=== PATIENT | male | born 1960 | race Caucasian/White ===

== ENCOUNTER 2025-05-29 05:12 | Inpatient (IN) | payer MEDICAID, SELFPAY ==
[2025-05-29] VITALS (20 sets, daily range): BP systolic 91–138; BP diastolic 61–118; PULSE 87–115; RESP 10–33; TEMP 35.7–36.7; O2SAT 80–100; BMI 24.4; BMI 23.3
--- NOTE | 2025-05-29 05:17 | EKG_ITS ---
[facility] Test Date: 2025-05-29 Pat Name: JULIANNA WU Department: Room: - Gender: Male [place] Tier: : 1960 Requested By: ED Temporary Provider Order Number: [id number] Reading MD: ED Temporary Provider Measurements Intervals [place] Rate: 112 P: [place]: QRS: 98 QRSD: 118 T: -51 QT: 338 QTc: 462 Interpretive Statements SUPRAVENTRICULAR TACHYCARDIA RIGHT BUNDLE BRANCH BLOCK [120+ ms QRS DURATION, UPRIGHT V1, 40+ ms S IN I/aVL/V4/V5/V6] ST DEVIATION AND MARKED T-WAVE ABNORMALITY, CONSIDER LATERAL ISCHEMIA [-0.5+ mV T-WAVE IN I/aVL/V5/V6] Compared to ECG 03/03/2018 09:40:22 T-wave abnormality now present Possible ischemia now present Sinus rhythm no longer present /store/S0/[id number].pdf
--- NOTE | 2025-05-29 05:22 | XR_ITS ---
EXAMINATION: AP chest single view TECHNIQUE: AP portable upright chest single view Date and time: May 29, 2025, 0523 hours, comparison 03/03/2018. INDICATION: Shortness of breath today. FINDINGS: Extensive bilateral pneumonia Mild to moderate right pleural effusion Mild enlargement cardiac contour with vascular congestion Moderate osteopenia IMPRESSION: Extensive bilateral pneumonia
--- NOTE | 2025-05-29 05:22 | XR_ITS ---
Examination: Abdomen sonogram, Limited Date and time of exam: May 29, 2025, 0625 hours INDICATIONS: Right upper abdominal pain this week Technique: Real-time kumar scale transabdominal sonographic images of the upper abdomen obtained. Findings: Negative for gallstones Gallbladder wall 0.14 cm, fluid adjacent to the gallbladder but the patient has ascites Common bile duct 0.40 cm Pancreas obscured by bowel gas Liver 14.2 cm ascites in the right upper abdomen and right lower abdomen Normal hepatopetal portal venous send Patent IVC IMPRESSION: Negative for cholelithiasis, negative for cholecystitis No common bile duct stones At least mild ascites
--- NOTE | 2025-05-29 05:23 | XR_ITS ---
EXAMINATION: Testicular sonography complete TECHNIQUE: Grayscale sonographic images testes, assessment arterial inflow and venous outflow Doppler spectral analysis color flow analysis Date and time: May 29, 2025, 0616 hours INDICATIONS: Testicular swelling and tenderness several months. FINDINGS: Right testis 3.3 cm epididymis 1.2 cm Arterial flow to testicle. No testicular mass No diagnostic visualization of the left testicle secondary to large hydrocele Possible solid mass in the scrotal sac 4 x 4.0 x 4.4 cm IMPRESSION: No right testicular torsion or testicular mass There is no diagnostic visualization of the left testicle, lack of patient cooperation Repeat this study when the patient is sedated or can cooperate
--- NOTE | 2025-05-29 05:23 | XR_ITS ---
Examination: CTA chest with intravenous contrast 2-D reconstructions 3-D reconstructions, vascular Date and time of exam: May 29, 2025, 0838 hours INDICATIONS: Chest pain shortness of breath today CTDI: vol (mGy) 7.35 DLP: (mGycm) 295 Technique: Multiple axial sections of the thorax have been obtained. 3 mm slice thickness, from below the hemidiaphragms to above the apices of the lungs. Mediastinal and lung density settings have been obtained. 2-D sagittal and coronal reconstructions. 3-D angiographic renderings, 3-D volume renderings, 3D post processing, vascular maximum intensity projections obtained. Contrast administered is 100 cc Isovue-370. Low dose protocols were performed. One or more of the following dose reduction techniques were used; automated exposure control, adjustment of the mA and/or KV according to patient size, use of iterative reconstruction technique. Findings: Multiple bilateral large pulmonary artery emboli including in distal left main pulmonary artery segment Pulmonary mass in the right upper lobe, at least 9 x 5.6 cm invading the right mediastinum with right hilar lymphadenopathy Large right malignant pleural effusion Pneumonia in the right lung Extensive pneumonia in the left upper lobe Multiple pulmonary nodules, the largest in the left lower lobe 7 mm Pericardial effusion measuring 10 mm at the cardiac apex Liver nodular in contour Anasarca Mild ascites Spleen is not enlarged No pancreatic mass No hydronephrosis Moderate thoracic spondylosis IMPRESSION: Mild bilateral pulmonary artery emboli 9 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
--- NOTE | 2025-05-29 05:23 | XR_ITS ---
Examination: Venous duplex lower extremity sonogram, bilateral. Date and time of exam: May 29, 2025, 0704 hours INDICATIONS: Elevated D-dimer today Technique: Multiple sonographic images of the deep venous system have been obtained. B-mode/2-D grayscale imaging of vascular structures and Doppler spectral analysis (waveforms) and color performed Both legs are examined. Findings: Deep venous systems do not demonstrate abnormal echogenicity. All visualized deep veins exhibit compressibility. All visualized deep veins exhibit augmentation. Impression: Negative for deep vein thrombosis
--- NOTE | 2025-05-29 05:23 | XR_ITS ---
Examination: CT abdomen with intravenous contrast CT pelvis with intravenous contrast 2-D coronal reconstructions 2-D sagittal reconstructions Date and time of exam: May 29, 2025, 0830 hours INDICATION: Generalized abdominal pain today. CTDI: vol (mGy) 6.76 DLP: (mGycm) 429 Technique: Multiple axial sections of the abdomen and pelvis have been obtained. 64 slice high-resolution scanner used. 3 mm axial sections have been obtained, post intravenous injection 100 cc Isovue-370 2-D sagittal, coronal reconstructions obtained. Low dose protocols were performed. One or more of the following dose reduction techniques were used; automated exposure control, adjustment of the mA and/or KV according to patient size, use of iterative reconstruction technique. Findings: Large right pleural effusion with right lung pneumonia and small pericardial effusion Liver irregular in contour, cirrhosis pattern Anasarca Mild ascites No definite gallstones Spleen is not enlarged No pancreatic mass Minimal nodular thickening left adrenal gland No hydronephrosis Aortic calcification no aneurysmal dilatation No bowel obstruction Urinary bladder intact Left inguinal hernia containing small bowel as well as colon but no incarcerated bowel Severe osteopenia Grade 1 spondylolisthesis L5 on S1 Advanced degenerative disc disease L5-S1 IMPRESSION: Large right pleural effusion Pneumonia right lung Cirrhosis Anasarca Mild ascites No bowel obstruction Left inguinal hernia containing small bowel and colon but no incarcerated bowel or bowel obstruction
[2025-05-29] MEDS: NITROGLYCERIN OINT 2% 1 INCH PACKET TOP (05:30)
[2025-05-29] MEDS: FUROSEMIDE INJ 10 MG/ML 4ML VIAL 40 MG IVP (05:31)
[2025-05-29] MEDS: MORPHINE SULF INJ 4 MG/ML VIAL 2 MG IV (05:31)
[2025-05-29 05:41] LABS: Base Excess -9 (-3-3); HCO3 14 mEq/L (20-26); Inspired Oxygen, FIO2 30 %; O2 Saturation 87 % (91-98); PCO2 24 mmHg (32.0-48.0); pH, Arterial 7.38 (7.35-7.45)
[2025-05-29 05:45] LABS: Allen Test Performed/OK; PO2 57 mmHg (83-108); Puncture Site Right Radial
[2025-05-29 05:45] LABS: Lactate (Lactic Acid) 9.0 mMol/L (0.4-2.0)
[2025-05-29 05:48] LABS: Basophils # (Auto) 0.1 Thou/mm3 (0.0-0.2); Basophils % (Auto) 0 % (0-2.5); Eosinophils # (Auto) 0.0 Thou/mm3 (0.0-0.5); Eosinophils % (Auto) 0 % (0-10); Hematocrit 46.8 % (41.0-53.0); Hemoglobin 13.4 g/dL (13.5-16.0); Immature Granulocytes Auto 0.95 Thou/mm3 (0.00-0.00); Lymphocytes # (Auto) 1.0 Thou/mm3 (1.0-4.8); Lymphocytes % (Auto) 7 % (10-50); Mean Corpuscular HGB Conc 28.6 g/dl (31.0-37.0); Mean Corpuscular Hemoglobin 25.7 pg (25.0-35.0); Mean Corpuscular Volume 90 fL (80-100); Monocytes # (Auto) 0.5 Thou/mm3 (0.0-0.8); Monocytes % (Auto) 3 % (0-12); Neutrophils # (Auto) 11.6 Thou/mm3 (1.8-7.7); Neutrophils % (Auto) 83 % (37-80); Nucleated Red Blood Cell # 0.12 Thou/mm3 (0.00-0.00); Nucleated Red Blood Cell % 1 /100 WBC (0); Platelet Count 129 Thou/mm3 (140-440); RDW Standard Deviation 65.0 fL (35.1-43.9); Red Blood Count 5.21 Miln/mm3 (4.50-5.90); White Blood Count 14.0 Thou/mm3 (3.8-10.6)
[2025-05-29 05:57] LABS: INR 1.7 (0.9-1.3); Partial Thromboplastin Time 28.8 Seconds (22.0-36.0); Prothrombin Time 17.1 Seconds (9.0-12.2)
[2025-05-29 06:01] LABS: Ammonia 16 uMol/L (11-32)
[2025-05-29 06:08] LABS: Sed Rate (ESR) 48 mm/hr (0-20)
[2025-05-29 06:26] LABS: D-Dimer > 3820 ng/mL (<600)
[2025-05-29 06:35] LABS: Acetaminophen 2.5 mcg/mL (10.0-20.0); Alanine Aminotransferase 398 U/L (10-49); Albumin, Serum 3.4 gm/dL (3.4-4.8); Albumin/Globulin Ratio 0.9 (1.2-2.2); Alcohol, Blood Medical < 10.0 mg/dL (0-10.0); Alkaline Phosphatase 147 U/L (46-116); Amylase 53 U/L (30-118); Anion Gap 18 (7-16); Aspartate Amino Transferase 436 U/L (0-34); BUN/Creatinine Ratio 20 Ratio (12-20); Bilirubin,Direct 1.0 mg/dL (0.0-0.3); Bilirubin,Total 1.8 mg/dL (0.3-1.2); Blood Urea Nitrogen 24 mg/dL (9-23); C-Reactive Protein 7.1 mg/dL (0.0-0.9); Calcium 9.0 mg/dL (8.3-10.6); Calcium (Corrected) 9.5 mg/dL (8.5-10.1); Carbon Dioxide 15.7 mMol/L (20.0-31.0); Chloride 108 mMol/L (98-107); Creatine Kinase 212 U/L (34-171); Creatinine (Component) 1.2 mg/dL (0.6-1.3); Estimated Creatinine Clearance 70.1 mL/min (>60); Globulin 4.0 gm/dL (2.3-3.5); Glucose 130 mg/dL (74-106); Lipase 38 U/L (12-53); Magnesium 2.2 mg/dL (1.6-2.6); Osmolality,Calculated 289 (275-295); Potassium 4.5 mMol/L (3.4-5.1); Procalcitonin 1.33 ng/ml (0.0-0.49); Salicylate < 3.0 mg/dL; Sodium 142 mMol/L (136-145); Thyroid Stimulating Hormone 3.42 uIU/mL (0.55-4.78); Total Protein 7.4 gm/dL (5.7-8.2); Troponin I 0.037 ng/mL (0.0-0.045); eGFR > 60 See Note
[2025-05-29 06:35] LABS: COVID-19 Antigen (In-House) Negative (Negative)
[2025-05-29 06:38] LABS: Influenza A Ag Negative; Influenza B Ag Negative
[2025-05-29] MEDS: MethylPREDNISolone SOD SUCC 62.5 MG/ML 2ML VIAL 125 MG IVP (06:47)
[2025-05-29] MEDS: PIPER/TAZO 3.375 GM PREMIX 3.375 GM/50 ML BAG IV ×3 (06:47→21:07)
[2025-05-29 06:48] LABS: B-Type Natriuretic Peptide 207 pg/mL (0-100)
[2025-05-29] MEDS: ALBUTEROL RT 2.5 MG/0.5 ML NEBU 5 MG INH (06:52)
[2025-05-29] MEDS: SODIUM CHLORIDE RT SOL 0.9% 3 ML NEBU INH (06:52)
[2025-05-29 07:12] LABS: Collection Type, Urine Clean Catch
[2025-05-29 07:53] LABS: Bilirubin,Urine Negative (Negative); Blood,Urine Negative (Negative); Clarity,Urine Clear (Clear/Hazy); Color,Urine Yellow (Lt Yel-Yel); Culture Indicated,Urine Not Indicated; Glucose, Urine Negative (Negative); Hyaline Casts,Urine < 1 /hpf (0-1); Ketones,Urine Negative (Negative); Leukocyte Esterase,Urine Negative (Negative); Nitrite,Urine Negative (Negative); PH,Urine 6.0 (5.0-7.0); Protein,Urine 1+ (Neg - Trace); RBC,Urine 7 /hpf (0-3); Specific Gravity,Urine 1.022 (1.001-1.035); Squamous Epithelial Cell,Urine < 1 /hpf (0-5); Urobilinogen,Urine 2.0 mg/dL (0.0-1.0); WBC,Urine 3 /hpf (0-5)
[2025-05-29 07:54] LABS: Amphetamine/Methamp Scrn,U Positive (Negative); Barbiturate Screen,Urine Negative (Negative); Benzodiazepines Screen,Urine Negative (Negative); Benzoylecgonine Screen, Ur Negative (Negative); Fentanyl Screen,Urine Negative (Negative); Opiate Screen,Urine Positive (Negative); THC Screen,Urine Positive (Negative)
--- NOTE | 2025-05-29 08:10 | PC.NURSE ---
Pt. here from home to room 1, pt. states he has been SOB X 1 week. Pt. is not in distress at this time. Pt. is on BiPaP and tolerating well. 2 warm blankets placed on pt. and he states thank you.
[2025-05-29 08:35] LABS: Reflex Lactate? Y
[2025-05-29 08:56] LABS: Lactic Acid, 3 HR 4.7 mMol/L (0.4-2.0)
--- NOTE | 2025-05-29 10:00 | PD.EDSOB ---
ED SOB =RME/HPI General Chief Complaint: Shortness of Breath/Dyspnea Stated Complaint: SOB Time Seen by Provider: 05/29/25 06:24 Arrival date/time: 05/29/25 05:12 Limitations: no limitations RME / HPI RME / HPI Narrative: 64 year old male with history of asthma presents to the ED BIBA from home for evaluation of shortness of breath today. Per medics, on scene patient appeared to be in respiratory distress, pale, and saturating 86% on 10L O2. Placed on a nonrebreather at 12L with improvement to 91%. In the ED, patient reports the shortness of breath began 2 weeks ago and worsened last night. Described feeling he was not getting enough air in that was not improved with use of home oxygen. Denies fevers, chills, sweats, chest pain, abdominal pain, n/v. Related Data Home Medications ?Medication ?Instructions ?Recorded ?Confirmed No Known Home Medications 03/02/18 03/02/18 Allergies Allergy/AdvReac Type Severity Reaction Status Date / Time No Known Allergies Allergy Unverified 03/06/18 10:09 Review of Systems Review of Systems Systems Reviewed: All systems reviewed, normal except as documented Past Medical History Past Medical History RESPIRATORY: Positive Asthma GASTROINTESTINAL: Positive Gastrointestinal Disorders (HERNIA) MUSCULOSKELETAL: Positive Musculoskeletal Disorders and Fractures (right forearm) PSYCHO/SOCIAL: Positive Psychiatric Problems, Schizophrenia and Anxiety OTHER HISTORY: Positive Chicken Pox and Measles Family History FAMILY HISTORY: Positive Family Respiratory Disorders (father-emphysema) and Family Cardiac Disorders (father-htn) Surgical History SURGICAL: Positive Ear Surgery, Tonsillectomy and Open Reduction Internal Fixation (right forearm) Social History SMOKING STATUS: Current every day smoker ED Exam General Limitations: Present no limitations General appearance: Present alert (oriented) and other (On my examination, the patient had BiPAP in place, answering questions appropriately) Head Head exam: Present atraumatic Eye Eye exam: Present normal appearance, PERRL and EOMI ENT ENT exam: Present normal exam, normal oropharynx and mucous membranes moist Neck Neck exam: Present normal inspection, full ROM and trachea midline Chest Chest inspection: Present normal inspection and symmetric chest wall rise Respiratory Respiratory exam: Present other (Anterior and posterior wheezing and rhonchi bilaterally) Cardiovascular Cardiovascular exam: Present normal rhythm, tachycardia and normal heart sounds Abdominal Exam Abdominal exam: Present soft and normal bowel sounds Extremities Exam Extremities exam: Present normal inspection and full ROM Back Exam Back exam: Present normal inspection and full ROM Neurological Exam Neurological exam: Present alert, oriented X3 and CN II-XII intact Psychiatric Psychiatric exam: Present normal affect and normal mood Skin Skin exam: Present warm, dry, intact and normal color Course Quality Measures none Orders Category Date Time Status Admit to Inpatient Status Routine Admission 05/29/25 12:08 Active Patient Condition Routine Admission 05/29/25 12:07 Ordered Bedside COVID-19 Antigen Test NOW Care 05/29/25 10:28 Active COVID-19 Screening Questionnaire NOW Care 05/29/25 09:[address] Screening NOW Care 05/29/25 05:23 Active Continuous Pulse Oximetry NOW Care 05/29/25 12:07 Active Continuous Pulse Oximetry STAT Care 05/29/25 06:36 Completed Decision to Admit X1 Care 05/29/25 09:52 Active EKG (ED ONLY) *Do not use* NOW Care 05/29/25 05:17 Completed NPO STAT Care 05/29/25 06:36 Active Neuro Check Q4H Care 05/29/25 12:07 Active Notify provider NEEDED Care 05/29/25 12:07 Active Notify provider NOW Care 05/29/25 12:14 Active Obtain weight daily Care 05/29/25 12:09 Active Saline [Insert IV] NOW Care 05/29/25 05:20 Active Strict Intake and Output Routine Care 05/29/25 06:36 Ordered Strict Intake and Output Routine Care 05/29/25 12:09 Ordered Referral Respiratory Therapy Stat Cons 05/29/25 05:20 Active Diet Cardiac Diet 05/29/25 Lunch Active CA echo doppler complete Stat Exams 05/29/25 12:[address] abdomen pelvis w con Stat Exams 05/29/25 05:[address] angio chest Stat Exams 05/29/25 05:23 Completed CXR [XR chest 1V post procedure] Stat Exams 05/29/25 12:16 Ordered EKG (ED Only) Stat Exams 05/29/25 05:17 Draft US abdomen limited Stat Exams 05/29/25 05:22 Completed US testicular Stat Exams 05/29/25 05:23 Completed US venous doppler LE BI Stat Exams 05/29/25 05:23 Completed XR chest 1V portable Stat Exams 05/29/25 05:22 Completed ABG [Arterial Blood Gas] Stat Lab 05/29/25 05:33 Completed Acetaminophen Stat Lab 05/29/25 05:25 Completed Alcohol, Blood Medical Stat Lab 05/29/25 05:25 Completed Ammonia Stat Lab 05/29/25 05:25 Completed Amylase Stat Lab 05/29/25 05:25 Completed Amylase,Pleural Fluid Routine Lab 05/29/25 12:02 Results BNP [B-Type Natriuretic Peptide] Stat Lab 05/29/25 05:25 Completed Bilirubin,Direct Stat Lab 05/29/25 05:25 Completed Blood Culture (Lab) Stat Lab 05/29/25 05:25 Received Body Fld Cult w Nela & Gram St Routine Lab 05/29/25 12:02 Received CBC AM DRAW Lab 05/30/25 05:00 Ordered CBC AM DRAW Lab 05/31/25 05:00 Ordered CBC AM DRAW Lab 06/01/25 05:00 Ordered CBC AM DRAW Lab 06/02/25 05:00 Ordered CBC AM DRAW Lab 06/03/25 05:00 Ordered CBC AM DRAW Lab 06/04/25 05:00 Ordered CBC AM DRAW Lab 06/05/25 05:00 Ordered CBC Stat Lab 05/29/25 05:25 Completed CK [Creatine Kinase] Stat Lab 05/29/25 05:25 Completed CMP [Comprehensive Metabolic Panel] AM DRAW Lab 05/30/25 05:00 Ordered CMP [Comprehensive Metabolic Panel] AM DRAW Lab 05/31/25 05:00 Ordered CMP [Comprehensive Metabolic Panel] AM DRAW Lab 06/01/25 05:00 Ordered CMP [Comprehensive Metabolic Panel] AM DRAW Lab 06/02/25 05:00 Ordered CMP [Comprehensive Metabolic Panel] AM DRAW Lab 06/03/25 05:00 Ordered CMP [Comprehensive Metabolic Panel] AM DRAW Lab 06/04/25 05:00 Ordered CMP [Comprehensive Metabolic Panel] AM DRAW Lab 06/05/25 05:00 Ordered CMP [Comprehensive Metabolic Panel] Stat Lab 05/29/25 05:25 Completed COVID-19 Antigen (In-House) Stat Lab 05/29/25 05:40 Completed CRP [C-Reactive Protein] Stat Lab 05/29/25 05:25 Completed D-Dimer Stat Lab 05/29/25 05:25 Completed Drug Screen,Urine Stat Lab 05/29/25 06:50 Completed ESR [Sed Rate (ESR)] Stat Lab 05/29/25 05:25 Completed Ferritin Stat Lab 05/29/25 12:33 Received Folate Stat Lab 05/29/25 12:33 Received Glucose,Pleural Fluid Routine Lab 05/29/25 12:02 Results Influenza A & B Rapid Panel Stat Lab 05/29/25 05:40 Completed Iron Panel Routine Lab 05/29/25 12:33 Received LDH (Lactate Dehydrogenase) Stat Lab 05/29/25 08:50 Received LDH,Pleural Fluid Routine Lab 05/29/25 12:02 Results Lactate (Lactic Acid) Stat Lab 05/29/25 05:25 Completed Lactic Acid, 3 HR Stat Lab 05/29/25 08:50 Completed Lipase Stat Lab 05/29/25 05:25 Completed Lipid Panel AM DRAW Lab 05/30/25 05:00 Ordered MRSA Nasal Screen Stat Lab 05/29/25 12:20 Ordered Magnesium AM DRAW Lab 05/30/25 05:00 Ordered Magnesium AM DRAW Lab 05/31/25 05:00 Ordered Magnesium AM DRAW Lab 06/01/25 05:00 Ordered Magnesium AM DRAW Lab 06/02/25 05:00 Ordered Magnesium AM DRAW Lab 06/03/25 05:00 Ordered Magnesium AM DRAW Lab 06/04/25 05:00 Ordered Magnesium AM DRAW Lab 06/05/25 05:00 Ordered Magnesium Stat Lab 05/29/25 05:25 Completed PT [Prothrombin Time with INR] Stat Lab 05/29/25 05:25 Completed PTT [Partial Thromboplastin Time] Stat Lab 05/29/25 05:25 Completed Partial Thromboplastin Time AM DRAW Lab 05/31/25 05:00 Ordered Path Review Blood Smear Stat Lab 05/29/25 12:33 Received Phosphorous AM DRAW Lab 05/30/25 05:00 Ordered Phosphorous AM DRAW Lab 05/31/25 05:00 Ordered Phosphorous AM DRAW Lab 06/01/25 05:00 Ordered Phosphorous AM DRAW Lab 06/02/25 05:00 Ordered Phosphorous AM DRAW Lab 06/03/25 05:00 Ordered Phosphorous AM DRAW Lab 06/04/25 05:00 Ordered Phosphorous AM DRAW Lab 06/05/25 05:00 Ordered Pleural Fld Cell Count Diff Routine Lab 05/29/25 12:02 Results Procalcitonin Stat Lab 05/29/25 05:25 Completed Protein Total,Pleural Fluid Routine Lab 05/29/25 12:02 Results Prothrombin Time with INR AM DRAW Lab 05/31/25 05:00 Ordered Salicylate Stat Lab 05/29/25 05:25 Completed Sputum Culture and Gram Stain Stat Lab 05/29/25 12:20 Ordered TSH [Thyroid Stimulating Hormone] Stat Lab 05/29/25 05:25 Completed Troponin I Stat Lab 05/29/25 05:25 Completed UA, C/S IF [Urinalysis, C/S if Indicated] Stat Lab 05/29/25 06:50 Completed Vitamin B12 Stat Lab 05/29/25 12:33 Received ALBUTEROL RT 0.5ml [Proventil Rt 0.5ml] Med 05/29/25 06:34 Discontinued 5 mg INH X1 ONE Acetaminophen Tab [Tylenol Tab] Med 05/29/25 12:07 Active 325 mg PO Q6H PRN Albuterol/Ipratr Rt Becky [Duoneb Rt Becky] Med 05/29/25 12:07 Active 3 ml INH Q2HR PRN Azithromycin Inj [Zithromax Inj] 500 mg Med 05/29/25 08:56 Active Sodium Chloride 0.9% 250 ml [Ns] 250 ml IV QDAY Enoxaparin [Lovenox] Med 05/29/25 09:25 Discontinued 80 mg SC X1 ONE Furosemide Inj [Lasix Inj] Med 05/29/25 05:20 Discontinued 40 mg IVP X1 ONE Heparin Inj Med 05/29/25 12:14 Discontinued 6,550 unit IV X1 ONE Heparin/D5w 25K 250 ML Ivpb [Heparin in D5w Ivpb] Med 05/29/25 12:15 Active 25,000 unit in 250 ml IV 18 units/kg/hr Ipratropium [place] Rt Becky [Atrovent Rt Becky] Med 05/29/25 13:00 Active 0.5 mg INH Q6HRRT Levalbuterol Rt [Xopenex Rt Becky] Med 05/29/25 13:00 Active 1.25 mg INH Q6HRRT MethylPREDNISolone.* [SoluMEDROL Inj] Med 05/29/25 06:34 Discontinued 125 mg IVP X1 ONE Morphine* Inj Med 05/29/25 05:20 Discontinued 2 mg IV X1 ONE Nicotine Patch [Nicoderm Patch] Med 05/29/25 12:15 Active 21 mg TOP QDAY Nitroglycerin Oint 2% [Nitro-paste Oint 2%] Med 05/29/25 05:20 Discontinued 1 inch TOP X1 ONE Ondansetron Inj [Zofran Inj] Med 05/29/25 12:07 Active 4 mg IVP Q6H PRN Pantoprazole Inj [Protonix Inj] Med 05/29/25 12:15 Active 40 mg IVP QDAY Piper/Tazo 3.375 gm Premix [Zosyn] Med 05/29/25 14:00 Active 3.375 gm in 50 ml IV Q8HR Piper/Tazo 3.375 gm Premix [Zosyn] Med 05/29/25 06:35 Discontinued 3.375 gm in 50 ml IV X1 Sodium Chloride 0.9% 1000 ml [Ns] 2,328 ml Med 05/29/25 06:35 Discontinued IV 2,328 mls/hr Sodium Chloride Rt Becky 0.9% [NS Rt Becky 0.9%] Med 05/29/25 06:34 Active 3 ml INH PRN PRN Sodium Chloride Rt Becky 0.9% [NS Rt Becky 0.9%] Med 05/29/25 12:07 Active 3 ml INH PRN PRN Sodium Chloride Rt Becky 10% [NS Rt Becky 10%] Med 05/29/25 12:20 Discontinued 5 ml INH X1 ONE cefTRIAXone [Rocephin] 2 gm Med 05/29/25 08:55 Discontinued SODIUM CHLORIDE 0.9% (Popper) [Ns 0.9% (P)] 50 ml IV X1 cefTRIAXone/D5w 1gm IV premix [Rocephin/D5w 1gm IV Med 05/30/25 09:00 Discontinued premix] 1 gm in 50 ml IV QDAY Code Status Routine Oth 05/29/25 12:07 Ordered BiPAP / CPAP NOW RT 05/29/25 05:20 Active Oxygen Delivery PRN RT 05/29/25 12:07 Active Sputum Induction PRN RT 05/29/25 12:30 Ordered Vital Signs Vital signs: Vital Signs Pulse Rate 115 H 05/29/25 05:18 Respiratory Rate 24 H 05/29/25 05:18 Blood Pressure 123/102 H 05/29/25 05:18 Pulse Oximetry (%) 92 L 05/29/25 05:18 Oxygen Delivery Method Oxy Mask 05/29/25 05:18 Oxygen Flow Rate 12 05/29/25 05:18 Shortness of Breath / Dyspnea MDM Narrative MDM Narrative:: I, Debby Bernard, am scribing for and in the presence of Dr. Sanchez. I spoke with hospitalist team for admission. Discussed patients PMHx, HPI, ED course, exam findings, labs, and radiology results. The hospitalist agree to accept the patient for admission. Patient data External records reviewed:: [facility] previous records and EMS form Clinical information provided by:: patient and EMS Social determinants that could affect healthcare access:: none Patient has the following chronic illnesses:: Asthma How is presenting disease/condition affected by chronic disease/condition?: exacerbated by Evaluation data The following diagnostics were reviewed and interpreted by me:: lab results, radiology exam(s) and EKG tracing(s) (EKG @ 05:16AM, interpreted by me, Sinus tachycardia, rate 112, right bundle branch block, no STEMI) Lab and/or radiology exams considered but not ordered:: None Interpretation Summary: Ordering Physician: Pola Love MD Date of Service: 05/29/25 Procedure(s): US abdomen limited Accession Number(s): [id number] cc: Pola Love MD; Davian Lucas MD; JITENDRA ROLLE~ Examination: Abdomen sonogram, Limited Date and time of exam: May 29, 2025, 0625 hours INDICATIONS: Right upper abdominal pain this week Technique: Real-time kumar scale transabdominal sonographic images of the upper abdomen obtained. Findings: Negative for gallstones Gallbladder wall 0.14 cm, fluid adjacent to the gallbladder but the patient has ascites Common bile duct 0.40 cm Pancreas obscured by bowel gas Liver 14.2 cm ascites in the right upper abdomen and right lower abdomen Normal hepatopetal portal venous send Patent IVC IMPRESSION: Negative for cholelithiasis, negative for cholecystitis No common bile duct stones At least mild ascites Dictated By: Davian Lucas MD Signed By: <Electronically signed by Davian Lucas MD in OV> 05/29/25 0817 Ordering Physician: Pola Love MD Date of Service: 05/29/25 Procedure(s): XR chest 1V portable Accession Number(s): [id number] cc: Pola Love MD; Davian Lucas MD~ EXAMINATION: AP chest single view TECHNIQUE: AP portable upright chest single view Date and time: May 29, 2025, 0523 hours, comparison 03/03/2018. INDICATION: Shortness of breath today. FINDINGS: Extensive bilateral pneumonia Mild to moderate right pleural effusion Mild enlargement cardiac contour with vascular congestion Moderate osteopenia IMPRESSION: Extensive bilateral pneumonia Dictated By: Davian Lucas MD Signed By: <Electronically signed by Davian Lucas MD in OV> 05/29/25 0736 Ordering Physician: Pola Love MD Date of Service: 05/29/25 Procedure(s): CT abdomen pelvis w con Accession Number(s): [id number] cc: Pola Love MD; Davian Lucas MD; JITENDRA ROLLE [employer]~ Examination: CT abdomen with intravenous contrast CT pelvis with intravenous contrast 2-D coronal reconstructions 2-D sagittal reconstructions Date and time of exam: May 29, 2025, 0830 hours INDICATION: Generalized abdominal pain today. CTDI: vol (mGy) 6.76 DLP: (mGycm) 429 Technique: Multiple axial sections of the abdomen and pelvis have been obtained. 64 slice high-resolution scanner used. 3 mm axial sections have been obtained, post intravenous injection 100 cc Isovue-370 2-D sagittal, coronal reconstructions obtained. Low dose protocols were performed. One or more of the following dose reduction techniques were used; automated exposure control, adjustment of the mA and/or KV according to patient size, use of iterative reconstruction technique. Findings: Large right pleural effusion with right lung pneumonia and small pericardial effusion Liver irregular in contour, cirrhosis pattern Anasarca Mild ascites No definite gallstones Spleen is not enlarged No pancreatic mass Minimal nodular thickening left adrenal gland No hydronephrosis Aortic calcification no aneurysmal dilatation No bowel obstruction Urinary bladder intact Left inguinal hernia containing small bowel as well as colon but no incarcerated bowel Severe osteopenia Grade 1 spondylolisthesis L5 on S1 Advanced degenerative disc disease L5-S1 IMPRESSION: Large right pleural effusion Pneumonia right lung Cirrhosis Anasarca Mild ascites No bowel obstruction Left inguinal hernia containing small bowel and colon but no incarcerated bowel or bowel obstruction Dictated By: Davian Lucas MD Signed By: <Electronically signed by Davian Lucas MD in OV> 05/29/25 0921 Ordering Physician: Pola Love MD Date of Service: 05/29/25 Procedure(s): CT angio chest Accession Number(s): [id number] cc: Pola Love MD; Davian Lucas MD; JITENDRA ROLLEP~ Examination: CTA chest with intravenous contrast 2-D reconstructions 3-D reconstructions, vascular Date and time of exam: May 29, 2025, 0838 hours INDICATIONS: Chest pain shortness of breath today CTDI: vol (mGy) 7.35 DLP: (mGycm) 295 Technique: Multiple axial sections of the thorax have been obtained. 3 mm slice thickness, from below the hemidiaphragms to above the apices of the lungs. Mediastinal and lung density settings have been obtained. 2-D sagittal and coronal reconstructions. 3-D angiographic renderings, 3-D volume renderings, 3D post processing, vascular maximum intensity projections obtained. Contrast administered is 100 cc Isovue-370. Low dose protocols were performed. One or more of the following dose reduction techniques were used; automated exposure control, adjustment of the mA and/or KV according to patient size, use of iterative reconstruction technique. Findings: Multiple bilateral large pulmonary artery emboli including in distal left main pulmonary artery segment Pulmonary mass in the right upper lobe, at least 9 x 5.6 cm invading the right mediastinum with right hilar lymphadenopathy Large right malignant pleural effusion Pneumonia in the right lung Extensive pneumonia in the left upper lobe Multiple pulmonary nodules, the largest in the left lower lobe 7 mm Pericardial effusion measuring 10 mm at the cardiac apex Liver nodular in contour Anasarca Mild ascites Spleen is not enlarged No pancreatic mass No hydronephrosis Moderate thoracic spondylosis IMPRESSION: Mild bilateral pulmonary artery emboli 9 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 Dictated By: Davian Lucas MD Signed By: <Electronically signed by Davian Lucas MD in OV> 05/29/25 0917 Ordering Physician: Pola Love MD Date of Service: 05/29/25 Procedure(s): US testicular Accession Number(s): [id number] cc: Pola Love MD; Davian Lucas MD; JITENDRA ROLLE~ EXAMINATION: Testicular sonography complete TECHNIQUE: Grayscale sonographic images testes, assessment arterial inflow and venous outflow Doppler spectral analysis color flow analysis Date and time: May 29, 2025, 0616 hours INDICATIONS: Testicular swelling and tenderness several months. FINDINGS: Right testis 3.3 cm epididymis 1.2 cm Arterial flow to testicle. No testicular mass No diagnostic visualization of the left testicle secondary to large hydrocele Possible solid mass in the scrotal sac 4 x 4.0 x 4.4 cm IMPRESSION: No right testicular torsion or testicular mass There is no diagnostic visualization of the left testicle, lack of patient cooperation Repeat this study when the patient is sedated or can cooperate Dictated By: Davian Lucas MD Signed By: <Electronically signed by Davian Lucas MD in OV> 05/29/25 0819 Ordering Physician: Pola Love MD Date of Service: 05/29/25 Procedure(s): US venous doppler LE Accession Number(s): [id number] cc: Pola Love MD; Davian Lucas MD; JITENDRA ROLLE~ Examination: Venous duplex lower extremity sonogram, bilateral. Date and time of exam: May 29, 2025, 0704 hours INDICATIONS: Elevated D-dimer today Technique: Multiple sonographic images of the deep venous system have been obtained. B-mode/2-D grayscale imaging of vascular structures and Doppler spectral analysis (waveforms) and color performed Both legs are examined. Findings: Deep venous systems do not demonstrate abnormal echogenicity. All visualized deep veins exhibit compressibility. All visualized deep veins exhibit augmentation. Impression: Negative for deep vein thrombosis Dictated By: Davian Lucas MD Signed By: <Electronically signed by Davian Lucas MD in OV> 05/29/25 0820 Medications / Prescriptions Medications or Prescriptions considered but not ordered:: None Medication administrations:: Medication Administration History Acetaminophen (Acetaminophen 325 Mg Tablet) 325 mg PO Q6H PRN PRN Reason: Fever >101.5, Pain 1-3 Stop: 06/28/25 12:06 Albuterol/Ipratropium (Albuterol/Ipratropium (Duoneb) Rt Becky 3 Ml Nebu) 3 ml INH Q2HR PRN PRN Reason: SHORTNESS OF BREATH OR WHEEZE Stop: 06/28/25 12:06 Azithromycin 500 mg/ Sodium (Chloride) 250 mls @ 250 mls/hr IV QDAY COTY Stop: 06/01/25 08:55 Last Admin: 05/29/25 11:51 Dose: 250 mls/hr Documented By: Admin: 05/29/25 10:48 Dose: Not Given Documented By: DB Non-Admin Reason: Cancelled by Provider Comments: CANCELLED BY Heparin Sodium/Dextrose (Heparin In D5w Ivpb) 25,000 unit in 250 mls @ 14.696 mls/hr IV .Q17H1M COTY; Protocol Stop: 06/12/25 12:14 Piperacillin/Tazobactam/Dextrose (Zosyn) 3.375 gm in 50 mls @ 12.5 mls/hr IV Q8HR COTY; Protocol Stop: 06/05/25 13:59 Ipratropium [place] (Ipratropium Rt 0.5 Mg/ 2.5 Ml Nebu) 0.5 mg INH Q6HRRT COTY Stop: 06/28/25 12:59 Levalbuterol HCl (Levalbuterol Rt 1.25 Mg/0.5 Ml Nebu) 1.25 mg INH Q6HRRT COTY Stop: 06/28/25 12:59 Nicotine (Nicotine Patch 21 Mg/24 Hr Patch.Td24) 21 mg TOP QDAY COTY Stop: 06/28/25 12:14 Ondansetron HCl (Ondansetron Inj 2 Mg/Ml Inj 2 Ml) 4 mg IVP Q6H PRN; Protocol PRN Reason: NAUSEA OR VOMITING Stop: 06/28/25 12:06 Pantoprazole Sodium (Pantoprazole Inj 40 Mg Vial) 40 mg IVP QDAY COTY Stop: 06/28/25 12:14 Sodium Chloride (Sodium Chloride Rt Becky 0.9% 3 Ml Nebu) 3 ml INH PRN PRN PRN Reason: SOLN Stop: 06/28/25 06:33 Last Admin: 05/29/25 06:52 Dose: 3 ml Documented By: [facility] Sodium Chloride (Sodium Chloride Rt Becky 0.9% 3 Ml Nebu) 3 ml INH PRN PRN PRN Reason: SOLN Stop: 06/28/25 12:06 Discontinued Medications Albuterol (Albuterol Rt 2.5 Mg/0.5 Ml Nebu) 5 mg INH X1 ONE Stop: 05/29/25 06:35 Last Admin: 05/29/25 06:52 Dose: 5 mg Documented By: [facility] Enoxaparin Sodium (Enoxaparin Sod Inj 80 Mg/0.8 Ml Syringe) 80 mg SC X1 ONE Stop: 05/29/25 09:26 Last Admin: 05/29/25 10:48 Dose: Not Given Documented By: ANNALISE Non-Admin Reason: Cancelled by Provider Comments: CANCELLED BY Furosemide (Furosemide Inj 10 Mg/Ml 4ml Vial) 40 mg IVP X1 ONE Stop: 05/29/25 05:21 Last Admin: 05/29/25 05:31 Dose: 40 mg Documented By: REN Heparin Sodium (Porcine) (Heparin Sod Inj 5000 Unit/Ml Vial) 6,550 unit 80 unit/kg (6550 unit) IV X1 ONE; Protocol Stop: 05/29/25 12:15 Sodium Chloride (Ns) 2,328 mls @ 2,328 mls/hr 30 ml/kg infuse over 60 min (2328 ml) IV .Q1H ONE Stop: 05/29/25 07:34 Last Admin: 05/29/25 10:47 Dose: Not Given Documented By: ANNALISE Non-Admin Reason: Cancelled by Provider Comments: CANCELLED BY Piperacillin/Tazobactam/Dextrose (Zosyn) 3.375 gm in 50 mls @ 100 mls/hr IV X1 ONE Stop: 05/29/25 07:04 Last Infusion: 05/29/25 07:17 Dose: Infused Documented By: Admin: 05/29/25 06:47 Dose: 100 mls/hr Documented By: REN Ceftriaxone Sodium 2 gm/ (Sodium Chloride) 50 mls @ 100 mls/hr IV X1 ONE Stop: 05/29/25 09:24 Last Infusion: 05/29/25 11:29 Dose: Infused Documented By: Admin: 05/29/25 10:59 Dose: 100 mls/hr Documented By: DB Ceftriaxone Sodium/Dextrose (Rocephin/D5w 1gm Iv Premix) 1 gm in 50 mls @ 100 mls/hr IV QDAY COTY Stop: 06/06/25 08:59 Methylprednisolone Sodium Succinate (Methylprednisolone Sod Succ 62.5 Mg/Ml 2ml Vial) 125 mg IVP X1 ONE Stop: 05/29/25 06:35 Last Admin: 05/29/25 06:47 Dose: 125 mg Documented By: AC Morphine Sulfate (Morphine Sulf Inj 4 Mg/Ml Vial) 2 mg IV X1 ONE Stop: 05/29/25 05:21 Last Admin: 05/29/25 05:31 Dose: 2 mg Documented By: AC Nitroglycerin (Nitroglycerin Oint 2% 1 Inch Packet) 1 inch TOP X1 ONE Stop: 05/29/25 05:21 Last Admin: 05/29/25 05:30 Dose: 1 inch Documented By: REN Sodium Chloride (Sodium Chloride Rt 10% 15 Ml Nebu) 5 ml INH X1 ONE Stop: 05/29/25 12:21 See above Consultations Consultation(s) initiated? (list below): Yes Consultation #1 (Physician, Specialty, Details): See MDM Diagnosis Shortness of Breath Differential Diagnosis: acute exacerbation of chronic obstructive airways disease, congestive heart failure, community acquired pneumonia, asthma with exacerbation and pulmonary embolism Most likely diagnosis given after review of the tests above:: Bilateral pneumonia respiratory failure bilateral pulmonary embolism leukocytosis elevated LFTs methamphetamine abuse Admission Indicated Admission indicated?: indicated Admission Request Was there a request for admission?: Yes Admission Attestation Admission request attestation: Discussed case with [] from Hospitalist service regarding admission. Discussed patients ED course, exam findings, labs, and radiology results. The Hospitalist [agrees,declines] to accept the patient for admission. Disposition Plan Disposition Plan: Admit Discharge Plan Plan Patient Disposition: Admit Acute Care w/in Hospital Prescriptions/Referrals Prescriptions/Med Rec: No Action No Known Home Medications Referrals: Jitendra Rolle FNP [Primary Care Provider] - In 1 week Problem List Clinical Impression: Community acquired pneumonia, Respiratory failure with hypoxia, Elevated LFTs, COPD (chronic obstructive pulmonary disease) Patient/Caregiver Discharge Instructions Print Language: Czech Stand Alone Forms: Tabatha Award Info., Patient Portal Info Letter
--- NOTE | 2025-05-29 10:39 | PC.NURSE ---
Dr. Ballesteros is bedside talking to pt.
[2025-05-29] MEDS: cefTRIAXone 2 GM in SODIUM CHLORIDE 0.9% (Popper) 50 ML IV (10:59)
--- NOTE | 2025-05-29 11:02 | PC.NURSE ---
Dr. Ballesteros is bedside to do a thoracentesis, Dr. Ballesteros explained procedure and answered pt.'s questions regarding procedure and pt. signed consent for thoracentesis.
--- NOTE | 2025-05-29 11:05 | PC.NURSE ---
Dr. Jolly is bedside with Dr. Ballesteros.
--- NOTE | 2025-05-29 11:20 | PC.NURSE ---
Dr. Ballesteros and Dr. Jolly bedside doing a thoracentisis, pt. sitting up on left side of the bed and tolerated well.
--- NOTE | 2025-05-29 11:40 | PC.NURSE ---
Dr. Ballesteros bedside and thoracentisis draining bedside, 650 mls at this time.
--- NOTE | 2025-05-29 11:43 | PC.NURSE ---
Dr. Ballesteros removed thoracentisis, pt. tolerated well. 750 mls total sent to lab per Dr. Ballesteros's orders.
[2025-05-29] MEDS: AZITHROMYCIN INJ 500 MG in SODIUM CHLORIDE 0.9% 250 ML 250 ML 250 MG IV (11:51)
--- NOTE | 2025-05-29 12:07 | ECHO_ITS ---
Patient Info Name: Zen Yost Age: 64 years : 1960 Gender: Male Ht: 183 cm Wt: 82 kg BSA: 2.04 m2 BP: 97 / 78 mmHg HR: 102 bpm Exam Date: 05/30/2025 8:45 AM Admit Date: 05/29/2025 Site: [facility] Room Number: 278 Patient Status: I Technical Quality: Fair Exam Type: CA echo doppler complete Refrigerating Engineer: Christina Anderson Ordering Physician: Iwona Ballesteros Study Info Indications Pulmonary Embolism, rule out RHS - Primary Location: [id number] Left Ventricular Outflow Tract Name Value Normal LVOT 2D LVOT Diameter 1.8 cm LVOT Doppler LVOT Peak Velocity 96 cm/s LVOT Mean Gradient 2 mmHg LVOT VTI 17 cm LVOT VTI/AV VTI Ratio 1.1 LVOT Stroke Volume 43 ml Pulmonic Valve Name Value Normal PV Doppler PV Peak Velocity 65 cm/s Mitral Valve Name Value Normal MV Doppler MV Decel Sauk 410 cm/s2 MV PHT 44 ms MV Area (PHT) 5.0 cm2 4.0-5.0 MV Diastolic Function MV E Peak Velocity 62 cm/s MV A Peak Velocity 42 cm/s MV E/A 1.5 MV Annular TDI MV Septal e' Velocity 6.0 cm/s MV E/e' (Septal) 10.4 MV Lateral e' Velocity 5.8 cm/s MV E/e' (Lateral) 10.8 MV e' Average 5.88 cm/s MV E/e' (Average) 10.6 Tricuspid Valve Name Value Normal TV Regurgitation Doppler TR Peak Velocity 122 cm/s Estimated PAP/RSVP RA Pressure 15 mmHg <=5 PA Systolic Pressure 21 mmHg <36 RV Systolic Pressure 21 mmHg <36 TV Annular TDI TV Lateral Coleen s' Velocity 10.3 cm/s >=9.5 Aortic Valve Name Value Normal AV 2D/MM AV Cusp Sep (MM) 1.5 cm AV Doppler AV Peak Velocity 106 cm/s AV Mean Gradient 3 mmHg AV VTI 15 cm AV Area (Cont Eq VTI) 2.8 cm2 >=3.0 AV Area (Cont Eq Maulik) 2.3 cm2 AV DI (Maulik) 0.91 AV Regurgitation 2D LVOT Area 2.5 cm2 Ventricles Name Value Normal LV Dimensions 2D/MM IVS Diastolic Thickness (2D) 0.6 cm 0.6-1.0 LVID Diastole (2D) 3.6 cm 4.2-5.8 LVIW Diastolic Thickness (2D) 0.9 cm 0.6-1.0 LVID Systole (2D) 2.8 cm 2.5-4.0 LVOT Diameter 1.8 cm LV Mass (2D Cubed) 72.15 g 88.00-224.00 LV Mass Index (2D Cubed) 35 g/m2 49-115 Relative Wall Thickness (2D) 0.50 <=0.42 IVS/LVIW Diastolic Thickness (2D) 0.67 0.00-1.50 LV Fractional Shortening/Ejection Fraction 2D/MM LV Fractional Shortening (2D) 22 % 25-43 LV EF (2D Teichholz) 46 % RV Dimensions 2D/MM TV Lateral Coleen s' Velocity 10.3 cm/s >=9.5 Atria Name Value Normal LA Dimensions LA Volume (4C A-L) 30 ml LA Volume (BP A-L) 40 ml Left Ventricle Left ventricular chamber dimension is normal. Left ventricular systolic function is normal with visually estimated ejection fraction of 55-60%. There is normal geometry noted in the left ventricle. Left ventricular segmental wall motion is normal. There is normal diastolic function in the left ventricle. Right Ventricle Right ventricular chamber dimension is normal. Right ventricular systolic function is normal. Left Atrium Left atrial chamber dimension is mildly enlarged. Right Atrium Right atrial chamber dimension is normal. Aortic Valve The aortic valve is trileaflet. There is no aortic valve sclerosis. There is no aortic valve stenosis with a peak velocity of 106 cm/s, mean gradient of 3 mmHg, and aortic valve area of 2.8 cm2. There is no aortic valve regurgitation. Pulmonic Valve The pulmonic valve is normal. There is no pulmonic valve stenosis. There is no pulmonic regurgitation. Mitral Valve The mitral valve has normal leaflets. There is no mitral valve stenosis. There is trace mitral valve regurgitation. Tricuspid Valve The tricuspid valve leaflets are normal. There is no tricuspid valve stenosis. There is trace tricuspid valve regurgitation. No pulmonary hypertension, estimated pulmonary arterial systolic pressure is 21 mmHg and systemic blood pressure of 97 mmHg in systole. Pericardium/Pleural The pericardium appears normal. There is small pericardial effusion with no tamponade. No pleural effusion visualized. Inferior Vena Cava Dilated inferior vena cava with >50% collapse upon inspiration consistent with normal right atrial pressure, 15 mmHg. Aorta The aortic measurements are indexed to age and body surface area. Summary 1. Left ventricle size is normal and systolic function is normal. Estimated ejection fraction is 55-60%. There is normal diastolic function. 2. Right ventricle chamber size is normal and systolic function is normal. Estimated RVSP is 21 mmHg. 3. There is trace mitral valve regurgitation. 4. There is trace tricuspid valve regurgitation. 5. The left atrium is mildly enlarged. The right atrium is normal. 6. Dilated IVC with estimated RA pressure 15 mmHg. Report Signatures Finalized by Kofi Diaz on 05/30/2025 05:45 PM
--- NOTE | 2025-05-29 12:15 | PC.NURSE ---
Dr. Shetty is bedside with Dr. Ballesteros talking to pt. and removed BiPap from pt. Pt. on O2 via NC at 6L, tolerating well.
--- NOTE | 2025-05-29 12:16 | XR_ITS ---
EXAMINATION: AP chest single view TECHNIQUE: AP portable semiupright chest single view Date and time: May 29, 2025, 12:55 p.m., comparison May 29, 2025 0532 hours INDICATIONS: Post thoracentesis FINDINGS: Extensive bilateral pneumonia, pulmonary mass in the right upper lobe, please see the CT chest report today No pneumothorax post thoracentesis with decrease in right pleural fluid Mild enlargement cardiac contour IMPRESSION: No pneumothorax post thoracentesis Large pulmonary mass right upper lobe, please see the CT chest report today Bilateral pneumonia
[2025-05-29 12:30] LABS: Pleural Fluid WBC 12521 /cmm
[2025-05-29 12:41] LABS: Pleural Fluid Appearance Cloudy; Pleural Fluid Color Straw
[2025-05-29 12:42] LABS: Pleural Fluid Mononuclear 23 %; Pleural Fluid Polynuclear 77 %; Pleural Fluid RBC 18000 /cmm
--- NOTE | 2025-05-29 12:49 | PD.RESHP ---
Documentation for date of: 05/29/25 HPI History of Present Illness Chief complaint: Shortness of breath, weakness History of present illness: Mr. Yost is a 64-year-old male with past medical history of schizophrenia, COPD on supplemental home oxygen, chronic active smoker greater than 40 pack years and status post right inguinal hernia repair in 2018 who presented to [facility] emergency department with a chief complaint of shortness of breath from home, per EMS patient appeared to be in respiratory distress was saturating 86% on 10 L oxygen, was started on nonrebreather 12 L by EMS. Patient is a poor historian due to underlying schizophrenia has pressed speech talking continuously about nonrelevant things at times however he reported that he was feeling weak for the last 2 weeks and is not able to move around much. He does complain of shortness of breath, orthopnea and during interview patient had episodes of significant anxiety. Patient is a chronic active heavy smoker with greater than 40 pack years. Patient otherwise denies any other medical history, syncope, chest pain, headache, diarrhea, nausea, vomiting. Some history obtained from patient's brother at bedside who is his next of kin, patient was on 8 L supplemental oxygen per brother at home and was using breathing treatments for the last 2 weeks. Patient follows [facility] as PCP. ED Course: ED Vitals: On presentation in ED blood pressure 123/102, heart rate 115, respiratory rate 24, temp 98.0, 92% on 12 L oxy mask and was started on BiPAP ED Labs: ED labs show WBC 14.0, hemoglobin 13.4, MCH 28.6, platelet count 129, neutrophilia, ESR 48, INR 1.7, PT 17.1, APTT 28.8, D-dimer greater than 3820. ABG showed pH 7.38, pCO2 24. CMP shows sodium 142 potassium 4.5 chloride 108 bicarb 15.7 anion gap 18 BUN 24 creatinine 1.2 GFR greater than 60, glucose 130, lactic acid 9.0, corrected calcium 9.5, magnesium 2.2, total bilirubin 1.8, AST 436, ALT 398, direct bilirubin 1.0, alk phos 147, CK 212, troponin 0.037, CRP 7.1, BNP 207, Pro-Antony 1.33 TSH 3.42. Urinalysis shows protein 1+ clear yellow urine, drug screen positive for opiates methamphetamine and marijuana. ED Imaging:EKG in ER shows right bundle branch block, significant artifact defect in EKG, abdominal ultrasound showed no cholelithiasis and cholecystitis, mild ascites. 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 Multiple metastatic pulmonary nodule, small pericardial effusion, cirrhosis pattern and liver anasarca and mild ascites testicular ultrasound shows no torsion or mass. Bilateral venous Doppler negative for DVT ED Treatment:Patient was given nitro topical x 1, Lasix 40 IV x 1, 2 mg of morphine, methylprednisolone 125 mg, IV Zosyn, albuterol 5 mg inhalational x 1. Review of Systems Review of Systems Narrative Review of Systems: ROS: -CONSTITUTIONAL: Denies weight loss, fever and chills. -HEENT: Denies changes in vision and hearing. -RESPIRATORY: Positive for SOB and cough. -CV: Denies palpitations and Chest Pain. -GI: Denies abdominal pain, nausea, vomiting,constipation and diarrhea. -: Denies dysuria and urinary frequency. -MSK: Denies myalgia and joint pain. -SKIN: Denies rash and pruritus. -NEUROLOGICAL: Denies headache and syncope. -PSYCHIATRIC: Denies recent changes in mood. Positive for anxiety Past Medical History Past Medical History Comments PMH COMMENT: PMH: As above PSHx: Inguinal hernia repair 2018, tonsillectomy, arm 1979 Allergies: No known drug and food allergies Social history: -Smoking: Positive chronic active smoker, greater than 40 pack years, 1-1/2 pack/day -Alcohol Use: Positive for alcohol use in the past -Illicit Drug Use: Urine drug screen positive for methamphetamine, admits to meth use -Occupation: Retired Family History: No pertinent family history Exam Vital Signs Temp Pulse Resp BP Pulse Ox O2 Del Method O2 Flow Rate 97.6 F 103 H 17 110/91 H 100 BiPAP 12 05/29/25 10:22 05/29/25 11:45 05/29/25 11:45 05/29/25 11:45 05/29/25 11:45 05/29/25 11:45 05/29/25 05:18 FiO2 40 05/29/25 10:22 Narrative Exam Physical Exam General: Awake and in no acute distress. Conversational and non-toxic appearing. Frail and cachectic. Anxious, pressured speech. HEENT: Normocephalic, atraumatic, mucous membranes moist. Heart: Sinus tachycardia, no murmurs. Lungs: Bilateral wheezing, decreased breath sounds right lower lobe. Abdomen: Soft, nondistended, nontender, positive bowel sounds. ?No guarding or rebound tenderness. Neurologic: Alert and oriented x3, no gross neurological deficit, and patient able to move all 4 extremities. Extremities: 2+ bilateral lower extremity edema, positive mottling bilateral feet Skin: No rash or ecchymoses. Results: Labs 05/30/25 04:13 05/30/25 04:13 Labs: Short CBC 05/29/25 Range/Units 05:25 WBC 14.0 H (3.8-10.6) Thou/mm3 Hgb 13.4 L (13.5-16.0) g/dL Hct 46.8 (41.0-53.0) % Plt Count 129 L (140-440) Thou/mm3 BMP 05/29/25 05:25 Sodium 142 Potassium 4.5 Chloride 108 H Carbon Dioxide 15.7 L BUN 24 H Creatinine 1.2 Glucose 130 H Calcium 9.0 Cardiac Enzymes 05/29/25 Range/Units 05:25 Total Creatine Kinase 212 H (34-171) U/L Troponin I 0.037 (0.0-0.045) ng/mL Liver Function 05/29/25 Range/Units 05:25 Total Bilirubin 1.8 H (0.3-1.2) mg/dL Direct Bilirubin 1.0 H (0.0-0.3) mg/dL AST 436 H (0-34) U/L ALT 398 H (10-49) U/L Alkaline Phosphatase 147 H (46-116) U/L Albumin 3.4 (3.4-4.8) gm/dL Urine 05/29/25 Range/Units 06:50 Urine Color Yellow (Lt Yel-Yel) Urine Clarity Clear (Clear/Hazy) Urine pH 6.0 (5.0-7.0) Ur Specific [place] 1.022 (1.001-1.035) Urine Protein 1+ A (Neg - Trace) Urine Glucose (UA) Negative (Negative) ABG Interpretation ABG results: 05/29/25 05:33 ABG pH 7.38 ABG pCO2 24 L ABG pO2 57 L* ABG HCO3 14 L ABG O2 Saturation 87 L ABG Base Excess -9 L Quality Measures Quality Measures VTE prophylaxis Medications Home Medications and Allergies Home Medications ?Medication ?Instructions ?Recorded ?Confirmed ?Type No Known Home Medications 03/02/18 05/29/25 History Allergies Allergy/AdvReac Type Severity Reaction Status Date / Time No Known Allergies Allergy Unverified 03/06/18 10:09 Visit Medications Acetaminophen (Acetaminophen 325 Mg Tablet) 325 mg PO Q6H PRN PRN Reason: Fever >101.5, Pain 1-3 Stop: 06/28/25 12:06 Albuterol/Ipratropium (Albuterol/Ipratropium (Duoneb) Rt Becky 3 Ml Nebu) 3 ml INH Q2HR PRN PRN Reason: SHORTNESS OF BREATH OR WHEEZE Stop: 06/28/25 12:06 Azithromycin 500 mg/ Sodium (Chloride) 250 mls @ 250 mls/hr IV QDAY COTY Stop: 06/01/25 08:55 Last Admin: 05/29/25 11:51 Dose: 250 mls/hr Heparin Sodium/Dextrose (Heparin In D5w Ivpb) 25,000 unit in 250 mls @ 14.696 mls/hr IV .Q17H1M COTY; Protocol Stop: 06/12/25 12:14 Piperacillin/Tazobactam/Dextrose (Zosyn) 3.375 gm in 50 mls @ 12.5 mls/hr IV Q8HR COTY; Protocol Stop: 06/05/25 13:59 Ipratropium [place] (Ipratropium Rt 0.5 Mg/ 2.5 Ml Nebu) 0.5 mg INH Q6HRRT COTY Stop: 06/28/25 12:59 Levalbuterol HCl (Levalbuterol Rt 1.25 Mg/0.5 Ml Nebu) 1.25 mg INH Q6HRRT COTY Stop: 06/28/25 12:59 Nicotine (Nicotine Patch 21 Mg/24 Hr Patch.Td24) 21 mg TOP QDAY COTY Stop: 06/28/25 12:14 Ondansetron HCl (Ondansetron Inj 2 Mg/Ml Inj 2 Ml) 4 mg IVP Q6H PRN; Protocol PRN Reason: NAUSEA OR VOMITING Stop: 06/28/25 12:06 Pantoprazole Sodium (Pantoprazole Inj 40 Mg Vial) 40 mg IVP QDAY COTY Stop: 06/28/25 12:14 Sodium Chloride (Sodium Chloride Rt Becky 0.9% 3 Ml Nebu) 3 ml INH PRN PRN PRN Reason: SOLN Stop: 06/28/25 06:33 Last Admin: 05/29/25 06:52 Dose: 3 ml Sodium Chloride (Sodium Chloride Rt Becky 0.9% 3 Ml Nebu) 3 ml INH PRN PRN PRN Reason: SOLN Stop: 06/28/25 12:06 Discontinued Medications Albuterol (Albuterol Rt 2.5 Mg/0.5 Ml Nebu) 5 mg INH X1 ONE Stop: 05/29/25 06:35 Last Admin: 05/29/25 06:52 Dose: 5 mg Enoxaparin Sodium (Enoxaparin Sod Inj 80 Mg/0.8 Ml Syringe) 80 mg SC X1 ONE Stop: 05/29/25 09:26 Last Admin: 05/29/25 10:48 Dose: Not Given Furosemide (Furosemide Inj 10 Mg/Ml 4ml Vial) 40 mg IVP X1 ONE Stop: 05/29/25 05:21 Last Admin: 05/29/25 05:31 Dose: 40 mg Heparin Sodium (Porcine) (Heparin Sod Inj 5000 Unit/Ml Vial) 6,550 unit 80 unit/kg (6550 unit) IV X1 ONE; Protocol Stop: 05/29/25 12:15 Sodium Chloride (Ns) 2,328 mls @ 2,328 mls/hr 30 ml/kg infuse over 60 min (2328 ml) IV .Q1H ONE Stop: 05/29/25 07:34 Last Admin: 05/29/25 10:47 Dose: Not Given Piperacillin/Tazobactam/Dextrose (Zosyn) 3.375 gm in 50 mls @ 100 mls/hr IV X1 ONE Stop: 05/29/25 07:04 Last Infusion: 05/29/25 07:17 Dose: Infused Ceftriaxone Sodium 2 gm/ (Sodium Chloride) 50 mls @ 100 mls/hr IV X1 ONE Stop: 05/29/25 09:24 Last Infusion: 05/29/25 11:29 Dose: Infused Ceftriaxone Sodium/Dextrose (Rocephin/D5w 1gm Iv Premix) 1 gm in 50 mls @ 100 mls/hr IV QDAY COTY Stop: 06/06/25 08:59 Methylprednisolone Sodium Succinate (Methylprednisolone Sod Succ 62.5 Mg/Ml 2ml Vial) 125 mg IVP X1 ONE Stop: 05/29/25 06:35 Last Admin: 05/29/25 06:47 Dose: 125 mg Morphine Sulfate (Morphine Sulf Inj 4 Mg/Ml Vial) 2 mg IV X1 ONE Stop: 05/29/25 05:21 Last Admin: 05/29/25 05:31 Dose: 2 mg Nitroglycerin (Nitroglycerin Oint 2% 1 Inch Packet) 1 inch TOP X1 ONE Stop: 05/29/25 05:21 Last Admin: 05/29/25 05:30 Dose: 1 inch Sodium Chloride (Sodium Chloride Rt 10% 15 Ml Nebu) 5 ml INH X1 ONE Stop: 05/29/25 12:21 Assessment & Plan Plan Assessment and plan: Summary: Mr. Yost is a 64-year-old male with past medical history of schizophrenia, COPD on supplemental home oxygen, chronic active smoker greater than 40 pack years and status post right inguinal hernia repair in 2018 who presented to [facility] emergency department with a chief complaint of shortness of breath. Patient admitted for acute on chronic hypoxic respiratory failure, pleural effusion, pneumonia and pulmonary emboli. #Acute on chronic hypoxic respiratory failure #Right lung pleural effusion, suspicion of malignant pleural effusion status post thoracentesis 05/29 #Community-acquired pneumonia, left upper lobe, right lower lobe #Mild bilateral pulmonary artery emboli #COPD #Leukocytosis Patient presented with shortness of breath, requiring supplemental oxygen, does use supplemental oxygen at home, unknown quantity however per brother on 8 L at home for the last 2 weeks. Patient on presentation requiring 12 L through nonrebreather, was placed on BiPAP in ED. 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 D-dimer elevated greater than 3820, lactate on presentation 9.0, Pro-Antony 1.33, BNP 207, troponin 0.037, WBC 14.0, neutrophilia noted Findings discussed with employment educational coord Dr. Jolly, thoracentesis performed on BiPAP after taking consent from patient, 750 cc drained. See op report for details. Postprocedure no pneumothorax, improved effusion noted. Patient transition to nasal cannula after procedure SpO2 greater than 92 on 6 L. No suspicion of underlying COPD exacerbation currently. 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 Suspicion of malignancy - Will consider oncology consult in a.m. #Bilateral lower extremity edema #Anasarca Patient has bilateral lower extremity edema, ascites and anasarca. Patient was given Lasix 40 mg IV x 1 earlier this morning. Troponin negative EKG shows no acute ST-T changes - Follow echocardiogram to assess heart function #Lactic acidosis #High anion gap metabolic acidosis, resolved Patient had lactic acidosis, lactate 9 on presentation with high anion gap metabolic acidosis, repeat labs showed resolution of the gap. Lactate downtrending, possible type B component secondary to malignancy/liver dysfunction - Follow labs in a.m. #Transaminitis, hyperbilirubinemia #Suspicion of liver cirrhosis #Thrombocytopenia, Elevated INR Patient's imaging finding reflective of cirrhosis, thrombocytopenia elevated INR noted on presentation, significant transaminitis. Ammonia levels within normal limits. Abdominal ultrasound negative for cholelithiasis and cholecystitis. - Follow liver panel in a.m. - Neurochecks every 4 hours #Normocytic normochromic anemia #Iron deficiency Patient presented with hemoglobin 13.4, iron levels obtained 46, ferritin within normal limits iron saturation 16% TIBC within normal limits - Will consider discharging on oral iron #Schizophrenia Reports that he was diagnosed with schizophrenia, not following a psychiatrist not on any medications -Will avoid any antipsychotics due to underlying illness for now. #Chronic active smoker, greater than 40 pack years - Smoking cessation counseling/education - Daily nicotine patch DVT prophylaxis: Heparin GTT GI prophylaxis: IV Protonix Diet: Cardiac diet, fluid restriction 1500 cc Lines: Peripheral IV Code status: Full code Case discussed with Attending Physician Dr. Meri Tinsley MD Internal Medicine PGY-2 Disclaimer: This note was dictated by speech recognition. Minor errors in yardage control operator forming may be present due to voice recognition software. Attending Provider Attestation/Addendum IMeri DO, attest that I was physically present for the [place] portions of the service and evaluated the patient with the resident and I reviewed and discussed the case with the resident and agree with the resident's findings and plans of care as documented above Patient is a 64-year-old male with past medical history of schizophrenia, COPD, chronic tobacco use who presented to the ED due to worsening shortness of breath and generalized weakness that began about 2 weeks ago. Patient had been reportedly requiring 8 L of home O2 in the past 2 weeks. Per EMS, patient was noted to desaturate to 86% on 10 L oxygen and subsequently required 12 L oxymask. History was limited as patient's speech is difficult to understand due to mumbling. Patient is also very tangential over the course of the interview. Patient states that he is overall quite healthy, except for his heart. However, he states that he has been too weak to get up. He states that his body feels as though it is going to explode. Patient denies any unintentional weight loss or loss of appetite. Patient endorses smoking cigarettes, marijuana and methamphetamine, last used 2 days ago. Upon evaluation in the ED, patient was in obvious respiratory distress on 12 L oxy mask, with tachycardia of 115, but afebrile. Patient was subsequently placed on BiPAP. He was found to have leukocytosis of 14, hypoxia on ABG with pH of 7.38, CO2 24, PO2 of 57 on 30% FiO2. He is noted to have metabolic acidosis with a bicarb of 15.7 and lactic acidosis of 9. Patient received IV fluids in the ED with improvement of lactic acidosis to 4.7. CT abdomen pelvis was done showing large right pleural effusion and right lung pneumonia, cirrhosis, anasarca, ascites. CT of the chest also showed bilateral pulmonary emboli, large malignant right pleural effusion, 9 x 5.6 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 mediastinum with right hilar lymphadenopathy; multiple metastatic pulmonary nodules, small pericardial effusion. Decision was made to admit patient to telemetry for further workup and medical management of acute hypoxic respiratory failure secondary to pulmonary mass, large right malignant pleural effusion, PE secondary to malignancy. Patient denies any history of GI bleeding or head trauma. Will start patient on anticoagulation due to pulmonary emboli. His bilateral lower extremities are also edematous with some mottling over the knees. However, venous Doppler is negative for DVT. Will order echocardiogram in the presence of fluid overload and history of methamphetamine use. Patient is noted to have clubbing of his digits, making it quite difficult to accurately monitor pulse ox. Patient did not tolerate BiPAP. Thoracentesis was done at bedside for large right pleural effusion during which 750 mL of bloody fluid was removed. Will follow-up with fluid cultures and studies. Patient was made aware of his CT findings regarding malignancy. Will have oncology further evaluate patient. Will also start patient on IV Zosyn due to concern for possible postobstructive pneumonia in addition to community-acquired pneumonia. Will also place on IV azithromycin. Will consult cardiology due to bilateral pulmonary artery emboli. Patient was able to be weaned to 5L/NC following thorascentesis. May need HFNC if patient further desaturates as he is unable to tolerate BiPap.
[2025-05-29 12:56] LABS: LDH (Lactate Dehydrogenase) 353 U/L (120-246)
[2025-05-29 13:02] LABS: Amylase,Pleural Fluid 25 IU/L; Glucose,Pleural Fluid 96 mg/dL; LDH,Pleural Fluid 304 IU/L; Protein Total,Pleural Fluid 3.5 g/dL
[2025-05-29 13:08] LABS: Ferritin 192 ng/mL (10.5-307.3); Iron 46 mcg/dL (65-175); Percent Iron Saturation 16 % (20-55); Total Iron Binding Capacity 282 mcg/dL (250-425); Unsaturated Iron Binding 236 (225-295)
[2025-05-29 13:15] LABS: Folate > 24.00 ng/mL (>5.38); Vitamin B12 > 2000 pg/mL (211-911)
[2025-05-29 13:17] LABS: Lactate (Lactic Acid) 4.7 mMol/L (0.4-2.0)
[2025-05-29] MEDS: IPRATROPIUM RT 0.5 MG/ 2.5 ML NEBU INH ×2 (13:31→19:36)
[2025-05-29] MEDS: LEVALBUTEROL RT 1.25 MG/0.5 ML NEBU INH ×2 (13:31→19:36)
[2025-05-29 13:35] LABS: Albumin, Serum 3.3 gm/dL (3.4-4.8); Anion Gap 15 (7-16); BUN/Creatinine Ratio 19 Ratio (12-20); Blood Urea Nitrogen 21 mg/dL (9-23); Calcium 8.5 mg/dL (8.3-10.6); Calcium (Corrected) 9.1 mg/dL (8.5-10.1); Carbon Dioxide 20.1 mMol/L (20.0-31.0); Chloride 107 mMol/L (98-107); Creatinine (Component) 1.1 mg/dL (0.6-1.3); Estimated Creatinine Clearance 76.4 mL/min (>60); Glucose 147 mg/dL (74-106); Osmolality,Calculated 289 (275-295); Phosphorous 3.9 mg/dL (2.4-5.1); Potassium 4.0 mMol/L (3.4-5.1); Sodium 142 mMol/L (136-145); eGFR > 60 See Note
[2025-05-29 13:40] LABS: Path Review Blood Smear Sent to Pathologist
[2025-05-29] MEDS: Heparin/D5w 25K 250 ML Ivpb 25,000 UNIT/250 ML BAG 14.696 UNIT IV (14:34)
[2025-05-29] MEDS: NICOTINE PATCH 21 MG/24 HR PATCH.TD24 TOP (14:35)
[2025-05-29] MEDS: HEPARIN SOD INJ 5000 UNIT/ML VIAL 6550 UNIT IV (14:35)
--- NOTE | 2025-05-29 15:01 | PD.RESPROC ---
PROCEDURES: Procedure Date / Time 05/29/25 1105 Procedural Time Out Time out performed: Yes Thoracentesis Indication(s): symptomatic Pleural Effusion and other (Diagnostic) Informed consent obtained from: patient Time out done, and the following verified: correct patient, side and site, procedure, patient position and implants and/or equipment Ultrasound used: Yes Procedure location: rt. post pleural space Amount pleural fluid removed (ml): 750 EBL(ml): 0 Procedure comment: The procedure was performed under sterile conditions, with appropriate personal protective equipment, including masks and sterile gloves, worn throughout. The patient underwent a right-sided thoracentesis for diagnostic evaluation and symptomatic management of pleural effusion, which was initially assessed with ultrasound. After obtaining informed consent, the patient was positioned upright at the edge of the bed, and 10cc of lidocaine was administered as local anesthesia along the mid-axillary right chest. A needle was then inserted under sterile technique, and approximately 750cc of serosanguinous pleural fluid was aspirated. The fluid was sent for analysis and cytology. The procedure was well-tolerated without complications such as pneumothorax or bleeding. The puncture site was dressed, and the patient was monitored for 30 minutes. A post-procedure chest X-ray was obtained to rule out pneumothorax. Procedure performed under the direct supervision of welder/installer Dr. Marissa Ballesteros MD Internal Medicine Resident PGY 2
--- NOTE | 2025-05-29 15:22 | PC.RT ---
sputum sample collected in er and sent to lab.
--- NOTE | 2025-05-29 16:05 | ESCONSULT_ITS ---
<Statement entered by Kofi Diaz MD - 06/01/25 15:15> I personally examined the patient evaluated the patient with resident physician PGY [address] Jericho Raza reviewed the consultation and examined the patient agree with the treatment plan recommendation as documented patient clearly has multiple medical problems including malignancy probably metastatic carcinoma malignant pleural effusion there may be pericardial effusion as well echo will be repeated patient also has pulmonary emboli treated with heparin. I personally examined the patient evaluated the patient and discussed treatment plan recommendations will review cardiac echo upon completion of HPI Data of Consult Requesting Physician: Iwona Ballesteros MD Admitting Provider: Meri Shetty DO Attending Provider: Iwona Ballesteros MD Primary Care Provider: BC Caraballo Consult Narrative Reason for consult: New-onset pulmonary emboli History of present illness: Patient is a 64 yo M with PMH of schizophrenia, COPD, lung mass who presented to hospital for 2 weeks of discomfort. Patient is a poor historian; per brother, is schizophrenic but does not take prescribed medications. Patient says he felt short of breath for last 2 weeks. Per brother, patient has 40-year smoking history; patient endorses recent EtOH use. Tox screen positive for opiates, marijuana, and methamphetamine. Cardiology consulted for bilateral pulmonary emboli. cc:: cc: Iwona Ballesteros MD Review of Systems Review of Systems Narrative Review of Systems: General: Denies fevers or chills HEENT: Denies congestion or sore throat Heart: Denies chest pain or palpitations Lungs: Endorses shortness of breath for 2 weeks Abdomen: Denies diarrhea, nausea or vomiting, constipation, BRBPR, melena Genitourinary: Denies frequency, urgency, dysuria, hematuria Musculoskeletal: Denies joint pain, denies muscular pain Neurology: Denies numbness, tingling ROS otherwise negative except what is mentioned above. Exam Vital Signs Temp Pulse Resp BP Pulse Ox O2 Del Method O2 Flow Rate 98.0 F 87 16 105/83 96 Nasal Cannula 5 05/29/25 13:54 05/29/25 15:06 05/29/25 15:06 05/29/25 13:54 05/29/25 15:06 05/29/25 13:54 05/29/25 15:06 FiO2 40 05/29/25 10:22 Narrative Exam General: A/O x1-2, no acute distress; rambling, but redirectable Eyes: PERRL, EOMI. Anicteric, vision grossly intact. Ears: No ear pain, no ear discharge, Hearing grossly intact. Nose: No nasal discharge. Mouth/Throat: Moist mucous membranes, no redness, no lesions. Neck: Neck supple, non-tender, no cervical lymphadenopathy. Lungs: Clear PHIILP to auscultation and percussion, No accessory muscle use. Cardio: Normal S1/S2, regular rhythm, no murmurs, no JVD or carotid bruits. Abdomen: Soft, non-tender, no palpable masses, peristalsis present, no guarding or rebound. Extremities: Symmetrical, no significant deformities, 2+ pitting edema bilateral lower extremities to osborne, non-tender, peripheral pulses present. Skin: No rashes, no lesions, warm to touch. Neuro: No focal neurological deficits. Psych: Cooperative, appropriate mood and effect. Results Labs 05/29/25 05:25 05/29/25 12:13 Labs: Short CBC 05/29/25 Range/Units 05:25 WBC 14.0 H (3.8-10.6) Thou/mm3 Hgb 13.4 L (13.5-16.0) g/dL Hct 46.8 (41.0-53.0) % Plt Count 129 L (140-440) Thou/mm3 BMP 05/29/25 05/29/25 05:25 12:13 Sodium 142 142 Potassium 4.5 4.0 D Chloride 108 H 107 Carbon Dioxide 15.7 L 20.1 BUN 24 H 21 Creatinine 1.2 1.1 Glucose 130 H 147 H Calcium 9.0 8.5 Cardiac Enzymes 05/29/25 Range/Units 05:25 Total Creatine Kinase 212 H (34-171) U/L Troponin I 0.037 (0.0-0.045) ng/mL Liver Function 05/29/25 05/29/25 Range/Units 05:25 12:13 Total Bilirubin 1.8 H (0.3-1.2) mg/dL Direct Bilirubin 1.0 H (0.0-0.3) mg/dL AST 436 H (0-34) U/L ALT 398 H (10-49) U/L Alkaline Phosphatase 147 H (46-116) U/L Albumin 3.4 3.3 L (3.4-4.8) gm/dL Urine 05/29/25 Range/Units 06:50 Urine Color Yellow (Lt Yel-Yel) Urine Clarity Clear (Clear/Hazy) Urine pH 6.0 (5.0-7.0) Ur Specific [place] 1.022 (1.001-1.035) Urine Protein 1+ A (Neg - Trace) Urine Glucose (UA) Negative (Negative) ABG Interpretation ABG results: 05/29/25 05:33 ABG pH 7.38 ABG pCO2 24 L ABG pO2 57 L* ABG HCO3 14 L ABG O2 Saturation 87 L ABG Base Excess -9 L Quality Measures Quality Measures none Medications Home Medications and Allergies Home Medications ?Medication ?Instructions ?Recorded ?Confirmed ?Type No Known Home Medications 03/02/1805/04 History Allergies Allergy/AdvReac Type Severity Reaction Status Date / Time No Known Allergies Allergy Unverified 03/06/18 10:09 Visit Medications Acetaminophen (Acetaminophen 325 Mg Tablet) 325 mg PO Q6H PRN PRN Reason: Fever >101.5, Pain 1-3 Stop: 06/28/25 12:06 Albuterol/Ipratropium (Albuterol/Ipratropium (Duoneb) Rt Becky 3 Ml Nebu) 3 ml INH Q2HR PRN PRN Reason: SHORTNESS OF BREATH OR WHEEZE Stop: 06/28/25 12:06 Azithromycin 500 mg/ Sodium (Chloride) 250 mls @ 250 mls/hr IV QDAY [facility] Stop: 06/01/25 08:55 Last Infusion: 05/29/25 12:51 Dose: Infused Heparin Sodium/Dextrose (Heparin In D5w Ivpb) 25,000 unit in 250 mls @ 14.696 mls/hr IV .Q17H1M [facility]; Protocol Stop: 06/12/25 12:14 Last Admin: 05/29/25 14:34 Dose: 18 units/kg/hr, 14.696 mls/hr Piperacillin/Tazobactam/Dextrose (Zosyn) 3.375 gm in 50 mls @ 12.5 mls/hr IV Q8HR [facility]; Protocol Stop: 06/05/25 13:59 Last Admin: 05/29/25 14:34 Dose: 12.5 mls/hr Ipratropium [place] (Ipratropium Rt 0.5 Mg/ 2.5 Ml Nebu) 0.5 mg INH Q6HRRT [facility] Stop: 06/28/25 12:59 Last Admin: 05/29/25 13:31 Dose: 0.5 mg Levalbuterol HCl (Levalbuterol Rt 1.25 Mg/0.5 Ml Nebu) 1.25 mg INH Q6HRRT [facility] Stop: 06/28/25 12:59 Last Admin: 05/29/25 13:31 Dose: 1.25 mg Nicotine (Nicotine Patch 21 Mg/24 Hr Patch.Td24) 21 mg TOP QDAY [facility] Stop: 06/28/25 12:14 Last Admin: 05/29/25 14:35 Dose: 21 mg Ondansetron HCl (Ondansetron Inj 2 Mg/Ml Inj 2 Ml) 4 mg IVP Q6H PRN; Protocol PRN Reason: NAUSEA OR VOMITING Stop: 06/28/25 12:06 Pantoprazole Sodium (Pantoprazole Inj 40 Mg Vial) 40 mg IVP QDAY [facility] Stop: 06/28/25 12:14 Last Admin: 05/29/25 14:56 Dose: Not Given Sodium Chloride (Sodium Chloride Rt Becky 0.9% 3 Ml Nebu) 3 ml INH PRN PRN PRN Reason: SOLN Stop: 06/28/25 06:33 Last Admin: 05/29/25 06:52 Dose: 3 ml Sodium Chloride (Sodium Chloride Rt Becky 0.9% 3 Ml Nebu) 3 ml INH PRN PRN PRN Reason: SOLN Stop: 06/28/25 12:06 Discontinued Medications Albuterol (Albuterol Rt 2.5 Mg/0.5 Ml Nebu) 5 mg INH X1 ONE Stop: 05/29/25 06:35 Last Admin: 05/29/25 06:52 Dose: 5 mg Enoxaparin Sodium (Enoxaparin Sod Inj 80 Mg/0.8 Ml Syringe) 80 mg SC X1 ONE Stop: 05/29/25 09:26 Last Admin: 05/29/25 10:48 Dose: Not Given Furosemide (Furosemide Inj 10 Mg/Ml 4ml Vial) 40 mg IVP X1 ONE Stop: 05/29/25 05:21 Last Admin: 05/29/25 05:31 Dose: 40 mg Heparin Sodium (Porcine) (Heparin Sod Inj 5000 Unit/Ml Vial) 6,550 unit 80 unit/kg (6550 unit) IV X1 ONE; Protocol Stop: 05/29/25 12:15 Last Admin: 05/29/25 14:35 Dose: 6,550 unit Sodium Chloride (Ns) 2,328 mls @ 2,328 mls/hr 30 ml/kg infuse over 60 min (2328 ml) IV .Q1H ONE Stop: 05/29/25 07:34 Last Admin: 05/29/25 10:47 Dose: Not Given Piperacillin/Tazobactam/Dextrose (Zosyn) 3.375 gm in 50 mls @ 100 mls/hr IV X1 ONE Stop: 05/29/25 07:04 Last Infusion: 05/29/25 07:17 Dose: Infused Ceftriaxone Sodium 2 gm/ (Sodium Chloride) 50 mls @ 100 mls/hr IV X1 ONE Stop: 05/29/25 09:24 Last Infusion: 05/29/25 11:29 Dose: Infused Ceftriaxone Sodium/Dextrose (Rocephin/D5w 1gm Iv Premix) 1 gm in 50 mls @ 100 mls/hr IV QDAY [facility]OT[facility] Stop: 06/06/25 08:59 Methylprednisolone Sodium Succinate (Methylprednisolone Sod Succ 62.5 Mg/Ml 2ml Vial) 125 mg IVP X1 ONE Stop: 05/29/25 06:35 Last Admin: 05/29/25 06:47 Dose: 125 mg Morphine Sulfate (Morphine Sulf Inj 4 Mg/Ml Vial) 2 mg IV X1 ONE Stop: 05/29/25 05:21 Last Admin: 05/29/25 05:31 Dose: 2 mg Nitroglycerin (Nitroglycerin Oint 2% 1 Inch Packet) 1 inch TOP X1 ONE Stop: 05/29/25 05:21 Last Admin: 05/29/25 05:30 Dose: 1 inch Sodium Chloride (Sodium Chloride Rt 10% 15 Ml Nebu) 5 ml INH X1 ONE Stop: 05/29/25 12:21 Assessment & Plan Plan Patient is a 64 yo M with PMH of schizophrenia, COPD, lung mass who presented to hospital for 2 weeks of discomfort. #Mild Bilateral pulmonary artery emboli Multiple bilateral pulmonary artery emboli seen on CTA today. Emboli likely to hypercoagulability caused by maligancy. Plan: Heparin protocol started Echo to check for pericardial effusion #Acute on chronic hypoxic respiratory failure #Right lung pleural effusion, suspicion of malignant pleural effusion #Community-acquired pneumonia, left upper lobe, right lower lobe #Right upper lobe mass Per primary team This case was discussed with my attending physician, Dr. Diaz. Dedrick Raza, PGY1
[2025-05-29 16:15] LABS: Reflex Lactate? Y
--- NOTE | 2025-05-29 16:29 | EVENTNT_ITS ---
Documentation for date of: 05/29/25 Event Note Event Note: Rapid response called for the patient around 4 PM. Because of rapid response: Decreased SpO2 On assessment at bedside patient SpO2 97, currently on 15 L. Patient was transition from BiPAP to 6 L nasal cannula in the ER, patient has poor pulse ox waveform, we will change the pulse ox. Patient's goal SpO2 is 88 and above considering he does have history of COPD. Bilateral wheezing appreciated, will give breathing treatment x 1. Patient has no increased work of breathing, reports that he is anxious. Does have history of schizophrenia not on any home medication. Case was discussed with respiratory therapist as well. Will continue oxy mask, supplemental oxygen was decreased to 7 L, SpO2 greater than 92. Will continue with oxy mask for now, trial BiPAP at bedtime as needed, RT was informed. Brother at bedside reported that patient was using 8 L supplemental oxygen at home and breathing treatments for the last 2 weeks. Case discussed with Attending Physician Dr. Meri Tinsley MD Internal Medicine PGY-2 Disclaimer: This note was dictated by speech recognition. Minor errors in ecclesiastical worker may be present due to voice recognition software.
[2025-05-29 16:54] LABS: Lactic Acid, 3 HR 4.0 mMol/L (0.4-2.0)
[2025-05-29 21:17] LABS: Partial Thromboplastin Time 93.9 Seconds (22.0-36.0)
[2025-05-30] VITALS (15 sets, daily range): BP systolic 97–125; BP diastolic 72–85; PULSE 92–109; RESP 12–119; TEMP 36.1–36.6; O2SAT 89–99
[2025-05-30] MEDS: LEVALBUTEROL RT 1.25 MG/0.5 ML NEBU INH ×4 (01:11→19:00)
[2025-05-30] MEDS: IPRATROPIUM RT 0.5 MG/ 2.5 ML NEBU INH ×4 (01:11→19:00)
--- NOTE | 2025-05-30 02:45 | PC.RT ---
spo2 86%, went to assess pt no distress noted flow increased to 6L hnc sats improved to 93%
[2025-05-30] MEDS: PIPER/TAZO 3.375 GM PREMIX 3.375 GM/50 ML BAG IV ×3 (05:19→21:21)
[2025-05-30 05:45] LABS: Basophils # (Auto) 0.0 Thou/mm3 (0.0-0.2); Basophils % (Auto) 0 % (0-2.5); Eosinophils # (Auto) 0.0 Thou/mm3 (0.0-0.5); Eosinophils % (Auto) 0 % (0-10); Hematocrit 41.2 % (41.0-53.0); Hemoglobin 12.5 g/dL (13.5-16.0); Immature Granulocytes Auto 0.38 Thou/mm3 (0.00-0.00); Lymphocytes # (Auto) 0.7 Thou/mm3 (1.0-4.8); Lymphocytes % (Auto) 5 % (10-50); Mean Corpuscular HGB Conc 30.3 g/dl (31.0-37.0); Mean Corpuscular Hemoglobin 26.2 pg (25.0-35.0); Mean Corpuscular Volume 86 fL (80-100); Monocytes # (Auto) 0.6 Thou/mm3 (0.0-0.8); Monocytes % (Auto) 4 % (0-12); Neutrophils # (Auto) 13.0 Thou/mm3 (1.8-7.7); Neutrophils % (Auto) 88 % (37-80); Nucleated Red Blood Cell # 0.14 Thou/mm3 (0.00-0.00); Nucleated Red Blood Cell % 1 /100 WBC (0); Platelet Count 83 Thou/mm3 (140-440); RDW Standard Deviation 61.0 fL (35.1-43.9); Red Blood Count 4.77 Miln/mm3 (4.50-5.90); White Blood Count 14.7 Thou/mm3 (3.8-10.6)
[2025-05-30 06:04] LABS: Glucose Estimated Average 117 mg/dL (80-131); Hemoglobin A1C 5.7 % Hgb (4.8-6.0)
[2025-05-30 06:06] LABS: Partial Thromboplastin Time 51.8 Seconds (22.0-36.0)
[2025-05-30 06:11] LABS: Alanine Aminotransferase 274 U/L (10-49); Albumin, Serum 2.9 gm/dL (3.4-4.8); Albumin/Globulin Ratio 0.8 (1.2-2.2); Alkaline Phosphatase 119 U/L (46-116); Anion Gap 14 (7-16); Aspartate Amino Transferase 211 U/L (0-34); BUN/Creatinine Ratio 21 Ratio (12-20); Bilirubin,Total 0.9 mg/dL (0.3-1.2); Blood Urea Nitrogen 21 mg/dL (9-23); Calcium 8.3 mg/dL (8.3-10.6); Calcium (Corrected) 9.2 mg/dL (8.5-10.1); Carbon Dioxide 19.4 mMol/L (20.0-31.0); Cardiac Risk Estimate 6.5 RATIO (4.0-6.7); Chloride 108 mMol/L (98-107); Cholesterol 98 mg/dL (132-200); Creatinine (Component) 1.0 mg/dL (0.6-1.3); Estimated Creatinine Clearance 84.1 mL/min (>60); Globulin 3.6 gm/dL (2.3-3.5); Glucose 147 mg/dL (74-106); HDL Cholesterol 15 mg/dL (40-60); LDL Cholesterol,Calculated 65 mg/dL (0-130); Magnesium 2.1 mg/dL (1.6-2.6); Osmolality,Calculated 287 (275-295); Phosphorous 3.0 mg/dL (2.4-5.1); Potassium 3.7 mMol/L (3.4-5.1); Sodium 141 mMol/L (136-145); Total Protein 6.5 gm/dL (5.7-8.2); Triglycerides 89 mg/dL (30-150); eGFR > 60 See Note
--- NOTE | 2025-05-30 07:35 | PC.NURSE ---
Spoke to Resident Diaz. he will lokk in the patients chart to see if pt can have anxiety med
--- NOTE | 2025-05-30 08:12 | ESPR_ITS ---
<Statement entered by Kofi Diaz MD - 06/01/25 15:18> I personally examined evaluate the patient who has multiple medical problems clinically quite stable now cardiac echo reviewed showed mild to moderate pericardial effusion but no tamponade. The patient is on BiPAP for hypoxic respiratory failure secondary to combination of the factors and the patient's prognosis extremely poor because of the metastatic carcinoma and malignant effusions as well as severe respiratory failure and multiorgan failure. Evaluated patient with resident physician PGY 1Dr. Jericho Raza agree with treatment plan recommendation as documented will sign off the case for now and we will see the patient if necessary Documentation for date of: 05/30/25 Subjective Subjective Interval history: Patient seen and examined at bedside; no acute events overnight. Patient still A&Ox1-2. Exam Vital Signs Temp Pulse Resp BP Pulse Ox O2 Del Method O2 Flow Rate 97.6 F 96 16 97/81 97 Nasal Cannula 4 05/30/25 04:00 05/30/25 07:06 05/30/25 07:06 05/30/25 04:00 05/30/25 06:54 05/30/25 04:00 05/30/25 06:54 FiO2 40 05/29/25 10:22 Narrative Exam General: A/O x1-2, no acute distress; rambling, but redirectable Eyes: PERRL, EOMI. Anicteric, vision grossly intact. Ears: No ear pain, no ear discharge, Hearing grossly intact. Nose: No nasal discharge. Mouth/Throat: Moist mucous membranes, no redness, no lesions. Neck: Neck supple, non-tender, no cervical lymphadenopathy. Lungs: Clear PHILIP to auscultation and percussion, No accessory muscle use. Cardio: Normal S1/S2, regular rhythm, no murmurs, no JVD or carotid bruits. Abdomen: Soft, non-tender, no palpable masses, peristalsis present, no guarding or rebound. Extremities: Symmetrical, no significant deformities, 2+ pitting edema bilateral lower extremities to osborne, non-tender, peripheral pulses present. Skin: No rashes, no lesions, warm to touch. Neuro: No focal neurological deficits. Psych: Cooperative, rambling, but redirectable Objective Labs 05/30/25 04:13 05/30/25 04:13 Labs: Laboratory Results - last 24 hr 05/29/25 05/29/25 05/29/25 05:25 08:50 10:43 WBC RBC Hgb Hct MCV MCH MCHC RDW Std Deviation Plt Count Neut % (Auto) Lymph % (Auto) [place] % (Auto) Eos % (Auto) Baso % (Auto) Neut # (Auto) Lymph # (Auto) [place] # (Auto) Eos # (Auto) Baso # (Auto) Immature Gran # (Auto) Absolute Nucleated RBC Immature Gran % Nucleated RBC % Smear Path Review Sent to Pathologist APTT Sodium Potassium Chloride Carbon Dioxide Anion Gap BUN Creatinine Estim Creat Clear Calc eGFR BUN/Creatinine Ratio Glucose Estimated Ave Glu mg/dL Hemoglobin A1c Calculated Osmolality Lactic Acid 4.7 H* Calcium Corrected Calcium Phosphorus Magnesium Iron TIBC Iron Saturation Unsat Iron Binding Ferritin Total Bilirubin AST ALT Alkaline Phosphatase Lactate Dehydrogenase 353 H Total Protein Albumin Globulin Albumin/Globulin Ratio Triglycerides Cholesterol LDL Cholesterol, Calc HDL Cholesterol Cholesterol/HDL Ratio Vitamin B12 Folate Pleural Color Pleural Appearance Pleural WBC Pleural RBC Pleural Polynuclear WBC Pleural Mononuclear WBC Pleural Total Protein Pleural LDH Pleural Glucose Pleural Amylase SARS-CoV-2 Ag (Rapid) Cancelled 05/29/25 05/29/25 05/29/25 12:02 12:13 12:33 WBC RBC Hgb Hct MCV MCH MCHC RDW Std Deviation Plt Count Neut % (Auto) Lymph % (Auto) [place] % (Auto) Eos % (Auto) Baso % (Auto) Neut # (Auto) Lymph # (Auto) [place] # (Auto) Eos # (Auto) Baso # (Auto) Immature Gran # (Auto) Absolute Nucleated RBC Immature Gran % Nucleated RBC % Smear Path Review Cancelled APTT Sodium 142 Potassium 4.0 D Chloride 107 Carbon Dioxide 20.1 Anion Gap 15 BUN 21 Creatinine 1.1 Estim Creat Clear Calc 76.4 eGFR > 60 BUN/Creatinine Ratio [address] Glu mg/dL Hemoglobin A1c Calculated Osmolality 289 Lactic Acid Calcium 8.5 Corrected Calcium 9.1 Phosphorus 3.9 Magnesium Iron 46 L TIBC 282 Iron Saturation 16 L Unsat Iron Binding 236 Ferritin 192 Total Bilirubin AST ALT Alkaline Phosphatase Lactate Dehydrogenase Total Protein Albumin 3.3 L Globulin Albumin/Globulin Ratio Triglycerides Cholesterol LDL Cholesterol, Calc HDL Cholesterol Cholesterol/HDL Ratio Vitamin B12 > 2000 H Folate > 24.00 Pleural Color Straw Pleural Appearance Cloudy Pleural WBC 03459 Pleural RBC 08691 Pleural Polynuclear WBC 77 Pleural Mononuclear WBC 23 Pleural Total Protein 3.5 Pleural LDH 304 Pleural Glucose 96 Pleural Amylase 25 SARS-CoV-2 Ag (Rapid) 05/29/25 05/29/25 05/29/25 13:12 16:39 20:27 WBC RBC Hgb Hct MCV MCH MCHC RDW Std Deviation Plt Count Neut % (Auto) Lymph % (Auto) [place] % (Auto) Eos % (Auto) Baso % (Auto) Neut # (Auto) Lymph # (Auto) [place] # (Auto) Eos # (Auto) Baso # (Auto) Immature Gran # (Auto) Absolute Nucleated RBC Immature Gran % Nucleated RBC % Smear Path Review APTT 93.9 H D Sodium Potassium Chloride Carbon Dioxide Anion Gap BUN Creatinine Estim Creat Clear Calc eGFR BUN/Creatinine Ratio Glucose Estimated Ave Glu mg/dL Hemoglobin A1c Calculated Osmolality Lactic Acid 4.7 H* 4.0 H Calcium Corrected Calcium Phosphorus Magnesium Iron TIBC Iron Saturation Unsat Iron Binding Ferritin Total Bilirubin AST ALT Alkaline Phosphatase Lactate Dehydrogenase Total Protein Albumin Globulin Albumin/Globulin Ratio Triglycerides Cholesterol LDL Cholesterol, Calc HDL Cholesterol Cholesterol/HDL Ratio Vitamin B12 Folate Pleural Color Pleural Appearance Pleural WBC Pleural RBC Pleural Polynuclear WBC Pleural Mononuclear WBC Pleural Total Protein Pleural LDH Pleural Glucose Pleural Amylase SARS-CoV-2 Ag (Rapid) 05/30/25 04:13 WBC 14.7 H RBC 4.77 Hgb 12.5 L Hct 41.2 MCV 86 MCH 26.2 MCHC 30.3 L RDW Std Deviation 61.0 H Plt Count 83 L D Neut % (Auto) 88 H Lymph % (Auto) 5 L [place] % (Auto) 4 Eos % (Auto) 0 Baso % (Auto) 0 Neut # (Auto) 13.0 H Lymph # (Auto) 0.7 L [place] # (Auto) 0.6 Eos # (Auto) 0.0 Baso # (Auto) 0.0 Immature Gran # (Auto) 0.38 H Absolute Nucleated RBC 0.14 H Immature Gran % 3 H Nucleated RBC % 1 H Smear Path Review APTT 51.8 H D Sodium 141 Potassium 3.7 Chloride 108 H Carbon Dioxide 19.4 L Anion Gap 14 BUN 21 Creatinine 1.0 Estim Creat Clear Calc 84.1 eGFR > 60 BUN/Creatinine Ratio 21 H Glucose [address] Glu mg/dL 117 Hemoglobin A1c 5.7 Calculated Osmolality 287 Lactic Acid Calcium 8.3 Corrected Calcium 9.2 Phosphorus 3.0 Magnesium 2.1 Iron TIBC Iron Saturation Unsat Iron Binding Ferritin Total Bilirubin 0.9 D AST 211 H ALT 274 H Alkaline Phosphatase 119 H D Lactate Dehydrogenase Total Protein 6.5 Albumin 2.9 L Globulin 3.6 H Albumin/Globulin Ratio 0.8 L Triglycerides 89 Cholesterol 98 L LDL Cholesterol, Calc 65 HDL Cholesterol 15 L Cholesterol/HDL Ratio 6.5 Vitamin B12 Folate Pleural Color Pleural Appearance Pleural WBC Pleural RBC Pleural Polynuclear WBC Pleural Mononuclear WBC Pleural Total Protein Pleural LDH Pleural Glucose Pleural Amylase SARS-CoV-2 Ag (Rapid) ABG Interpretation ABG results: 05/29/25 05:33 ABG pH 7.38 ABG pCO2 24 L ABG pO2 57 L* ABG HCO3 14 L ABG O2 Saturation 87 L ABG Base Excess -9 L Quality Measures Quality Measures VTE prophylaxis Assessment & Plan Assessment Current Active Medications: Generic Name Dose Route Start Last Admin Trade Name Freq PRN Reason Stop Dose Admin Acetaminophen 325 mg 05/29/25 12:07 Acetaminophen 325 Mg Tablet PO 06/28/25 12:06 Q6H PRN Fever >101.5, Pain 1-3 Albuterol/Ipratropium 3 ml 05/29/25 12:07 Albuterol/Ipratropium (Duoneb) Rt Becky 3 Ml Nebu INH 06/28/25 12:06 Q2HR PRN SHORTNESS OF BREATH OR WHEEZE Azithromycin 500 mg/ Sodium 250 mls @ 250 mls/hr 05/29/25 08:56 05/29/25 12:51 Chloride IV 06/01/25 08:55 Infused QDAY [facility] Infusion Heparin Sodium/Dextrose 25,000 unit in 250 mls @ 14.696 mls/hr 05/29/25 12:15 05/30/25 06:13 Heparin In D5w Ivpb IV 06/12/25 12:14 16 units/kg/hr .Q17H1M [facility] 13.064 mls/hr Protocol Titration 18 UNITS/KG/HR Piperacillin/Tazobactam/Dextrose 3.375 gm in 50 mls @ 12.5 mls/hr 05/29/25 14:00 05/30/25 05:19 Zosyn IV 06/05/25 13:59 12.5 mls/hr Q8HR [facility]OT[facility] Administration Protocol Ipratropium [place] 0.5 mg 05/29/25 13:00 05/30/25 06:52 Ipratropium Rt 0.5 Mg/ 2.5 Ml Nebu INH 06/28/25 12:59 0.5 mg Q6HRRT [facility] Administration Levalbuterol HCl 1.25 mg 05/29/25 13:00 05/30/25 06:52 Levalbuterol Rt 1.25 Mg/0.5 Ml Nebu INH 06/28/25 12:59 1.25 mg Q6HRRT [facility] Administration Nicotine 21 mg 05/29/25 12:15 05/29/25 14:35 Nicotine Patch 21 Mg/24 Hr Patch.Td24 TOP 06/28/25 12:14 21 mg QDAY [facility] Administration Ondansetron HCl 4 mg 05/29/25 12:07 Ondansetron Inj 2 Mg/Ml Inj 2 Ml IVP 06/28/25 12:06 Q6H PRN NAUSEA OR VOMITING Protocol Pantoprazole Sodium 40 mg 05/29/25 12:15 05/29/25 14:56 Pantoprazole Inj 40 Mg Vial IVP 06/28/25 12:14 Not Given QDAY [facility]OT[facility] Pharmacy Consult 1 each 05/30/25 09:00 Vancomycin Pharmacy To Dose 1 Each Each IV 06/29/25 08:59 QDAY PRN PROTOCOL Sodium Chloride 3 ml 05/29/25 06:34 05/29/25 06:52 Sodium Chloride Rt Becky 0.9% 3 Ml Nebu INH 06/28/25 06:33 3 ml PRN PRN Administration SOLN Sodium Chloride 3 ml 05/29/25 12:07 Sodium Chloride Rt Becky 0.9% 3 Ml Nebu INH 06/28/25 12:06 PRN PRN SOLN Plan Patient is a 64 yo M with PMH of schizophrenia, COPD, lung mass who presented to hospital for 2 weeks of discomfort. #Mild Bilateral pulmonary artery emboli Multiple bilateral pulmonary artery emboli seen on CTA today. Emboli likely to hypercoagulability caused by maligancy. Plan: Heparin protocol started Echo to check for pericardial effusion #Acute on chronic hypoxic respiratory failure #Right lung pleural effusion, suspicion of malignant pleural effusion #Community-acquired pneumonia, left upper lobe, right lower lobe #Right upper lobe mass Per primary team This case was discussed with my attending physician, Dr. Diaz. Dedrick Raza, PGY1
--- NOTE | 2025-05-30 08:45 | PC.SS ---
Follow up note: Has cancer. PT pending. On IV antibiotic. Physician residents are recommending SNF placement.
[2025-05-30] MEDS: Heparin/D5w 25K 250 ML Ivpb 25,000 UNIT/250 ML BAG 13.064 UNIT IV (09:20)
[2025-05-30] MEDS: AZITHROMYCIN INJ 500 MG in SODIUM CHLORIDE 0.9% 250 ML 250 ML 250 MG IV (09:22)
[2025-05-30] MEDS: NICOTINE PATCH 21 MG/24 HR PATCH.TD24 TOP (09:23)
[2025-05-30 09:38] LABS: Lactate (Lactic Acid) 3.3 mMol/L (0.4-2.0)
[2025-05-30] MEDS: VANCOMYCIN/WATER 1250 MG IVPB 250 ML 120 MG IV ×2 (11:05→21:21)
[2025-05-30] MEDS: ALBUMIN HUMAN-KJDA 25% IVPB 25 GM/100 ML BTL IV (11:05)
--- NOTE | 2025-05-30 11:50 | PC.SS ---
SS attempted to meet with pt to complete initial assessment but pt had difficulty breathing and was not able to engage in conversation.
[2025-05-30 12:25] LABS: Partial Thromboplastin Time 45.3 Seconds (22.0-36.0)
[2025-05-30 12:32] LABS: Reflex Lactate? Y
--- NOTE | 2025-05-30 12:55 | PD.ONCCONS ---
HPI Data of Consult Requesting Physician: Iwona Ballesteros MD Primary Care Provider: BC Caraballo Consult Narrative Reason for consult: Suspected lung malignancy History of present illness: Patient is a 62-year-old gentleman with long history of heavy smoking COPD schizophrenia reportedly also homeless admitted with shortness of breath. CT chest abdomen 05/29/2024 revealed a 9 x 5.6 cm pulmonary mass right upper lobe invading right mediastinum and right hilar lymphadenopathy. There were multiple bilateral pulmonary artery emboli in distal left main pulmonary artery segment. There was also large malignant right pleural effusion. There was also multiple metastatic pulmonary nodules largest in left lower lobe 7 mm. Patient underwent thoracentesis removing 750 cc. Liver nodular in contour cirrhosis pattern along with mild ascites.Pt now referred for oncologic consultation. cc:: cc: Iwona Ballesteros MD Past Medical History Social History SOCIAL: Active smoker greater than 40 pack years alcohol abuse methamphetamine abuse reportedly homeless Past Medical History Comments PMH COMMENT: History of COPD schizophrenia inguinal hernia repair tonsillectomy Meds Home Medications and Allergies Home Medications ?Medication ?Instructions ?Recorded ?Confirmed ?Type No Known Home Medications 03/02/18 05/29/25 History Allergies Allergy/AdvReac Type Severity Reaction Status Date / Time No Known Allergies Allergy Unverified 03/06/18 10:09 Exam Vital Signs Temp Pulse Resp BP Pulse Ox O2 Del Method O2 Flow Rate 96.9 F 98 20 107/78 96 Nasal Cannula 4 05/30/25 08:00 05/30/25 11:10 05/30/25 11:10 05/30/25 08:00 05/30/25 11:10 05/30/25 04:00 05/30/25 06:54 FiO2 40 05/30/25 11:10 Narrative Exam Tired appearing gentleman receiving supplemental O2 Results Labs 05/30/25 04:13 05/30/25 04:13 Labs: Short CBC 05/30/25 Range/Units 04:13 WBC 14.7 H (3.8-10.6) Thou/mm3 Hgb 12.5 L (13.5-16.0) g/dL Hct 41.2 (41.0-53.0) % Plt Count 83 L D (140-440) Thou/mm3 BMP 05/29/25 05/30/25 12:13 04:13 Sodium 142 141 Potassium 4.0 D 3.7 Chloride 107 108 H Carbon Dioxide 20.1 19.4 L BUN 21 21 Creatinine 1.1 1.0 Glucose 147 H 147 H Calcium 8.5 8.3 Liver Function 05/29/25 05/30/25 Range/Units 12:13 04:13 Total Bilirubin 0.9 D (0.3-1.2) mg/dL AST 211 H (0-34) U/L ALT 274 H (10-49) U/L Alkaline Phosphatase 119 H D (46-116) U/L Albumin 3.3 L 2.9 L (3.4-4.8) gm/dL ABG Interpretation ABG results: 05/29/25 05:33 ABG pH 7.38 ABG pCO2 24 L ABG pO2 57 L* ABG HCO3 14 L ABG O2 Saturation 87 L ABG Base Excess -9 L Assessment and Plan Additional Assessment & Plan Additional Plan: 1. Likely lung CA, large right upper lobe mass invading right mediastinum with right hilar adenopathy and metastatic pulmonary nodules 2. Cytology being checked via recent thoracentesis. Lung biopsy will still be helpful, allowing us to learn of actual cell type along with checking for immunotherapy and mutation markers. 3. COPD, pneumonia pulmonary embolism among comorbidties being treated.
--- NOTE | 2025-05-30 13:08 | ESPR_ITS ---
Documentation for date of: 05/30/25 Subjective Subjective Interval history: Patient seen and examined at bedside, had increased work of breathing will start on BiPAP again Will give IV albumin and IV Lasix today, Bicarb 19.4, obtain lactate that was 3.3 follow-up lactate 4.1, will trend lactate 1 time however patient's liver dysfunction is causing type B lactate. Will continue with heparin drip, IV Zosyn and azithromycin Oncology was consulted, appreciate recommendations Continue with breathing treatments Patient has significant anxiety which masks his respiratory distress, was given hydroxyzine earlier today. Will try to wean off of BiPAP later today. Exam Vital Signs Temp Pulse Resp BP Pulse Ox O2 Del Method O2 Flow Rate 96.9 F 98 20 107/78 96 Nasal Cannula 4 05/30/25 08:00 05/30/25 11:10 05/30/25 11:10 05/30/25 08:00 05/30/25 11:10 05/30/25 04:00 05/30/25 06:54 FiO2 40 05/30/25 11:10 Narrative Exam Physical Exam General: Awake and in no acute distress. Conversational and non-toxic appearing. Frail and cachectic. Anxious, pressured speech. HEENT: Normocephalic, atraumatic, mucous membranes moist. On BiPAP Heart: Sinus tachycardia, no murmurs. Lungs: Bilateral wheezing, decreased breath sounds right lower lobe. Abdomen: Soft, nondistended, nontender, positive bowel sounds. ?No guarding or rebound tenderness. Neurologic: Alert and oriented x3, no gross neurological deficit, and patient able to move all 4 extremities. Extremities: 2+ bilateral lower extremity edema, positive mottling bilateral feet Skin: No rash or ecchymoses. Objective Labs 05/31/25 16:37 05/31/25 16:37 Labs: Laboratory Results - last 24 hr 05/29/25 05/29/25 05/29/25 05:25 12:13 12:33 WBC RBC Hgb Hct MCV MCH MCHC RDW Std Deviation Plt Count Neut % (Auto) Lymph % (Auto) [place] % (Auto) Eos % (Auto) Baso % (Auto) Neut # (Auto) Lymph # (Auto) [place] # (Auto) Eos # (Auto) Baso # (Auto) Immature Gran # (Auto) Absolute Nucleated RBC Immature Gran % Nucleated RBC % Smear Path Review Sent to Pathologist Cancelled APTT Sodium 142 Potassium 4.0 D Chloride 107 Carbon Dioxide 20.1 Anion Gap 15 BUN 21 Creatinine 1.1 Estim Creat Clear Calc 76.4 eGFR > 60 BUN/Creatinine Ratio [address] Glu mg/dL Hemoglobin A1c Calculated Osmolality 289 Lactic Acid Calcium 8.5 Corrected Calcium 9.1 Phosphorus 3.9 Magnesium Iron 46 L TIBC 282 Iron Saturation 16 L Unsat Iron Binding 236 Ferritin 192 Total Bilirubin AST ALT Alkaline Phosphatase Total Protein Albumin 3.3 L Globulin Albumin/Globulin Ratio Triglycerides Cholesterol LDL Cholesterol, Calc HDL Cholesterol Cholesterol/HDL Ratio Vitamin B12 > 2000 H Folate > 24.00 05/29/25 05/29/25 05/29/25 13:12 16:39 20:27 WBC RBC Hgb Hct MCV MCH MCHC RDW Std Deviation Plt Count Neut % (Auto) Lymph % (Auto) [place] % (Auto) Eos % (Auto) Baso % (Auto) Neut # (Auto) Lymph # (Auto) [place] # (Auto) Eos # (Auto) Baso # (Auto) Immature Gran # (Auto) Absolute Nucleated RBC Immature Gran % Nucleated RBC % Smear Path Review APTT 93.9 H D Sodium Potassium Chloride Carbon Dioxide Anion Gap BUN Creatinine Estim Creat Clear Calc eGFR BUN/Creatinine Ratio Glucose Estimated Ave Glu mg/dL Hemoglobin A1c Calculated Osmolality Lactic Acid 4.7 H* 4.0 H Calcium Corrected Calcium Phosphorus Magnesium Iron TIBC Iron Saturation Unsat Iron Binding Ferritin Total Bilirubin AST ALT Alkaline Phosphatase Total Protein Albumin Globulin Albumin/Globulin Ratio Triglycerides Cholesterol LDL Cholesterol, Calc HDL Cholesterol Cholesterol/HDL Ratio Vitamin B12 Folate 05/30/25 05/30/25 05/30/25 04:13 09:25 12:00 WBC 14.7 H RBC 4.77 Hgb 12.5 L Hct 41.2 MCV 86 MCH 26.2 MCHC 30.3 L RDW Std Deviation 61.0 H Plt Count 83 L D Neut % (Auto) 88 H Lymph % (Auto) 5 L [place] % (Auto) 4 Eos % (Auto) 0 Baso % (Auto) 0 Neut # (Auto) 13.0 H Lymph # (Auto) 0.7 L [place] # (Auto) 0.6 Eos # (Auto) 0.0 Baso # (Auto) 0.0 Immature Gran # (Auto) 0.38 H Absolute Nucleated RBC 0.14 H Immature Gran % 3 H Nucleated RBC % 1 H Smear Path Review APTT 51.8 H D 45.3 H Sodium 141 Potassium 3.7 Chloride 108 H Carbon Dioxide 19.4 L Anion Gap 14 BUN 21 Creatinine 1.0 Estim Creat Clear Calc 84.1 eGFR > 60 BUN/Creatinine Ratio 21 H Glucose [address] Glu mg/dL 117 Hemoglobin A1c 5.7 Calculated Osmolality 287 Lactic Acid 3.3 H Calcium 8.3 Corrected Calcium 9.2 Phosphorus 3.0 Magnesium 2.1 Iron TIBC Iron Saturation Unsat Iron Binding Ferritin Total Bilirubin 0.9 D AST 211 H ALT 274 H Alkaline Phosphatase 119 H D Total Protein 6.5 Albumin 2.9 L Globulin 3.6 H Albumin/Globulin Ratio 0.8 L Triglycerides 89 Cholesterol 98 L LDL Cholesterol, Calc 65 HDL Cholesterol 15 L Cholesterol/HDL Ratio 6.5 Vitamin B12 Folate ABG Interpretation ABG results: 05/29/25 05:33 ABG pH 7.38 ABG pCO2 24 L ABG pO2 57 L* ABG HCO3 14 L ABG O2 Saturation 87 L ABG Base Excess -9 L Quality Measures Quality Measures VTE prophylaxis Assessment & Plan Assessment Current Active Medications: Generic Name Dose Route Start Last Admin Trade Name Freq PRN Reason Stop Dose Admin Acetaminophen 325 mg 05/29/25 12:07 Acetaminophen 325 Mg Tablet PO 06/28/25 12:06 Q6H PRN Fever >101.5, Pain 1-3 Albuterol/Ipratropium 3 ml 05/29/25 12:07 Albuterol/Ipratropium (Duoneb) Rt Becky 3 Ml Nebu INH 06/28/25 12:06 Q2HR PRN SHORTNESS OF BREATH OR WHEEZE Azithromycin 500 mg/ Sodium 250 mls @ 250 mls/hr 05/29/25 08:56 05/30/25 09:22 Chloride IV 06/01/25 08:55 250 mls/hr QDAY COTY Administration Heparin Sodium/Dextrose 25,000 unit in 250 mls @ 14.696 mls/hr 05/29/25 12:15 05/30/25 09:20 Heparin In D5w Ivpb IV 06/12/25 12:14 16 units/kg/hr .Q17H1M COTY 13.064 mls/hr Protocol Administration 18 UNITS/KG/HR Piperacillin/Tazobactam/Dextrose 3.375 gm in 50 mls @ 12.5 mls/hr 05/29/25 14:00 05/30/25 05:19 Zosyn IV 06/05/25 13:59 12.5 mls/hr Q8HR COTY Administration Protocol Vancomycin HCl 250 mls @ 120 mls/hr 05/30/25 08:30 05/30/25 11:05 Vancomycin/Water 1250 Mg Ivpb IV 06/06/25 08:29 120 mls/hr BID@1000,2200 COTY Administration Protocol Ipratropium Brantley 0.5 mg 05/29/25 13:00 05/30/25 06:52 Ipratropium Rt 0.5 Mg/ 2.5 Ml Nebu INH 06/28/25 12:59 0.5 mg Q6HRRT COTY Administration Levalbuterol HCl 1.25 mg 05/29/25 13:00 05/30/25 06:52 Levalbuterol Rt 1.25 Mg/0.5 Ml Nebu INH 06/28/25 12:59 1.25 mg Q6HRRT COTY Administration Nicotine 21 mg 05/29/25 12:15 05/30/25 09:23 Nicotine Patch 21 Mg/24 Hr Patch.Td24 TOP 06/28/25 12:14 21 mg QDAY COTY Administration Ondansetron HCl 4 mg 05/29/25 12:07 Ondansetron Inj 2 Mg/Ml Inj 2 Ml IVP 06/28/25 12:06 Q6H PRN NAUSEA OR VOMITING Protocol Pantoprazole Sodium 40 mg 05/29/25 12:15 05/30/25 09:23 Pantoprazole Inj 40 Mg Vial IVP 06/28/25 12:14 40 mg QDAY COTY Administration Pharmacy Consult 1 each 05/30/25 09:00 Vancomycin Pharmacy To Dose 1 Each Each IV 06/29/25 08:59 QDAY PRN PROTOCOL Sodium Chloride 3 ml 05/29/25 06:34 05/29/25 06:52 Sodium Chloride Rt Becky 0.9% 3 Ml Nebu INH 06/28/25 06:33 3 ml PRN PRN Administration SOLN Sodium Chloride 3 ml 05/29/25 12:07 Sodium Chloride Rt Becky 0.9% 3 Ml Nebu INH 06/28/25 12:06 PRN PRN SOLN Plan Assessment and plan: Summary: Mr. Yost is a 64-year-old male with past medical history of schizophrenia, COPD on supplemental home oxygen, chronic active smoker greater than 40 pack years and status post right inguinal hernia repair in 2018 who presented to [facility] emergency department with a chief complaint of shortness of breath. Patient admitted for acute on chronic hypoxic respiratory failure, pleural effusion, pneumonia and pulmonary emboli. #Acute on chronic hypoxic respiratory failure #Right lung pleural effusion, suspicion of malignant pleural effusion status post thoracentesis 05/29 #Community-acquired pneumonia, left upper lobe, right lower lobe #Mild bilateral pulmonary artery emboli #COPD #Leukocytosis Patient presented with shortness of breath, requiring supplemental oxygen, does use supplemental oxygen at home, unknown quantity however per brother on 8 L at home for the last 2 weeks. Patient on presentation requiring 12 L through nonrebreather, was placed on BiPAP in ED. 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 D-dimer elevated greater than 3820, lactate on presentation 9.0, Pro-Antony 1.33, BNP 207, troponin 0.037, WBC 14.0, neutrophilia noted Findings discussed with digester hand Dr. Jolly, thoracentesis performed on BiPAP after taking consent from patient, 750 cc drained. See op report for details. Postprocedure no pneumothorax, improved effusion noted. Patient transition to nasal cannula after procedure SpO2 greater than 92 on 6 L. No suspicion of underlying COPD exacerbation currently. 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 Suspicion of malignancy - Will consider oncology consult in a.m. #Bilateral lower extremity edema #Anasarca Patient has bilateral lower extremity edema, ascites and anasarca. Patient was given Lasix 40 mg IV x 1 earlier this morning. Troponin negative EKG shows no acute ST-T changes - Follow echocardiogram to assess heart function-pending - Lasix 40 IV x 1, IV albumin x 1 #Lactic acidosis, type A with some component of type B #High anion gap metabolic acidosis, resolved Patient had lactic acidosis, lactate 9 on presentation with high anion gap metabolic acidosis, repeat labs showed resolution of the gap. Lactate downtrending, possible type B component secondary to malignancy/liver dysfunction - Follow labs in a.m. #Transaminitis, hyperbilirubinemia #Suspicion of liver cirrhosis #Thrombocytopenia, Elevated INR Patient's imaging finding reflective of cirrhosis, thrombocytopenia elevated INR noted on presentation, significant transaminitis. Ammonia levels within normal limits. Abdominal ultrasound negative for cholelithiasis and cholecystitis. - Follow liver panel in a.m. - Neurochecks every 4 hours #Normocytic normochromic anemia #Iron deficiency Patient presented with hemoglobin 13.4, iron levels obtained 46, ferritin within normal limits iron saturation 16% TIBC within normal limits - Will consider discharging on oral iron #Schizophrenia Reports that he was diagnosed with schizophrenia, not following a psychiatrist not on any medications -Will avoid any antipsychotics due to underlying illness for now. #Chronic active smoker, greater than 40 pack years - Smoking cessation counseling/education - Daily nicotine patch DVT prophylaxis: Heparin GTT GI prophylaxis: IV Protonix Diet: Cardiac diet, fluid restriction 1500 cc Lines: Peripheral IV Code status: Full code Case discussed with Attending Physician Dr. Janeth Ballesteros MD Internal Medicine PGY-2 Attending Provider Attestation/Addendum 64 yo male with schizophrenia, chroic smoker admitted for respiratory failure requiring bipap. Check pleural fluid cytolcogy. continue current medications, Discussed with housestaff. CT brain recomemnded.
--- NOTE | 2025-05-30 13:18 | PD.ONCCONS ---
HPI Data of Consult Requesting Physician: Iwona Ballesteros MD Primary Care Provider: BC Caraballo Consult Narrative cc:: cc: Iwona Ballesteros MD Meds Home Medications and Allergies Home Medications ?Medication ?Instructions ?Recorded ?Confirmed ?Type No Known Home Medications 03/02/18 05/29/25 History Allergies Allergy/AdvReac Type Severity Reaction Status Date / Time No Known Allergies Allergy Unverified 03/06/18 10:09 Exam Vital Signs Temp Pulse Resp BP Pulse Ox O2 Del Method O2 Flow Rate 96.9 F 101 H 24 H 107/78 92 L Nasal Cannula 5 05/30/25 08:00 05/30/25 13:10 05/30/25 13:10 05/30/25 08:00 05/30/25 13:10 05/30/25 04:00 05/30/25 13:10 FiO2 40 05/30/25 11:10 Results Labs 06/06/25 05:10 06/06/25 05:10 Labs: Short CBC 05/30/25 Range/Units 04:13 WBC 14.7 H (3.8-10.6) Thou/mm3 Hgb 12.5 L (13.5-16.0) g/dL Hct 41.2 (41.0-53.0) % Plt Count 83 L D (140-440) Thou/mm3 BMP 05/29/25 05/30/25 12:13 04:13 Sodium 142 141 Potassium 4.0 D 3.7 Chloride 107 108 H Carbon Dioxide 20.1 19.4 L BUN 21 21 Creatinine 1.1 1.0 Glucose 147 H 147 H Calcium 8.5 8.3 Liver Function 05/29/25 05/30/25 Range/Units 12:13 04:13 Total Bilirubin 0.9 D (0.3-1.2) mg/dL AST 211 H (0-34) U/L ALT 274 H (10-49) U/L Alkaline Phosphatase 119 H D (46-116) U/L Albumin 3.3 L 2.9 L (3.4-4.8) gm/dL ABG Interpretation ABG results: 05/29/25 05:33 ABG pH 7.38 ABG pCO2 24 L ABG pO2 57 L* ABG HCO3 14 L ABG O2 Saturation 87 L ABG Base Excess -9 L
[2025-05-30 13:20] LABS: Lactic Acid, 3 HR 4.1 mMol/L (0.4-2.0)
--- NOTE | 2025-05-30 13:40 | PC.PT ---
PT approached patient for PT eval. RN informed PT that patient would be placed on BiPAP soon and to hold PT. Will hold PT eval until patient is off BiPAP and stable to work with PT. RN made aware.
[2025-05-30] MEDS: HEPARIN SOD INJ 5000 UNIT/ML VIAL 3100 UNIT IV (13:41)
--- NOTE | 2025-05-30 15:58 | PC.NURSE ---
Provider Emily is to speak with Favian about pt needing to go to CT. pt finally compliant with Bipap as of an hour ago
--- NOTE | 2025-05-30 17:27 | PC.NURSE ---
Pt refusing bipap, tore of the mask and threw it on the ground, pt yelling for fluids knowing he is on a fluid restriction, pt has been noncompliant with fluid restriction all day. CT Per updated about pt agitation. still going to wait until pt can cooperate and hold still for CT
[2025-05-30] MEDS: FUROSEMIDE INJ 10 MG/ML 4ML VIAL 40 MG IVP (18:35)
[2025-05-30 18:58] LABS: Lactate (Lactic Acid) 3.2 mMol/L (0.4-2.0)
[2025-05-30 21:07] LABS: Partial Thromboplastin Time 57.7 Seconds (22.0-36.0)
[2025-05-30 21:54] LABS: Reflex Lactate? Y
[2025-05-30 23:31] LABS: Lactic Acid, 3 HR 3.4 mMol/L (0.4-2.0)
[2025-05-31] VITALS (24 sets, daily range): BP systolic 74–145; BP diastolic 47–112; PULSE 73–136; RESP 12–92; TEMP 36.1–36.6; O2SAT 84–99; BMI 23.1
[2025-05-31] MEDS: IPRATROPIUM RT 0.5 MG/ 2.5 ML NEBU INH ×4 (00:50→19:05)
[2025-05-31] MEDS: LEVALBUTEROL RT 1.25 MG/0.5 ML NEBU INH ×4 (00:50→19:05)
[2025-05-31] MEDS: Heparin/D5w 25K 250 ML Ivpb 25,000 UNIT/250 ML BAG 14.696 UNIT IV ×2 (02:59→22:45)
[2025-05-31 04:35] LABS: Partial Thromboplastin Time 59.2 Seconds (22.0-36.0)
[2025-05-31] MEDS: PIPER/TAZO 3.375 GM PREMIX 3.375 GM/50 ML BAG IV ×3 (05:29→21:05)
[2025-05-31 06:34] LABS: Basophils # (Auto) 0.0 Thou/mm3 (0.0-0.2); Basophils % (Auto) 0 % (0-2.5); Eosinophils # (Auto) 0.0 Thou/mm3 (0.0-0.5); Eosinophils % (Auto) 0 % (0-10); Hematocrit 40.4 % (41.0-53.0); Hemoglobin 12.0 g/dL (13.5-16.0); Immature Granulocytes Auto 0.45 Thou/mm3 (0.00-0.00); Lymphocytes # (Auto) 0.8 Thou/mm3 (1.0-4.8); Lymphocytes % (Auto) 5 % (10-50); Mean Corpuscular HGB Conc 29.7 g/dl (31.0-37.0); Mean Corpuscular Hemoglobin 26.1 pg (25.0-35.0); Mean Corpuscular Volume 88 fL (80-100); Monocytes # (Auto) 0.8 Thou/mm3 (0.0-0.8); Monocytes % (Auto) 5 % (0-12); Neutrophils # (Auto) 14.3 Thou/mm3 (1.8-7.7); Neutrophils % (Auto) 87 % (37-80); Nucleated Red Blood Cell # 0.06 Thou/mm3 (0.00-0.00); Nucleated Red Blood Cell % 0 /100 WBC (0); Platelet Count 100 Thou/mm3 (140-440); RDW Standard Deviation 64.5 fL (35.1-43.9); Red Blood Count 4.60 Miln/mm3 (4.50-5.90); White Blood Count 16.4 Thou/mm3 (3.8-10.6)
[2025-05-31 07:05] LABS: Alanine Aminotransferase 211 U/L (10-49); Albumin, Serum 3.2 gm/dL (3.4-4.8); Albumin/Globulin Ratio 1.0 (1.2-2.2); Alkaline Phosphatase 107 U/L (46-116); Anion Gap 12 (7-16); Aspartate Amino Transferase 124 U/L (0-34); BUN/Creatinine Ratio 22 Ratio (12-20); Bilirubin,Total 1.1 mg/dL (0.3-1.2); Blood Urea Nitrogen 22 mg/dL (9-23); Calcium 9.1 mg/dL (8.3-10.6); Calcium (Corrected) 9.7 mg/dL (8.5-10.1); Carbon Dioxide 21.3 mMol/L (20.0-31.0); Chloride 106 mMol/L (98-107); Creatinine (Component) 1.0 mg/dL (0.6-1.3); Estimated Creatinine Clearance 84.0 mL/min (>60); Globulin 3.3 gm/dL (2.3-3.5); Glucose 102 mg/dL (74-106); Magnesium 2.1 mg/dL (1.6-2.6); Osmolality,Calculated 280 (275-295); Phosphorous 2.8 mg/dL (2.4-5.1); Potassium 3.8 mMol/L (3.4-5.1); Sodium 139 mMol/L (136-145); Total Protein 6.5 gm/dL (5.7-8.2); eGFR > 60 See Note
[2025-05-31 07:09] LABS: INR 1.3 (0.9-1.3); Partial Thromboplastin Time 55.0 Seconds (22.0-36.0); Prothrombin Time 13.6 Seconds (9.0-12.2)
[2025-05-31] MEDS: POTASSIUM CHLORIDE 10% 20 MEQ/15 ML UDC 40 MEQ PO (09:58)
[2025-05-31] MEDS: AZITHROMYCIN INJ 500 MG in SODIUM CHLORIDE 0.9% 250 ML 250 ML 250 MG IV (09:59)
[2025-05-31] MEDS: VANCOMYCIN/WATER 1250 MG IVPB 250 ML 120 MG IV ×2 (09:59→22:45)
[2025-05-31] MEDS: NICOTINE PATCH 21 MG/24 HR PATCH.TD24 TOP (09:59)
[2025-05-31] MEDS: HALOPERIDOL LACT INJ 5 MG/ML VIAL IV (10:44)
--- NOTE | 2025-05-31 10:48 | XR_ITS ---
EXAMINATION: AP chest single view TECHNIQUE: AP portable semiupright chest single view Date and time: May 31, 2025, 11:01 a.m., comparison May 29, 2025 INDICATION: Dyspnea today FINDINGS: Again noted large pulmonary mass right upper lobe Interval more severe diffuse pneumonia left lung consider aspiration pneumonia Mild enlargement cardiac contour with prominent vascular congestion IMPRESSION: More prominent diffuse pneumonia left lung, consider aspiration pneumonia
[2025-05-31] MEDS: MIDAZOLAM INJ 1 MG/ML VIAL 2 ML 2 MG IVP (10:51)
--- NOTE | 2025-05-31 10:56 | EVENTNT_ITS ---
<Statement entered by Iwona Ballesteros MD - 05/31/25 16:09> Patient was seen and examined by me personally. I have reviewed the below documentation by the team resident and agree with its findings. Plan was discussed with the attending, Dr. Mike Tinsley MD Internal Medicine, PGY-2 Documentation for date of: 05/31/25 Event Note Event Note: Rapid response was called for dyspnea, agitation, and O2 sat 81%. Patient had been transitioned to BiPAP and was having difficulty breathing via the machine. Patient had increased tidal volume with increased work of breathing with increased minute ventilation noted on BiPAP. Physical exam showed harsh expiratory breath sounds in bilateral lower lobes and 2+ pitting edema of bilateral lower extremities. Ordered IV Haldol 5mg, ABG, CXR, Versed 2mg, and albuterol 5ml inhalation x 1. Patient was sedated. As patient was noted to be fluid overloaded on physical exam, decision was made to order Lasix IVP 40mg x1 to be administered 20 minutes after albumin 25 g x1, given hx of cirrhosis in the patient. Subsequently, patient became hypotensive had another rapid response was initiated, with BP 77/48, HR 81, patient satting 88% via BiPAP. ICU team had been present on the scene from the previous rapid response call, who agreed to upgrading the patient from floors to ICU care, for closer monitoring. This case was discussed with my attending physician, Dr. Sultana, and senior resident, Dr Ballesteros. Even though this this note was carefully revised there may still be minor errors in mechanical engineering director due to voice recognition software. Jozef Crisostomo DO PGY I
[2025-05-31] MEDS: ALBUTEROL RT 2.5 MG/0.5 ML NEBU 5 MG INH (10:59)
[2025-05-31] MEDS: SODIUM CHLORIDE RT SOL 0.9% 3 ML NEBU INH (11:00)
[2025-05-31 11:07] LABS: Base Excess -9 (-3-3); HCO3 16 mEq/L (20-26); O2 Saturation 99 % (91-98); PCO2 33 mmHg (32.0-48.0); PO2 125 mmHg (83-108); pH, Arterial 7.30 (7.35-7.45)
[2025-05-31 11:10] LABS: Allen Test Performed/OK; Puncture Site Left Radial
[2025-05-31] MEDS: ALBUMIN HUMAN-KJDA 25% IVPB 25 GM/100 ML BTL IV (11:24)
[2025-05-31 11:26] LABS: Inspired Oxygen, FIO2 100 %
--- NOTE | 2025-05-31 13:13 | ESCONSULT_ITS ---
HPI Data of Consult Requesting Physician: Iwona Ballesteros MD Admitting Provider: Meri Shetty DO Attending Provider: Iwona Ballesteros MD Primary Care Provider: BC Caraballo Consult Narrative History of present illness: Patient is a 64 year old male with past medical history of schizophrenia, COPD on supplemental home oxygen, chronic active smoker greater than 40 pack years and status post right inguinal hernia repair in 2018 who presented to ED on 05/29/25 for shortness of breath. Patient was admitted telemetry for acute on chronic hypoxic respiratory failure, pleural effusion, pneumonia and pulmonary emboli. Rapid response called at 1038 today for dyspnea and agitation, was tachypnic and saturation dropped to 87% on BiPAP but was protecting airway. Given Haldol 5 mg x1 and Versed 2 mg x1 with improvement in agitation, as well as albuterol x1 and levalbuterol x1 with improvement of O2 saturation. Another rapid response called at 1133 for BP 74/47 MAP 56. Patient was still protecting airway and had good circulation. Given IV albumin 25g, MAPs improved and maintaining MAP 67. Patient will be transferred to ICU for worsening acute respiratory distress. cc:: cc: Iwona Ballesteros MD Exam Vital Signs Temp Pulse Resp BP Pulse Ox O2 Del Method O2 Flow Rate 97.6 F 86 18 80/61 L 95 Oxy Mask 8 05/31/25 08:00 05/31/25 12:56 05/31/25 12:56 05/31/25 12:46 05/31/25 12:56 05/31/25 08:00 05/31/25 08:00 FiO2 100 05/31/25 12:56 Narrative Exam Physical Exam General: Awake and in no acute distress. Conversational and non-toxic appearing. Mildly anxious. HEENT: PERRLA. Normocephalic, atraumatic, mucous membranes moist. Heart: Regular rate and rhythm, normal S1 and S2, no murmurs appreciated. Lungs: Mild coarse breath sounds bilaterally. Abdomen: Soft, mildly distended, nontender, positive bowel sounds. No guarding or rebound tenderness. Mild ascites. Neurologic: Alert and oriented x3, no gross neurological deficit, and patient able to move all 4 extremities. Extremities: 2+ pitting edema extending up to hips. Skin: No rash or ecchymoses. Results Labs 06/01/25 04:20 06/01/25 04:20 Labs: Short CBC 05/31/25 Range/Units 05:00 WBC 16.4 H (3.8-10.6) Thou/mm3 Hgb 12.0 L (13.5-16.0) g/dL Hct 40.4 L (41.0-53.0) % Plt Count 100 L D (140-440) Thou/mm3 BMP 05/31/25 05:00 Sodium 139 Potassium 3.8 Chloride 106 Carbon Dioxide 21.3 BUN 22 Creatinine 1.0 Glucose 102 Calcium 9.1 Liver Function 05/31/25 Range/Units 05:00 Total Bilirubin 1.1 (0.3-1.2) mg/dL AST 124 H (0-34) U/L ALT 211 H (10-49) U/L Alkaline Phosphatase 107 (46-116) U/L Albumin 3.2 L (3.4-4.8) gm/dL ABG Interpretation ABG results: 05/29/25 05/31/25 05:33 10:53 ABG pH 7.38 7.30 L ABG pCO2 24 L 33 ABG pO2 57 L* 125 H D ABG HCO3 14 L 16 L ABG O2 Saturation 87 L 99 H ABG Base Excess -9 L -9 L Quality Measures Quality Measures VTE prophylaxis Medications Home Medications and Allergies Home Medications ?Medication ?Instructions ?Recorded ?Confirmed ?Type No Known Home Medications 03/02/1805/04 History Allergies Allergy/AdvReac Type Severity Reaction Status Date / Time No Known Allergies Allergy Unverified 03/06/18 10:09 Visit Medications Acetaminophen (Acetaminophen 325 Mg Tablet) 325 mg PO Q6H PRN PRN Reason: Fever >101.5, Pain 1-3 Stop: 06/28/25 12:06 Hydrocodone Bitart/Acetaminophen (Hydrocodone/Apap 5/325 Tablet) 1 tab PO Q6HR PRN PRN Reason: PAIN SCALE 4-10(Mod-Sev Stop: 06/05/25 10:36 Albuterol/Ipratropium (Albuterol/Ipratropium (Duoneb) Rt Becky 3 Ml Nebu) 3 ml INH Q2HR PRN PRN Reason: SHORTNESS OF BREATH OR WHEEZE Stop: 06/28/25 12:06 Azithromycin 500 mg/ Sodium (Chloride) 250 mls @ 250 mls/hr IV QDAY [facility] Stop: 06/01/25 08:55 Last Admin: 05/31/25 09:59 Dose: 250 mls/hr Heparin Sodium/Dextrose (Heparin In D5w Ivpb) 25,000 unit in 250 mls @ 14.696 mls/hr IV .Q17H1M [facility]; Protocol Stop: 06/12/25 12:14 Last Admin: 05/31/25 02:59 Dose: 18 units/kg/hr, 14.696 mls/hr Piperacillin/Tazobactam/Dextrose (Zosyn) 3.375 gm in 50 mls @ 12.5 mls/hr IV Q8HR [facility]; Protocol Stop: 06/05/25 13:59 Last Admin: 05/31/25 05:29 Dose: 12.5 mls/hr Vancomycin HCl (Vancomycin/Water 1250 Mg Ivpb) 250 mls @ 120 mls/hr IV BID@1000,2200 [facility]; Protocol Stop: 06/06/25 08:29 Last Admin: 05/31/25 09:59 Dose: 120 mls/hr Albumin Human (Albuminex 25% Ivpb) 25 gm in 100 mls @ 100 mls/hr IV QDAY [facility] Stop: 06/03/25 11:03 Last Admin: 05/31/25 11:24 Dose: 100 mls/hr Ipratropium [place] (Ipratropium Rt 0.5 Mg/ 2.5 Ml Nebu) 0.5 mg INH Q6HRRT [facility] Stop: 06/28/25 12:59 Last Admin: 05/31/25 12:56 Dose: 0.5 mg Levalbuterol HCl (Levalbuterol Rt 1.25 Mg/0.5 Ml Nebu) 1.25 mg INH Q6HRRT [facility] Stop: 06/28/25 12:59 Last Admin: 05/31/25 12:56 Dose: 1.25 mg Nicotine (Nicotine Patch 21 Mg/24 Hr Patch.Td24) 21 mg TOP QDAY [facility] Stop: 06/28/25 12:14 Last Admin: 05/31/25 09:59 Dose: 21 mg Ondansetron HCl (Ondansetron Inj 2 Mg/Ml Inj 2 Ml) 4 mg IVP Q6H PRN; Protocol PRN Reason: NAUSEA OR VOMITING Stop: 06/28/25 12:06 Pantoprazole Sodium (Pantoprazole Inj 40 Mg Vial) 40 mg IVP QDAY [facility] Stop: 06/28/25 12:14 Last Admin: 05/31/25 09:59 Dose: 40 mg Pharmacy Consult (Vancomycin Pharmacy To Dose 1 Each Each) 1 each IV QDAY PRN PRN Reason: PROTOCOL Stop: 06/29/25 08:59 Sodium Chloride (Sodium Chloride Rt [place] 0.9% 3 Ml Nebu) 3 ml INH PRN PRN PRN Reason: SOLN Stop: 06/30/25 10:51 Last Admin: 05/31/25 11:00 Dose: 3 ml Discontinued Medications Albuterol (Albuterol Rt 2.5 Mg/0.5 Ml Nebu) 5 mg INH X1 ONE Stop: 05/29/25 06:35 Last Admin: 05/29/25 06:52 Dose: 5 mg Albuterol (Albuterol Rt 2.5 Mg/0.5 Ml Nebu) 5 mg INH X1 ONE Stop: 05/31/25 10:53 Last Admin: 05/31/25 10:59 Dose: 5 mg Enoxaparin Sodium (Enoxaparin Sod Inj 80 Mg/0.8 Ml Syringe) 80 mg SC X1 ONE Stop: 05/29/25 09:26 Last Admin: 05/29/25 10:48 Dose: Not Given Furosemide (Furosemide Inj 10 Mg/Ml 4ml Vial) 40 mg IVP X1 ONE Stop: 05/29/25 05:21 Last Admin: 05/29/25 05:31 Dose: 40 mg Furosemide (Furosemide Inj 10 Mg/Ml 4ml Vial) 40 mg IVP X1 ONE Stop: 05/30/25 16:51 Last Admin: 05/30/25 18:35 Dose: 40 mg Furosemide (Furosemide Inj 10 Mg/Ml 4ml Vial) 40 mg IVP X1 ONE Stop: 05/31/25 11:05 Last Admin: 05/31/25 12:46 Dose: Not Given Haloperidol Lactate (Haloperidol Lact Inj 5 Mg/Ml Vial) 5 mg IV X1 ONE Stop: 05/31/25 10:41 Last Admin: 05/31/25 10:44 Dose: 5 mg Heparin Sodium (Porcine) (Heparin Sod Inj 5000 Unit/Ml Vial) 6,550 unit 80 unit/kg (6550 unit) IV X1 ONE; Protocol Stop: 05/29/25 12:15 Last Admin: 05/29/25 14:35 Dose: 6,550 unit Heparin Sodium (Porcine) (Heparin Sod Inj 5000 Unit/Ml Vial) 3,100 unit 40 unit/kg (3100 unit) IV X1 ONE Stop: 05/30/25 13:19 Last Admin: 05/30/25 13:41 Dose: 3,100 unit Hydroxyzine HCl (Hydroxyzine Hcl 25 Mg Tablet) 25 mg PO X1 ONE Stop: 05/30/25 07:36 Last Admin: 05/30/25 09:22 Dose: 25 mg Sodium Chloride (Ns) 2,328 mls @ 2,328 mls/hr 30 ml/kg infuse over 60 min (2328 ml) IV .Q1H ONE Stop: 05/29/25 07:34 Last Admin: 05/29/25 10:47 Dose: Not Given Piperacillin/Tazobactam/Dextrose (Zosyn) 3.375 gm in 50 mls @ 100 mls/hr IV X1 ONE Stop: 05/29/25 07:04 Last Infusion: 05/29/25 07:17 Dose: Infused Ceftriaxone Sodium 2 gm/ (Sodium Chloride) 50 mls @ 100 mls/hr IV X1 ONE Stop: 05/29/25 09:24 Last Infusion: 05/29/25 11:29 Dose: Infused Ceftriaxone Sodium/Dextrose (Rocephin/D5w 1gm Iv Premix) 1 gm in 50 mls @ 100 mls/hr IV QDAY [facility] Stop: 06/06/25 08:59 Albumin Human (Albuminex 25% Ivpb) 25 gm in 100 mls @ 100 mls/hr IV X1 ONE Stop: 05/30/25 11:39 Last Infusion: 05/30/25 18:35 Dose: Infused Methylprednisolone Sodium Succinate (Methylprednisolone Sod Succ 62.5 Mg/Ml 2ml Vial) 125 mg IVP X1 ONE Stop: 05/29/25 06:35 Last Admin: 05/29/25 06:47 Dose: 125 mg Midazolam HCl (Midazolam Inj 1 Mg/Ml Vial 2 Ml) 2 mg IVP X1 ONE Stop: 05/31/25 10:48 Last Admin: 05/31/25 10:51 Dose: 2 mg Morphine Sulfate (Morphine Sulf Inj 4 Mg/Ml Vial) 2 mg IV X1 ONE Stop: 05/29/25 05:21 Last Admin: 05/29/25 05:31 Dose: 2 mg Nitroglycerin (Nitroglycerin Oint 2% 1 Inch Packet) 1 inch TOP X1 ONE Stop: 05/29/25 05:21 Last Admin: 05/29/25 05:30 Dose: 1 inch Potassium Chloride (Potassium Chloride 20 Meq Tabcr) 40 meq PO X1 ONE Stop: 05/30/25 08:06 Last Admin: 05/30/25 09:22 Dose: 40 meq Potassium Chloride (Potassium Chloride 10% 20 Meq/15 Ml Udc) 40 meq PO X1 ONE Stop: 05/31/25 09:38 Last Admin: 05/31/25 09:58 Dose: 40 meq Sodium Chloride (Sodium Chloride Rt Becky 0.9% 3 Ml Nebu) 3 ml INH PRN PRN PRN Reason: SOLN Stop: 06/28/25 06:33 Last Admin: 05/29/25 06:52 Dose: 3 ml Sodium Chloride (Sodium Chloride Rt Becky 0.9% 3 Ml Nebu) 3 ml INH PRN PRN PRN Reason: SOLN Stop: 06/28/25 12:06 Sodium Chloride (Sodium Chloride Rt 10% 15 Ml Nebu) 5 ml INH X1 ONE Stop: 05/29/25 12:21 Last Admin: 05/30/25 18:36 Dose: Not Given Assessment & Plan Plan atient is a 64 year old male with past medical history of schizophrenia, COPD on supplemental home oxygen, chronic active smoker greater than 40 pack years and status post right inguinal hernia repair in 2018 who presented to ED on 05/29/25 for shortness of breath. Patient was admitted telemetry for acute on chronic hypoxic respiratory failure, pleural effusion, pneumonia and pulmonary emboli, upgraded to ICU on 05/31 for worsening acute on chronic respiratory distress. [employer] #History of schizophrenia #Agitation/Anxiety Diagnostic work up: -Per chart review, recently diagnosed with PCP however not following psychiatrist - Not on any psych medication Treatment: - Not currently on any psych medications - Haldol as needed for agitation Treatment follow up: - Follow-up with family or PCP regarding diagnosis CVS #Hypotension DDx: Sepsis, cirrhosis Diagnostic workup: - MAP dropped to 57 with systolic in 80s Treatment: -IV albumin 25 g -Currently stable off pressors Treatment follow-up: -Start pressors to continue to be hypotensive despite fluid resuscitation Pulm #Acute on chronic hypoxic respiratory failure #? COPD exacerbation #History of COPD Likely secondary to pneumonia Diagostic work up; -Chronic smoking history - Presented with shortness of breath requiring 10 L supplemental oxygen at home. Per chart review patient usually uses a liters at home per brother. - Used rescue inhaler use for the past 2 weeks prior to admission -Lactic 9.0, Pro-Antony 1.33, WBC 14 with neutrophil dominance -CT showed bilateral pneumonia and left upper lobe and right lower lobe Treatment: - On BiPAP -IV Azithromycin, Zosyn and Vancomycin (05/29? -Levalbuterol/ipratropium every 6 hours Treatment follow up: -DuoNebs as needed - Wean oxygen as tolerated #Bilateral pulmonary embolisms Likely secondary to hypercoagable state in setting of malignancy Diagnostic workup: - Presented with shortness of breath requiring 10 L supplemental oxygen at home. 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 -S/p thoracentesis, -750 cc -Per lights criteria, fluid is exudative, likely secondary to malignancy Treatment: -Consulted oncology, appreciate recommendations Treatment follow-up: - Ordered CT head with and without contrast to assess for possible metastasis - Follow-up pleural studies and fluid cytology - Reevaluate in the AM for recurrent fluid accumulation GI #Cirrhosis #Transaminitis (improving) #Hyperbilirubinemia #Anasarca Likely secondary to history of alcohol use Diagnostic work up: - Per chart review, patient consumed moderate amount of alcohol for many years -Has elevated INR and thrombocytopenia, indicative of chronic pathology -On exam, mild ascites and anasarca -AST 400s -> 124 - ALT 300s -> 211 Treatment: - S/p Lasix/diuresis by hospitalist team - No active treatment at this time Treatment follow up: - Follow hepatitis panel - IV albumin for fluid resuscitation - Consider Rifaximin once patient tolerating PO Renal #Lactic acidosis type A & B (improving) -Multifactorial: Type a in setting of hypoxia versus type B in setting of cirrhosis/malignancy Diagnostic workup: - Lactic acid 9 -> 3.4, likely persistent in setting of cirrhosis Treatment: - Treat underlying cause Treatment follow-up - Trend lactic every 3 hour #HAGMA (resolved) Heme/onc #Right upper lung tumor Diagnostic workup: -CT findings as above Treatment: -Oncology consulted, appreciate recommendations Treatment follow-up: - Ordered CT head with and without contrast to assess for possible metastasis - Follow-up pleural studies and fluid cytology #SURYA Diagnostic workup: -Hemoglobin 13.4 -Iron studies showed low iron and iron saturation, ferritin and TIBC within normal limits Treatment: -No active treatment at this time Treatment follow-up: -Consider starting on iron once infection ruled out or cleared #Leukocytosis, reactive versus infectious Diagnostic workup: - WBC 14 -> 16 -> 15 - Influenza A&B, COVID negative - UA clean - CT showed bilateral pneumonia and left upper lobe and right lower lobe - Sputum Gram stain showed rare WBCs, 1+ GPC, 1+ GNR Treatment: -Azithromycin, Zosyn and vancomycin Treatment follow-up: - Monitor a.m. CBC ID #? Pneumonia Diagnostic workup: - Presented with worsening breathing and increased oxygen requirements - WBC 14 -> 16 -> 15 - Influenza A&B, COVID negative - UA clean - CT showed bilateral pneumonia and left upper lobe and right lower lobe - Sputum Gram stain showed rare WBCs, 1+ GPC, 1+ GNR Treatment: -Azithromycin, Zosyn and vancomycin -On BiPAP Treatment follow-up: - Monitor a.m. CBC - Wean oxygen as tolerated - Follow up repeat blood and final sputum cultures ICU Health maintenance: Mechanical ventilation: None, on BiPAP Sedation: none Diet: NPO DVT prophylaxis: Heparin drip GI prophylaxis: none Aguilar: None Lines: PIV Antibiotics: Zosyn, vanc, and azithromycin CODE STATUS: Full Patient plan of care was discussed with the senior resident, Dr. Saunders, and attending physician, Dr. Jolly. Jeniffer Wilkins DO, PGY-1 Attending Provider Attestation/Addendum pt seen and examined, d/w resident team. in brief this is a 64y M who presented to the ER for SOB. He was admitted to the floor for new lung mass and pleural effusion and carries a dx of chronic resp failure on home O2. He had a rapid response called for hypoxia and was placed on bipap but he was agitated. He became diaphoretic and clammy. I saw him during the rapid and there was b/l expiratory wheeze and use of accessory muscles. He was on 10/5/100%. He was given some ativan for his agitation and his sats improved. It was felt that given his h/o schizophrenia that has been untx that anxiety was likely playing a part in his WOB. He was also given 5mg of haldol and calmed down. He was transferred to the ICU. We were able to come down on his FiO2 to 70%. It was felt that perhaps the mask was producing some ongoing anxiety as well. The plan is to start precedex once he wakes up from the versed and haldol. case d/w floor team and ICU team labs, imaging, records reviewed ~60min required for eval, exam, review, intervention, discussion and formulation of POC for this critically illpt with acute/chronic resp failure at high risk for further and ongoing decompensation.
--- NOTE | 2025-05-31 13:36 | PD.RESEVENT ---
Documentation for date of: 05/31/25
[2025-05-31 14:16] LABS: Lactate (Lactic Acid) 4.5 mMol/L (0.4-2.0)
--- NOTE | 2025-05-31 14:57 | ESPR_ITS ---
Documentation for date of: 05/31/25 Subjective Subjective Interval history: Patient was seen and examined at bedside. No acute events took place overnight. ANO x 2. Patient confused somewhat. Patient complaining of back pain, rated 9/10. Patient admits to shortness of breath, denies chest pain. Admits to dry mouth, inability to sleep. Currently on 9 L via oxy mask. Rapid response was called for dyspnea, agitation, and O2 sat 81% at 8am. Patient had been transitioned to BiPAP and was having difficulty breathing via the machine. Patient became hypotensive subsequently, and was upgraded to ICU. Exam Vital Signs Temp Pulse Resp BP Pulse Ox O2 Del Method O2 Flow Rate 97.6 F 100 25 H 74/47 L 94 L BiPAP 8 05/31/25 14:25 05/31/25 14:25 05/31/25 14:25 05/31/25 14:25 05/31/25 14:25 05/31/25 12:00 05/31/25 13:15 FiO2 100 05/31/25 12:56 Narrative Exam General: Awake and in no acute distress. Conversational and non-toxic appearing. Frail and cachectic. Anxious, pressured speech. HEENT: Normocephalic, atraumatic, mucous membranes moist. On BiPAP Heart: Sinus tachycardia, no murmurs. Lungs: Bilateral wheezing, decreased breath sounds right lower lobe. Abdomen: Soft, nondistended, nontender, positive bowel sounds. ?No guarding or rebound tenderness. Neurologic: Alert and oriented x3, no gross neurological deficit, and patient able to move all 4 extremities. Extremities: 2+ bilateral lower extremity edema, positive mottling bilateral feet Skin: No rash or ecchymoses. Objective Labs 05/31/25 16:37 05/31/25 16:37 Labs: Laboratory Results - last 24 hr 05/30/25 05/30/25 05/30/25 18:48 19:57 23:06 WBC RBC Hgb Hct MCV MCH MCHC RDW Std Deviation Plt Count Neut % (Auto) Lymph % (Auto) [place] % (Auto) Eos % (Auto) Baso % (Auto) Neut # (Auto) Lymph # (Auto) [place] # (Auto) Eos # (Auto) Baso # (Auto) Immature Gran # (Auto) Absolute Nucleated RBC Immature Gran % Nucleated RBC % PT INR APTT 57.7 H D Puncture Site ABG pH ABG pCO2 ABG pO2 ABG HCO3 ABG O2 Saturation ABG Base Excess FiO2 Sodium Potassium Chloride Carbon Dioxide Anion Gap BUN Creatinine Estim Creat Clear Calc eGFR BUN/Creatinine Ratio Glucose Calculated Osmolality Lactic Acid 3.2 H 3.4 H Calcium Corrected Calcium Phosphorus Magnesium Total Bilirubin AST ALT Alkaline Phosphatase Total Protein Albumin Globulin Albumin/Globulin Ratio 05/31/25 05/31/25 05/31/25 03:11 05:00 10:53 WBC 16.4 H RBC 4.60 Hgb 12.0 L Hct 40.4 L MCV 88 MCH 26.1 MCHC 29.7 L RDW Std Deviation 64.5 H Plt Count 100 L D Neut % (Auto) 87 H Lymph % (Auto) 5 L [place] % (Auto) 5 Eos % (Auto) 0 Baso % (Auto) 0 Neut # (Auto) 14.3 H Lymph # (Auto) 0.8 L [place] # (Auto) 0.8 Eos # (Auto) 0.0 Baso # (Auto) 0.0 Immature Gran # (Auto) 0.45 H Absolute Nucleated RBC 0.06 H Immature Gran % 3 H Nucleated RBC % 0 PT 13.6 H D INR 1.3 APTT 59.2 H 55.0 H Puncture Site Left Radial ABG pH 7.30 L ABG pCO2 33 ABG pO2 125 H D ABG HCO3 16 L ABG O2 Saturation 99 H ABG Base Excess -9 L FiO2 100 Sodium 139 Potassium 3.8 Chloride 106 Carbon Dioxide 21.3 Anion Gap 12 BUN 22 Creatinine 1.0 Estim Creat Clear Calc 84.0 eGFR > 60 BUN/Creatinine Ratio 22 H Glucose 102 Calculated Osmolality 280 Lactic Acid Calcium 9.1 Corrected Calcium 9.7 Phosphorus 2.8 Magnesium 2.1 Total Bilirubin 1.1 AST 124 H ALT 211 H Alkaline Phosphatase 107 Total Protein 6.5 Albumin 3.2 L Globulin 3.3 Albumin/Globulin Ratio 1.0 L 05/31/25 14:02 WBC RBC Hgb Hct MCV MCH MCHC RDW Std Deviation Plt Count Neut % (Auto) Lymph % (Auto) [place] % (Auto) Eos % (Auto) Baso % (Auto) Neut # (Auto) Lymph # (Auto) [place] # (Auto) Eos # (Auto) Baso # (Auto) Immature Gran # (Auto) Absolute Nucleated RBC Immature Gran % Nucleated RBC % PT INR APTT Puncture Site ABG pH ABG pCO2 ABG pO2 ABG HCO3 ABG O2 Saturation ABG Base Excess FiO2 Sodium Potassium Chloride Carbon Dioxide Anion Gap BUN Creatinine Estim Creat Clear Calc eGFR BUN/Creatinine Ratio Glucose Calculated Osmolality Lactic Acid 4.5 H* Calcium Corrected Calcium Phosphorus Magnesium Total Bilirubin AST ALT Alkaline Phosphatase Total Protein Albumin Globulin Albumin/Globulin Ratio ABG Interpretation ABG results: 05/29/25 05/31/25 05:33 10:53 ABG pH 7.38 7.30 L ABG pCO2 24 L 33 ABG pO2 57 L* 125 H D ABG HCO3 14 L 16 L ABG O2 Saturation 87 L 99 H ABG Base Excess -9 L -9 L Quality Measures Quality Measures VTE prophylaxis Assessment & Plan Assessment Current Active Medications: Generic Name Dose Route Start Last Admin Trade Name Freq PRN Reason Stop Dose Admin Acetaminophen 325 mg 05/29/25 12:07 Acetaminophen 325 Mg Tablet PO 06/28/25 12:06 Q6H PRN Fever >101.5, Pain 1-3 Hydrocodone Bitart/Acetaminophen 1 tab 05/31/25 10:37 Hydrocodone/Apap 5/325 Tablet PO 06/05/25 10:36 Q6HR PRN PAIN SCALE 4-10(Mod-Sev Albuterol/Ipratropium 3 ml 05/29/25 12:07 Albuterol/Ipratropium (Duoneb) Rt Becky 3 Ml Nebu INH 06/28/25 12:06 Q2HR PRN SHORTNESS OF BREATH OR WHEEZE Azithromycin 500 mg/ Sodium 250 mls @ 250 mls/hr 05/29/25 08:56 05/31/25 09:59 Chloride IV 06/01/25 08:55 250 mls/hr QDAY COTY Administration Heparin Sodium/Dextrose 25,000 unit in 250 mls @ 14.696 mls/hr 05/29/25 12:15 05/31/25 02:59 Heparin In D5w Ivpb IV 06/12/25 12:14 18 units/kg/hr .Q17H1M COTY 14.696 mls/hr Protocol Administration 18 UNITS/KG/HR Piperacillin/Tazobactam/Dextrose 3.375 gm in 50 mls @ 12.5 mls/hr 05/29/25 14:00 05/31/25 14:22 Zosyn IV 06/05/25 13:59 12.5 mls/hr Q8HR COTY Administration Protocol Vancomycin HCl 250 mls @ 120 mls/hr 05/30/25 08:30 05/31/25 09:59 Vancomycin/Water 1250 Mg Ivpb IV 06/06/25 08:29 120 mls/hr BID@1000,2200 COTY Administration Protocol Albumin Human 25 gm in 100 mls @ 100 mls/hr 05/31/25 11:04 05/31/25 11:24 Albuminex 25% Ivpb IV 06/03/25 11:03 100 mls/hr QDAY COTY Administration Ipratropium [place] 0.5 mg 05/29/25 13:00 05/31/25 12:56 Ipratropium Rt 0.5 Mg/ 2.5 Ml Nebu INH 06/28/25 12:59 0.5 mg Q6HRRT COTY Administration Levalbuterol HCl 1.25 mg 05/29/25 13:00 05/31/25 12:56 Levalbuterol Rt 1.25 Mg/0.5 Ml Nebu INH 06/28/25 12:59 1.25 mg Q6HRRT COTY Administration Nicotine 21 mg 05/29/25 12:15 05/31/25 09:59 Nicotine Patch 21 Mg/24 Hr Patch.Td24 TOP 06/28/25 12:14 21 mg QDAY COTY Administration Ondansetron HCl 4 mg 05/29/25 12:07 Ondansetron Inj 2 Mg/Ml Inj 2 Ml IVP 06/28/25 12:06 Q6H PRN NAUSEA OR VOMITING Protocol Pantoprazole Sodium 40 mg 05/29/25 12:15 05/31/25 09:59 Pantoprazole Inj 40 Mg Vial IVP 06/28/25 12:14 40 mg QDAY COTY Administration Pharmacy Consult 1 each 05/30/25 09:00 Vancomycin Pharmacy To Dose 1 Each Each IV 06/29/25 08:59 QDAY PRN PROTOCOL Sodium Chloride 3 ml 05/31/25 10:52 05/31/25 11:00 Sodium Chloride Rt Becky 0.9% 3 Ml Nebu INH 06/30/25 10:51 3 ml PRN PRN Administration SOLN Plan Summary: Mr. Yost is a 64-year-old male with past medical history of schizophrenia, COPD on supplemental home oxygen, chronic active smoker greater than 40 pack years and status post right inguinal hernia repair in 2018 who presented to [facility] emergency department with a chief complaint of shortness of breath. Patient admitted for acute on chronic hypoxic respiratory failure, pleural effusion, pneumonia and pulmonary emboli. #Acute on chronic hypoxic respiratory failure #Dyspnea #Right lung pleural effusion, suspicion of malignant pleural effusion status post thoracentesis 05/29 #Community-acquired pneumonia, left upper lobe, right lower lobe #Mild bilateral pulmonary artery emboli #COPD #Leukocytosis Patient presented with shortness of breath, requiring supplemental oxygen, does use supplemental oxygen at home, unknown quantity however per brother on 8 L at home for the last 2 weeks. Patient on presentation requiring 12 L through nonrebreather, was placed on BiPAP in ED. 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 D-dimer elevated greater than 3820, lactate on presentation 9.0, Pro-Antony 1.33, BNP 207, troponin 0.037, WBC 14.0, neutrophilia noted Findings discussed with court officer Dr. Jolly, thoracentesis performed on BiPAP after taking consent from patient, 750 cc drained. See op report for details. Postprocedure no pneumothorax, improved effusion noted. ? Preliminary blood cultures grew GPC in 1/2 bottles. Rapid response was called for dyspnea, agitation, and O2 sat 81%. Patient had been transitioned to BiPAP and was having difficulty breathing via the machine. Patient had increased tidal volume with increased work of breathing with increased minute ventilation noted on BiPAP. Physical exam showed harsh expiratory breath sounds in bilateral lower lobes and 2+ pitting edema of bilateral lower extremities. Ordered IV Haldol 5mg, ABG, CXR, Versed 2mg, and albuterol 5ml inhalation x 1. Patient was sedated, and able to breathe through BiPAP. His O2 sat improved to 90 as a result. ? Chest x-ray showed diffuse pneumonia left lung concerning for aspiration pneumonia ? ABG (05/31) pH 7.52, pCO2 28, PaO2 50, bicarb 23 Plan: - Rapid Response: Lasix IVP 40mg x1 to be administered 20 minutes after albumin 25 g x1, given fluid overload status iso cirrhosis in the patient. - Continue IV Zosyn and azithromycin(05/29- - Heparin GTT - Follow echocardiogram to assess for right heart strain - Follow sputum culture, blood culture, pleural fluid culture - Incentive spirometer - Follow pleural studies - Follow-up pleural fluid cytology - BiPAP as needed - Levalbuterol/ipratropium every 6 hours - DuoNebs as needed - Consulted oncology - Ordered CT head with and without contrast to assess for possible metastasis #Hypotension patient became hypotensive with BP 77/48, HR 81, patient satting 88% via BiPAP. -ICU team had been present on the scene from the previous rapid response call, who agreed to upgrading the patient from floors to ICU care, for closer monitoring. 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 Suspicion of malignancy - Will consider oncology consult in a.m. #Bilateral lower extremity edema #Anasarca Patient has bilateral lower extremity edema, ascites and anasarca. Patient was given Lasix 40 mg IV x 1 earlier this morning. Troponin negative EKG shows no acute ST-T changes - Follow echocardiogram to assess heart function-pending - Lasix 40 IV x 1, IV albumin x 1 #Lactic acidosis, type A with some component of type B #High anion gap metabolic acidosis, resolved Patient had lactic acidosis, lactate 9 on presentation with high anion gap metabolic acidosis, repeat labs showed resolution of the gap. Lactate downtrending, possible type B component secondary to malignancy/liver dysfunction - Follow labs in a.m. #Transaminitis, hyperbilirubinemia #Suspicion of liver cirrhosis #Thrombocytopenia, Elevated INR Patient's imaging finding reflective of cirrhosis, thrombocytopenia elevated INR noted on presentation, significant transaminitis. Ammonia levels within normal limits. Abdominal ultrasound negative for cholelithiasis and cholecystitis. - Follow liver panel in a.m. - Neurochecks every 4 hours #Normocytic normochromic anemia #Iron deficiency Patient presented with hemoglobin 13.4, iron levels obtained 46, ferritin within normal limits iron saturation 16% TIBC within normal limits - Will consider discharging on oral iron #Schizophrenia Reports that he was diagnosed with schizophrenia, not following a psychiatrist not on any medications -Will avoid any antipsychotics due to underlying illness for now. #Chronic active smoker, greater than 40 pack years - Smoking cessation counseling/education - Daily nicotine patch DVT prophylaxis: Heparin GTT GI prophylaxis: IV Protonix Diet: Cardiac diet, fluid restriction 1500 cc Lines: Peripheral IV Code status: Full code This case was discussed with my attending physician, Dr. Sultana, and senior resident, Dr Ballesteros. Even though this this note was carefully revised there may still be minor errors in switchboard receptionist due to voice recognition software. Jozef Crisostomo DO PGY I Attending Provider Attestation/Addendum I have discussed and was present for the essential components of the history, physical examination, diagnosis, and treatment plan with the resident. I agree with the patient's care as documented by the resident and amended herein by me. Per Sultana DO. Although this document has been carefully reviewed, there may still be some phonetic and other typographical errors. These errors are purely grammatical due to imperfections in the software program and should not be construed in any way to compromise the substance of the patient's medical care during this visit.
[2025-05-31 16:51] LABS: Basophils # (Auto) 0.0 Thou/mm3 (0.0-0.2); Basophils % (Auto) 0 % (0-2.5); Eosinophils # (Auto) 0.0 Thou/mm3 (0.0-0.5); Eosinophils % (Auto) 0 % (0-10); Hematocrit 40.6 % (41.0-53.0); Hemoglobin 11.8 g/dL (13.5-16.0); Immature Granulocytes Auto 0.33 Thou/mm3 (0.00-0.00); Lymphocytes # (Auto) 0.8 Thou/mm3 (1.0-4.8); Lymphocytes % (Auto) 5 % (10-50); Mean Corpuscular HGB Conc 29.1 g/dl (31.0-37.0); Mean Corpuscular Hemoglobin 25.9 pg (25.0-35.0); Mean Corpuscular Volume 89 fL (80-100); Monocytes # (Auto) 0.7 Thou/mm3 (0.0-0.8); Monocytes % (Auto) 5 % (0-12); Neutrophils # (Auto) 13.2 Thou/mm3 (1.8-7.7); Neutrophils % (Auto) 88 % (37-80); Nucleated Red Blood Cell # 0.03 Thou/mm3 (0.00-0.00); Nucleated Red Blood Cell % 0 /100 WBC (0); Platelet Count 94 Thou/mm3 (140-440); RDW Standard Deviation 67.5 fL (35.1-43.9); Red Blood Count 4.56 Miln/mm3 (4.50-5.90); White Blood Count 15.0 Thou/mm3 (3.8-10.6)
[2025-05-31 17:06] LABS: Lactate (Lactic Acid) 4.0 mMol/L (0.4-2.0)
[2025-05-31 17:11] LABS: Reflex Lactate? Y
[2025-05-31 17:12] LABS: Alanine Aminotransferase 172 U/L (10-49); Albumin, Serum 3.5 gm/dL (3.4-4.8); Albumin/Globulin Ratio 1.1 (1.2-2.2); Alkaline Phosphatase 96 U/L (46-116); Anion Gap 12 (7-16); Aspartate Amino Transferase 92 U/L (0-34); BUN/Creatinine Ratio 22 Ratio (12-20); Bilirubin,Total 1.2 mg/dL (0.3-1.2); Blood Urea Nitrogen 24 mg/dL (9-23); Calcium 8.7 mg/dL (8.3-10.6); Calcium (Corrected) 9.1 mg/dL (8.5-10.1); Carbon Dioxide 23.4 mMol/L (20.0-31.0); Chloride 107 mMol/L (98-107); Creatinine (Component) 1.1 mg/dL (0.6-1.3); Estimated Creatinine Clearance 76.4 mL/min (>60); Globulin 3.3 gm/dL (2.3-3.5); Glucose 97 mg/dL (74-106); Osmolality,Calculated 287 (275-295); Potassium 4.0 mMol/L (3.4-5.1); Sodium 142 mMol/L (136-145); Total Protein 6.8 gm/dL (5.7-8.2); eGFR > 60 See Note
[2025-05-31 17:26] LABS: Base Excess 1 (-3-3); HCO3 23 mEq/L (20-26); Inspired Oxygen, FIO2 60 %; O2 Saturation 88 % (91-98); PCO2 28 mmHg (32.0-48.0); pH, Arterial 7.52 (7.35-7.45)
[2025-05-31 17:30] LABS: Allen Test Performed/OK; PO2 50 mmHg (83-108); Puncture Site Right Radial
[2025-05-31 19:47] LABS: Reflex Lactate? Y
[2025-05-31 20:09] LABS: Lactate (Lactic Acid) 3.6 mMol/L (0.4-2.0)
[2025-05-31 22:42] LABS: Lactate (Lactic Acid) 4.2 mMol/L (0.4-2.0)
[2025-05-31 23:01] LABS: Reflex Lactate? Y
[2025-05-31 23:07] LABS: Vancomycin,Trough 16.6 mcg/mL (5.0-10.0)
[2025-05-31 23:58] LABS: Base Excess 0 (-3-3); HCO3 22 mEq/L (20-26); Inspired Oxygen, FIO2 90 %; O2 Saturation 91 % (91-98); PCO2 29 mmHg (32.0-48.0); pH, Arterial 7.49 (7.35-7.45)
[2025-06-01] VITALS (30 sets, daily range): BP systolic 81–122; BP diastolic 61–93; PULSE 95–142; RESP 12–34; TEMP 36.3–36.8; O2SAT 66–96; BMI 23.9
[2025-06-01] LABS: Allen Test Performed/OK; PO2 57 mmHg (83-108); Puncture Site Right Radial
[2025-06-01] MEDS: LEVALBUTEROL RT 1.25 MG/0.5 ML NEBU INH ×5 (00:07→18:47)
[2025-06-01] MEDS: IPRATROPIUM RT 0.5 MG/ 2.5 ML NEBU INH ×5 (00:07→18:47)
[2025-06-01 01:26] LABS: Lactate (Lactic Acid) 5.1 mMol/L (0.4-2.0)
--- NOTE | 2025-06-01 01:31 | XR_ITS ---
EXAMINATION: AP chest single view TECHNIQUE: AP portable semiupright chest single view Date and time: June 01, 2025, 0146 hours, comparison May 31, 2025 INDICATIONS: Chronic SOB. FINDINGS: Pulmonary mass in the right lung again depicted extending to the right mediastinum Significant right pleural fluid Mild retrocardiac contour Diffuse severe left lung pneumonia again noted IMPRESSION: Severe diffuse left lung pneumonia again noted
[2025-06-01 01:35] LABS: Reflex Lactate? Y
[2025-06-01] MEDS: FUROSEMIDE INJ 10 MG/ML VIAL 2 ML 20 MG IVP (02:00)
[2025-06-01] MEDS: SODIUM CHLORIDE RT SOL 0.9% 3 ML NEBU INH (02:02)
[2025-06-01] MEDS: MIDAZOLAM INJ 1 MG/ML VIAL 2 ML IVP (02:36)
[2025-06-01 04:20] LABS: Reflex Lactate? Y
[2025-06-01 05:07] LABS: Lactic Acid, 3 HR 4.7 mMol/L (0.4-2.0)
[2025-06-01 05:12] LABS: Base Excess 1 (-3-3); HCO3 23 mEq/L (20-26); Inspired Oxygen, FIO2 60 %; O2 Saturation 88 % (91-98); PCO2 27 mmHg (32.0-48.0); pH, Arterial 7.53 (7.35-7.45)
[2025-06-01 05:13] LABS: Allen Test Performed/OK; Puncture Site Right Radial
[2025-06-01 05:14] LABS: PO2 51 mmHg (83-108)
[2025-06-01 05:30] LABS: Basophils # (Auto) 0.0 Thou/mm3 (0.0-0.2); Basophils % (Auto) 0 % (0-2.5); Eosinophils # (Auto) 0.0 Thou/mm3 (0.0-0.5); Eosinophils % (Auto) 0 % (0-10); Hematocrit 41.6 % (41.0-53.0); Hemoglobin 12.2 g/dL (13.5-16.0); Immature Granulocytes Auto 0.50 Thou/mm3 (0.00-0.00); Lymphocytes # (Auto) 0.6 Thou/mm3 (1.0-4.8); Lymphocytes % (Auto) 4 % (10-50); Mean Corpuscular HGB Conc 29.3 g/dl (31.0-37.0); Mean Corpuscular Hemoglobin 26.1 pg (25.0-35.0); Mean Corpuscular Volume 89 fL (80-100); Monocytes # (Auto) 0.8 Thou/mm3 (0.0-0.8); Monocytes % (Auto) 5 % (0-12); Neutrophils # (Auto) 14.7 Thou/mm3 (1.8-7.7); Neutrophils % (Auto) 88 % (37-80); Nucleated Red Blood Cell # 0.04 Thou/mm3 (0.00-0.00); Nucleated Red Blood Cell % 0 /100 WBC (0); Platelet Count 90 Thou/mm3 (140-440); RDW Standard Deviation 67.8 fL (35.1-43.9); Red Blood Count 4.67 Miln/mm3 (4.50-5.90); White Blood Count 16.7 Thou/mm3 (3.8-10.6)
[2025-06-01] MEDS: PIPER/TAZO 3.375 GM PREMIX 3.375 GM/50 ML BAG IV (05:37)
[2025-06-01 05:42] LABS: Partial Thromboplastin Time 48.1 Seconds (22.0-36.0)
[2025-06-01 05:48] LABS: Alanine Aminotransferase 154 U/L (10-49); Albumin, Serum 3.3 gm/dL (3.4-4.8); Albumin/Globulin Ratio 1.0 (1.2-2.2); Alkaline Phosphatase 98 U/L (46-116); Anion Gap 13 (7-16); Aspartate Amino Transferase 76 U/L (0-34); BUN/Creatinine Ratio 20 Ratio (12-20); Bilirubin,Total 1.1 mg/dL (0.3-1.2); Blood Urea Nitrogen 20 mg/dL (9-23); Calcium 9.1 mg/dL (8.3-10.6); Calcium (Corrected) 9.7 mg/dL (8.5-10.1); Carbon Dioxide 24.5 mMol/L (20.0-31.0); Chloride 104 mMol/L (98-107); Creatinine (Component) 1.0 mg/dL (0.6-1.3); Estimated Creatinine Clearance 84.0 mL/min (>60); Globulin 3.2 gm/dL (2.3-3.5); Glucose 96 mg/dL (74-106); Magnesium 2.0 mg/dL (1.6-2.6); Osmolality,Calculated 283 (275-295); Phosphorous 2.9 mg/dL (2.4-5.1); Potassium 3.4 mMol/L (3.4-5.1); Sodium 141 mMol/L (136-145); Total Protein 6.5 gm/dL (5.7-8.2); eGFR > 60 See Note
--- NOTE | 2025-06-01 06:00 | XR_ITS ---
EXAMINATION: AP chest single view TECHNIQUE: AP portable semiupright chest single view Date and time: June 01, 2025, 0608 hours, comparison June 01, 2025 0146 hours INDICATIONS: History pulmonary neoplasm and coughing congestion this week with large left pleural effusion FINDINGS: Again noted large pulmonary mass in the right upper lobe with right pleural fluid Mild enlargement cardiac contour Severe diffuse left lung pneumonia Moderate osteopenia IMPRESSION: No improvement in severe pneumonia left lung Possible associated mild heart failure
[2025-06-01] MEDS: HEPARIN SOD INJ 5000 UNIT/ML VIAL 3200 UNIT IVP (07:58)
[2025-06-01] MEDS: ALBUMIN HUMAN-KJDA 25% IVPB 25 GM/100 ML BTL IV (08:13)
[2025-06-01] MEDS: NICOTINE PATCH 21 MG/24 HR PATCH.TD24 TOP (08:13)
[2025-06-01] MEDS: FUROSEMIDE INJ 10 MG/ML 4ML VIAL 40 MG IVP (08:13)
[2025-06-01] MEDS: POTASSIUM CHLORIDE 10% 20 MEQ/15 ML UDC 60 MEQ PO (08:14)
[2025-06-01] MEDS: LEVOFLOXACIN/D5W 750MG IVPB 750 MG/150 ML BAG 100 MG IV (10:43)
[2025-06-01] MEDS: SPIRONOLACTONE 25 MG TABLET PO (10:43)
--- NOTE | 2025-06-01 11:47 | XR_ITS ---
EXAMINATION: AP chest single view TECHNIQUE: AP portable sitting chest single view Date and time: June 01, 2025, 1152 hours, comparison June 01, 2025 0608 hours INDICATIONS: Post thoracentesis FINDINGS: No pneumothorax post thoracentesis Pulmonary mass in the right upper lobe again noted Diffuse left lung pneumonia depicted Mild enlargement cardiac contour IMPRESSION: No pneumothorax post thoracentesis
[2025-06-01 12:15] LABS: LDH (Lactate Dehydrogenase) 304 U/L (120-246)
[2025-06-01 12:45] LABS: Amylase,Pleural Fluid 24 IU/L; Glucose,Pleural Fluid 91 mg/dL; LDH,Pleural Fluid 441 IU/L; Protein Total,Pleural Fluid 3.3 g/dL
--- NOTE | 2025-06-01 12:55 | ESPR_ITS ---
<Statement entered by Rei Pepe MD - 06/01/25 19:10> I have reviewed the note and agree with the resident's assessment & plan with exceptions as below. I have personally reviewed labs, imaging, home meds/prior records, examined the patient, formulated and discussed management plan with my attending Rei Pepe PGY2 Disclaimer: Even though this this note was dictated by speech recognition and even though it was carefully revised there may still be minor errors in it consulting director due to voice recognition software. Documentation for date of: 06/01/25 Subjective Subjective Interval history: History of present illness: Patient is a 64 year old male with past medical history of schizophrenia, COPD on supplemental home oxygen, chronic active smoker greater than 40 pack years and status post right inguinal hernia repair in 2018 who presented to ED on 05/29/25 for shortness of breath. Patient was admitted telemetry for acute on chronic hypoxic respiratory failure, pleural effusion, pneumonia and pulmonary emboli. Rapid response called at 1038 today for dyspnea and agitation, was tachypnic and saturation dropped to 87% on BiPAP but was protecting airway. Given Haldol 5 mg x1 and Versed 2 mg x1 with improvement in agitation, as well as albuterol x1 and levalbuterol x1 with improvement of O2 saturation. Another rapid response called at 1133 for BP 74/47 MAP 56. Patient was still protecting airway and had good circulation. Given IV albumin 25g, MAPs improved and maintaining MAP 67. Patient will be transferred to ICU for worsening acute respiratory distress. 06/01/25: Patient seen and assessed at bedside. Overnight, attempted to transition to high flow but desaturated to low 80s. He became anxious and tachypnc when placed back on BiPAP, given Versed x1. Repeat CXR suggested worsened pulmonary edema, was given IV Lasix 20 with good urine output. Given another IV Lasix 40 x1. WBC continues to be elevated, likely in setting of infection versus malignancy. Repeat CXR in the morning showed re-accumulation of pleural fluid in right lung. Thoracentesis performed, removed 1200 mL red tinged fluid, sent for cytology and pleural studies. Lactic acid continues to be elevated, likely type B and persistent in setting of cirrhosis. Pleural fluid culture 05/29 grew Bacillus (likely cereus), transitioned abx to levofloxacin and discontinued vanc, Zosyn, and azithromycin. Potassium 3.4, repleted with 60 mEq KCl liquid. Ordered CT lung biopsy per oncology. Exam Vital Signs Temp Pulse Resp BP Pulse Ox O2 Del Method O2 Flow Rate 97.8 F 106 H 24 H 110/77 94 L BiPAP 35 06/01/25 04:00 06/01/25 12:35 06/01/25 12:35 06/01/25 10:43 06/01/25 12:35 05/31/25 16:30 06/01/25 12:35 FiO2 60 06/01/25 12:35 Narrative Exam Physical Exam General: Awake and in no acute distress. Conversational and non-toxic appearing. Mildly anxious. HEENT: PERRLA. Normocephalic, atraumatic, mucous membranes moist. Heart: Regular rate and rhythm, normal S1 and S2, no murmurs appreciated. Lungs: Decreased breath sounds with intermittent crackles in right lower lobe. Clear in all other lobes. Abdomen: Soft, mildly distended, nontender, positive bowel sounds. No guarding or rebound tenderness. Mild ascites. : Aguilar in place. Large left testicular mass, no discoloration or tenderness. Neurologic: Alert and oriented x3, no gross neurological deficit, and patient able to move all 4 extremities. Extremities: 2+ pitting edema extending up to hips. Skin: No rash or ecchymoses. Objective Labs 06/02/25 04:20 06/02/25 04:20 Labs: Laboratory Results - last 24 hr 05/31/25 05/31/25 05/31/25 14:02 16:37 17:16 WBC 15.0 H RBC 4.56 Hgb 11.8 L Hct 40.6 L MCV 89 MCH 25.9 MCHC 29.1 L RDW Std Deviation 67.5 H Plt Count 94 L Neut % (Auto) 88 H Lymph % (Auto) 5 L Kane % (Auto) 5 Eos % (Auto) 0 Baso % (Auto) 0 Neut # (Auto) 13.2 H Lymph # (Auto) 0.8 L Kane # (Auto) 0.7 Eos # (Auto) 0.0 Baso # (Auto) 0.0 Immature Gran # (Auto) 0.33 H Absolute Nucleated RBC 0.03 H Immature Gran % 2 H Nucleated RBC % 0 APTT Puncture Site Right Radial ABG pH 7.52 H D ABG pCO2 28 L ABG pO2 50 L* D ABG HCO3 23 ABG O2 Saturation 88 L ABG Base Excess 1 FiO2 60 Sodium 142 Potassium 4.0 Chloride 107 Carbon Dioxide 23.4 Anion Gap 12 BUN 24 H Creatinine 1.1 Estim Creat Clear Calc 76.4 eGFR > 60 BUN/Creatinine Ratio 22 H Glucose 97 Calculated Osmolality 287 Lactic Acid 4.5 H* 4.0 H Calcium 8.7 Corrected Calcium 9.1 Phosphorus Magnesium Total Bilirubin 1.2 AST 92 H ALT 172 H Alkaline Phosphatase 96 Lactate Dehydrogenase Total Protein 6.8 Albumin 3.5 Globulin 3.3 Albumin/Globulin Ratio 1.1 L Pleural Total Protein Pleural LDH Pleural Glucose Pleural Amylase Vancomycin Trough 05/31/25 05/31/25 05/31/25 19:50 22:19 23:51 WBC RBC Hgb Hct MCV MCH MCHC RDW Std Deviation Plt Count Neut % (Auto) Lymph % (Auto) Kane % (Auto) Eos % (Auto) Baso % (Auto) Neut # (Auto) Lymph # (Auto) Kane # (Auto) Eos # (Auto) Baso # (Auto) Immature Gran # (Auto) Absolute Nucleated RBC Immature Gran % Nucleated RBC % APTT Puncture Site Right Radial ABG pH 7.49 H ABG pCO2 29 L ABG pO2 57 L* ABG HCO3 22 ABG O2 Saturation 91 ABG Base Excess 0 FiO2 90 Sodium Potassium Chloride Carbon Dioxide Anion Gap BUN Creatinine Estim Creat Clear Calc eGFR BUN/Creatinine Ratio Glucose Calculated Osmolality Lactic Acid 3.6 H 4.2 H* Calcium Corrected Calcium Phosphorus Magnesium Total Bilirubin AST ALT Alkaline Phosphatase Lactate Dehydrogenase Total Protein Albumin Globulin Albumin/Globulin Ratio Pleural Total Protein Pleural LDH Pleural Glucose Pleural Amylase Vancomycin Trough 16.6 H 06/01/25 06/01/25 06/01/25 01:13 04:20 05:00 WBC 16.7 H RBC 4.67 Hgb 12.2 L Hct 41.6 MCV 89 MCH 26.1 MCHC 29.3 L RDW Std Deviation 67.8 H Plt Count 90 L Neut % (Auto) 88 H Lymph % (Auto) 4 L Kane % (Auto) 5 Eos % (Auto) 0 Baso % (Auto) 0 Neut # (Auto) 14.7 H Lymph # (Auto) 0.6 L Kane # (Auto) 0.8 Eos # (Auto) 0.0 Baso # (Auto) 0.0 Immature Gran # (Auto) 0.50 H Absolute Nucleated RBC 0.04 H Immature Gran % 3 H Nucleated RBC % 0 APTT 48.1 H Puncture Site ABG pH ABG pCO2 ABG pO2 ABG HCO3 ABG O2 Saturation ABG Base Excess FiO2 Sodium 141 Potassium 3.4 D Chloride 104 Carbon Dioxide 24.5 Anion Gap 13 BUN 20 Creatinine 1.0 Estim Creat Clear Calc 84.0 eGFR > 60 BUN/Creatinine Ratio 20 Glucose 96 Calculated Osmolality 283 Lactic Acid 5.1 H* 4.7 H* Calcium 9.1 Corrected Calcium 9.7 Phosphorus 2.9 Magnesium 2.0 Total Bilirubin 1.1 AST 76 H ALT 154 H Alkaline Phosphatase 98 Lactate Dehydrogenase 304 H Total Protein 6.5 Albumin 3.3 L Globulin 3.2 Albumin/Globulin Ratio 1.0 L Pleural Total Protein Pleural LDH Pleural Glucose Pleural Amylase Vancomycin Trough 06/01/25 06/01/25 05:01 12:05 WBC RBC Hgb Hct MCV MCH MCHC RDW Std Deviation Plt Count Neut % (Auto) Lymph % (Auto) Kane % (Auto) Eos % (Auto) Baso % (Auto) Neut # (Auto) Lymph # (Auto) Kane # (Auto) Eos # (Auto) Baso # (Auto) Immature Gran # (Auto) Absolute Nucleated RBC Immature Gran % Nucleated RBC % APTT Puncture Site Right Radial ABG pH 7.53 H ABG pCO2 27 L ABG pO2 51 L* ABG HCO3 23 ABG O2 Saturation 88 L ABG Base Excess 1 FiO2 60 Sodium Potassium Chloride Carbon Dioxide Anion Gap BUN Creatinine Estim Creat Clear Calc eGFR BUN/Creatinine Ratio Glucose Calculated Osmolality Lactic Acid Calcium Corrected Calcium Phosphorus Magnesium Total Bilirubin AST ALT Alkaline Phosphatase Lactate Dehydrogenase Total Protein Albumin Globulin Albumin/Globulin Ratio Pleural Total Protein 3.3 Pleural LDH 441 Pleural Glucose 91 Pleural Amylase 24 Vancomycin Trough ABG Interpretation ABG results: 05/29/25 05/31/25 05/31/25 05:33 10:53 17:16 ABG pH 7.38 7.30 L 7.52 H D ABG pCO2 24 L 33 28 L ABG pO2 57 L* 125 H D 50 L* D ABG HCO3 14 L 16 L 23 ABG O2 Saturation 87 L 99 H 88 L ABG Base Excess -9 L -9 L 1 05/31/25 06/01/25 23:51 05:01 ABG pH 7.49 H 7.53 H ABG pCO2 29 L 27 L ABG pO2 57 L* 51 L* ABG HCO3 22 23 ABG O2 Saturation 91 88 L ABG Base Excess 0 1 Quality Measures Quality Measures VTE prophylaxis Assessment & Plan Assessment Current Active Medications: Generic Name Dose Route Start Last Admin Trade Name Freq PRN Reason Stop Dose Admin Acetaminophen 325 mg 05/29/25 12:07 Acetaminophen 325 Mg Tablet PO 06/28/25 12:06 Q6H PRN Fever >101.5, Pain 1-3 Hydrocodone Bitart/Acetaminophen 1 tab 05/31/25 10:37 Hydrocodone/Apap 5/325 Tablet PO 06/05/25 10:36 Q6HR PRN PAIN SCALE 4-10(Mod-Sev Albuterol/Ipratropium 3 ml 05/29/25 12:07 Albuterol/Ipratropium (Duoneb) Rt Becky 3 Ml Nebu INH 06/28/25 12:06 Q2HR PRN SHORTNESS OF BREATH OR WHEEZE Heparin Sodium/Dextrose 25,000 unit in 250 mls @ 14.696 mls/hr 05/29/25 12:15 06/01/25 08:02 Heparin In D5w Ivpb IV 06/12/25 12:14 20 units/kg/hr .Q17H1M COTY 16.329 mls/hr Protocol Titration 18 UNITS/KG/HR Albumin Human 25 gm in 100 mls @ 100 mls/hr 05/31/25 11:04 06/01/25 08:13 Albuminex 25% Ivpb IV 06/03/25 11:03 100 mls/hr QDAY COTY Administration Levofloxacin/Dextrose 750 mg in 150 mls @ 100 mls/hr 06/01/25 10:30 06/01/25 10:43 Levaquin Ivpb IV 06/08/25 10:29 100 mls/hr QDAY COTY Administration Ipratropium [place] 0.5 mg 05/29/25 13:00 06/01/25 12:35 Ipratropium Rt 0.5 Mg/ 2.5 Ml Nebu INH 06/28/25 12:59 0.5 mg Q6HRRT COTY Administration Levalbuterol HCl 1.25 mg 05/29/25 13:00 06/01/25 12:35 Levalbuterol Rt 1.25 Mg/0.5 Ml Nebu INH 06/28/25 12:59 1.25 mg Q6HRRT COTY Administration Nicotine 21 mg 05/29/25 12:15 06/01/25 08:13 Nicotine Patch 21 Mg/24 Hr Patch.Td24 TOP 06/28/25 12:14 21 mg QDAY COTY Administration Ondansetron HCl 4 mg 05/29/25 12:07 Ondansetron Inj 2 Mg/Ml Inj 2 Ml IVP 06/28/25 12:06 Q6H PRN NAUSEA OR VOMITING Protocol Pantoprazole Sodium 40 mg 05/29/25 12:15 06/01/25 08:13 Pantoprazole Inj 40 Mg Vial IVP 06/28/25 12:14 40 mg QDAY COTY Administration Rifaximin 550 mg 06/01/25 10:30 06/01/25 10:43 Rifaximin 550 Mg Tablet PO 06/08/25 10:29 550 mg BID COTY Administration Sodium Chloride 3 ml 05/31/25 10:52 05/31/25 11:00 Sodium Chloride Rt Becky 0.9% 3 Ml Nebu INH 06/30/25 10:51 3 ml PRN PRN Administration SOLN Spironolactone 25 mg 06/01/25 10:30 06/01/25 10:43 Spironolactone 25 Mg Tablet PO 07/01/25 10:29 25 mg QDAY COTY Administration Plan Patient is a 64 year old male with past medical history of schizophrenia, COPD on supplemental home oxygen, chronic active smoker greater than 40 pack years, and status post right inguinal hernia repair in 2018 who presented to ED on 05/29/25 for shortness of breath. Patient was admitted telemetry for acute on chronic hypoxic respiratory failure, pleural effusion, pneumonia and pulmonary emboli, upgraded to ICU on 05/31 for worsening acute on chronic respiratory distress. Downgraded back to telemetry as patient has stabilized and tolerating high flow. 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 Wanted to removed the BiPAP mask. Treatment: - Not currently on any psych medications - Hydroxyzine as needed for agitation Treatment follow up: - Follow-up with family or PCP regarding diagnosis - Avoid overuse of benzodiazepines as may contribute to decreased respiratory drive [facility] #Hypotension (resolved) DDx: Sepsis, cirrhosis, iatrogenic Diagnostic workup: - MAP dropped to 57 with systolic in 80s during second rapid response, possibly iatrogenic Treatment: - S/p IV albumin 25 g x1 - Did not require pressors Treatment follow-up: - Continue to monitor blood pressure Pulm #Acute on chronic hypoxic respiratory failure #? COPD exacerbation #History of COPD Likely secondary to pneumonia Diagostic work up; - Chronic smoking history - Presented with shortness of breath requiring 10 L supplemental oxygen at home. Per chart review patient usually uses a liters at home per brother. - Used rescue inhaler use for the past 2 weeks prior to admission -Lactic 9.0, Pro-Antony 1.33, WBC 14 with neutrophil dominance -CT showed bilateral pneumonia and left upper lobe and right lower lobe Treatment: - S/p BiPAP, tolerated high flow NC - Discontinue azithromycin, Zosyn and Vancomycin (05/29?06/01) - Start IV levofloxacin (06/01- -Levalbuterol/ipratropium every 6 hours Treatment follow up: - DuoNebs as needed - Wean oxygen as tolerated #Bilateral pulmonary embolisms Likely secondary to hypercoagable state in setting of malignancy Diagnostic workup: - Presented with shortness of breath requiring 10 L supplemental oxygen at home. 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 -S/p thoracentesis, -750 cc straw colored fluid -Per lights criteria, fluid is exudative, likely secondary to malignancy - Pleural fluid culture 05/29 grew Bacillus (likely cereus) Treatment: - S/p repeat right thoracentesis, -1200 cc red tinged fluid - Consulted oncology, appreciate recommendations Treatment follow-up: - Ordered CT head with and without contrast to assess for possible metastasis - Ordered CT lung biopsy per oncology recommendations - Follow-up repeat pleural studies and fluid cytology GI #Cirrhosis #Transaminitis (improving) #Hyperbilirubinemia #Anasarca Likely secondary to history of alcohol use Diagnostic work up: - Per chart review, patient consumed moderate amount of alcohol for many years -Has elevated INR and thrombocytopenia, indicative of chronic pathology -On exam, mild ascites and anasarca, improved s/p diuresis -AST 400s -> 124 - ALT 300s -> 211 Treatment: - S/p IV Lasix 20 x1, 40 x1 - Start spiranolactone 25 mg daily - Start rifaximin 550 mg BID Treatment follow up: - Follow hepatitis panel - Recommend patient follow up outpatient with hepatology/GI Renal #Lactic acidosis type A & B (improving) -Multifactorial: Type A in setting of hypoxia versus type B in setting of cirrhosis/malignancy Diagnostic workup: - Lactic acid 9 -> 3.4, likely persistent in setting of cirrhosis Treatment: - No active treatment at this time Treatment follow-up - none #HAGMA (resolved) Heme/onc #Right upper lung tumor Diagnostic workup: -CT findings as above -Per lights criteria, fluid is exudative, likely secondary to malignancy versus bacterial infection - Pleural fluid culture 05/29 grew Bacillus (likely cereus) Treatment: -Oncology consulted, appreciate recommendations Treatment follow-up: - Ordered CT head with and without contrast to assess for possible metastasis - Ordered CT lung biopsy per oncology recommendations - Follow-up repeat pleural studies and fluid cytology #SURYA Diagnostic workup: -Hemoglobin 13.4 -Iron studies showed low iron and iron saturation, ferritin and TIBC within normal limits Treatment: -No active treatment at this time Treatment follow-up: -Consider starting on iron once infection cleared #Leukocytosis, reactive versus infectious Likely infectious in setting of Bacillus in pleural fluid Diagnostic workup: - WBC 14 -> 16 -> 15 - Influenza A&B, COVID negative - UA clean - CT showed bilateral pneumonia and left upper lobe and right lower lobe - Sputum Gram stain showed rare WBCs, 1+ GPC, 1+ GNR - Pleural fluid culture 05/29 grew Bacillus (likely cereus) Treatment: - Discontinued azithromycin, Zosyn and vancomycin - Started on IV levofloxacin Treatment follow-up: - Monitor a.m. CBC ID #? Parapneumonic effusion Diagnostic workup: - Presented with worsening breathing and increased oxygen requirements. No fevers at home. - WBC 14 -> 16 -> 15 - Influenza A&B, COVID negative - UA clean - CT showed bilateral pneumonia and left upper lobe and right lower lobe - Sputum Gram stain showed rare WBCs, 1+ GPC, 1+ GNR - Pleural fluid culture 05/29 grew Bacillus (likely cereus) Treatment: - Discontinued azithromycin, Zosyn and vancomycin - Started on IV levofloxacin Treatment follow-up: - Monitor a.m. CBC - Wean oxygen as tolerated - Follow up repeat pleural studies and cytology ICU Health maintenance: Mechanical ventilation: None Sedation: none Diet: NPO DVT prophylaxis: Heparin drip GI prophylaxis: none Aguilar: None Lines: PIV Antibiotics: Levofloxacin IV CODE STATUS: Full Patient plan of care was discussed with the senior resident, Dr. Saunders, and attending physician, Dr. Jolly. Jeniffer Wilkins DO, PGY-1 Attending Provider Attestation/Addendum Patient seen and examined, discussed with resident team. In brief is a 64-year-old male admitted to the ICU for acute hypoxic respiratory failure requiring BiPAP in the 100% FiO2. There are no acute overnight events and the patient is currently doing well. Was able to decrease his FiO2 to 60%. He does have a new lung mass as well as pleural effusion. On chest x-ray today it seems he has increasing pleural effusion on the right. He did undergo a thoracentesis a couple of days ago. Will evaluate for a pocket to repeat thoracentesis for pleural effusion. Patient is on a heparin drip for bilateral PE. Currently he is doing well and stable for downgrade. Case discussed with ICU team labs, imaging records reviewed Approximately 40 minutes required evaluation, exam, review, dimension, discussion formulation of plan of care for this acutely ill patient
[2025-06-01 13:02] LABS: Pleural Fluid WBC 6168 /cmm
[2025-06-01 13:03] LABS: Pleural Fluid Color Red
[2025-06-01 13:04] LABS: Pleural Fluid Appearance Cloudy; Pleural Fluid Mononuclear 24 %; Pleural Fluid Polynuclear 76 %; Pleural Fluid RBC 13000 /cmm
--- NOTE | 2025-06-01 14:28 | ESOP_ITS ---
PROCEDURES: Procedure Date / Time 06/01/25 1115 Thoracentesis Indication(s): symptomatic Pleural Effusion Informed consent obtained from: patient Time out done, and the following verified: correct patient, side and site, procedure, patient position and implants and/or equipment Ultrasound used: Yes Procedure location: rt. post pleural space Amount pleural fluid removed (ml): 1,200 EBL(ml): 2 Procedure comment: PROCEDURE SUMMARY: Informed consent was obtained from the patient with consent form signed and placed in the chart. Bedside US was performed which identified an appropriate pocket sufficient for pleural drainage on the right side. The appropriate side was confirmed and marked with syringe suction. Alcohol-based chief environmental commitment officer was used, surgical hair net was worn, and mask was worn. Sterile gown and sterile gloves were donned in sterile technique and kept on throughout the procedure. The patient was prepped and draped in a sterile manner using chlorhexidine scrub. 1% lidocaine was used to anesthesize the skin, subcutaneous tissue, superior aspect of the rib periosteum and parietal pleura. A finder needle was then introduced over the superior aspect of the rib to locate the pleural fluid; straw-colored pleural fluid was aspirated at a depth of approximately 1 cm. The Safe-t-C entesis needle was then introduced through the skin incision into the pleural space using negative aspiration pressure. The thoracentesis catheter was then threaded without difficulty. 50 ml of red tinged fluid was removed without difficulty and part was sent for pleural fluid studies. Pleural fluid was subsequently drained into an evacuation suction bottle with the total amount measuring 1200 ml. The catheter was then removed with pressure held to the site until no further bleeding or leakage was noted. No immediate complications were noted during the procedure and the patient tolerated the procedure very well. A post-procedure chest X-ray is pending at the time of this note. The fluid will be sent for studies including LDH, amylase, glucose, protein, cell count, culture, anaerobic culture, and gram stain. Estimated blood loss is 2 mL. Procedure completed with the supervising attending pie filling mixer, Dr. Jolly. Jeniffer Wilkins, PGY-1 Attending note: I was present and available for the entire procedure and assisted with elliott aspects. Follow-up chest x-ray did not show pneumothorax and we were able to decrease the patient's FiO2 from 60 to 40% postthoracentesis.
[2025-06-01] MEDS: Heparin/D5w 25K 250 ML Ivpb 25,000 UNIT/250 ML BAG 16.329 UNIT IV (14:38)
--- NOTE | 2025-06-01 14:41 | PC.SS ---
Public Relations Player (MATTHEW) Arcelia met with the patient at bedside to complete an initial assessment and discuss a discharge plan. Patient is alert and oriented to person and place. Patient is on a high-flow nasal cannula. The patient was hard to understand and a poor historian. The patient was guarded and not provided much information. The patient was unable to engage in a meaningful conversation. Patient refused to name anyone as a surrogate medical decision maker and stated that everyone had , and he has no family left. The patient also reports living in [place] [id number]. It is unclear how much of this information is true. SS to f/u once the patient is more stable to discuss discharge plans. Discharge rounds: On high-flow nasal cannula
[2025-06-01 15:01] LABS: Partial Thromboplastin Time 87.1 Seconds (22.0-36.0)
--- NOTE | 2025-06-01 15:07 | ESPR_ITS ---
<Statement entered by Harley Matson MD - 06/01/25 17:56> Patient seen and examined at bedside. I discussed and supervised with the pr internship physician who took care of this patient. I personally saw and examined the patient. I agree with most of the assessment and plan. ICU downgrade, s/p thoracentesis. Remains on HFNC. Previous thoracentesis grew Bacillus, patient on levofloxacin. Repeat pleural fluid studies ordered. Noted to have R lung mass, CT biopsy ordered, pending. CT head to rule out metastasis. Heparin drip for bilateral PEs. Plan of care discussed with attending Dr. Sultana. Harley Matson MD PGY-2 Documentation for date of: 06/01/25 Subjective Subjective Interval history: Patient was downgraded from ICU after stabilization of respiratory status and blood pressure. Patient satting 93% on 30L via HFNC overnight. Patient denies shortness of breath or chest pain. HR around 110, but as there are prominent P waves on EKG, likely to be PACs. CXR in the morning had shown re-accumulation of pleural fluid in right lung. Thoracentesis performed, with the removal of 1200 mL red tinged fluid, sent for cytology and pleural studies. Lactic acid continues to be elevated, likely type B and persistent in setting of cirrhosis. Pleural fluid culture 05/29 grew Bacillus (likely cereus), patient on levofloxacin. Ordered CT lung biopsy per oncology. Exam Vital Signs Temp Pulse Resp BP Pulse Ox O2 Del Method O2 Flow Rate 98.3 F 113 H 24 H 90/70 93 L High Flow Nasal Cannula 30 06/01/25 12:00 06/01/25 14:02 06/01/25 14:02 06/01/25 13:01 06/01/25 14:02 06/01/25 12:00 06/01/25 14:02 FiO2 40 06/01/25 14:02 Narrative Exam Physical Exam General: Awake and in no acute distress. Conversational and non-toxic appearing. Mildly anxious. HEENT: PERRLA. Normocephalic, atraumatic, mucous membranes moist. Heart: Regular rate and rhythm, normal S1 and S2, no murmurs appreciated. Lungs: Decreased breath sounds with intermittent crackles in right lower lobe. Clear in all other lobes. Abdomen: Soft, mildly distended, nontender, positive bowel sounds. No guarding or rebound tenderness. Mild ascites. : Aguilar in place. Large left testicular mass, no discoloration or tenderness. Neurologic: Alert and oriented x3, no gross neurological deficit, and patient able to move all 4 extremities. Extremities: 2+ pitting edema extending up to hips. Skin: No rash or ecchymoses. Objective Labs 06/03/25 02:06 06/03/25 02:06 Labs: Laboratory Results - last 24 hr 05/31/25 05/31/25 05/31/25 16:37 17:16 19:50 WBC 15.0 H RBC 4.56 Hgb 11.8 L Hct 40.6 L MCV 89 MCH 25.9 MCHC 29.1 L RDW Std Deviation 67.5 H Plt Count 94 L Neut % (Auto) 88 H Lymph % (Auto) 5 L Early % (Auto) 5 Eos % (Auto) 0 Baso % (Auto) 0 Neut # (Auto) 13.2 H Lymph # (Auto) 0.8 L Early # (Auto) 0.7 Eos # (Auto) 0.0 Baso # (Auto) 0.0 Immature Gran # (Auto) 0.33 H Absolute Nucleated RBC 0.03 H Immature Gran % 2 H Nucleated RBC % 0 APTT Puncture Site Right Radial ABG pH 7.52 H D ABG pCO2 28 L ABG pO2 50 L* D ABG HCO3 23 ABG O2 Saturation 88 L ABG Base Excess 1 FiO2 60 Sodium 142 Potassium 4.0 Chloride 107 Carbon Dioxide 23.4 Anion Gap 12 BUN 24 H Creatinine 1.1 Estim Creat Clear Calc 76.4 eGFR > 60 BUN/Creatinine Ratio 22 H Glucose 97 Calculated Osmolality 287 Lactic Acid 4.0 H 3.6 H Calcium 8.7 Corrected Calcium 9.1 Phosphorus Magnesium Total Bilirubin 1.2 AST 92 H ALT 172 H Alkaline Phosphatase 96 Lactate Dehydrogenase Total Protein 6.8 Albumin 3.5 Globulin 3.3 Albumin/Globulin Ratio 1.1 L Pleural Color Pleural Appearance Pleural WBC Pleural RBC Pleural Polynuclear WBC Pleural Mononuclear WBC Pleural Total Protein Pleural LDH Pleural Glucose Pleural Amylase Vancomycin Trough 05/31/25 05/31/25 06/01/25 22:19 23:51 01:13 WBC RBC Hgb Hct MCV MCH MCHC RDW Std Deviation Plt Count Neut % (Auto) Lymph % (Auto) Early % (Auto) Eos % (Auto) Baso % (Auto) Neut # (Auto) Lymph # (Auto) Early # (Auto) Eos # (Auto) Baso # (Auto) Immature Gran # (Auto) Absolute Nucleated RBC Immature Gran % Nucleated RBC % APTT Puncture Site Right Radial ABG pH 7.49 H ABG pCO2 29 L ABG pO2 57 L* ABG HCO3 22 ABG O2 Saturation 91 ABG Base Excess 0 FiO2 90 Sodium Potassium Chloride Carbon Dioxide Anion Gap BUN Creatinine Estim Creat Clear Calc eGFR BUN/Creatinine Ratio Glucose Calculated Osmolality Lactic Acid 4.2 H* 5.1 H* Calcium Corrected Calcium Phosphorus Magnesium Total Bilirubin AST ALT Alkaline Phosphatase Lactate Dehydrogenase Total Protein Albumin Globulin Albumin/Globulin Ratio Pleural Color Pleural Appearance Pleural WBC Pleural RBC Pleural Polynuclear WBC Pleural Mononuclear WBC Pleural Total Protein Pleural LDH Pleural Glucose Pleural Amylase Vancomycin Trough 16.6 H 06/01/25 06/01/25 06/01/25 04:20 05:00 05:01 WBC 16.7 H RBC 4.67 Hgb 12.2 L Hct 41.6 MCV 89 MCH 26.1 MCHC 29.3 L RDW Std Deviation 67.8 H Plt Count 90 L Neut % (Auto) 88 H Lymph % (Auto) 4 L Early % (Auto) 5 Eos % (Auto) 0 Baso % (Auto) 0 Neut # (Auto) 14.7 H Lymph # (Auto) 0.6 L Early # (Auto) 0.8 Eos # (Auto) 0.0 Baso # (Auto) 0.0 Immature Gran # (Auto) 0.50 H Absolute Nucleated RBC 0.04 H Immature Gran % 3 H Nucleated RBC % 0 APTT 48.1 H Puncture Site Right Radial ABG pH 7.53 H ABG pCO2 27 L ABG pO2 51 L* ABG HCO3 23 ABG O2 Saturation 88 L ABG Base Excess 1 FiO2 60 Sodium 141 Potassium 3.4 D Chloride 104 Carbon Dioxide 24.5 Anion Gap 13 BUN 20 Creatinine 1.0 Estim Creat Clear Calc 84.0 eGFR > 60 BUN/Creatinine Ratio 20 Glucose 96 Calculated Osmolality 283 Lactic Acid 4.7 H* Calcium 9.1 Corrected Calcium 9.7 Phosphorus 2.9 Magnesium 2.0 Total Bilirubin 1.1 AST 76 H ALT 154 H Alkaline Phosphatase 98 Lactate Dehydrogenase 304 H Total Protein 6.5 Albumin 3.3 L Globulin 3.2 Albumin/Globulin Ratio 1.0 L Pleural Color Pleural Appearance Pleural WBC Pleural RBC Pleural Polynuclear WBC Pleural Mononuclear WBC Pleural Total Protein Pleural LDH Pleural Glucose Pleural Amylase Vancomycin Trough 06/01/25 12:05 WBC RBC Hgb Hct MCV MCH MCHC RDW Std Deviation Plt Count Neut % (Auto) Lymph % (Auto) Early % (Auto) Eos % (Auto) Baso % (Auto) Neut # (Auto) Lymph # (Auto) Early # (Auto) Eos # (Auto) Baso # (Auto) Immature Gran # (Auto) Absolute Nucleated RBC Immature Gran % Nucleated RBC % APTT Puncture Site ABG pH ABG pCO2 ABG pO2 ABG HCO3 ABG O2 Saturation ABG Base Excess FiO2 Sodium Potassium Chloride Carbon Dioxide Anion Gap BUN Creatinine Estim Creat Clear Calc eGFR BUN/Creatinine Ratio Glucose Calculated Osmolality Lactic Acid Calcium Corrected Calcium Phosphorus Magnesium Total Bilirubin AST ALT Alkaline Phosphatase Lactate Dehydrogenase Total Protein Albumin Globulin Albumin/Globulin Ratio Pleural Color Red Pleural Appearance Cloudy Pleural WBC 6168 Pleural RBC 470[address] Pleural Polynuclear WBC 76 Pleural Mononuclear WBC 24 Pleural Total Protein 3.3 Pleural LDH 441 Pleural Glucose 91 Pleural Amylase 24 Vancomycin Trough ABG Interpretation ABG results: 05/29/25 05/31/25 05/31/25 05:33 10:53 17:16 ABG pH 7.38 7.30 L 7.52 H D ABG pCO2 24 L 33 28 L ABG pO2 57 L* 125 H D 50 L* D ABG HCO3 14 L 16 L 23 ABG O2 Saturation 87 L 99 H 88 L ABG Base Excess -9 L -9 L 1 05/31/25 06/01/25 23:51 05:01 ABG pH 7.49 H 7.53 H ABG pCO2 29 L 27 L ABG pO2 57 L* 51 L* ABG HCO3 22 23 ABG O2 Saturation 91 88 L ABG Base Excess 0 1 Quality Measures Quality Measures VTE prophylaxis Assessment & Plan Assessment Current Active Medications: Generic Name Dose Route Start Last Admin Trade Name Freq PRN Reason Stop Dose Admin Acetaminophen 325 mg 05/29/25 12:07 Acetaminophen 325 Mg Tablet PO 06/28/25 12:06 Q6H PRN Fever >101.5, Pain 1-3 Hydrocodone Bitart/Acetaminophen 1 tab 05/31/25 10:37 Hydrocodone/Apap 5/325 Tablet PO 06/05/25 10:36 Q6HR PRN PAIN SCALE 4-10(Mod-Sev Albuterol/Ipratropium 3 ml 05/29/25 12:07 Albuterol/Ipratropium (Duoneb) Rt Becky 3 Ml Nebu INH 06/28/25 12:06 Q2HR PRN SHORTNESS OF BREATH OR WHEEZE Heparin Sodium/Dextrose 25,000 unit in 250 mls @ 14.696 mls/hr 05/29/25 12:15 06/01/25 14:38 Heparin In D5w Ivpb IV 06/12/25 12:14 20 units/kg/hr .Q17H1M COTY 16.329 mls/hr Protocol Administration 18 UNITS/KG/HR Albumin Human 25 gm in 100 mls @ 100 mls/hr 05/31/25 11:04 06/01/25 08:13 Albuminex 25% Ivpb IV 06/03/25 11:03 100 mls/hr QDAY COTY Administration Levofloxacin/Dextrose 750 mg in 150 mls @ 100 mls/hr 06/01/25 10:30 06/01/25 10:43 Levaquin Ivpb IV 06/08/25 10:29 100 mls/hr QDAY COTY Administration Ipratropium [place] 0.5 mg 05/29/25 13:00 06/01/25 12:35 Ipratropium Rt 0.5 Mg/ 2.5 Ml Nebu INH 06/28/25 12:59 0.5 mg Q6HRRT COTY Administration Levalbuterol HCl 1.25 mg 05/29/25 13:00 06/01/25 12:35 Levalbuterol Rt 1.25 Mg/0.5 Ml Nebu INH 06/28/25 12:59 1.25 mg Q6HRRT COTY Administration Nicotine 21 mg 05/29/25 12:15 06/01/25 08:13 Nicotine Patch 21 Mg/24 Hr Patch.Td24 TOP 06/28/25 12:14 21 mg QDAY COTY Administration Ondansetron HCl 4 mg 05/29/25 12:07 Ondansetron Inj 2 Mg/Ml Inj 2 Ml IVP 06/28/25 12:06 Q6H PRN NAUSEA OR VOMITING Protocol Pantoprazole Sodium 40 mg 05/29/25 12:15 06/01/25 08:13 Pantoprazole Inj 40 Mg Vial IVP 06/28/25 12:14 40 mg QDAY COTY Administration Rifaximin 550 mg 06/01/25 10:30 06/01/25 10:43 Rifaximin 550 Mg Tablet PO 06/08/25 10:29 550 mg BID COTY Administration Sodium Chloride 3 ml 05/31/25 10:52 05/31/25 11:00 Sodium Chloride Rt Becky 0.9% 3 Ml Nebu INH 06/30/25 10:51 3 ml PRN PRN Administration SOLN Spironolactone 25 mg 06/01/25 10:30 06/01/25 10:43 Spironolactone 25 Mg Tablet PO 07/01/25 10:29 25 mg QDAY COTY Administration Plan Patient is a 64 year old male with past medical history of schizophrenia, COPD on supplemental home oxygen, chronic active smoker greater than 40 pack years, and status post right inguinal hernia repair in 2018 who presented to ED on 05/29/25 for shortness of breath. Patient was admitted telemetry for acute on chronic hypoxic respiratory failure, pleural effusion, pneumonia and pulmonary emboli, upgraded to ICU on 05/31 for worsening acute on chronic respiratory distress. Downgraded back to telemetry as patient has stabilized and tolerating high flow. #Acute on chronic hypoxic respiratory failure #?COPD exacerbation #History of COPD Likely secondary to pneumonia - Chronic smoking history - Presented with shortness of breath requiring 10 L supplemental oxygen at home. Per chart review patient usually uses a liters at home per brother. - Used rescue inhaler use for the past 2 weeks prior to admission - Lactic 9.0, Pro-[place]y 1.33, WBC 14 with neutrophil dominance -CT showed bilateral pneumonia and left upper lobe and right lower lobe Treatment: - S/p BiPAP, tolerated high flow NC - Discontinue azithromycin, Zosyn and Vancomycin (05/29?06/01) - Start IV levofloxacin (06/01- -Levalbuterol/ipratropium every 6 hours - DuoNebs as needed - Wean oxygen as tolerated #Leukocytosis #Pneumonia #? Parapneumonic effusion - Presented with worsening breathing and increased oxygen requirements. No fevers at home. - Likely infectious in setting of Bacillus in pleural fluid - WBC 14 -> 16 -> 15 - Influenza A&B, COVID negative - UA clean - CT showed bilateral pneumonia and left upper lobe and right lower lobe - Sputum Gram stain showed rare WBCs, 1+ GPC, 1+ GNR - Pleural fluid culture 05/29 grew Bacillus (likely cereus) Treatment: - Discontinued azithromycin, Zosyn and vancomycin - Started on IV levofloxacin - Monitor a.m. CBC - Wean oxygen as tolerated - Follow up repeat pleural studies and cytology #Bilateral pulmonary embolisms Likely secondary to hypercoagable state in setting of malignancy - Presented with shortness of breath requiring 10 L supplemental oxygen at home. 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 -S/p thoracentesis, -750 cc straw colored fluid -Per lights criteria, fluid is exudative, likely secondary to malignancy - Pleural fluid culture 05/29 grew Bacillus (likely cereus) Treatment: - S/p repeat right thoracentesis, -1200 cc red tinged fluid - Consulted oncology, appreciate recommendations - Ordered CT head with and without contrast to assess for possible metastasis - Ordered CT lung biopsy per oncology recommendations - Follow-up repeat pleural studies and fluid cytology #Cirrhosis #Transaminitis (improving) #Hyperbilirubinemia #Anasarca -patient consumed moderate amount of alcohol for many years -Has elevated INR and thrombocytopenia, indicative of chronic pathology -On exam, mild ascites and anasarca, improved s/p diuresis -AST 400s -> 124 - ALT 300s -> 211 Treatment: - Start spiranolactone 25 mg daily - Start rifaximin 550 mg BID - Follow hepatitis panel - Recommend patient follow up outpatient with hepatology/GI #Lactic acidosis type A & B (improving) -Multifactorial: Type A in setting of hypoxia versus type B in setting of cirrhosis/malignancy - Lactic acid 9 -> 3.4, likely persistent in setting of cirrhosis #SURYA -Hemoglobin 13.4 -Iron studies showed low iron and iron saturation, ferritin and TIBC within normal limits Treatment: -No active treatment at this time Treatment follow-up: -Consider starting on iron once infection cleared #History of schizophrenia #Agitation/Anxiety - Per patient, he had been diagnosed years ago by PCP, now retired - Not on any psych medication - During rapid, patient was agitated with increased work of breathing, causing him to desaturate to 80%. Wanted to removed the BiPAP mask. Treatment: - Not currently on any psych medications - Hydroxyzine as needed for agitation - Follow-up with family or PCP regarding diagnosis - Avoid overuse of benzodiazepines as may contribute to decreased respiratory drive Health maintenance: Diet: NPO DVT prophylaxis: Heparin drip Aguilar: None Lines: PIV CODE STATUS: Full This case was discussed with my attending physician, [doctor], and senior resident [resident]. Even though this this note was carefully revised there may still be minor errors in gambling monitor due to voice recognition software. Jozef Crisostomo DO PGY I Attending Provider Attestation/Addendum I have discussed and was present for the essential components of the history, physical examination, diagnosis, and treatment plan with the resident. I agree with the patient's care as documented by the resident and amended herein by me. Per Sultana DO. Although this document has been carefully reviewed, there may still be some phonetic and other typographical errors. These errors are purely grammatical due to imperfections in the software program and should not be construed in any way to compromise the substance of the patient's medical care during this visit.
[2025-06-01 15:42] LABS: Albumin, Serum 3.6 gm/dL (3.4-4.8); Anion Gap 13 (7-16); BUN/Creatinine Ratio 16 Ratio (12-20); Blood Urea Nitrogen 16 mg/dL (9-23); Calcium 8.4 mg/dL (8.3-10.6); Calcium (Corrected) 8.7 mg/dL (8.5-10.1); Carbon Dioxide 23.9 mMol/L (20.0-31.0); Chloride 103 mMol/L (98-107); Creatinine (Component) 1.0 mg/dL (0.6-1.3); Estimated Creatinine Clearance 84.1 mL/min (>60); Glucose 147 mg/dL (74-106); Osmolality,Calculated 283 (275-295); Phosphorous 2.4 mg/dL (2.4-5.1); Potassium 3.2 mMol/L (3.4-5.1); Sodium 140 mMol/L (136-145); eGFR > 60 See Note
[2025-06-01] MEDS: POTASSIUM CHL 10 mEq IVPB 10 MEQ/100 ML BAG 75 MEQ IV ×2 (16:12→17:34)
[2025-06-01] MEDS: HYDROcodone/APAP 5/325 TABLET 1 TAB PO (22:05)
[2025-06-01 23:09] LABS: Hepatitis A Antibody IgM Non Reactive (Non React); Hepatitis B Core Antibody IgM Non Reactive (Non React); Hepatitis B Surface Antigen Non Reactive (Non React); Hepatitis C Antibody Non Reactive (Non React)
[2025-06-01 23:26] LABS: Partial Thromboplastin Time 49.8 Seconds (22.0-36.0)
[2025-06-02] VITALS (23 sets, daily range): BP systolic 85–130; BP diastolic 61–85; PULSE 94–111; RESP 12–29; TEMP 36.3–36.8; O2SAT 86–95; BMI 23.6
[2025-06-02] MEDS: HEPARIN SOD INJ 5000 UNIT/ML VIAL 3240 UNIT IVP (01:20)
[2025-06-02] MEDS: LEVALBUTEROL RT 1.25 MG/0.5 ML NEBU INH ×4 (01:58→18:31)
[2025-06-02] MEDS: IPRATROPIUM RT 0.5 MG/ 2.5 ML NEBU INH ×4 (01:58→18:31)
[2025-06-02 06:47] LABS: Basophils # (Auto) 0.0 Thou/mm3 (0.0-0.2); Basophils % (Auto) 0 % (0-2.5); Eosinophils # (Auto) 0.0 Thou/mm3 (0.0-0.5); Eosinophils % (Auto) 0 % (0-10); Hematocrit 41.5 % (41.0-53.0); Hemoglobin 12.4 g/dL (13.5-16.0); Immature Granulocytes Auto 0.42 Thou/mm3 (0.00-0.00); Lymphocytes # (Auto) 0.8 Thou/mm3 (1.0-4.8); Lymphocytes % (Auto) 5 % (10-50); Mean Corpuscular HGB Conc 29.9 g/dl (31.0-37.0); Mean Corpuscular Hemoglobin 26.3 pg (25.0-35.0); Mean Corpuscular Volume 88 fL (80-100); Monocytes # (Auto) 0.7 Thou/mm3 (0.0-0.8); Monocytes % (Auto) 4 % (0-12); Neutrophils # (Auto) 15.6 Thou/mm3 (1.8-7.7); Neutrophils % (Auto) 89 % (37-80); Nucleated Red Blood Cell # 0.05 Thou/mm3 (0.00-0.00); Nucleated Red Blood Cell % 0 /100 WBC (0); Platelet Count 103 Thou/mm3 (140-440); RDW Standard Deviation 67.5 fL (35.1-43.9); Red Blood Count 4.71 Miln/mm3 (4.50-5.90); White Blood Count 17.6 Thou/mm3 (3.8-10.6)
[2025-06-02 06:58] LABS: Alanine Aminotransferase 105 U/L (10-49); Albumin, Serum 3.3 gm/dL (3.4-4.8); Albumin/Globulin Ratio 1.1 (1.2-2.2); Alkaline Phosphatase 88 U/L (46-116); Anion Gap 12 (7-16); Aspartate Amino Transferase 41 U/L (0-34); BUN/Creatinine Ratio 20 Ratio (12-20); Bilirubin,Total 1.5 mg/dL (0.3-1.2); Blood Urea Nitrogen 18 mg/dL (9-23); Calcium 8.5 mg/dL (8.3-10.6); Calcium (Corrected) 9.1 mg/dL (8.5-10.1); Carbon Dioxide 24.4 mMol/L (20.0-31.0); Chloride 101 mMol/L (98-107); Creatinine (Component) 0.9 mg/dL (0.6-1.3); Estimated Creatinine Clearance 93.4 mL/min (>60); Globulin 3.1 gm/dL (2.3-3.5); Glucose 100 mg/dL (74-106); Magnesium 2.2 mg/dL (1.6-2.6); Osmolality,Calculated 275 (275-295); Phosphorous 2.1 mg/dL (2.4-5.1); Potassium 3.4 mMol/L (3.4-5.1); Sodium 137 mMol/L (136-145); Total Protein 6.4 gm/dL (5.7-8.2); eGFR > 60 See Note
--- NOTE | 2025-06-02 07:41 | ESPR_ITS ---
Documentation for date of: 06/02/25 Subjective Subjective Interval history: Patient seen and examined at bedside; no acute events overnight. Patient states he hasn't had a bowel movement in 3 days; had large liquid BM in afternoon. Said that his L inguinal hernia is bothering him and is not reducible; talked with surgery (Dr. Pritchett), she said follow up outpatient due to curernt bilateral PEs and cirrhosis, so follow up outpatient. Exam Vital Signs Temp Pulse Resp BP Pulse Ox O2 Del Method O2 Flow Rate 97.5 F 101 H 20 85/61 L 95 High Flow Nasal Cannula 35 06/02/25 04:00 06/02/25 06:21 06/02/25 06:21 06/02/25 04:00 06/02/25 06:21 06/02/25 04:00 06/02/25 06:21 FiO2 75 06/02/25 06:21 Narrative Exam General: Awake and in no acute distress; more alert than yesterday. Conversational and non-toxic appearing. Mildly anxious. HEENT: PERRLA. Normocephalic, atraumatic, mucous membranes moist. Heart: Regular rate and rhythm, normal S1 and S2, no murmurs appreciated. Lungs: Decreased breath sounds with intermittent crackles in right lower lobe. Clear in all other lobes. Abdomen: Soft, mildly distended, nontender, positive bowel sounds. No guarding or rebound tenderness. Mild ascites. : Aguilar in place. Large left inguinal mass, no discoloration or tenderness. Neurologic: Alert and oriented x3, no gross neurological deficit, and patient able to move all 4 extremities. Extremities: 2+ pitting edema extending up to knees. Skin: No rash or ecchymoses. Objective Labs 06/02/25 04:20 06/02/25 04:20 Labs: Laboratory Results - last 24 hr 05/31/25 06/01/25 06/01/25 08:00 04:20 12:05 WBC RBC Hgb Hct MCV MCH MCHC RDW Std Deviation Plt Count Neut % (Auto) Lymph % (Auto) [place] % (Auto) Eos % (Auto) Baso % (Auto) Neut # (Auto) Lymph # (Auto) [place] # (Auto) Eos # (Auto) Baso # (Auto) Immature Gran # (Auto) Absolute Nucleated RBC Immature Gran % Nucleated RBC % APTT Sodium Potassium Chloride Carbon Dioxide Anion Gap BUN Creatinine Estim Creat Clear Calc eGFR BUN/Creatinine Ratio Glucose Calculated Osmolality Calcium Corrected Calcium Phosphorus Magnesium Total Bilirubin AST ALT Alkaline Phosphatase Lactate Dehydrogenase 304 H Total Protein Albumin Globulin Albumin/Globulin Ratio Pleural Color Red Pleural Appearance Cloudy Pleural WBC 6168 Pleural RBC 12678 Pleural Polynuclear WBC 76 Pleural Mononuclear WBC 24 Pleural Total Protein 3.3 Pleural LDH 441 Pleural Glucose 91 Pleural Amylase 24 Hepatitis A IgM Ab Non Reactive Hep Bs Antigen Non Reactive Hep B Core IgM Ab Non Reactive Hepatitis C Antibody Non Reactive 06/01/25 06/01/25 06/02/25 14:20 22:28 04:20 WBC 17.6 H RBC 4.71 Hgb 12.4 L Hct 41.5 MCV 88 MCH 26.3 MCHC 29.9 L RDW Std Deviation 67.5 H Plt Count 103 L Neut % (Auto) 89 H Lymph % (Auto) 5 L [place] % (Auto) 4 Eos % (Auto) 0 Baso % (Auto) 0 Neut # (Auto) 15.6 H Lymph # (Auto) 0.8 L [place] # (Auto) 0.7 Eos # (Auto) 0.0 Baso # (Auto) 0.0 Immature Gran # (Auto) 0.42 H Absolute Nucleated RBC 0.05 H Immature Gran % 2 H Nucleated RBC % 0 APTT 87.1 H D 49.8 H D Sodium 140 137 Potassium 3.2 L 3.4 Chloride 103 101 Carbon Dioxide 23.9 24.4 Anion Gap 13 12 BUN 16 18 Creatinine 1.0 0.9 Estim Creat Clear Calc 84.1 93.4 eGFR > 60 > 60 BUN/Creatinine Ratio 16 20 Glucose 147 H D 100 Calculated Osmolality 283 275 Calcium 8.4 8.5 Corrected Calcium 8.7 9.1 Phosphorus 2.4 2.1 L Magnesium 2.2 Total Bilirubin 1.5 H AST 41 H ALT 105 H Alkaline Phosphatase 88 Lactate Dehydrogenase Total Protein 6.4 Albumin 3.6 3.3 L Globulin 3.1 Albumin/Globulin Ratio 1.1 L Pleural Color Pleural Appearance Pleural WBC Pleural RBC Pleural Polynuclear WBC Pleural Mononuclear WBC Pleural Total Protein Pleural LDH Pleural Glucose Pleural Amylase Hepatitis A IgM Ab Hep Bs Antigen Hep B Core IgM Ab Hepatitis C Antibody ABG Interpretation ABG results: 05/29/25 05/31/25 05/31/25 05:33 10:53 17:16 ABG pH 7.38 7.30 L 7.52 H D ABG pCO2 24 L 33 28 L ABG pO2 57 L* 125 H D 50 L* D ABG HCO3 14 L 16 L 23 ABG O2 Saturation 87 L 99 H 88 L ABG Base Excess -9 L -9 L 1 05/31/25 06/01/25 23:51 05:01 ABG pH 7.49 H 7.53 H ABG pCO2 29 L 27 L ABG pO2 57 L* 51 L* ABG HCO3 22 23 ABG O2 Saturation 91 88 L ABG Base Excess 0 1 Quality Measures Quality Measures VTE prophylaxis Assessment & Plan Assessment Current Active Medications: Generic Name Dose Route Start Last Admin Trade Name Freq PRN Reason Stop Dose Admin Acetaminophen 325 mg 05/29/25 12:07 Acetaminophen 325 Mg Tablet PO 06/28/25 12:06 Q6H PRN Fever >101.5, Pain 1-3 Hydrocodone Bitart/Acetaminophen 1 tab 05/31/25 10:37 06/01/25 22:05 Hydrocodone/Apap 5/325 Tablet PO 06/05/25 10:36 1 tab Q6HR PRN Administration PAIN SCALE 4-10(Mod-Sev Albuterol/Ipratropium 3 ml 05/29/25 12:07 Albuterol/Ipratropium (Duoneb) Rt Becky 3 Ml Nebu INH 06/28/25 12:06 Q2HR PRN SHORTNESS OF BREATH OR WHEEZE Heparin Sodium/Dextrose 25,000 unit in 250 mls @ 14.696 mls/hr 05/29/25 12:15 06/02/25 01:24 Heparin In D5w Ivpb IV 06/12/25 12:14 20 units/kg/hr .Q17H1M COTY 16.329 mls/hr Protocol Titration 18 UNITS/KG/HR Albumin Human 25 gm in 100 mls @ 100 mls/hr 05/31/25 11:04 06/01/25 09:13 Albuminex 25% Ivpb IV 06/03/25 11:03 Infused QDAY COTY Infusion Levofloxacin/Dextrose 750 mg in 150 mls @ 100 mls/hr 06/01/25 10:30 06/01/25 12:13 Levaquin Ivpb IV 06/08/25 10:29 Infused QDAY COTY Infusion Ipratropium [place] 0.5 mg 05/29/25 13:00 06/02/25 06:17 Ipratropium Rt 0.5 Mg/ 2.5 Ml Nebu INH 06/28/25 12:59 0.5 mg Q6HRRT COTY Administration Levalbuterol HCl 1.25 mg 05/29/25 13:00 06/02/25 06:17 Levalbuterol Rt 1.25 Mg/0.5 Ml Nebu INH 06/28/25 12:59 1.25 mg Q6HRRT COTY Administration Nicotine 21 mg 05/29/25 12:15 06/01/25 08:13 Nicotine Patch 21 Mg/24 Hr Patch.Td24 TOP 06/28/25 12:14 21 mg QDAY COTY Administration Ondansetron HCl 4 mg 05/29/25 12:07 Ondansetron Inj 2 Mg/Ml Inj 2 Ml IVP 06/28/25 12:06 Q6H PRN NAUSEA OR VOMITING Protocol Pantoprazole Sodium 40 mg 05/29/25 12:15 06/01/25 08:13 Pantoprazole Inj 40 Mg Vial IVP 06/28/25 12:14 40 mg QDAY COTY Administration Potassium Phos/Sodium Phos 1 packet 06/02/25 07:38 [place] 1 Packet (1.5 Gm) PO 06/02/25 07:39 X1 ONE Rifaximin 550 mg 06/01/25 10:30 06/01/25 20:50 Rifaximin 550 Mg Tablet PO 06/08/25 10:29 550 mg BID COTY Administration Sodium Chloride 3 ml 05/31/25 10:52 05/31/25 11:00 Sodium Chloride Rt Becky 0.9% 3 Ml Nebu INH 06/30/25 10:51 3 ml PRN PRN Administration SOLN Spironolactone 25 mg 06/01/25 10:30 06/01/25 10:43 Spironolactone 25 Mg Tablet PO 07/01/25 10:29 25 mg QDAY COTY Administration Plan Patient is a 64 year old male with past medical history of schizophrenia, COPD on supplemental home oxygen, chronic active smoker greater than 40 pack years, and status post right inguinal hernia repair in 2018 who presented to ED on 05/29/25 for shortness of breath. Patient was admitted telemetry for acute on chronic hypoxic respiratory failure, pleural effusion, pneumonia and pulmonary emboli, upgraded to ICU on 05/31 for worsening acute on chronic respiratory distress. Downgraded back to telemetry as patient has stabilized and tolerating high flow. #Acute on chronic hypoxic respiratory failure #?COPD exacerbation #History of COPD Likely secondary to pneumonia - Chronic smoking history - Presented with shortness of breath requiring 10 L supplemental oxygen at home. Per chart review patient usually uses a liters at home per brother. - Used rescue inhaler use for the past 2 weeks prior to admission - Lactic 9.0, Pro-[place] 1.33, WBC 14 with neutrophil dominance -CT showed bilateral pneumonia and left upper lobe and right lower lobe Treatment: - S/p BiPAP, tolerated high flow NC - Discontinue azithromycin, Zosyn and Vancomycin (05/29?06/01) - Start IV levofloxacin (06/01- -Levalbuterol/ipratropium every 6 hours - DuoNebs as needed - Wean oxygen as tolerated #Leukocytosis #Pneumonia #? Parapneumonic effusion - Presented with worsening breathing and increased oxygen requirements. No fevers at home. - Likely infectious in setting of Bacillus in pleural fluid - WBC 14 -> 16 -> 15 - Influenza A&B, COVID negative - UA clean - CT showed bilateral pneumonia and left upper lobe and right lower lobe - Sputum Gram stain showed rare WBCs, 1+ GPC, 1+ GNR - Pleural fluid culture 05/29 grew Bacillus (likely cereus) Treatment: - Discontinued azithromycin, Zosyn and vancomycin - Started on IV levofloxacin - Monitor a.m. CBC - Wean oxygen as tolerated - Follow up repeat pleural studies and cytology #Bilateral pulmonary embolisms Likely secondary to hypercoagable state in setting of malignancy - Presented with shortness of breath requiring 10 L supplemental oxygen at home. 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 -S/p thoracentesis, -750 cc straw colored fluid -Per lights criteria, fluid is exudative, likely secondary to malignancy - Pleural fluid culture 05/29 grew Bacillus (likely cereus) Treatment: - S/p repeat right thoracentesis, -1200 cc red tinged fluid - Consulted oncology, appreciate recommendations - Ordered CT head with and without contrast to assess for possible metastasis - Ordered CT lung biopsy per oncology recommendations - Follow-up repeat pleural studies and fluid cytology #Cirrhosis #Transaminitis (improving) #Hyperbilirubinemia #Anasarca -patient consumed moderate amount of alcohol for many years -Has elevated INR and thrombocytopenia, indicative of chronic pathology -On exam, mild ascites and anasarca, improved s/p diuresis -AST 436 -> 41 - ALT 398 -> 105 Hepatitis panel non reactive Treatment: - spiranolactone 25 mg daily - rifaximin 550 mg BID - Recommend patient follow up outpatient with hepatology/GI #Lactic acidosis type A & B (improving) -Multifactorial: Type A in setting of hypoxia versus type B in setting of cirrhosis/malignancy - Lactic acid 9 -> 3.4, likely persistent in setting of cirrhosis #SURYA -Hemoglobin 12.4 -Iron studies showed low iron and iron saturation, ferritin and TIBC within normal limits Treatment: -No active treatment at this time -Consider starting on iron once infection cleared #History of schizophrenia #Agitation/Anxiety - Per patient, he had been diagnosed years ago by PCP, now retired - Not on any psych medication - During rapid, patient was agitated with increased work of breathing, causing him to desaturate to 80%. Wanted to removed the BiPAP mask. Treatment: - Not currently on any psych medications - Hydroxyzine as needed for agitation - Follow-up with family or PCP regarding diagnosis - Avoid overuse of benzodiazepines as may contribute to decreased respiratory drive Health maintenance: Diet: NPO DVT prophylaxis: Heparin amy Aguilar: None Lines: PIV CODE STATUS: Full This case was discussed with my attending physician, Dr. Conway, and senior resident, Dr. Perez. Dedrick Raza, PGY1 Senior Resident Attestation: The patient reported doing better day by day. Still on high flow nasal cannula. We will continue with heparin drip for pulmonary embolism, and IV levofloxacin for community-acquired pneumonia. I discussed with and supervised the human resource internship physician involved in the care of this patient. I personally saw and examined the patient and discussed the assessment and plan with the entire medicine team, including my attending. I agree with the assessment and plan as documented above. Gerber Perez MD PGY2 Internal Medicine Attending Provider Attestation/Addendum Patient with hypoxic respiratory failure, right upper lobe mass, pleural effusion, pulmonary embolism on heparin drip. The patient is scheduled for thoracentesis. He is more alert today. He appears less dyspneic. He said he has not had bowel movement. Gave him MiraLAX. Continue current treatment. Will need pathologic diagnosis for right upper lobe mass. Discussed with housestaff
[2025-06-02] MEDS: Heparin/D5w 25K 250 ML Ivpb 25,000 UNIT/250 ML BAG 16.329 UNIT IV (07:48)
[2025-06-02] MEDS: NICOTINE PATCH 21 MG/24 HR PATCH.TD24 TOP (08:15)
[2025-06-02] MEDS: LEVOFLOXACIN/D5W 750MG IVPB 750 MG/150 ML BAG 100 MG IV (08:16)
[2025-06-02] MEDS: ALBUMIN HUMAN-KJDA 25% IVPB 25 GM/100 ML BTL IV (08:16)
[2025-06-02] MEDS: NAPH,KPH MBDB 1 PACKET (1.5 GM) PO ×2 (08:16)
[2025-06-02] MEDS: SPIRONOLACTONE 25 MG TABLET PO (08:17)
[2025-06-02 08:33] LABS: Partial Thromboplastin Time 60.8 Seconds (22.0-36.0)
--- NOTE | 2025-06-02 08:49 | PC.PT ---
Will cancel PT evaluation at this time. Patient is not stable to do Physical Therapy at this time.
--- NOTE | 2025-06-02 10:03 | PC.NURSE ---
notified khai pope to have hospitalist reevaluate the patient for appropriateness of proceeding with lung bx. per khai shi will reassess and notify the bottle labeler.
--- NOTE | 2025-06-02 10:39 | XR_ITS ---
Examination: CT brain head without contrast. CT brain head with intravenous contrast 2-D sagittal coronal reconstructions Date and time of exam: June 02, 20252005 hours INDICATIONS: Lung carcinoma diagnosis, staging CTDI: vol (mGy): 103.0 DLP: (mGycm): 2044 Technique: Multiple CT axial sections of the brain have been obtained, 5 mm slice thickness., Pre and post 50 cc Isovue 370 2-D sagittal, coronal reconstructions have been obtained Low dose protocols were performed. One or more of the following dose reduction techniques were used; automated exposure control, adjustment of the mA and/or KV according to patient size, use of iterative reconstruction technique. Findings: No significant ventricular enlargement. Intra-axial or extra-axial hemorrhage density is not seen. No mass effect or midline shift Basal cisterns are not remarkable. Fourth ventricle is midline. Cranial vault intact. No abnormal enhancing cerebellar or cerebral lesions Impression: Negative for acute hemorrhage, mass effect or midline shift No abnormal enhancing cerebellar or cerebral lesions, however, as clinically warranted, brain MRI follow-up pre and postcontrast would be preferable in assessing for early cerebral metastatic disease
[2025-06-02] MEDS: POLYETHYLENE GLYCOL 17 GM PACKET PO (10:50)
--- NOTE | 2025-06-02 14:26 | PC.SS ---
Rounding Note: Patient currently on high flow oxygen. Biopsy procedure pending reduction with oxygen level.
[2025-06-02 19:46] LABS: Partial Thromboplastin Time 57.3 Seconds (22.0-36.0)
[2025-06-02] MEDS: HYDROcodone/APAP 5/325 TABLET 1 TAB PO (20:33)
[2025-06-02] MEDS: ACETAMINOPHEN 325 MG TABLET PO (23:46)
[2025-06-03] VITALS (17 sets, daily range): BP systolic 84–121; BP diastolic 63–88; PULSE 95–117; RESP 12–30; TEMP 36.5; O2SAT 87–94; BMI 23.6
[2025-06-03] MEDS: IPRATROPIUM RT 0.5 MG/ 2.5 ML NEBU INH ×3 (00:06→15:56)
[2025-06-03] MEDS: LEVALBUTEROL RT 1.25 MG/0.5 ML NEBU INH ×4 (00:06→19:00)
[2025-06-03 02:16] LABS: Basophils # (Auto) 0.0 Thou/mm3 (0.0-0.2); Basophils % (Auto) 0 % (0-2.5); Eosinophils # (Auto) 0.0 Thou/mm3 (0.0-0.5); Eosinophils % (Auto) 0 % (0-10); Hematocrit 39.5 % (41.0-53.0); Hemoglobin 12.0 g/dL (13.5-16.0); Immature Granulocytes Auto 0.34 Thou/mm3 (0.00-0.00); Lymphocytes # (Auto) 0.7 Thou/mm3 (1.0-4.8); Lymphocytes % (Auto) 4 % (10-50); Mean Corpuscular HGB Conc 30.4 g/dl (31.0-37.0); Mean Corpuscular Hemoglobin 25.9 pg (25.0-35.0); Mean Corpuscular Volume 85 fL (80-100); Monocytes # (Auto) 0.8 Thou/mm3 (0.0-0.8); Monocytes % (Auto) 4 % (0-12); Neutrophils # (Auto) 16.1 Thou/mm3 (1.8-7.7); Neutrophils % (Auto) 90 % (37-80); Nucleated Red Blood Cell # 0.05 Thou/mm3 (0.00-0.00); Nucleated Red Blood Cell % 0 /100 WBC (0); Platelet Count 104 Thou/mm3 (140-440); RDW Standard Deviation 62.8 fL (35.1-43.9); Red Blood Count 4.64 Miln/mm3 (4.50-5.90); White Blood Count 18.0 Thou/mm3 (3.8-10.6)
[2025-06-03] MEDS: HYDROcodone/APAP 5/325 TABLET 1 TAB PO (02:39)
[2025-06-03] MEDS: Heparin/D5w 25K 250 ML Ivpb 25,000 UNIT/250 ML BAG 16.329 UNIT IV ×2 (02:40→18:52)
[2025-06-03 02:58] LABS: Partial Thromboplastin Time 59.4 Seconds (22.0-36.0)
[2025-06-03 03:36] LABS: Alanine Aminotransferase 81 U/L (10-49); Albumin, Serum 3.3 gm/dL (3.4-4.8); Alkaline Phosphatase 80 U/L (46-116); Anion Gap 10 (7-16); Aspartate Amino Transferase 30 U/L (0-34); BUN/Creatinine Ratio 20 Ratio (12-20); Bilirubin,Total 1.6 mg/dL (0.3-1.2); Blood Urea Nitrogen 14 mg/dL (9-23); Calcium 8.6 mg/dL (8.3-10.6); Calcium (Corrected) 9.2 mg/dL (8.5-10.1); Carbon Dioxide 22.9 mMol/L (20.0-31.0); Chloride 101 mMol/L (98-107); Creatinine (Component) 0.7 mg/dL (0.6-1.3); Estimated Creatinine Clearance 120.1 mL/min (>60); Glucose 121 mg/dL (74-106); Magnesium 2.2 mg/dL (1.6-2.6); Osmolality,Calculated 269 (275-295); Phosphorous 2.4 mg/dL (2.4-5.1); Potassium 3.6 mMol/L (3.4-5.1); Sodium 134 mMol/L (136-145); eGFR > 60 See Note
[2025-06-03] MEDS: NICOTINE PATCH 21 MG/24 HR PATCH.TD24 TOP (08:42)
[2025-06-03] MEDS: LEVOFLOXACIN/D5W 750MG IVPB 750 MG/150 ML BAG 100 MG IV (08:42)
[2025-06-03] MEDS: ALBUMIN HUMAN-KJDA 25% IVPB 25 GM/100 ML BTL IV (08:42)
[2025-06-03] MEDS: SPIRONOLACTONE 25 MG TABLET PO (08:43)
[2025-06-03] MEDS: POLYETHYLENE GLYCOL 17 GM PACKET PO (08:43)
--- NOTE | 2025-06-03 09:25 | ESPR_ITS ---
Documentation for date of: 06/03/25 Subjective Subjective Interval history: Patient seen and examined at bedside; no acute events overnight. was anxious in AM; given PRN ativan to help. Exam Vital Signs Temp Pulse Resp BP Pulse Ox O2 Del Method O2 Flow Rate 97.7 F 104 H 24 H 118/83 90 L High Flow Nasal Cannula 30 06/03/25 04:00 06/03/25 08:43 06/03/25 06:06 06/03/25 08:43 06/03/25 06:06 06/02/25 04:00 06/03/25 06:06 FiO2 70 06/03/25 06:06 Narrative Exam General: Awake and in no acute distress; alert. moderately anxious. HEENT: PERRLA. Normocephalic, atraumatic, mucous membranes moist. Heart: Regular rate and rhythm, normal S1 and S2, no murmurs appreciated. Lungs: Decreased breath sounds with intermittent crackles in right lower lobe. Clear in all other lobes. Abdomen: Soft, mildly distended, nontender, positive bowel sounds. No guarding or rebound tenderness. Mild ascites. : Aguilar in place. Large left inguinal mass, no discoloration or tenderness. Neurologic: Alert and oriented x3, no gross neurological deficit, and patient able to move all 4 extremities. Extremities: 2+ pitting edema extending up to knees. Skin: No rash or ecchymoses. Objective Labs 06/03/25 02:06 06/03/25 02:06 Labs: Laboratory Results - last 24 hr 06/02/25 06/03/25 19:04 02:06 WBC 18.0 H RBC 4.64 Hgb 12.0 L Hct 39.5 L MCV 85 MCH 25.9 MCHC 30.4 L RDW Std Deviation 62.8 H Plt Count 104 L Neut % (Auto) 90 H Lymph % (Auto) 4 L [place] % (Auto) 4 Eos % (Auto) 0 Baso % (Auto) 0 Neut # (Auto) 16.1 H Lymph # (Auto) 0.7 L [place] # (Auto) 0.8 Eos # (Auto) 0.0 Baso # (Auto) 0.0 Immature Gran # (Auto) 0.34 H Absolute Nucleated RBC 0.05 H Immature Gran % 2 H Nucleated RBC % 0 APTT 57.3 H 59.4 H Sodium 134 L Potassium 3.6 Chloride 101 Carbon Dioxide 22.9 Anion Gap 10 BUN 14 Creatinine 0.7 Estim Creat Clear Calc 120.1 eGFR > 60 BUN/Creatinine Ratio 20 Glucose 121 H Calculated Osmolality 269 L Calcium 8.6 Corrected Calcium 9.2 Phosphorus 2.4 Magnesium 2.2 Total Bilirubin 1.6 H AST 30 ALT 81 H Alkaline Phosphatase 80 Albumin 3.3 L ABG Interpretation ABG results: 05/29/25 05/31/25 05/31/25 05:33 10:53 17:16 ABG pH 7.38 7.30 L 7.52 H D ABG pCO2 24 L 33 28 L ABG pO2 57 L* 125 H D 50 L* D ABG HCO3 14 L 16 L 23 ABG O2 Saturation 87 L 99 H 88 L ABG Base Excess -9 L -9 L 1 05/31/25 06/01/25 23:51 05:01 ABG pH 7.49 H 7.53 H ABG pCO2 29 L 27 L ABG pO2 57 L* 51 L* ABG HCO3 22 23 ABG O2 Saturation 91 88 L ABG Base Excess 0 1 Quality Measures Quality Measures VTE prophylaxis Assessment & Plan Assessment Current Active Medications: Generic Name Dose Route Start Last Admin Trade Name Freq PRN Reason Stop Dose Admin Acetaminophen 325 mg 05/29/25 12:07 06/02/25 23:46 Acetaminophen 325 Mg Tablet PO 06/28/25 12:06 325 mg Q6H PRN Administration Fever >101.5, Pain 1-3 Hydrocodone Bitart/Acetaminophen 1 tab 05/31/25 10:37 06/03/25 02:39 Hydrocodone/Apap 5/325 Tablet PO 06/05/25 10:36 1 tab Q6HR PRN Administration PAIN SCALE 4-10(Mod-Sev Albuterol/Ipratropium 3 ml 05/29/25 12:07 Albuterol/Ipratropium (Duoneb) Rt Becky 3 Ml Nebu INH 06/28/25 12:06 Q2HR PRN SHORTNESS OF BREATH OR WHEEZE Heparin Sodium/Dextrose 25,000 unit in 250 mls @ 14.696 mls/hr 05/29/25 12:15 06/03/25 02:40 Heparin In D5w Ivpb IV 06/12/25 12:14 20 units/kg/hr .Q17H1M COTY 16.329 mls/hr Protocol Administration 18 UNITS/KG/HR Albumin Human 25 gm in 100 mls @ 100 mls/hr 05/31/25 11:04 06/03/25 08:42 Albuminex 25% Ivpb IV 06/03/25 11:03 100 mls/hr QDAY COTY Administration Levofloxacin/Dextrose 750 mg in 150 mls @ 100 mls/hr 06/01/25 10:30 06/03/25 08:42 Levaquin Ivpb IV 06/08/25 10:29 100 mls/hr QDAY COTY Administration Ipratropium [place] 0.5 mg 05/29/25 13:00 06/03/25 06:04 Ipratropium Rt 0.5 Mg/ 2.5 Ml Nebu INH 06/28/25 12:59 0.5 mg Q6HRRT COTY Administration Levalbuterol HCl 1.25 mg 05/29/25 13:00 06/03/25 06:04 Levalbuterol Rt 1.25 Mg/0.5 Ml Nebu INH 06/28/25 12:59 1.25 mg Q6HRRT COTY Administration Midodrine 5 mg 06/02/25 08:08 Midodrine 5 Mg Tablet PO 07/02/25 08:14 TID PRN hypotension Nicotine 21 mg 05/29/25 12:15 06/03/25 08:42 Nicotine Patch 21 Mg/24 Hr Patch.Td24 TOP 06/28/25 12:14 21 mg QDAY COTY Administration Ondansetron HCl 4 mg 05/29/25 12:07 Ondansetron Inj 2 Mg/Ml Inj 2 Ml IVP 06/28/25 12:06 Q6H PRN NAUSEA OR VOMITING Protocol Pantoprazole Sodium 40 mg 05/29/25 12:15 06/03/25 08:43 Pantoprazole Inj 40 Mg Vial IVP 06/28/25 12:14 40 mg QDAY COTY Administration Polyethylene Glycol 17 gm 06/02/25 10:30 06/03/25 08:43 Polyethylene Glycol 17 Gm Packet PO 07/02/25 10:29 17 gm QDAY COTY Administration Rifaximin 550 mg 06/01/25 10:30 06/03/25 08:43 Rifaximin 550 Mg Tablet PO 06/08/25 10:29 550 mg BID COTY Administration Sodium Chloride 3 ml 05/31/25 10:52 05/31/25 11:00 Sodium Chloride Rt Becky 0.9% 3 Ml Nebu INH 06/30/25 10:51 3 ml PRN PRN Administration SOLN Spironolactone 25 mg 06/01/25 10:30 06/03/25 08:43 Spironolactone 25 Mg Tablet PO 07/01/25 10:29 25 mg QDAY COTY Administration Plan Patient is a 64 year old male with past medical history of schizophrenia, COPD on supplemental home oxygen, chronic active smoker greater than 40 pack years, and status post right inguinal hernia repair in 2018 who presented to ED on 05/29/25 for shortness of breath. Patient was admitted telemetry for acute on chronic hypoxic respiratory failure, pleural effusion, pneumonia and pulmonary emboli, upgraded to ICU on 05/31 for worsening acute on chronic respiratory distress. Downgraded back to telemetry as patient has stabilized and tolerating high flow. #Acute on chronic hypoxic respiratory failure #?COPD exacerbation Likely secondary to pneumonia - Chronic smoking history - Presented with shortness of breath requiring 10 L supplemental oxygen at home. Per chart review patient usually uses a liters at home per brother. - Used rescue inhaler use for the past 2 weeks prior to admission - Lactic 9.0, Pro-[place] 1.33, WBC 14 with neutrophil dominance -CT showed bilateral pneumonia and left upper lobe and right lower lobe Treatment: - S/p BiPAP, tolerated high flow NC - Discontinue azithromycin, Zosyn and Vancomycin (05/29?06/01) - Start IV levofloxacin (06/01- -Levalbuterol/ipratropium every 6 hours - DuoNebs as needed - Wean oxygen as tolerated #Pneumonia Likely secondary to gram-negative versus gram-positive organisms #? Parapneumonic effusion - Presented with worsening breathing and increased oxygen requirements. No fevers at home. - Likely infectious in setting of Bacillus in pleural fluid - WBC 14 -> 16 -> 15 - Influenza A&B, COVID negative - UA clean - CT showed bilateral pneumonia and left upper lobe and right lower lobe - Sputum Gram stain showed rare WBCs, 1+ GPC, 1+ GNR - Pleural fluid culture 05/29 grew Bacillus (likely cereus) Treatment: - Discontinued azithromycin, Zosyn and vancomycin - Started on IV levofloxacin - Monitor a.m. CBC - Wean oxygen as tolerated - Follow up repeat pleural studies and cytology #Bilateral pulmonary embolisms Likely secondary to hypercoagable state in setting of malignancy - Presented with shortness of breath requiring 10 L supplemental oxygen at home. 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 -S/p thoracentesis, -750 cc straw colored fluid -Per lights criteria, fluid is exudative, likely secondary to malignancy - Pleural fluid culture 05/29 grew Bacillus (likely cereus) - CT head with and without contrast showed no cranial masses Plan: - S/p repeat right thoracentesis, -1200 cc red tinged fluid - Oncology recommended lung biopsy - Ordered CT lung biopsy per oncology recommendations - Follow-up repeat pleural studies and fluid cytology #Cirrhosis #Transaminitis (improving) #Hyperbilirubinemia #Anasarca -patient consumed moderate amount of alcohol for many years -Has elevated INR and thrombocytopenia, indicative of chronic pathology -On exam, mild ascites and anasarca, improved s/p diuresis -AST 436 -> 41 - ALT 398 -> 105 Hepatitis panel non reactive Plan: - spiranolactone 100 mg daily - rifaximin 550 mg BID - Recommend patient follow up outpatient with hepatology/GI #Lactic acidosis type A & B (improving) -Multifactorial: Type A in setting of hypoxia versus type B in setting of cirrhosis/malignancy - Lactic acid 9 -> 3.4, likely persistent in setting of cirrhosis #SURYA -Hemoglobin 12.4 -Iron studies showed low iron and iron saturation, ferritin and TIBC within normal limits Treatment: -No active treatment at this time -Consider starting on iron once infection cleared #History of schizophrenia #Agitation/Anxiety - Per patient, he had been diagnosed years ago by PCP, now retired - Not on any psych medication - During rapid, patient was agitated with increased work of breathing, causing him to desaturate to 80%. Wanted to removed the BiPAP mask. Treatment: - Not currently on any psych medications - Hydroxyzine as needed for agitation - Follow-up with family or PCP regarding diagnosis - Avoid overuse of benzodiazepines as may contribute to decreased respiratory drive Health maintenance: Diet: NPO DVT prophylaxis: Heparin drip Aguilar: None Lines: PIV CODE STATUS: Full This case was discussed with my attending physician, Dr. Sultana, and senior resident, Dr. Perez. Dedrick Raza, PGY1 Senior Resident Attestation: The patient continues to be on high flow nasal cannula, physical examination significant for bibasilar crackles. White count mildly elevated to 18, was started on Lasix and spironolactone for pulmonary congestions. We will continue with heparin drip for pulmonary embolism, and antibiotics for pneumonia. I discussed with and supervised the internal grinder set up operator physician involved in the care of this patient. I personally saw and examined the patient and discussed the assessment and plan with the entire medicine team, including my attending. I agree with the assessment and plan as documented above. Gerber Perez MD PGY3 Internal Medicine Attending Provider Attestation/Addendum I have discussed and was present for the essential components of the history, physical examination, diagnosis, and treatment plan with the resident. I agree with the patient's care as documented by the resident and amended herein by me. Per Sultana DO. Although this document has been carefully reviewed, there may still be some phonetic and other typographical errors. These errors are purely grammatical due to imperfections in the software program and should not be construed in any way to compromise the substance of the patient's medical care during this visit.
[2025-06-03] MEDS: SPIRONOLACTONE 25 MG TABLET 100 MG PO (12:59)
[2025-06-03] MEDS: FUROSEMIDE INJ 10 MG/ML 4ML VIAL 40 MG IVP (12:59)
[2025-06-03 13:23] LABS: Albumin/Globulin Ratio 1.0 (1.2-2.2); Globulin 3.3 gm/dL (2.3-3.5); Total Protein 6.6 gm/dL (5.7-8.2)
--- NOTE | 2025-06-03 14:26 | PC.SS ---
Update: Patient receiving IV diuretic. Remains on high flow oxygen.
[2025-06-03] MEDS: SODIUM CHLORIDE RT SOL 0.9% 3 ML NEBU INH (15:56)
[2025-06-03] MEDS: HALOPERIDOL LACT INJ 5 MG/ML VIAL 2.5 MG IV (18:52)
--- NOTE | 2025-06-03 18:55 | PD.RESEVENT ---
Documentation for date of: 06/03/25 Event Note Event Note: Rapid response was called at approximately 18:40 for shortness of breath. Patient had wanted to move rooms because he didn't like his current one, and then began desatting into the 80s. FiO2 was increased to 100% and patient was given Haldol 2.5 IV. Will also do CXR in AM to determine if pulmonary status has changed. This case was discussed with my attending physician, Dr. Sultana, and senior resident, Dr. Cameron. Dedrick Raza, PGY1
--- NOTE | 2025-06-03 18:56 | PC.NURSE ---
CLINICAL OPERATIONS LEADER CALLED FOR OXYGEN DESATURATION AND AGITATION.
[2025-06-03] MEDS: MIDODRINE 5 MG TABLET PO (20:45)
[2025-06-03 20:50] LABS: Base Excess 0 (-3-3); HCO3 22 mEq/L (20-26); Inspired Oxygen, FIO2 45 %; O2 Saturation 88 % (91-98); PCO2 26 mmHg (32.0-48.0); pH, Arterial 7.54 (7.35-7.45)
[2025-06-03 20:52] LABS: Allen Test Not Performed; PO2 60 mmHg (83-108); Puncture Site Right Radial
[2025-06-04] VITALS (19 sets, daily range): BP systolic 86–103; BP diastolic 61–81; PULSE 87–102; RESP 12–29; TEMP 36.1–36.6; O2SAT 88–94; BMI 23.6
[2025-06-04] MEDS: IPRATROPIUM RT 0.5 MG/ 2.5 ML NEBU INH ×4 (00:43→18:05)
[2025-06-04] MEDS: LEVALBUTEROL RT 1.25 MG/0.5 ML NEBU INH ×4 (00:43→18:06)
[2025-06-04] MEDS: MIDODRINE 5 MG TABLET PO (00:58)
--- NOTE | 2025-06-04 05:00 | XR_ITS ---
EXAMINATION: AP chest single view TECHNIQUE: AP portable semiupright chest single view Date and time: June 04, 2025, 0534 hours, comparison June 01, 2025 INDICATIONS: Shortness of breath today. FINDINGS: Pulmonary mass in the right lung again depicted Extensive bilateral pneumonia Mild prominence left ventricle Possible significant layered right pleural fluid Prominent osteopenia IMPRESSION: Large pulmonary mass right upper lobe again noted Significant bilateral pneumonia/ARDS
[2025-06-04 06:20] LABS: Basophils # (Auto) 0.0 Thou/mm3 (0.0-0.2); Basophils % (Auto) 0 % (0-2.5); Eosinophils # (Auto) 0.0 Thou/mm3 (0.0-0.5); Eosinophils % (Auto) 0 % (0-10); Hematocrit 38.8 % (41.0-53.0); Hemoglobin 11.8 g/dL (13.5-16.0); Immature Granulocytes Auto 0.50 Thou/mm3 (0.00-0.00); Lymphocytes # (Auto) 0.7 Thou/mm3 (1.0-4.8); Lymphocytes % (Auto) 5 % (10-50); Mean Corpuscular HGB Conc 30.4 g/dl (31.0-37.0); Mean Corpuscular Hemoglobin 25.9 pg (25.0-35.0); Mean Corpuscular Volume 85 fL (80-100); Monocytes # (Auto) 0.8 Thou/mm3 (0.0-0.8); Monocytes % (Auto) 5 % (0-12); Neutrophils # (Auto) 12.9 Thou/mm3 (1.8-7.7); Neutrophils % (Auto) 87 % (37-80); Nucleated Red Blood Cell # 0.08 Thou/mm3 (0.00-0.00); Nucleated Red Blood Cell % 1 /100 WBC (0); Platelet Count 139 Thou/mm3 (140-440); RDW Standard Deviation 62.8 fL (35.1-43.9); Red Blood Count 4.56 Miln/mm3 (4.50-5.90); White Blood Count 14.9 Thou/mm3 (3.8-10.6)
[2025-06-04 06:27] LABS: Alanine Aminotransferase 56 U/L (10-49); Albumin, Serum 3.2 gm/dL (3.4-4.8); Albumin/Globulin Ratio 1.0 (1.2-2.2); Alkaline Phosphatase 76 U/L (46-116); Anion Gap 15 (7-16); Aspartate Amino Transferase 24 U/L (0-34); BUN/Creatinine Ratio 19 Ratio (12-20); Bilirubin,Total 1.6 mg/dL (0.3-1.2); Blood Urea Nitrogen 17 mg/dL (9-23); Calcium 8.6 mg/dL (8.3-10.6); Calcium (Corrected) 9.2 mg/dL (8.5-10.1); Carbon Dioxide 21.4 mMol/L (20.0-31.0); Chloride 98 mMol/L (98-107); Creatinine (Component) 0.9 mg/dL (0.6-1.3); Estimated Creatinine Clearance 93.4 mL/min (>60); Globulin 3.1 gm/dL (2.3-3.5); Glucose 146 mg/dL (74-106); Magnesium 1.6 mg/dL (1.6-2.6); Osmolality,Calculated 272 (275-295); Phosphorous 3.1 mg/dL (2.4-5.1); Potassium 3.4 mMol/L (3.4-5.1); Sodium 134 mMol/L (136-145); Total Protein 6.3 gm/dL (5.7-8.2); eGFR > 60 See Note
[2025-06-04 07:05] LABS: Partial Thromboplastin Time > 139.0 Seconds (22.0-36.0)
--- NOTE | 2025-06-04 07:45 | PC.NURSE ---
Contacted Dr. Sultana regarding low BP, drop in O2, and PTT result.
[2025-06-04] MEDS: RINGERS LACTATED 500 ML 500 ML 999 ML IV (07:59)
--- NOTE | 2025-06-04 08:09 | ESPR_ITS ---
Documentation for date of: 06/04/25 Subjective Subjective Interval history: Patient seen and examined at bedside; no acute events overnight. CXR showed bilateral pneumonia on 06-04-25, blood culture negative at 48h. Patient still has increased work of breathing today (on HFNC 40L @ 80%). ICU consulted, they said to increase diuresis and get an ABG. ABG showed ph 7.54, pC02 26, pO2 55. Per pathology, atypical epitheial cells, but not enough for definitive diagnosis; they suggest biopsy. Exam Vital Signs Temp Pulse Resp BP Pulse Ox O2 Del Method O2 Flow Rate 97.4 F 93 18 98/72 93 L BiPAP 30 06/04/25 04:00 06/04/25 07:31 06/04/25 07:31 06/04/25 04:00 06/04/25 07:31 06/04/25 04:00 06/04/25 04:00 FiO2 50 06/04/25 07:31 Narrative Exam General: Awake and in no acute distress; alert. moderately anxious. HEENT: PERRLA. Normocephalic, atraumatic, mucous membranes moist. Heart: Regular rate and rhythm, normal S1 and S2, no murmurs appreciated. Lungs: Decreased breath sounds bilaterally. Abdomen: Soft, mildly distended, nontender, positive bowel sounds. No guarding or rebound tenderness. Mild ascites. : Aguilar in place. Large left inguinal mass, no discoloration or tenderness. Neurologic: Alert and oriented x3, no gross neurological deficit, and patient able to move all 4 extremities. Extremities: 2+ pitting edema extending up to knees. Skin: No rash or ecchymoses. Objective Labs 06/04/25 04:41 06/04/25 04:41 Labs: Laboratory Results - last 24 hr 06/03/25 06/03/25 06/04/25 02:06 20:42 04:41 WBC 14.9 H RBC 4.56 Hgb 11.8 L Hct 38.8 L MCV 85 MCH 25.9 MCHC 30.4 L RDW Std Deviation 62.8 H Plt Count 139 L D Neut % (Auto) 87 H Lymph % (Auto) 5 L Young % (Auto) 5 Eos % (Auto) 0 Baso % (Auto) 0 Neut # (Auto) 12.9 H Lymph # (Auto) 0.7 L Young # (Auto) 0.8 Eos # (Auto) 0.0 Baso # (Auto) 0.0 Immature Gran # (Auto) 0.50 H Absolute Nucleated RBC 0.08 H Immature Gran % 3 H Nucleated RBC % 1 H APTT > 139.0 H* D Puncture Site Right Radial ABG pH 7.54 H ABG pCO2 26 L ABG pO2 60 L ABG HCO3 22 ABG O2 Saturation 88 L ABG Base Excess 0 FiO2 45 Sodium 134 L Potassium 3.4 Chloride 98 Carbon Dioxide 21.4 Anion Gap 15 BUN 17 Creatinine 0.9 Estim Creat Clear Calc 93.4 eGFR > 60 BUN/Creatinine Ratio 19 Glucose 146 H Calculated Osmolality 272 L Calcium 8.6 Corrected Calcium 9.2 Phosphorus 3.1 Magnesium 1.6 Total Bilirubin 1.6 H AST 24 ALT 56 H Alkaline Phosphatase 76 Total Protein 6.6 6.3 Albumin 3.2 L Globulin 3.3 3.1 Albumin/Globulin Ratio 1.0 L 1.0 L ABG Interpretation ABG results: 05/29/25 05/31/25 05/31/25 05:33 10:53 17:16 ABG pH 7.38 7.30 L 7.52 H D ABG pCO2 24 L 33 28 L ABG pO2 57 L* 125 H D 50 L* D ABG HCO3 14 L 16 L 23 ABG O2 Saturation 87 L 99 H 88 L ABG Base Excess -9 L -9 L 1 05/31/25 06/01/25 06/03/25 23:51 05:01 20:42 ABG pH 7.49 H 7.53 H 7.54 H ABG pCO2 29 L 27 L 26 L ABG pO2 57 L* 51 L* 60 L ABG HCO3 22 23 22 ABG O2 Saturation 91 88 L 88 L ABG Base Excess 0 1 0 Quality Measures Quality Measures VTE prophylaxis Assessment & Plan Assessment Current Active Medications: Generic Name Dose Route Start Last Admin Trade Name Freq PRN Reason Stop Dose Admin Acetaminophen 325 mg 05/29/25 12:07 06/02/25 23:46 Acetaminophen 325 Mg Tablet PO 06/28/25 12:06 325 mg Q6H PRN Administration Fever >101.5, Pain 1-3 Hydrocodone Bitart/Acetaminophen 1 tab 05/31/25 10:37 06/03/25 02:39 Hydrocodone/Apap 5/325 Tablet PO 06/05/25 10:36 1 tab Q6HR PRN Administration PAIN SCALE 4-10(Mod-Sev Albuterol/Ipratropium 3 ml 05/29/25 12:07 Albuterol/Ipratropium (Duoneb) Rt Becky 3 Ml Nebu INH 06/28/25 12:06 Q2HR PRN SHORTNESS OF BREATH OR WHEEZE Furosemide 40 mg 06/03/25 11:45 06/03/25 12:59 Furosemide Inj 10 Mg/Ml 4ml Vial IVP 07/03/25 11:44 40 mg QDAY COTY Administration Heparin Sodium/Dextrose 25,000 unit in 250 mls @ 14.696 mls/hr 05/29/25 12:15 06/04/25 07:12 Heparin In D5w Ivpb IV 06/12/25 12:14 0 units/kg/hr .Q17H1M COTY 0 mls/hr Protocol Titration 18 UNITS/KG/HR Levofloxacin/Dextrose 750 mg in 150 mls @ 100 mls/hr 06/01/25 10:30 06/03/25 08:42 Levaquin Ivpb IV 06/08/25 10:29 100 mls/hr QDAY COTY Administration Lactated Ringer's 500 mls @ 999 mls/hr 06/04/25 07:49 06/04/25 07:59 Lactated Ringers IV 06/04/25 08:19 999 mls/hr .Q31M ONE Administration Ipratropium Norco 0.5 mg 05/29/25 13:00 06/04/25 07:31 Ipratropium Rt 0.5 Mg/ 2.5 Ml Nebu INH 06/28/25 12:59 0.5 mg Q6HRRT COTY Administration Levalbuterol HCl 1.25 mg 05/29/25 13:00 06/04/25 07:31 Levalbuterol Rt 1.25 Mg/0.5 Ml Nebu INH 06/28/25 12:59 1.25 mg Q6HRRT COTY Administration Lorazepam 0.5 mg 06/03/25 09:28 06/03/25 18:16 Lorazepam 0.5 Mg Tablet PO 06/08/25 09:27 0.5 mg Q8HR PRN Administration ANXIETY Midodrine 5 mg 06/02/25 08:08 06/03/25 20:45 Midodrine 5 Mg Tablet PO 07/02/25 08:14 5 mg TID PRN Administration hypotension Nicotine 21 mg 05/29/25 12:15 06/03/25 08:42 Nicotine Patch 21 Mg/24 Hr Patch.Td24 TOP 06/28/25 12:14 21 mg QDAY CTOY Administration Ondansetron HCl 4 mg 05/29/25 12:07 Ondansetron Inj 2 Mg/Ml Inj 2 Ml IVP 06/28/25 12:06 Q6H PRN NAUSEA OR VOMITING Protocol Pantoprazole Sodium 40 mg 05/29/25 12:15 06/03/25 08:43 Pantoprazole Inj 40 Mg Vial IVP 06/28/25 12:14 40 mg QDAY COTY Administration Polyethylene Glycol 17 gm 06/02/25 10:30 06/03/25 08:43 Polyethylene Glycol 17 Gm Packet PO 07/02/25 10:29 17 gm QDAY COTY Administration Rifaximin 550 mg 06/01/25 10:30 06/03/25 20:47 Rifaximin 550 Mg Tablet PO 06/08/25 10:29 550 mg BID COTY Administration Sodium Chloride 3 ml 05/31/25 10:52 06/03/25 15:56 Sodium Chloride Rt Becky 0.9% 3 Ml Nebu INH 06/30/25 10:51 3 ml PRN PRN Administration SOLN Spironolactone 100 mg 06/03/25 11:45 06/03/25 12:59 Spironolactone 25 Mg Tablet PO 07/03/25 11:44 100 mg QDAY COTY Administration Plan Patient is a 64 year old male with past medical history of schizophrenia, COPD on supplemental home oxygen, chronic active smoker greater than 40 pack years, and status post right inguinal hernia repair in 2018 who presented to ED on 05/29/25 for shortness of breath. Patient was admitted telemetry for acute on chronic hypoxic respiratory failure, pleural effusion, pneumonia and pulmonary emboli, upgraded to ICU on 05/31 for worsening acute on chronic respiratory distress. Downgraded back to telemetry as patient has stabilized and tolerating high flow. #Acute on chronic hypoxic respiratory failure #?COPD exacerbation Likely secondary to pneumonia - Chronic smoking history - Presented with shortness of breath requiring 10 L supplemental oxygen at home. Per chart review patient usually uses a liters at home per brother. - Used rescue inhaler use for the past 2 weeks prior to admission - Lactic 9.0, Pro-Antony 1.33, WBC 14 with neutrophil dominance -CT showed bilateral pneumonia and left upper lobe and right lower lobe Treatment: - S/p BiPAP, tolerated high flow NC - Discontinue azithromycin, Zosyn and Vancomycin (05/29?06/01) - Start IV levofloxacin (06/01- -Levalbuterol/ipratropium every 6 hoursla - DuoNebs as needed - Wean oxygen as tolerated - lasix 40 qday - Midodrine 15 TID to prevent hypotension #Pneumonia Likely secondary to gram-negative versus gram-positive organisms #? Parapneumonic effusion - Presented with worsening breathing and increased oxygen requirements. No fevers at home. - Likely infectious in setting of Bacillus in pleural fluid - WBC 14 -> 16 -> 15 - Influenza A&B, COVID negative - UA clean - CT showed bilateral pneumonia and left upper lobe and right lower lobe - Sputum Gram stain showed rare WBCs, 1+ GPC, 1+ GNR - Pleural fluid culture 05/29 grew Bacillus (likely cereus) Treatment: - Discontinued azithromycin, Zosyn and vancomycin - Started on IV levofloxacin - Monitor a.m. CBC - Wean oxygen as tolerated - Follow up repeat pleural studies and cytology - lasix 40 qday #Bilateral pulmonary embolisms Likely secondary to hypercoagable state in setting of malignancy - Presented with shortness of breath requiring 10 L supplemental oxygen at home. 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 -S/p thoracentesis, -750 cc straw colored fluid -Per lights criteria, fluid is exudative, likely secondary to malignancy - Pleural fluid culture 05/29 grew Bacillus (likely cereus) - CT head with and without contrast showed no cranial masses Plan: - S/p repeat right thoracentesis, -1200 cc red tinged fluid - Oncology recommended lung biopsy - Ordered CT lung biopsy per oncology recommendations; on hold at this time due to heparinization - Per pathology, atypical epitheial cells, but not enough for definitive diagnosis of maligancy; they suggest biopsy. #Cirrhosis #Transaminitis (improving) #Hyperbilirubinemia #Anasarca -patient consumed moderate amount of alcohol for many years -Has elevated INR and thrombocytopenia, indicative of chronic pathology -On exam, mild ascites and anasarca, improved s/p diuresis -AST 436 -> 41 - ALT 398 -> 105 Hepatitis panel non reactive Plan: - spiranolactone 100 mg daily - rifaximin 550 mg BID - Recommend patient follow up outpatient with hepatology/GI #Lactic acidosis type A & B (improving) -Multifactorial: Type A in setting of hypoxia versus type B in setting of cirrhosis/malignancy - Lactic acid 9 -> 3.4, likely persistent in setting of cirrhosis #SURYA -Hemoglobin 12.4 -Iron studies showed low iron and iron saturation, ferritin and TIBC within normal limits Treatment: -No active treatment at this time -Consider starting on iron once infection cleared #History of schizophrenia #Agitation/Anxiety - Per patient, he had been diagnosed years ago by PCP, now retired - Not on any psych medication - During rapid, patient was agitated with increased work of breathing, causing him to desaturate to 80%. Wanted to removed the BiPAP mask. Treatment: - Not currently on any psych medications - Hydroxyzine as needed for agitation - Follow-up with family or PCP regarding diagnosis - Avoid overuse of benzodiazepines as may contribute to decreased respiratory drive Health maintenance: Diet: NPO DVT prophylaxis: Heparin drip Aguilar: None Lines: PIV CODE STATUS: Full This case was discussed with my attending physician, Dr. Sultana, and senior resident, Dr. Perez. Dedrick Raza, PGY1 Senior Resident Attestation: The patient reported still having increased work of breathing today, ICU was consulted for low blood pressure, but recommended increasing midodrine dose and adding Lasix for volume overload. Pleural fluid analysis pathology was nonconclusive, and recommended lung biopsy. Will continue with heparin drip for pulmonary embolism, IV levofloxacin for pneumonia and continue with DuoNeb for COPD exacerbation. I discussed with and supervised the international sales manager physician involved in the care of this patient. I personally saw and examined the patient and discussed the assessment and plan with the entire medicine team, including my attending. I agree with the assessment and plan as documented above. Gerber Perez MD PGY3 Internal Medicine Attending Provider Attestation/Addendum I have discussed and was present for the essential components of the history, physical examination, diagnosis, and treatment plan with the resident. I agree with the patient's care as documented by the resident and amended herein by me. Per Sultana DO. Although this document has been carefully reviewed, there may still be some phonetic and other typographical errors. These errors are purely grammatical due to imperfections in the software program and should not be construed in any way to compromise the substance of the patient's medical care during this visit.
--- NOTE | 2025-06-04 08:47 | PC.SS ---
Follow up note: Pt is on Bipap. Pt possible transfer to ICU.
[2025-06-04] MEDS: Heparin/D5w 25K 250 ML Ivpb 25,000 UNIT/250 ML BAG 13.464 UNIT IV (09:04)
[2025-06-04] MEDS: NICOTINE PATCH 21 MG/24 HR PATCH.TD24 TOP (09:08)
[2025-06-04] MEDS: LEVOFLOXACIN/D5W 750MG IVPB 750 MG/150 ML BAG 100 MG IV (09:08)
[2025-06-04 10:26] LABS: Base Excess 1 (-3-3); HCO3 22 mEq/L (20-26); Inspired Oxygen, FIO2 80 %; O2 Saturation 91 % (91-98); PCO2 26 mmHg (32.0-48.0); pH, Arterial 7.54 (7.35-7.45)
[2025-06-04] MEDS: Magnesium Sulfate 4 GM Ivpb 4 GM/50 ML BAG IV (10:36)
[2025-06-04] MEDS: MIDODRINE 5 MG TABLET 15 MG PO ×2 (10:36→21:03)
[2025-06-04 10:37] LABS: Allen Test Performed/OK; Puncture Site Left Radial
[2025-06-04 10:39] LABS: PO2 55 mmHg (83-108)
[2025-06-04] MEDS: FUROSEMIDE INJ 10 MG/ML 4ML VIAL 40 MG IVP (11:24)
[2025-06-04] MEDS: HYDROcodone/APAP 5/325 TABLET 1 TAB PO ×2 (11:29→21:03)
--- NOTE | 2025-06-04 11:47 | ESCONSULT_ITS ---
<Statement entered by Arian Gann MD - 06/04/25 18:23> I have reviewed the note and agree with the resident's assessment & plan with exceptions as below. I have personally reviewed labs, imaging, home meds/prior records, examined the patient, formulated and discussed management plan with the IM team. ICU consulted for this patient for worsening respiratory distress and tachypnea. Bedside ultrasound was used to evaluate for pleural fluid in which there was a tappable area on right lung. Thoracentesis was performed and removed 1.5 L, sample sent out for pleural fluid analysis in addition to cytology. After thoracentesis, chest x-ray was ordered which showed small apical pneumothorax on right side. Repeat chest x-ray was ordered for 6 hours later in addition to a morning chest x-ray further evaluation to see if lung has expanded. We also encourage incentive spirometry use. Serum lactate dehydrogenase ordered for the morning for further evaluation of effusion and determine if it is exudative or transitive are not. Patient would benefit with PleurX catheter upon discharge as patient will likely reaccumulate pleural fluid as this is the patient's third thoracentesis upon admission. In addition we recommend chest physiotherapy and scheduled breathing treatments every 4 hours. ICU will remain available for further consultation and recommendations. #Acute hypoxic respiratory failure #Community acquired pneumonia #Right pleural effusion, status post thoracentesis #Small apical pneumothorax, right #Lung cancer Arian Gann, PGY-2 Internal Medicine HPI Data of Consult Requesting Physician: Mike Sultana DO Admitting Provider: Meri Shetty DO Attending Provider: Mike Sultana DO Primary Care Provider: BC Caraballo Consult Narrative History of present illness: Patient is a 64 year old male with past medical history of schizophrenia, COPD on supplemental home oxygen, chronic active smoker greater than 40 pack years, and status post right inguinal hernia repair in 2018 who presented to ED on 05/29/25 for shortness of breath. Patient was admitted telemetry for acute on chronic hypoxic respiratory failure, pleural effusion, pneumonia and pulmonary emboli, upgraded to ICU on 05/31 for worsening acute on chronic respiratory distress. Downgraded back to telemetry as patient has stabilized and tolerating high flow. ICU consulted to help manage patient's breathing difficulties. Currently patient is on telemetry with high flow nasal cannula 40L/min 80% O2. He is currently saturating at 92%. He takes a breath with each word. He states that this is how he breathes outside of the hospital too, however, patient is not the best historian. Currently his BIPAP settings are IPAP 10 EPAP 5 RR 12 FiO2 50%. Currently his lung biopsy is pending because IR does not want to bx while patient is heparinized. His recent thoracentesis fluid grew bacillus being treated with levofloxacin IV. His pleural fluid analysis was exudative, most likely concerning for recurrent malignant pleural effusions. It was considered to start him back on bipap, however, patient has increased anxiety on bipap and his respiratory rate increased the most recent times. ICU team considers best plan to improve breathing symptoms would be to redo a thoracentesis since most recent xray shows fluid reaccumulation and bedside US shows fluid pockets. cc:: cc: Mike Sultana, DO Exam Vital Signs Temp Pulse Resp BP Pulse Ox O2 Del Method O2 Flow Rate 97.2 F 97 27 H 103/76 90 L BiPAP 30 06/04/25 08:00 06/04/25 11:24 06/04/25 09:15 06/04/25 11:24 06/04/25 09:15 06/04/25 08:00 06/04/25 08:00 FiO2 50 06/04/25 08:00 Narrative Exam General: Awake and in no acute distress; alert. moderately anxious. HEENT: PERRLA. Normocephalic, atraumatic, mucous membranes moist. Heart: Regular rate and rhythm, normal S1 and S2, no murmurs appreciated. Lungs: Decreased breath sounds bilaterally. Abdomen: Soft, mildly distended, nontender, positive bowel sounds. No guarding or rebound tenderness. Mild ascites. : Aguilar in place. Large left inguinal mass, no discoloration or tenderness. Neurologic: Alert and oriented x3, no gross neurological deficit, and patient able to move all 4 extremities. Extremities: 2+ pitting edema extending up to knees. Skin: No rash or ecchymoses. Results Labs 06/04/25 04:41 06/04/25 04:41 Labs: Short CBC 06/04/25 Range/Units 04:41 WBC 14.9 H (3.8-10.6) Thou/mm3 Hgb 11.8 L (13.5-16.0) g/dL Hct 38.8 L (41.0-53.0) % Plt Count 139 L D (140-440) Thou/mm3 BMP 06/04/25 04:41 Sodium 134 L Potassium 3.4 Chloride 98 Carbon Dioxide 21.4 BUN 17 Creatinine 0.9 Glucose 146 H Calcium 8.6 Liver Function 06/04/25 Range/Units 04:41 Total Bilirubin 1.6 H (0.3-1.2) mg/dL AST 24 (0-34) U/L ALT 56 H (10-49) U/L Alkaline Phosphatase 76 (46-116) U/L Albumin 3.2 L (3.4-4.8) gm/dL ABG Interpretation ABG results: 05/29/25 05/31/25 05/31/25 05:33 10:53 17:16 ABG pH 7.38 7.30 L 7.52 H D ABG pCO2 24 L 33 28 L ABG pO2 57 L* 125 H D 50 L* D ABG HCO3 14 L 16 L 23 ABG O2 Saturation 87 L 99 H 88 L ABG Base Excess -9 L -9 L 1 05/31/25 06/01/25 06/03/25 23:51 05:01 20:42 ABG pH 7.49 H 7.53 H 7.54 H ABG pCO2 29 L 27 L 26 L ABG pO2 57 L* 51 L* 60 L ABG HCO3 22 23 22 ABG O2 Saturation 91 88 L 88 L ABG Base Excess 0 1 0 06/04/25 10:17 ABG pH 7.54 H ABG pCO2 26 L ABG pO2 55 L* ABG HCO3 22 ABG O2 Saturation 91 ABG Base Excess 1 Quality Measures Quality Measures VTE prophylaxis Medications Home Medications and Allergies Home Medications ?Medication ?Instructions ?Recorded ?Confirmed ?Type No Known Home Medications 03/02/1805/04 History Allergies Allergy/AdvReac Type Severity Reaction Status Date / Time No Known Allergies Allergy Unverified 03/06/18 10:09 Visit Medications Acetaminophen (Acetaminophen 325 Mg Tablet) 325 mg PO Q6H PRN PRN Reason: Fever >101.5, Pain 1-3 Stop: 06/28/25 12:06 Last Admin: 06/02/25 23:46 Dose: 325 mg Hydrocodone Bitart/Acetaminophen (Hydrocodone/Apap 5/325 Tablet) 1 tab PO Q6HR PRN PRN Reason: PAIN SCALE 4-10(Mod-Sev Stop: 06/05/25 10:36 Last Admin: 06/04/25 11:29 Dose: 1 tab Albuterol/Ipratropium (Albuterol/Ipratropium (Duoneb) Rt Becky 3 Ml Nebu) 3 ml INH Q2HR PRN PRN Reason: SHORTNESS OF BREATH OR WHEEZE Stop: 06/28/25 12:06 Furosemide (Furosemide Inj 10 Mg/Ml 4ml Vial) 40 mg IVP QDAY [facility] Stop: 07/03/25 11:44 Last Admin: 06/03/25 12:59 Dose: 40 mg Levofloxacin/Dextrose (Levaquin Ivpb) 750 mg in 150 mls @ 100 mls/hr IV QDAY [facility] Stop: 06/08/25 10:29 Last Admin: 06/04/25 09:08 Dose: 100 mls/hr Magnesium Sulfate (Magnesium Sulfate Ivpb) 4 gm in 50 mls @ 12.5 mls/hr IV X1 ONE Stop: 06/04/25 12:16 Last Admin: 06/04/25 10:36 Dose: 12.5 mls/hr Heparin Sodium/Dextrose (Heparin In D5w Ivpb) 25,000 unit in 250 mls @ 14.256 mls/hr IV .[id number] [facility]; Protocol Stop: 06/12/25 12:14 Last Admin: 06/04/25 09:04 Dose: 17 units/kg/hr, 13.464 mls/hr Ipratropium [place] (Ipratropium Rt 0.5 Mg/ 2.5 Ml Nebu) 0.5 mg INH Q6HRRT [facility] Stop: 06/28/25 12:59 Last Admin: 06/04/25 07:31 Dose: 0.5 mg Levalbuterol HCl (Levalbuterol Rt 1.25 Mg/0.5 Ml Nebu) 1.25 mg INH Q6HRRT [facility] Stop: 06/28/25 12:59 Last Admin: 06/04/25 07:31 Dose: 1.25 mg Lorazepam (Lorazepam 0.5 Mg Tablet) 0.5 mg PO Q8HR PRN PRN Reason: ANXIETY Stop: 06/08/25 09:27 Last Admin: 06/03/25 18:16 Dose: 0.5 mg Midodrine (Midodrine 5 Mg Tablet) 15 mg PO TID [facility] Stop: 07/04/25 10:19 Last Admin: 06/04/25 10:36 Dose: 15 mg Nicotine (Nicotine Patch 21 Mg/24 Hr Patch.Td24) 21 mg TOP QDAY [facility] Stop: 06/28/25 12:14 Last Admin: 06/04/25 09:08 Dose: 21 mg Ondansetron HCl (Ondansetron Inj 2 Mg/Ml Inj 2 Ml) 4 mg IVP Q6H PRN; Protocol PRN Reason: NAUSEA OR VOMITING Stop: 06/28/25 12:06 Pantoprazole Sodium (Pantoprazole Inj 40 Mg Vial) 40 mg IVP QDAY [facility] Stop: 06/28/25 12:14 Last Admin: 06/04/25 09:08 Dose: 40 mg Polyethylene Glycol (Polyethylene Glycol 17 Gm Packet) 17 gm PO QDAY [facility] Stop: 07/02/25 10:29 Last Admin: 06/04/25 09:21 Dose: Not Given Rifaximin (Rifaximin 550 Mg Tablet) 550 mg PO BID [facility] Stop: 06/08/25 10:29 Last Admin: 06/04/25 09:21 Dose: Not Given Sodium Chloride (Sodium Chloride Rt Becky 0.9% 3 Ml Nebu) 3 ml INH PRN PRN PRN Reason: SOLN Stop: 06/30/25 10:51 Last Admin: 06/03/25 15:56 Dose: 3 ml Spironolactone (Spironolactone 25 Mg Tablet) 100 mg PO QDAY [facility] Stop: 07/03/25 11:44 Last Admin: 06/04/25 09:21 Dose: Not Given Discontinued Medications Albuterol (Albuterol Rt 2.5 Mg/0.5 Ml Nebu) 5 mg INH X1 ONE Stop: 05/29/25 06:35 Last Admin: 05/29/25 06:52 Dose: 5 mg Albuterol (Albuterol Rt 2.5 Mg/0.5 Ml Nebu) 5 mg INH X1 ONE Stop: 05/31/25 10:53 Last Admin: 05/31/25 10:59 Dose: 5 mg Enoxaparin Sodium (Enoxaparin Sod Inj 80 Mg/0.8 Ml Syringe) 80 mg SC X1 ONE Stop: 05/29/25 09:26 Last Admin: 05/29/25 10:48 Dose: Not Given Furosemide (Furosemide Inj 10 Mg/Ml 4ml Vial) 40 mg IVP X1 ONE Stop: 05/29/25 05:21 Last Admin: 05/29/25 05:31 Dose: 40 mg Furosemide (Furosemide Inj 10 Mg/Ml 4ml Vial) 40 mg IVP X1 ONE Stop: 05/30/25 16:51 Last Admin: 05/30/25 18:35 Dose: 40 mg Furosemide (Furosemide Inj 10 Mg/Ml 4ml Vial) 40 mg IVP X1 ONE Stop: 05/31/25 11:05 Last Admin: 05/31/25 12:46 Dose: Not Given Furosemide (Furosemide Inj 10 Mg/Ml Vial 2 Ml) 20 mg IVP X1 ONE Stop: 06/01/25 01:52 Last Admin: 06/01/25 02:00 Dose: 20 mg Furosemide (Furosemide Inj 10 Mg/Ml 4ml Vial) 40 mg IVP X1 ONE Stop: 06/01/25 07:56 Last Admin: 06/01/25 08:13 Dose: 40 mg Furosemide (Furosemide Inj 10 Mg/Ml 4ml Vial) 40 mg IVP X1 ONE Stop: 06/04/25 11:00 Last Admin: 06/04/25 11:24 Dose: 40 mg Haloperidol Lactate (Haloperidol Lact Inj 5 Mg/Ml Vial) 5 mg IV X1 ONE Stop: 05/31/25 10:41 Last Admin: 05/31/25 10:44 Dose: 5 mg Haloperidol Lactate (Haloperidol Lact Inj 5 Mg/Ml Vial) 2.5 mg IV X1 ONE Stop: 06/03/25 18:48 Last Admin: 06/03/25 18:52 Dose: 2.5 mg Heparin Sodium (Porcine) (Heparin Sod Inj 5000 Unit/Ml Vial) 6,550 unit 80 unit/kg (6550 unit) IV X1 ONE; Protocol Stop: 05/29/25 12:15 Last Admin: 05/29/25 14:35 Dose: 6,550 unit Heparin Sodium (Porcine) (Heparin Sod Inj 5000 Unit/Ml Vial) 3,100 unit 40 unit/kg (3100 unit) IV X1 ONE Stop: 05/30/25 13:19 Last Admin: 05/30/25 13:41 Dose: 3,100 unit Heparin Sodium (Porcine) (Heparin Sod Inj 5000 Unit/Ml Vial) 3,200 unit IVP X1 ONE Stop: 06/01/25 07:38 Last Admin: 06/01/25 07:58 Dose: 3,200 unit Heparin Sodium (Porcine) (Heparin Sod Inj 5000 Unit/Ml Vial) 3,240 unit IVP X1 ONE Stop: 06/02/25 01:02 Last Admin: 06/02/25 01:20 Dose: 3,240 unit Hydroxyzine HCl (Hydroxyzine Hcl 25 Mg Tablet) 25 mg PO X1 ONE Stop: 05/30/25 07:36 Last Admin: 05/30/25 09:22 Dose: 25 mg Hydroxyzine HCl (Hydroxyzine Hcl 25 Mg Tablet) 25 mg PO X1 ONE Stop: 06/03/25 16:12 Last Admin: 06/03/25 17:28 Dose: 25 mg Sodium Chloride (Ns) 2,328 mls @ 2,328 mls/hr 30 ml/kg infuse over 60 min (2328 ml) IV .Q1H ONE Stop: 05/29/25 07:34 Last Admin: 05/29/25 10:47 Dose: Not Given Piperacillin/Tazobactam/Dextrose (Zosyn) 3.375 gm in 50 mls @ 100 mls/hr IV X1 ONE Stop: 05/29/25 07:04 Last Infusion: 05/29/25 07:17 Dose: Infused Ceftriaxone Sodium 2 gm/ (Sodium Chloride) 50 mls @ 100 mls/hr IV X1 ONE Stop: 05/29/25 09:24 Last Infusion: 05/29/25 11:29 Dose: Infused Azithromycin 500 mg/ Sodium (Chloride) 250 mls @ 250 mls/hr IV QDAY [facility] Stop: 06/01/25 08:55 Last Admin: 05/31/25 09:59 Dose: 250 mls/hr Heparin Sodium/Dextrose (Heparin In D5w Ivpb) 25,000 unit in 250 mls @ 14.696 mls/hr IV .Q17H1M [facility]; Protocol Stop: 06/12/25 12:14 Last Titration: 06/04/25 07:12 Dose: 0 units/kg/hr, 0 mls/hr Ceftriaxone Sodium/Dextrose (Rocephin/D5w 1gm Iv Premix) 1 gm in 50 mls @ 100 mls/hr IV QDAY [facility] Stop: 06/06/25 08:59 Piperacillin/Tazobactam/Dextrose (Zosyn) 3.375 gm in 50 mls @ 12.5 mls/hr IV Q8HR [facility]; Protocol Stop: 06/05/25 13:59 Last Admin: 06/01/25 05:37 Dose: 12.5 mls/hr Vancomycin HCl (Vancomycin/Water 1250 Mg Ivpb) 250 mls @ 120 mls/hr IV BID@1000,2200 [facility]; Protocol Stop: 06/06/25 08:29 Last Admin: 06/01/25 10:38 Dose: Not Given Albumin Human (Albuminex 25% Ivpb) 25 gm in 100 mls @ 100 mls/hr IV X1 ONE Stop: 05/30/25 11:39 Last Infusion: 05/30/25 18:35 Dose: Infused Albumin Human (Albuminex 25% Ivpb) 25 gm in 100 mls @ 100 mls/hr IV QDAY [facility] Stop: 06/03/25 11:03 Last Admin: 06/03/25 08:42 Dose: 100 mls/hr Potassium Chloride (Kcl Ivpb) 10 meq in 100 mls @ 100 mls/hr IV Q1H [facility] Stop: 06/01/25 10:11 Last Admin: 06/01/25 08:36 Dose: Not Given Potassium Chloride (Kcl Ivpb) 10 meq in 100 mls @ 100 mls/hr IV Q1H [facility] Stop: 06/01/25 17:52 Last Admin: 06/01/25 17:34 Dose: 75 mls/hr Lactated Ringer's (Lactated Ringers) 500 mls @ 999 mls/hr IV .Q31M ONE Stop: 06/04/25 08:19 Last Admin: 06/04/25 07:59 Dose: 999 mls/hr Sodium Chloride (Ns) 250 mls @ 999 mls/hr IV .Q16M ONE Stop: 06/04/25 08:06 Last Admin: 06/04/25 08:04 Dose: Not Given Ipratropium [place] (Ipratropium Rt 0.5 Mg/ 2.5 Ml Nebu) 0.5 mg INH X1 ONE Stop: 06/01/25 01:52 Last Admin: 06/01/25 02:01 Dose: 0.5 mg Levalbuterol HCl (Levalbuterol Rt 1.25 Mg/0.5 Ml Nebu) 1.25 mg INH X1 ONE Stop: 06/01/25 01:52 Last Admin: 06/01/25 02:01 Dose: 1.25 mg Methylprednisolone Sodium Succinate (Methylprednisolone Sod Succ 62.5 Mg/Ml 2ml Vial) 125 mg IVP X1 ONE Stop: 05/29/25 06:35 Last Admin: 05/29/25 06:47 Dose: 125 mg Midazolam HCl (Midazolam Inj 1 Mg/Ml Vial 2 Ml) 2 mg IVP X1 ONE Stop: 05/31/25 10:48 Last Admin: 05/31/25 10:51 Dose: 2 mg Midazolam HCl (Midazolam Inj 1 Mg/Ml Vial 2 Ml) 1 mg IVP X1 ONE Stop: 06/01/25 02:31 Last Admin: 06/01/25 02:36 Dose: 1 mg Midodrine (Midodrine 5 Mg Tablet) 5 mg PO TID PRN PRN Reason: hypotension Stop: 07/02/25 08:14 Last Admin: 06/03/25 20:45 Dose: 5 mg Midodrine (Midodrine 5 Mg Tablet) 5 mg PO X1 ONE Stop: 06/04/25 00:41 Last Admin: 06/04/25 00:58 Dose: 5 mg Morphine Sulfate (Morphine Sulf Inj 4 Mg/Ml Vial) 2 mg IV X1 ONE Stop: 05/29/25 05:21 Last Admin: 05/29/25 05:31 Dose: 2 mg Nitroglycerin (Nitroglycerin Oint 2% 1 Inch Packet) 1 inch TOP X1 ONE Stop: 05/29/25 05:21 Last Admin: 05/29/25 05:30 Dose: 1 inch Pharmacy Consult (Vancomycin Pharmacy To Dose 1 Each Each) 1 each IV QDAY PRN PRN Reason: PROTOCOL Stop: 06/29/25 08:59 Potassium Chloride (Potassium Chloride 20 Meq Tabcr) 40 meq PO X1 ONE Stop: 05/30/25 08:06 Last Admin: 05/30/25 09:22 Dose: 40 meq Potassium Chloride (Potassium Chloride 10% 20 Meq/15 Ml Udc) 40 meq PO X1 ONE Stop: 05/31/25 09:38 Last Admin: 05/31/25 09:58 Dose: 40 meq Potassium Chloride (Potassium Chloride 10% 20 Meq/15 Ml Udc) 60 meq PO X1 ONE Stop: 06/01/25 08:16 Last Admin: 06/01/25 08:14 Dose: 60 meq Potassium Chloride (Potassium Chloride 10% 20 Meq/15 Ml Udc) 40 meq PO X1 ONE Stop: 06/01/25 08:11 Last Admin: 06/01/25 08:36 Dose: Not Given Potassium Chloride (Potassium Chloride 20 Meq Tabcr) 20 meq PO X1 ONE Stop: 06/01/25 15:53 Last Admin: 06/01/25 16:12 Dose: 20 meq Potassium Phos/Sodium Phos (Naph,[facility] Mbdb 1 Packet (1.5 Gm)) 1 packet PO X1 ONE Stop: 06/02/25 07:39 Last Admin: 06/02/25 08:16 Dose: 1 packet Potassium Phos/Sodium Phos (Naph,[facility] Mbdb 1 Packet (1.5 Gm)) 1 packet PO X1 ONE Stop: 06/02/25 08:16 Last Admin: 06/02/25 08:16 Dose: 1 packet Sodium Chloride (Sodium Chloride Rt Becky 0.9% 3 Ml Nebu) 3 ml INH PRN PRN PRN Reason: SOLN Stop: 06/28/25 06:33 Last Admin: 05/29/25 06:52 Dose: 3 ml Sodium Chloride (Sodium Chloride Rt Becky 0.9% 3 Ml Nebu) 3 ml INH PRN PRN PRN Reason: SOLN Stop: 06/28/25 12:06 Sodium Chloride (Sodium Chloride Rt 10% 15 Ml Nebu) 5 ml INH X1 ONE Stop: 05/29/25 12:21 Last Admin: 05/30/25 18:36 Dose: Not Given Sodium Chloride (Sodium Chloride Rt Becky 0.9% 3 Ml Nebu) 3 ml INH X1 ONE Stop: 06/01/25 01:53 Last Admin: 06/01/25 02:02 Dose: 3 ml Spironolactone (Spironolactone 25 Mg Tablet) 25 mg PO QDAY [facility] Stop: 07/01/25 10:29 Last Admin: 06/03/25 08:43 Dose: 25 mg Assessment & Plan Plan Patient is a 64 year old male with past medical history of schizophrenia, COPD on supplemental home oxygen, chronic active smoker greater than 40 pack years, and status post right inguinal hernia repair in 2018 who presented to ED on 05/29/25 for shortness of breath. Patient was admitted telemetry for acute on chronic hypoxic respiratory failure, pleural effusion, pneumonia and pulmonary emboli, upgraded to ICU on 05/31 for worsening acute on chronic respiratory distress. Downgraded back to telemetry as patient has stabilized and tolerating high flow. ICU consulted to help manage patient's breathing difficulties. Thoracentesis was performed on R lung, 1.5L of strawberry fluid removed. Patient reported improved breathing. Fluids sent out for analysis. 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 CVS No active problems PULM #Acute on chronic hypoxic respiratory failure Ddx R upper lung tumor, bilateral pulmonary embolisms, COPD exacerbation Patient had a recent thoracentesis that was Light's criteria positive for exudative effusions. He was recently found to have a pulmonic mass that has yet to be biopsied, however there is a high clinical concern for cancer since patient has 40 pack year smoking history. Fluid has also re-accumulated in last 3 days while on Levofloxacin treating his bacillus species that was cultured. Patient takes breaths between words and has elevated respiratory rate that worsens with Bipap due to increased anxiety. Thoracentesis was performed on R lung, 1.5L of strawberry fluid removed. Patient reported improved breathing. Fluids sent out for analysis. Plan: -Repeat thoracentesis: 1.5L of strawberry colored fluid drained -Samples sent for cytology work up -Complete lung biopsy when possible -Consider pleurx catheter when patient is ready to discharge if effusions recur #R sided pleural effusion s/p thoracentesis Patient had recent thoracentesis 3 days ago with 1.2 L drained of straw fluid, Light's criteria positive for exudative effusion. Today patient had increased work of breathing and respiratory rate was increased. CXR showed fluid reaccumulation and bedside US revealed right lung fluid pockets that were easily accessible. 1.5L of fluid was successfully drained from R lung. FUP CXR showed apical pnuemothorax. Fluid re-0accumulation most likely secondary to lung mass c/f malignancy pending lung bx. Plan: -FUP pleural fluid studies -IS ordered and educated the patient on -FUP CXR Q6HR -Monitor for increased work of breathing -Primary team notified -Night team notified #CAP Pleural fluid cx grew bacillus on 05/29. Currently being treated with levofloxacin. Plan -Continue management per primary team #COPD Exacerbation Patient is on 10L home O2 with 40 pack year smoking history who is currently still smoking. Primary team has patient on high flow nasal cannula and bipap at night. Plan -Continue management per primary team #Bilateral pulmonary embolisms CTA showed bilateral pulmonary arterial emboli. Currently on heparin. Plan -Continue management per primary team GI #Cirrhosis #Hyperbilirubinemia #Anasarca Plan -Continue management per primary team RENAL No active problems No active problems ENDO No active problems HEME #Lactic acidosis Multifactorial: Type A in setting of hypoxia versus type B in setting of cirrhosis/malignancy. Lactic acid 9 -> 3.4, likely persistent in setting of cirrhosis Plan: -Continue management per primary team #SURYA Hemoglobin 12.4. Iron studies showed low iron and iron saturation, ferritin and TIBC within normal limits Plan: -Continue management per primary team ID Pleural fluid cx grew bacillus on 05/29. Currently being treated with levofloxacin. Plan -Continue management per primary team Patient examined and plan discussed with attending Dr. Jolly and supervising resident Dr. Gann. Note Written by Charlie Luna PGY-1
[2025-06-04 14:05] LABS: Cocci Serology, IgM Negative (Negative)
[2025-06-04 15:41] LABS: INR 1.4 (0.9-1.3); Prothrombin Time 14.6 Seconds (9.0-12.2)
--- NOTE | 2025-06-04 15:57 | PD.RESPROC ---
PROCEDURES: Procedure Date / Time 06/04/25 15:00 Procedural Time Out Time out performed: yes, time out performed. Thoracentesis Indication(s): symptomatic Pleural Effusion Informed consent obtained from: patient Time out done, and the following verified: correct patient, side and site, procedure, patient position and implants and/or equipment Ultrasound used: Yes Procedure location: rt. post pleural space Amount pleural fluid removed (ml): 1,500 EBL(ml): 2 Procedure comment: INDICATION: Recurrent pleural effusions PROCEDURE EPILEPSY PHYSICIAN: Dr. Charlie Luna ATTENDING PHYSICIAN: Dr. Jolly In Attendance yes CONSENT: yes During the informed consent discussion regarding the procedure, or treatment, I explained the following to the patient/designee: a. Nature of the procedure or treatment and who will perform the procedure or treatment. b. Necessity for procedure and the possible benefits. c. Risks and complications (most common and serious). d. Alternative treatments and the risks, benefits and side effects of each (including no treatment). e. Likelihood of the patient achieving his/her goals without this procedure and surgery treatment. f. Problems that might occur during the recuperation. g. Conflicts of interest, if any PROCEDURE SUMMARY: A time out was performed and the chest x-ray was reviewed, the appropriate side was confirmed and marked. My hands were washed immediately prior to the procedure. I wore a surgical cap, mask with protective eyewear, sterile gown and sterile gloves throughout the procedure. The patient was prepped and draped in a sterile manner using chlorhexidine scrub after the appropriate level was percussed and confirmed by ultrasound. 1% lidocaine was used to anesthesize the skin, subcutaneous tissue, superior aspect of the rib periosteum and parietal pleura. A finder needle was then introduced over the superior aspect of the rib to locate the pleural fluid; strawberry red colored fluid was aspirated at a depth of approximately 5 cm. The [id number] needle was then introduced through the skin incision into the pleural space using negative aspiration pressure and the red colormetric indicator to confirm appropriate positioning of the needle. The thoracentesis catheter was then threaded without difficulty. 1500 ml of red colored fluid was removed without difficulty. The catheter was then removed. No immediate complications were noted during the procedure. A post-procedure chest x-ray is pending at the time of this note. The fluid will be sent for studies. Estimated blood loss is 2mL.
--- NOTE | 2025-06-04 16:29 | XR_ITS ---
EXAMINATION: AP chest single view TECHNIQUE: AP portable upright chest single view Date and time: 2024, 1648 hours, comparison June 04, 2025 1734 hours INDICATIONS: Post thoracentesis FINDINGS: Small right apical pneumothorax, less than 5% Diffuse severe pneumonia ARDS left lung Large pulmonary mass right upper lobe Blunting of the right lateral costophrenic angle Impression: Small right apical pneumothorax, recommend continued short-term follow-up chest films to document satisfactory expansion right lung
[2025-06-04] MEDS: ALBUMIN HUMAN 25% IVPB 12.5 GM/50 ML BTL IV (16:54)
[2025-06-04 17:38] LABS: Partial Thromboplastin Time 32.3 Seconds (22.0-36.0)
[2025-06-04 18:06] LABS: Pleural Fluid Mononuclear 49.3 %; Pleural Fluid Polynuclear 50.7 %; Pleural Fluid WBC 2183 /cmm
[2025-06-04 18:12] LABS: Pleural Fluid Appearance Clear; Pleural Fluid Color Colorless
[2025-06-04 18:13] LABS: Pleural Fluid RBC 23000 /cmm
[2025-06-04 18:16] LABS: Amylase,Pleural Fluid < 20 IU/L; Glucose,Pleural Fluid 90 mg/dL; LDH,Pleural Fluid 378 IU/L; Protein Total,Pleural Fluid 3.3 g/dL
[2025-06-04] MEDS: HEPARIN SOD INJ 5000 UNIT/ML VIAL 6350 UNIT IVP (18:43)
[2025-06-04 19:21] LABS: LDH (Lactate Dehydrogenase) 301 U/L (120-246)
--- NOTE | 2025-06-04 21:00 | XR_ITS ---
EXAMINATION: AP chest single view TECHNIQUE: AP portable upright chest single view Date and time: May 05, 2025, 2019 hours INDICATIONS: Small pneumothorax post thoracentesis today FINDINGS: Fluid caps the right lung at the site of the prior pneumothorax Lung is satisfactorily expanded Otherwise no change in the chest IMPRESSION: Right lung is well expanded
[2025-06-04] MEDS: ALBUTEROL/IPRATROPIUM (Duoneb) RT SOL 3 ML NEBU INH (21:11)
[2025-06-05] VITALS (22 sets, daily range): BP systolic 84–114; BP diastolic 62–88; PULSE 85–123; RESP 12–34; TEMP 36.2–37.1; O2SAT 87–94; BMI 23.4
[2025-06-05 01:51] LABS: Partial Thromboplastin Time 53.4 Seconds (22.0-36.0)
--- NOTE | 2025-06-05 05:00 | XR_ITS ---
EXAMINATION: AP chest single view TECHNIQUE: AP portable upright chest single view Date and time: June 05, 2025, 0533 hours, comparison June 04, 2025 INDICATIONS: Small pneumothorax on the right post thoracentesis FINDINGS: Lungs are well-expanded on this study Large pulmonary mass right upper lobe Extensive parenchymal disease both lungs, diffuse in the left lung Mildly enlarged cardiac contour IMPRESSION: No pneumothorax currently identified
[2025-06-05] MEDS: HYDROcodone/APAP 5/325 TABLET 1 TAB PO (05:04)
[2025-06-05] MEDS: MIDODRINE 5 MG TABLET 15 MG PO ×2 (05:05→15:28)
[2025-06-05 06:24] LABS: Basophils # (Auto) 0.0 Thou/mm3 (0.0-0.2); Basophils % (Auto) 0 % (0-2.5); Eosinophils # (Auto) 0.0 Thou/mm3 (0.0-0.5); Eosinophils % (Auto) 0 % (0-10); Hematocrit 40.1 % (41.0-53.0); Hemoglobin 12.4 g/dL (13.5-16.0); Immature Granulocytes Auto 0.92 Thou/mm3 (0.00-0.00); Lymphocytes # (Auto) 1.0 Thou/mm3 (1.0-4.8); Lymphocytes % (Auto) 7 % (10-50); Mean Corpuscular HGB Conc 30.9 g/dl (31.0-37.0); Mean Corpuscular Hemoglobin 26.1 pg (25.0-35.0); Mean Corpuscular Volume 84 fL (80-100); Monocytes # (Auto) 0.7 Thou/mm3 (0.0-0.8); Monocytes % (Auto) 5 % (0-12); Neutrophils # (Auto) 12.1 Thou/mm3 (1.8-7.7); Neutrophils % (Auto) 82 % (37-80); Nucleated Red Blood Cell # 0.07 Thou/mm3 (0.00-0.00); Nucleated Red Blood Cell % 1 /100 WBC (0); Platelet Count 134 Thou/mm3 (140-440); RDW Standard Deviation 62.0 fL (35.1-43.9); Red Blood Count 4.75 Miln/mm3 (4.50-5.90); White Blood Count 14.8 Thou/mm3 (3.8-10.6)
[2025-06-05 06:36] LABS: Alanine Aminotransferase 49 U/L (10-49); Albumin, Serum 3.5 gm/dL (3.4-4.8); Albumin/Globulin Ratio 1.2 (1.2-2.2); Alkaline Phosphatase 76 U/L (46-116); Anion Gap 13 (7-16); Aspartate Amino Transferase 26 U/L (0-34); BUN/Creatinine Ratio 22 Ratio (12-20); Bilirubin,Total 1.6 mg/dL (0.3-1.2); Blood Urea Nitrogen 22 mg/dL (9-23); Calcium 9.1 mg/dL (8.3-10.6); Calcium (Corrected) 9.5 mg/dL (8.5-10.1); Carbon Dioxide 19.6 mMol/L (20.0-31.0); Chloride 99 mMol/L (98-107); Creatinine (Component) 1.0 mg/dL (0.6-1.3); Estimated Creatinine Clearance 84.1 mL/min (>60); Globulin 3.0 gm/dL (2.3-3.5); Glucose 102 mg/dL (74-106); LDH (Lactate Dehydrogenase) 229 U/L (120-246); Magnesium 2.0 mg/dL (1.6-2.6); Osmolality,Calculated 267 (275-295); Phosphorous 2.8 mg/dL (2.4-5.1); Potassium 3.9 mMol/L (3.4-5.1); Sodium 132 mMol/L (136-145); Total Protein 6.5 gm/dL (5.7-8.2); eGFR > 60 See Note
[2025-06-05] MEDS: LEVALBUTEROL RT 1.25 MG/0.5 ML NEBU INH ×5 (07:14→22:20)
[2025-06-05] MEDS: IPRATROPIUM RT 0.5 MG/ 2.5 ML NEBU INH ×5 (07:14→22:20)
[2025-06-05] MEDS: SPIRONOLACTONE 25 MG TABLET 100 MG PO (09:13)
[2025-06-05] MEDS: NICOTINE PATCH 21 MG/24 HR PATCH.TD24 TOP (09:14)
[2025-06-05] MEDS: FUROSEMIDE INJ 10 MG/ML 4ML VIAL 40 MG IVP (09:15)
[2025-06-05] MEDS: LEVOFLOXACIN/D5W 750MG IVPB 750 MG/150 ML BAG 100 MG IV (09:30)
[2025-06-05 10:18] LABS: Partial Thromboplastin Time 49.6 Seconds (22.0-36.0)
[2025-06-05] MEDS: HEPARIN SOD INJ 5000 UNIT/ML VIAL 3100 UNIT IVP (10:43)
[2025-06-05] MEDS: Heparin/D5w 25K 250 ML Ivpb 25,000 UNIT/250 ML BAG 15.048 UNIT IV (10:45)
[2025-06-05 12:11] LABS: Cocci Serology, IgG Negative (Negative)
--- NOTE | 2025-06-05 14:16 | ESPR_ITS ---
Documentation for date of: 06/05/25 Subjective Subjective Interval history: Patient seen and examined at bedside; no acute events overnight. Patient eating and tolerating intake well. States to be pain-free without shortness of breath. Overnight patient stayed in NSR with occasional PVCs. For alkalemia pH, likely secondary to hyperventilation from anxiety with metabolic compensation. Patient on Ativan for anxiety. Also spoke to RT and recommended titrating down on oxygen requirement as it is necessary to obtain biopsies of the lung mass for the patient to be on low oxygen requirement Exam Vital Signs Temp Pulse Resp BP Pulse Ox O2 Del Method O2 Flow Rate 97.4 F 101 H 23 H 92/68 89 L High Flow Nasal Cannula 10 06/05/25 12:00 06/05/25 12:00 06/05/25 12:00 06/05/25 12:00 06/05/25 12:00 06/05/25 12:00 06/05/25 12:00 FiO2 50 06/05/25 12:00 Narrative Exam General: Awake and in no acute distress; alert. moderately anxious. HEENT: PERRLA. Normocephalic, atraumatic, mucous membranes moist. Heart: Regular rate and rhythm, normal S1 and S2, no murmurs appreciated. Lungs: Decreased breath sounds bilaterally. coarse bilateral breath sounds present. Abdomen: Soft, mildly distended, nontender, positive bowel sounds. No guarding or rebound tenderness. Mild ascites. : Aguilar in place. Large left inguinal mass, no discoloration or tenderness. Neurologic: Alert and oriented x3, no gross neurological deficit, and patient able to move all 4 extremities. Extremities: 2+ pitting edema extending up to knees. Skin: No rash or ecchymoses. Objective Labs 06/06/25 05:10 06/06/25 05:10 Labs: Laboratory Results - last 24 hr 06/03/25 06/04/25 06/04/25 13:00 15:10 15:35 WBC RBC Hgb Hct MCV MCH MCHC RDW Std Deviation Plt Count Neut % (Auto) Lymph % (Auto) [place] % (Auto) Eos % (Auto) Baso % (Auto) Neut # (Auto) Lymph # (Auto) [place] # (Auto) Eos # (Auto) Baso # (Auto) Immature Gran # (Auto) Absolute Nucleated RBC Immature Gran % Nucleated RBC % PT 14.6 H INR 1.4 H APTT 32.3 D Sodium Potassium Chloride Carbon Dioxide Anion Gap BUN Creatinine Estim Creat Clear Calc eGFR BUN/Creatinine Ratio Glucose Calculated Osmolality Calcium Corrected Calcium Phosphorus Magnesium Total Bilirubin AST ALT Alkaline Phosphatase Lactate Dehydrogenase 301 H Total Protein Albumin Globulin Albumin/Globulin Ratio Pleural Color Colorless Pleural Appearance Clear Pleural WBC 2183 Pleural RBC 34278 Pleural Polynuclear WBC 50.7 Pleural Mononuclear WBC 49.3 Pleural Total Protein 3.3 Pleural LDH 378 Pleural Glucose 90 Pleural Amylase < 20 Coccidioides IgG Ab Negative 06/05/25 06/05/25 06/05/25 00:42 05:13 09:03 WBC 14.8 H RBC 4.75 Hgb 12.4 L Hct 40.1 L MCV 84 MCH 26.1 MCHC 30.9 L RDW Std Deviation 62.0 H Plt Count 134 L Neut % (Auto) 82 H Lymph % (Auto) 7 L [place] % (Auto) 5 Eos % (Auto) 0 Baso % (Auto) 0 Neut # (Auto) 12.1 H Lymph # (Auto) 1.0 [place] # (Auto) 0.7 Eos # (Auto) 0.0 Baso # (Auto) 0.0 Immature Gran # (Auto) 0.92 H Absolute Nucleated RBC 0.07 H Immature Gran % 6 H Nucleated RBC % 1 H PT INR APTT 53.4 H D 49.6 H Sodium 132 L Potassium 3.9 D Chloride 99 Carbon Dioxide 19.6 L Anion Gap 13 BUN 22 Creatinine 1.0 Estim Creat Clear Calc 84.1 eGFR > 60 BUN/Creatinine Ratio 22 H Glucose 102 Calculated Osmolality 267 L Calcium 9.1 Corrected Calcium 9.5 Phosphorus 2.8 Magnesium 2.0 Total Bilirubin 1.6 H AST 26 ALT 49 Alkaline Phosphatase 76 Lactate Dehydrogenase 229 Total Protein 6.5 Albumin 3.5 Globulin 3.0 Albumin/Globulin Ratio 1.2 Pleural Color Pleural Appearance Pleural WBC Pleural RBC Pleural Polynuclear WBC Pleural Mononuclear WBC Pleural Total Protein Pleural LDH Pleural Glucose Pleural Amylase Coccidioides IgG Ab ABG Interpretation ABG results: 05/29/25 05/31/25 05/31/25 05:33 10:53 17:16 ABG pH 7.38 7.30 L 7.52 H D ABG pCO2 24 L 33 28 L ABG pO2 57 L* 125 H D 50 L* D ABG HCO3 14 L 16 L 23 ABG O2 Saturation 87 L 99 H 88 L ABG Base Excess -9 L -9 L 1 05/31/25 06/01/25 06/03/25 23:51 05:01 20:42 ABG pH 7.49 H 7.53 H 7.54 H ABG pCO2 29 L 27 L 26 L ABG pO2 57 L* 51 L* 60 L ABG HCO3 22 23 22 ABG O2 Saturation 91 88 L 88 L ABG Base Excess 0 1 0 06/04/25 10:17 ABG pH 7.54 H ABG pCO2 26 L ABG pO2 55 L* ABG HCO3 22 ABG O2 Saturation 91 ABG Base Excess 1 Quality Measures Quality Measures VTE prophylaxis Assessment & Plan Assessment Current Active Medications: Generic Name Dose Route Start Last Admin Trade Name Freq PRN Reason Stop Dose Admin Acetaminophen 325 mg 05/29/25 12:07 06/02/25 23:46 Acetaminophen 325 Mg Tablet PO 06/28/25 12:06 325 mg Q6H PRN Administration Fever >101.5, Pain 1-3 Albuterol/Ipratropium 3 ml 05/29/25 12:07 06/04/25 21:11 Albuterol/Ipratropium (Duoneb) Rt Becky 3 Ml Nebu INH 06/28/25 12:06 3 ml Q2HR PRN Administration SHORTNESS OF BREATH OR WHEEZE Furosemide 40 mg 06/03/25 11:45 06/05/25 09:15 Furosemide Inj 10 Mg/Ml 4ml Vial IVP 07/03/25 11:44 40 mg QDAY COTY Administration Levofloxacin/Dextrose 750 mg in 150 mls @ 100 mls/hr 06/01/25 10:30 06/05/25 09:30 Levaquin Ivpb IV 06/08/25 10:29 100 mls/hr QDAY COTY Administration Heparin Sodium/Dextrose 25,000 unit in 250 mls @ 14.256 mls/hr 06/04/25 09:00 06/05/25 10:45 Heparin In D5w Ivpb IV 06/12/25 12:14 19 units/kg/hr .[id number] COTY 15.048 mls/hr Protocol Administration 18 UNITS/KG/HR Ipratropium [place] 0.5 mg 06/04/25 19:00 06/05/25 10:34 Ipratropium Rt 0.5 Mg/ 2.5 Ml Nebu INH 07/04/25 18:59 0.5 mg Q4HRRT COTY Administration Levalbuterol HCl 1.25 mg 06/04/25 19:00 06/05/25 10:33 Levalbuterol Rt 1.25 Mg/0.5 Ml Nebu INH 07/04/25 18:59 1.25 mg Q4HRRT COTY Administration Lorazepam 0.5 mg 06/03/25 09:28 06/05/25 02:16 Lorazepam 0.5 Mg Tablet PO 06/08/25 09:27 0.5 mg Q8HR PRN Administration ANXIETY Midodrine 15 mg 06/04/25 10:20 06/05/25 05:05 Midodrine 5 Mg Tablet PO 07/04/25 10:19 15 mg TID COTY Administration Nicotine 21 mg 05/29/25 12:15 06/05/25 09:14 Nicotine Patch 21 Mg/24 Hr Patch.Td24 TOP 06/28/25 12:14 21 mg QDAY COTY Administration Ondansetron HCl 4 mg 05/29/25 12:07 Ondansetron Inj 2 Mg/Ml Inj 2 Ml IVP 06/28/25 12:06 Q6H PRN NAUSEA OR VOMITING Protocol Pantoprazole Sodium 40 mg 05/29/25 12:15 06/05/25 09:15 Pantoprazole Inj 40 Mg Vial IVP 06/28/25 12:14 40 mg QDAY COTY Administration Polyethylene Glycol 17 gm 06/02/25 10:30 06/05/25 09:17 Polyethylene Glycol 17 Gm Packet PO 07/02/25 10:29 Not Given QDAY COTY Rifaximin 550 mg 06/01/25 10:30 06/05/25 09:13 Rifaximin 550 Mg Tablet PO 06/08/25 10:29 550 mg BID COTY Administration Sodium Chloride 3 ml 05/31/25 10:52 06/03/25 15:56 Sodium Chloride Rt Becky 0.9% 3 Ml Nebu INH 06/30/25 10:51 3 ml PRN PRN Administration SOLN Spironolactone 100 mg 06/03/25 11:45 06/05/25 09:13 Spironolactone 25 Mg Tablet PO 07/03/25 11:44 100 mg QDAY COTY Administration Plan Patient is a 64 year old male with past medical history of schizophrenia, COPD on supplemental home oxygen, chronic active smoker greater than 40 pack years, and status post right inguinal hernia repair in 2018 who presented to ED on 05/29/25 for shortness of breath. Patient was admitted telemetry for acute on chronic hypoxic respiratory failure, pleural effusion, pneumonia and pulmonary emboli, upgraded to ICU on 05/31 for worsening acute on chronic respiratory distress. Downgraded back to telemetry as patient has stabilized and tolerating high flow.? #Acute on chronic hypoxic respiratory failure? #Right upper lung tumor, Possible malignancy? #Right pleural effusion s/p thoracentesis (05/29, 06/01)? - Chronic smoking history as above? 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 -S/p thoracentesis, -750 cc straw colored fluid? -Per lights criteria, fluid is exudative, likely secondary to malignancy? - Pleural fluid culture 05/29 grew Bacillus (likely cereus)? - CT head with and without contrast showed no cranial masses? + recent thoracentesis on 06/01 with 1.2 L drained of straw fluid, Light's criteria positive for exudative effusion.? 06/04:?patient had increased work of breathing and respiratory rate was increased. CXR showed fluid?reaccumulation?and bedside US revealed right lung fluid pockets that were easily accessible. 1.5L of fluid was successfully drained from R lung.?FUP CXR showed apical?pnuemothorax.?Fluid re-accumulation most likely secondary to lung mass c/f malignancy pending lung bx? ? Plan:? -Physiotherapist to try and titrate down oxygen requirements in preparation also for lung tumor biopsy. -Repeat thoracentesis (06/04) : 1.5L of strawberry colored fluid drained from the Rt lung? -morning chest x-ray further evaluation to see if lung has expanded.?? -encourage incentive spirometry use.?? -Serum lactate dehydrogenase ordered for the morning for further evaluation of effusion and determine if it is exudative? -Samples sent for cytology work up?? -Consider?pleurx?catheter when patient is ready to discharge if effusions recur? - Oncology recommended lung biopsy? - Ordered CT lung biopsy per oncology recommendations; on hold at this time due to heparinization? - Per pathology, atypical?epitheial?cells, but not enough for definitive diagnosis of?maligancy; they suggest biopsy.? ? ? #?COPD exacerbation? Likely secondary to pneumonia? - Chronic smoking history? - Presented with shortness of breath requiring 10 L supplemental oxygen at home. Per chart review patient usually uses a liters at home per brother.?? - Used rescue inhaler use for the past 2 weeks prior to admission? - Lactic 9.0, [place] 1.33, WBC 14 with neutrophil dominance? -CT showed bilateral pneumonia and left upper lobe and right lower lobe? +Patient takes breaths between words and has elevated respiratory rate that?worsens with?Bipap?due to increased anxiety.? ? Treatment:? - Start IV levofloxacin (06/01-? - Discontinue azithromycin, Zosyn and Vancomycin (05/29?06/01)? -Levalbuterol/ipratropium every 6?hoursla? -?DuoNebs?as needed? - Wean oxygen as tolerated? -?lasix?40?qday? - Midodrine 15 TID to prevent hypotension? ? #Pneumonia Likely secondary to gram-negative versus gram-positive organisms? #? Parapneumonic effusion? - Presented with worsening breathing and increased oxygen requirements. No fevers at home.? - Likely infectious in setting of Bacillus in pleural fluid? - WBC 14 -> 16 -> 15? - Influenza A&B, COVID negative? - UA clean?? - CT showed bilateral pneumonia and left upper lobe and right lower lobe? - Sputum Gram stain showed rare WBCs, 1+ GPC, 1+ GNR? - Pleural fluid culture 05/29 grew Bacillus (likely cereus)? ? Treatment:? - Discontinued azithromycin, Zosyn and vancomycin? - Started on IV levofloxacin?? - Monitor a.m. CBC? - Wean oxygen as tolerated? - Follow up repeat pleural studies and cytology?? -?lasix?40?qday? ? #Bilateral pulmonary embolisms? Likely secondary to?hypercoagable?state in setting of malignancy? - Presented with shortness of breath requiring 10 L supplemental oxygen at home.? - CTA showed bilateral pulmonary arterial emboli? - D-dimer elevated?? ? Plan:? - Heparin GTT? -Monitor for bleed? -Cardiology consulted, appreciate recommendations?? ? #Cirrhosis? #Transaminitis (improving)? #Hyperbilirubinemia? #Anasarca? -patient consumed moderate amount of alcohol for many years? -Has elevated INR and thrombocytopenia, indicative of chronic pathology? -On exam, mild ascites and anasarca, improved s/p diuresis?? -AST 436 -> 41? - ALT 398 -> 105? Hepatitis panel?non reactive?? ? Plan:? -?spiranolactone?100 mg daily? - rifaximin 550 mg BID? - Recommend patient follow up outpatient with hepatology/GI? ? ? #Lactic acidosis type A & B (improving)? -Multifactorial: Type A in setting of hypoxia versus type B in setting of cirrhosis/malignancy? - Lactic acid 9 -> 3.4, likely persistent in setting of cirrhosis? ? #SURYA? -Hemoglobin 12.4? -Iron studies showed low iron and iron saturation, ferritin and TIBC within normal limits? Treatment:? -No active treatment at this time? -Consider starting on iron once infection cleared? ? ? #History of schizophrenia? #Agitation/Anxiety?? - Per patient, he had been diagnosed years ago by PCP, now retired? - Not on any psych medication? - During rapid, patient was agitated with increased work of breathing, causing him to desaturate to 80%. Wanted to?removed?the BiPAP mask.? Treatment:? - Not currently on any psych medications?? - Hydroxyzine as needed for agitation?? - Follow-up with family or PCP regarding diagnosis? - Avoid overuse of benzodiazepines as may contribute to decreased respiratory drive Health maintenance:? Diet: special DVT prophylaxis: Heparin drip? Aguilar: None? Lines: PIV? CODE STATUS: Full This case was discussed with my attending physician, Dr. Sultana, and senior resident, Dr Perez. Even though this this note was carefully revised there may still be minor errors in binding machine operator due to voice recognition software. Jozef Crisostomo, DO PGY I Senior Resident Attestation: The patient was still saturating on high flow nasal cannula. However, his FiO2 came down to 85% from 100%. Reported feeling much better. Other vitals has been fairly stable. White count is stable around 14, platelet 134, sodium 132, T. bili coming down to 1.6, chest x-ray done today revealed complete resolution of pneumothorax. Thoracentesis done yesterday did was able to withdraw 1500 cc of sanguinous fluid, that was exudative. Will continue to taper down his oxygen requirement, and after he is switched to nasal cannula, we will plan for lung biopsy. He was also placed on as needed Ativan twice daily for anxiety. I discussed with and supervised the chemist internship physician involved in the care of this patient. I personally saw and examined the patient and discussed the assessment and plan with the entire medicine team, including my attending. I agree with the assessment and plan as documented above. Gerber Perez MD PGY3 Internal Medicine Attending Provider Attestation/Addendum I have discussed and was present for the essential components of the history, physical examination, diagnosis, and treatment plan with the resident. I agree with the patient's care as documented by the resident and amended herein by me. Per Sultana DO. Although this document has been carefully reviewed, there may still be some phonetic and other typographical errors. These errors are purely grammatical due to imperfections in the software program and should not be construed in any way to compromise the substance of the patient's medical care during this visit.
[2025-06-05] MEDS: LACTULOSE SYRUP 20 GM/30 ML UDC 30 GM PO ×2 (15:28→21:42)
[2025-06-05 18:24] LABS: Partial Thromboplastin Time 54.1 Seconds (22.0-36.0)
[2025-06-06] VITALS (19 sets, daily range): BP systolic 87–110; BP diastolic 60–85; PULSE 59–117; RESP 18–36; TEMP 36.3–36.8; O2SAT 89–95; BMI 23.4
[2025-06-06] MEDS: LEVALBUTEROL RT 1.25 MG/0.5 ML NEBU INH ×6 (02:47→23:07)
[2025-06-06] MEDS: IPRATROPIUM RT 0.5 MG/ 2.5 ML NEBU INH ×6 (02:47→23:08)
[2025-06-06] MEDS: ALBUTEROL/IPRATROPIUM (Duoneb) RT SOL 3 ML NEBU INH (05:07)
[2025-06-06] MEDS: LACTULOSE SYRUP 20 GM/30 ML UDC 30 GM PO ×2 (05:43→13:54)
[2025-06-06] MEDS: Heparin/D5w 25K 250 ML Ivpb 25,000 UNIT/250 ML BAG 15.048 UNIT IV (05:45)
[2025-06-06 05:56] LABS: Basophils # (Auto) 0.0 Thou/mm3 (0.0-0.2); Basophils % (Auto) 0 % (0-2.5); Eosinophils # (Auto) 0.0 Thou/mm3 (0.0-0.5); Eosinophils % (Auto) 0 % (0-10); Hematocrit 39.2 % (41.0-53.0); Hemoglobin 12.2 g/dL (13.5-16.0); Immature Granulocytes Auto 1.00 Thou/mm3 (0.00-0.00); Lymphocytes # (Auto) 1.0 Thou/mm3 (1.0-4.8); Lymphocytes % (Auto) 7 % (10-50); Mean Corpuscular HGB Conc 31.1 g/dl (31.0-37.0); Mean Corpuscular Hemoglobin 26.0 pg (25.0-35.0); Mean Corpuscular Volume 84 fL (80-100); Monocytes # (Auto) 0.8 Thou/mm3 (0.0-0.8); Monocytes % (Auto) 5 % (0-12); Neutrophils # (Auto) 12.2 Thou/mm3 (1.8-7.7); Neutrophils % (Auto) 81 % (37-80); Nucleated Red Blood Cell # 0.03 Thou/mm3 (0.00-0.00); Nucleated Red Blood Cell % 0 /100 WBC (0); Platelet Count 165 Thou/mm3 (140-440); RDW Standard Deviation 60.8 fL (35.1-43.9); Red Blood Count 4.69 Miln/mm3 (4.50-5.90); White Blood Count 15.0 Thou/mm3 (3.8-10.6)
[2025-06-06 06:17] LABS: Alanine Aminotransferase 77 U/L (10-49); Albumin, Serum 3.4 gm/dL (3.4-4.8); Albumin/Globulin Ratio 1.0 (1.2-2.2); Alkaline Phosphatase 87 U/L (46-116); Anion Gap 14 (7-16); Aspartate Amino Transferase 91 U/L (0-34); BUN/Creatinine Ratio 23 Ratio (12-20); Bilirubin,Total 1.8 mg/dL (0.3-1.2); Blood Urea Nitrogen 25 mg/dL (9-23); Calcium 9.2 mg/dL (8.3-10.6); Calcium (Corrected) 9.7 mg/dL (8.5-10.1); Carbon Dioxide 18.2 mMol/L (20.0-31.0); Chloride 100 mMol/L (98-107); Creatinine (Component) 1.1 mg/dL (0.6-1.3); Estimated Creatinine Clearance 76.4 mL/min (>60); Globulin 3.3 gm/dL (2.3-3.5); Glucose 101 mg/dL (74-106); Magnesium 2.0 mg/dL (1.6-2.6); Osmolality,Calculated 268 (275-295); Potassium 3.9 mMol/L (3.4-5.1); Sodium 132 mMol/L (136-145); Total Protein 6.7 gm/dL (5.7-8.2); eGFR > 60 See Note
[2025-06-06 08:18] LABS: Base Excess -3 (-3-3); HCO3 19 mEq/L (20-26); Inspired Oxygen, FIO2 50 %; O2 Saturation 87 % (91-98); PCO2 24 mmHg (32.0-48.0); pH, Arterial 7.50 (7.35-7.45)
--- NOTE | 2025-06-06 08:21 | ESPR_ITS ---
Documentation for date of: 06/06/25 Subjective Subjective Interval history: Patient with large right upper lobe mass invading right mediastinum with right- sided pleural effusion. Thoracentesis performed 06/01/2025 revealing rare atypical epithelial cells but no malignancy could be identified. Biopsy attempt has been delayed due to need for high flow O2 currently at 40 L Exam Vital Signs Temp Pulse Resp BP Pulse Ox O2 Del Method O2 Flow Rate 98.1 F 101 H 20 108/79 92 L High Flow Nasal Cannula 40 06/06/25 04:00 06/06/25 07:29 06/06/25 07:29 06/06/25 05:48 06/06/25 07:29 06/06/25 04:00 06/06/25 07:29 FiO2 80 06/06/25 07:29 Narrative Exam Appearing comfortable receiving high flow NC at 40 Objective Labs 06/06/25 05:10 06/06/25 05:10 Labs: Laboratory Results - last 24 hr 06/03/25 06/05/25 06/05/25 13:00 09:03 17:12 WBC RBC Hgb Hct MCV MCH MCHC RDW Std Deviation Plt Count Neut % (Auto) Lymph % (Auto) [place] % (Auto) Eos % (Auto) Baso % (Auto) Neut # (Auto) Lymph # (Auto) [place] # (Auto) Eos # (Auto) Baso # (Auto) Immature Gran # (Auto) Absolute Nucleated RBC Immature Gran % Nucleated RBC % APTT 49.6 H 54.1 H Sodium Potassium Chloride Carbon Dioxide Anion Gap BUN Creatinine Estim Creat Clear Calc eGFR BUN/Creatinine Ratio Glucose Calculated Osmolality Calcium Corrected Calcium Magnesium Total Bilirubin AST ALT Alkaline Phosphatase Total Protein Albumin Globulin Albumin/Globulin Ratio Coccidioides IgG Ab Negative 06/06/25 05:10 WBC 15.0 H RBC 4.69 Hgb 12.2 L Hct 39.2 L MCV 84 MCH 26.0 MCHC 31.1 RDW Std Deviation 60.8 H Plt Count 165 D Neut % (Auto) 81 H Lymph % (Auto) [address] [place] % (Auto) 5 Eos % (Auto) 0 Baso % (Auto) 0 Neut # (Auto) 12.2 H Lymph # (Auto) 1.0 [place] # (Auto) 0.8 Eos # (Auto) 0.0 Baso # (Auto) 0.0 Immature Gran # (Auto) 1.00 H Absolute Nucleated RBC 0.03 H Immature Gran % 7 H Nucleated RBC % 0 APTT Sodium 132 L Potassium 3.9 Chloride 100 Carbon Dioxide 18.2 L Anion Gap 14 BUN 25 H Creatinine 1.1 Estim Creat Clear Calc 76.4 eGFR > 60 BUN/Creatinine Ratio 23 H Glucose 101 Calculated Osmolality 268 L Calcium 9.2 Corrected Calcium 9.7 Magnesium 2.0 Total Bilirubin 1.8 H AST 91 H ALT 77 H Alkaline Phosphatase 87 Total Protein 6.7 Albumin 3.4 Globulin 3.3 Albumin/Globulin Ratio 1.0 L Coccidioides IgG Ab ABG Interpretation ABG results: 05/29/25 05/31/25 05/31/25 05:33 10:53 17:16 ABG pH 7.38 7.30 L 7.52 H D ABG pCO2 24 L 33 28 L ABG pO2 57 L* 125 H D 50 L* D ABG HCO3 14 L 16 L 23 ABG O2 Saturation 87 L 99 H 88 L ABG Base Excess -9 L -9 L 1 05/31/25 06/01/25 06/03/25 23:51 05:01 20:42 ABG pH 7.49 H 7.53 H 7.54 H ABG pCO2 29 L 27 L 26 L ABG pO2 57 L* 51 L* 60 L ABG HCO3 22 23 22 ABG O2 Saturation 91 88 L 88 L ABG Base Excess 0 1 0 06/04/25 10:17 ABG pH 7.54 H ABG pCO2 26 L ABG pO2 55 L* ABG HCO3 22 ABG O2 Saturation 91 ABG Base Excess 1 Assessment & Plan A&P Narrative 1. 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 Thoracentesis did not reveal any malignant cells. 2. Lung biopsy will be needed if can be done while patient still in the hospital. I will follow patient upon discharge in any case at [facility]. 3. COPD, pneumonia pulmonary embolism among comorbidties being treated. Time Spent With Patient Time: Total time spent is greater than 50% in coordination of care (as documented) at patient's floor/unit and/or counseling patient:
[2025-06-06 08:27] LABS: Allen Test Not Performed; PO2 50 mmHg (83-108); Puncture Site Right Radial
--- NOTE | 2025-06-06 08:31 | PC.SS ---
Follow up note: Pt is on high flow O2. Pleurx drain placed in right lung. Pt is possible d/c to SNF upon dc.
[2025-06-06] MEDS: CITRIC ACID/SODIUM CITR 15 ML UDC (BICITRA) 30 ML PO ×2 (09:20→20:56)
[2025-06-06] MEDS: LEVOFLOXACIN/D5W 750MG IVPB 750 MG/150 ML BAG 100 MG IV (09:21)
[2025-06-06] MEDS: NICOTINE PATCH 21 MG/24 HR PATCH.TD24 TOP (09:21)
[2025-06-06] MEDS: ACETAMINOPHEN 325 MG TABLET PO (09:31)
[2025-06-06] MEDS: MIDODRINE 5 MG TABLET 15 MG PO ×2 (09:40→21:00)
[2025-06-06] MEDS: SPIRONOLACTONE 25 MG TABLET 50 MG PO (09:40)
[2025-06-06] MEDS: FUROSEMIDE INJ 10 MG/ML 4ML VIAL 40 MG IVP ×2 (09:41→11:24)
--- NOTE | 2025-06-06 10:56 | PC.NURSE ---
Spoke with Tangela, pt's son's sister. She stated that pt does not have a physical address, contact on file (mother) , pt's son Oliverio [phone]. Information relayed to Delphine CASTRO
[2025-06-06 11:18] LABS: Partial Thromboplastin Time 60.7 Seconds (22.0-36.0)
--- NOTE | 2025-06-06 12:44 | PC.NURSE ---
Recvd order for pleurx drain for patient. Discussed case with Dr. Lucas> Per doctor the heparin needs to be stopped for 24 hrs before proceeding. Called Elinor WILSON and made aware. She will discuss with the team.
--- NOTE | 2025-06-06 15:55 | PC.SS ---
SS attempted to contact patient's son, Oliverio, phone# [phone] but was unable to leave voicemail.
--- NOTE | 2025-06-06 17:27 | PD.RESPRO ---
Documentation for date of: 06/06/25 Subjective Subjective Interval history: Patient seen and examined at bedside; no acute events overnight. Patient eating and tolerating intake well. States to be pain-free without shortness of breath. Overnight patient stayed in NSR with occasional PVCs. For alkalemia pH, likely secondary to hyperventilation from anxiety with metabolic compensation. Patient on Ativan for anxiety. Will need PleurX catheter, spoke to Dr. Dean who is in agreement with performing the procedure however will have the patient off heparin for 2 days before procedure. Likely to take place on Monday. Also spoke to RT and recommended titrating down on oxygen requirement as it is necessary to obtain biopsies of the lung mass for the patient to be on low oxygen requirement. Exam Vital Signs Temp Pulse Resp BP Pulse Ox O2 Del Method O2 Flow Rate 97.4 F 104 H 28 H 104/72 90 L High Flow Nasal Cannula 35 06/06/25 12:00 06/06/25 16:00 06/06/25 14:38 06/06/25 13:55 06/06/25 14:38 06/06/25 12:00 06/06/25 14:38 FiO2 60 06/06/25 14:38 Narrative Exam General: Awake and in no acute distress; alert. moderately anxious. HEENT: PERRLA. Normocephalic, atraumatic, mucous membranes moist. Heart: Regular rate and rhythm, normal S1 and S2, no murmurs appreciated. Lungs: Decreased breath sounds bilaterally. coarse bilateral breath sounds present. Abdomen: Soft, mildly distended, nontender, positive bowel sounds. No guarding or rebound tenderness. Mild ascites. : Aguilar in place. Large left inguinal mass, no discoloration or tenderness. Neurologic: Alert and oriented x3, no gross neurological deficit, and patient able to move all 4 extremities. Extremities: 2+ pitting edema extending up to knees. Skin: No rash or ecchymoses. Objective Labs 06/07/25 05:56 06/07/25 05:56 Labs: Laboratory Results - last 24 hr 06/05/25 06/06/25 06/06/25 17:12 05:10 07:58 WBC 15.0 H RBC 4.69 Hgb 12.2 L Hct 39.2 L MCV 84 MCH 26.0 MCHC 31.1 RDW Std Deviation 60.8 H Plt Count 165 D Neut % (Auto) 81 H Lymph % (Auto) 7 L Ferry % (Auto) 5 Eos % (Auto) 0 Baso % (Auto) 0 Neut # (Auto) 12.2 H Lymph # (Auto) 1.0 Ferry # (Auto) 0.8 Eos # (Auto) 0.0 Baso # (Auto) 0.0 Immature Gran # (Auto) 1.00 H Absolute Nucleated RBC 0.03 H Immature Gran % 7 H Nucleated RBC % 0 APTT 54.1 H Puncture Site Right Radial ABG pH 7.50 H ABG pCO2 24 L ABG pO2 50 L* ABG HCO3 19 L ABG O2 Saturation 87 L ABG Base Excess -3 FiO2 50 Sodium 132 L Potassium 3.9 Chloride 100 Carbon Dioxide 18.2 L Anion Gap 14 BUN 25 H Creatinine 1.1 Estim Creat Clear Calc 76.4 eGFR > 60 BUN/Creatinine Ratio 23 H Glucose 101 Calculated Osmolality 268 L Calcium 9.2 Corrected Calcium 9.7 Magnesium 2.0 Total Bilirubin 1.8 H AST 91 H ALT 77 H Alkaline Phosphatase 87 Total Protein 6.7 Albumin 3.4 Globulin 3.3 Albumin/Globulin Ratio 1.0 L 06/06/25 10:05 WBC RBC Hgb Hct MCV MCH MCHC RDW Std Deviation Plt Count Neut % (Auto) Lymph % (Auto) Ferry % (Auto) Eos % (Auto) Baso % (Auto) Neut # (Auto) Lymph # (Auto) Ferry # (Auto) Eos # (Auto) Baso # (Auto) Immature Gran # (Auto) Absolute Nucleated RBC Immature Gran % Nucleated RBC % APTT 60.7 H Puncture Site ABG pH ABG pCO2 ABG pO2 ABG HCO3 ABG O2 Saturation ABG Base Excess FiO2 Sodium Potassium Chloride Carbon Dioxide Anion Gap BUN Creatinine Estim Creat Clear Calc eGFR BUN/Creatinine Ratio Glucose Calculated Osmolality Calcium Corrected Calcium Magnesium Total Bilirubin AST ALT Alkaline Phosphatase Total Protein Albumin Globulin Albumin/Globulin Ratio ABG Interpretation ABG results: 05/29/25 05/31/25 05/31/25 05:33 10:53 17:16 ABG pH 7.38 7.30 L 7.52 H D ABG pCO2 24 L 33 28 L ABG pO2 57 L* 125 H D 50 L* D ABG HCO3 14 L 16 L 23 ABG O2 Saturation 87 L 99 H 88 L ABG Base Excess -9 L -9 L 1 05/31/25 06/01/25 06/03/25 23:51 05:01 20:42 ABG pH 7.49 H 7.53 H 7.54 H ABG pCO2 29 L 27 L 26 L ABG pO2 57 L* 51 L* 60 L ABG HCO3 22 23 22 ABG O2 Saturation 91 88 L 88 L ABG Base Excess 0 1 0 06/04/25 06/06/25 10:17 07:58 ABG pH 7.54 H 7.50 H ABG pCO2 26 L 24 L ABG pO2 55 L* 50 L* ABG HCO3 22 19 L ABG O2 Saturation 91 87 L ABG Base Excess 1 -3 Quality Measures Quality Measures VTE prophylaxis Assessment & Plan Assessment Current Active Medications: Generic Name Dose Route Start Last Admin Trade Name Freq PRN Reason Stop Dose Admin Acetaminophen 325 mg 05/29/25 12:07 06/06/25 09:31 Acetaminophen 325 Mg Tablet PO 06/28/25 12:06 325 mg Q6H PRN Administration Fever >101.5, Pain 1-3 Albuterol/Ipratropium 3 ml 05/29/25 12:07 06/06/25 05:07 Albuterol/Ipratropium (Duoneb) Rt Becky 3 Ml Nebu INH 06/28/25 12:06 3 ml Q2HR PRN Administration SHORTNESS OF BREATH OR WHEEZE Citric Acid/Sodium Citrate 30 ml 06/06/25 09:00 06/06/25 09:20 Citric Acid/Sodium Citr 15 Ml Udc (Bicitra) PO 06/08/25 08:59 30 ml BID COTY Administration Clonazepam 0.5 mg 06/06/25 21:00 Clonazepam 0.5 Mg Tablet PO 06/08/25 20:59 BID COTY Furosemide 80 mg 06/07/25 09:00 Furosemide Inj 10 Mg/Ml 4ml Vial IVP 07/07/25 08:59 QDAY COTY Levofloxacin/Dextrose 750 mg in 150 mls @ 100 mls/hr 06/01/25 10:30 06/06/25 09:21 Levaquin Ivpb IV 06/08/25 10:29 100 mls/hr QDAY COTY Administration Ipratropium Ulysses 0.5 mg 06/04/25 19:00 06/06/25 14:38 Ipratropium Rt 0.5 Mg/ 2.5 Ml Nebu INH 07/04/25 18:59 0.5 mg Q4HRRT COTY Administration Lactulose 30 gm 06/05/25 14:45 06/06/25 13:54 Lactulose Syrup 20 Gm/30 Ml Udc PO 07/05/25 14:44 30 gm TID COTY Administration Protocol Levalbuterol HCl 1.25 mg 06/04/25 19:00 06/06/25 14:38 Levalbuterol Rt 1.25 Mg/0.5 Ml Nebu INH 07/04/25 18:59 1.25 mg Q4HRRT COTY Administration Lorazepam 0.5 mg 06/03/25 09:28 06/06/25 01:41 Lorazepam 0.5 Mg Tablet PO 06/08/25 09:27 0.5 mg Q8HR PRN Administration ANXIETY Midodrine 15 mg 06/04/25 10:20 06/06/25 13:55 Midodrine 5 Mg Tablet PO 07/04/25 10:19 Not Given TID COTY Nicotine 21 mg 05/29/25 12:15 06/06/25 09:21 Nicotine Patch 21 Mg/24 Hr Patch.Td24 TOP 06/28/25 12:14 21 mg QDAY COTY Administration Ondansetron HCl 4 mg 05/29/25 12:07 Ondansetron Inj 2 Mg/Ml Inj 2 Ml IVP 06/28/25 12:06 Q6H PRN NAUSEA OR VOMITING Protocol Pantoprazole Sodium 40 mg 05/29/25 12:15 06/06/25 09:24 Pantoprazole Inj 40 Mg Vial IVP 06/28/25 12:14 40 mg QDAY COTY Administration Polyethylene Glycol 17 gm 06/02/25 10:30 06/06/25 09:33 Polyethylene Glycol 17 Gm Packet PO 07/02/25 10:29 Not Given QDAY COTY Rifaximin 550 mg 06/01/25 10:30 06/06/25 09:40 Rifaximin 550 Mg Tablet PO 06/08/25 10:29 550 mg BID COTY Administration Sodium Chloride 3 ml 05/31/25 10:52 06/03/25 15:56 Sodium Chloride Rt Becky 0.9% 3 Ml Nebu INH 06/30/25 10:51 3 ml PRN PRN Administration SOLN Spironolactone 50 mg 06/06/25 09:00 06/06/25 09:40 Spironolactone 25 Mg Tablet PO 07/06/25 08:59 50 mg QDAY COTY Administration Plan Patient is a 64 year old male with past medical history of schizophrenia, COPD on supplemental home oxygen, chronic active smoker greater than 40 pack years, and status post right inguinal hernia repair in 2018 who presented to ED on 05/29/25 for shortness of breath. Patient was admitted telemetry for acute on chronic hypoxic respiratory failure, pleural effusion, pneumonia and pulmonary emboli, upgraded to ICU on 05/31 for worsening acute on chronic respiratory distress. Downgraded back to telemetry as patient has stabilized and tolerating high flow.? #Acute on chronic hypoxic respiratory failure? #Right upper lung tumor, Possible malignancy? #Right pleural effusion s/p thoracentesis (05/29, 06/01)? - Chronic smoking history as above? 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 -S/p thoracentesis, -750 cc straw colored fluid? -Per lights criteria, fluid is exudative, likely secondary to malignancy? - Pleural fluid culture 05/29 grew Bacillus (likely cereus)? - CT head with and without contrast showed no cranial masses? + recent thoracentesis on 06/01 with 1.2 L drained of straw fluid, Light's criteria positive for exudative effusion.? 06/04:?patient had increased work of breathing and respiratory rate was increased. CXR showed fluid?reaccumulation?and bedside US revealed right lung fluid pockets that were easily accessible. 1.5L of fluid was successfully drained from R lung.?FUP CXR showed apical?pnuemothorax.?Fluid re-accumulation most likely secondary to lung mass c/f malignancy pending lung bx? Will need PleurX catheter, spoke to Dr. Dean who is in agreement with performing the procedure however will have the patient off heparin for 2 days before procedure. Plan:? -Physiotherapist to try and titrate down oxygen requirements in preparation also for lung tumor biopsy. -Repeat thoracentesis (06/04) : 1.5L of strawberry colored fluid drained from the Rt lung? -morning chest x-ray further evaluation to see if lung has expanded.?? -encourage incentive spirometry use.?? -Serum lactate dehydrogenase ordered for the morning for further evaluation of effusion and determine if it is exudative? -Samples sent for cytology work up?? -Consider?pleurx?catheter when patient is ready to discharge if effusions recur? - Oncology recommended lung biopsy? - Ordered CT lung biopsy per oncology recommendations; on hold at this time due to heparinization? - Per pathology, atypical?epitheial?cells, but not enough for definitive diagnosis of?maligancy; they suggest biopsy.? ? ? #?COPD exacerbation? Likely secondary to pneumonia? - Chronic smoking history? - Presented with shortness of breath requiring 10 L supplemental oxygen at home. Per chart review patient usually uses a liters at home per brother.?? - Used rescue inhaler use for the past 2 weeks prior to admission? - Lactic 9.0, Pro-Antony 1.33, WBC 14 with neutrophil dominance? -CT showed bilateral pneumonia and left upper lobe and right lower lobe? +Patient takes breaths between words and has elevated respiratory rate that?worsens with?Bipap?due to increased anxiety.? ? Treatment:? - Start IV levofloxacin (06/01-? - Discontinue azithromycin, Zosyn and Vancomycin (05/29?06/01)? -Levalbuterol/ipratropium every 6?hoursla? -?DuoNebs?as needed? - Wean oxygen as tolerated? -?lasix?40?qday? - Midodrine 15 TID to prevent hypotension? ? #Pneumonia Likely secondary to gram-negative versus gram-positive organisms? #? Parapneumonic effusion? - Presented with worsening breathing and increased oxygen requirements. No fevers at home.? - Likely infectious in setting of Bacillus in pleural fluid? - WBC 14 -> 16 -> 15? - Influenza A&B, COVID negative? - UA clean?? - CT showed bilateral pneumonia and left upper lobe and right lower lobe? - Sputum Gram stain showed rare WBCs, 1+ GPC, 1+ GNR? - Pleural fluid culture 05/29 grew Bacillus (likely cereus)? ? Treatment:? - Discontinued azithromycin, Zosyn and vancomycin? - Started on IV levofloxacin?? - Monitor a.m. CBC? - Wean oxygen as tolerated? - Follow up repeat pleural studies and cytology?? -?lasix?40?qday? ? #Bilateral pulmonary embolisms? Likely secondary to?hypercoagable?state in setting of malignancy? - Presented with shortness of breath requiring 10 L supplemental oxygen at home.? - CTA showed bilateral pulmonary arterial emboli? - D-dimer elevated?? ? Plan:? - Heparin GTT? -Monitor for bleed? -Cardiology consulted, appreciate recommendations?? ? #Cirrhosis? #Transaminitis (improving)? #Hyperbilirubinemia? #Anasarca? -patient consumed moderate amount of alcohol for many years? -Has elevated INR and thrombocytopenia, indicative of chronic pathology? -On exam, mild ascites and anasarca, improved s/p diuresis?? -AST 436 -> 41? - ALT 398 -> 105? Hepatitis panel?non reactive?? ? Plan:? -?spiranolactone?100 mg daily?decreased to 50mg daily due to hyponatremia and HAGMA - rifaximin 550 mg BID? - Recommend patient follow up outpatient with hepatology/GI? #HAGMA AG 14, bicarb 18.2 -ordered bicitra 30ml bid ? #SURYA? -Hemoglobin 12.4? -Iron studies showed low iron and iron saturation, ferritin and TIBC within normal limits? Treatment:? -No active treatment at this time? -Consider starting on iron once infection cleared? ? ? #History of schizophrenia? #Agitation/Anxiety?? - Per patient, he had been diagnosed years ago by PCP, now retired? - Not on any psych medication? - During rapid, patient was agitated with increased work of breathing, causing him to desaturate to 80%. Wanted to?removed?the BiPAP mask.? Treatment:? - Not currently on any psych medications?? - Hydroxyzine as needed for agitation?? - Follow-up with family or PCP regarding diagnosis? - Avoid overuse of benzodiazepines as may contribute to decreased respiratory drive Health maintenance:? Diet: special DVT prophylaxis: Heparin drip? Aguilar: None? Lines: PIV? CODE STATUS: Full This case was discussed with my attending physician, Dr. Sultana, and senior resident, Dr Perez. Even though this this note was carefully revised there may still be minor errors in hospital clinic assistant due to voice recognition software. Jozef Crisostomo, DO PGY I Senior Resident Attestation: He has been agitated, and demanding to go home. He was started on clonazepam 0.5 mg twice daily scheduled, and will continue with as needed Ativan 0.5 mg every 8 hourly. We discontinued heparin, as IR Dr Lopez wanted the patient to be out of heparin for 48 hours before he would place PleurX tube. I discussed with and supervised the advertising intern physician involved in the care of this patient. I personally saw and examined the patient and discussed the assessment and plan with the entire medicine team, including my attending. I agree with the assessment and plan as documented above. Gerber Perez MD PGY3 Internal Medicine Attending Provider Attestation/Addendum I have discussed and was present for the essential components of the history, physical examination, diagnosis, and treatment plan with the resident. I agree with the patient's care as documented by the resident and amended herein by me. Per Sultana DO. Although this document has been carefully reviewed, there may still be some phonetic and other typographical errors. These errors are purely grammatical due to imperfections in the software program and should not be construed in any way to compromise the substance of the patient's medical care during this visit.
--- NOTE | 2025-06-06 23:35 | PC.NURSE ---
PATIENT AGITATED AND RESTLESS, TAKING HIGH FLOW NASAL CANNULA OFF WITH O2 SATURATIONS AT 83%, PER PATIENT I DON'T NEED OXYGEN, I WANT TO GO HOME PT EDUCATED ABOUT THE IMPORTANCE OF HAVING HIGH FLOW NASAL CANNULA ON AND OXYGEN REQUIREMENT, PER PATIENT I DONT CARE AND YOU GUYS DONT CARE ABOUT ME . - MD MIDDLETON MADE AWARE OF SITUATION AND STATED WILL COME TO BEDSIDE. - MD AT BEDSIDE, STATED TO GIVE SEROQUEL 25 MG PO X1. PER MD IF PATIENT GETS RESTLESS/AGITATED CALL MD BACK.
[2025-06-07] VITALS (19 sets, daily range): BP systolic 86–111; BP diastolic 60–79; PULSE 3–115; RESP 12–34; TEMP 36.3–36.7; O2SAT 87–98; BMI 23.4
[2025-06-07 00:24] LABS: Collection Type, Urine Clean Catch
[2025-06-07 00:50] LABS: Bilirubin,Urine Negative (Negative); Blood,Urine Negative (Negative); Clarity,Urine Clear (Clear/Hazy); Color,Urine Yellow (Lt Yel-Yel); Glucose, Urine Negative (Negative); Hyaline Casts,Urine < 1 /hpf (0-1); Ketones,Urine Negative (Negative); Leukocyte Esterase,Urine Negative (Negative); Nitrite,Urine Negative (Negative); PH,Urine 5.0 (5.0-7.0); Protein,Urine Negative (Neg - Trace); RBC,Urine 1 /hpf (0-3); Specific Gravity,Urine 1.017 (1.001-1.035); Squamous Epithelial Cell,Urine < 1 /hpf (0-5); Urobilinogen,Urine Negative mg/dL (0.0-1.0); WBC,Urine < 1 /hpf (0-5)
[2025-06-07] MEDS: LEVALBUTEROL RT 1.25 MG/0.5 ML NEBU INH ×6 (02:09→23:12)
[2025-06-07] MEDS: IPRATROPIUM RT 0.5 MG/ 2.5 ML NEBU INH ×6 (02:09→23:12)
[2025-06-07] MEDS: MIDODRINE 5 MG TABLET 15 MG PO ×3 (05:12→21:12)
[2025-06-07 06:59] LABS: Basophils # (Auto) 0.0 Thou/mm3 (0.0-0.2); Basophils % (Auto) 0 % (0-2.5); Eosinophils # (Auto) 0.0 Thou/mm3 (0.0-0.5); Eosinophils % (Auto) 0 % (0-10); Hematocrit 40.5 % (41.0-53.0); Hemoglobin 12.6 g/dL (13.5-16.0); Immature Granulocytes Auto 1.03 Thou/mm3 (0.00-0.00); Lymphocytes # (Auto) 1.0 Thou/mm3 (1.0-4.8); Lymphocytes % (Auto) 6 % (10-50); Mean Corpuscular HGB Conc 31.1 g/dl (31.0-37.0); Mean Corpuscular Hemoglobin 26.0 pg (25.0-35.0); Mean Corpuscular Volume 84 fL (80-100); Monocytes # (Auto) 0.9 Thou/mm3 (0.0-0.8); Monocytes % (Auto) 6 % (0-12); Neutrophils # (Auto) 13.9 Thou/mm3 (1.8-7.7); Neutrophils % (Auto) 83 % (37-80); Nucleated Red Blood Cell # 0.00 Thou/mm3 (0.00-0.00); Nucleated Red Blood Cell % 0 /100 WBC (0); Platelet Count 164 Thou/mm3 (140-440); RDW Standard Deviation 60.8 fL (35.1-43.9); Red Blood Count 4.84 Miln/mm3 (4.50-5.90); White Blood Count 16.9 Thou/mm3 (3.8-10.6)
[2025-06-07 07:12] LABS: Partial Thromboplastin Time 32.0 Seconds (22.0-36.0)
[2025-06-07 07:20] LABS: Alanine Aminotransferase 107 U/L (10-49); Albumin, Serum 3.3 gm/dL (3.4-4.8); Albumin/Globulin Ratio 1.0 (1.2-2.2); Alkaline Phosphatase 78 U/L (46-116); Anion Gap 16 (7-16); Aspartate Amino Transferase 115 U/L (0-34); BUN/Creatinine Ratio 23 Ratio (12-20); Bilirubin,Total 1.7 mg/dL (0.3-1.2); Blood Urea Nitrogen 27 mg/dL (9-23); Calcium 9.0 mg/dL (8.3-10.6); Calcium (Corrected) 9.6 mg/dL (8.5-10.1); Carbon Dioxide 20.0 mMol/L (20.0-31.0); Chloride 99 mMol/L (98-107); Creatinine (Component) 1.2 mg/dL (0.6-1.3); Estimated Creatinine Clearance 70.1 mL/min (>60); Globulin 3.3 gm/dL (2.3-3.5); Glucose 100 mg/dL (74-106); Magnesium 2.0 mg/dL (1.6-2.6); Osmolality,Calculated 275 (275-295); Potassium 3.9 mMol/L (3.4-5.1); Sodium 135 mMol/L (136-145); Total Protein 6.6 gm/dL (5.7-8.2); eGFR > 60 See Note
[2025-06-07] MEDS: LEVOFLOXACIN/D5W 750MG IVPB 750 MG/150 ML BAG 100 MG IV (09:12)
[2025-06-07] MEDS: CITRIC ACID/SODIUM CITR 15 ML UDC (BICITRA) 30 ML PO ×2 (09:13→21:12)
[2025-06-07] MEDS: NICOTINE PATCH 21 MG/24 HR PATCH.TD24 TOP (09:14)
[2025-06-07] MEDS: FUROSEMIDE INJ 10 MG/ML 4ML VIAL 80 MG IVP (09:16)
[2025-06-07] MEDS: SPIRONOLACTONE 25 MG TABLET 50 MG PO (09:17)
[2025-06-07] MEDS: LACTULOSE SYRUP 20 GM/30 ML UDC 30 GM PO ×2 (13:09→21:12)
--- NOTE | 2025-06-07 14:24 | PD.RESPRO ---
Documentation for date of: 06/07/25 Subjective Subjective Interval history: Patient seen and examined at bedside; no acute events overnight. Patient feeling agitated for having been on bed all the time. Patient to be up to chair and out of bed today with assistance. Patient eating and tolerating intake well. States to be pain-free without shortness of breath. Overnight patient stayed in NSR with occasional PVCs. Patient moved out of bed and onto chair where he stayed for half an hour and back to bed. Will need PleurX catheter, spoke to Dr. Dean who is in agreement with performing the procedure however will have the patient off heparin for 2 days before procedure. Likely to take place on Monday. Also spoke to RT and recommended titrating down on oxygen requirement as it is necessary to obtain biopsies of the lung mass for the patient to be on low oxygen requirement. Exam Vital Signs Temp Pulse Resp BP Pulse Ox O2 Del Method O2 Flow Rate 97.5 F 98 34 H 90/65 92 L High Flow Nasal Cannula 35 06/07/25 08:00 06/07/25 13:08 06/07/25 10:42 06/07/25 13:08 06/07/25 10:42 06/07/25 08:00 06/07/25 10:34 FiO2 50 06/07/25 10:42 Narrative Exam General: Awake and in no acute distress; alert. moderately anxious, and agitated HEENT: PERRLA. Normocephalic, atraumatic, mucous membranes moist. Heart: Regular rate and rhythm, normal S1 and S2, no murmurs appreciated. Lungs: Decreased breath sounds bilaterally. coarse breathe sounds Rt lower lobe zone. Abdomen: Soft, mildly distended, nontender, positive bowel sounds. No guarding or rebound tenderness. Mild ascites. : Aguilar in place. Large left inguinal mass, no discoloration or tenderness. Neurologic: Alert and oriented x3, no gross neurological deficit, and patient able to move all 4 extremities. Extremities: 2+ pitting edema extending up to knees. Skin: No rash or ecchymoses. Objective Labs 06/07/25 05:56 06/07/25 05:56 Labs: Laboratory Results - last 24 hr 06/06/25 06/07/25 23:41 05:56 WBC 16.9 H RBC 4.84 Hgb 12.6 L Hct 40.5 L MCV 84 MCH 26.0 MCHC 31.1 RDW Std Deviation 60.8 H Plt Count 164 Neut % (Auto) 83 H Lymph % (Auto) 6 L [place] % (Auto) 6 Eos % (Auto) 0 Baso % (Auto) 0 Neut # (Auto) 13.9 H Lymph # (Auto) 1.0 [place] # (Auto) 0.9 H Eos # (Auto) 0.0 Baso # (Auto) 0.0 Immature Gran # (Auto) 1.03 H Absolute Nucleated RBC 0.00 Immature Gran % 6 H Nucleated RBC % 0 APTT 32.0 D Sodium 135 L Potassium 3.9 Chloride 99 Carbon Dioxide 20.0 Anion Gap 16 BUN 27 H Creatinine 1.2 Estim Creat Clear Calc 70.1 eGFR > 60 BUN/Creatinine Ratio 23 H Glucose 100 Calculated Osmolality 275 Calcium 9.0 Corrected Calcium 9.6 Magnesium 2.0 Total Bilirubin 1.7 H AST 115 H ALT 107 H Alkaline Phosphatase 78 Total Protein 6.6 Albumin 3.3 L Globulin 3.3 Albumin/Globulin Ratio 1.0 L Ur Collection Type Clean Catch Urine Color Yellow Urine Clarity Clear Urine pH 5.0 Ur Specific [place] 1.017 Urine Protein Negative Urine Glucose (UA) Negative Urine Ketones Negative Urine Blood Negative Urine Nitrite Negative Urine Bilirubin Negative Urine Urobilinogen (Auto) Negative Ur Leukocyte Esterase Negative Urine RBC 1 Urine WBC < 1 Ur Squamous Epith Cells < 1 Urine Bacteria None Hyaline Casts < 1 ABG Interpretation ABG results: 05/29/25 05/31/25 05/31/25 05:33 10:53 17:16 ABG pH 7.38 7.30 L 7.52 H D ABG pCO2 24 L 33 28 L ABG pO2 57 L* 125 H D 50 L* D ABG HCO3 14 L 16 L 23 ABG O2 Saturation 87 L 99 H 88 L ABG Base Excess -9 L -9 L 1 05/31/25 06/01/25 06/03/25 23:51 05:01 20:42 ABG pH 7.49 H 7.53 H 7.54 H ABG pCO2 29 L 27 L 26 L ABG pO2 57 L* 51 L* 60 L ABG HCO3 22 23 22 ABG O2 Saturation 91 88 L 88 L ABG Base Excess 0 1 0 06/04/25 06/06/25 10:17 07:58 ABG pH 7.54 H 7.50 H ABG pCO2 26 L 24 L ABG pO2 55 L* 50 L* ABG HCO3 22 19 L ABG O2 Saturation 91 87 L ABG Base Excess 1 -3 Quality Measures Quality Measures VTE prophylaxis Assessment & Plan Assessment Current Active Medications: Generic Name Dose Route Start Last Admin Trade Name Freq PRN Reason Stop Dose Admin Acetaminophen 325 mg 05/29/25 12:07 06/06/25 09:31 Acetaminophen 325 Mg Tablet PO 06/28/25 12:06 325 mg Q6H PRN Administration Fever >101.5, Pain 1-3 Albuterol/Ipratropium 3 ml 05/29/25 12:07 06/06/25 05:07 Albuterol/Ipratropium (Duoneb) Rt Becky 3 Ml Nebu INH 06/28/25 12:06 3 ml Q2HR PRN Administration SHORTNESS OF BREATH OR WHEEZE Citric Acid/Sodium Citrate 30 ml 06/06/25 09:00 06/07/25 09:13 Citric Acid/Sodium Citr 15 Ml Udc (Bicitra) PO 06/08/25 08:59 30 ml BID COTY Administration Clonazepam 0.5 mg 06/06/25 21:00 06/07/25 09:17 Clonazepam 0.5 Mg Tablet PO 06/08/25 20:59 0.5 mg BID COTY Administration Furosemide 80 mg 06/07/25 09:00 06/07/25 09:16 Furosemide Inj 10 Mg/Ml 4ml Vial IVP 07/07/25 08:59 80 mg QDAY COTY Administration Ipratropium [place] 0.5 mg 06/04/25 19:00 06/07/25 10:31 Ipratropium Rt 0.5 Mg/ 2.5 Ml Nebu INH 07/04/25 18:59 0.5 mg Q4HRRT COTY Administration Lactulose 30 gm 06/05/25 14:45 06/07/25 13:09 Lactulose Syrup 20 Gm/30 Ml Udc PO 07/05/25 14:44 30 gm TID COTY Administration Protocol Levalbuterol HCl 1.25 mg 06/04/25 19:00 06/07/25 10:31 Levalbuterol Rt 1.25 Mg/0.5 Ml Nebu INH 07/04/25 18:59 1.25 mg Q4HRRT COTY Administration Lorazepam 0.5 mg 06/03/25 09:28 06/06/25 23:29 Lorazepam 0.5 Mg Tablet PO 06/08/25 09:27 0.5 mg Q8HR PRN Administration ANXIETY Midodrine 15 mg 06/04/25 10:20 06/07/25 13:08 Midodrine 5 Mg Tablet PO 07/04/25 10:19 15 mg TID COTY Administration Nicotine 21 mg 05/29/25 12:15 06/07/25 09:14 Nicotine Patch 21 Mg/24 Hr Patch.Td24 TOP 06/28/25 12:14 21 mg QDAY COTY Administration Ondansetron HCl 4 mg 05/29/25 12:07 Ondansetron Inj 2 Mg/Ml Inj 2 Ml IVP 06/28/25 12:06 Q6H PRN NAUSEA OR VOMITING Protocol Pantoprazole Sodium 40 mg 06/08/25 09:00 Pantoprazole 40 Mg Tablet PO 06/28/25 12:14 QDAY COTY Polyethylene Glycol 17 gm 06/02/25 10:30 06/07/25 11:26 Polyethylene Glycol 17 Gm Packet PO 07/02/25 10:29 Not Given QDAY COTY Prednisone 40 mg 06/07/25 10:05 06/07/25 11:26 Prednisone 20 Mg Tablet PO 06/14/25 10:05 40 mg QDAY COTY Administration Rifaximin 550 mg 06/01/25 10:30 06/07/25 09:17 Rifaximin 550 Mg Tablet PO 06/08/25 10:29 550 mg BID COTY Administration Sodium Chloride 3 ml 05/31/25 10:52 06/03/25 15:56 Sodium Chloride Rt Becky 0.9% 3 Ml Nebu INH 06/30/25 10:51 3 ml PRN PRN Administration SOLN Spironolactone 50 mg 06/06/25 09:00 06/07/25 09:17 Spironolactone 25 Mg Tablet PO 07/06/25 08:59 50 mg QDAY COTY Administration Plan Patient is a 64 year old male with past medical history of schizophrenia, COPD on supplemental home oxygen, chronic active smoker greater than 40 pack years, and status post right inguinal hernia repair in 2018 who presented to ED on 05/29/25 for shortness of breath. Patient was admitted telemetry for acute on chronic hypoxic respiratory failure, pleural effusion, pneumonia and pulmonary emboli, upgraded to ICU on 05/31 for worsening acute on chronic respiratory distress. Downgraded back to telemetry as patient has stabilized and tolerating high flow.? #Acute on chronic hypoxic respiratory failure? #Right upper lung tumor, Possible malignancy? #Right pleural effusion s/p thoracentesis (05/29, 06/01)? #Recurrent Pleural Effusions, likely parapneumonic - Chronic smoking history as above? 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 -S/p thoracentesis, -750 cc straw colored fluid? -Per lights criteria, fluid is exudative, likely secondary to malignancy? - Pleural fluid culture 05/29 grew Bacillus (likely cereus)? - CT head with and without contrast showed no cranial masses? + recent thoracentesis on 06/01 with 1.2 L drained of straw fluid, Light's criteria positive for exudative effusion.? + Repeat thoracentesis (06/04) : 1.5L of strawberry colored fluid drained from the Rt lung 06/04:?patient had increased work of breathing and respiratory rate was increased. CXR showed fluid?reaccumulation?and bedside US revealed right lung fluid pockets that were easily accessible. 1.5L of fluid was successfully drained from R lung.?FUP CXR showed apical?pnuemothorax.?Fluid re-accumulation most likely secondary to lung mass c/f malignancy pending lung bx? +LDH Pleural:serum 378:229 >.66 (exudative) +Protein pleural:serum 3.3:6.5 >0.5 (exudative) Plan:? -Physiotherapist to try and titrate down oxygen requirements in preparation also for lung tumor biopsy. - Will need PleurX catheter, spoke to Dr. Dean who is in agreement with performing the procedure however will have the patient off heparin for 2 days before procedure. -morning chest x-ray further evaluation to see if lung has expanded.?? -encourage incentive spirometry use.?? -Thoracentesis did not reveal any malignant cells.? - Per pathology, atypical?epitheial?cells, but not enough for definitive diagnosis of?maligancy; they suggest biopsy. - Ordered CT lung biopsy per oncology recommendations; on hold at this time due high O2 requirements ? ? ? #COPD exacerbation? Likely secondary to pneumonia? - Chronic smoking history? - Presented with shortness of breath requiring 10 L supplemental oxygen at home. Per chart review patient usually uses a liters at home per brother.?? - Used rescue inhaler use for the past 2 weeks prior to admission? - Lactic 9.0, Pro-Antony 1.33, WBC 14 with neutrophil dominance? - CT showed bilateral pneumonia and left upper lobe and right lower lobe? - Treated with azithromycin, Zosyn and Vancomycin (05/29?06/01)? +Patient takes breaths between words and has elevated respiratory rate that?worsens with?Bipap?due to increased anxiety.? ? Treatment:? - Prednisone PO 40mg Qday - IV levofloxacin (06/01- 06/07) completed 8d course, discontinued -?lasix?80?qday - Levalbuterol/ipratropium every 6?hoursla? -?DuoNebs?as needed? - Wean oxygen as tolerated? - Midodrine 15 TID to for SBP <90 ? ? #Bilateral pulmonary embolisms? Likely secondary to?hypercoagable?state in setting of malignancy? - Presented with shortness of breath requiring 10 L supplemental oxygen at home.? - CTA showed bilateral pulmonary arterial emboli? - D-dimer elevated?? ? Plan:? -Heparin GTT, on hold while awaiting PleurX catheter placement? -Monitor for bleed? -Cardiology consulted, appreciate recommendations?? ? #Cirrhosis? #Transaminitis (improving)? #Hyperbilirubinemia? #Anasarca? -patient consumed moderate amount of alcohol for many years? -Has elevated INR and thrombocytopenia, indicative of chronic pathology? -On exam, mild ascites and anasarca, improved s/p diuresis?? -AST 436 -> 41? - ALT 398 -> 105? Hepatitis panel?non reactive?? ? Plan:? -?spiranolactone?100 mg daily?decreased to 50mg daily due to hyponatremia and HAGMA - rifaximin 550 mg BID? - Recommend patient follow up outpatient with hepatology/GI? #HAGMA AG 16, bicarb 18.2 ->20 -ordered bicitra 30ml bid ? #Pneumonia Likely secondary to gram-negative versus gram-positive organisms? #Parapneumonic effusion? - Presented with worsening breathing and increased oxygen requirements. No fevers at home.? - Likely infectious in setting of Bacillus in pleural fluid? - WBC 14 -> 16 -> 15? - Influenza A&B, COVID negative? - UA clean?? - CT showed bilateral pneumonia and left upper lobe and right lower lobe? - Sputum Gram stain showed rare WBCs, 1+ GPC, 1+ GNR? - Pleural fluid culture 05/29 grew Bacillus (likely cereus)? +LDH Pleural:serum 378:229 >.66 (exudative) +Protein pleural:serum 3.3:6.5 >0.5 (exudative) Treatment:? - Discontinued azithromycin, Zosyn and vancomycin? - IV levofloxacin (06/01- 06/07) completed 8d course, discontinued - Monitor a.m. CBC? - Wean oxygen as tolerated? - Follow up repeat pleural studies and cytology?? -?lasix?40?qday? #SURYA? -Hemoglobin 12.4? -Iron studies showed low iron and iron saturation, ferritin and TIBC within normal limits? Treatment:? -No active treatment at this time? -Consider starting on iron once infection cleared? ? ? #History of schizophrenia? #Agitation/Anxiety?? - Per patient, he had been diagnosed years ago by PCP, now retired? - Not on any psych medication? - During rapid, patient was agitated with increased work of breathing, causing him to desaturate to 80%. Wanted to?removed?the BiPAP mask.? Treatment:? - Not currently on any psych medications?? - Hydroxyzine as needed for agitation?? - Follow-up with family or PCP regarding diagnosis? - Avoid overuse of benzodiazepines as may contribute to decreased respiratory drive Health maintenance:? Diet: special DVT prophylaxis: Heparin drip? Aguilar: None? Lines: PIV? CODE STATUS: Full This case was discussed with my attending physician, Dr. Sultana, and senior resident, Dr Perez. Even though this this note was carefully revised there may still be minor errors in marketing admin due to voice recognition software. Jozef Crisostomo, DO PGY I Senior Resident Attestation: This morning patient was really agitated, and wanted to go home. He demanded to be seated up to chair. And later, he was transferred to chair. Will continue with clonazepam 0.5 mg twice daily scheduled, and as needed Ativan 0.5 mg IV up to 3 times a day for agitation. His IV antibiotics course was completed. He is still on high flow nasal cannula, and once he is about 48 hours out of heparin drip, we will proceed with PleurX tube. I discussed with and supervised the hospitality intern physician involved in the care of this patient. I personally saw and examined the patient and discussed the assessment and plan with the entire medicine team, including my attending. I agree with the assessment and plan as documented above. Gerber Perez MD PGY3 Internal Medicine Attending Provider Attestation/Addendum I have discussed and was present for the essential components of the history, physical examination, diagnosis, and treatment plan with the resident. I agree with the patient's care as documented by the resident and amended herein by me. Per Sultana DO. Although this document has been carefully reviewed, there may still be some phonetic and other typographical errors. These errors are purely grammatical due to imperfections in the software program and should not be construed in any way to compromise the substance of the patient's medical care during this visit. Patient seen and evaluated this AM. No acute events overnight, I/O 1331/850 mL overnight. Blood pressure soft in the a.m. 89/70 however patient awake and alert. Pulse 101, respiratory rate 30, patient still on high flow nasal cannula, 35 L at 85% FiO2. Significant labs include a WBC of 16.9, slight uptrend since yesterday however has been elevated for the past several days, patient was started on steroids as well, hemoglobin 12.6, sodium 135, chloride 27 bicarb 20, patient still demonstrating transaminitis and an elevated T. bili at 1.7. Anion gap measured to be 16. Will continue spironolactone, rifaximin, Lasix, midodrine and Bicitra for now. We have held the heparin drip for the patient's bilateral pulmonary emboli due to the fact we would like a PleurX catheter placed on Monday, drip held at the direction of interventional radiology. We did start the patient on steroids, prednisone 40 mg p.o. daily for COPD exacerbation in setting of all of his other issues to include a large right lobe lung mass, pneumonia, pleural effusion and bilateral pulmonary emboli. Will continue to monitor closely, will keep getting patient up to the chair which hopefully improves his overall function. Continue to monitor closely
[2025-06-08] VITALS (18 sets, daily range): BP systolic 88–111; BP diastolic 70–80; PULSE 88–98; RESP 12–31; TEMP 36.2–37; O2SAT 90–96; BMI 22.3
[2025-06-08] MEDS: LEVALBUTEROL RT 1.25 MG/0.5 ML NEBU INH ×6 (02:27→23:35)
[2025-06-08] MEDS: IPRATROPIUM RT 0.5 MG/ 2.5 ML NEBU INH ×6 (02:27→23:35)
[2025-06-08] MEDS: LACTULOSE SYRUP 20 GM/30 ML UDC 30 GM PO (05:42)
[2025-06-08 06:01] LABS: Basophils # (Auto) 0.0 Thou/mm3 (0.0-0.2); Basophils % (Auto) 0 % (0-2.5); Eosinophils # (Auto) 0.0 Thou/mm3 (0.0-0.5); Eosinophils % (Auto) 0 % (0-10); Hematocrit 40.6 % (41.0-53.0); Hemoglobin 12.7 g/dL (13.5-16.0); Immature Granulocytes Auto 1.13 Thou/mm3 (0.00-0.00); Lymphocytes # (Auto) 1.0 Thou/mm3 (1.0-4.8); Lymphocytes % (Auto) 6 % (10-50); Mean Corpuscular HGB Conc 31.3 g/dl (31.0-37.0); Mean Corpuscular Hemoglobin 26.3 pg (25.0-35.0); Mean Corpuscular Volume 84 fL (80-100); Monocytes # (Auto) 0.6 Thou/mm3 (0.0-0.8); Monocytes % (Auto) 4 % (0-12); Neutrophils # (Auto) 12.1 Thou/mm3 (1.8-7.7); Neutrophils % (Auto) 82 % (37-80); Nucleated Red Blood Cell # 0.03 Thou/mm3 (0.00-0.00); Nucleated Red Blood Cell % 0 /100 WBC (0); Platelet Count 153 Thou/mm3 (140-440); RDW Standard Deviation 61.5 fL (35.1-43.9); Red Blood Count 4.82 Miln/mm3 (4.50-5.90); White Blood Count 14.8 Thou/mm3 (3.8-10.6)
[2025-06-08 06:34] LABS: Alanine Aminotransferase 104 U/L (10-49); Albumin, Serum 3.0 gm/dL (3.4-4.8); Albumin/Globulin Ratio 0.9 (1.2-2.2); Alkaline Phosphatase 75 U/L (46-116); Anion Gap 12 (7-16); Aspartate Amino Transferase 103 U/L (0-34); BUN/Creatinine Ratio 24 Ratio (12-20); Bilirubin,Total 1.4 mg/dL (0.3-1.2); Blood Urea Nitrogen 31 mg/dL (9-23); Calcium 9.2 mg/dL (8.3-10.6); Calcium (Corrected) 10.0 mg/dL (8.5-10.1); Carbon Dioxide 22.9 mMol/L (20.0-31.0); Chloride 101 mMol/L (98-107); Creatinine (Component) 1.3 mg/dL (0.6-1.3); Estimated Creatinine Clearance 62.3 mL/min (>60); Globulin 3.4 gm/dL (2.3-3.5); Glucose 125 mg/dL (74-106); Magnesium 2.0 mg/dL (1.6-2.6); Osmolality,Calculated 279 (275-295); Potassium 4.1 mMol/L (3.4-5.1); Sodium 136 mMol/L (136-145); Total Protein 6.4 gm/dL (5.7-8.2); eGFR > 60 See Note
[2025-06-08] MEDS: SPIRONOLACTONE 25 MG TABLET 50 MG PO (08:47)
[2025-06-08] MEDS: NICOTINE PATCH 21 MG/24 HR PATCH.TD24 TOP (08:48)
[2025-06-08] MEDS: PANTOPRAZOLE 40 MG TABLET PO (08:48)
--- NOTE | 2025-06-08 11:59 | ESPR_ITS ---
<Statement entered by Johnny Cameron MD - 06/08/25 15:33> I saw and examined patient personally and supervised PGY 1 resident, Dr. Crisostomo with formulating a management plan. I agree with the documentation with the exceptions as listed below. Patient saturating between 88 and 91% on high flow nasal cannula at 35 L 85% FiO2. While sleeping he is on BiPAP. Still awaiting repeat pleural fluid cytology from 06/06. Today is day 2 of prednisone 40 mg p.o. daily for severe pneumonia and possible ARDS. Will hold diuresis for today due to hypotension. Will continue weaning supplemental O2 as tolerated. Also weaned his clonazepam to 0.25 mg p.o. twice daily from 0.5 due to patient's somnolence. Plan of care discussed with Attending Dr. Kayy Cameron MD PGY 2 Disclaimer: This note was dictated by speech recognition. Minor errors in junior high school teacher may be present due to voice recognition software. Documentation for date of: 06/08/25 Subjective Subjective Interval history: Patient seen and examined at bedside; no acute events overnight. Patient feeling lethargic. Slept well. Patient to be up to chair and out of bed today with assistance. Patient eating and tolerating intake well. States to be pain- free without shortness of breath. Overnight patient stayed in NSR with occasional PVCs +bigeminy and trigeminy. Patient was moved out of bed and onto chair where he stayed for half an hour and back to bed, again today. Will need PleurX catheter, spoke to Dr. Dean who is in agreement with performing the procedure however will have the patient off heparin for 2 days before procedure. Likely to take place on Monday. Also spoke to RT and recommended titrating down on oxygen requirement as it is necessary to obtain biopsies of the lung mass for the patient to be on low oxygen requirement. Exam Vital Signs Temp Pulse Resp BP Pulse Ox O2 Del Method O2 Flow Rate 97.2 F 97 29 H 100/78 94 L High Flow Nasal Cannula 35 06/08/25 08:00 06/08/25 10:14 06/08/25 10:14 06/08/25 08:47 06/08/25 10:14 06/08/25 08:00 06/08/25 08:00 FiO2 65 06/08/25 10:14 Narrative Exam General: Awake and in no acute distress; alert. moderately anxious, and agitated HEENT: PERRLA. Normocephalic, atraumatic, mucous membranes moist. Heart: Regular rate and rhythm, normal S1 and S2, no murmurs appreciated. Lungs: Decreased breath sounds bilaterally. coarse breathe sounds Rt lower lobe zone. Abdomen: Soft, mildly distended, nontender, positive bowel sounds. No guarding or rebound tenderness. Mild ascites. : Aguilar in place. Large left inguinal mass, no discoloration or tenderness. Neurologic: Alert and oriented x3, no gross neurological deficit, and patient able to move all 4 extremities. Extremities: 2+ pitting edema extending up to knees. Skin: No rash or ecchymoses. Objective Labs 06/08/25 05:23 06/08/25 05:23 Labs: Laboratory Results - last 24 hr 06/08/25 05:23 WBC 14.8 H RBC 4.82 Hgb 12.7 L Hct 40.6 L MCV 84 MCH 26.3 MCHC 31.3 RDW Std Deviation 61.5 H Plt Count 153 Neut % (Auto) 82 H Lymph % (Auto) 6 L Leslie % (Auto) 4 Eos % (Auto) 0 Baso % (Auto) 0 Neut # (Auto) 12.1 H Lymph # (Auto) 1.0 Leslie # (Auto) 0.6 Eos # (Auto) 0.0 Baso # (Auto) 0.0 Immature Gran # (Auto) 1.13 H Absolute Nucleated RBC 0.03 H Immature Gran % 8 H Nucleated RBC % 0 Sodium 136 Potassium 4.1 Chloride 101 Carbon Dioxide 22.9 Anion Gap 12 BUN 31 H Creatinine 1.3 Estim Creat Clear Calc 62.3 eGFR > 60 BUN/Creatinine Ratio 24 H Glucose 125 H Calculated Osmolality 279 Calcium 9.2 Corrected Calcium 10.0 Magnesium 2.0 Total Bilirubin 1.4 H AST 103 H ALT 104 H Alkaline Phosphatase 75 Total Protein 6.4 Albumin 3.0 L Globulin 3.4 Albumin/Globulin Ratio 0.9 L ABG Interpretation ABG results: 05/29/25 05/31/25 05/31/25 05:33 10:53 17:16 ABG pH 7.38 7.30 L 7.52 H D ABG pCO2 24 L 33 28 L ABG pO2 57 L* 125 H D 50 L* D ABG HCO3 14 L 16 L 23 ABG O2 Saturation 87 L 99 H 88 L ABG Base Excess -9 L -9 L 1 05/31/25 06/01/25 06/03/25 23:51 05:01 20:42 ABG pH 7.49 H 7.53 H 7.54 H ABG pCO2 29 L 27 L 26 L ABG pO2 57 L* 51 L* 60 L ABG HCO3 22 23 22 ABG O2 Saturation 91 88 L 88 L ABG Base Excess 0 1 0 06/04/25 06/06/25 10:17 07:58 ABG pH 7.54 H 7.50 H ABG pCO2 26 L 24 L ABG pO2 55 L* 50 L* ABG HCO3 22 19 L ABG O2 Saturation 91 87 L ABG Base Excess 1 -3 Quality Measures Quality Measures VTE prophylaxis Assessment & Plan Assessment Current Active Medications: Generic Name Dose Route Start Last Admin Trade Name Freq PRN Reason Stop Dose Admin Acetaminophen 325 mg 05/29/25 12:07 06/06/25 09:31 Acetaminophen 325 Mg Tablet PO 06/28/25 12:06 325 mg Q6H PRN Administration Fever >101.5, Pain 1-3 Albuterol/Ipratropium 3 ml 05/29/25 12:07 06/06/25 05:07 Albuterol/Ipratropium (Duoneb) Rt Becky 3 Ml Nebu INH 06/28/25 12:06 3 ml Q2HR PRN Administration SHORTNESS OF BREATH OR WHEEZE Clonazepam 0.25 mg 06/08/25 11:59 Clonazepam 0.5 Mg Tablet PO 06/13/25 11:58 BID COTY Furosemide 80 mg 06/07/25 09:00 06/07/25 09:16 Furosemide Inj 10 Mg/Ml 4ml Vial IVP 07/07/25 08:59 80 mg On Hold: 06/08/25 08:17 QDAY COTY Administration Ipratropium [place] 0.5 mg 06/04/25 19:00 06/08/25 10:13 Ipratropium Rt 0.5 Mg/ 2.5 Ml Nebu INH 07/04/25 18:59 0.5 mg Q4HRRT COTY Administration Lactulose 30 gm 06/05/25 14:45 06/08/25 05:42 Lactulose Syrup 20 Gm/30 Ml Udc PO 07/05/25 14:44 30 gm TID COTY Administration Protocol Levalbuterol HCl 1.25 mg 06/04/25 19:00 06/08/25 10:13 Levalbuterol Rt 1.25 Mg/0.5 Ml Nebu INH 07/04/25 18:59 1.25 mg Q4HRRT COTY Administration Midodrine 15 mg 06/04/25 10:20 06/08/25 05:29 Midodrine 5 Mg Tablet PO 07/04/25 10:19 Not Given TID COTY Nicotine 21 mg 05/29/25 12:15 06/08/25 08:48 Nicotine Patch 21 Mg/24 Hr Patch.Td24 TOP 06/28/25 12:14 21 mg QDAY COTY Administration Ondansetron HCl 4 mg 05/29/25 12:07 Ondansetron Inj 2 Mg/Ml Inj 2 Ml IVP 06/28/25 12:06 Q6H PRN NAUSEA OR VOMITING Protocol Pantoprazole Sodium 40 mg 06/08/25 09:00 06/08/25 08:48 Pantoprazole 40 Mg Tablet PO 06/28/25 12:14 40 mg QDAY COTY Administration Polyethylene Glycol 17 gm 06/02/25 10:30 06/07/25 11:26 Polyethylene Glycol 17 Gm Packet PO 07/02/25 10:29 Not Given On Hold: 06/08/25 07:16 QDAY COTY Prednisone 40 mg 06/07/25 10:05 06/08/25 08:48 Prednisone 20 Mg Tablet PO 06/14/25 10:05 40 mg QDAY COTY Administration Sodium Chloride 3 ml 05/31/25 10:52 06/03/25 15:56 Sodium Chloride Rt Becky 0.9% 3 Ml Nebu INH 06/30/25 10:51 3 ml PRN PRN Administration SOLN Spironolactone 50 mg 06/06/25 09:00 06/08/25 08:47 Spironolactone 25 Mg Tablet PO 07/06/25 08:59 50 mg On Hold: 06/08/25 09:59 QDAY COTY Administration Plan Patient is a 64 year old male with past medical history of schizophrenia, COPD on supplemental home oxygen, chronic active smoker greater than 40 pack years, and status post right inguinal hernia repair in 2018 who presented to ED on 05/29/25 for shortness of breath. Patient was admitted telemetry for acute on chronic hypoxic respiratory failure, pleural effusion, pneumonia and pulmonary emboli, upgraded to ICU on 05/31 for worsening acute on chronic respiratory distress. Downgraded back to telemetry as patient has stabilized and tolerating high flow.? #Acute on chronic hypoxic respiratory failure?secondary to likely malignancy, recurrent pleural effusions, bilateral pulmonary emboli and underlying COPD #Right upper lung tumor, Possible malignancy? #Right pleural effusion s/p thoracentesis (05/29, 06/01)? #Recurrent Pleural Effusions, likely parapneumonic - Chronic smoking history as above? 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 -S/p thoracentesis, -750 cc straw colored fluid? -Per lights criteria, fluid is exudative, likely secondary to malignancy? - Pleural fluid culture 05/29 grew Bacillus (likely cereus)? - CT head with and without contrast showed no cranial masses? + recent thoracentesis on 06/01 with 1.2 L drained of straw fluid, Light's criteria positive for exudative effusion.? + Repeat thoracentesis (06/04) : 1.5L of strawberry colored fluid drained from the Rt lung 06/04:?patient had increased work of breathing and respiratory rate was increased. CXR showed fluid?reaccumulation?and bedside US revealed right lung fluid pockets that were easily accessible. 1.5L of fluid was successfully drained from R lung.?FUP CXR showed apical?pnuemothorax.?Fluid re-accumulation most likely secondary to lung mass c/f malignancy pending lung bx? +LDH Pleural:serum 378:229 >.66 (exudative) +Protein pleural:serum 3.3:6.5 >0.5 (exudative) Plan:? -Physiotherapist to try and titrate down oxygen requirements in preparation also for lung tumor biopsy. - Will need PleurX catheter, spoke to Dr. Dean who is in agreement with performing the procedure however will have the patient off heparin for 2 days before procedure. -morning chest x-ray further evaluation to see if lung has expanded. -held lasix 80mg qday and spironolactone 50 due to worsening kidney fx and HoTN?? -encourage incentive spirometry use.?? -Thoracentesis did not reveal any malignant cells.? - Per pathology, atypical?epitheial?cells, but not enough for definitive diagnosis of?maligancy; they suggest biopsy. - Ordered CT lung biopsy per oncology recommendations; on hold at this time due high O2 requirements ? ?? #COPD exacerbation? Likely secondary to pneumonia? - Chronic smoking history? - Presented with shortness of breath requiring 10 L supplemental oxygen at home. Per chart review patient usually uses a liters at home per brother.?? - Used rescue inhaler use for the past 2 weeks prior to admission? - Lactic 9.0, Pro-Antony 1.33, WBC 14 with neutrophil dominance? - CT showed bilateral pneumonia and left upper lobe and right lower lobe? - Treated with azithromycin, Zosyn and Vancomycin (05/29?06/01)? +Patient takes breaths between words and has elevated respiratory rate that?worsens with?Bipap?due to increased anxiety.? ? Treatment:? - Prednisone PO 40mg Qday - IV levofloxacin (06/01- 06/07) completed 8d course, discontinued - Levalbuterol/ipratropium every 6?hoursla? -?DuoNebs?as needed? - Wean oxygen as tolerated? - Midodrine 15 TID to for SBP <90 #YASMIN Creatinine 1.3 elevated above baseline Cr range of .8 - 1.0 eGFR >60, BUN 31, BUN/Cr 24. prerenal azotemia YASMIN likely 2/2 hypovolemia. ? will hold spirinolactone and lasix - Daily renal panel to trend BUN, Cr, and electrolytes. ?Renally dose meds, avoid overdiuresis, and nephrotoxins. ? #Bilateral pulmonary embolisms? Likely secondary to?hypercoagable?state in setting of malignancy? - Presented with shortness of breath requiring 10 L supplemental oxygen at home.? - CTA showed bilateral pulmonary arterial emboli? - D-dimer elevated?? ? Plan:? -Heparin GTT, on hold while awaiting PleurX catheter placement? -Monitor for bleed? -Cardiology consulted, appreciate recommendations?? #Agitation Patient becoming restless through the course of his prolonged hospital stay -Klonipin 0.25mg bid (reduced from 0.5mg because of lethargy) ? #Cirrhosis? #Transaminitis (improving)? #Hyperbilirubinemia? #Anasarca? -patient consumed moderate amount of alcohol for many years? -Has elevated INR and thrombocytopenia, indicative of chronic pathology? -On exam, mild ascites and anasarca, improved s/p diuresis?? -AST 436 -> 41? - ALT 398 -> 105? Hepatitis panel?non reactive?? ? Plan:? -?HOLD spiranolactone?100 mg daily?decreased to 50mg daily due to hyponatremia and HAGMA - rifaximin 550 mg BID? - Recommend patient follow up outpatient with hepatology/GI? #HAGMA AG 16, bicarb 18.2 ->20 -ordered bicitra 30ml bid ? #Pneumonia Likely secondary to gram-negative versus gram-positive organisms? #Parapneumonic effusion? - Presented with worsening breathing and increased oxygen requirements. No fevers at home.? - Likely infectious in setting of Bacillus in pleural fluid? - WBC 14 -> 16 -> 15? - Influenza A&B, COVID negative? - UA clean?? - CT showed bilateral pneumonia and left upper lobe and right lower lobe? - Sputum Gram stain showed rare WBCs, 1+ GPC, 1+ GNR? - Pleural fluid culture 05/29 grew Bacillus (likely cereus)? +LDH Pleural:serum 378:229 >.66 (exudative) +Protein pleural:serum 3.3:6.5 >0.5 (exudative) Treatment:? - Discontinued azithromycin, Zosyn and vancomycin? - IV levofloxacin (06/01- 06/07) completed 8d course, discontinued - Monitor a.m. CBC? - Wean oxygen as tolerated? - Follow up repeat pleural studies and cytology?? -?lasix?40?qday? #SURYA? -Hemoglobin 12.4? -Iron studies showed low iron and iron saturation, ferritin and TIBC within normal limits? Treatment:? -No active treatment at this time? -Consider starting on iron once infection cleared? ? ? #History of schizophrenia? #Agitation/Anxiety?? - Per patient, he had been diagnosed years ago by PCP, now retired? - Not on any psych medication? - During rapid, patient was agitated with increased work of breathing, causing him to desaturate to 80%. Wanted to?removed?the BiPAP mask.? Treatment:? - Not currently on any psych medications?? - Hydroxyzine as needed for agitation?? - Follow-up with family or PCP regarding diagnosis? - Avoid overuse of benzodiazepines as may contribute to decreased respiratory drive Health maintenance:? Diet: special DVT prophylaxis: Heparin drip? Aguilar: None? Lines: PIV? CODE STATUS: Full This case was discussed with my attending physician, Dr. Sultana, and senior resident, Dr Cameron. Even though this this note was carefully revised there may still be minor errors in junior high school teacher due to voice recognition software. Jozef Crisostomo DO PGY I Attending Provider Attestation/Addendum I have discussed and was present for the essential components of the history, physical examination, diagnosis, and treatment plan with the resident. I agree with the patient's care as documented by the resident and amended herein by me. Per Sultana DO. Although this document has been carefully reviewed, there may still be some phonetic and other typographical errors. These errors are purely grammatical due to imperfections in the software program and should not be construed in any way to compromise the substance of the patient's medical care during this visit.
[2025-06-08] MEDS: MIDODRINE 5 MG TABLET 15 MG PO ×2 (14:37→21:00)
[2025-06-09] VITALS (17 sets, daily range): BP systolic 85–108; BP diastolic 62–82; PULSE 81–132; RESP 12–36; TEMP 36–36.7; O2SAT 90–96; BMI 22.6
[2025-06-09] MEDS: ALBUTEROL/IPRATROPIUM (Duoneb) RT SOL 3 ML NEBU INH (02:09)
[2025-06-09] MEDS: IPRATROPIUM RT 0.5 MG/ 2.5 ML NEBU INH ×6 (02:09→22:38)
[2025-06-09] MEDS: LEVALBUTEROL RT 1.25 MG/0.5 ML NEBU INH ×6 (02:19→22:38)
[2025-06-09] MEDS: MIDODRINE 5 MG TABLET 15 MG PO ×2 (05:04→21:21)
[2025-06-09 06:31] LABS: Basophils # (Auto) 0.1 Thou/mm3 (0.0-0.2); Basophils % (Auto) 0 % (0-2.5); Eosinophils # (Auto) 0.0 Thou/mm3 (0.0-0.5); Eosinophils % (Auto) 0 % (0-10); Hematocrit 40.3 % (41.0-53.0); Hemoglobin 12.3 g/dL (13.5-16.0); Immature Granulocytes Auto 1.05 Thou/mm3 (0.00-0.00); Lymphocytes # (Auto) 1.0 Thou/mm3 (1.0-4.8); Lymphocytes % (Auto) 6 % (10-50); Mean Corpuscular HGB Conc 30.5 g/dl (31.0-37.0); Mean Corpuscular Hemoglobin 26.4 pg (25.0-35.0); Mean Corpuscular Volume 87 fL (80-100); Monocytes # (Auto) 0.5 Thou/mm3 (0.0-0.8); Monocytes % (Auto) 4 % (0-12); Neutrophils # (Auto) 12.9 Thou/mm3 (1.8-7.7); Neutrophils % (Auto) 83 % (37-80); Nucleated Red Blood Cell # 0.07 Thou/mm3 (0.00-0.00); Nucleated Red Blood Cell % 1 /100 WBC (0); Platelet Count 140 Thou/mm3 (140-440); RDW Standard Deviation 62.9 fL (35.1-43.9); Red Blood Count 4.66 Miln/mm3 (4.50-5.90); White Blood Count 15.5 Thou/mm3 (3.8-10.6)
[2025-06-09 06:51] LABS: Alanine Aminotransferase 99 U/L (10-49); Albumin, Serum 3.3 gm/dL (3.4-4.8); Albumin/Globulin Ratio 0.9 (1.2-2.2); Alkaline Phosphatase 86 U/L (46-116); Anion Gap 13 (7-16); Aspartate Amino Transferase 81 U/L (0-34); BUN/Creatinine Ratio 27 Ratio (12-20); Bilirubin,Total 1.4 mg/dL (0.3-1.2); Blood Urea Nitrogen 32 mg/dL (9-23); Calcium 9.3 mg/dL (8.3-10.6); Calcium (Corrected) 9.9 mg/dL (8.5-10.1); Carbon Dioxide 23.8 mMol/L (20.0-31.0); Chloride 99 mMol/L (98-107); Creatinine (Component) 1.2 mg/dL (0.6-1.3); Estimated Creatinine Clearance 68.6 mL/min (>60); Globulin 3.6 gm/dL (2.3-3.5); Glucose 130 mg/dL (74-106); Magnesium 2.0 mg/dL (1.6-2.6); Osmolality,Calculated 280 (275-295); Potassium 4.4 mMol/L (3.4-5.1); Sodium 136 mMol/L (136-145); Total Protein 6.9 gm/dL (5.7-8.2); eGFR > 60 See Note
[2025-06-09] MEDS: PANTOPRAZOLE 40 MG TABLET PO (08:11)
[2025-06-09] MEDS: NICOTINE PATCH 21 MG/24 HR PATCH.TD24 TOP (08:12)
--- NOTE | 2025-06-09 09:37 | PC.SS ---
Follow up note: SS has spoken to patient's son, Oliverio Yost, phone# [phone] who states pt resides on his own and does not have anybody to help care for him. Son is aware pt provided SS with friend's address where he has been staying. Son is requesting pt dc to SNF. Son also explained pt has a brother, Boy Yost, phone# [phone] who has been visiting pt at bedside. Son state pt is schizophrenic. Pt is currently on high low O2, 35 liters of O2. Pt will have Pleurx drain placed.
--- NOTE | 2025-06-09 09:49 | ESPR_ITS ---
Documentation for date of: 06/09/25 Subjective Subjective Interval history: Patient seen and examined at bedside; no acute events overnight. Patient feeling anxiety, states to be in more anguish, big anxiety and is tachypneic. Knows how to use the spirometer and been using it. \Patient eating and tolerating intake well. States to be pain-free with some shortness of breath. Overnight patient stayed in NSR with occasional PVCs +bigeminy and trigeminy. Kept n.p.o. in anticipation of PleurX catheter placement this morning, which is going to be postponed to tomorrow. Patient was moved out of bed and onto chair where he stayed for half an hour and back to bed, again today. Exam Vital Signs Temp Pulse Resp BP Pulse Ox O2 Del Method O2 Flow Rate 96.9 F 89 28 H 97/79 95 High Flow Nasal Cannula 35 06/09/25 08:00 06/09/25 08:00 06/09/25 08:00 06/09/25 08:00 06/09/25 08:00 06/09/25 08:00 06/09/25 08:00 FiO2 80 06/09/25 08:00 Narrative Exam General: Awake and in no acute distress; alert. moderately anxious, and agitated HEENT: PERRLA. Normocephalic, atraumatic, mucous membranes moist. Heart: Regular rate and rhythm, normal S1 and S2, no murmurs appreciated. Lungs: Decreased breath sounds bilaterally. coarse breathe sounds Rt lower lobe zone. Abdomen: Soft, mildly distended, nontender, positive bowel sounds. No guarding or rebound tenderness. Mild ascites. : Aguilar in place. Large left inguinal mass, no discoloration or tenderness. Neurologic: Alert and oriented x3, no gross neurological deficit, and patient able to move all 4 extremities. Extremities: 2+ pitting edema extending up to knees. Skin: No rash or ecchymoses. Objective Labs 06/09/25 05:10 06/09/25 05:10 Labs: Laboratory Results - last 24 hr 06/09/25 05:10 WBC 15.5 H RBC 4.66 Hgb 12.3 L Hct 40.3 L MCV 87 MCH 26.4 MCHC 30.5 L RDW Std Deviation 62.9 H Plt Count 140 Neut % (Auto) 83 H Lymph % (Auto) 6 L [place] % (Auto) 4 Eos % (Auto) 0 Baso % (Auto) 0 Neut # (Auto) 12.9 H Lymph # (Auto) 1.0 [place] # (Auto) 0.5 Eos # (Auto) 0.0 Baso # (Auto) 0.1 Immature Gran # (Auto) 1.05 H Absolute Nucleated RBC 0.07 H Immature Gran % 7 H Nucleated RBC % 1 H Sodium 136 Potassium 4.4 Chloride 99 Carbon Dioxide 23.8 Anion Gap 13 BUN 32 H Creatinine 1.2 Estim Creat Clear Calc 68.6 eGFR > 60 BUN/Creatinine Ratio 27 H Glucose 130 H Calculated Osmolality 280 Calcium 9.3 Corrected Calcium 9.9 Magnesium 2.0 Total Bilirubin 1.4 H AST 81 H ALT 99 H Alkaline Phosphatase 86 Total Protein 6.9 Albumin 3.3 L Globulin 3.6 H Albumin/Globulin Ratio 0.9 L ABG Interpretation ABG results: 05/29/25 05/31/25 05/31/25 05:33 10:53 17:16 ABG pH 7.38 7.30 L 7.52 H D ABG pCO2 24 L 33 28 L ABG pO2 57 L* 125 H D 50 L* D ABG HCO3 14 L 16 L 23 ABG O2 Saturation 87 L 99 H 88 L ABG Base Excess -9 L -9 L 1 05/31/25 06/01/25 06/03/25 23:51 05:01 20:42 ABG pH 7.49 H 7.53 H 7.54 H ABG pCO2 29 L 27 L 26 L ABG pO2 57 L* 51 L* 60 L ABG HCO3 22 23 22 ABG O2 Saturation 91 88 L 88 L ABG Base Excess 0 1 0 06/04/25 06/06/25 10:17 07:58 ABG pH 7.54 H 7.50 H ABG pCO2 26 L 24 L ABG pO2 55 L* 50 L* ABG HCO3 22 19 L ABG O2 Saturation 91 87 L ABG Base Excess 1 -3 Quality Measures Quality Measures VTE prophylaxis Assessment & Plan Assessment Current Active Medications: Generic Name Dose Route Start Last Admin Trade Name Freq PRN Reason Stop Dose Admin Acetaminophen 325 mg 05/29/25 12:07 06/06/25 09:31 Acetaminophen 325 Mg Tablet PO 06/28/25 12:06 325 mg Q6H PRN Administration Fever >101.5, Pain 1-3 Albuterol/Ipratropium 3 ml 05/29/25 12:07 06/09/25 02:09 Albuterol/Ipratropium (Duoneb) Rt Becky 3 Ml Nebu INH 06/28/25 12:06 3 ml Q2HR PRN Administration SHORTNESS OF BREATH OR WHEEZE Clonazepam 0.25 mg 06/08/25 21:00 06/09/25 08:12 Clonazepam 0.5 Mg Tablet PO 06/13/25 20:59 0.25 mg BID COTY Administration Furosemide 80 mg 06/07/25 09:00 06/07/25 09:16 Furosemide Inj 10 Mg/Ml 4ml Vial IVP 07/07/25 08:59 80 mg On Hold: 06/08/25 08:17 QDAY COTY Administration Ipratropium [place] 0.5 mg 06/04/25 19:00 06/09/25 06:54 Ipratropium Rt 0.5 Mg/ 2.5 Ml Nebu INH 07/04/25 18:59 0.5 mg Q4HRRT COTY Administration Lactulose 30 gm 06/05/25 14:45 06/09/25 05:04 Lactulose Syrup 20 Gm/30 Ml Udc PO 07/05/25 14:44 Not Given TID COTY Protocol Levalbuterol HCl 1.25 mg 06/04/25 19:00 06/09/25 06:54 Levalbuterol Rt 1.25 Mg/0.5 Ml Nebu INH 07/04/25 18:59 1.25 mg Q4HRRT COTY Administration Midodrine 15 mg 06/04/25 10:20 06/09/25 05:04 Midodrine 5 Mg Tablet PO 07/04/25 10:19 15 mg TID COTY Administration Nicotine 21 mg 05/29/25 12:15 06/09/25 08:12 Nicotine Patch 21 Mg/24 Hr Patch.Td24 TOP 06/28/25 12:14 21 mg QDAY COTY Administration Ondansetron HCl 4 mg 05/29/25 12:07 Ondansetron Inj 2 Mg/Ml Inj 2 Ml IVP 06/28/25 12:06 Q6H PRN NAUSEA OR VOMITING Protocol Pantoprazole Sodium 40 mg 06/08/25 09:00 06/09/25 08:11 Pantoprazole 40 Mg Tablet PO 06/28/25 12:14 40 mg QDAY COTY Administration Polyethylene Glycol 17 gm 06/02/25 10:30 06/07/25 11:26 Polyethylene Glycol 17 Gm Packet PO 07/02/25 10:29 Not Given On Hold: 06/08/25 07:16 QDAY COTY Prednisone 40 mg 06/07/25 10:05 06/09/25 08:11 Prednisone 20 Mg Tablet PO 06/14/25 10:05 40 mg QDAY OCTY Administration Sodium Chloride 3 ml 05/31/25 10:52 06/03/25 15:56 Sodium Chloride Rt Becky 0.9% 3 Ml Nebu INH 06/30/25 10:51 3 ml PRN PRN Administration SOLN Spironolactone 50 mg 06/06/25 09:00 06/08/25 08:47 Spironolactone 25 Mg Tablet PO 07/06/25 08:59 50 mg On Hold: 06/08/25 09:59 QDAY COTY Administration Plan Patient is a 64 year old male with past medical history of schizophrenia, COPD on supplemental home oxygen, chronic active smoker greater than 40 pack years, and status post right inguinal hernia repair in 2018 who presented to ED on 05/29/25 for shortness of breath. Patient was admitted telemetry for acute on chronic hypoxic respiratory failure, pleural effusion, pneumonia and pulmonary emboli, upgraded to ICU on 05/31 for worsening acute on chronic respiratory distress. Downgraded back to telemetry as patient has stabilized and tolerating high flow.? #Acute on chronic hypoxic respiratory failure?secondary to likely malignancy, recurrent pleural effusions, bilateral pulmonary emboli and underlying COPD #Right upper lung tumor, Possible malignancy? #Right pleural effusion s/p thoracentesis (05/29, 06/01)? #Recurrent Pleural Effusions, likely parapneumonic - Chronic smoking history as above? 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 -S/p thoracentesis, -750 cc straw colored fluid? -Per lights criteria, fluid is exudative, likely secondary to malignancy? - Pleural fluid culture 05/29 grew Bacillus (likely cereus)? - CT head with and without contrast showed no cranial masses? + recent thoracentesis on 06/01 with 1.2 L drained of straw fluid, Light's criteria positive for exudative effusion.? + Repeat thoracentesis (06/04) : 1.5L of strawberry colored fluid drained from the Rt lung 06/04:?patient had increased work of breathing and respiratory rate was increased. CXR showed fluid?reaccumulation?and bedside US revealed right lung fluid pockets that were easily accessible. 1.5L of fluid was successfully drained from R lung.?FUP CXR showed apical?pnuemothorax.?Fluid re-accumulation most likely secondary to lung mass c/f malignancy pending lung bx? +LDH Pleural:serum 378:229 >.66 (exudative) +Protein pleural:serum 3.3:6.5 >0.5 (exudative) Plan:? -Spoke to IR: Will precede with CT PE protocol for reevaluation of previous PE and have the patient n.p.o. after midnight for PleurX cath and possibly lung bx too -Off of heparin since 06/07 -Ordered PTT and PT/INR with AM labs -Physiotherapist to try and titrate down oxygen requirements in preparation -morning chest x-ray further evaluation to see if lung has expanded. -held lasix 80mg qday and spironolactone 50 due to worsening kidney fx and HoTN?? -encourage incentive spirometry use.?? -Thoracentesis did not reveal any malignant cells.? - Per pathology, atypical?epitheial?cells, but not enough for definitive diagnosis of?maligancy; they suggest biopsy. - Ordered CT lung biopsy per oncology recommendations; on hold at this time due high O2 requirements ? ?? #COPD exacerbation? Likely secondary to pneumonia? - Chronic smoking history? - Presented with shortness of breath requiring 10 L supplemental oxygen at home. Per chart review patient usually uses a liters at home per brother.?? - Used rescue inhaler use for the past 2 weeks prior to admission? - Lactic 9.0, Pro-Antony 1.33, WBC 14 with neutrophil dominance? - CT showed bilateral pneumonia and left upper lobe and right lower lobe? - Treated with azithromycin, Zosyn and Vancomycin (05/29?06/01)? +Patient takes breaths between words and has elevated respiratory rate that?worsens with?Bipap?due to increased anxiety.? ? Treatment:? - Prednisone PO 40mg Qday - IV levofloxacin (06/01- 06/07) completed 8d course, discontinued - Levalbuterol/ipratropium every 6?hoursla? -?DuoNebs?as needed? - Wean oxygen as tolerated? - Midodrine 15 TID to for SBP <90 #YASMIN Creatinine 1.3 ->1.2 elevated above baseline Cr range of .8 - 1.0 eGFR >60, BUN 32, BUN/Cr 24 ->27. prerenal azotemia YASMIN likely 2/2 hypovolemia. ? will hold spirinolactone and lasix - Daily renal panel to trend BUN, Cr, and electrolytes. ?Renally dose meds, avoid overdiuresis, and nephrotoxins. ? #Bilateral pulmonary embolisms? Likely secondary to?hypercoagable?state in setting of malignancy? - Presented with shortness of breath requiring 10 L supplemental oxygen at home.? - CTA showed bilateral pulmonary arterial emboli? - D-dimer elevated?? ? Plan:? -CT angio chest for reevaluation of previous PE -Heparin GTT, on hold while awaiting PleurX catheter placement? -Monitor for bleed? -Cardiology consulted, appreciate recommendations?? #Agitation Patient becoming restless through the course of his prolonged hospital stay -Klonipin 0.25mg bid (reduced from 0.5mg because of lethargy) ? #Cirrhosis? #Transaminitis (improving)? #Hyperbilirubinemia? #Anasarca? -patient consumed moderate amount of alcohol for many years? -Has elevated INR and thrombocytopenia, indicative of chronic pathology? -On exam, mild ascites and anasarca, improved s/p diuresis?? -AST 436 -> 41? - ALT 398 -> 105? Hepatitis panel?non reactive?? ? Plan:? -?HOLD spiranolactone?100 mg daily?decreased to 50mg daily due to hyponatremia and HAGMA - rifaximin 550 mg BID? - Recommend patient follow up outpatient with hepatology/GI? ? #Pneumonia Likely secondary to gram-negative versus gram-positive organisms? #Parapneumonic effusion? - Presented with worsening breathing and increased oxygen requirements. No fevers at home.? - Likely infectious in setting of Bacillus in pleural fluid? - WBC 14 -> 16 -> 15? - Influenza A&B, COVID negative? - UA clean?? - CT showed bilateral pneumonia and left upper lobe and right lower lobe? - Sputum Gram stain showed rare WBCs, 1+ GPC, 1+ GNR? - Pleural fluid culture 05/29 grew Bacillus (likely cereus)? +LDH Pleural:serum 378:229 >.66 (exudative) +Protein pleural:serum 3.3:6.5 >0.5 (exudative) Treatment:? - Discontinued azithromycin, Zosyn and vancomycin? - IV levofloxacin (06/01- 06/07) completed 8d course, discontinued - Monitor a.m. CBC? - Wean oxygen as tolerated? - Follow up repeat pleural studies and cytology?? -?lasix?40?qday? #SURYA? -Hemoglobin 12.4? -Iron studies showed low iron and iron saturation, ferritin and TIBC within normal limits? Treatment:? -No active treatment at this time? -Consider starting on iron once infection cleared? ? ? #History of schizophrenia? #Agitation/Anxiety?? - Per patient, he had been diagnosed years ago by PCP, now retired? - Not on any psych medication? - During rapid, patient was agitated with increased work of breathing, causing him to desaturate to 80%. Wanted to?removed?the BiPAP mask.? Treatment:? - Not currently on any psych medications?? - Hydroxyzine as needed for agitation?? - Follow-up with family or PCP regarding diagnosis? - Avoid overuse of benzodiazepines as may contribute to decreased respiratory drive #SHEREEN, resolved -ordered bicitra 30ml bid- stopped Health maintenance:? Diet: special DVT prophylaxis: Heparin drip? Aguilar: None? Lines: PIV? CODE STATUS: Full This case was discussed with my attending physician, Dr. Sultana, and senior resident, Dr Perez. Even though this this note was carefully revised there may still be minor errors in playback operator due to voice recognition software. Jozef Crisostomo, DO PGY I Senior Resident Attestation: The patient has been lethargic, and wished to get his PleurX catheter as soon as possible. Interventional radiologist recommended to get CTA chest before undergoing PleurX and lung biopsy. Will continue with high flow nasal cannula, and n.p.o. after midnight, likely to get the procedures done tomorrow morning depending on the CTA chest results. Again increased the dose of clonazepam 0.25 to 0.5 mg at night. I discussed with and supervised the regulatory affairs internship physician involved in the care of this patient. I personally saw and examined the patient and discussed the assessment and plan with the entire medicine team, including my attending. I agree with the assessment and plan as documented above. Gerber Perez MD PGY3 Internal Medicine Attending Provider Attestation/Addendum I have discussed and was present for the essential components of the history, physical examination, diagnosis, and treatment plan with the resident. I agree with the patient's care as documented by the resident and amended herein by me. Per Sultana DO. Although this document has been carefully reviewed, there may still be some phonetic and other typographical errors. These errors are purely grammatical due to imperfections in the software program and should not be construed in any way to compromise the substance of the patient's medical care during this visit.
--- NOTE | 2025-06-09 13:52 | XR_ITS ---
Examination: CTA chest with intravenous contrast 2-D reconstructions 3-D reconstructions, vascular Date and time of exam: June 09, 2025, 2030 hours INDICATIONS: Shortness of breath chest pain several days, clinical diagnosis pulmonary emboli CTDI: vol (mGy) 18.8 DLP: (mGycm) 310 Technique: Multiple axial sections of the thorax have been obtained. 3 mm slice thickness, from below the hemidiaphragms to above the apices of the lungs. Mediastinal and lung density settings have been obtained. 2-D sagittal and coronal reconstructions. 3-D angiographic renderings, 3-D volume renderings, 3D post processing, vascular maximum intensity projections obtained. Contrast administered is 100 cc Isovue-370. Low dose protocols were performed. One or more of the following dose reduction techniques were used; automated exposure control, adjustment of the mA and/or KV according to patient size, use of iterative reconstruction technique. Findings: No thoracic aortic aneurysm dilatation or dissection Pulmonary artery segments are not enlarged Small pulmonary artery emboli in right lower lobe pulmonary artery branches for instance axial image 127 Larger pulmonary artery filling defect seen in the left lower lobe pulmonary artery branches Large pulmonary mass right upper lobe Diffuse severe left lung pneumonia Large bilateral pleural effusions Liver irregular in contour, no focal liver lesions No pancreatic mass IMPRESSION: Positive for pulmonary artery emboli as above Large pulmonary mass right upper lobe Diffuse severe pneumonia in the left lung Large bilateral pleural effusions Cirrhosis
[2025-06-09] MEDS: HALOPERIDOL LACT INJ 5 MG/ML VIAL 2.5 MG IV (19:48)
[2025-06-10] VITALS (16 sets, daily range): BP systolic 87–119; BP diastolic 69–90; PULSE 74–93; RESP 12–223; TEMP 36.2–36.5; O2SAT 90–98; BMI 22.3
[2025-06-10] MEDS: IPRATROPIUM RT 0.5 MG/ 2.5 ML NEBU INH ×6 (03:25→22:12)
[2025-06-10] MEDS: LEVALBUTEROL RT 1.25 MG/0.5 ML NEBU INH ×6 (03:25→22:12)
[2025-06-10] MEDS: MIDODRINE 5 MG TABLET 15 MG PO (05:09)
[2025-06-10 05:49] LABS: INR 1.3 (0.9-1.3); Partial Thromboplastin Time 27.4 Seconds (22.0-36.0); Prothrombin Time 13.4 Seconds (9.0-12.2)
[2025-06-10 05:53] LABS: Basophils # (Auto) 0.1 Thou/mm3 (0.0-0.2); Basophils % (Auto) 0 % (0-2.5); Eosinophils # (Auto) 0.0 Thou/mm3 (0.0-0.5); Eosinophils % (Auto) 0 % (0-10); Hematocrit 38.3 % (41.0-53.0); Hemoglobin 11.6 g/dL (13.5-16.0); Immature Granulocytes Auto 1.30 Thou/mm3 (0.00-0.00); Lymphocytes # (Auto) 1.0 Thou/mm3 (1.0-4.8); Lymphocytes % (Auto) 6 % (10-50); Mean Corpuscular HGB Conc 30.3 g/dl (31.0-37.0); Mean Corpuscular Hemoglobin 26.1 pg (25.0-35.0); Mean Corpuscular Volume 86 fL (80-100); Monocytes # (Auto) 1.0 Thou/mm3 (0.0-0.8); Monocytes % (Auto) 6 % (0-12); Neutrophils # (Auto) 14.4 Thou/mm3 (1.8-7.7); Neutrophils % (Auto) 81 % (37-80); Nucleated Red Blood Cell # 0.09 Thou/mm3 (0.00-0.00); Nucleated Red Blood Cell % 1 /100 WBC (0); Platelet Count 141 Thou/mm3 (140-440); RDW Standard Deviation 62.4 fL (35.1-43.9); Red Blood Count 4.45 Miln/mm3 (4.50-5.90); White Blood Count 17.8 Thou/mm3 (3.8-10.6)
[2025-06-10 06:02] LABS: Alanine Aminotransferase 81 U/L (10-49); Albumin, Serum 3.2 gm/dL (3.4-4.8); Albumin/Globulin Ratio 0.9 (1.2-2.2); Alkaline Phosphatase 75 U/L (46-116); Anion Gap 13 (7-16); Aspartate Amino Transferase 52 U/L (0-34); BUN/Creatinine Ratio 28 Ratio (12-20); Bilirubin,Total 1.1 mg/dL (0.3-1.2); Blood Urea Nitrogen 31 mg/dL (9-23); Calcium 9.4 mg/dL (8.3-10.6); Calcium (Corrected) 10.0 mg/dL (8.5-10.1); Carbon Dioxide 21.6 mMol/L (20.0-31.0); Chloride 100 mMol/L (98-107); Creatinine (Component) 1.1 mg/dL (0.6-1.3); Estimated Creatinine Clearance 73.6 mL/min (>60); Globulin 3.6 gm/dL (2.3-3.5); Glucose 122 mg/dL (74-106); Magnesium 2.2 mg/dL (1.6-2.6); Osmolality,Calculated 277 (275-295); Potassium 4.6 mMol/L (3.4-5.1); Sodium 135 mMol/L (136-145); Total Protein 6.8 gm/dL (5.7-8.2); eGFR > 60 See Note
[2025-06-10] MEDS: NICOTINE PATCH 21 MG/24 HR PATCH.TD24 TOP (09:30)
[2025-06-10] MEDS: PANTOPRAZOLE 40 MG TABLET PO (09:30)
--- NOTE | 2025-06-10 11:41 | PC.SS ---
Follow up note: On high flow O2, 35 liters. Continue to wean down O2. Pt is possible d/c to SNF.
--- NOTE | 2025-06-10 11:55 | PC.NURSE ---
Recvd orders for Lung biopsy and drain. Revwd case with Dr. Lopez. Per he is recommending bilateral Thoracentesis and Not a lung biopsy. Made Narcisa WILSON aware of recommendations.
--- NOTE | 2025-06-10 14:35 | ESPR_ITS ---
Documentation for date of: 06/10/25 Subjective Subjective Interval history: Patient seen and examined at bedside; no acute events overnight. Patient was feeling anxiety overnight. Knows how to use the spirometer and been using it. Has been kept n.p.o. in anticipation of PleurX cath placement today, which is postponed to tomorrow. States to be pain-free with some shortness of breath. Overnight patient stayed in NSR with occasional PVCs +bigeminy and trigeminy. Exam Vital Signs Temp Pulse Resp BP Pulse Ox O2 Del Method O2 Flow Rate 97.6 F 74 19 98/71 94 L BiPAP 35 06/10/25 12:00 06/10/25 12:00 06/10/25 12:00 06/10/25 12:00 06/10/25 12:00 06/10/25 12:00 06/10/25 04:00 FiO2 70 06/10/25 11:02 Narrative Exam General: Awake and in no acute distress; alert. moderately anxious, and agitated HEENT: PERRLA. Normocephalic, atraumatic, mucous membranes moist. Heart: Regular rate and rhythm, normal S1 and S2, no murmurs appreciated. Lungs: Decreased breath sounds bilaterally. coarse breathe sounds Rt lower lobe zone. Abdomen: Soft, mildly distended, nontender, positive bowel sounds. No guarding or rebound tenderness. Mild ascites. : Aguilar in place. Large left inguinal mass, no discoloration or tenderness. Neurologic: Alert and oriented x3, no gross neurological deficit, and patient able to move all 4 extremities. Extremities: 2+ pitting edema extending up to knees. Skin: No rash or ecchymoses. Objective Labs 06/10/25 04:45 06/10/25 04:45 Labs: Laboratory Results - last 24 hr 06/10/25 04:45 WBC 17.8 H RBC 4.45 L Hgb 11.6 L Hct 38.3 L MCV 86 MCH 26.1 MCHC 30.3 L RDW Std Deviation 62.4 H Plt Count 141 Neut % (Auto) 81 H Lymph % (Auto) 6 L Monroe % (Auto) 6 Eos % (Auto) 0 Baso % (Auto) 0 Neut # (Auto) 14.4 H Lymph # (Auto) 1.0 Monroe # (Auto) 1.0 H Eos # (Auto) 0.0 Baso # (Auto) 0.1 Immature Gran # (Auto) 1.30 H Absolute Nucleated RBC 0.09 H Immature Gran % 7 H Nucleated RBC % 1 H PT 13.4 H INR 1.3 APTT 27.4 Sodium 135 L Potassium 4.6 Chloride 100 Carbon Dioxide 21.6 Anion Gap 13 BUN 31 H Creatinine 1.1 Estim Creat Clear Calc 73.6 eGFR > 60 BUN/Creatinine Ratio 28 H Glucose 122 H Calculated Osmolality 277 Calcium 9.4 Corrected Calcium 10.0 Magnesium 2.2 Total Bilirubin 1.1 AST 52 H ALT 81 H Alkaline Phosphatase 75 Total Protein 6.8 Albumin 3.2 L Globulin 3.6 H Albumin/Globulin Ratio 0.9 L ABG Interpretation ABG results: 05/29/25 05/31/25 05/31/25 05:33 10:53 17:16 ABG pH 7.38 7.30 L 7.52 H D ABG pCO2 24 L 33 28 L ABG pO2 57 L* 125 H D 50 L* D ABG HCO3 14 L 16 L 23 ABG O2 Saturation 87 L 99 H 88 L ABG Base Excess -9 L -9 L 1 05/31/25 06/01/25 06/03/25 23:51 05:01 20:42 ABG pH 7.49 H 7.53 H 7.54 H ABG pCO2 29 L 27 L 26 L ABG pO2 57 L* 51 L* 60 L ABG HCO3 22 23 22 ABG O2 Saturation 91 88 L 88 L ABG Base Excess 0 1 0 06/04/25 06/06/25 10:17 07:58 ABG pH 7.54 H 7.50 H ABG pCO2 26 L 24 L ABG pO2 55 L* 50 L* ABG HCO3 22 19 L ABG O2 Saturation 91 87 L ABG Base Excess 1 -3 Quality Measures Quality Measures VTE prophylaxis Assessment & Plan Assessment Current Active Medications: Generic Name Dose Route Start Last Admin Trade Name Freq PRN Reason Stop Dose Admin Acetaminophen 325 mg 05/29/25 12:07 06/06/25 09:31 Acetaminophen 325 Mg Tablet PO 06/28/25 12:06 325 mg Q6H PRN Administration Fever >101.5, Pain 1-3 Albuterol/Ipratropium 3 ml 05/29/25 12:07 06/09/25 02:09 Albuterol/Ipratropium (Duoneb) Rt Becky 3 Ml Nebu INH 06/28/25 12:06 3 ml Q2HR PRN Administration SHORTNESS OF BREATH OR WHEEZE Clonazepam 0.5 mg 06/09/25 21:00 06/09/25 21:21 Clonazepam 0.5 Mg Tablet PO 06/14/25 20:59 0.5 mg QPM COTY Administration Clonazepam 0.25 mg 06/10/25 09:00 06/10/25 09:30 Clonazepam 0.5 Mg Tablet PO 06/15/25 08:59 0.25 mg QAM COTY Administration Haloperidol Lactate 2.5 mg 06/10/25 07:52 Haloperidol Lact Inj 5 Mg/Ml Vial IV 06/15/25 07:51 X1 PRN Give before procedure Protocol Ipratropium [place] 0.5 mg 06/04/25 19:00 06/10/25 11:01 Ipratropium Rt 0.5 Mg/ 2.5 Ml Nebu INH 07/04/25 18:59 0.5 mg Q4HRRT COTY Administration Lactulose 30 gm 06/05/25 14:45 06/10/25 05:10 Lactulose Syrup 20 Gm/30 Ml Udc PO 07/05/25 14:44 Not Given TID COTY Protocol Levalbuterol HCl 1.25 mg 06/04/25 19:00 06/10/25 11:01 Levalbuterol Rt 1.25 Mg/0.5 Ml Nebu INH 07/04/25 18:59 1.25 mg Q4HRRT COTY Administration Midodrine 15 mg 06/04/25 10:20 06/10/25 05:09 Midodrine 5 Mg Tablet PO 07/04/25 10:19 15 mg TID COTY Administration Nicotine 21 mg 05/29/25 12:15 06/10/25 09:30 Nicotine Patch 21 Mg/24 Hr Patch.Td24 TOP 06/28/25 12:14 21 mg QDAY COTY Administration Ondansetron HCl 4 mg 05/29/25 12:07 Ondansetron Inj 2 Mg/Ml Inj 2 Ml IVP 06/28/25 12:06 Q6H PRN NAUSEA OR VOMITING Protocol Pantoprazole Sodium 40 mg 06/08/25 09:00 06/10/25 09:30 Pantoprazole 40 Mg Tablet PO 06/28/25 12:14 40 mg QDAY COTY Administration Prednisone 40 mg 06/07/25 10:05 06/10/25 09:30 Prednisone 20 Mg Tablet PO 06/14/25 10:05 40 mg QDAY COTY Administration Sodium Chloride 3 ml 05/31/25 10:52 06/03/25 15:56 Sodium Chloride Rt Becky 0.9% 3 Ml Nebu INH 06/30/25 10:51 3 ml PRN PRN Administration SOLN Plan Patient is a 64 year old male with past medical history of schizophrenia, COPD on supplemental home oxygen, chronic active smoker greater than 40 pack years, and status post right inguinal hernia repair in 2018 who presented to ED on 05/29/25 for shortness of breath. Patient was admitted telemetry for acute on chronic hypoxic respiratory failure, pleural effusion, pneumonia and pulmonary emboli, upgraded to ICU on 05/31 for worsening acute on chronic respiratory distress. Downgraded back to telemetry as patient has stabilized and tolerating high flow.? #Acute on chronic hypoxic respiratory failure?secondary to likely malignancy, recurrent pleural effusions, bilateral pulmonary emboli and underlying COPD #Right upper lung tumor, Possible malignancy? #Right pleural effusion s/p thoracentesis (05/29, 06/01)? #Recurrent Pleural Effusions, likely parapneumonic - Chronic smoking history as above? 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 -S/p thoracentesis, -750 cc straw colored fluid? -Per lights criteria, fluid is exudative, likely secondary to malignancy? - Pleural fluid culture 05/29 grew Bacillus (likely cereus)? - CT head with and without contrast showed no cranial masses? + recent thoracentesis on 06/01 with 1.2 L drained of straw fluid, Light's criteria positive for exudative effusion.? + Repeat thoracentesis (06/04) : 1.5L of strawberry colored fluid drained from the Rt lung 06/04:?patient had increased work of breathing and respiratory rate was increased. CXR showed fluid?reaccumulation?and bedside US revealed right lung fluid pockets that were easily accessible. 1.5L of fluid was successfully drained from R lung.?FUP CXR showed apical?pnuemothorax.?Fluid re-accumulation most likely secondary to lung mass c/f malignancy pending lung bx? +LDH Pleural:serum 378:229 >.66 (exudative) +Protein pleural:serum 3.3:6.5 >0.5 (exudative) 06/09: CTA shows pulmonary artery emboli in RLL arterial branches and filling defect in LLL branches. Large pulmonary mass in RUL. Lt lung pneumonia. Large b/l pleural effusions. Cirrhosis. PT 13.4 and INR 1.3, APTT 27.4. Plan:? -Spoke to IR: will proceed with b/l PleurX cath placement tomorrow. NPO after midnight. -Off of heparin since 06/07 -Physiotherapist to try and titrate down oxygen requirements in preparation -morning chest x-ray further evaluation to see if lung has expanded. -held lasix 80mg qday and spironolactone 50 due to worsening kidney fx and HoTN?? -encourage incentive spirometry use.?? -Thoracentesis did not reveal any malignant cells.? - Per pathology, atypical?epitheial?cells, but not enough for definitive diagnosis of?maligancy; they suggest biopsy. - Ordered CT lung biopsy per oncology recommendations; on hold at this time due high O2 requirements ? ?? #COPD exacerbation? Likely secondary to pneumonia? - Chronic smoking history? - Presented with shortness of breath requiring 10 L supplemental oxygen at home. Per chart review patient usually uses a liters at home per brother.?? - Used rescue inhaler use for the past 2 weeks prior to admission? - Lactic 9.0, Pro-Antony 1.33, WBC 14 with neutrophil dominance? - CT showed bilateral pneumonia and left upper lobe and right lower lobe? - Treated with azithromycin, Zosyn and Vancomycin (05/29?06/01)? +Patient takes breaths between words and has elevated respiratory rate that?worsens with?Bipap?due to increased anxiety.? ? Treatment:? - Prednisone PO 40mg Qday - IV levofloxacin (06/01- 06/07) completed 8d course, discontinued - Levalbuterol/ipratropium every 6?hoursla? -?DuoNebs?as needed? - Wean oxygen as tolerated? - Midodrine 15 TID to for SBP <90 #YASMIN, improving Creatinine 1.3 ->1.2 ->1.1 at baseline Cr range of .8 - 1.0 eGFR >60, BUN 32, BUN/Cr 24 ->27. prerenal azotemia YASMIN likely 2/2 hypovolemia. ? will hold spirinolactone and lasix - Daily renal panel to trend BUN, Cr, and electrolytes. ?Renally dose meds, avoid overdiuresis, and nephrotoxins. ? #Bilateral pulmonary embolisms? Likely secondary to?hypercoagable?state in setting of malignancy? - Presented with shortness of breath requiring 10 L supplemental oxygen at home.? - CTA showed bilateral pulmonary arterial emboli? - D-dimer elevated?? ? Plan:? -CT angio chest for reevaluation of previous PE -Heparin GTT, on hold while awaiting PleurX catheter placement? -Monitor for bleed? -Cardiology consulted, appreciate recommendations?? #Agitation Patient becoming restless through the course of his prolonged hospital stay -Klonipin 0.25mg bid (reduced from 0.5mg because of lethargy) ? #Cirrhosis? #Transaminitis (improving)? #Hyperbilirubinemia? #Anasarca? -patient consumed moderate amount of alcohol for many years? -Has elevated INR and thrombocytopenia, indicative of chronic pathology? -On exam, mild ascites and anasarca, improved s/p diuresis?? -AST 436 -> 41? - ALT 398 -> 105? Hepatitis panel?non reactive?? ? Plan:? -?HOLD spiranolactone?100 mg daily?decreased to 50mg daily due to hyponatremia and HAGMA - rifaximin 550 mg BID? - Recommend patient follow up outpatient with hepatology/GI? ? #Pneumonia Likely secondary to gram-negative versus gram-positive organisms? #Parapneumonic effusion? - Presented with worsening breathing and increased oxygen requirements. No fevers at home.? - Likely infectious in setting of Bacillus in pleural fluid? - WBC 14 -> 16 -> 15? - Influenza A&B, COVID negative? - UA clean?? - CT showed bilateral pneumonia and left upper lobe and right lower lobe? - Sputum Gram stain showed rare WBCs, 1+ GPC, 1+ GNR? - Pleural fluid culture 05/29 grew Bacillus (likely cereus)? +LDH Pleural:serum 378:229 >.66 (exudative) +Protein pleural:serum 3.3:6.5 >0.5 (exudative) Treatment:? - Discontinued azithromycin, Zosyn and vancomycin? - IV levofloxacin (06/01- 06/07) completed 8d course, discontinued - Monitor a.m. CBC? - Wean oxygen as tolerated? - Follow up repeat pleural studies and cytology?? -?lasix?40?qday? #SURYA? -Hemoglobin 12.4? -Iron studies showed low iron and iron saturation, ferritin and TIBC within normal limits? Treatment:? -No active treatment at this time? -Consider starting on iron once infection cleared? ? ? #History of schizophrenia? #Agitation/Anxiety?? - Per patient, he had been diagnosed years ago by PCP, now retired? - Not on any psych medication? - During rapid, patient was agitated with increased work of breathing, causing him to desaturate to 80%. Wanted to?removed?the BiPAP mask.? Treatment:? - Not currently on any psych medications?? - Hydroxyzine as needed for agitation?? - Follow-up with family or PCP regarding diagnosis? - Avoid overuse of benzodiazepines as may contribute to decreased respiratory drive #SHEREEN, resolved -ordered bicitra 30ml bid- stopped Health maintenance:? Diet: cardiac DVT prophylaxis: Heparin drip?on hold Aguilar: None? Lines: PIV? CODE STATUS: Full This case was discussed with my attending physician, Dr. Fowler, and senior resident, Dr Perez. Even though this this note was carefully revised there may still be minor errors in muck boss due to voice recognition software. Jozef Crisostomo, DO PGY I Senior Resident Attestation: The patient continues to be on high flow nasal cannula, and was planned to get PleurX. However, curbside consultation was done with application infrastructure engineer Dr. Nickerson, and after reviewing the chart he recommended not to proceed with PleurX, instead do serial thoracocentesis until the etiology of the pleural effusion is clear. We will continue with current medical management and will get thoracocentesis done tomorrow morning. I discussed with and supervised the pharmacist intern physician involved in the care of this patient. I personally saw and examined the patient and discussed the assessment and plan with the entire medicine team, including my attending. I agree with the assessment and plan as documented above. Gerber Perez MD PGY3 Internal Medicine Attending Provider Attestation/Addendum 64-year-old male patient with respiratory failure found to have lung tumor and pulmonary embolism. Pending PleurX catheter placement and lung biopsy. Patient stays on high flow. Continue current treatment. I discussed with and supervised the resident physician who took care of this patient. I agree with the assessment and plan as above.
[2025-06-11] VITALS (22 sets, daily range): BP systolic 86–100; BP diastolic 66–81; PULSE 81–99; RESP 12–34; TEMP 36.2–36.9; O2SAT 88–99; BMI 21.4
--- NOTE | 2025-06-11 | XR_ITS ---
EXAMINATION: AP chest single view TECHNIQUE: Portable semiupright portable chest single view Date and time: January 09, 2025, 1217 hours, comparison June 05, 2025 INDICATIONS: Chest pain this week FINDINGS: Severe diffuse left lung opacity again noted Large pulmonary mass right upper lobe again identified More prominent parenchymal disease right base, consider aspiration pneumonia Mild enlargement cardiac contour with vascular congestion IMPRESSION: Severe diffuse pneumonia ARDS left lung again noted Large pulmonary mass right upper lobe again identified More prominent parenchymal disease right base, consider aspiration pneumonia
[2025-06-11] MEDS: MIDODRINE 5 MG TABLET 15 MG PO ×3 (01:38→21:37)
[2025-06-11] MEDS: LEVALBUTEROL RT 1.25 MG/0.5 ML NEBU INH ×6 (02:40→23:28)
[2025-06-11] MEDS: IPRATROPIUM RT 0.5 MG/ 2.5 ML NEBU INH ×6 (02:40→23:28)
--- NOTE | 2025-06-11 05:00 | XR_ITS ---
EXAM: Ultrasound-guided bilateral thoracentesis INDICATION: Pleural effusion effusions. DATE: 06/11/2025, 10:59 a.m. PROCEDURE: After discussion of risks and benefits informed consent was obtained. Patient was placed in the sitting position in bed. Preliminary ultrasound evaluation demonstrated prominent bilateral pleural effusions. These were targeted for thoracentesis.The skin overlying the lower right posterior pleural space was cleaned and draped in normal sterile surgical fashion. 10 cc of 1% lidocaine was used for local anesthesia. Using ultrasound guidance a 5 [place] Yueh needle catheter was sequentially advanced into the right pleural space. Clear pleural fluid was obtained. A 5 [place] Yueh was attached to bottle suction. 1500 mL of fluid were removed. Flow ceased through the catheter. The catheter was removed. Hemostasis was achieved with direct pressure. The access site was covered with a sterile dressing. There were no immediate complications. The skin overlying the lower left posterior pleural space was cleaned and draped in normal sterile surgical fashion. 10 cc of 1% lidocaine was used for local anesthesia. Using ultrasound guidance a 5 [place] Yueh needle catheter was sequentially advanced into the right pleural space. Clear pleural fluid was obtained. A 5 [place] Yueh was attached to bottle suction. 1000 mL of fluid were removed. Flow ceased through the catheter. The catheter was removed. Hemostasis was achieved with direct pressure. The access site was covered with a sterile dressing. There were no immediate complications. IMPRESSION: Bilateral thoracenteses as described above.
[2025-06-11 06:38] LABS: Basophils # (Auto) 0.2 Thou/mm3 (0.0-0.2); Basophils % (Auto) 1 % (0-2.5); Eosinophils # (Auto) 0.1 Thou/mm3 (0.0-0.5); Eosinophils % (Auto) 0 % (0-10); Hematocrit 43.4 % (41.0-53.0); Hemoglobin 13.1 g/dL (13.5-16.0); Immature Granulocytes Auto 1.56 Thou/mm3 (0.00-0.00); Lymphocytes # (Auto) 2.5 Thou/mm3 (1.0-4.8); Lymphocytes % (Auto) 10 % (10-50); Mean Corpuscular HGB Conc 30.2 g/dl (31.0-37.0); Mean Corpuscular Hemoglobin 25.8 pg (25.0-35.0); Mean Corpuscular Volume 85 fL (80-100); Monocytes # (Auto) 0.8 Thou/mm3 (0.0-0.8); Monocytes % (Auto) 3 % (0-12); Neutrophils # (Auto) 19.3 Thou/mm3 (1.8-7.7); Neutrophils % (Auto) 80 % (37-80); Nucleated Red Blood Cell # 0.08 Thou/mm3 (0.00-0.00); Nucleated Red Blood Cell % 0 /100 WBC (0); Platelet Count 122 Thou/mm3 (140-440); RDW Standard Deviation 64.7 fL (35.1-43.9); Red Blood Count 5.08 Miln/mm3 (4.50-5.90); White Blood Count 24.3 Thou/mm3 (3.8-10.6)
[2025-06-11 07:15] LABS: Alanine Aminotransferase 69 U/L (10-49); Albumin, Serum 3.5 gm/dL (3.4-4.8); Albumin/Globulin Ratio 1.0 (1.2-2.2); Alkaline Phosphatase 82 U/L (46-116); Anion Gap 15 (7-16); Aspartate Amino Transferase 68 U/L (0-34); BUN/Creatinine Ratio 25 Ratio (12-20); Bilirubin,Total 1.2 mg/dL (0.3-1.2); Blood Urea Nitrogen 27 mg/dL (9-23); Calcium 9.3 mg/dL (8.3-10.6); Calcium (Corrected) 9.7 mg/dL (8.5-10.1); Carbon Dioxide 21.6 mMol/L (20.0-31.0); Chloride 98 mMol/L (98-107); Creatinine (Component) 1.1 mg/dL (0.6-1.3); Estimated Creatinine Clearance 70.9 mL/min (>60); Globulin 3.5 gm/dL (2.3-3.5); Glucose 119 mg/dL (74-106); Magnesium 2.4 mg/dL (1.6-2.6); Osmolality,Calculated 276 (275-295); Potassium 4.9 mMol/L (3.4-5.1); Sodium 135 mMol/L (136-145); Total Protein 7.0 gm/dL (5.7-8.2); eGFR > 60 See Note
[2025-06-11] MEDS: NICOTINE PATCH 21 MG/24 HR PATCH.TD24 TOP (09:01)
[2025-06-11] MEDS: PANTOPRAZOLE 40 MG TABLET PO (09:02)
--- NOTE | 2025-06-11 09:13 | PC.SS ---
Follow up note: High flow O2, 40 liters. Bipap at night. Thoracentesis today. Pt is d/c to SNF once under 5 liters O2.
--- NOTE | 2025-06-11 11:56 | PD.RESPRO ---
Documentation for date of: 06/11/25 Subjective Subjective Interval history: Patient seen and examined at bedside; no acute events overnight. Patient was informed of the ultrasound-guided thoracentesis today and impatiently looking forward to it. Knows how to use the spirometer and been using it. Has been kept n.p.o. in anticipation of thoracentesis today. States to be pain-free with some shortness of breath. Overnight patient stayed in NSR with occasional PVCs +bigeminy and trigeminy. Exam Vital Signs Temp Pulse Resp BP Pulse Ox O2 Del Method O2 Flow Rate 97.2 F 90 22 H 92/70 90 L High Flow Nasal Cannula 40 06/11/25 08:00 06/11/25 10:05 06/11/25 10:05 06/11/25 08:00 06/11/25 10:05 06/11/25 08:00 06/11/25 10:05 FiO2 85 06/11/25 10:05 Narrative Exam General: Awake and in no acute distress; alert. moderately anxious, and agitated HEENT: PERRLA. Normocephalic, atraumatic, mucous membranes moist. Heart: Regular rate and rhythm, normal S1 and S2, no murmurs appreciated. Lungs: Decreased breath sounds bilaterally. coarse breathe sounds Rt lower lobe zone. Present pleuritic chest pain. Abdomen: Soft, mildly distended, nontender, positive bowel sounds. No guarding or rebound tenderness. Mild ascites. : Aguilar in place. Large left inguinal mass, no discoloration or tenderness. Neurologic: Alert and oriented x3, no gross neurological deficit, and patient able to move all 4 extremities. Extremities: 2+ pitting edema extending up to knees. Skin: No rash or ecchymoses. Objective Labs 06/12/25 05:31 06/12/25 05:31 Labs: Laboratory Results - last 24 hr 06/11/25 05:33 WBC 24.3 H D RBC 5.08 Hgb 13.1 L Hct 43.4 MCV 85 MCH 25.8 MCHC 30.2 L RDW Std Deviation 64.7 H Plt Count 122 L Neut % (Auto) 80 Lymph % (Auto) 10 Montgomery % (Auto) 3 Eos % (Auto) 0 Baso % (Auto) 1 Neut # (Auto) 19.3 H Lymph # (Auto) 2.5 Montgomery # (Auto) 0.8 Eos # (Auto) 0.1 Baso # (Auto) 0.2 Immature Gran # (Auto) 1.56 H Absolute Nucleated RBC 0.08 H Immature Gran % 6 H Nucleated RBC % 0 Sodium 135 L Potassium 4.9 Chloride 98 Carbon Dioxide 21.6 Anion Gap 15 BUN 27 H Creatinine 1.1 Estim Creat Clear Calc 70.9 eGFR > 60 BUN/Creatinine Ratio 25 H Glucose 119 H Calculated Osmolality 276 Calcium 9.3 Corrected Calcium 9.7 Magnesium 2.4 Total Bilirubin 1.2 AST 68 H ALT 69 H Alkaline Phosphatase 82 Total Protein 7.0 Albumin 3.5 Globulin 3.5 Albumin/Globulin Ratio 1.0 L ABG Interpretation ABG results: 05/29/25 05/31/25 05/31/25 05:33 10:53 17:16 ABG pH 7.38 7.30 L 7.52 H D ABG pCO2 24 L 33 28 L ABG pO2 57 L* 125 H D 50 L* D ABG HCO3 14 L 16 L 23 ABG O2 Saturation 87 L 99 H 88 L ABG Base Excess -9 L -9 L 1 05/31/25 06/01/25 06/03/25 23:51 05:01 20:42 ABG pH 7.49 H 7.53 H 7.54 H ABG pCO2 29 L 27 L 26 L ABG pO2 57 L* 51 L* 60 L ABG HCO3 22 23 22 ABG O2 Saturation 91 88 L 88 L ABG Base Excess 0 1 0 06/04/25 06/06/25 10:17 07:58 ABG pH 7.54 H 7.50 H ABG pCO2 26 L 24 L ABG pO2 55 L* 50 L* ABG HCO3 22 19 L ABG O2 Saturation 91 87 L ABG Base Excess 1 -3 Quality Measures Quality Measures VTE prophylaxis Assessment & Plan Assessment Current Active Medications: Generic Name Dose Route Start Last Admin Trade Name Freq PRN Reason Stop Dose Admin Acetaminophen 325 mg 05/29/25 12:07 06/06/25 09:31 Acetaminophen 325 Mg Tablet PO 06/28/25 12:06 325 mg Q6H PRN Administration Fever >101.5, Pain 1-3 Albuterol/Ipratropium 3 ml 05/29/25 12:07 06/09/25 02:09 Albuterol/Ipratropium (Duoneb) Rt Becky 3 Ml Nebu INH 06/28/25 12:06 3 ml Q2HR PRN Administration SHORTNESS OF BREATH OR WHEEZE Clonazepam 0.5 mg 06/09/25 21:00 06/10/25 20:58 Clonazepam 0.5 Mg Tablet PO 06/14/25 20:59 0.5 mg QPM COTY Administration Clonazepam 0.25 mg 06/10/25 09:00 06/11/25 09:01 Clonazepam 0.5 Mg Tablet PO 06/15/25 08:59 0.25 mg QAM COTY Administration Furosemide 40 mg 06/11/25 10:35 Furosemide Inj 10 Mg/Ml 4ml Vial IVP 07/11/25 10:34 QDAY COTY Haloperidol Lactate 2.5 mg 06/10/25 07:52 Haloperidol Lact Inj 5 Mg/Ml Vial IV 06/15/25 07:51 X1 PRN Give before procedure Protocol Ipratropium [place] 0.5 mg 06/04/25 19:00 06/11/25 10:13 Ipratropium Rt 0.5 Mg/ 2.5 Ml Nebu INH 07/04/25 18:59 0.5 mg Q4HRRT COTY Administration Lactulose 30 gm 06/05/25 14:45 06/11/25 05:46 Lactulose Syrup 20 Gm/30 Ml Udc PO 07/05/25 14:44 Not Given TID COTY Protocol Levalbuterol HCl 1.25 mg 06/04/25 19:00 06/11/25 10:13 Levalbuterol Rt 1.25 Mg/0.5 Ml Nebu INH 07/04/25 18:59 1.25 mg Q4HRRT COTY Administration Midodrine 15 mg 06/04/25 10:20 06/11/25 05:45 Midodrine 5 Mg Tablet PO 07/04/25 10:19 Not Given TID COTY Nicotine 21 mg 05/29/25 12:15 06/11/25 09:01 Nicotine Patch 21 Mg/24 Hr Patch.Td24 TOP 06/28/25 12:14 21 mg QDAY COTY Administration Ondansetron HCl 4 mg 05/29/25 12:07 Ondansetron Inj 2 Mg/Ml Inj 2 Ml IVP 06/28/25 12:06 Q6H PRN NAUSEA OR VOMITING Protocol Pantoprazole Sodium 40 mg 06/08/25 09:00 06/11/25 09:02 Pantoprazole 40 Mg Tablet PO 06/28/25 12:14 40 mg QDAY COTY Administration Sodium Chloride 3 ml 05/31/25 10:52 06/03/25 15:56 Sodium Chloride Rt Becky 0.9% 3 Ml Nebu INH 06/30/25 10:51 3 ml PRN PRN Administration SOLN Spironolactone 25 mg 06/11/25 10:35 Spironolactone 25 Mg Tablet PO 07/11/25 10:34 BID COTY Plan Patient is a 64 year old male with past medical history of schizophrenia, COPD on supplemental home oxygen, chronic active smoker greater than 40 pack years, and status post right inguinal hernia repair in 2018 who presented to ED on 05/29/25 for shortness of breath. Patient was admitted telemetry for acute on chronic hypoxic respiratory failure, pleural effusion, pneumonia and pulmonary emboli, upgraded to ICU on 05/31 for worsening acute on chronic respiratory distress. Downgraded back to telemetry as patient has stabilized and tolerating high flow.? #Acute on chronic hypoxic respiratory failure?secondary to likely malignancy, recurrent pleural effusions, bilateral pulmonary emboli and underlying COPD #Right middle lobe consolidation, Possible malignancy? #Right pleural effusion s/p thoracentesis (05/29, 06/01)? #Recurrent Pleural Effusions, likely parapneumonic - Chronic smoking history as above? 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 -S/p thoracentesis, -750 cc straw colored fluid? -Per lights criteria, fluid is exudative, likely secondary to malignancy? - Pleural fluid culture 05/29 grew Bacillus (likely cereus)? - CT head with and without contrast showed no cranial masses? + recent thoracentesis on 06/01 with 1.2 L drained of straw fluid, Light's criteria positive for exudative effusion.? + Repeat thoracentesis (06/04) : 1.5L of strawberry colored fluid drained from the Rt lung 06/04:?patient had increased work of breathing and respiratory rate was increased. CXR showed fluid?reaccumulation?and bedside US revealed right lung fluid pockets that were easily accessible. 1.5L of fluid was successfully drained from R lung.?FUP CXR showed apical?pnuemothorax.?Fluid re-accumulation most likely secondary to lung mass c/f malignancy pending lung bx? +LDH Pleural:serum 378:229 >.66 (exudative) +Protein pleural:serum 3.3:6.5 >0.5 (exudative) 06/09: CTA shows pulmonary artery emboli in RLL arterial branches and filling defect in LLL branches. Large pulmonary mass in RUL. Lt lung pneumonia. Large b/l pleural effusions. Cirrhosis. PT 13.4 and INR 1.3, APTT 27.4. 06/10: Review of the CTA by IR pointed out to air bronchograms, inconsistent with lung tumor. Cytology results from latest thoracentesis also showed very few atypical epithelial cells, not enough to rule cancer in definitively. Plan:? -s/p US guided b/l thoracentesis with removal of 1.5L from the Rt lung and .5L from the Lt. -Started on Lasix IV 5mg/h gtt -Off of heparin since 06/07 -Physiotherapist to try and titrate down oxygen requirements in preparation -morning chest x-ray further evaluation to see if lung has expanded. -repeat CT scan of lungs in 6mo to monitor for evolution of the Rt middle lobe consolidation -held lasix 80mg qday and spironolactone 50 due to worsening kidney fx and HoTN?? -encourage incentive spirometry use.?? - Per pathology, atypical?epitheial?cells, but not enough for definitive diagnosis of?maligancy; they suggest biopsy. - Ordered CT lung biopsy per oncology recommendations; on hold at this time due high O2 requirements ? ?? #COPD exacerbation? Likely secondary to pneumonia? - Chronic smoking history? - Presented with shortness of breath requiring 10 L supplemental oxygen at home. Per chart review patient usually uses a liters at home per brother.?? - Used rescue inhaler use for the past 2 weeks prior to admission? - Lactic 9.0, Pro-Antony 1.33, WBC 14 with neutrophil dominance? - CT showed bilateral pneumonia and left upper lobe and right lower lobe? - Treated with azithromycin, Zosyn and Vancomycin (05/29?06/01)? +Patient takes breaths between words and has elevated respiratory rate that?worsens with?Bipap?due to increased anxiety.? ? Treatment:? - Prednisone PO 40mg Qday (completed 5d course 06/07 -04/2025) - IV levofloxacin (06/01- 06/07) completed 8d course, discontinued - Levalbuterol/ipratropium every 6?hoursla? -?DuoNebs?as needed? - Wean oxygen as tolerated? - Midodrine 15 TID to for SBP <90 ? #Bilateral pulmonary embolisms? Likely secondary to?hypercoagable?state in setting of malignancy? - Presented with shortness of breath requiring 10 L supplemental oxygen at home.? - CTA showed bilateral pulmonary arterial emboli? - D-dimer elevated?? ? Plan:? -CT angio chest for reevaluation of previous PE -Heparin GTT, on hold while awaiting PleurX catheter placement? -Monitor for bleed? -Cardiology consulted, appreciate recommendations?? #Agitation Patient becoming restless through the course of his prolonged hospital stay -Klonipin 0.25mg QAM and 0.5mg QPM ? #Cirrhosis? #Transaminitis (improving)? #Hyperbilirubinemia? #Anasarca? -patient consumed moderate amount of alcohol for many years? -Has elevated INR and thrombocytopenia, indicative of chronic pathology? -On exam, mild ascites and anasarca, improved s/p diuresis?? -AST 436 -> 41? - ALT 398 -> 105? Hepatitis panel?non reactive?? ? Plan:? -?HOLD spiranolactone?100 mg daily?decreased to 50mg daily due to hyponatremia and HAGMA - rifaximin 550 mg BID? - Recommend patient follow up outpatient with hepatology/GI? #YASMIN, resolved Creatinine 1.3 ->1.2 ->1.1 at baseline Cr range of .8 - 1.0 eGFR >60, BUN 32, BUN/Cr 24 ->27. prerenal azotemia YASMIN likely 2/2 hypovolemia. ? will hold spirinolactone and lasix - Daily renal panel to trend BUN, Cr, and electrolytes. ?Renally dose meds, avoid overdiuresis, and nephrotoxins. ? #Pneumonia Likely secondary to gram-negative versus gram-positive organisms?(completed treatment for) #Parapneumonic effusion? - Presented with worsening breathing and increased oxygen requirements. No fevers at home.? - Likely infectious in setting of Bacillus in pleural fluid? - WBC 14 -> 16 -> 15? - Influenza A&B, COVID negative? - UA clean?? - CT showed bilateral pneumonia and left upper lobe and right lower lobe? - Sputum Gram stain showed rare WBCs, 1+ GPC, 1+ GNR? - Pleural fluid culture 05/29 grew Bacillus (likely cereus)? +LDH Pleural:serum 378:229 >.66 (exudative) +Protein pleural:serum 3.3:6.5 >0.5 (exudative) Treatment:? - Discontinued azithromycin, Zosyn and vancomycin? - IV levofloxacin (06/01- 06/07) completed 8d course, discontinued - Monitor a.m. CBC? - Wean oxygen as tolerated? - Follow up repeat pleural studies and cytology?? -?lasix?40?qday? #SURYA? -Hemoglobin 12.4? -Iron studies showed low iron and iron saturation, ferritin and TIBC within normal limits? Treatment:? -No active treatment at this time? -Consider starting on iron once infection cleared? ? ? #History of schizophrenia? #Agitation/Anxiety?? - Per patient, he had been diagnosed years ago by PCP, now retired? - Not on any psych medication? - During rapid, patient was agitated with increased work of breathing, causing him to desaturate to 80%. Wanted to?removed?the BiPAP mask.? Treatment:? - Not currently on any psych medications?? - Hydroxyzine as needed for agitation?? - Follow-up with family or PCP regarding diagnosis? - Avoid overuse of benzodiazepines as may contribute to decreased respiratory drive #HAGMA, resolved -ordered bicitra 30ml bid- stopped Health maintenance:? Diet: cardiac DVT prophylaxis: Heparin drip?on hold Aguilar: None? Lines: PIV? CODE STATUS: Full This case was discussed with my attending physician, Dr. Gamino, and senior resident, Dr Perez. Even though this this note was carefully revised there may still be minor errors in precision farming specialist due to voice recognition software. Jozef Crisostomo, DO PGY I Senior Resident Attestation: The patient underwent bilateral thoracocentesis, with 1.5 L of pleuritic fluid from right and 0.5 L from chest. The patient's exam requirement improved much after the procedure. Will continue with high flow nasal cannula, prednisone, and will resume heparin drip for PE. We will consult Sewer Maintenance Supervisor Dr. Cuello tomorrow morning. I discussed with and supervised the art gallery internship physician involved in the care of this patient. I personally saw and examined the patient and discussed the assessment and plan with the entire medicine team, including my attending. I agree with the assessment and plan as documented above. Gerber Perez MD PGY3 Internal Medicine Attending Provider Attestation/Addendum I reviewed labs, imaging, EKG, home medications and prior available records. Face to face evaluation was performed by me. I have personally examined the patient and discussed assessment and plan with the IM team. I reviewed the resident note and agree with the plan with exceptions as below. Acute hypoxic respiratory failure Acute pulmonary embolism COPD exacerbation Left lower lobe pneumonia Suspect right upper lobe lung mass Bilateral pleural effusion, status post bilateral pleurocentesis Acute hypotension Liver cirrhosis Leukocytosis Transaminitis Continue heparin drip Started Lasix drip Completed a course of IV antibiotics Complete 5 days of corticosteroids. Continue nebulizing treatments Status post bilateral pleurocentesis Outpatient follow-up for lung biopsy Monitor BP. Careful diuresis in the setting of acute hypotension Monitor LFTs: Downtrending Monitor
[2025-06-11 12:29] LABS: Pleural Fluid WBC 4211 /cmm
[2025-06-11] MEDS: ACETAMINOPHEN 325 MG TABLET PO (12:40)
[2025-06-11 12:48] LABS: Amylase,Pleural Fluid < 20 IU/L; Glucose,Pleural Fluid 103 mg/dL; LDH,Pleural Fluid 170 IU/L; Protein Total,Pleural Fluid 2.3 g/dL
[2025-06-11 12:52] LABS: Pleural Fluid Appearance Hazy; Pleural Fluid Color Yellow; Pleural Fluid Mononuclear 18 %; Pleural Fluid Polynuclear 82 %; Pleural Fluid RBC 1000 /cmm
[2025-06-11] MEDS: LACTULOSE SYRUP 20 GM/30 ML UDC 30 GM PO (13:40)
--- NOTE | 2025-06-11 13:49 | PC.NURSE ---
aaron.thoracentesis done @ bedside @ [id number],pt. tolerated procedure well.dressing to R and L.mid back dry and intact.1500 ml was removed from R.side.900 ml was removed from L. side.high anna down to 30/50L.o2 sat 95 %.
[2025-06-11] MEDS: FUROSEMIDE INJ 200 MG in SODIUM CHLORIDE 0.9% 80 ML IV (16:55)
[2025-06-11] MEDS: SODIUM CHLORIDE RT SOL 0.9% 3 ML NEBU INH ×2 (18:23→23:28)
[2025-06-11 18:36] LABS: Partial Thromboplastin Time 27.3 Seconds (22.0-36.0)
[2025-06-11] MEDS: Heparin/D5w 25K 250 ML Ivpb 25,000 UNIT/250 ML BAG 12.957 UNIT IV (19:38)
[2025-06-11] MEDS: HEPARIN SOD INJ 5000 UNIT/ML VIAL 5750 UNIT IV (19:38)
[2025-06-11] MEDS: ALBUTEROL/IPRATROPIUM (Duoneb) RT SOL 3 ML NEBU INH (21:07)
[2025-06-12] VITALS (19 sets, daily range): BP systolic 70–97; BP diastolic 50–72; PULSE 77–92; RESP 12–37; TEMP 36.1–37; O2SAT 92–98; BMI 21.7
[2025-06-12 02:15] LABS: Partial Thromboplastin Time 55.4 Seconds (22.0-36.0)
[2025-06-12] MEDS: LEVALBUTEROL RT 1.25 MG/0.5 ML NEBU INH ×6 (02:33→23:06)
[2025-06-12] MEDS: IPRATROPIUM RT 0.5 MG/ 2.5 ML NEBU INH ×6 (02:33→23:06)
[2025-06-12] MEDS: SODIUM CHLORIDE RT SOL 0.9% 3 ML NEBU INH (02:33)
[2025-06-12] MEDS: LACTULOSE SYRUP 20 GM/30 ML UDC 30 GM PO (06:02)
[2025-06-12 06:11] LABS: Basophils # (Auto) 0.0 Thou/mm3 (0.0-0.2); Basophils % (Auto) 0 % (0-2.5); Eosinophils # (Auto) 0.0 Thou/mm3 (0.0-0.5); Eosinophils % (Auto) 0 % (0-10); Hematocrit 42.0 % (41.0-53.0); Hemoglobin 12.8 g/dL (13.5-16.0); Immature Granulocytes Auto 1.44 Thou/mm3 (0.00-0.00); Lymphocytes # (Auto) 0.8 Thou/mm3 (1.0-4.8); Lymphocytes % (Auto) 3 % (10-50); Mean Corpuscular HGB Conc 30.5 g/dl (31.0-37.0); Mean Corpuscular Hemoglobin 26.4 pg (25.0-35.0); Mean Corpuscular Volume 87 fL (80-100); Monocytes # (Auto) 0.8 Thou/mm3 (0.0-0.8); Monocytes % (Auto) 3 % (0-12); Neutrophils # (Auto) 19.1 Thou/mm3 (1.8-7.7); Neutrophils % (Auto) 87 % (37-80); Nucleated Red Blood Cell # 0.06 Thou/mm3 (0.00-0.00); Nucleated Red Blood Cell % 0 /100 WBC (0); Platelet Count 105 Thou/mm3 (140-440); RDW Standard Deviation 63.1 fL (35.1-43.9); Red Blood Count 4.85 Miln/mm3 (4.50-5.90); White Blood Count 22.1 Thou/mm3 (3.8-10.6)
[2025-06-12 06:48] LABS: Alanine Aminotransferase 55 U/L (10-49); Albumin, Serum 3.3 gm/dL (3.4-4.8); Albumin/Globulin Ratio 0.9 (1.2-2.2); Alkaline Phosphatase 84 U/L (46-116); Anion Gap 17 (7-16); Aspartate Amino Transferase 36 U/L (0-34); BUN/Creatinine Ratio 21 Ratio (12-20); Bilirubin,Total 1.5 mg/dL (0.3-1.2); Blood Urea Nitrogen 25 mg/dL (9-23); Calcium 9.0 mg/dL (8.3-10.6); Calcium (Corrected) 9.6 mg/dL (8.5-10.1); Carbon Dioxide 23.5 mMol/L (20.0-31.0); Chloride 96 mMol/L (98-107); Creatinine (Component) 1.2 mg/dL (0.6-1.3); Estimated Creatinine Clearance 65.6 mL/min (>60); Globulin 3.6 gm/dL (2.3-3.5); Glucose 133 mg/dL (74-106); Magnesium 2.0 mg/dL (1.6-2.6); Osmolality,Calculated 278 (275-295); Potassium 3.6 mMol/L (3.4-5.1); Sodium 136 mMol/L (136-145); Total Protein 6.9 gm/dL (5.7-8.2); eGFR > 60 See Note
[2025-06-12] MEDS: NICOTINE PATCH 21 MG/24 HR PATCH.TD24 TOP (08:57)
[2025-06-12] MEDS: PANTOPRAZOLE 40 MG TABLET PO (08:57)
[2025-06-12] MEDS: SPIRONOLACTONE 25 MG TABLET PO (09:02)
--- NOTE | 2025-06-12 09:36 | PC.SS ---
Addendum entered by Delphine Montesinos 06/12/25 13:23: SS received call from Mary Hurley from [facility] who explained they reviewed inquiry and can accept pt once he is off high flow O2 for 24 hours and under 5 liters of O2. Original Note: SS has sent inquiry to the local SNF. Pt is currently on high flow O2, 25 liters 45% FIO2. [facility] and [facility] from [facility]. [facility], [facility], and [facility] have declined. [facility] has not responded. Per Gale from [facility], pt will require last 2 days of PT notes day before dc and insurance authorization can be submitted closer to dc and O2 under 4 liters.. Per Shena at [facility], insurance authorization can be obtained closer to dc and insurance authorization is only good for 7 days.
[2025-06-12 09:56] LABS: Partial Thromboplastin Time 43.6 Seconds (22.0-36.0)
[2025-06-12] MEDS: ALBUMIN HUMAN-KJDA 25% IVPB 25 GM/100 ML BTL IV ×2 (11:00→17:22)
--- NOTE | 2025-06-12 11:03 | PD.RESEVENT ---
Documentation for date of: 06/12/25 Event Note Event Note: Rapid response was called at 10:50 AM for BP 74/50. on PE, patient CTAB, heart RRR, 2+ BLE edema noted. Patient had recieved thoracentesis with removal of total 2L transudative effusions yesterday. He had been kept on Lasix gtt for recurrent pleural effusions needing thoracentesis three times during the current stay. Patient lethargic, yet arousable and responsive to questions addressed to him. Held lasix 5mg/h gtt. Given albumin 25g x1 and a repeat dose scheduled for 8h later. BP improved to 84/59, remainder of vitals WNL on HFNC 25L, 45%. This case was discussed with my attending physician, Dr. Gamino, and senior resident, Dr Perez. Even though this this note was carefully revised there may still be minor errors in manager cardiac cath due to voice recognition software. Jozef Crisostomo, DO PGY I
[2025-06-12] MEDS: HEPARIN SOD INJ 5000 UNIT/ML VIAL 3000 UNIT IVP (11:15)
--- NOTE | 2025-06-12 11:55 | PD.RESPRO ---
Documentation for date of: 06/12/25 Subjective Subjective Interval history: Patient seen and examined at bedside; no acute events overnight. Overnight patient stayed in NSR with occasional PVCs +bigeminy and trigeminy. Rapid response was called at 10:50 AM for BP 74/50. on PE, patient CTAB, heart RRR, 2+ BLE edema noted. Patient had recieved thoracentesis with removal of total 2L transudative effusions yesterday. He had been kept on Lasix gtt for recurrent pleural effusions needing thoracentesis three times during the current stay. Patient lethargic, yet arousable and responsive to questions addressed to him. Held lasix 5mg/h gtt. Given albumin 25g x1 and a repeat dose scheduled for 8h later. BP improved to 84/59, remainder of vitals WNL on HFNC 25L, 45%. Exam Vital Signs Temp Pulse Resp BP Pulse Ox O2 Del Method O2 Flow Rate 97.0 F 90 20 97/67 93 L High Flow Nasal Cannula 25 06/12/25 08:00 06/12/25 10:19 06/12/25 10:19 06/12/25 09:02 06/12/25 10:19 06/12/25 08:00 06/12/25 10:19 FiO2 45 06/12/25 10:19 Narrative Exam General: Awake and in no acute distress; alert. moderately anxious, and agitated HEENT: PERRLA. Normocephalic, atraumatic, mucous membranes moist. Heart: Regular rate and rhythm, normal S1 and S2, no murmurs appreciated. Lungs: Improved and clearer lung sounds b/l. coarse breathe sounds Rt lower lobe zone. Present pleuritic chest pain. Abdomen: Soft, mildly distended, nontender, positive bowel sounds. No guarding or rebound tenderness. Mild ascites. : Aguilar in place. Large left inguinal mass, no discoloration or tenderness. Neurologic: Alert and oriented x3, no gross neurological deficit, and patient able to move all 4 extremities. Extremities: 2+ pitting edema extending up to knees. Skin: No rash or ecchymoses. Objective Labs 06/12/25 05:31 06/12/25 05:31 Labs: Laboratory Results - last 24 hr 06/11/25 06/11/25 06/12/25 11:12 18:11 01:28 WBC RBC Hgb Hct MCV MCH MCHC RDW Std Deviation Plt Count Neut % (Auto) Lymph % (Auto) [place] % (Auto) Eos % (Auto) Baso % (Auto) Neut # (Auto) Lymph # (Auto) [place] # (Auto) Eos # (Auto) Baso # (Auto) Immature Gran # (Auto) Absolute Nucleated RBC Immature Gran % Nucleated RBC % APTT 27.3 55.4 H D Sodium Potassium Chloride Carbon Dioxide Anion Gap BUN Creatinine Estim Creat Clear Calc eGFR BUN/Creatinine Ratio Glucose Calculated Osmolality Calcium Corrected Calcium Magnesium Total Bilirubin AST ALT Alkaline Phosphatase Total Protein Albumin Globulin Albumin/Globulin Ratio Pleural Color Yellow Pleural Appearance Hazy Pleural WBC 4211 Pleural RBC 1000 Pleural Polynuclear WBC 82 Pleural Mononuclear WBC 18 Pleural Total Protein 2.3 Pleural LDH 170 Pleural Glucose 103 Pleural Amylase < 20 06/12/25 06/12/25 05:31 08:15 WBC 22.1 H RBC 4.85 Hgb 12.8 L Hct 42.0 MCV 87 MCH 26.4 MCHC 30.5 L RDW Std Deviation 63.1 H Plt Count 105 L Neut % (Auto) 87 H Lymph % (Auto) [address] [place] % (Auto) 3 Eos % (Auto) 0 Baso % (Auto) 0 Neut # (Auto) 19.1 H Lymph # (Auto) 0.[address] [place] # (Auto) 0.8 Eos # (Auto) 0.0 Baso # (Auto) 0.0 Immature Gran # (Auto) 1.44 H Absolute Nucleated RBC 0.06 H Immature Gran % 7 H Nucleated RBC % 0 APTT 43.6 H D Sodium 136 Potassium 3.6 D Chloride 96 L Carbon Dioxide 23.5 Anion Gap 17 H BUN 25 H Creatinine 1.2 Estim Creat Clear Calc 65.6 eGFR > 60 BUN/Creatinine Ratio 21 H Glucose 133 H Calculated Osmolality 278 Calcium 9.0 Corrected Calcium 9.6 Magnesium 2.0 Total Bilirubin 1.5 H AST 36 H ALT 55 H Alkaline Phosphatase 84 Total Protein 6.9 Albumin 3.3 L Globulin 3.6 H Albumin/Globulin Ratio 0.9 L Pleural Color Pleural Appearance Pleural WBC Pleural RBC Pleural Polynuclear WBC Pleural Mononuclear WBC Pleural Total Protein Pleural LDH Pleural Glucose Pleural Amylase ABG Interpretation ABG results: 05/29/25 05/31/25 05/31/25 05:33 10:53 17:16 ABG pH 7.38 7.30 L 7.52 H D ABG pCO2 24 L 33 28 L ABG pO2 57 L* 125 H D 50 L* D ABG HCO3 14 L 16 L 23 ABG O2 Saturation 87 L 99 H 88 L ABG Base Excess -9 L -9 L 1 05/31/25 06/01/25 06/03/25 23:51 05:01 20:42 ABG pH 7.49 H 7.53 H 7.54 H ABG pCO2 29 L 27 L 26 L ABG pO2 57 L* 51 L* 60 L ABG HCO3 22 23 22 ABG O2 Saturation 91 88 L 88 L ABG Base Excess 0 1 0 06/04/25 06/06/25 10:17 07:58 ABG pH 7.54 H 7.50 H ABG pCO2 26 L 24 L ABG pO2 55 L* 50 L* ABG HCO3 22 19 L ABG O2 Saturation 91 87 L ABG Base Excess 1 -3 Quality Measures Quality Measures VTE prophylaxis Assessment & Plan Assessment Current Active Medications: Generic Name Dose Route Start Last Admin Trade Name Freq PRN Reason Stop Dose Admin Acetaminophen 325 mg 05/29/25 12:07 06/11/25 12:40 Acetaminophen 325 Mg Tablet PO 06/28/25 12:06 325 mg Q6H PRN Administration Fever >101.5, Pain 1-3 Albuterol/Ipratropium 3 ml 05/29/25 12:07 06/11/25 21:07 Albuterol/Ipratropium (Duoneb) Rt Becky 3 Ml Nebu INH 06/28/25 12:06 3 ml Q2HR PRN Administration SHORTNESS OF BREATH OR WHEEZE Clonazepam 0.5 mg 06/09/25 21:00 06/11/25 20:13 Clonazepam 0.5 Mg Tablet PO 06/14/25 20:59 0.5 mg On Hold: 06/12/25 10:52 QPM COTY Administration Clonazepam 0.25 mg 06/10/25 09:00 06/12/25 08:56 Clonazepam 0.5 Mg Tablet PO 06/15/25 08:59 0.25 mg On Hold: 06/12/25 10:52 QAM COTY Administration Haloperidol Lactate 2.5 mg 06/10/25 07:52 Haloperidol Lact Inj 5 Mg/Ml Vial IV X1 PRN Give before procedure Protocol Furosemide 200 mg/ Sodium 100 mls @ 5 mls/hr 06/11/25 15:39 06/12/25 09:50 Chloride IV 07/11/25 15:38 0 mls/hr On Hold: 06/12/25 10:52 .Q20H COTY Infusion Heparin Sodium/Dextrose 25,000 unit in 250 mls @ 12.957 mls/hr 06/11/25 17:45 06/12/25 11:16 Heparin In D5w Ivpb IV 06/25/25 17:44 20 units/kg/hr .[id number] COTY 14.397 mls/hr Protocol Titration 18 UNITS/KG/HR Albumin Human 25 gm in 100 mls @ 100 mls/hr 06/12/25 16:00 Albuminex 25% Ivpb IV 06/12/25 16:59 X1 ONE Ipratropium [place] 0.5 mg 06/04/25 19:00 06/12/25 10:18 Ipratropium Rt 0.5 Mg/ 2.5 Ml Nebu INH 07/04/25 18:59 0.5 mg Q4HRRT COTY Administration Lactulose 200 gm 06/12/25 11:15 Lactulose Syrup 10 Gm/15 Ml ME 07/12/25 11:14 On Hold: 06/12/25 11:45 Q4HR COTY Protocol Lactulose 40 gm 06/12/25 14:00 Lactulose Syrup 20 Gm/30 Ml Udc PO 07/12/25 13:59 TID COTY Protocol Levalbuterol HCl 1.25 mg 06/04/25 19:00 06/12/25 10:18 Levalbuterol Rt 1.25 Mg/0.5 Ml Nebu INH 07/04/25 18:59 1.25 mg Q4HRRT COTY Administration Midodrine 15 mg 06/04/25 10:20 06/12/25 05:30 Midodrine 5 Mg Tablet PO 07/04/25 10:19 Not Given TID COTY Nicotine 21 mg 05/29/25 12:15 06/12/25 08:57 Nicotine Patch 21 Mg/24 Hr Patch.Td24 TOP 06/28/25 12:14 21 mg QDAY COTY Administration Ondansetron HCl 4 mg 05/29/25 12:07 Ondansetron Inj 2 Mg/Ml Inj 2 Ml IVP 06/28/25 12:06 Q6H PRN NAUSEA OR VOMITING Protocol Pantoprazole Sodium 40 mg 06/08/25 09:00 06/12/25 08:57 Pantoprazole 40 Mg Tablet PO 06/28/25 12:14 40 mg QDAY COTY Administration Sodium Chloride 3 ml 05/31/25 10:52 06/12/25 02:33 Sodium Chloride Rt Becky 0.9% 3 Ml Nebu INH 06/30/25 10:51 3 ml PRN PRN Administration SOLN Spironolactone 25 mg 06/11/25 10:35 06/12/25 09:02 Spironolactone 25 Mg Tablet PO 07/11/25 10:34 25 mg BID COTY Administration Plan Patient is a 64 year old male with past medical history of schizophrenia, COPD on supplemental home oxygen, chronic active smoker greater than 40 pack years, and status post right inguinal hernia repair in 2018 who presented to ED on 05/29/25 for shortness of breath. Patient was admitted telemetry for acute on chronic hypoxic respiratory failure, pleural effusion, pneumonia and pulmonary emboli, upgraded to ICU on 05/31 for worsening acute on chronic respiratory distress. Downgraded back to telemetry as patient has stabilized and tolerating high flow.? #Acute on chronic hypoxic respiratory failure?secondary to likely malignancy, recurrent pleural effusions, bilateral pulmonary emboli and underlying COPD #Right middle lobe consolidation, Possible malignancy? #Right pleural effusion s/p thoracentesis (05/29, 06/01)? #Recurrent Pleural Effusions, likely parapneumonic - Chronic smoking history as above? 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 -S/p thoracentesis, -750 cc straw colored fluid? -Per lights criteria, fluid is exudative, likely secondary to malignancy? - Pleural fluid culture 05/29 grew Bacillus (likely cereus)? - CT head with and without contrast showed no cranial masses? + recent thoracentesis on 06/01 with 1.2 L drained of straw fluid, Light's criteria positive for exudative effusion.? + Repeat thoracentesis (06/04) : 1.5L of strawberry colored fluid drained from the Rt lung 06/04:?patient had increased work of breathing and respiratory rate was increased. CXR showed fluid?reaccumulation?and bedside US revealed right lung fluid pockets that were easily accessible. 1.5L of fluid was successfully drained from R lung.?FUP CXR showed apical?pnuemothorax.?Fluid re-accumulation most likely secondary to lung mass c/f malignancy pending lung bx? +LDH Pleural:serum 378:229 >.66 (exudative) +Protein pleural:serum 3.3:6.5 >0.5 (exudative) 06/09: CTA shows pulmonary artery emboli in RLL arterial branches and filling defect in LLL branches. Large pulmonary mass in RUL. Lt lung pneumonia. Large b/l pleural effusions. Cirrhosis. PT 13.4 and INR 1.3, APTT 27.4. 06/10: Review of the CTA by IR pointed out to air bronchograms, inconsistent with lung tumor. Cytology results from latest thoracentesis also showed very few atypical epithelial cells, not enough to rule cancer in definitively. 06/11: s/p US guided b/l thoracentesis with removal of 1.5L from the Rt lung and .5L from the Lt. Plan:? -Albumen 25g -two doses given 6h apart -Held Lasix IV 5mg/h iso HoTN -Physiotherapist to try and titrate down oxygen requirements in preparation -morning chest x-ray further evaluation to see if lung has expanded. -repeat CT scan of lungs in 6mo to monitor for evolution of the Rt middle lobe consolidation -held lasix 80mg qday and spironolactone 50 due to worsening kidney fx and HoTN?? -encourage incentive spirometry use.?? - Per pathology, atypical?epitheial?cells, but not enough for definitive diagnosis of?maligancy; they suggest biopsy. - Ordered CT lung biopsy per oncology recommendations; on hold at this time due high O2 requirements #Bilateral pulmonary embolisms? Likely secondary to?hypercoagable?state in setting of malignancy? - Presented with shortness of breath requiring 10 L supplemental oxygen at home.? - CTA showed bilateral pulmonary arterial emboli? - D-dimer elevated?? ? Plan:? -CT angio chest for reevaluation of previous PE -Heparin GTT based on PE protocol? -Monitor for bleed? -Cardiology consulted, appreciate recommendations?? #Cirrhosis? #Transaminitis (improving)? #Hyperbilirubinemia? #Anasarca? -patient consumed moderate amount of alcohol for many years? -Has elevated INR and thrombocytopenia, indicative of chronic pathology? -On exam, mild ascites and anasarca, improved s/p diuresis?? -AST 436 -> 41? - ALT 398 -> 105? Hepatitis panel?non reactive?? ? Plan:? - Lactulose PO 40g TID -?HOLD spiranolactone?100 mg daily?decreased to 50mg daily due to hyponatremia and HAGMA - rifaximin 550 mg BID? - Recommend patient follow up outpatient with hepatology/GI? - Midodrine 15 TID to for SBP <90?? #COPD exacerbation? Likely secondary to pneumonia? - Chronic smoking history? - Presented with shortness of breath requiring 10 L supplemental oxygen at home. Per chart review patient usually uses a liters at home per brother.?? - Used rescue inhaler use for the past 2 weeks prior to admission? - Lactic 9.0, Pro-Antony 1.33, WBC 14 with neutrophil dominance? - CT showed bilateral pneumonia and left upper lobe and right lower lobe? - Treated with azithromycin, Zosyn and Vancomycin (05/29?06/01)? +Patient takes breaths between words and has elevated respiratory rate that?worsens with?Bipap?due to increased anxiety.? ? Treatment:? - Prednisone PO 40mg Qday (completed 5d course 06/07 -04/2025) - IV levofloxacin (06/01- 06/07) completed 8d course, discontinued - Levalbuterol/ipratropium every 6?hoursla? -?DuoNebs?as needed? - Wean oxygen as tolerated? - Midodrine 15 TID to for SBP <90 ? #Agitation Patient becoming restless through the course of his prolonged hospital stay -HOLD Klonipin 0.25mg QAM and 0.5mg QPM iso lethargy. #YASMIN, resolved Creatinine 1.3 ->1.2 ->1.1 at baseline Cr range of .8 - 1.0 eGFR >60, BUN 32, BUN/Cr 24 ->27. prerenal azotemia YASMIN likely 2/2 hypovolemia. ? will hold spirinolactone and lasix - Daily renal panel to trend BUN, Cr, and electrolytes. ? Renally dose meds, avoid overdiuresis, and nephrotoxins. ? #Pneumonia Likely secondary to gram-negative versus gram-positive organisms?(completed treatment for) #Parapneumonic effusion? - Presented with worsening breathing and increased oxygen requirements. No fevers at home.? - Likely infectious in setting of Bacillus in pleural fluid? - WBC 14 -> 16 -> 15? - Influenza A&B, COVID negative? - UA clean?? - CT showed bilateral pneumonia and left upper lobe and right lower lobe? - Sputum Gram stain showed rare WBCs, 1+ GPC, 1+ GNR? - Pleural fluid culture 05/29 grew Bacillus (likely cereus)? +LDH Pleural:serum 378:229 >.66 (exudative) +Protein pleural:serum 3.3:6.5 >0.5 (exudative) Treatment:? - Discontinued azithromycin, Zosyn and vancomycin? - IV levofloxacin (06/01- 06/07) completed 8d course, discontinued - Monitor a.m. CBC? - Wean oxygen as tolerated? - Follow up repeat pleural studies and cytology?? -?lasix?40?qday? #SURYA? -Hemoglobin 12.4? -Iron studies showed low iron and iron saturation, ferritin and TIBC within normal limits? Treatment:? -No active treatment at this time? -Consider starting on iron once infection cleared? ? ? #History of schizophrenia? #Agitation/Anxiety?? - Per patient, he had been diagnosed years ago by PCP, now retired? - Not on any psych medication? - During rapid, patient was agitated with increased work of breathing, causing him to desaturate to 80%. Wanted to?removed?the BiPAP mask.? Treatment:? - Not currently on any psych medications?? - Hydroxyzine as needed for agitation?? - Follow-up with family or PCP regarding diagnosis? - Avoid overuse of benzodiazepines as may contribute to decreased respiratory drive #HAGMA, resolved -ordered bicitra 30ml bid- stopped Health maintenance:? Diet: cardiac DVT prophylaxis: Heparin drip?on hold Aguilar: None? Lines: PIV? CODE STATUS: Full This case was discussed with my attending physician, Dr. Gamino, and senior resident, Dr Perez. Even though this this note was carefully revised there may still be minor errors in lambskin trimmer due to voice recognition software. Jozef Crisostomo, DO PGY I Senior Resident Attestation: The patient oxygen requirement has gone down significantly after Bumex drip and receiving bilateral thoracocentesis yesterday. Pleural fluid this time was transudative, suggestive of resolving infection after pneumonia. However, this morning, rapid response was called for MAP less than 65. The patient was given albumin 25 g IV x 2, and his MAP has been just above 65. We will continue with midodrine 15 mg 3 times daily, and at the patient did not had bowel movement for past 3 days, he is lactulose dose was increased to 40 mg 3 times daily. We will hold off on diuresis and spironolactone at this time. Pulmonology consultation was done with lead burner helper Dr. Cuello, who recommended continuing with adequate diuresis, and thoracocentesis only if the patient's condition or respiratory status worsens due to extensive pleural effusion. According to him, the pleural effusion is likely multifactorial in the setting of recent infection, pulmonary embolism, and there could also be possibility of carcinoma given the extensive history of smoking. I discussed with and supervised the internet specialist physician involved in the care of this patient. I personally saw and examined the patient and discussed the assessment and plan with the entire medicine team, including my attending. I agree with the assessment and plan as documented above. Gerber Perez MD PGY3 Internal Medicine Attending Provider Attestation/Addendum I reviewed labs, imaging, EKG, home medications and prior available records. Face to face evaluation was performed by me. I have personally examined the patient and discussed assessment and plan with the IM team. I reviewed the resident note and agree with the plan with exceptions as below. Acute hypoxic respiratory failure Acute pulmonary embolism COPD exacerbation Left lower lobe pneumonia Suspect right upper lobe lung mass Bilateral pleural effusion, status post bilateral pleurocentesis Acute hypotension Liver cirrhosis Leukocytosis Transaminitis Continue heparin drip Started Lasix drip: Had to hold in the setting of acute hypotension for which rapid response was called on 06/12. See event note Gave IV albumin Completed a course of IV antibiotics Completed 5 days of corticosteroids. Continue nebulizing treatments Status post bilateral pleurocentesis Outpatient follow-up for lung biopsy Monitor BP. Careful diuresis in the setting of acute hypotension Monitor LFTs: Downtrending Monitor WBC: Downtrending
[2025-06-12 12:07] LABS: Ammonia 19 uMol/L (11-32)
--- NOTE | 2025-06-12 12:23 | ESHP_ITS ---
Documentation for date of: 06/12/25 [facility] Pulmonology History of Present Illness History of present illness: Mr. Jennifer Hooks is a 64-year-old male with a history of cirrhosis and COPD. Pulmonary medicine consultation was requested due to recurring bilateral pleural effusions and abnormal CT scan of the chest. The patient is reportedly a previous chronic alcoholic with a history of cirrhosis although he denies a history of alcoholism. CT imaging of the CT abdomen and pelvis is consistent with cirrhosis. The patient has had at least 4 thoracentesis dated May 29, June 01, June 04 and June 11. All 4 have been on the right side with rapid reaccumulation. A left sided thoracentesis was performed on June 11. The fluid analysis is consistent with an exudate. The patient is a poor historian. He recalls that he may have had a paracentesis done in the past. 2 weeks prior to admission he reports discolored nasal discharge and a mild cough. He reports improving shortness of breath post thoracenteses. He denies a past history of cancer but he endorses weight loss. No hemoptysis Review of Systems Review of Systems Narrative Review of Systems: Limited due to the patient's being a poor historian but no current nausea vomiting abdominal pain sinus pain pressure fever chills or bleeding Past Medical History Social History SOCIAL: Active smoker greater than 40 pack years alcohol abuse methamphetamine abuse reportedly homeless Past Medical History Comments PMH COMMENT: History of COPD schizophrenia inguinal hernia repair tonsillectomy Meds Home Medications and Allergies Home Medications ?Medication ?Instructions ?Recorded ?Confirmed ?Type No Known Home Medications 03/02/1805/04 History Allergies Allergy/AdvReac Type Severity Reaction Status Date / Time No Known Allergies Allergy Unverified 03/06/18 10:09 Exam Vital Signs Temp Pulse Resp BP Pulse Ox O2 Del Method O2 Flow Rate 97.0 F 90 20 97/67 93 L High Flow Nasal Cannula 06/12/25 08:00 06/12/25 10:19 06/12/25 10:19 06/12/25 09:02 06/12/25 10:19 06/12/25 08:00 06/12/25 10:19 FiO2 45 06/12/25 10:19 Narrative Exam GENERAL: Patient appears to be older than stated age, frail HEENT: No facial asymmetry, EOM normal, no epistaxis, neck supple PULMONARY: Diminished bilateral breath sounds CARDIAC: Regular rate and rhythm GASTROINTESTINAL: Abdomen is soft and nontender EXTREMITIES: Peripheral pulses are palpable. Mild dependent bilateral lower extremity edema SKIN: Warm and dry NEURO: Moves all extremities, mental status is normal, symmetrical antigravity bilateral upper and lower extremity motor strength. Physical Exam Completion Physical Exam Complete?: Yes Results - Respiratory Therapy Assistant Labs 06/12/25 05:31 06/12/25 05:31 Labs: Short CBC 06/12/25 Range/Units 05:31 WBC 22.1 H (3.8-10.6) Thou/mm3 Hgb 12.8 L (13.5-16.0) g/dL Hct 42.0 (41.0-53.0) % Plt Count 105 L (140-440) Thou/mm3 BMP 06/12/25 05:31 Sodium 136 Potassium 3.6 D Chloride 96 L Carbon Dioxide 23.5 BUN 25 H Creatinine 1.2 Glucose 133 H Calcium 9.0 Liver Function 06/12/25 Range/Units 05:31 Total Bilirubin 1.5 H (0.3-1.2) mg/dL AST 36 H (0-34) U/L ALT 55 H (10-49) U/L Alkaline Phosphatase 84 (46-116) U/L Albumin 3.3 L (3.4-4.8) gm/dL ABG Interpretation ABG results: 05/29/25 05/31/25 05/31/25 05:33 10:53 17:16 ABG pH 7.38 7.30 L 7.52 H D ABG pCO2 24 L 33 28 L ABG pO2 57 L* 125 H D 50 L* D ABG HCO3 14 L 16 L 23 ABG O2 Saturation 87 L 99 H 88 L ABG Base Excess -9 L -9 L 1 05/31/25 06/01/25 06/03/25 23:51 05:01 20:42 ABG pH 7.49 H 7.53 H 7.54 H ABG pCO2 29 L 27 L 26 L ABG pO2 57 L* 51 L* 60 L ABG HCO3 22 23 22 ABG O2 Saturation 91 88 L 88 L ABG Base Excess 0 1 0 06/04/25 06/06/25 10:17 07:58 ABG pH 7.54 H 7.50 H ABG pCO2 26 L 24 L ABG pO2 55 L* 50 L* ABG HCO3 22 19 L ABG O2 Saturation 91 87 L ABG Base Excess 1 -3 Assessment & Plan Additional Assessment Additional Assessment: Bilateral pleural effusion Streptococcus pneumonia Right upper lobe consolidation Bilateral lung infiltrates Lymphadenopathy Cirrhosis Pericardial effusion There is likely to be more than 1 problem contributing to the patient's pleural effusion. The rapid reoccurring right pleural effusion is most consistent with a hepatic hydrothorax especially given that it is reaccumulating on the right side. It is exudative which may be due to primary bacterial pleuritis, versus parapneumonic from the streptococcal pneumonia or malignant. Limit repeat thoracentesis unless the patient is significantly symptomatic Do not place a PleurX chest tube catheter yet, given the patient may still be recovering from pneumonia Slow recovery from pneumonia is expected due to his relative immunodeficient state from cirrhosis Hopefully his pulmonary reserve will stabilize and he can be discharged home with supplemental oxygen. If that is the case he should obtain weekly chest x- rays and as needed thoracentesis. If the chest x-rays are not clearing he may require further workup including a percutaneous biopsy of the right upper lobe lesion to evaluate for cancer. He has a high risk of malignancy from the past extensive smoking history and there is also a concurrent pericardial effusion which is uncommonly associated with cirrhosis Given his overall poor insight, and poor functional status it is not likely he will be able to coordinate the above discharge plan of care without being in a nursing facility or can rely on social support. Thank you for allowing me to precipitate in the care of this patient feel free to call with any questions or concerns Additional Plan Additional Plan: PLAN: See MD orders and discussion above. Will continue supportive care of the organ system problems, diagnoses, and failures noted above. Provider Notation Provider Notation: Although this document has been carefully reviewed, there may still be some phonetic and other typographical errors. These errors are purely grammatical due to imperfections in the software program and should not be construed in any way to compromise the substance of the patient's medical care during this visit. Thank you for the opportunity and privilege in assisting you with this patient's care and management. Quality Measures Quality Measures VTE prophylaxis
[2025-06-12] MEDS: MIDODRINE 5 MG TABLET 15 MG PO ×2 (13:41→21:18)
[2025-06-12] MEDS: LACTULOSE SYRUP 20 GM/30 ML UDC 40 GM PO ×2 (13:42→21:18)
[2025-06-12] MEDS: Heparin/D5w 25K 250 ML Ivpb 25,000 UNIT/250 ML BAG 14.397 UNIT IV (14:26)
[2025-06-12 18:24] LABS: Partial Thromboplastin Time 62.9 Seconds (22.0-36.0)
[2025-06-13] VITALS (18 sets, daily range): BP systolic 92–105; BP diastolic 65–84; PULSE 62–103; RESP 16–25; TEMP 36.1–36.8; O2SAT 87–98; BMI 20.4
[2025-06-13 01:10] LABS: Partial Thromboplastin Time 61.6 Seconds (22.0-36.0)
[2025-06-13] MEDS: LEVALBUTEROL RT 1.25 MG/0.5 ML NEBU INH ×6 (02:32→23:09)
[2025-06-13] MEDS: IPRATROPIUM RT 0.5 MG/ 2.5 ML NEBU INH ×6 (02:33→23:09)
[2025-06-13] MEDS: MIDODRINE 5 MG TABLET 15 MG PO (05:31)
[2025-06-13] MEDS: LACTULOSE SYRUP 20 GM/30 ML UDC 40 GM PO ×2 (05:31→15:03)
[2025-06-13 05:51] LABS: Basophils # (Auto) 0.1 Thou/mm3 (0.0-0.2); Basophils % (Auto) 0 % (0-2.5); Eosinophils # (Auto) 0.0 Thou/mm3 (0.0-0.5); Eosinophils % (Auto) 0 % (0-10); Hematocrit 40.5 % (41.0-53.0); Hemoglobin 12.2 g/dL (13.5-16.0); Immature Granulocytes Auto 1.46 Thou/mm3 (0.00-0.00); Lymphocytes # (Auto) 1.0 Thou/mm3 (1.0-4.8); Lymphocytes % (Auto) 4 % (10-50); Mean Corpuscular HGB Conc 30.1 g/dl (31.0-37.0); Mean Corpuscular Hemoglobin 26.2 pg (25.0-35.0); Mean Corpuscular Volume 87 fL (80-100); Monocytes # (Auto) 1.4 Thou/mm3 (0.0-0.8); Monocytes % (Auto) 5 % (0-12); Neutrophils # (Auto) 23.0 Thou/mm3 (1.8-7.7); Neutrophils % (Auto) 86 % (37-80); Nucleated Red Blood Cell # 0.09 Thou/mm3 (0.00-0.00); Nucleated Red Blood Cell % 0 /100 WBC (0); Platelet Count 100 Thou/mm3 (140-440); RDW Standard Deviation 65.7 fL (35.1-43.9); Red Blood Count 4.65 Miln/mm3 (4.50-5.90); White Blood Count 26.9 Thou/mm3 (3.8-10.6)
[2025-06-13 06:14] LABS: Alanine Aminotransferase 47 U/L (10-49); Albumin, Serum 3.7 gm/dL (3.4-4.8); Albumin/Globulin Ratio 1.2 (1.2-2.2); Alkaline Phosphatase 82 U/L (46-116); Anion Gap 14 (7-16); Aspartate Amino Transferase 36 U/L (0-34); BUN/Creatinine Ratio 23 Ratio (12-20); Bilirubin,Total 1.9 mg/dL (0.3-1.2); Blood Urea Nitrogen 28 mg/dL (9-23); Calcium 9.3 mg/dL (8.3-10.6); Calcium (Corrected) 9.5 mg/dL (8.5-10.1); Carbon Dioxide 26.4 mMol/L (20.0-31.0); Chloride 97 mMol/L (98-107); Creatinine (Component) 1.2 mg/dL (0.6-1.3); Estimated Creatinine Clearance 61.8 mL/min (>60); Globulin 3.2 gm/dL (2.3-3.5); Glucose 105 mg/dL (74-106); Magnesium 2.3 mg/dL (1.6-2.6); Osmolality,Calculated 279 (275-295); Potassium 3.6 mMol/L (3.4-5.1); Sodium 137 mMol/L (136-145); Total Protein 6.9 gm/dL (5.7-8.2); eGFR > 60 See Note
[2025-06-13 06:28] LABS: INR 1.3 (0.9-1.3); Partial Thromboplastin Time 58.3 Seconds (22.0-36.0); Prothrombin Time 13.6 Seconds (9.0-12.2)
[2025-06-13] MEDS: PANTOPRAZOLE 40 MG TABLET PO (08:08)
[2025-06-13] MEDS: NICOTINE PATCH 21 MG/24 HR PATCH.TD24 TOP (08:09)
[2025-06-13] MEDS: Heparin/D5w 25K 250 ML Ivpb 25,000 UNIT/250 ML BAG 14.397 UNIT IV (08:12)
--- NOTE | 2025-06-13 08:55 | PC.SS ---
Follow up note: Pt is on high flow O2, 25 liters 60% FIO2. Start IV antibiotic. Continue to wean down O2.
[2025-06-13] MEDS: CEFEPIME INJ 1 GM in SODIUM CHLORIDE 0.9% (Popper) 50 ML IV ×3 (09:05→21:31)
[2025-06-13] MEDS: ACETAMINOPHEN 325 MG TABLET PO (12:11)
--- NOTE | 2025-06-13 14:23 | ESPR_ITS ---
Documentation for date of: 06/13/25 Subjective - Hospitalist Subjective Interval history: 06/12: Rapid response was called for acute hypotension. Had to hold diuretics and give IV albumin. Consulted pulmonology who recommended treatment of pneumonia and optimize volume status. No PleurX recommended. May need rehab and biopsy of the lung after the end of treatment. 06/13: Blood pressure remains borderline. 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 Requested a session of DuoNebs. No cough, abdominal pain, nausea, or vomiting. Review of Systems Review of Systems Narrative Review of Systems: 12 point of system reviewed. All negative except as mentioned in the HPI Exam Vital Signs Temp Pulse Resp BP Pulse Ox O2 Del Method O2 Flow Rate 98.3 F 90 22 H 105/65 92 L High Flow Nasal Cannula 25 06/13/25 12:00 06/13/25 12:49 06/13/25 12:49 06/13/25 12:00 06/13/25 12:49 06/13/25 12:00 06/13/25 12:49 FiO2 60 06/13/25 12:49 Narrative General: Awake and in no acute distress; alert. moderately anxious, and agitated HEENT: PERRLA. Normocephalic, atraumatic, mucous membranes moist. Heart: Regular rate and rhythm, normal S1 and S2, no murmurs appreciated. Lungs: Improved and clearer lung sounds b/l. coarse breathe sounds Rt lower lobe zone. Present pleuritic chest pain. Abdomen: Soft, mildly distended, nontender, positive bowel sounds. No guarding or rebound tenderness. Mild ascites. : Aguilar in place. Large left inguinal mass, no discoloration or tenderness. Neurologic: Alert and oriented x3, no gross neurological deficit, and patient able to move all 4 extremities. Extremities: 1+ pitting edema extending up to knees. Skin: No rash or ecchymoses. Objective - Hospitalist Labs Diagram: 06/13/25 05:05 06/13/25 05:05 Labs: Laboratory Results - last 24 hr 06/12/25 06/13/25 06/13/25 17:05 00:30 05:05 WBC 26.9 H RBC 4.65 Hgb 12.2 L Hct 40.5 L MCV 87 MCH 26.2 MCHC 30.1 L RDW Std Deviation 65.7 H Plt Count 100 L Neut % (Auto) 86 H Lymph % (Auto) 4 L [place] % (Auto) 5 Eos % (Auto) 0 Baso % (Auto) 0 Neut # (Auto) 23.0 H Lymph # (Auto) 1.0 [place] # (Auto) 1.4 H Eos # (Auto) 0.0 Baso # (Auto) 0.1 Immature Gran # (Auto) 1.46 H Absolute Nucleated RBC 0.09 H Immature Gran % 5 H Nucleated RBC % 0 PT 13.6 H INR 1.3 APTT 62.9 H D 61.6 H 58.3 H Sodium 137 Potassium 3.6 Chloride 97 L Carbon Dioxide 26.4 Anion Gap 14 BUN 28 H Creatinine 1.2 Estim Creat Clear Calc 61.8 eGFR > 60 BUN/Creatinine Ratio 23 H Glucose 105 Calculated Osmolality 279 Calcium 9.3 Corrected Calcium 9.5 Magnesium 2.3 Total Bilirubin 1.9 H AST 36 H ALT 47 Alkaline Phosphatase 82 Total Protein 6.9 Albumin 3.7 Globulin 3.2 Albumin/Globulin Ratio 1.2 ABG Interpretation ABG results: 05/29/25 05/31/25 05/31/25 05:33 10:53 17:16 ABG pH 7.38 7.30 L 7.52 H D ABG pCO2 24 L 33 28 L ABG pO2 57 L* 125 H D 50 L* D ABG HCO3 14 L 16 L 23 ABG O2 Saturation 87 L 99 H 88 L ABG Base Excess -9 L -9 L 1 05/31/25 06/01/25 06/03/25 23:51 05:01 20:42 ABG pH 7.49 H 7.53 H 7.54 H ABG pCO2 29 L 27 L 26 L ABG pO2 57 L* 51 L* 60 L ABG HCO3 22 23 22 ABG O2 Saturation 91 88 L 88 L ABG Base Excess 0 1 0 06/04/25 06/06/25 10:17 07:58 ABG pH 7.54 H 7.50 H ABG pCO2 26 L 24 L ABG pO2 55 L* 50 L* ABG HCO3 22 19 L ABG O2 Saturation 91 87 L ABG Base Excess 1 -3 Assessment & Plan Patient Synopsis Patient is a 64 year old male with past medical history of schizophrenia, COPD on supplemental home oxygen, chronic active smoker greater than 40 pack years, and status post right inguinal hernia repair in 2018 who presented to ED on 05/29/25 for shortness of breath. Patient was admitted telemetry for acute on chronic hypoxic respiratory failure, pleural effusion, pneumonia and pulmonary emboli, upgraded to ICU on 05/31 for worsening acute on chronic respiratory distress. Downgraded back to telemetry as patient has stabilized and tolerating high flow.? #Acute on chronic hypoxic respiratory failure?secondary to likely malignancy, recurrent pleural effusions, bilateral pulmonary emboli and underlying COPD #Right middle lobe consolidation, Possible malignancy? #Right pleural effusion s/p thoracentesis (05/29, 06/01)? #Recurrent Pleural Effusions, likely parapneumonic - Chronic smoking history as above? 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 -S/p thoracentesis, -750 cc straw colored fluid? -Per lights criteria, fluid is exudative, likely secondary to malignancy? - Pleural fluid culture 05/29 grew Bacillus (likely cereus)? - CT head with and without contrast showed no cranial masses? + recent thoracentesis on 06/01 with 1.2 L drained of straw fluid, Light's criteria positive for exudative effusion.? + Repeat thoracentesis (06/04) : 1.5L of strawberry colored fluid drained from the Rt lung 06/04:?patient had increased work of breathing and respiratory rate was increased. CXR showed fluid?reaccumulation?and bedside US revealed right lung fluid pockets that were easily accessible. 1.5L of fluid was successfully drained from R lung.?FUP CXR showed apical?pnuemothorax.?Fluid re-accumulation most likely secondary to lung mass c/f malignancy pending lung bx? +LDH Pleural:serum 378:229 >.66 (exudative) +Protein pleural:serum 3.3:6.5 >0.5 (exudative) 06/09: CTA shows pulmonary artery emboli in RLL arterial branches and filling defect in LLL branches. Large pulmonary mass in RUL. Lt lung pneumonia. Large b/l pleural effusions. Cirrhosis. PT 13.4 and INR 1.3, APTT 27.4. 06/10: Review of the CTA by IR pointed out to air bronchograms, inconsistent with lung tumor. Cytology results from latest thoracentesis also showed very few atypical epithelial cells, not enough to rule cancer in definitively. 06/11: s/p US guided b/l thoracentesis with removal of 1.5L from the Rt lung and .5L from the Lt. 06/12: Rapid response was called for acute hypotension. Had to hold diuretics and give IV albumin. Consulted pulmonology who recommended treatment of pneumonia and optimize volume status. No PleurX recommended. May need rehab and biopsy of the lung after the end of treatment. 06/13: Blood pressure remains borderline. 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 -Albumen 25g -two doses given 6h apart -Held Lasix IV 5mg/h iso HoTN -Physiotherapist to try and titrate down oxygen requirements in preparation -morning chest x-ray further evaluation to see if lung has expanded. -repeat CT scan of lungs in 6mo to monitor for evolution of the Rt middle lobe consolidation -held lasix 80mg qday and spironolactone 50 due to worsening kidney fx and HoTN?? -encourage incentive spirometry use.?? - Per pathology, atypical?epitheial?cells, but not enough for definitive diagnosis of?maligancy; they suggest biopsy. 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 Likely secondary to?hypercoagable?state in setting of malignancy? - Presented with shortness of breath requiring 10 L supplemental oxygen at home.? - CTA showed bilateral pulmonary arterial emboli? - D-dimer elevated?? ? Plan:? -CT angio chest for reevaluation of previous PE -Heparin GTT based on PE protocol? -Monitor for bleed? -Cardiology consulted, appreciate recommendations?? #Cirrhosis? #Transaminitis (improving)? #Hyperbilirubinemia? #Anasarca? -patient consumed moderate amount of alcohol for many years? -Has elevated INR and thrombocytopenia, indicative of chronic pathology? -On exam, mild ascites and anasarca, improved s/p diuresis?? -AST 436 -> 41? - ALT 398 -> 105? Hepatitis panel?non reactive?? ? Plan:? - Lactulose PO 40g TID -?HOLD spiranolactone?100 mg daily?decreased to 50mg daily due to hyponatremia and HAGMA - rifaximin 550 mg BID? - Recommend patient follow up outpatient with hepatology/GI? - Midodrine 15 TID to for SBP <90?? #COPD exacerbation? Likely secondary to pneumonia? - Chronic smoking history? - Presented with shortness of breath requiring 10 L supplemental oxygen at home. Per chart review patient usually uses a liters at home per brother.?? - Used rescue inhaler use for the past 2 weeks prior to admission? - Lactic 9.0, Pro-Antony 1.33, WBC 14 with neutrophil dominance? - CT showed bilateral pneumonia and left upper lobe and right lower lobe? - Treated with azithromycin, Zosyn and Vancomycin (05/29?06/01)? +Patient takes breaths between words and has elevated respiratory rate that?worsens with?Bipap?due to increased anxiety.? ? Treatment:? - Prednisone PO 40mg Qday (completed 5d course 06/07 -04/2025) - IV levofloxacin (06/01- 06/07) completed 8d course, discontinued - Levalbuterol/ipratropium every 6?hoursla? -?DuoNebs?as needed? - Wean oxygen as tolerated? - Midodrine 15 TID to for SBP <90 ? #Agitation Patient becoming restless through the course of his prolonged hospital stay -HOLD Klonipin 0.25mg QAM and 0.5mg QPM iso lethargy. #YASMIN, resolved Creatinine 1.3 ->1.2 ->1.1 at baseline Cr range of .8 - 1.0 eGFR >60, BUN 32, BUN/Cr 24 ->27. prerenal azotemia YASMIN likely 2/2 hypovolemia. ? will hold spirinolactone and lasix - Daily renal panel to trend BUN, Cr, and electrolytes. ? Renally dose meds, avoid overdiuresis, and nephrotoxins. ? #Pneumonia Likely secondary to gram-negative versus gram-positive organisms?( completed treatment for) #Parapneumonic effusion? - Presented with worsening breathing and increased oxygen requirements. No fevers at home.? - Likely infectious in setting of Bacillus in pleural fluid? - WBC 14 -> 16 -> 15? - Influenza A&B, COVID negative? - UA clean?? - CT showed bilateral pneumonia and left upper lobe and right lower lobe? - Sputum Gram stain showed rare WBCs, 1+ GPC, 1+ GNR? - Pleural fluid culture 05/29 grew Bacillus (likely cereus)? +LDH Pleural:serum 378:229 >.66 (exudative) +Protein pleural:serum 3.3:6.5 >0.5 (exudative) Treatment:? - Discontinued azithromycin, Zosyn and vancomycin? - IV levofloxacin (06/01- 06/07) completed 8d course, discontinued -IV cefepime started 06/13 1 g every 8 hours - Monitor a.m. CBC? - Wean oxygen as tolerated? - Follow up repeat pleural studies and cytology?? -?lasix?40?qday? #SURYA? -Hemoglobin 12.4? -Iron studies showed low iron and iron saturation, ferritin and TIBC within normal limits? Treatment:? -No active treatment at this time? -Consider starting on iron once infection cleared? ? ? #History of schizophrenia? #Agitation/Anxiety?? - Per patient, he had been diagnosed years ago by PCP, now retired? - Not on any psych medication? - During rapid, patient was agitated with increased work of breathing, causing him to desaturate to 80%. Wanted to?removed?the BiPAP mask.? Treatment:? - Not currently on any psych medications?? - Hydroxyzine as needed for agitation?? - Follow-up with family or PCP regarding diagnosis? - Avoid overuse of benzodiazepines as may contribute to decreased respiratory drive #HAGMA, resolved -ordered bicitra 30ml bid- stopped Health maintenance:? Diet: cardiac DVT prophylaxis: Heparin drip?on hold Aguilar: None? Lines: PIV? CODE STATUS: Technology Support Analyst Spent with Patient Time: Total time spent is greater than 50% in coordination of care (as documented) at patient's floor/unit and/or counseling patient: Time with patient: 25 - 35 minutes Reason for Continued Stay Reason for continued stay: other Quality Measures Quality Measures VTE prophylaxis
--- NOTE | 2025-06-13 14:34 | ESPR_ITS ---
Documentation for date of: 06/13/25 Subjective Subjective Interval history: Mr. Jennifer Hooks is a 64-year-old male with a history of cirrhosis and COPD. Pulmonary medicine consultation was requested due to recurring bilateral pleural effusions and abnormal CT scan of the chest. The patient is reportedly a previous chronic alcoholic with a history of cirrhosis although he denies a history of alcoholism. CT imaging of the CT abdomen and pelvis is consistent with cirrhosis. The patient has had at least 4 thoracentesis dated May 29, June 01, June 04 and June 11. All 4 have been on the right side with rapid reaccumulation. A left sided thoracentesis was performed on June 11. The fluid analysis is consistent with an exudate. The patient is a poor historian. He recalls that he may have had a paracentesis done in the past. 2 weeks prior to admission he reports discolored nasal discharge and a mild cough. He reports improving shortness of breath post thoracenteses. He denies a past history of cancer but he endorses weight loss. No hemoptysis 06/13: this am he reports feeling the same Critical Care Note Critical care time (min.): 0 Exam Vital Signs Temp Pulse Resp BP Pulse Ox O2 Del Method O2 Flow Rate 98.3 F 90 22 H 105/65 92 L High Flow Nasal Cannula 25 06/13/25 12:00 06/13/25 12:49 06/13/25 12:49 06/13/25 12:00 06/13/25 12:49 06/13/25 12:00 06/13/25 12:49 FiO2 60 06/13/25 12:49 Narrative Exam GENERAL: Patient appears to be older than stated age, frail HEENT: No facial asymmetry, EOM normal, no epistaxis, neck supple PULMONARY: Diminished bilateral breath sounds, moderate dyspnea CARDIAC: Regular rate and rhythm GASTROINTESTINAL: Abdomen is soft and nontender EXTREMITIES: Peripheral pulses are palpable. Mild dependent bilateral lower extremity edema SKIN: Warm and dry NEURO: Moves all extremities, mental status is normal, symmetrical antigravity bilateral upper and lower extremity motor strength. PSYCH: delusional Physical Exam Completion Physical Exam Complete?: Yes Objective - [place] Labs 06/13/25 05:05 06/13/25 05:05 Labs: Laboratory Results - last 24 hr 12/11/25 12/12/25 12/12/25 17:05 00:30 05:05 WBC 26.9 H RBC 4.65 Hgb 12.2 L Hct 40.5 L MCV 87 MCH 26.2 MCHC 30.1 L RDW Std Deviation 65.7 H Plt Count 100 L Neut % (Auto) 86 H Lymph % (Auto) 4 L [place] % (Auto) 5 Eos % (Auto) 0 Baso % (Auto) 0 Neut # (Auto) 23.0 H Lymph # (Auto) 1.0 [place] # (Auto) 1.4 H Eos # (Auto) 0.0 Baso # (Auto) 0.1 Immature Gran # (Auto) 1.46 H Absolute Nucleated RBC 0.09 H Immature Gran % 5 H Nucleated RBC % 0 PT 13.6 H INR 1.3 APTT 62.9 H D 61.6 H 58.3 H Sodium 137 Potassium 3.6 Chloride 97 L Carbon Dioxide 26.4 Anion Gap 14 BUN 28 H Creatinine 1.2 Estim Creat Clear Calc 61.8 eGFR > 60 BUN/Creatinine Ratio 23 H Glucose 105 Calculated Osmolality 279 Calcium 9.3 Corrected Calcium 9.5 Magnesium 2.3 Total Bilirubin 1.9 H AST 36 H ALT 47 Alkaline Phosphatase 82 Total Protein 6.9 Albumin 3.7 Globulin 3.2 Albumin/Globulin Ratio 1.2 Assessment & Plan Additional Assessment Additional Assessment: Bilateral pleural effusion Streptococcus pneumonia Right upper lobe consolidation Bilateral lung infiltrates Lymphadenopathy Cirrhosis Pericardial effusion repeat CXR tomorrow am Tried calling brother Boy [phone] to discuss case b/c while the pt is conversational - he is also delusional and is saying he is [place] We do not have a definitive diagnosis for the pleural effusion or lung lesions - cytology is negative he denies risk factors for liver diz such as etoh abuse or ivda - HEP C negative. need to speak with a medical decision maker on his behalf in order to comprehend next steps such as eventual PleurX? CT biopsy if imaging does not clear as outpt; ??liverr biopsy given radiologist reports liver contour is c/w cirrhosis -but serological studies are not fully supportive Additional Plan Additional Plan: PLAN: See MD orders and discussion above. Will continue supportive care of the organ system problems, diagnoses, and failures noted above. Provider Notation Provider Notation: Although this document has been carefully reviewed, there may still be some phonetic and other typographical errors. These errors are purely grammatical due to imperfections in the software program and should not be construed in any way to compromise the substance of the patient's medical care during this visit. Thank you for the opportunity and privilege in assisting you with this patient's care and management.
[2025-06-13] MEDS: ALBUTEROL/IPRATROPIUM (Duoneb) RT SOL 3 ML NEBU INH (20:22)
[2025-06-13] MEDS: MELATONIN 3 MG TABLET PO (21:31)
[2025-06-14] VITALS (17 sets, daily range): BP systolic 94–109; BP diastolic 66–81; PULSE 94–105; RESP 19–30; TEMP 36.6–37.2; O2SAT 90–99; BMI 20.5
[2025-06-14] MEDS: Heparin/D5w 25K 250 ML Ivpb 25,000 UNIT/250 ML BAG 14.397 UNIT IV ×2 (01:44→19:35)
[2025-06-14] MEDS: IPRATROPIUM RT 0.5 MG/ 2.5 ML NEBU INH ×6 (02:00→23:23)
[2025-06-14] MEDS: LEVALBUTEROL RT 1.25 MG/0.5 ML NEBU INH ×6 (02:00→23:23)
--- NOTE | 2025-06-14 05:00 | XR_ITS ---
EXAMINATION: AP chest single view TECHNIQUE: AP portable upright chest single view Date and time: June 14, 2025, 0523 hours, comparison June 11, 2025 INDICATIONS: Shortness of breath chronic, pulmonary neoplasm history FINDINGS: Again noted large pulmonary mass in the right upper lobe Diffuse opacity left lung again depicted Mild enlargement cardiac contour Prominent osteopenia IMPRESSION: Severe diffuse left lung pneumonia/ARDS again noted
[2025-06-14] MEDS: LACTULOSE SYRUP 20 GM/30 ML UDC 40 GM PO ×2 (05:51→13:44)
[2025-06-14] MEDS: CEFEPIME INJ 1 GM in SODIUM CHLORIDE 0.9% (Popper) 50 ML IV ×2 (05:52→13:44)
[2025-06-14 07:37] LABS: Partial Thromboplastin Time 67.0 Seconds (22.0-36.0)
--- NOTE | 2025-06-14 08:13 | ESPR_ITS ---
Documentation for date of: 06/14/25 Subjective Subjective Interval history: 06/12: Rapid response was called for acute hypotension. Had to hold diuretics and give IV albumin. Consulted pulmonology who recommended treatment of pneumonia and optimize volume status. No PleurX recommended. May need rehab and biopsy of the lung after the end of treatment. 06/13: Blood pressure remains borderline. 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 Requested a session of DuoNebs. No cough, abdominal pain, nausea, or vomiting. 06/14: No reported events overnight. Patient endorses anxiety and increase in lethargy. Continues to saturate between 90-92% on high flow nasal cannula 30L, 80% FiO2. Due to of cefepime IV for treatment resistant pneumonia. Exam Vital Signs Temp Pulse Resp BP Pulse Ox O2 Del Method O2 Flow Rate 98.9 F 105 H 22 H 98/74 92 L High Flow Nasal Cannula 25 06/14/25 04:00 06/14/25 06:42 06/14/25 06:42 06/14/25 05:52 06/14/25 06:42 06/14/25 04:00 06/14/25 06:42 FiO2 80 06/14/25 06:42 Narrative Exam General: Awake and in no acute distress; alert. moderately anxious, and agitated HEENT: PERRLA. Normocephalic, atraumatic, mucous membranes moist. Heart: Regular rate and rhythm, normal S1 and S2, no murmurs appreciated. Lungs: Improved and clearer lung sounds b/l. coarse breathe sounds Rt lower lobe zone. Present pleuritic chest pain. Abdomen: Soft, mildly distended, nontender, positive bowel sounds. No guarding or rebound tenderness. Mild ascites. : Aguilar in place. Large left inguinal mass, no discoloration or tenderness. Neurologic: Alert and oriented x3, no gross neurological deficit, and patient able to move all 4 extremities. Extremities: 1+ pitting edema extending up to knees. Skin: No rash or ecchymoses. Objective Labs 06/14/25 05:41 06/14/25 05:41 Labs: Laboratory Results - last 24 hr 06/14/25 05:41 APTT 67.0 H ABG Interpretation ABG results: 05/29/25 05/31/25 05/31/25 05:33 10:53 17:16 ABG pH 7.38 7.30 L 7.52 H D ABG pCO2 24 L 33 28 L ABG pO2 57 L* 125 H D 50 L* D ABG HCO3 14 L 16 L 23 ABG O2 Saturation 87 L 99 H 88 L ABG Base Excess -9 L -9 L 1 05/31/25 06/01/25 06/03/25 23:51 05:01 20:42 ABG pH 7.49 H 7.53 H 7.54 H ABG pCO2 29 L 27 L 26 L ABG pO2 57 L* 51 L* 60 L ABG HCO3 22 23 22 ABG O2 Saturation 91 88 L 88 L ABG Base Excess 0 1 0 06/04/25 06/06/25 10:17 07:58 ABG pH 7.54 H 7.50 H ABG pCO2 26 L 24 L ABG pO2 55 L* 50 L* ABG HCO3 22 19 L ABG O2 Saturation 91 87 L ABG Base Excess 1 -3 Quality Measures Quality Measures VTE prophylaxis Assessment & Plan Assessment Current Active Medications: Generic Name Dose Route Start Last Admin Trade Name Freq PRN Reason Stop Dose Admin Acetaminophen 325 mg 05/29/25 12:07 06/13/25 12:11 Acetaminophen 325 Mg Tablet PO 06/28/25 12:06 325 mg Q6H PRN Administration Fever >101.5, Pain 1-3 Albuterol/Ipratropium 3 ml 05/29/25 12:07 06/13/25 20:22 Albuterol/Ipratropium (Duoneb) Rt Becky 3 Ml Nebu INH 06/28/25 12:06 3 ml Q2HR PRN Administration SHORTNESS OF BREATH OR WHEEZE Haloperidol Lactate 2.5 mg 06/10/25 07:52 Haloperidol Lact Inj 5 Mg/Ml Vial IV X1 PRN Give before procedure Protocol Heparin Sodium/Dextrose 25,000 unit in 250 mls @ 12.957 mls/hr 06/11/25 17:45 06/14/25 01:44 Heparin In D5w Ivpb IV 06/25/25 17:44 20 units/kg/hr .[id number] COTY 14.397 mls/hr Protocol Administration 18 UNITS/KG/HR Cefepime HCl 1 gm/ Sodium 50 mls @ 100 mls/hr 06/13/25 08:30 06/14/25 05:52 Chloride IV 06/20/25 08:29 100 mls/hr Q8HR COTY Administration Ipratropium [place] 0.5 mg 06/04/25 19:00 06/14/25 06:34 Ipratropium Rt 0.5 Mg/ 2.5 Ml Nebu INH 07/04/25 18:59 0.5 mg Q4HRRT COTY Administration Lactulose 40 gm 06/12/25 14:00 06/14/25 05:51 Lactulose Syrup 20 Gm/30 Ml Udc PO 07/12/25 13:59 40 gm TID COTY Administration Protocol Levalbuterol HCl 1.25 mg 06/04/25 19:00 06/14/25 06:34 Levalbuterol Rt 1.25 Mg/0.5 Ml Nebu INH 07/04/25 18:59 1.25 mg Q4HRRT COTY Administration Midodrine 15 mg 06/04/25 10:20 06/14/25 05:52 Midodrine 5 Mg Tablet PO 07/04/25 10:19 Not Given TID COTY Nicotine 21 mg 05/29/25 12:15 06/13/25 08:09 Nicotine Patch 21 Mg/24 Hr Patch.Td24 TOP 06/28/25 12:14 21 mg QDAY COTY Administration Ondansetron HCl 4 mg 05/29/25 12:07 Ondansetron Inj 2 Mg/Ml Inj 2 Ml IVP 06/28/25 12:06 Q6H PRN NAUSEA OR VOMITING Protocol Pantoprazole Sodium 40 mg 06/08/25 09:00 06/13/25 08:08 Pantoprazole 40 Mg Tablet PO 06/28/25 12:14 40 mg QDAY COTY Administration Sodium Chloride 3 ml 05/31/25 10:52 06/12/25 02:33 Sodium Chloride Rt Becky 0.9% 3 Ml Nebu INH 06/30/25 10:51 3 ml PRN PRN Administration SOLN Plan Patient is a 64 year old male with past medical history of schizophrenia, COPD on supplemental home oxygen, chronic active smoker greater than 40 pack years, and status post right inguinal hernia repair in 2018 who presented to ED on 05/29/25 for shortness of breath. Patient was admitted telemetry for acute on chronic hypoxic respiratory failure, pleural effusion, pneumonia and pulmonary emboli, upgraded to ICU on 05/31 for worsening acute on chronic respiratory distress. Downgraded back to telemetry as patient has stabilized and tolerating high flow.? #Acute on chronic hypoxic respiratory failure?secondary to likely malignancy, recurrent pleural effusions, bilateral pulmonary emboli and underlying COPD #Right middle lobe consolidation, Possible malignancy? #Right pleural effusion s/p thoracentesis (05/29, 06/01)? #Recurrent Pleural Effusions, likely parapneumonic - Chronic smoking history as above? 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 -S/p thoracentesis, -750 cc straw colored fluid? -Per lights criteria, fluid is exudative, likely secondary to malignancy? - Pleural fluid culture 05/29 grew Bacillus (likely cereus)? - CT head with and without contrast showed no cranial masses? + recent thoracentesis on 06/01 with 1.2 L drained of straw fluid, Light's criteria positive for exudative effusion.? + Repeat thoracentesis (06/04) : 1.5L of strawberry colored fluid drained from the Rt lung 06/04:?patient had increased work of breathing and respiratory rate was increased. CXR showed fluid?reaccumulation?and bedside US revealed right lung fluid pockets that were easily accessible. 1.5L of fluid was successfully drained from R lung.?FUP CXR showed apical?pnuemothorax.?Fluid re-accumulation most likely secondary to lung mass c/f malignancy pending lung bx? +LDH Pleural:serum 378:229 >.66 (exudative) +Protein pleural:serum 3.3:6.5 >0.5 (exudative) 06/09: CTA shows pulmonary artery emboli in RLL arterial branches and filling defect in LLL branches. Large pulmonary mass in RUL. Lt lung pneumonia. Large b/l pleural effusions. Cirrhosis. PT 13.4 and INR 1.3, APTT 27.4. 06/10: Review of the CTA by IR pointed out to air bronchograms, inconsistent with lung tumor. Cytology results from latest thoracentesis also showed very few atypical epithelial cells, not enough to rule cancer in definitively. 06/11: s/p US guided b/l thoracentesis with removal of 1.5L from the Rt lung and .5L from the Lt. 06/12: Rapid response was called for acute hypotension. Had to hold diuretics and give IV albumin. Consulted pulmonology who recommended treatment of pneumonia and optimize volume status. No PleurX recommended. May need rehab and biopsy of the lung after the end of treatment. 06/13: Blood pressure remains borderline. 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 -Albumen 25g -two doses given 6h apart -Held Lasix IV 5mg/h iso HoTN -Physiotherapist to try and titrate down oxygen requirements in preparation -morning chest x-ray further evaluation to see if lung has expanded. -repeat CT scan of lungs in 6mo to monitor for evolution of the Rt middle lobe consolidation -held lasix 80mg qday and spironolactone 50 due to worsening kidney fx and HoTN?? -encourage incentive spirometry use.?? - Per pathology, atypical?epitheial?cells, but not enough for definitive diagnosis of?maligancy; they suggest biopsy. - Ordered CT lung biopsy per oncology recommendations; on hold at this time due high O2 requirements - Continue cefepime IV 1 every 8 hourly g started on [06/13? 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 Likely secondary to?hypercoagable?state in setting of malignancy? - Presented with shortness of breath requiring 10 L supplemental oxygen at home.? - CTA showed bilateral pulmonary arterial emboli? - D-dimer elevated?? ? Plan:? -CT angio chest for reevaluation of previous PE -Heparin GTT based on PE protocol? -Monitor for bleed? -Cardiology consulted, appreciate recommendations?? #Cirrhosis? #Transaminitis (improving)? #Hyperbilirubinemia? #Anasarca? -patient consumed moderate amount of alcohol for many years? -Has elevated INR and thrombocytopenia, indicative of chronic pathology? -On exam, mild ascites and anasarca, improved s/p diuresis?? -AST 436 -> 41? - ALT 398 -> 105? Hepatitis panel?non reactive?? ? Plan:? - Lactulose PO 40g TID -?HOLD spiranolactone?100 mg daily?decreased to 50mg daily due to hyponatremia and HAGMA - rifaximin 550 mg BID? - Recommend patient follow up outpatient with hepatology/GI? - Midodrine 15 TID to for SBP <90?? #COPD exacerbation? Likely secondary to pneumonia? - Chronic smoking history? - Presented with shortness of breath requiring 10 L supplemental oxygen at home. Per chart review patient usually uses a liters at home per brother.?? - Used rescue inhaler use for the past 2 weeks prior to admission? - Lactic 9.0, Pro-Antony 1.33, WBC 14 with neutrophil dominance? - CT showed bilateral pneumonia and left upper lobe and right lower lobe? - Treated with azithromycin, Zosyn and Vancomycin (05/29?06/01)? +Patient takes breaths between words and has elevated respiratory rate that?worsens with?Bipap?due to increased anxiety.? ? Treatment:? - Prednisone PO 40mg Qday (completed 5d course 06/07 -04/2025) - IV levofloxacin (06/01- 06/07) completed 8d course, discontinued - Levalbuterol/ipratropium every 6?hoursla? -?DuoNebs?as needed? - Wean oxygen as tolerated? - Midodrine 15 TID to for SBP <90 ? #Agitation Patient becoming restless through the course of his prolonged hospital stay -HOLD Klonipin 0.25mg QAM and 0.5mg QPM iso lethargy. #YASMIN, resolved Creatinine 1.3 ->1.2 ->1.1 at baseline Cr range of .8 - 1.0 eGFR >60, BUN 32, BUN/Cr 24 ->27. prerenal azotemia YASMIN likely 2/2 hypovolemia. ? will hold spirinolactone and lasix - Daily renal panel to trend BUN, Cr, and electrolytes. ? Renally dose meds, avoid overdiuresis, and nephrotoxins. ? #Pneumonia Likely secondary to gram-negative versus gram-positive organisms?( completed treatment for) #Parapneumonic effusion? - Presented with worsening breathing and increased oxygen requirements. No fevers at home.? - Likely infectious in setting of Bacillus in pleural fluid? - WBC 14 -> 16 -> 15? - Influenza A&B, COVID negative? - UA clean?? - CT showed bilateral pneumonia and left upper lobe and right lower lobe? - Sputum Gram stain showed rare WBCs, 1+ GPC, 1+ GNR? - Pleural fluid culture 05/29 grew Bacillus (likely cereus)? +LDH Pleural:serum 378:229 >.66 (exudative) +Protein pleural:serum 3.3:6.5 >0.5 (exudative) Treatment:? - Discontinued azithromycin, Zosyn and vancomycin? - IV levofloxacin (06/01- 06/07) completed 8d course, discontinued -IV cefepime started 06/13 1 g every 8 hours - Monitor a.m. CBC? - Wean oxygen as tolerated? - Follow up repeat pleural studies and cytology?? -?lasix?40?qday? #SURYA? -Hemoglobin 12.4? -Iron studies showed low iron and iron saturation, ferritin and TIBC within normal limits? Treatment:? -No active treatment at this time? -Consider starting on iron once infection cleared? ? ? #History of schizophrenia? #Agitation/Anxiety?? - Per patient, he had been diagnosed years ago by PCP, now retired? - Not on any psych medication? - During rapid, patient was agitated with increased work of breathing, causing him to desaturate to 80%. Wanted to?removed?the BiPAP mask.? Treatment:? - Not currently on any psych medications?? - Hydroxyzine as needed for agitation?? - Follow-up with family or PCP regarding diagnosis? - Avoid overuse of benzodiazepines as may contribute to decreased respiratory drive #HAGMA, resolved -ordered bicitra 30ml bid- stopped Health maintenance:? Diet: cardiac DVT prophylaxis: Heparin drip? Aguilar: None? Lines: PIV? CODE STATUS: Full Plan of care discussed with Attending Dr. Janeth Cameron MD PGY 2 Disclaimer: This note was dictated by speech recognition. Minor errors in house builder may be present due to voice recognition software. Attending Provider Attestation/Addendum Patient seen and examined. He was very this morning. Staff was able to come elevated. He will continue treatment for pneumonia with cefepime. He is on bronchodilator treatment. WBC count is 25,500. The patient is afebrile; he is on high flow. Discussed with housestaff.
[2025-06-14] MEDS: NICOTINE PATCH 21 MG/24 HR PATCH.TD24 TOP (08:44)
[2025-06-14] MEDS: PANTOPRAZOLE 40 MG TABLET PO (08:44)
[2025-06-14 08:54] LABS: Alanine Aminotransferase 43 U/L (10-49); Albumin, Serum 3.6 gm/dL (3.4-4.8); Albumin/Globulin Ratio 1.1 (1.2-2.2); Alkaline Phosphatase 89 U/L (46-116); Anion Gap 13 (7-16); Aspartate Amino Transferase 29 U/L (0-34); BUN/Creatinine Ratio 27 Ratio (12-20); Bilirubin,Total 1.8 mg/dL (0.3-1.2); Blood Urea Nitrogen 27 mg/dL (9-23); Calcium 10.2 mg/dL (8.3-10.6); Calcium (Corrected) 10.5 mg/dL (8.5-10.1); Carbon Dioxide 24.3 mMol/L (20.0-31.0); Chloride 98 mMol/L (98-107); Creatinine (Component) 1.0 mg/dL (0.6-1.3); Estimated Creatinine Clearance 74.7 mL/min (>60); Globulin 3.2 gm/dL (2.3-3.5); Glucose 99 mg/dL (74-106); Osmolality,Calculated 275 (275-295); Potassium 3.6 mMol/L (3.4-5.1); Sodium 135 mMol/L (136-145); Total Protein 6.8 gm/dL (5.7-8.2); eGFR > 60 See Note
[2025-06-14 08:57] LABS: Basophils # (Auto) 0.1 Thou/mm3 (0.0-0.2); Basophils % (Auto) 0 % (0-2.5); Eosinophils # (Auto) 0.0 Thou/mm3 (0.0-0.5); Eosinophils % (Auto) 0 % (0-10); Hematocrit 38.7 % (41.0-53.0); Hemoglobin 11.8 g/dL (13.5-16.0); Immature Granulocytes Auto 1.40 Thou/mm3 (0.00-0.00); Lymphocytes # (Auto) 0.8 Thou/mm3 (1.0-4.8); Lymphocytes % (Auto) 3 % (10-50); Mean Corpuscular HGB Conc 30.5 g/dl (31.0-37.0); Mean Corpuscular Hemoglobin 26.3 pg (25.0-35.0); Mean Corpuscular Volume 86 fL (80-100); Monocytes # (Auto) 1.3 Thou/mm3 (0.0-0.8); Monocytes % (Auto) 5 % (0-12); Neutrophils # (Auto) 22.0 Thou/mm3 (1.8-7.7); Neutrophils % (Auto) 86 % (37-80); Nucleated Red Blood Cell # 0.09 Thou/mm3 (0.00-0.00); Nucleated Red Blood Cell % 0 /100 WBC (0); Platelet Count 96 Thou/mm3 (140-440); RDW Standard Deviation 68.3 fL (35.1-43.9); Red Blood Count 4.48 Miln/mm3 (4.50-5.90); White Blood Count 25.5 Thou/mm3 (3.8-10.6)
[2025-06-14] MEDS: FUROSEMIDE INJ 10 MG/ML VIAL 2 ML 20 MG IVP (11:15)
[2025-06-14] MEDS: ALBUTEROL/IPRATROPIUM (Duoneb) RT SOL 3 ML NEBU INH (13:25)
[2025-06-14] MEDS: MIDODRINE 5 MG TABLET 15 MG PO (13:43)
[2025-06-14 15:00] LABS: Partial Thromboplastin Time 60.0 Seconds (22.0-36.0)
[2025-06-14] MEDS: MELATONIN 3 MG TABLET 6 MG PO (19:43)
[2025-06-14] MEDS: CEFEPIME INJ 2 GM in SODIUM CHLORIDE 0.9% (Popper) 50 ML IV (21:18)
[2025-06-15] VITALS (18 sets, daily range): BP systolic 91–104; BP diastolic 66–84; PULSE 96–114; RESP 15–36; TEMP 36.1–36.8; O2SAT 89–96; BMI 20.4
[2025-06-15] MEDS: ACETAMINOPHEN 325 MG TABLET PO (01:21)
[2025-06-15] MEDS: LEVALBUTEROL RT 1.25 MG/0.5 ML NEBU INH ×6 (02:54→23:02)
[2025-06-15] MEDS: IPRATROPIUM RT 0.5 MG/ 2.5 ML NEBU INH ×6 (02:54→23:04)
[2025-06-15] MEDS: CEFEPIME INJ 2 GM in SODIUM CHLORIDE 0.9% (Popper) 50 ML IV ×3 (05:22→21:13)
[2025-06-15 05:59] LABS: Basophils # (Auto) 0.0 Thou/mm3 (0.0-0.2); Basophils % (Auto) 0 % (0-2.5); Eosinophils # (Auto) 0.0 Thou/mm3 (0.0-0.5); Eosinophils % (Auto) 0 % (0-10); Hematocrit 39.6 % (41.0-53.0); Hemoglobin 12.3 g/dL (13.5-16.0); Immature Granulocytes Auto 1.36 Thou/mm3 (0.00-0.00); Lymphocytes # (Auto) 0.7 Thou/mm3 (1.0-4.8); Lymphocytes % (Auto) 3 % (10-50); Mean Corpuscular HGB Conc 31.1 g/dl (31.0-37.0); Mean Corpuscular Hemoglobin 26.3 pg (25.0-35.0); Mean Corpuscular Volume 85 fL (80-100); Monocytes # (Auto) 1.1 Thou/mm3 (0.0-0.8); Monocytes % (Auto) 5 % (0-12); Neutrophils # (Auto) 19.7 Thou/mm3 (1.8-7.7); Neutrophils % (Auto) 86 % (37-80); Nucleated Red Blood Cell # 0.16 Thou/mm3 (0.00-0.00); Nucleated Red Blood Cell % 1 /100 WBC (0); Platelet Count 102 Thou/mm3 (140-440); RDW Standard Deviation 68.5 fL (35.1-43.9); Red Blood Count 4.68 Miln/mm3 (4.50-5.90); White Blood Count 22.8 Thou/mm3 (3.8-10.6)
[2025-06-15 06:20] LABS: Alanine Aminotransferase 39 U/L (10-49); Albumin, Serum 3.5 gm/dL (3.4-4.8); Albumin/Globulin Ratio 1.0 (1.2-2.2); Alkaline Phosphatase 89 U/L (46-116); Anion Gap 16 (7-16); Aspartate Amino Transferase < 8 U/L (0-34); BUN/Creatinine Ratio 24 Ratio (12-20); Bilirubin,Total 2.1 mg/dL (0.3-1.2); Blood Urea Nitrogen 26 mg/dL (9-23); Calcium 10.1 mg/dL (8.3-10.6); Calcium (Corrected) 10.5 mg/dL (8.5-10.1); Carbon Dioxide 19.1 mMol/L (20.0-31.0); Chloride 96 mMol/L (98-107); Creatinine (Component) 1.1 mg/dL (0.6-1.3); Estimated Creatinine Clearance 67.4 mL/min (>60); Globulin 3.4 gm/dL (2.3-3.5); Glucose 124 mg/dL (74-106); Magnesium 2.3 mg/dL (1.6-2.6); Osmolality,Calculated 268 (275-295); Potassium 3.8 mMol/L (3.4-5.1); Sodium 131 mMol/L (136-145); Total Protein 6.9 gm/dL (5.7-8.2); eGFR > 60 See Note
[2025-06-15 06:28] LABS: Partial Thromboplastin Time 59.2 Seconds (22.0-36.0)
[2025-06-15] MEDS: NICOTINE PATCH 21 MG/24 HR PATCH.TD24 TOP (08:48)
[2025-06-15] MEDS: SPIRONOLACTONE 25 MG TABLET PO (08:49)
[2025-06-15] MEDS: PANTOPRAZOLE 40 MG TABLET PO (08:49)
--- NOTE | 2025-06-15 11:18 | XR_ITS ---
EXAMINATION: AP chest single view TECHNIQUE: AP portable semiupright chest single view Date and time: June 15, 2025, 1148 hours, comparison June 14, 2025 INDICATIONS: Hypoxic respiratory failure, pneumonia ARDS on earlier chest films with pulmonary mass lesion in the right lung FINDINGS: Bilateral extensive pneumonia ARDS pattern Large pulmonary mass right upper lobe again noted Moderate right pleural fluid Minimal blunting left lateral costophrenic angle Mild enlargement cardiac contour IMPRESSION: Extensive bilateral pneumonia ARDS pattern Large pulmonary mass right upper lobe Moderate right pleural fluid
[2025-06-15 13:29] LABS: Base Excess -1 (-3-3); HCO3 20 mEq/L (20-26); Inspired Oxygen, FIO2 95 %; O2 Saturation 95 % (91-98); PCO2 26 mmHg (32.0-48.0); PO2 67 mmHg (83-108); pH, Arterial 7.51 (7.35-7.45)
[2025-06-15 13:31] LABS: Allen Test Performed/OK; Inspired O2, VO2 Liters 15 L/min; Puncture Site Right Brachial
[2025-06-15] MEDS: LACTULOSE SYRUP 20 GM/30 ML UDC 30 GM PO ×2 (14:30→21:13)
[2025-06-15] MEDS: Heparin/D5w 25K 250 ML Ivpb 25,000 UNIT/250 ML BAG 14.397 UNIT IV (16:07)
--- NOTE | 2025-06-15 17:56 | ESPR_ITS ---
Documentation for date of: 06/15/25 Subjective Subjective Interval history: Patient was seen and examined at bedside. No acute events took place overnight. Patient was seen sitting up in bed, leaning forward, with a smile on face and speaking to himself.? Denies SOB, pain, or fevers. VSS tachycardia <110, O2 91% on HFNC 25,85 5BM ->lactulose 30g TID WBC 22.8/25.5, Plt 102 stable, Na 131, osmolality 268, bicarb 19.1 (metabolic compensation), alb 3.5 Exam Vital Signs Temp Pulse Resp BP Pulse Ox O2 Del Method O2 Flow Rate 98.1 F 112 H 23 H 92/67 96 Oxy Mask 15 06/15/25 16:00 06/15/25 16:00 06/15/25 16:00 06/15/25 16:00 06/15/25 16:00 06/15/25 16:00 06/15/25 16:00 FiO2 85 06/15/25 06:47 Narrative Exam General: Awake and in no acute distress; alert. moderately anxious, and agitated HEENT: PERRLA. Normocephalic, atraumatic, mucous membranes moist. Heart: Regular rate and rhythm, normal S1 and S2, no murmurs appreciated. Lungs: Improved and clearer lung sounds b/l. coarse breathe sounds Rt lower lobe zone. Present pleuritic chest pain. Abdomen: Soft, mildly distended, nontender, positive bowel sounds. No guarding or rebound tenderness. Mild ascites. : Aguilar in place. Large left inguinal mass, no discoloration or tenderness. Neurologic: Alert and oriented x3, no gross neurological deficit, and patient able to move all 4 extremities. Extremities: 1+ pitting edema extending up to knees. Skin: No rash or ecchymoses. Objective Labs 06/16/25 05:12 06/16/25 05:12 Labs: Laboratory Results - last 24 hr 06/15/25 06/15/25 05:24 13:20 WBC 22.8 H RBC 4.68 Hgb 12.3 L Hct 39.6 L MCV 85 MCH 26.3 MCHC 31.1 RDW Std Deviation 68.5 H Plt Count 102 L Neut % (Auto) 86 H Lymph % (Auto) 3 L [place] % (Auto) 5 Eos % (Auto) 0 Baso % (Auto) 0 Neut # (Auto) 19.7 H Lymph # (Auto) 0.7 L [place] # (Auto) 1.1 H Eos # (Auto) 0.0 Baso # (Auto) 0.0 Immature Gran # (Auto) 1.36 H Absolute Nucleated RBC 0.16 H Immature Gran % 6 H Nucleated RBC % 1 H APTT 59.2 H Puncture Site Right Brachial ABG pH 7.51 H ABG pCO2 26 L ABG pO2 67 L ABG HCO3 20 ABG O2 Saturation 95 ABG Base Excess -1 Oxygen Liter Flow 15 FiO2 95 Sodium 131 L Potassium 3.8 Chloride 96 L Carbon Dioxide 19.1 L Anion Gap 16 BUN 26 H Creatinine 1.1 Estim Creat Clear Calc 67.4 eGFR > 60 BUN/Creatinine Ratio 24 H Glucose 124 H Calculated Osmolality 268 L Calcium 10.1 Corrected Calcium 10.5 H Magnesium 2.3 Total Bilirubin 2.1 H AST < 8 ALT 39 Alkaline Phosphatase 89 Total Protein 6.9 Albumin 3.5 Globulin 3.4 Albumin/Globulin Ratio 1.0 L ABG Interpretation ABG results: 05/29/25 05/31/25 05/31/25 05:33 10:53 17:16 ABG pH 7.38 7.30 L 7.52 H D ABG pCO2 24 L 33 28 L ABG pO2 57 L* 125 H D 50 L* D ABG HCO3 14 L 16 L 23 ABG O2 Saturation 87 L 99 H 88 L ABG Base Excess -9 L -9 L 1 05/31/25 06/01/25 06/03/25 23:51 05:01 20:42 ABG pH 7.49 H 7.53 H 7.54 H ABG pCO2 29 L 27 L 26 L ABG pO2 57 L* 51 L* 60 L ABG HCO3 22 23 22 ABG O2 Saturation 91 88 L 88 L ABG Base Excess 0 1 0 06/04/25 06/06/25 06/15/25 10:17 07:58 13:20 ABG pH 7.54 H 7.50 H 7.51 H ABG pCO2 26 L 24 L 26 L ABG pO2 55 L* 50 L* 67 L ABG HCO3 22 19 L 20 ABG O2 Saturation 91 87 L 95 ABG Base Excess 1 -3 -1 Quality Measures Quality Measures VTE prophylaxis Assessment & Plan Assessment Current Active Medications: Generic Name Dose Route Start Last Admin Trade Name Freq PRN Reason Stop Dose Admin Acetaminophen 325 mg 05/29/25 12:07 06/15/25 01:21 Acetaminophen 325 Mg Tablet PO 06/28/25 12:06 325 mg Q6H PRN Administration Fever >101.5, Pain 1-3 Albuterol/Ipratropium 3 ml 05/29/25 12:07 06/14/25 13:25 Albuterol/Ipratropium (Duoneb) Rt Becky 3 Ml Nebu INH 06/28/25 12:06 3 ml Q2HR PRN Administration SHORTNESS OF BREATH OR WHEEZE Haloperidol Lactate 2.5 mg 06/10/25 07:52 Haloperidol Lact Inj 5 Mg/Ml Vial IV X1 PRN Give before procedure Protocol Heparin Sodium/Dextrose 25,000 unit in 250 mls @ 12.957 mls/hr 06/11/25 17:45 06/15/25 16:07 Heparin In D5w Ivpb IV 06/25/25 17:44 20 units/kg/hr .[id number] COTY 14.397 mls/hr Protocol Administration 18 UNITS/KG/HR Cefepime HCl 2 gm/ Sodium 50 mls @ 100 mls/hr 06/14/25 22:00 06/15/25 14:31 Chloride IV 06/20/25 08:29 100 mls/hr Q8HR COTY Administration Ipratropium [place] 0.5 mg 06/04/25 19:00 06/15/25 14:55 Ipratropium Rt 0.5 Mg/ 2.5 Ml Nebu INH 07/04/25 18:59 0.5 mg Q4HRRT COTY Administration Lactulose 30 gm 06/15/25 14:00 06/15/25 14:30 Lactulose Syrup 20 Gm/30 Ml Udc PO 07/15/25 13:59 30 gm TID COTY Administration Protocol Levalbuterol HCl 1.25 mg 06/04/25 19:00 06/15/25 14:55 Levalbuterol Rt 1.25 Mg/0.5 Ml Nebu INH 07/04/25 18:59 1.25 mg Q4HRRT COTY Administration Midodrine 15 mg 06/04/25 10:20 06/15/25 14:06 Midodrine 5 Mg Tablet PO 07/04/25 10:19 Not Given TID COTY Nicotine 21 mg 05/29/25 12:15 06/15/25 08:48 Nicotine Patch 21 Mg/24 Hr Patch.Td24 TOP 06/28/25 12:14 21 mg QDAY COTY Administration Ondansetron HCl 4 mg 05/29/25 12:07 Ondansetron Inj 2 Mg/Ml Inj 2 Ml IVP 06/28/25 12:06 Q6H PRN NAUSEA OR VOMITING Protocol Pantoprazole Sodium 40 mg 06/08/25 09:00 06/15/25 08:49 Pantoprazole 40 Mg Tablet PO 06/28/25 12:14 40 mg QDAY COTY Administration Sodium Chloride 3 ml 05/31/25 10:52 06/12/25 02:33 Sodium Chloride Rt Becky 0.9% 3 Ml Nebu INH 06/30/25 10:51 3 ml PRN PRN Administration SOLN Spironolactone 25 mg 06/15/25 09:00 06/15/25 08:49 Spironolactone 25 Mg Tablet PO 07/15/25 08:59 25 mg QDAY COTY Administration Plan Patient is a 64 year old male with past medical history of schizophrenia, COPD on supplemental home oxygen, chronic active smoker greater than 40 pack years, and status post right inguinal hernia repair in 2018 who presented to ED on 05/29/25 for shortness of breath. Patient was admitted telemetry for acute on chronic hypoxic respiratory failure, pleural effusion, pneumonia and pulmonary emboli, upgraded to ICU on 05/31 for worsening acute on chronic respiratory distress. Downgraded back to telemetry as patient has stabilized and tolerating high flow. 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 -S/p thoracentesis, -750 cc straw colored fluid -Per lights criteria, fluid is exudative, likely secondary to malignancy - Pleural fluid culture 05/29 grew Bacillus (likely cereus) - CT head with and without contrast showed no cranial masses + recent thoracentesis on 06/01 with 1.2 L drained of straw fluid, Light's criteria positive for exudative effusion. + Repeat thoracentesis (06/04) : 1.5L of strawberry colored fluid drained from the Rt lung 06/04: patient had increased work of breathing and respiratory rate was increased. CXR showed fluid reaccumulation and bedside US revealed right lung fluid pockets that were easily accessible. 1.5L of fluid was successfully drained from R lung. FUP CXR showed apical pnuemothorax. Fluid re-accumulation most likely secondary to lung mass c/f malignancy pending lung bx +LDH Pleural:serum 378:229 >.66 (exudative) +Protein pleural:serum 3.3:6.5 >0.5 (exudative) 06/09: CTA shows pulmonary artery emboli in RLL arterial branches and filling defect in LLL branches. Large pulmonary mass in RUL. Lt lung pneumonia. Large b/l pleural effusions. Cirrhosis. PT 13.4 and INR 1.3, APTT 27.4. 06/10: Review of the CTA by IR pointed out to air bronchograms, inconsistent with lung tumor. Cytology results from latest thoracentesis also showed very few atypical epithelial cells, not enough to rule cancer in definitively. 06/11: s/p US guided b/l thoracentesis with removal of 1.5L from the Rt lung and .5L from the Lt. 06/12: Rapid response was called for acute hypotension. Had to hold diuretics and give IV albumin. Consulted pulmonology who recommended treatment of pneumonia and optimize volume status. No PleurX recommended. May need rehab and biopsy of the lung after the end of treatment. 06/13: Blood pressure remains borderline. Added cefepime IV for possible nonhealing pneumonia in the setting of immune compression from his liver cirrhosis 06/15: Patient was weaned down to 30L via oxymask + pH 7.51, pCO2 26, PaO2 67, bicarb 20, O2 sat 95% + Cocci IgM (-) Plan: -Cefepime IV 1g Q8h (06/13- ) for possible non-healing pneumonia iso immunosuppression from liver cirrhosis. -ordered CXR -Physiotherapist to try and titrate down oxygen requirements in preparation -morning chest x-ray further evaluation to see if lung has expanded. -repeat CT scan of lungs in 6mo to monitor for evolution of the Rt middle lobe consolidation -held lasix 80mg qday and spironolactone 50 due to worsening kidney fx and HoTN? -encourage incentive spirometry use.? - Per pathology, atypical epitheial cells, but not enough for definitive diagnosis of maligancy; they suggest biopsy. #Bilateral pulmonary embolisms Likely secondary to hypercoagable state in setting of malignancy - Presented with shortness of breath requiring 10 L supplemental oxygen at home. - CTA showed bilateral pulmonary arterial emboli - D-dimer elevated? ? Plan: -Heparin GTT based on PE protocol -Monitor for bleed -Cardiology consulted, appreciate recommendations? -CT angio chest for reevaluation of previous PE #Cirrhosis #Transaminitis (improving) #Hyperbilirubinemia #Anasarca -patient consumed moderate amount of alcohol for many years -Has elevated INR and thrombocytopenia, indicative of chronic pathology -On exam, mild ascites and anasarca, improved s/p diuresis? -AST 436 -> 41 - ALT 398 -> 105 Hepatitis panel non reactive? Plan: - Lactulose PO 30g TID lowered as patient was having diarrhea with >5BM - Restarted spironolactone PO 25mg iso stable BP and kidney fx - rifaximin 550 mg BID - Recommend patient follow up outpatient with hepatology/GI - Midodrine 15 TID to for SBP <90? #COPD exacerbation Likely secondary to pneumonia - Chronic smoking history - Presented with shortness of breath requiring 10 L supplemental oxygen at home. Per chart review patient usually uses a liters at home per brother.? - Used rescue inhaler use for the past 2 weeks prior to admission - Lactic 9.0, Pro-[place]y 1.33, WBC 14 with neutrophil dominance - CT showed bilateral pneumonia and left upper lobe and right lower lobe - Treated with azithromycin, Zosyn and Vancomycin (05/29?06/01) +Patient takes breaths between words and has elevated respiratory rate that worsens with Bipap due to increased anxiety. ? Treatment: - Prednisone PO 40mg Qday (completed 5d course 06/07 -04/2025) - IV levofloxacin (06/01- 06/07) completed 8d course, discontinued - Levalbuterol/ipratropium every 6 hoursla - DuoNebs as needed - Wean oxygen as tolerated - Midodrine 15 TID to for SBP <90 ? #Agitation Patient becoming restless through the course of his prolonged hospital stay -HOLD Klonipin 0.25mg QAM and 0.5mg QPM iso lethargy. #YASMIN, resolved Creatinine 1.3 ->1.2 ->1.1 at baseline Cr range of .8 - 1.0 eGFR >60, BUN 32, BUN/Cr 24 ->27. prerenal azotemia YASMIN likely 2/2 hypovolemia. ? will hold spirinolactone and lasix - Daily renal panel to trend BUN, Cr, and electrolytes. ? Renally dose meds, avoid overdiuresis, and nephrotoxins. ? #Pneumonia Likely secondary to gram-negative versus gram-positive organisms (completed treatment for) #Parapneumonic effusion - Presented with worsening breathing and increased oxygen requirements. No fevers at home. - Likely infectious in setting of Bacillus in pleural fluid - WBC 14 -> 16 -> 15 - Influenza A&B, COVID negative - UA clean? - CT showed bilateral pneumonia and left upper lobe and right lower lobe - Sputum Gram stain showed rare WBCs, 1+ GPC, 1+ GNR - Pleural fluid culture 05/29 grew Bacillus (likely cereus) +LDH Pleural:serum 378:229 >.66 (exudative) +Protein pleural:serum 3.3:6.5 >0.5 (exudative) Treatment: - Discontinued azithromycin, Zosyn and vancomycin - IV levofloxacin (06/01- 06/07) completed 8d course, discontinued -IV cefepime started 06/13 1 g every 8 hours - Monitor a.m. CBC - Wean oxygen as tolerated - Follow up repeat pleural studies and cytology? - lasix 40 qday #SURYA -Hemoglobin 12.4 -Iron studies showed low iron and iron saturation, ferritin and TIBC within normal limits Treatment: -No active treatment at this time -Consider starting on iron once infection cleared ? ? #History of schizophrenia #Agitation/Anxiety? - Per patient, he had been diagnosed years ago by PCP, now retired - Not on any psych medication - During rapid, patient was agitated with increased work of breathing, causing him to desaturate to 80%. Wanted to removed the BiPAP mask. Treatment: - Not currently on any psych medications? - Hydroxyzine as needed for agitation? - Follow-up with family or PCP regarding diagnosis - Avoid overuse of benzodiazepines as may contribute to decreased respiratory drive #HAGMA, resolved -ordered bicitra 30ml bid- stopped Health maintenance: Diet: cardiac DVT prophylaxis: Heparin amy Aguilar: None Lines: PIV CODE STATUS: Full This case was discussed with my attending physician, Dr. Fowler, and senior resident, Dr Perez. Even though this this note was carefully revised there may still be minor errors in customs collector due to voice recognition software. Jozef Crisostomo, PGY I Senior Resident Attestation: I discussed with and supervised the international sales representative physician involved in the care of this patient. I personally saw and examined the patient and discussed the assessment and plan with the entire medicine team, including my attending. I agree with the assessment and plan as documented above. Gerber Perez MD PGY3 Internal Medicine Attending Provider Attestation/Addendum Patient was seen and examined with staff. The patient is drowsy. He is tachypneic. He is currently on cefepime for pneumonia. He has a right lung mass, pleural effusion, pulmonary embolism, cirrhosis and schizophrenia. The patient is not improving despite maximal medical treatment. The patient will need biopsy when safe to do so. He was already seen by pulmonary and oncologic services. The patient remains full code however his prognosis is poor due to multiple medical issues and malnutrition.
[2025-06-15] MEDS: MELATONIN 3 MG TABLET 6 MG PO (20:11)
[2025-06-16] VITALS (18 sets, daily range): BP systolic 81–124; BP diastolic 61–89; PULSE 93–107; RESP 12–35; TEMP 35.9–36.4; O2SAT 91–98; BMI 20.4
[2025-06-16] MEDS: IPRATROPIUM RT 0.5 MG/ 2.5 ML NEBU INH ×6 (01:57→22:11)
[2025-06-16] MEDS: LEVALBUTEROL RT 1.25 MG/0.5 ML NEBU INH ×6 (01:57→22:11)
[2025-06-16] MEDS: CEFEPIME INJ 2 GM in SODIUM CHLORIDE 0.9% (Popper) 50 ML IV ×3 (05:08→21:00)
[2025-06-16] MEDS: LACTULOSE SYRUP 20 GM/30 ML UDC 30 GM PO ×3 (05:08→21:00)
[2025-06-16 06:04] LABS: Basophils # (Auto) 0.1 Thou/mm3 (0.0-0.2); Basophils % (Auto) 0 % (0-2.5); Eosinophils # (Auto) 0.0 Thou/mm3 (0.0-0.5); Eosinophils % (Auto) 0 % (0-10); Hematocrit 38.9 % (41.0-53.0); Hemoglobin 11.9 g/dL (13.5-16.0); Immature Granulocytes Auto 1.21 Thou/mm3 (0.00-0.00); Lymphocytes # (Auto) 0.6 Thou/mm3 (1.0-4.8); Lymphocytes % (Auto) 3 % (10-50); Mean Corpuscular HGB Conc 30.6 g/dl (31.0-37.0); Mean Corpuscular Hemoglobin 26.1 pg (25.0-35.0); Mean Corpuscular Volume 85 fL (80-100); Monocytes # (Auto) 1.1 Thou/mm3 (0.0-0.8); Monocytes % (Auto) 4 % (0-12); Neutrophils # (Auto) 21.6 Thou/mm3 (1.8-7.7); Neutrophils % (Auto) 88 % (37-80); Nucleated Red Blood Cell # 0.25 Thou/mm3 (0.00-0.00); Nucleated Red Blood Cell % 1 /100 WBC (0); Platelet Count 82 Thou/mm3 (140-440); RDW Standard Deviation 65.9 fL (35.1-43.9); Red Blood Count 4.56 Miln/mm3 (4.50-5.90); White Blood Count 24.6 Thou/mm3 (3.8-10.6)
[2025-06-16 06:34] LABS: Partial Thromboplastin Time 67.7 Seconds (22.0-36.0)
[2025-06-16 06:42] LABS: Alanine Aminotransferase 38 U/L (10-49); Albumin, Serum 3.4 gm/dL (3.4-4.8); Albumin/Globulin Ratio 1.0 (1.2-2.2); Alkaline Phosphatase 88 U/L (46-116); Anion Gap 19 (7-16); Aspartate Amino Transferase 32 U/L (0-34); BUN/Creatinine Ratio 30 Ratio (12-20); Bilirubin,Total 2.3 mg/dL (0.3-1.2); Blood Urea Nitrogen 33 mg/dL (9-23); Calcium 9.9 mg/dL (8.3-10.6); Calcium (Corrected) 10.4 mg/dL (8.5-10.1); Carbon Dioxide 17.7 mMol/L (20.0-31.0); Chloride 96 mMol/L (98-107); Creatinine (Component) 1.1 mg/dL (0.6-1.3); Estimated Creatinine Clearance 67.4 mL/min (>60); Globulin 3.4 gm/dL (2.3-3.5); Glucose 106 mg/dL (74-106); Magnesium 2.4 mg/dL (1.6-2.6); Osmolality,Calculated 273 (275-295); Phosphorous 3.9 mg/dL (2.4-5.1); Potassium 3.5 mMol/L (3.4-5.1); Sodium 133 mMol/L (136-145); Total Protein 6.8 gm/dL (5.7-8.2); eGFR > 60 See Note
[2025-06-16] MEDS: PANTOPRAZOLE 40 MG TABLET PO (08:06)
[2025-06-16] MEDS: SPIRONOLACTONE 25 MG TABLET PO (08:06)
[2025-06-16] MEDS: NICOTINE PATCH 21 MG/24 HR PATCH.TD24 TOP (08:07)
[2025-06-16] MEDS: Heparin/D5w 25K 250 ML Ivpb 25,000 UNIT/250 ML BAG 14.397 UNIT IV (11:16)
[2025-06-16] MEDS: SPIRONOLACTONE 25 MG TABLET 50 MG PO (11:36)
--- NOTE | 2025-06-16 15:00 | PD.RESPRO ---
Documentation for date of: 06/16/25 Subjective Subjective Interval history: Patient was seen and examined at bedside. No acute events took place overnight. Patient spent the night in high anxiety and could sleep hardly. Denies SOB, pain/aches, fevers.? Had been satting well on 8L via NC, but was upgraded to HFNC again afterwards. Today patient was started on Seroquel 25mg Qday. VSS BP 110/77, O2 93% on 8L via oxymask +2BM, WBC 24.6, CMP Na 133, BUN 33, osms 273, cCa 10.4 (spironolactone?) Exam Vital Signs Temp Pulse Resp BP Pulse Ox O2 Del Method O2 Flow Rate 96.9 F 106 H 19 124/89 H 93 L Oxy Mask 35 06/16/25 12:00 06/16/25 12:00 06/16/25 12:00 06/16/25 12:00 06/16/25 12:00 06/16/25 12:00 06/16/25 12:00 FiO2 65 06/16/25 12:00 Narrative Exam General: Awake and in no acute distress; alert. moderately anxious, and agitated HEENT: PERRLA. Normocephalic, atraumatic, mucous membranes moist. Heart: Regular rate and rhythm, normal S1 and S2, no murmurs appreciated. Lungs: coarse breath and crackles sounds Rt lower lobe zone. Present pleuritic chest pain. Improved and clearer lung sounds b/l. Abdomen: Mild ascites. Abdomen: Soft, mildly distended, nontender, positive bowel sounds. No guarding or rebound tenderness. Mild ascites. : Aguilar in place. Large left inguinal mass, no discoloration or tenderness. Neurologic: Alert and oriented x3, no gross neurological deficit, and patient able to move all 4 extremities. Extremities: 2+ pitting b/l edema extending up to knees. Skin: No rash or ecchymoses. Objective Labs 06/19/25 05:00 06/19/25 05:00 Labs: Laboratory Results - last 24 hr 06/16/25 05:12 WBC 24.6 H RBC 4.56 Hgb 11.9 L Hct 38.9 L MCV 85 MCH 26.1 MCHC 30.6 L RDW Std Deviation 65.9 H Plt Count 82 L Neut % (Auto) 88 H Lymph % (Auto) 3 L Bibb % (Auto) 4 Eos % (Auto) 0 Baso % (Auto) 0 Neut # (Auto) 21.6 H Lymph # (Auto) 0.6 L Bibb # (Auto) 1.1 H Eos # (Auto) 0.0 Baso # (Auto) 0.1 Immature Gran # (Auto) 1.21 H Absolute Nucleated RBC 0.25 H Immature Gran % 5 H Nucleated RBC % 1 H APTT 67.7 H Sodium 133 L Potassium 3.5 Chloride 96 L Carbon Dioxide 17.7 L Anion Gap 19 H BUN 33 H Creatinine 1.1 Estim Creat Clear Calc 67.4 eGFR > 60 BUN/Creatinine Ratio 30 H Glucose 106 Calculated Osmolality 273 L Calcium 9.9 Corrected Calcium 10.4 H Phosphorus 3.9 Magnesium 2.4 Total Bilirubin 2.3 H AST 32 ALT 38 Alkaline Phosphatase 88 Total Protein 6.8 Albumin 3.4 Globulin 3.4 Albumin/Globulin Ratio 1.0 L ABG Interpretation ABG results: 05/29/25 05/31/25 05/31/25 05:33 10:53 17:16 ABG pH 7.38 7.30 L 7.52 H D ABG pCO2 24 L 33 28 L ABG pO2 57 L* 125 H D 50 L* D ABG HCO3 14 L 16 L 23 ABG O2 Saturation 87 L 99 H 88 L ABG Base Excess -9 L -9 L 1 05/31/25 06/01/25 06/03/25 23:51 05:01 20:42 ABG pH 7.49 H 7.53 H 7.54 H ABG pCO2 29 L 27 L 26 L ABG pO2 57 L* 51 L* 60 L ABG HCO3 22 23 22 ABG O2 Saturation 91 88 L 88 L ABG Base Excess 0 1 0 06/04/25 06/06/25 06/15/25 10:17 07:58 13:20 ABG pH 7.54 H 7.50 H 7.51 H ABG pCO2 26 L 24 L 26 L ABG pO2 55 L* 50 L* 67 L ABG HCO3 22 19 L 20 ABG O2 Saturation 91 87 L 95 ABG Base Excess 1 -3 -1 Quality Measures Quality Measures VTE prophylaxis Assessment & Plan Assessment Current Active Medications: Generic Name Dose Route Start Last Admin Trade Name Freq PRN Reason Stop Dose Admin Acetaminophen 325 mg 05/29/25 12:07 06/15/25 01:21 Acetaminophen 325 Mg Tablet PO 06/28/25 12:06 325 mg Q6H PRN Administration Fever >101.5, Pain 1-3 Albuterol/Ipratropium 3 ml 05/29/25 12:07 06/14/25 13:25 Albuterol/Ipratropium (Duoneb) Rt Becky 3 Ml Nebu INH 06/28/25 12:06 3 ml Q2HR PRN Administration SHORTNESS OF BREATH OR WHEEZE Clonazepam 0.25 mg 06/16/25 10:30 06/16/25 11:36 Clonazepam 0.5 Mg Tablet PO 06/21/25 10:29 0.25 mg BID COTY Administration Haloperidol Lactate 2.5 mg 06/10/25 07:52 Haloperidol Lact Inj 5 Mg/Ml Vial IV X1 PRN Give before procedure Protocol Heparin Sodium/Dextrose 25,000 unit in 250 mls @ 12.957 mls/hr 06/11/25 17:45 06/16/25 11:16 Heparin In D5w Ivpb IV 06/25/25 17:44 20 units/kg/hr .[id number] COTY 14.397 mls/hr Protocol Administration 18 UNITS/KG/HR Cefepime HCl 2 gm/ Sodium 50 mls @ 100 mls/hr 06/14/25 22:00 06/16/25 06:25 Chloride IV 06/20/25 08:29 Infused Q8HR COTY Infusion Ipratropium [place] 0.5 mg 06/04/25 19:00 06/16/25 10:24 Ipratropium Rt 0.5 Mg/ 2.5 Ml Nebu INH 07/04/25 18:59 0.5 mg Q4HRRT COTY Administration Lactulose 30 gm 06/15/25 14:00 06/16/25 05:08 Lactulose Syrup 20 Gm/30 Ml Udc PO 07/15/25 13:59 30 gm TID COTY Administration Protocol Levalbuterol HCl 1.25 mg 06/04/25 19:00 06/16/25 10:24 Levalbuterol Rt 1.25 Mg/0.5 Ml Nebu INH 07/04/25 18:59 1.25 mg Q4HRRT COTY Administration Melatonin 6 mg 06/15/25 21:00 06/15/25 20:11 Melatonin 3 Mg Tablet PO 07/15/25 20:59 6 mg HS COTY Administration Midodrine 15 mg 06/04/25 10:20 06/16/25 06:24 Midodrine 5 Mg Tablet PO 07/04/25 10:19 Not Given TID COTY Nicotine 21 mg 05/29/25 12:15 06/16/25 08:07 Nicotine Patch 21 Mg/24 Hr Patch.Td24 TOP 06/28/25 12:14 21 mg QDAY COTY Administration Ondansetron HCl 4 mg 05/29/25 12:07 Ondansetron Inj 2 Mg/Ml Inj 2 Ml IVP 06/28/25 12:06 Q6H PRN NAUSEA OR VOMITING Protocol Pantoprazole Sodium 40 mg 06/08/25 09:00 06/16/25 08:06 Pantoprazole 40 Mg Tablet PO 06/28/25 12:14 40 mg QDAY COTY Administration Quetiapine Fumarate 25 mg 06/16/25 12:15 06/16/25 13:02 Quetiapine Fumarate 25 Mg Tablet PO 07/16/25 12:14 25 mg QDAY COTY Administration Sodium Chloride 3 ml 05/31/25 10:52 06/12/25 02:33 Sodium Chloride Rt Becky 0.9% 3 Ml Nebu INH 06/30/25 10:51 3 ml PRN PRN Administration SOLN Spironolactone 25 mg 06/15/25 09:00 06/16/25 08:06 Spironolactone 25 Mg Tablet PO 07/15/25 08:59 25 mg QDAY COTY Administration Plan Patient is a 64 year old male with past medical history of schizophrenia, COPD on supplemental home oxygen, chronic active smoker greater than 40 pack years, and status post right inguinal hernia repair in 2018 who presented to ED on 05/29/25 for shortness of breath. Patient was admitted telemetry for acute on chronic hypoxic respiratory failure, pleural effusion, pneumonia and pulmonary emboli, upgraded to ICU on 05/31 for worsening acute on chronic respiratory distress. Downgraded back to telemetry as patient has stabilized and tolerating high flow. 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 -S/p thoracentesis, -750 cc straw colored fluid -Per lights criteria, fluid is exudative, likely secondary to malignancy - Pleural fluid culture 05/29 grew Bacillus (likely cereus) - CT head with and without contrast showed no cranial masses + recent thoracentesis on 06/01 with 1.2 L drained of straw fluid, Light's criteria positive for exudative effusion. + Repeat thoracentesis (06/04) : 1.5L of strawberry colored fluid drained from the Rt lung 06/04: patient had increased work of breathing and respiratory rate was increased. CXR showed fluid reaccumulation and bedside US revealed right lung fluid pockets that were easily accessible. 1.5L of fluid was successfully drained from R lung. FUP CXR showed apical pnuemothorax. Fluid re-accumulation most likely secondary to lung mass c/f malignancy pending lung bx +LDH Pleural:serum 378:229 >.66 (exudative) +Protein pleural:serum 3.3:6.5 >0.5 (exudative) 06/09: CTA shows pulmonary artery emboli in RLL arterial branches and filling defect in LLL branches. Large pulmonary mass in RUL. Lt lung pneumonia. Large b/l pleural effusions. Cirrhosis. PT 13.4 and INR 1.3, APTT 27.4. 06/10: Review of the CTA by IR pointed out to air bronchograms, inconsistent with lung tumor. Cytology results from latest thoracentesis also showed very few atypical epithelial cells, not enough to rule cancer in definitively. 06/11: s/p US guided b/l thoracentesis with removal of 1.5L from the Rt lung and .5L from the Lt. 06/12: Rapid response was called for acute hypotension. Had to hold diuretics and give IV albumin. Consulted pulmonology who recommended treatment of pneumonia and optimize volume status. No PleurX recommended. May need rehab and biopsy of the lung after the end of treatment. 06/13: Blood pressure remains borderline. Added cefepime IV for possible nonhealing pneumonia in the setting of immune compression from his liver cirrhosis 06/15: Patient was weaned down to 30L via oxymask + pH 7.51, pCO2 26, PaO2 67, bicarb 20, O2 sat 95% + Cocci IgM (-) 06/16: CXR: Bilateral pneumonia.? Large pulmonary consolidation RU lobe. Moderate Rt pleural effusion Pleural fluid analysis T protein effusions:serum 2.3/7 <0.5 =transudative ? Plan: -Cefepime IV 2g Q8h (06/13- ) for possible non-healing pneumonia iso immunosuppression from liver cirrhosis. -spironolactone PO 25mg iso stable BP and kidney fx -Physiotherapist to try and titrate down oxygen requirements in preparation -HOLD lasix 80mg qday? -encourage incentive spirometry use.? - Per pathology, atypical epitheial cells, but not enough for definitive diagnosis of maligancy; they suggest biopsy. -repeat CT scan of lungs in 6mo to monitor for evolution of the Rt middle lobe consolidation #Bilateral pulmonary embolisms Likely secondary to hypercoagable state in setting of malignancy - Presented with shortness of breath requiring 10 L supplemental oxygen at home. - CTA showed bilateral pulmonary arterial emboli - D-dimer elevated? ? Plan: -Heparin GTT based on PE protocol -Monitor for bleed -Cardiology consulted, appreciate recommendations? -CT angio chest for reevaluation of previous PE #Cirrhosis #Transaminitis (improving) #Hyperbilirubinemia #Anasarca -patient consumed moderate amount of alcohol for many years -Has elevated INR and thrombocytopenia, indicative of chronic pathology -On exam, mild ascites and anasarca, improved s/p diuresis? -AST 436 -> 41 - ALT 398 -> 105 Hepatitis panel non reactive? Plan: - Lactulose PO 30g TID lowered as patient was having diarrhea with >5BM - Restarted spironolactone PO 25mg iso stable BP and kidney fx -spironolactone 50mg x1 (06/16) - rifaximin 550 mg BID? - Midodrine 15 TID? - Recommend patient follow up outpatient with hepatology/GI #History of schizophrenia #Agitation/Anxiety? #Hospital Acquired Delirium - Per patient, he had been diagnosed years ago by PCP, now retired - Not on any psych medication - Patient becoming restless, and agitated due to his prolonged hospital course. ? Treatment: - Seroquel 25mg Qday - Klonipin 0.25mg bid? ? - Hydroxyzine as needed for agitation? - Follow-up with family or PCP regarding diagnosis #COPD exacerbation Likely secondary to pneumonia - Chronic smoking history - Presented with shortness of breath requiring 10 L supplemental oxygen at home. Per chart review patient usually uses a liters at home per brother.? - Used rescue inhaler use for the past 2 weeks prior to admission - Lactic 9.0, Pro-Antony 1.33, WBC 14 with neutrophil dominance - CT showed bilateral pneumonia and left upper lobe and right lower lobe - Treated with azithromycin, Zosyn and Vancomycin (05/29?06/01) +Patient takes breaths between words and has elevated respiratory rate that worsens with Bipap due to increased anxiety. ? Treatment: - Prednisone PO 40mg Qday (completed 5d course 06/07 -04/2025) - IV levofloxacin (06/01- 06/07) completed 8d course, discontinued - Levalbuterol/ipratropium every 6 hoursla - DuoNebs as needed - Wean oxygen as tolerated - Midodrine 15 TID to for SBP <90 ? #YASMIN, resolved Creatinine 1.3 ->1.2 ->1.1 at baseline Cr range of .8 - 1.0 eGFR >60, BUN 32, BUN/Cr 24 ->27. prerenal azotemia YASMIN likely 2/2 hypovolemia. ? will hold spirinolactone and lasix - Daily renal panel to trend BUN, Cr, and electrolytes. ? Renally dose meds, avoid overdiuresis, and nephrotoxins. ? #Pneumonia Likely secondary to gram-negative versus gram-positive organisms (completed treatment for) #Parapneumonic effusion - Presented with worsening breathing and increased oxygen requirements. No fevers at home. - Likely infectious in setting of Bacillus in pleural fluid - WBC 14 -> 16 -> 15 - Influenza A&B, COVID negative - UA clean? - CT showed bilateral pneumonia and left upper lobe and right lower lobe - Sputum Gram stain showed rare WBCs, 1+ GPC, 1+ GNR - Pleural fluid culture 05/29 grew Bacillus (likely cereus) +LDH Pleural:serum 378:229 >.66 (exudative) +Protein pleural:serum 3.3:6.5 >0.5 (exudative) Treatment: - Discontinued azithromycin, Zosyn and vancomycin - IV levofloxacin (06/01- 06/07) completed 8d course, discontinued -IV cefepime started 06/13 1 g every 8 hours - Monitor a.m. CBC - Wean oxygen as tolerated - Follow up repeat pleural studies and cytology? - lasix 40 qday #SURYA -Hemoglobin 12.4 -Iron studies showed low iron and iron saturation, ferritin and TIBC within normal limits Treatment: -No active treatment at this time -Consider starting on iron once infection cleared ? ? #HAGMA, resolved -ordered bicitra 30ml bid- stopped Health maintenance: Diet: cardiac DVT prophylaxis: Heparin drip Aguilar: None Lines: PIV CODE STATUS: Full This case was discussed with my attending physician, Dr. Fowler, and senior resident, Dr Perez. Even though this this note was carefully revised there may still be minor errors in boiler house inspector due to voice recognition software. Jozef Crisostomo, DO PGY I Senior Resident Attestation: Overnight, patient's oxygen requirement decreased to 8 L, but later on his oxygen requirement increased around this morning, and as his clonazepam had fell off, it was suspected to be he was anxious, and clonazepam 0.25 mg twice daily was again started. We will continue to taper down his oxygen requirement as tolerated. airport utility worker mentioned that he will be appropriate for hospice if his oxygen requirement is less than 6 L. I discussed with and supervised the test engineering intern physician involved in the care of this patient. I personally saw and examined the patient and discussed the assessment and plan with the entire medicine team, including my attending. I agree with the assessment and plan as documented above. Gerber Perez MD PGY3 Internal Medicine Attending Provider Attestation/Addendum Patient was seen and examined, he has not shown improvement clinically. His CO2 is tratnding lower at 17.7. No fever. Level of alertness is the same, he is confused, delusional. He has underlyung schizophrenia on top of his multiple medical issues. Needs goals of care discussion,
--- NOTE | 2025-06-16 15:24 | PC.SS ---
Rounding Note: Patient remains on high flow oxygen. Receiving IV antibiotics.
[2025-06-16] MEDS: MIDODRINE 5 MG TABLET 15 MG PO ×2 (15:54→21:00)
[2025-06-16] MEDS: MELATONIN 3 MG TABLET 6 MG PO (20:54)
[2025-06-17] VITALS (21 sets, daily range): BP systolic 71–97; BP diastolic 57–72; PULSE 88–102; RESP 12–33; TEMP 35.9–36.2; O2SAT 86–97; BMI 18.7
[2025-06-17] MEDS: LEVALBUTEROL RT 1.25 MG/0.5 ML NEBU INH ×6 (02:57→22:23)
[2025-06-17] MEDS: IPRATROPIUM RT 0.5 MG/ 2.5 ML NEBU INH ×6 (02:57→22:24)
[2025-06-17] MEDS: Heparin/D5w 25K 250 ML Ivpb 25,000 UNIT/250 ML BAG 14.397 UNIT IV ×2 (03:45→22:09)
[2025-06-17 05:51] LABS: Basophils # (Auto) 0.1 Thou/mm3 (0.0-0.2); Basophils % (Auto) 0 % (0-2.5); Eosinophils # (Auto) 0.0 Thou/mm3 (0.0-0.5); Eosinophils % (Auto) 0 % (0-10); Hematocrit 38.8 % (41.0-53.0); Hemoglobin 12.0 g/dL (13.5-16.0); Immature Granulocytes Auto 1.39 Thou/mm3 (0.00-0.00); Lymphocytes # (Auto) 0.9 Thou/mm3 (1.0-4.8); Lymphocytes % (Auto) 3 % (10-50); Mean Corpuscular HGB Conc 30.9 g/dl (31.0-37.0); Mean Corpuscular Hemoglobin 26.5 pg (25.0-35.0); Mean Corpuscular Volume 86 fL (80-100); Monocytes # (Auto) 1.4 Thou/mm3 (0.0-0.8); Monocytes % (Auto) 5 % (0-12); Neutrophils # (Auto) 23.8 Thou/mm3 (1.8-7.7); Neutrophils % (Auto) 87 % (37-80); Nucleated Red Blood Cell # 0.26 Thou/mm3 (0.00-0.00); Nucleated Red Blood Cell % 1 /100 WBC (0); Platelet Count 81 Thou/mm3 (140-440); RDW Standard Deviation 66.1 fL (35.1-43.9); Red Blood Count 4.52 Miln/mm3 (4.50-5.90); White Blood Count 27.5 Thou/mm3 (3.8-10.6)
[2025-06-17] MEDS: MIDODRINE 5 MG TABLET 15 MG PO ×3 (05:54→21:59)
[2025-06-17] MEDS: LACTULOSE SYRUP 20 GM/30 ML UDC 30 GM PO ×3 (05:55→21:58)
[2025-06-17] MEDS: CEFEPIME INJ 2 GM in SODIUM CHLORIDE 0.9% (Popper) 50 ML IV ×3 (05:56→21:58)
[2025-06-17 06:39] LABS: Alanine Aminotransferase 41 U/L (10-49); Albumin, Serum 3.3 gm/dL (3.4-4.8); Albumin/Globulin Ratio 0.9 (1.2-2.2); Alkaline Phosphatase 85 U/L (46-116); Anion Gap 14 (7-16); Aspartate Amino Transferase 43 U/L (0-34); BUN/Creatinine Ratio 31 Ratio (12-20); Bilirubin,Total 2.1 mg/dL (0.3-1.2); Blood Urea Nitrogen 40 mg/dL (9-23); Calcium 9.8 mg/dL (8.3-10.6); Calcium (Corrected) 10.4 mg/dL (8.5-10.1); Carbon Dioxide 20.3 mMol/L (20.0-31.0); Chloride 98 mMol/L (98-107); Creatinine (Component) 1.3 mg/dL (0.6-1.3); Estimated Creatinine Clearance 52.2 mL/min (>60); Globulin 3.6 gm/dL (2.3-3.5); Glucose 105 mg/dL (74-106); Magnesium 2.5 mg/dL (1.6-2.6); Osmolality,Calculated 274 (275-295); Phosphorous 3.6 mg/dL (2.4-5.1); Potassium 3.6 mMol/L (3.4-5.1); Sodium 132 mMol/L (136-145); Total Protein 6.9 gm/dL (5.7-8.2); eGFR > 60 See Note
[2025-06-17 08:28] LABS: Partial Thromboplastin Time 64.6 Seconds (22.0-36.0)
[2025-06-17] MEDS: SPIRONOLACTONE 25 MG TABLET PO (08:28)
[2025-06-17] MEDS: NICOTINE PATCH 21 MG/24 HR PATCH.TD24 TOP (08:28)
[2025-06-17] MEDS: PANTOPRAZOLE 40 MG TABLET PO (08:28)
[2025-06-17] MEDS: SODIUM CHLORIDE 0.9% 500 ML 500 ML 999 ML IV (11:24)
--- NOTE | 2025-06-17 11:38 | ESPR_ITS ---
Documentation for date of: 06/17/25 Subjective Subjective Interval history: Patient was seen and examined at bedside. No acute events took place overnight. Patient spent the night in high anxiety and could sleep hardly. Denies SOB, pain/aches, fevers.? Patient agitated, and makes constant demands on staff members. Seroquel 25mg changed to HS, as patient was drowsy during the day. VSS BP 92/72, RR 22, satting 94% on 9 L via NC 2BM, WBC 27.5/24.6, Cr 1.3 (0.7-0.9 on admission), Na 132, cCa 10.4, BUN 40 (spironolactone?) ABG pH 7.51, pCO2 26, bicarb 20, O2 sat 95% (hyperventilation) Exam Vital Signs Temp Pulse Resp BP Pulse Ox O2 Del Method O2 Flow Rate 97.1 F 99 22 H 89/58 L 91 L High Flow Nasal Cannula 9 06/17/25 08:00 06/17/25 10:54 06/17/25 10:54 06/17/25 08:28 06/17/25 10:54 06/17/25 08:00 06/17/25 10:54 FiO2 65 06/17/25 08:00 Narrative Exam General: Awake and in no acute distress; alert. moderately anxious, and agitated HEENT: PERRLA. Normocephalic, atraumatic, mucous membranes moist. Heart: Regular rate and rhythm, normal S1 and S2, no murmurs appreciated. Lungs: coarse breath and crackles sounds Rt lower lobe zone. Present pleuritic chest pain. Improved and clearer lung sounds b/l. Abdomen: Mild ascites. Abdomen: Soft, mildly distended, nontender, positive bowel sounds. No guarding or rebound tenderness. Mild ascites. : Aguilar in place. Large left inguinal mass, no discoloration or tenderness. Neurologic: Alert and oriented x3, no gross neurological deficit, and patient able to move all 4 extremities. Extremities: 2+ pitting b/l edema extending up to knees. Skin: No rash or ecchymoses. Objective Labs 06/18/25 05:46 06/18/25 05:46 Labs: Laboratory Results - last 24 hr 06/17/25 06/17/25 05:16 07:46 WBC 27.5 H RBC 4.52 Hgb 12.0 L Hct 38.8 L MCV 86 MCH 26.5 MCHC 30.9 L RDW Std Deviation 66.1 H Plt Count 81 L Neut % (Auto) 87 H Lymph % (Auto) 3 L Gregory % (Auto) 5 Eos % (Auto) 0 Baso % (Auto) 0 Neut # (Auto) 23.8 H Lymph # (Auto) 0.9 L Gregory # (Auto) 1.4 H Eos # (Auto) 0.0 Baso # (Auto) 0.1 Immature Gran # (Auto) 1.39 H Absolute Nucleated RBC 0.26 H Immature Gran % 5 H Nucleated RBC % 1 H APTT 64.6 H Sodium 132 L Potassium 3.6 Chloride 98 Carbon Dioxide 20.3 Anion Gap 14 BUN 40 H Creatinine 1.3 Estim Creat Clear Calc 52.2 L eGFR > 60 BUN/Creatinine Ratio 31 H Glucose 105 Calculated Osmolality 274 L Calcium 9.8 Corrected Calcium 10.4 H Phosphorus 3.6 Magnesium 2.5 Total Bilirubin 2.1 H AST 43 H ALT 41 Alkaline Phosphatase 85 Total Protein 6.9 Albumin 3.3 L Globulin 3.6 H Albumin/Globulin Ratio 0.9 L ABG Interpretation ABG results: 05/29/25 05/31/25 05/31/25 05:33 10:53 17:16 ABG pH 7.38 7.30 L 7.52 H D ABG pCO2 24 L 33 28 L ABG pO2 57 L* 125 H D 50 L* D ABG HCO3 14 L 16 L 23 ABG O2 Saturation 87 L 99 H 88 L ABG Base Excess -9 L -9 L 1 05/31/25 06/01/25 06/03/25 23:51 05:01 20:42 ABG pH 7.49 H 7.53 H 7.54 H ABG pCO2 29 L 27 L 26 L ABG pO2 57 L* 51 L* 60 L ABG HCO3 22 23 22 ABG O2 Saturation 91 88 L 88 L ABG Base Excess 0 1 0 06/04/25 06/06/25 06/15/25 10:17 07:58 13:20 ABG pH 7.54 H 7.50 H 7.51 H ABG pCO2 26 L 24 L 26 L ABG pO2 55 L* 50 L* 67 L ABG HCO3 22 19 L 20 ABG O2 Saturation 91 87 L 95 ABG Base Excess 1 -3 -1 Quality Measures Quality Measures VTE prophylaxis Assessment & Plan Assessment Current Active Medications: Generic Name Dose Route Start Last Admin Trade Name Freq PRN Reason Stop Dose Admin Acetaminophen 325 mg 05/29/25 12:07 06/15/25 01:21 Acetaminophen 325 Mg Tablet PO 06/28/25 12:06 325 mg Q6H PRN Administration Fever >101.5, Pain 1-3 Albuterol/Ipratropium 3 ml 05/29/25 12:07 06/14/25 13:25 Albuterol/Ipratropium (Duoneb) Rt Becky 3 Ml Nebu INH 06/28/25 12:06 3 ml Q2HR PRN Administration SHORTNESS OF BREATH OR WHEEZE Clonazepam 0.25 mg 06/16/25 10:30 06/17/25 08:28 Clonazepam 0.5 Mg Tablet PO 06/21/25 10:29 0.25 mg BID COTY Administration Haloperidol Lactate 2.5 mg 06/10/25 07:52 Haloperidol Lact Inj 5 Mg/Ml Vial IV X1 PRN Give before procedure Protocol Heparin Sodium/Dextrose 25,000 unit in 250 mls @ 12.957 mls/hr 06/11/25 17:45 06/17/25 03:45 Heparin In D5w Ivpb IV 06/25/25 17:44 20 units/kg/hr .[id number] COTY 14.397 mls/hr Protocol Administration 18 UNITS/KG/HR Cefepime HCl 2 gm/ Sodium 50 mls @ 100 mls/hr 06/14/25 22:00 06/17/25 05:56 Chloride IV 06/20/25 08:29 100 mls/hr Q8HR COTY Administration Sodium Chloride 500 mls @ 999 mls/hr 06/17/25 11:16 06/17/25 11:24 Ns IV 06/17/25 11:46 999 mls/hr .Q31M ONE Administration Ipratropium [place] 0.5 mg 06/04/25 19:00 06/17/25 10:54 Ipratropium Rt 0.5 Mg/ 2.5 Ml Nebu INH 07/04/25 18:59 0.5 mg Q4HRRT COTY Administration Lactulose 30 gm 06/15/25 14:00 06/17/25 05:55 Lactulose Syrup 20 Gm/30 Ml Udc PO 07/15/25 13:59 30 gm TID COTY Administration Protocol Levalbuterol HCl 1.25 mg 06/04/25 19:00 06/17/25 10:54 Levalbuterol Rt 1.25 Mg/0.5 Ml Nebu INH 07/04/25 18:59 1.25 mg Q4HRRT COTY Administration Melatonin 6 mg 06/15/25 21:00 06/16/25 20:54 Melatonin 3 Mg Tablet PO 07/15/25 20:59 6 mg HS COTY Administration Midodrine 15 mg 06/04/25 10:20 06/17/25 05:54 Midodrine 5 Mg Tablet PO 07/04/25 10:19 15 mg TID COTY Administration Nicotine 21 mg 05/29/25 12:15 06/17/25 08:28 Nicotine Patch 21 Mg/24 Hr Patch.Td24 TOP 06/28/25 12:14 21 mg QDAY COTY Administration Ondansetron HCl 4 mg 05/29/25 12:07 Ondansetron Inj 2 Mg/Ml Inj 2 Ml IVP 06/28/25 12:06 Q6H PRN NAUSEA OR VOMITING Protocol Pantoprazole Sodium 40 mg 06/08/25 09:00 06/17/25 08:28 Pantoprazole 40 Mg Tablet PO 06/28/25 12:14 40 mg QDAY COTY Administration Quetiapine Fumarate 25 mg 06/17/25 21:00 Quetiapine Fumarate 25 Mg Tablet PO 07/17/25 20:59 HS COTY Sodium Chloride 3 ml 05/31/25 10:52 06/12/25 02:33 Sodium Chloride Rt Becky 0.9% 3 Ml Nebu INH 06/30/25 10:51 3 ml PRN PRN Administration SOLN Spironolactone 25 mg 06/15/25 09:00 06/17/25 08:28 Spironolactone 25 Mg Tablet PO 07/15/25 08:59 25 mg QDAY COTY Administration Plan Patient is a 64 year old male with past medical history of schizophrenia, COPD on supplemental home oxygen, chronic active smoker greater than 40 pack years, and status post right inguinal hernia repair in 2018 who presented to ED on 05/29/25 for shortness of breath. Patient was admitted telemetry for acute on chronic hypoxic respiratory failure, pleural effusion, pneumonia and pulmonary emboli, upgraded to ICU on 05/31 for worsening acute on chronic respiratory distress. Downgraded back to telemetry as patient has stabilized and tolerating high flow. 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 -S/p thoracentesis, -750 cc straw colored fluid -Per lights criteria, fluid is exudative, likely secondary to malignancy - Pleural fluid culture 05/29 grew Bacillus (likely cereus) - CT head with and without contrast showed no cranial masses + recent thoracentesis on 06/01 with 1.2 L drained of straw fluid, Light's criteria positive for exudative effusion. + Repeat thoracentesis (06/04) : 1.5L of strawberry colored fluid drained from the Rt lung 06/04: patient had increased work of breathing and respiratory rate was increased. CXR showed fluid reaccumulation and bedside US revealed right lung fluid pockets that were easily accessible. 1.5L of fluid was successfully drained from R lung. FUP CXR showed apical pnuemothorax. Fluid re-accumulation most likely secondary to lung mass c/f malignancy pending lung bx +LDH Pleural:serum 378:229 >.66 (exudative) +Protein pleural:serum 3.3:6.5 >0.5 (exudative) 06/09: CTA shows pulmonary artery emboli in RLL arterial branches and filling defect in LLL branches. Large pulmonary mass in RUL. Lt lung pneumonia. Large b/l pleural effusions. Cirrhosis. PT 13.4 and INR 1.3, APTT 27.4. 06/10: Review of the CTA by IR pointed out to air bronchograms, inconsistent with lung tumor. Cytology results from latest thoracentesis also showed very few atypical epithelial cells, not enough to rule cancer in definitively. 06/11: s/p US guided b/l thoracentesis with removal of 1.5L from the Rt lung and .5L from the Lt. 06/12: Rapid response was called for acute hypotension. Had to hold diuretics and give IV albumin. Consulted pulmonology who recommended treatment of pneumonia and optimize volume status. No PleurX recommended. May need rehab and biopsy of the lung after the end of treatment. 06/13: Blood pressure remains borderline. Added cefepime IV for possible nonhealing pneumonia in the setting of immune compression from his liver cirrhosis 06/15: Patient was weaned down to 30L via oxymask + pH 7.51, pCO2 26, PaO2 67, bicarb 20, O2 sat 95% + Cocci IgM (-) 06/16: CXR: Bilateral pneumonia.? Large pulmonary consolidation RU lobe. Moderate Rt pleural effusion Pleural fluid analysis T protein effusions:serum 2.3/7 <0.5 =transudative ? Plan: -Cefepime IV 2g Q8h (06/13- ) for possible non-healing pneumonia iso immunosuppression from liver cirrhosis. -Given NS IVB 0.5L for soft BP -spironolactone PO 25mg iso stable BP and kidney fx -Physiotherapist to try and titrate down oxygen requirements in preparation -HOLD lasix 80mg qday? -encourage incentive spirometry use.? - Per pathology, atypical epitheial cells, but not enough for definitive diagnosis of maligancy; they suggest biopsy. -repeat CT scan of lungs in 6mo to monitor for evolution of the Rt middle lobe consolidation #Bilateral pulmonary embolisms Likely secondary to hypercoagable state in setting of malignancy - Presented with shortness of breath requiring 10 L supplemental oxygen at home. - CTA showed bilateral pulmonary arterial emboli - D-dimer elevated? ? Plan: -Heparin GTT based on PE protocol -Monitor for bleed -Cardiology consulted, appreciate recommendations? -CT angio chest for reevaluation of previous PE #Cirrhosis #Transaminitis (improving) #Hyperbilirubinemia #Anasarca -patient consumed moderate amount of alcohol for many years -Has elevated INR and thrombocytopenia, indicative of chronic pathology -On exam, mild ascites and anasarca, improved s/p diuresis? -AST 436 -> 41 - ALT 398 -> 105 Hepatitis panel non reactive? Plan: - Lactulose PO 30g TID lowered as patient was having diarrhea with >5BM - Restarted spironolactone PO 25mg iso stable BP and kidney fx -spironolactone 50mg x1 (06/16) - rifaximin 550 mg BID? - Midodrine 15 TID? - Recommend patient follow up outpatient with hepatology/GI #History of schizophrenia #Agitation/Anxiety? #Hospital Acquired Delirium - Per patient, he had been diagnosed years ago by PCP, now retired - Not on any psych medication - Patient becoming restless, and agitated due to his prolonged hospital course. - Patient was drowsy through the day after receiving Seroquel in AM. Treatment: - Seroquel 25mg HS - Klonipin 0.25mg bid? ? - Hydroxyzine as needed for agitation? - Follow-up with family or PCP regarding diagnosis #COPD exacerbation Likely secondary to pneumonia - Chronic smoking history - Presented with shortness of breath requiring 10 L supplemental oxygen at home. Per chart review patient usually uses a liters at home per brother.? - Used rescue inhaler use for the past 2 weeks prior to admission - Lactic 9.0, Pro-Antony 1.33, WBC 14 with neutrophil dominance - CT showed bilateral pneumonia and left upper lobe and right lower lobe - Treated with azithromycin, Zosyn and Vancomycin (05/29?06/01) +Patient takes breaths between words and has elevated respiratory rate that worsens with Bipap due to increased anxiety. ? Treatment: - Prednisone PO 40mg Qday (completed 5d course 06/07 -04/2025) - IV levofloxacin (06/01- 06/07) completed 8d course, discontinued - Levalbuterol/ipratropium every 6 hoursla - DuoNebs as needed - Wean oxygen as tolerated - Midodrine 15 TID to for SBP <90 ? #YASMIN, resolved Creatinine 1.3 ->1.2 ->1.1 at baseline Cr range of .8 - 1.0 eGFR >60, BUN 32, BUN/Cr 24 ->27. prerenal azotemia YASMIN likely 2/2 hypovolemia. ? will hold spirinolactone and lasix - Daily renal panel to trend BUN, Cr, and electrolytes. ? Renally dose meds, avoid overdiuresis, and nephrotoxins. ? #Pneumonia Likely secondary to gram-negative versus gram-positive organisms (completed treatment for) #Parapneumonic effusion - Presented with worsening breathing and increased oxygen requirements. No fevers at home. - Likely infectious in setting of Bacillus in pleural fluid - WBC 14 -> 16 -> 15 - Influenza A&B, COVID negative - UA clean? - CT showed bilateral pneumonia and left upper lobe and right lower lobe - Sputum Gram stain showed rare WBCs, 1+ GPC, 1+ GNR - Pleural fluid culture 05/29 grew Bacillus (likely cereus) +LDH Pleural:serum 378:229 >.66 (exudative) +Protein pleural:serum 3.3:6.5 >0.5 (exudative) Treatment: - Discontinued azithromycin, Zosyn and vancomycin - IV levofloxacin (06/01- 06/07) completed 8d course, discontinued -IV cefepime started 06/13 1 g every 8 hours - Monitor a.m. CBC - Wean oxygen as tolerated - Follow up repeat pleural studies and cytology? - lasix 40 qday #SURYA -Hemoglobin 12.4 -Iron studies showed low iron and iron saturation, ferritin and TIBC within normal limits Treatment: -No active treatment at this time -Consider starting on iron once infection cleared ? ? #HAGMA, resolved -ordered bicitra 30ml bid- stopped Health maintenance: Diet: cardiac DVT prophylaxis: Heparin drip Aguilar: None Lines: PIV CODE STATUS: Full This case was discussed with my attending physician, Dr. Sultana, and senior resident, Dr Perez. Even though this this note was carefully revised there may still be minor errors in etl analyst due to voice recognition software. Jozef Crisostomo, DO PGY I Senior Resident Attestation: The patient was saturating on 9 L NC, but MEDICAL GENETICS DIRECTOR was called for hypotension, 500 cc bolus IV fluid was given with elevation of MAP of greater than 65. We will continue to taper down his oxygen requirement, and he will be sent to hospice once his oxygen requirement is less than 6 L. I discussed with and supervised the customer marketing intern physician involved in the care of this patient. I personally saw and examined the patient and discussed the assessment and plan with the entire medicine team, including my attending. I agree with the assessment and plan as documented above. Gerber Perez MD PGY3 Internal Medicine Attending Provider Attestation/Addendum I have discussed and was present for the essential components of the history, physical examination, diagnosis, and treatment plan with the resident. I agree with the patient's care as documented by the resident and amended herein by me. Per Sultana DO. Although this document has been carefully reviewed, there may still be some phonetic and other typographical errors. These errors are purely grammatical due to imperfections in the software program and should not be construed in any way to compromise the substance of the patient's medical care during this visit.
[2025-06-17] MEDS: MELATONIN 3 MG TABLET 6 MG PO (20:07)
[2025-06-18] VITALS (59 sets, daily range): BP systolic 63–98; BP diastolic 42–76; PULSE 73–98; RESP 13–58; TEMP 35.7–36.6; O2SAT 83–98; BMI 21.1
[2025-06-18] MEDS: LEVALBUTEROL RT 1.25 MG/0.5 ML NEBU INH ×5 (02:56→23:08)
[2025-06-18] MEDS: IPRATROPIUM RT 0.5 MG/ 2.5 ML NEBU INH ×5 (02:56→23:08)
[2025-06-18] MEDS: MIDODRINE 5 MG TABLET 15 MG PO ×3 (05:28→21:44)
[2025-06-18] MEDS: LACTULOSE SYRUP 20 GM/30 ML UDC 30 GM PO ×3 (05:28→21:46)
[2025-06-18] MEDS: CEFEPIME INJ 2 GM in SODIUM CHLORIDE 0.9% (Popper) 50 ML IV ×3 (05:28→21:37)
[2025-06-18 06:23] LABS: Basophils # (Auto) 0.1 Thou/mm3 (0.0-0.2); Basophils % (Auto) 0 % (0-2.5); Eosinophils # (Auto) 0.0 Thou/mm3 (0.0-0.5); Eosinophils % (Auto) 0 % (0-10); Hematocrit 37.1 % (41.0-53.0); Hemoglobin 11.7 g/dL (13.5-16.0); Immature Granulocytes Auto 1.70 Thou/mm3 (0.00-0.00); Lymphocytes # (Auto) 0.9 Thou/mm3 (1.0-4.8); Lymphocytes % (Auto) 3 % (10-50); Mean Corpuscular HGB Conc 31.5 g/dl (31.0-37.0); Mean Corpuscular Hemoglobin 26.9 pg (25.0-35.0); Mean Corpuscular Volume 85 fL (80-100); Monocytes # (Auto) 1.3 Thou/mm3 (0.0-0.8); Monocytes % (Auto) 5 % (0-12); Neutrophils # (Auto) 25.1 Thou/mm3 (1.8-7.7); Neutrophils % (Auto) 87 % (37-80); Nucleated Red Blood Cell # 0.12 Thou/mm3 (0.00-0.00); Nucleated Red Blood Cell % 0 /100 WBC (0); Platelet Count 91 Thou/mm3 (140-440); RDW Standard Deviation 66.8 fL (35.1-43.9); Red Blood Count 4.35 Miln/mm3 (4.50-5.90); White Blood Count 29.1 Thou/mm3 (3.8-10.6)
[2025-06-18 06:52] LABS: Alanine Aminotransferase 43 U/L (10-49); Albumin, Serum 3.2 gm/dL (3.4-4.8); Albumin/Globulin Ratio 0.9 (1.2-2.2); Alkaline Phosphatase 84 U/L (46-116); Anion Gap 18 (7-16); Aspartate Amino Transferase 43 U/L (0-34); BUN/Creatinine Ratio 31 Ratio (12-20); Bilirubin,Total 1.8 mg/dL (0.3-1.2); Blood Urea Nitrogen 44 mg/dL (9-23); Calcium 9.6 mg/dL (8.3-10.6); Calcium (Corrected) 10.2 mg/dL (8.5-10.1); Carbon Dioxide 17.4 mMol/L (20.0-31.0); Chloride 99 mMol/L (98-107); Creatinine (Component) 1.4 mg/dL (0.6-1.3); Estimated Creatinine Clearance 54.7 mL/min (>60); Globulin 3.7 gm/dL (2.3-3.5); Glucose 109 mg/dL (74-106); Magnesium 2.6 mg/dL (1.6-2.6); Osmolality,Calculated 280 (275-295); Phosphorous 3.2 mg/dL (2.4-5.1); Potassium 3.6 mMol/L (3.4-5.1); Sodium 134 mMol/L (136-145); Total Protein 6.9 gm/dL (5.7-8.2); eGFR 57 See Note
[2025-06-18 06:54] LABS: Partial Thromboplastin Time 106.1 Seconds (22.0-36.0)
[2025-06-18] MEDS: NICOTINE PATCH 21 MG/24 HR PATCH.TD24 TOP (08:14)
[2025-06-18] MEDS: ALBUMIN HUMAN-KJDA 25% IVPB 25 GM/100 ML BTL IV (08:15)
[2025-06-18] MEDS: PANTOPRAZOLE 40 MG TABLET PO (08:16)
[2025-06-18] MEDS: CITRIC ACID/SODIUM CITR 15 ML UDC (BICITRA) 30 ML PO ×2 (08:29→20:30)
--- NOTE | 2025-06-18 08:58 | PC.SS ---
Follow up note: Pt is currently on high flow O2, 30 liters and bipap at night. SS attempted to contact his son, Oliverio Yost, phone# [phone] but was only able to leave voicemail. SS also attempted to contact his brother, Boy Yost, phone# [phone] but call was busy.
[2025-06-18 09:33] LABS: Base Excess, Venous -4 (-3-3); O2 Saturation, Venous 77 % (96-97); PCO2, Venous 33 mmHg (36-56); PO2, Venous 45 mmHg (15-58); pH, Venous 7.39 (7.33-7.66)
--- NOTE | 2025-06-18 10:10 | ESPR_ITS ---
Documentation for date of: 06/18/25 Subjective Subjective Interval history: Patient was seen and examined at bedside. No acute events took place overnight. Patient spent the night in high anxiety and could sleep hardly. According to nurse, patient slept until 3 AM after which, and kept calling for help and due to relentless anxiety, became short of breath and had to be upgraded on 2 high flow nasal cannula 30 L 100%. BP 88/60 at 7 AM, RR 36, O2 88% HFNC 1BM, WBC 29.1, aPTT 106.1 (heparin hold) spirinolactone hold, albumin 25g Qday, and midodrine 15mg TID bicarb 17.4 (metabolic acidotic compensation), AG 18 (improved hyponatremia), Cr 1.4 (1-1.2), BUN 44, ABG pH 7.51, pCO2 26, bicarb 20, O2 sat 95% (hyperventilation) Exam Vital Signs Temp Pulse Resp BP Pulse Ox O2 Del Method O2 Flow Rate 97.2 F 94 21 H 92/62 91 L High Flow Nasal Cannula 30 06/18/25 08:00 06/18/25 08:00 06/18/25 08:00 06/18/25 08:00 06/18/25 08:00 06/18/25 08:00 06/18/25 08:00 FiO2 100 06/18/25 08:00 Narrative Exam General: Awake and in no acute distress; alert. moderately anxious, and agitated HEENT: PERRLA. Normocephalic, atraumatic, mucous membranes moist. Heart: Regular rate and rhythm, normal S1 and S2, no murmurs appreciated. Lungs: coarse breath and crackles sounds Rt lower lobe zone. Present pleuritic chest pain. Improved and clearer lung sounds b/l. Abdomen: Mild ascites. Abdomen: Soft, mildly distended, nontender, positive bowel sounds. No guarding or rebound tenderness. Mild ascites. : Aguilar in place. Large left inguinal mass, no discoloration or tenderness. Neurologic: Alert and oriented x3, no gross neurological deficit, and patient able to move all 4 extremities. Extremities: 2+ pitting b/l edema extending up to knees. Skin: No rash or ecchymoses. Objective Labs 06/19/25 05:00 06/19/25 05:00 Labs: Laboratory Results - last 24 hr 12/17/25 05:46 WBC 29.1 H RBC 4.35 L Hgb 11.7 L Hct 37.1 L MCV 85 MCH 26.9 MCHC 31.5 RDW Std Deviation 66.8 H Plt Count 91 L Neut % (Auto) 87 H Lymph % (Auto) 3 L [place] % (Auto) 5 Eos % (Auto) 0 Baso % (Auto) 0 Neut # (Auto) 25.1 H Lymph # (Auto) 0.9 L [place] # (Auto) 1.3 H Eos # (Auto) 0.0 Baso # (Auto) 0.1 Immature Gran # (Auto) 1.70 H Absolute Nucleated RBC 0.12 H Immature Gran % 6 H Nucleated RBC % 0 APTT 106.1 H* D Sodium 134 L Potassium 3.6 Chloride 99 Carbon Dioxide 17.4 L Anion Gap 18 H BUN 44 H Creatinine 1.4 H Estim Creat Clear Calc 54.7 L eGFR 57 L BUN/Creatinine Ratio 31 H Glucose 109 H Calculated Osmolality 280 Calcium 9.6 Corrected Calcium 10.2 H Phosphorus 3.2 Magnesium 2.6 Total Bilirubin 1.8 H AST 43 H ALT 43 Alkaline Phosphatase 84 Total Protein 6.9 Albumin 3.2 L Globulin 3.7 H Albumin/Globulin Ratio 0.9 L ABG Interpretation ABG results: 05/29/25 05/31/25 05/31/25 05:33 10:53 17:16 ABG pH 7.38 7.30 L 7.52 H D ABG pCO2 24 L 33 28 L ABG pO2 57 L* 125 H D 50 L* D ABG HCO3 14 L 16 L 23 ABG O2 Saturation 87 L 99 H 88 L ABG Base Excess -9 L -9 L 1 05/31/25 06/01/25 06/03/25 23:51 05:01 20:42 ABG pH 7.49 H 7.53 H 7.54 H ABG pCO2 29 L 27 L 26 L ABG pO2 57 L* 51 L* 60 L ABG HCO3 22 23 22 ABG O2 Saturation 91 88 L 88 L ABG Base Excess 0 1 0 06/04/25 06/06/25 06/15/25 10:17 07:58 13:20 ABG pH 7.54 H 7.50 H 7.51 H ABG pCO2 26 L 24 L 26 L ABG pO2 55 L* 50 L* 67 L ABG HCO3 22 19 L 20 ABG O2 Saturation 91 87 L 95 ABG Base Excess 1 -3 -1 Quality Measures Quality Measures VTE prophylaxis Assessment & Plan Assessment Current Active Medications: Generic Name Dose Route Start Last Admin Trade Name Freq PRN Reason Stop Dose Admin Acetaminophen 325 mg 05/29/25 12:07 06/15/25 01:21 Acetaminophen 325 Mg Tablet PO 06/28/25 12:06 325 mg Q6H PRN Administration Fever >101.5, Pain 1-3 Albuterol/Ipratropium 3 ml 05/29/25 12:07 06/14/25 13:25 Albuterol/Ipratropium (Duoneb) Rt Becky 3 Ml Nebu INH 06/28/25 12:06 3 ml Q2HR PRN Administration SHORTNESS OF BREATH OR WHEEZE Citric Acid/Sodium Citrate 30 ml 06/18/25 09:00 06/18/25 08:29 Citric Acid/Sodium Citr 15 Ml Udc (Bicitra) PO 07/18/25 08:59 30 ml BID COTY Administration Clonazepam 0.25 mg 06/16/25 10:30 06/18/25 08:16 Clonazepam 0.5 Mg Tablet PO 06/21/25 10:29 0.25 mg BID COTY Administration Haloperidol Lactate 2.5 mg 06/10/25 07:52 Haloperidol Lact Inj 5 Mg/Ml Vial IV X1 PRN Give before procedure Protocol Heparin Sodium/Dextrose 25,000 unit in 250 mls @ 12.957 mls/hr 06/11/25 17:45 06/18/25 08:04 Heparin In D5w Ivpb IV 06/25/25 17:44 17 units/kg/hr .[id number] COTY 12.237 mls/hr Protocol Titration 18 UNITS/KG/HR Cefepime HCl 2 gm/ Sodium 50 mls @ 100 mls/hr 06/14/25 22:00 06/18/25 05:28 Chloride IV 06/20/25 08:29 100 mls/hr Q8HR COTY Administration Albumin Human 25 gm in 100 mls @ 100 mls/hr 06/18/25 08:00 06/18/25 08:15 Albuminex 25% Ivpb IV 06/21/25 07:59 100 mls/hr QDAY COTY Administration Ipratropium [place] 0.5 mg 06/04/25 19:00 06/18/25 06:22 Ipratropium Rt 0.5 Mg/ 2.5 Ml Nebu INH 07/04/25 18:59 0.5 mg Q4HRRT COTY Administration Lactulose 30 gm 06/15/25 14:00 06/18/25 05:28 Lactulose Syrup 20 Gm/30 Ml Udc PO 07/15/25 13:59 30 gm TID COTY Administration Protocol Levalbuterol HCl 1.25 mg 06/04/25 19:00 06/18/25 06:22 Levalbuterol Rt 1.25 Mg/0.5 Ml Nebu INH 07/04/25 18:59 1.25 mg Q4HRRT COTY Administration Melatonin 6 mg 06/15/25 21:00 06/17/25 20:07 Melatonin 3 Mg Tablet PO 07/15/25 20:59 6 mg HS COTY Administration Midodrine 15 mg 06/04/25 10:20 06/18/25 05:28 Midodrine 5 Mg Tablet PO 07/04/25 10:19 15 mg TID COTY Administration Nicotine 21 mg 05/29/25 12:15 06/18/25 08:14 Nicotine Patch 21 Mg/24 Hr Patch.Td24 TOP 06/28/25 12:14 21 mg QDAY COTY Administration Ondansetron HCl 4 mg 05/29/25 12:07 Ondansetron Inj 2 Mg/Ml Inj 2 Ml IVP 06/28/25 12:06 Q6H PRN NAUSEA OR VOMITING Protocol Pantoprazole Sodium 40 mg 06/08/25 09:00 06/18/25 08:16 Pantoprazole 40 Mg Tablet PO 06/28/25 12:14 40 mg QDAY COTY Administration Quetiapine Fumarate 25 mg 06/17/25 21:00 06/17/25 20:08 Quetiapine Fumarate 25 Mg Tablet PO 07/17/25 20:59 25 mg HS COTY Administration Sodium Chloride 3 ml 05/31/25 10:52 06/12/25 02:33 Sodium Chloride Rt Becky 0.9% 3 Ml Nebu INH 06/30/25 10:51 3 ml PRN PRN Administration SOLN Spironolactone 25 mg 06/15/25 09:00 06/17/25 08:28 Spironolactone 25 Mg Tablet PO 07/15/25 08:59 25 mg On Hold: 06/18/25 07:23 QDAY COTY Administration Plan Patient is a 64 year old male with past medical history of schizophrenia, COPD on supplemental home oxygen, chronic active smoker greater than 40 pack years, and status post right inguinal hernia repair in 2018 who presented to ED on 05/29/25 for shortness of breath. Patient was admitted telemetry for acute on chronic hypoxic respiratory failure, pleural effusion, pneumonia and pulmonary emboli, upgraded to ICU on 05/31 for worsening acute on chronic respiratory distress. Downgraded back to telemetry as patient has stabilized and tolerating high flow. 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 -S/p thoracentesis, -750 cc straw colored fluid -Per lights criteria, fluid is exudative, likely secondary to malignancy - Pleural fluid culture 05/29 grew Bacillus (likely cereus) - CT head with and without contrast showed no cranial masses + recent thoracentesis on 06/01 with 1.2 L drained of straw fluid, Light's criteria positive for exudative effusion. + Repeat thoracentesis (06/04) : 1.5L of strawberry colored fluid drained from the Rt lung 06/04: patient had increased work of breathing and respiratory rate was increased. CXR showed fluid reaccumulation and bedside US revealed right lung fluid pockets that were easily accessible. 1.5L of fluid was successfully drained from R lung. FUP CXR showed apical pnuemothorax. Fluid re-accumulation most likely secondary to lung mass c/f malignancy pending lung bx +LDH Pleural:serum 378:229 >.66 (exudative) +Protein pleural:serum 3.3:6.5 >0.5 (exudative) 06/09: CTA shows pulmonary artery emboli in RLL arterial branches and filling defect in LLL branches. Large pulmonary mass in RUL. Lt lung pneumonia. Large b/l pleural effusions. Cirrhosis. PT 13.4 and INR 1.3, APTT 27.4. 06/10: Review of the CTA by IR pointed out to air bronchograms, inconsistent with lung tumor. Cytology results from latest thoracentesis also showed very few atypical epithelial cells, not enough to rule cancer in definitively. 06/11: s/p US guided b/l thoracentesis with removal of 1.5L from the Rt lung and .5L from the Lt. 06/12: Rapid response was called for acute hypotension. Had to hold diuretics and give IV albumin. Consulted pulmonology who recommended treatment of pneumonia and optimize volume status. No PleurX recommended. May need rehab and biopsy of the lung after the end of treatment. 06/13: Blood pressure remains borderline. Added cefepime IV for possible nonhealing pneumonia in the setting of immune compression from his liver cirrhosis 06/15: Patient was weaned down to 30L via oxymask + pH 7.51, pCO2 26, PaO2 67, bicarb 20, O2 sat 95% + Cocci IgM (-) 06/16: CXR: Bilateral pneumonia.? Large pulmonary consolidation RU lobe. Moderate Rt pleural effusion Pleural fluid analysis T protein effusions:serum 2.3/7 <0.5 =transudative 06/18: LA 5.6 Plan: -ordered beta-hydroxy butyrate. -Cefepime IV 2g Q8h (06/13- ) for possible non-healing pneumonia iso immunosuppression from liver cirrhosis. -Given NS IVB 0.5L for soft BP -spironolactone PO 25mg iso stable BP and kidney fx -Physiotherapist to try and titrate down oxygen requirements in preparation -HOLD lasix 80mg qday? -encourage incentive spirometry use.? - Per pathology, atypical epitheial cells, but not enough for definitive diagnosis of maligancy; they suggest biopsy. -repeat CT scan of lungs in 6mo to monitor for evolution of the Rt middle lobe consolidation #Bilateral pulmonary embolisms Likely secondary to hypercoagable state in setting of malignancy - Presented with shortness of breath requiring 10 L supplemental oxygen at home. - CTA showed bilateral pulmonary arterial emboli - D-dimer elevated? ? Plan: -Heparin GTT based on PE protocol -Monitor for bleed -Cardiology consulted, appreciate recommendations? -CT angio chest for reevaluation of previous PE #Cirrhosis #Transaminitis (improving) #Hyperbilirubinemia #Anasarca -patient consumed moderate amount of alcohol for many years -Has elevated INR and thrombocytopenia, indicative of chronic pathology -On exam, mild ascites and anasarca, improved s/p diuresis? -AST 436 -> 41 - ALT 398 -> 105 Hepatitis panel non reactive? Plan: - Lactulose PO 30g TID lowered as patient was having diarrhea with >5BM - Restarted spironolactone PO 25mg iso stable BP and kidney fx -spironolactone 50mg x1 (06/16) - rifaximin 550 mg BID? - Midodrine 15 TID? - Recommend patient follow up outpatient with hepatology/GI #History of schizophrenia #Agitation/Anxiety? #Hospital Acquired Delirium - Per patient, he had been diagnosed years ago by PCP, now retired - Not on any psych medication - Patient becoming restless, and agitated due to his prolonged hospital course. - Patient was drowsy through the day after receiving Seroquel in AM. Treatment: - Seroquel 25mg HS - Klonipin 0.25mg bid? ? - Hydroxyzine as needed for agitation? - Follow-up with family or PCP regarding diagnosis #COPD exacerbation Likely secondary to pneumonia - Chronic smoking history - Presented with shortness of breath requiring 10 L supplemental oxygen at home. Per chart review patient usually uses a liters at home per brother.? - Used rescue inhaler use for the past 2 weeks prior to admission - Lactic 9.0, Pro-Antony 1.33, WBC 14 with neutrophil dominance - CT showed bilateral pneumonia and left upper lobe and right lower lobe - Treated with azithromycin, Zosyn and Vancomycin (05/29?06/01) +Patient takes breaths between words and has elevated respiratory rate that worsens with Bipap due to increased anxiety. ? Treatment: - Prednisone PO 40mg Qday (completed 5d course 06/07 -04/2025) - IV levofloxacin (06/01- 06/07) completed 8d course, discontinued - Levalbuterol/ipratropium every 6 hoursla - DuoNebs as needed - Wean oxygen as tolerated - Midodrine 15 TID to for SBP <90 ? #YASMIN, resolved Creatinine 1.3 ->1.2 ->1.1 at baseline Cr range of .8 - 1.0 eGFR >60, BUN 32, BUN/Cr 24 ->27. prerenal azotemia YASMIN likely 2/2 hypovolemia. ? will hold spirinolactone and lasix - Daily renal panel to trend BUN, Cr, and electrolytes. ? Renally dose meds, avoid overdiuresis, and nephrotoxins. ? #Pneumonia Likely secondary to gram-negative versus gram-positive organisms (completed treatment for) #Parapneumonic effusion - Presented with worsening breathing and increased oxygen requirements. No fevers at home. - Likely infectious in setting of Bacillus in pleural fluid - WBC 14 -> 16 -> 15 - Influenza A&B, COVID negative - UA clean? - CT showed bilateral pneumonia and left upper lobe and right lower lobe - Sputum Gram stain showed rare WBCs, 1+ GPC, 1+ GNR - Pleural fluid culture 05/29 grew Bacillus (likely cereus) +LDH Pleural:serum 378:229 >.66 (exudative) +Protein pleural:serum 3.3:6.5 >0.5 (exudative) Treatment: - Discontinued azithromycin, Zosyn and vancomycin - IV levofloxacin (06/01- 06/07) completed 8d course, discontinued -IV cefepime started 06/13 1 g every 8 hours - Monitor a.m. CBC - Wean oxygen as tolerated - Follow up repeat pleural studies and cytology? - lasix 40 qday #SURYA -Hemoglobin 12.4 -Iron studies showed low iron and iron saturation, ferritin and TIBC within normal limits Treatment: -No active treatment at this time -Consider starting on iron once infection cleared ? ? #HAGMA, resolved -ordered bicitra 30ml bid- stopped Health maintenance: Diet: cardiac DVT prophylaxis: Heparin drip Aguilar: None Lines: PIV CODE STATUS: Full This case was discussed with my attending physician, Dr. Sultana, and senior resident, Dr Perez. Even though this this note was carefully revised there may still be minor errors in neurocritical care physician due to voice recognition software. Jozef Crisostomo, DO PGY I Senior Resident Attestation: The patient was agitated and anxious overnight, and his oxygen saturation went down, and was placed back on high flow nasal cannula. His white count continues to trend up, this morning it was 29.1, and even though he is ready to go with hospice, his oxygen requirement is greater than 6 L, currently on high flow nasal cannula, and would not be accepted by hospice. Due to metabolic acidosis, lactic acid was checked, and came back 5.6, we will continue to trend lactic acid, and BHB was 0.4. His brother was updated about his condition. I discussed with and supervised the program management intern physician involved in the care of this patient. I personally saw and examined the patient and discussed the assessment and plan with the entire medicine team, including my attending. I agree with the assessment and plan as documented above. Gerber Perez MD PGY3 Internal Medicine Attending Provider Attestation/Addendum I have discussed and was present for the essential components of the history, physical examination, diagnosis, and treatment plan with the resident. I agree with the patient's care as documented by the resident and amended herein by me. Per Sultana DO. Although this document has been carefully reviewed, there may still be some phonetic and other typographical errors. These errors are purely grammatical due to imperfections in the software program and should not be construed in any way to compromise the substance of the patient's medical care during this visit.
[2025-06-18 13:42] LABS: Partial Thromboplastin Time 68.9 Seconds (22.0-36.0)
[2025-06-18 13:45] LABS: Lactate (Lactic Acid) 5.6 mMol/L (0.4-2.0)
[2025-06-18 13:59] LABS: Beta Hydroxybutyrate 0.4 mmol/L (<0.6)
[2025-06-18 16:11] LABS: Reflex Lactate? Y
[2025-06-18 16:34] LABS: Lactic Acid, 3 HR 6.5 mMol/L (0.4-2.0)
[2025-06-18] MEDS: Heparin/D5w 25K 250 ML Ivpb 25,000 UNIT/250 ML BAG 12.237 UNIT IV (18:25)
[2025-06-18 19:28] LABS: Partial Thromboplastin Time 74.8 Seconds (22.0-36.0)
[2025-06-18] MEDS: MELATONIN 3 MG TABLET 6 MG PO (20:30)
[2025-06-18 22:04] LABS: Base Excess, Venous -4 (-3-3); O2 Saturation, Venous 60 % (96-97); PCO2, Venous 32 mmHg (36-56); PO2, Venous 37 mmHg (15-58); pH, Venous 7.41 (7.33-7.66)
[2025-06-18 22:06] LABS: Lactate (Lactic Acid) 7.4 mMol/L (0.4-2.0)
--- NOTE | 2025-06-18 22:20 | EVENTNT_ITS ---
<Statement entered by Alban Zuleta, DO - 06/19/25 00:53> Pt was seen and examined by me at bedside. Currently hypotensive and lethargic. On exam, he has bilateral rales and is on maximum settings of HFNC. No use of accessory respiratory muscles. I agree with the resident's plan of administering IVF bolus in addition to albumin and transferring to the ICU for close monito ring. Family were updated over the phone and would like to continue with aggressive measures and FULL CODE Documentation for date of: 06/18/25 Event Note Event Note: Rapid Response Room:?264 Time:?2218 Reason for Call:?Acute change in consciousness and respiratory distress Patient presentation:?Patient appeared to be in acute respiratory distress with increased work of breathing and patient noted to be less responsive Events:? Response was called at 2218 as the patient has had low MAP about 30 minutes prior and now has an acute change in his respiratory status and responsiveness. Patient was found to have a respiratory rate of 58 saturating at 94% on high flow nasal cannula running at 40 L and 100% FiO2. Given the patient's low MAP previously, LR bolus and albumin was ordered. Because of the patient's respiratory rate, work of breathing, and oxygen requirements, the decision was made to upgrade the patient to the ICU for urgent intubation. The patient's brother, Boy, was called at [phone], who stated that he would be making the medical decisions for the patient if he were unable to. The patient's brother stated that he would want everything done for the patient, and so patient remain full code. Just as the ICU team was about to intubate, the patient became significantly more alert, work of breathing decreased, and respiratory rate decreased. ICU team decided to hold off on intubation for now, but because of the patient's soft MAP and the patient's respiratory status (respiratory rate in the 30s and O2 saturation 92% on high flow nasal cannula 40 L and 100% FiO2), there is a concern that the patient may need intubation and possible vasopressors later in the evening, hence the patient will remain in the ICU until the ICU team deems the patient stable for downgrade. New orders:?LR bolus 500 cc, albumin 12.5 g x 1, discontinued patient's nightly Seroquel, and patient upgraded to ICU Patient was discussed with the attending, Dr. Merlyn Palma, PGY-1
[2025-06-18 22:30] LABS: Albumin, Serum 3.0 gm/dL (3.4-4.8); Anion Gap 15 (7-16); BUN/Creatinine Ratio 31 Ratio (12-20); Blood Urea Nitrogen 49 mg/dL (9-23); Calcium 9.3 mg/dL (8.3-10.6); Calcium (Corrected) 10.1 mg/dL (8.5-10.1); Carbon Dioxide 19.2 mMol/L (20.0-31.0); Chloride 100 mMol/L (98-107); Creatinine (Component) 1.6 mg/dL (0.6-1.3); Estimated Creatinine Clearance 47.8 mL/min (>60); Glucose 145 mg/dL (74-106); Osmolality,Calculated 284 (275-295); Phosphorous 3.6 mg/dL (2.4-5.1); Potassium 3.3 mMol/L (3.4-5.1); Sodium 134 mMol/L (136-145); eGFR 48 See Note
--- NOTE | 2025-06-18 22:40 | XR_ITS ---
EXAMINATION: AP chest single view TECHNIQUE: AP portable semiupright chest single view Date and time: June 18, 2025, 10:50 p.m., comparison June 15, 2025 INDICATIONS: Shortness of breath worsening respiratory status FINDINGS: Again noted severe pneumonia ARDS in the left lung Large pulmonary mass right upper lobe Mild heart failure with enlarged cardiac contour and prominent vascular congestion small to moderate bilateral pleural effusions Prominent osteopenia IMPRESSION: Again noted severe pneumonia ARDS left lung Large pulmonary mass right upper lobe Mild heart failure
--- NOTE | 2025-06-18 22:43 | PD.RESCONSUL ---
HPI Data of Consult Requesting Physician: Mike Sultana DO Admitting Provider: Meri Shetty DO Attending Provider: Mike Sultana DO Primary Care Provider: BC Caraballo Consult Narrative Reason for consult: hypotension History of present illness: Patient is a 64 year old male with past medical history of schizophrenia, COPD on supplemental home oxygen, chronic active smoker greater than 40 pack years and status post right inguinal hernia repair in 2018 who presented to ED on 05/29/25 for shortness of breath and admitted telemetry for acute on chronic hypoxic respiratory failure, pleural effusion, pneumonia and pulmonary emboli. Patient initially upgraded to ICU for acute respiratory distress and pressor support on 05/31/25 and downgraded to medicine floors s/p R thoracentesis the next day, and O2 requirements were improving. Throughout hospital stay, patient has been gradually requiring increased O2 requirements, alternating between BIPAP and HFNC. Patient has gotten three thoracentesis procedures since being admitted, started on Heparin gtt for PE seen on CTA, Lactulose, Spironolactone, and Midodrine for his cirrhosis, given scheduled antipsychotics and anxiolytics for underlying psych disorder and ongoing agitation with his BIPAP. Oncology was consulted for patient's R lung mass seen on imaging, and recommended lung biopsy when patient is stable and infection is cleared, and will f/u outpt. There was a rapid response called around 22:18 for low MAP in the mid 50s, with a BP of 72/51, despite midodrine 15mg given 30 min later. Patient also had received Clonazepam 0.25mg and Seroquel 25mg after seen very agitated and yelling at staff. Patient appears to be very somnolent, unable to state his name or mumble intelligible words. Patient?s WOB also was increasing, RR in the 30s, and decision was made to upgrade patient to ICU for vasopressor support and AHRF impending intubation d/t inability to protect airway. Patient?s brother was contacted and made aware of patient?s current status and guarded prognosis, and would patient to remain a FULL code. Shortly after patient arrived in ICU, patient was able to state his name and denied any complaints including any SOB or chest pain. At this time will hold off on intubation, as patient's WOB improved and satting well above 92% on HFNC 40L and 100% FiO2. cc:: cc: Mike Sultana, Review of Systems Review of Systems ROS Unobtainable: unobtainable due to mental status Exam Vital Signs Temp Pulse Resp BP Pulse Ox O2 Del Method O2 Flow Rate 97.0 F 80 58 H 74/57 L 92 L High Flow Nasal Cannula 40 06/18/25 20:00 06/18/25 21:44 06/18/25 20:00 06/18/25 21:44 06/18/25 20:00 06/18/25 20:00 06/18/25 20:00 FiO2 33 06/18/25 20:00 Narrative Exam General Appearance: Pt appears older than stated age, in no acute distress, lethargic, able to communicate somewhat clearly. HEENT: NC/AT, no scleral icterus, no conjunctival pallor, dry mucuous membranes, edentulous Lungs: Coarse breath sounds, diminished lung sounds in left lower base. No wheezing noted. CVS: RRR, S1/S2 heard, no murmurs or rubs appreciated ABD: Soft, mildly distended, non-tender, non-distended, BS + in all 4 quadrants; large left inguinal mass EXT: Pedal edema 1+ to ankles b/l. radial pulses 2+ BL, DP pulses 2 + BL SKIN: Skin exam normal without any rashes. Neuro: A&O x 2 (name and situation). No gross neurological deficits. Motor and sensory grossly intact in B/L UL and LL. Results Labs 06/18/25 05:46 06/18/25 21:51 Labs: Short CBC 06/18/25 Range/Units 05:46 WBC 29.1 H (3.8-10.6) Thou/mm3 Hgb 11.7 L (13.5-16.0) g/dL Hct 37.1 L (41.0-53.0) % Plt Count 91 L (140-440) Thou/mm3 [facility] 06/18/25 06/18/25 05:46 21:51 Sodium 134 L 134 L Potassium 3.6 3.3 L Chloride 99 100 Carbon Dioxide 17.4 L 19.2 L BUN 44 H 49 H Creatinine 1.4 H 1.6 H Glucose 109 H 145 H Calcium 9.6 9.3 Liver Function 06/18/25 06/18/25 Range/Units 05:46 21:51 Total Bilirubin 1.8 H (0.3-1.2) mg/dL AST 43 H (0-34) U/L ALT 43 (10-49) U/L Alkaline Phosphatase 84 (46-116) U/L Albumin 3.2 L 3.0 L (3.4-4.8) gm/dL ABG Interpretation ABG results: 05/29/25 05/31/25 05/31/25 05:33 10:53 17:16 ABG pH 7.38 7.30 L 7.52 H D ABG pCO2 24 L 33 28 L ABG pO2 57 L* 125 H D 50 L* D ABG HCO3 14 L 16 L 23 ABG O2 Saturation 87 L 99 H 88 L ABG Base Excess -9 L -9 L 1 VBG pH VBG pCO2 VBG pO2 VBG Base Excess 05/31/25 06/01/25 06/03/25 23:51 05:01 20:42 ABG pH 7.49 H 7.53 H 7.54 H ABG pCO2 29 L 27 L 26 L ABG pO2 57 L* 51 L* 60 L ABG HCO3 22 23 22 ABG O2 Saturation 91 88 L 88 L ABG Base Excess 0 1 0 VBG pH VBG pCO2 VBG pO2 VBG Base Excess 06/04/25 06/06/25 06/15/25 10:17 07:58 13:20 ABG pH 7.54 H 7.50 H 7.51 H ABG pCO2 26 L 24 L 26 L ABG pO2 55 L* 50 L* 67 L ABG HCO3 22 19 L 20 ABG O2 Saturation 91 87 L 95 ABG Base Excess 1 -3 -1 VBG pH VBG pCO2 VBG pO2 VBG Base Excess 06/18/25 06/18/25 09:05 21:51 ABG pH ABG pCO2 ABG pO2 ABG HCO3 ABG O2 Saturation ABG Base Excess VBG pH 7.39 7.41 VBG pCO2 33 L 32 L VBG pO2 45 37 VBG Base Excess -4 L -4 L Quality Measures Quality Measures VTE prophylaxis Medications Home Medications and Allergies Home Medications ?Medication ?Instructions ?Recorded ?Confirmed ?Type No Known Home Medications 03/02/18 05/29/25 History Allergies Allergy/AdvReac Type Severity Reaction Status Date / Time No Known Allergies Allergy Unverified 03/06/18 10:09 Visit Medications Acetaminophen (Acetaminophen 325 Mg Tablet) 325 mg PO Q6H PRN PRN Reason: Fever >101.5, Pain 1-3 Stop: 06/28/25 12:06 Last Admin: 06/15/25 01:21 Dose: 325 mg Albuterol/Ipratropium (Albuterol/Ipratropium (Duoneb) Rt Becky 3 Ml Nebu) 3 ml INH Q2HR PRN PRN Reason: SHORTNESS OF BREATH OR WHEEZE Stop: 06/28/25 12:06 Last Admin: 06/14/25 13:25 Dose: 3 ml Citric Acid/Sodium Citrate (Citric Acid/Sodium Citr 15 Ml Udc (Bicitra)) 30 ml PO BID COTY Stop: 07/18/25 08:59 Last Admin: 06/18/25 20:30 Dose: 30 ml Clonazepam (Clonazepam 0.5 Mg Tablet) 0.25 mg PO BID COTY Stop: 06/21/25 10:29 Last Admin: 06/18/25 20:29 Dose: 0.25 mg Haloperidol Lactate (Haloperidol Lact Inj 5 Mg/Ml Vial) 2.5 mg IV X1 PRN; Protocol PRN Reason: Give before procedure Heparin Sodium/Dextrose (Heparin In D5w Ivpb) 25,000 unit in 250 mls @ 12.957 mls/hr IV .[id number] COTY; Protocol Stop: 06/25/25 17:44 Last Titration: 06/18/25 19:37 Dose: 17 units/kg/hr, 12.237 mls/hr Cefepime HCl 2 gm/ Sodium (Chloride) 50 mls @ 100 mls/hr IV Q8HR COTY Stop: 06/20/25 08:29 Last Admin: 06/18/25 21:37 Dose: 100 mls/hr Albumin Human (Albuminex 25% Ivpb) 25 gm in 100 mls @ 100 mls/hr IV QDAY COTY Stop: 06/21/25 07:59 Last Admin: 06/18/25 08:15 Dose: 100 mls/hr Albumin Human (Albuminar-5 Ivpb) 12.5 gm in 250 mls @ 100 mls/hr IV X1 ONE Stop: 06/19/25 00:36 Albumin Human (Albuminar-25 Ivpb) 12.5 gm in 50 mls @ 20 mls/hr IV X1 ONE Stop: 06/19/25 00:59 Lactated Ringer's (Lactated Ringers) 500 mls @ 999 mls/hr IV .Q31M ONE Stop: 06/18/25 22:53 Norepinephrine/Dextrose (Levophed In D5w 8mg/250ml) 8 mg in 250 mls @ 6.625 mls/hr IV .Q24H PRN; Protocol PRN Reason: PER PROTOCOL Stop: 07/18/25 22:25 Ipratropium [place] (Ipratropium Rt 0.5 Mg/ 2.5 Ml Nebu) 0.5 mg INH Q4HRRT [facility] [place] Stop: 07/04/25 18:59 Last Admin: 06/18/25 18:59 Dose: 0.5 mg Lactulose (Lactulose Syrup 20 Gm/30 Ml Udc) 30 gm PO TID [facility] [place]; Protocol Stop: 07/15/25 13:59 Last Admin: 06/18/25 21:46 Dose: 30 gm Levalbuterol HCl (Levalbuterol Rt 1.25 Mg/0.5 Ml Nebu) 1.25 mg INH Q4HRRT [facility] [place] Stop: 07/04/25 18:59 Last Admin: 06/18/25 18:59 Dose: 1.25 mg Melatonin (Melatonin 3 Mg Tablet) 6 mg PO HS [facility] [place] Stop: 07/15/25 20:59 Last Admin: 06/18/25 20:30 Dose: 6 mg Midodrine (Midodrine 5 Mg Tablet) 15 mg PO TID [facility] [place] Stop: 07/04/25 10:19 Last Admin: 06/18/25 21:44 Dose: 15 mg Nicotine (Nicotine Patch 21 Mg/24 Hr Patch.Td24) 21 mg TOP QDAY [facility] [place] Stop: 06/28/25 12:14 Last Admin: 06/18/25 08:14 Dose: 21 mg Ondansetron HCl (Ondansetron Inj 2 Mg/Ml Inj 2 Ml) 4 mg IVP Q6H PRN; Protocol PRN Reason: NAUSEA OR VOMITING Stop: 06/28/25 12:06 Pantoprazole Sodium (Pantoprazole 40 Mg Tablet) 40 mg PO QDAY [facility] [place] Stop: 06/28/25 12:14 Last Admin: 06/18/25 08:16 Dose: 40 mg Quetiapine Fumarate (Quetiapine Fumarate 25 Mg Tablet) 25 mg PO HS COTY Stop: 07/17/25 20:59 Last Admin: 06/18/25 20:30 Dose: 25 mg Sodium Chloride (Sodium Chloride Rt Becky 0.9% 3 Ml Nebu) 3 ml INH PRN PRN PRN Reason: SOLN Stop: 06/30/25 10:51 Last Admin: 06/12/25 02:33 Dose: 3 ml Spironolactone (Spironolactone 25 Mg Tablet) 25 mg PO QDAY COTY On Hold: 06/18/25 07:23 Stop: 07/15/25 08:59 Last Admin: 06/17/25 08:28 Dose: 25 mg Discontinued Medications Hydrocodone Bitart/Acetaminophen (Hydrocodone/Apap 5/325 Tablet) 1 tab PO Q6HR PRN PRN Reason: PAIN SCALE 4-10(Mod-Sev Stop: 06/05/25 10:36 Last Admin: 06/05/25 05:04 Dose: 1 tab Albuterol (Albuterol Rt 2.5 Mg/0.5 Ml Nebu) 5 mg INH X1 ONE Stop: 05/29/25 06:35 Last Admin: 05/29/25 06:52 Dose: 5 mg Albuterol (Albuterol Rt 2.5 Mg/0.5 Ml Nebu) 5 mg INH X1 ONE Stop: 05/31/25 10:53 Last Admin: 05/31/25 10:59 Dose: 5 mg Alprazolam (Alprazolam 0.25 Mg Tablet) 0.25 mg PO BID PRN PRN Reason: ANXIETY Stop: 06/10/25 12:03 Citric Acid/Sodium Citrate (Citric Acid/Sodium Citr 15 Ml Udc (Bicitra)) 30 ml PO BID COTY Stop: 06/08/25 08:59 Last Admin: 06/07/25 21:12 Dose: 30 ml Clonazepam (Clonazepam 0.5 Mg Tablet) 0.25 mg PO BID PRN PRN Reason: ANXIETY Stop: 06/11/25 20:59 Last Admin: 06/06/25 11:36 Dose: 0.25 mg Clonazepam (Clonazepam 0.5 Mg Tablet) 0.5 mg PO BID COTY Stop: 06/08/25 20:59 Last Admin: 06/08/25 08:47 Dose: 0.5 mg Clonazepam (Clonazepam 0.5 Mg Tablet) 0.25 mg PO BID COTY Stop: 06/13/25 20:59 Last Admin: 06/09/25 08:12 Dose: 0.25 mg Clonazepam (Clonazepam 0.5 Mg Tablet) 0.5 mg PO QPM COTY Stop: 06/14/25 20:59 Last Admin: 06/11/25 20:13 Dose: 0.5 mg Clonazepam (Clonazepam 0.5 Mg Tablet) 0.25 mg PO QAM COTY Stop: 06/15/25 08:59 Last Admin: 06/12/25 08:56 Dose: 0.25 mg Enoxaparin Sodium (Enoxaparin Sod Inj 80 Mg/0.8 Ml Syringe) 80 mg SC X1 ONE Stop: 05/29/25 09:26 Last Admin: 05/29/25 10:48 Dose: Not Given Furosemide (Furosemide Inj 10 Mg/Ml 4ml Vial) 40 mg IVP X1 ONE Stop: 05/29/25 05:21 Last Admin: 05/29/25 05:31 Dose: 40 mg Furosemide (Furosemide Inj 10 Mg/Ml 4ml Vial) 40 mg IVP X1 ONE Stop: 05/30/25 16:51 Last Admin: 05/30/25 18:35 Dose: 40 mg Furosemide (Furosemide Inj 10 Mg/Ml 4ml Vial) 40 mg IVP X1 ONE Stop: 05/31/25 11:05 Last Admin: 05/31/25 12:46 Dose: Not Given Furosemide (Furosemide Inj 10 Mg/Ml Vial 2 Ml) 20 mg IVP X1 ONE Stop: 06/01/25 01:52 Last Admin: 06/01/25 02:00 Dose: 20 mg Furosemide (Furosemide Inj 10 Mg/Ml 4ml Vial) 40 mg IVP X1 ONE Stop: 06/01/25 07:56 Last Admin: 06/01/25 08:13 Dose: 40 mg Furosemide (Furosemide Inj 10 Mg/Ml 4ml Vial) 40 mg IVP QDAY COTY Stop: 07/03/25 11:44 Last Admin: 06/06/25 09:41 Dose: 40 mg Furosemide (Furosemide Inj 10 Mg/Ml 4ml Vial) 40 mg IVP X1 ONE Stop: 06/04/25 11:00 Last Admin: 06/04/25 11:24 Dose: 40 mg Furosemide (Furosemide Inj 10 Mg/Ml 4ml Vial) 80 mg IVP QDAY [facility] [place] Stop: 07/07/25 08:59 Last Admin: 06/07/25 09:16 Dose: 80 mg Furosemide (Furosemide Inj 10 Mg/Ml 4ml Vial) 40 mg IV X1 ONE Stop: 06/06/25 11:16 Furosemide (Furosemide Inj 10 Mg/Ml 4ml Vial) 40 mg IVP X1 ONE Stop: 06/06/25 11:16 Last Admin: 06/06/25 11:24 Dose: 40 mg Furosemide (Furosemide Inj 10 Mg/Ml 4ml Vial) 40 mg IVP QDAY [facility] [place] Stop: 07/11/25 10:34 Last Admin: 06/11/25 12:56 Dose: Not Given Furosemide (Furosemide Inj 10 Mg/Ml Vial 2 Ml) 20 mg IVP X1 ONE Stop: 06/14/25 10:06 Last Admin: 06/14/25 11:15 Dose: 20 mg Haloperidol Lactate (Haloperidol Lact Inj 5 Mg/Ml Vial) 5 mg IV X1 ONE Stop: 05/31/25 10:41 Last Admin: 05/31/25 10:44 Dose: 5 mg Haloperidol Lactate (Haloperidol Lact Inj 5 Mg/Ml Vial) 2.5 mg IV X1 ONE Stop: 06/03/25 18:48 Last Admin: 06/03/25 18:52 Dose: 2.5 mg Haloperidol Lactate (Haloperidol Lact Inj 5 Mg/Ml Vial) 2.5 mg IV X1 PRN PRN Reason: GIve before CTA Last Admin: 06/09/25 19:48 Dose: 2.5 mg Heparin Sodium (Porcine) (Heparin Sod Inj 5000 Unit/Ml Vial) 6,550 unit 80 unit/kg (6550 unit) IV X1 ONE; Protocol Stop: 05/29/25 12:15 Last Admin: 05/29/25 14:35 Dose: 6,550 unit Heparin Sodium (Porcine) (Heparin Sod Inj 5000 Unit/Ml Vial) 3,100 unit 40 unit/kg (3100 unit) IV X1 ONE Stop: 05/30/25 13:19 Last Admin: 05/30/25 13:41 Dose: 3,100 unit Heparin Sodium (Porcine) (Heparin Sod Inj 5000 Unit/Ml Vial) 3,200 unit IVP X1 ONE Stop: 06/01/25 07:38 Last Admin: 06/01/25 07:58 Dose: 3,200 unit Heparin Sodium (Porcine) (Heparin Sod Inj 5000 Unit/Ml Vial) 3,240 unit IVP X1 ONE Stop: 06/02/25 01:02 Last Admin: 06/02/25 01:20 Dose: 3,240 unit Heparin Sodium (Porcine) (Heparin Sod Inj 1000 Unit/Ml Vial) 6,336 unit IVP X1 ONE Stop: 06/04/25 18:07 Last Admin: 06/05/25 19:35 Dose: Not Given Heparin Sodium (Porcine) (Heparin Sod Inj 5000 Unit/Ml Vial) 6,350 unit IVP X1 ONE Stop: 06/04/25 18:19 Last Admin: 06/04/25 18:43 Dose: 6,350 unit Heparin Sodium (Porcine) (Heparin Sod Inj 5000 Unit/Ml Vial) 3,100 unit IVP X1 ONE Stop: 06/05/25 10:32 Last Admin: 06/05/25 10:43 Dose: 3,100 unit Heparin Sodium (Porcine) (Heparin Sod Inj 5000 Unit/Ml Vial) 5,750 unit 80 unit/kg (5750 unit) IV X1 ONE; Protocol Stop: 06/11/25 17:37 Last Admin: 06/11/25 19:38 Dose: 5,750 unit Heparin Sodium (Porcine) (Heparin Sod Inj 5000 Unit/Ml Vial) 3,000 unit IVP X1 ONE Stop: 06/12/25 11:05 Last Admin: 06/16/25 07:58 Dose: Not Given Heparin Sodium (Porcine) (Heparin Sod Inj 5000 Unit/Ml Vial) 3,000 unit IVP X1 ONE Stop: 06/12/25 11:08 Last Admin: 06/12/25 11:15 Dose: 3,000 unit Hydroxyzine HCl (Hydroxyzine Hcl 25 Mg Tablet) 25 mg PO X1 ONE Stop: 05/30/25 07:36 Last Admin: 05/30/25 09:22 Dose: 25 mg Hydroxyzine HCl (Hydroxyzine Hcl 25 Mg Tablet) 25 mg PO X1 ONE Stop: 06/03/25 16:12 Last Admin: 06/03/25 17:28 Dose: 25 mg Hydroxyzine HCl (Hydroxyzine Hcl 25 Mg Tablet) 25 mg PO X1 ONE Stop: 06/04/25 21:41 Last Admin: 06/04/25 21:53 Dose: 25 mg Sodium Chloride (Ns) 2,328 mls @ 2,328 mls/hr 30 ml/kg infuse over 60 min (2328 ml) IV .Q1H ONE Stop: 05/29/25 07:34 Last Admin: 05/29/25 10:47 Dose: Not Given Piperacillin/Tazobactam/Dextrose (Zosyn) 3.375 gm in 50 mls @ 100 mls/hr IV X1 ONE Stop: 05/29/25 07:04 Last Infusion: 05/29/25 07:17 Dose: Infused Ceftriaxone Sodium 2 gm/ (Sodium Chloride) 50 mls @ 100 mls/hr IV X1 ONE Stop: 05/29/25 09:24 Last Infusion: 05/29/25 11:29 Dose: Infused Azithromycin 500 mg/ Sodium (Chloride) 250 mls @ 250 mls/hr IV QDAY COTY Stop: 06/01/25 08:55 Last Admin: 05/31/25 09:59 Dose: 250 mls/hr Heparin Sodium/Dextrose (Heparin In D5w Ivpb) 25,000 unit in 250 mls @ 14.696 mls/hr IV .Q17H1M COTY; Protocol Stop: 06/12/25 12:14 Last Titration: 06/04/25 07:12 Dose: 0 units/kg/hr, 0 mls/hr Ceftriaxone Sodium/Dextrose (Rocephin/D5w 1gm Iv Premix) 1 gm in 50 mls @ 100 mls/hr IV QDAY COTY Stop: 06/06/25 08:59 Piperacillin/Tazobactam/Dextrose (Zosyn) 3.375 gm in 50 mls @ 12.5 mls/hr IV Q8HR COTY; Protocol Stop: 06/05/25 13:59 Last Admin: 06/01/25 05:37 Dose: 12.5 mls/hr Vancomycin HCl (Vancomycin/Water 1250 Mg Ivpb) 250 mls @ 120 mls/hr IV BID@1000,2200 COTY; Protocol Stop: 06/06/25 08:29 Last Admin: 06/01/25 10:38 Dose: Not Given Albumin Human (Albuminex 25% Ivpb) 25 gm in 100 mls @ 100 mls/hr IV X1 ONE Stop: 05/30/25 11:39 Last Infusion: 05/30/25 18:35 Dose: Infused Albumin Human (Albuminex 25% Ivpb) 25 gm in 100 mls @ 100 mls/hr IV QDAY [facility] [place] Stop: 06/03/25 11:03 Last Admin: 06/03/25 08:42 Dose: 100 mls/hr Potassium Chloride (Kcl Ivpb) 10 meq in 100 mls @ 100 mls/hr IV Q1H [facility] [place] Stop: 06/01/25 10:11 Last Admin: 06/01/25 08:36 Dose: Not Given Levofloxacin/Dextrose (Levaquin Ivpb) 750 mg in 150 mls @ 100 mls/hr IV QDAY [facility] [place] Stop: 06/08/25 10:29 Last Admin: 06/07/25 09:12 Dose: 100 mls/hr Potassium Chloride (Kcl Ivpb) 10 meq in 100 mls @ 100 mls/hr IV Q1H [facility] [place] Stop: 06/01/25 17:52 Last Admin: 06/01/25 17:34 Dose: 75 mls/hr Lactated Ringer's (Lactated Ringers) 500 mls @ 999 mls/hr IV .Q31M ONE Stop: 06/04/25 08:19 Last Admin: 06/04/25 07:59 Dose: 999 mls/hr Sodium Chloride (Ns) 250 mls @ 999 mls/hr IV .Q16M ONE Stop: 06/04/25 08:06 Last Admin: 06/04/25 08:04 Dose: Not Given Magnesium Sulfate (Magnesium Sulfate Ivpb) 4 gm in 50 mls @ 12.5 mls/hr IV X1 ONE Stop: 06/04/25 12:16 Last Admin: 06/04/25 10:36 Dose: 12.5 mls/hr Heparin Sodium/Dextrose (Heparin In D5w Ivpb) 25,000 unit in 250 mls @ 14.256 mls/hr IV .[id number] [facility] [place]; Protocol Stop: 06/12/25 12:14 Last Admin: 06/10/25 19:09 Dose: Not Given Albumin Human (Albuminar-25 Ivpb) 12.5 gm in 50 mls @ 100 mls/hr IV QDAY [facility] [place] Stop: 07/04/25 16:01 Last Admin: 06/04/25 16:47 Dose: Not Given Albumin Human (Albuminar-25 Ivpb) 12.5 gm in 50 mls @ 100 mls/hr IV X1 ONE Stop: 06/04/25 16:39 Last Admin: 06/04/25 16:54 Dose: 100 mls/hr Furosemide 200 mg/ Sodium (Chloride) 100 mls @ 5 mls/hr IV .Q20H [facility]OT[facility] Stop: 07/11/25 15:38 Last Infusion: 06/12/25 09:50 Dose: 0 mls/hr Albumin Human (Albuminex 25% Ivpb) 25 gm in 100 mls @ 100 mls/hr IV X1 ONE Stop: 06/12/25 11:53 Last Admin: 06/12/25 11:00 Dose: 100 mls/hr Albumin Human (Albuminex 25% Ivpb) 25 gm in 100 mls @ 100 mls/hr IV X1 ONE Stop: 06/12/25 16:59 Last Admin: 06/12/25 17:22 Dose: 100 mls/hr Cefepime HCl 1 gm/ Sodium (Chloride) 50 mls @ 100 mls/hr IV Q8HR [facility]OT[facility] Stop: 06/20/25 08:29 Last Infusion: 06/14/25 22:25 Dose: Infused Sodium Chloride (Ns) 500 mls @ 999 mls/hr IV .Q31M ONE Stop: 06/17/25 11:46 Last Admin: 06/17/25 11:24 Dose: 999 mls/hr Albumin Human (Albuminar-5 Ivpb) 12.5 gm in 250 mls @ 100 mls/hr IV QDAY [facility]OT[facility] Stop: 06/22/25 22:06 Ipratropium [place] (Ipratropium Rt 0.5 Mg/ 2.5 Ml Nebu) 0.5 mg INH Q6HRRT [facility]OT[facility] Stop: 06/28/25 12:59 Last Admin: 06/04/25 13:34 Dose: 0.5 mg Ipratropium [place] (Ipratropium Rt 0.5 Mg/ 2.5 Ml Nebu) 0.5 mg INH X1 ONE Stop: 06/01/25 01:52 Last Admin: 06/01/25 02:01 Dose: 0.5 mg Lactulose (Lactulose Syrup 20 Gm/30 Ml Udc) 30 gm PO TID [facility] [place]; Protocol Stop: 07/05/25 14:44 Last Admin: 06/12/25 06:02 Dose: 30 gm Lactulose (Lactulose Syrup 10 Gm/15 Ml) 200 gm SD Q4HR COTY; Protocol Stop: 07/12/25 11:14 Last Admin: 06/13/25 07:35 Dose: Not Given Lactulose (Lactulose Syrup 20 Gm/30 Ml Udc) 40 gm PO TID [facility] [place]; Protocol Stop: 07/12/25 13:59 Last Admin: 06/15/25 05:07 Dose: Not Given Levalbuterol HCl (Levalbuterol Rt 1.25 Mg/0.5 Ml Nebu) 1.25 mg INH Q6HRRT [facility]OT[facility] Stop: 06/28/25 12:59 Last Admin: 06/04/25 13:34 Dose: 1.25 mg Levalbuterol HCl (Levalbuterol Rt 1.25 Mg/0.5 Ml Nebu) 1.25 mg INH X1 ONE Stop: 06/01/25 01:52 Last Admin: 06/01/25 02:01 Dose: 1.25 mg Lorazepam (Lorazepam 0.5 Mg Tablet) 0.5 mg PO Q8HR PRN PRN Reason: ANXIETY Stop: 06/08/25 09:27 Last Admin: 06/06/25 23:29 Dose: 0.5 mg Melatonin (Melatonin 3 Mg Tablet) 3 mg PO HS ONE Stop: 06/13/25 20:02 Last Admin: 06/13/25 21:31 Dose: 3 mg Melatonin (Melatonin 3 Mg Tablet) 6 mg PO HS ONE Stop: 06/14/25 19:21 Last Admin: 06/14/25 19:43 Dose: 6 mg Methylprednisolone Sodium Succinate (Methylprednisolone Sod Succ 62.5 Mg/Ml 2ml Vial) 125 mg IVP X1 ONE Stop: 05/29/25 06:35 Last Admin: 05/29/25 06:47 Dose: 125 mg Midazolam HCl (Midazolam Inj 1 Mg/Ml Vial 2 Ml) 2 mg IVP X1 ONE Stop: 05/31/25 10:48 Last Admin: 05/31/25 10:51 Dose: 2 mg Midazolam HCl (Midazolam Inj 1 Mg/Ml Vial 2 Ml) 1 mg IVP X1 ONE Stop: 06/01/25 02:31 Last Admin: 06/01/25 02:36 Dose: 1 mg Midodrine (Midodrine 5 Mg Tablet) 5 mg PO TID PRN PRN Reason: hypotension Stop: 07/02/25 08:14 Last Admin: 06/03/25 20:45 Dose: 5 mg Midodrine (Midodrine 5 Mg Tablet) 5 mg PO X1 ONE Stop: 06/04/25 00:41 Last Admin: 06/04/25 00:58 Dose: 5 mg Midodrine (Midodrine 5 Mg Tablet) 15 mg PO X1 ONE Stop: 06/06/25 09:28 Last Admin: 06/06/25 09:40 Dose: 15 mg Midodrine (Midodrine 5 Mg Tablet) 10 mg PO X1 ONE Stop: 06/11/25 01:16 Last Admin: 06/11/25 01:38 Dose: Not Given Midodrine (Midodrine 5 Mg Tablet) 15 mg PO X1 ONE Stop: 06/11/25 01:16 Last Admin: 06/11/25 01:38 Dose: 15 mg Morphine Sulfate (Morphine Sulf Inj 4 Mg/Ml Vial) 2 mg IV X1 ONE Stop: 05/29/25 05:21 Last Admin: 05/29/25 05:31 Dose: 2 mg Nitroglycerin (Nitroglycerin Oint 2% 1 Inch Packet) 1 inch TOP X1 ONE Stop: 05/29/25 05:21 Last Admin: 05/29/25 05:30 Dose: 1 inch Pantoprazole Sodium (Pantoprazole Inj 40 Mg Vial) 40 mg IVP QDAY [facility] [place] Stop: 06/28/25 12:14 Last Admin: 06/07/25 09:14 Dose: 40 mg Pharmacy Consult (Vancomycin Pharmacy To Dose 1 Each Each) 1 each IV QDAY PRN PRN Reason: PROTOCOL Stop: 06/29/25 08:59 Polyethylene Glycol (Polyethylene Glycol 17 Gm Packet) 17 gm PO QDAY [facility] [place] Stop: 07/02/25 10:29 Last Admin: 06/07/25 11:26 Dose: Not Given Potassium Chloride (Potassium Chloride 20 Meq Tabcr) 40 meq PO X1 ONE Stop: 05/30/25 08:06 Last Admin: 05/30/25 09:22 Dose: 40 meq Potassium Chloride (Potassium Chloride 10% 20 Meq/15 Ml Udc) 40 meq PO X1 ONE Stop: 05/31/25 09:38 Last Admin: 05/31/25 09:58 Dose: 40 meq Potassium Chloride (Potassium Chloride 10% 20 Meq/15 Ml Udc) 60 meq PO X1 ONE Stop: 06/01/25 08:16 Last Admin: 06/01/25 08:14 Dose: 60 meq Potassium Chloride (Potassium Chloride 10% 20 Meq/15 Ml Udc) 40 meq PO X1 ONE Stop: 06/01/25 08:11 Last Admin: 06/01/25 08:36 Dose: Not Given Potassium Chloride (Potassium Chloride 20 Meq Tabcr) 20 meq PO X1 ONE Stop: 06/01/25 15:53 Last Admin: 06/01/25 16:12 Dose: 20 meq Potassium Phos/Sodium Phos (Naph,[facility] 1 Packet (1.5 Gm)) 1 packet PO X1 ONE Stop: 06/02/25 07:39 Last Admin: 06/02/25 08:16 Dose: 1 packet Potassium Phos/Sodium Phos (Naph,[facility] 1 Packet (1.5 Gm)) 1 packet PO X1 ONE Stop: 06/02/25 08:16 Last Admin: 06/02/25 08:16 Dose: 1 packet Prednisone (Prednisone 20 Mg Tablet) 40 mg PO QDAY [facility] [place] Stop: 06/14/25 10:05 Last Admin: 06/11/25 09:02 Dose: 40 mg Quetiapine Fumarate (Quetiapine Fumarate 25 Mg Tablet) 25 mg PO X1 ONE Stop: 06/06/25 23:41 Last Admin: 06/06/25 23:46 Dose: 25 mg Quetiapine Fumarate (Quetiapine Fumarate 25 Mg Tablet) 25 mg PO QDAY [facility] [place] Stop: 07/16/25 12:14 Last Admin: 06/17/25 08:28 Dose: 25 mg Rifaximin (Rifaximin 550 Mg Tablet) 550 mg PO BID COTY Stop: 06/08/25 10:29 Last Admin: 06/08/25 08:47 Dose: 550 mg Sodium Chloride (Sodium Chloride Rt Becky 0.9% 3 Ml Nebu) 3 ml INH PRN PRN PRN Reason: SOLN Stop: 06/28/25 06:33 Last Admin: 05/29/25 06:52 Dose: 3 ml Sodium Chloride (Sodium Chloride Rt Becky 0.9% 3 Ml Nebu) 3 ml INH PRN PRN PRN Reason: SOLN Stop: 06/28/25 12:06 Sodium Chloride (Sodium Chloride Rt 10% 15 Ml Nebu) 5 ml INH X1 ONE Stop: 05/29/25 12:21 Last Admin: 05/30/25 18:36 Dose: Not Given Sodium Chloride (Sodium Chloride Rt Becky 0.9% 3 Ml Nebu) 3 ml INH X1 ONE Stop: 06/01/25 01:53 Last Admin: 06/01/25 02:02 Dose: 3 ml Spironolactone (Spironolactone 25 Mg Tablet) 25 mg PO QDAY [facility] [place] Stop: 07/01/25 10:29 Last Admin: 06/03/25 08:43 Dose: 25 mg Spironolactone (Spironolactone 25 Mg Tablet) 100 mg PO QDAY [facility] [place] Stop: 07/03/25 11:44 Last Admin: 06/05/25 09:13 Dose: 100 mg Spironolactone (Spironolactone 25 Mg Tablet) 50 mg PO QDAY [facility] [place] Stop: 07/06/25 08:59 Last Admin: 06/08/25 08:47 Dose: 50 mg Spironolactone (Spironolactone 25 Mg Tablet) 25 mg PO BID [facility] [place] Stop: 07/11/25 10:34 Last Admin: 06/12/25 09:02 Dose: 25 mg Spironolactone (Spironolactone 25 Mg Tablet) 50 mg PO X1 ONE Stop: 06/16/25 09:17 Last Admin: 06/16/25 11:36 Dose: 50 mg Assessment & Plan Plan Patient is a 64 year old male with past medical history of schizophrenia, COPD on supplemental home oxygen, chronic active smoker greater than 40 pack years and status post right inguinal hernia repair in 2018 who presented to ED on 05/29/25 for shortness of breath and admitted telemetry for acute on chronic hypoxic respiratory failure, pleural effusion, pneumonia and pulmonary emboli and upgraded to ICU for vasopressor support and AHRF impending intubation. NEURO #Acute on chronic encephalopathy #History of schizophrenia #Agitation/Anxiety vs Hospital Acquired Delirium Diagnostic Workup: Patient diagnosed with Schizophrenia years ago by PCP , not on any current outpt psych medications. Patient has been restless and agitated due to prolonged hospital stay and physical distress. Patient upgraded to ICU after presenting with extreme somnolence, unable to state name or speak intelligible words after receiving Seroquel 25mg HS on 06/18/25. Patient's baseline mentation is A&O x3 but has fluctuated throughout his hospital stay complicated with patient's underlying psych disorder and hosptial delirium Treatment: Has received Seroquel 25mg HS and Klonipin 0.25mg BID for his agitation, however will hold for now Avoid overuse of benzodiazepines to prevent respiratory depression. CARDIO #Undifferentiated Shock #Hypotension DDx: cirrhosis vs ongoing sepsis vs cardiogenic Diagnostic Workup: MAP in the mid-50s, BP 72/51 despite midodrine administration. Bedside echo shows good contractility, with plethoric and congested IVC of 2.25cm Treatment: IV albumin 25g for blood pressure stabilization and 500ml LR bolus given prior to bedside echo eval Midodrine 15mg TID for BP support. Levophed and additional vasopressor support as needed to maintain MAP > 65 Follow-up: Monitor blood pressure and ensure appropriate volume status. PULM #Acute on chronic hypoxic respiratory failure / #Bilateral PNA #ARDS #Recurrent pleural effusions #Bilateral pulmonary emboli #Underlying COPD #Right lung mass Diagnostic Workup: Chronic smoking history. CT scan showed bilateral pneumonia (left upper lobe and right lower lobe), large right upper lobe mass, and right hilar lymphadenopathy. Received three thoracentesis during this hospitalization which has improved with SOB Thoracentesis findings: Exudative fluid, Bacillus (likely cereus) cultured. Cytology from thoracentesis showed few atypical epithelial cells, insufficient for definitive malignancy diagnosis. CTA (06/09): Pulmonary emboli in the RLL and LLL branches. Repeated CXR shows extensive b/l PNA with ARDS picture Patient has been requiring an increase in O2 requirments, b/l opacities seen on CXR SpO2/FiO2 < 315 currently on HFNC at 40L at 100% FiO2, satting 92-96% Treatment: BiPAP transitioned to high-flow nasal cannula. Previously on Levofloxacin and started on Cefepime IV 2g every 8 hours started 06/13 for pneumonia in immunocompromised setting. Prednisone 40mg daily (completed 5-day course). DuoNeb treatments (IV and inhaled). Follow-up: Monitor for fluid reaccumulation and manage pleural effusions accordingly. Repeat CT scan in 6 months to monitor for evolution of right middle lobe consolidation. Follow-up pleural studies and lung biopsy if the lesion remains indeterminate. Once patient's PNA is cleared, patient may benefit from PleurxCath #Bilateral Pulmonary Embolisms DDx: Likely secondary to hypercoagulable state in malignancy Diagnostic Workup: CTA showed bilateral pulmonary emboli. Treatment: Heparin GTT per PE protocol and can transition to Eliquis when stable Monitor for bleeding. GI/FEN #Cirrhosis #Hyperbilirubinemia, #Transaminitis -improving #Anasarca - improving Diagnostic Workup: Chronic alcohol use. Elevated INR and thrombocytopenia indicating chronic liver pathology. Mild ascites and anasarca, improved with diuresis. AST 436 -> 41, ALT 398 -> 105. Hepatitis panel negative. Treatment: Lactulose PO 30g TID, titrated to 2-3 BMs Restarted spironolactone 25mg PO for stable BP and kidney function, last dose received 06/18/25 this AM and will hold for now in lieu of low BP Rifaximin 550mg BID was given until 06/08, unsure why it was discontinued/held; will restart Midodrine 15mg TID for BP support. Will hold off an diuretics for now in the setting of low BP Follow-up: Monitor liver function and renal status. Outpatient follow-up with hepatology/GI. Patient unable to tolerate PO at this time d/t mental status, will resume PO meds when able RENAL #YASMIN #Lactic acidosis - Type A&B #?Contraction Alkalosis #HAGMA-improving Diagnostic Workup: Creatinine levels 1.1 --> 1.6, baseline Cr range 0.8?1.0. BUN 49, BUN/Cr ratio 31, eGFR 48 HCO3- and pH increasing on serial VBG taken today in the setting of possible overdiuresis Patient's LA continues to be elevated in the setting of possible active infection and underlying malignancy and hypoxia. Recent LA was 5.5 Treatment: Hold spironolactone and Lasix. Continue monitoring renal function with daily renal panel. Initially on Bicitra to help with HAGMA, which is improving Follow-up: Renally dose medications. Avoid overdiuresis and nephrotoxic medications. #Electrolyte imbalance #Hypokalemia Repleted with 40mEq IV -Continue to monitor, and replete as needed with daily labs HEME/ONC #Right upper lung mass Diagnostic Workup: CT revealed pulmonary mass in the right upper lobe with hilar lymphadenopathy and pleural effusion. Pleural fluid cultured Bacillus (likely cereus) and also showed very rare epithelial cells. Follow-up: Lung biopsy to confirm malignancy. Follow-up pleural fluid studies and cytology. Consider [facility] imaging to assess metastasis. #SURYA Diagnostic Workup: Hemoglobin 12.4, low iron, ferritin, and TIBC normal. Treatment: No active treatment at this time. Follow-up: Start iron supplementation once infection resolves. ENDO no active issues ID #PNA 2/2 GPC VS GNR #Parapneumonic Effusion Diagnostic Workup: WBC has been increasing, currently 29; sputum Gram stain showed GPC, GNR. Pleural fluid cultured Bacillus (likely cereus). +LDH Pleural:serum 378:229 >.66 (exudative) +Protein pleural:serum 3.3:6.5 >0.5 (exudative) Treatment: Discontinued azithromycin, Zosyn, and vancomycin, levofloxacin. Started on IV Cefepime for resistant pneumonia since 06/13/25 Follow-up: Monitor CBC and oxygen levels. Follow-up pleural studies and repeat cytology. Once infection clears, patient may benefit from pleurx catheter MSK no active issues PSYCH see neuro Health Maintenance: DVT prophylaxis: Heparin gtt GI prophylaxis: PPI Diet: Cardiac and mighty shake Aguilar: None Lines: PIV Drips: Levophed CODE STATUS: Full code Disposition: Admitted to ICU for AHRF and vasopressor support. Patient's care and plan discussed with my attending, Dr. Zuleta. Seema Coon, PGY-3
[2025-06-18] MEDS: POTASSIUM CHL 10 mEq IVPB 10 MEQ/100 ML BAG 50 MEQ IV (23:22)
[2025-06-18] MEDS: ALBUMIN HUMAN 25% IVPB 12.5 GM/50 ML BTL IV (23:22)
[2025-06-18] MEDS: RINGERS LACTATED 500 ML 500 ML 999 ML IV (23:23)
[2025-06-18] MEDS: Norepinephrine/D5W 8mg/250ml 8 MG/250 ML BAG 6.625 MG IV (23:40)
[2025-06-19] VITALS (95 sets, daily range): BP systolic 37–113; BP diastolic 2–90; PULSE 84–120; RESP 0–33; TEMP 35.8–36.8; O2SAT 84–98; BMI 21.1
[2025-06-19 01:01] LABS: Reflex Lactate? Y
[2025-06-19] MEDS: POTASSIUM CHL 10 mEq IVPB 10 MEQ/100 ML BAG 50 MEQ IV ×3 (01:22→05:54)
[2025-06-19 01:35] LABS: Lactic Acid, 3 HR 5.5 mMol/L (0.4-2.0)
[2025-06-19] MEDS: LEVALBUTEROL RT 1.25 MG/0.5 ML NEBU INH ×5 (02:04→22:23)
[2025-06-19] MEDS: IPRATROPIUM RT 0.5 MG/ 2.5 ML NEBU INH ×5 (02:04→22:23)
[2025-06-19] MEDS: DEXMEDETOMIDINE 400 MCG IVPB 400 MCG/100 ML BAG IV (03:25)
[2025-06-19 05:26] LABS: Lactate (Lactic Acid) 5.3 mMol/L (0.4-2.0)
[2025-06-19 05:40] LABS: Basophils # (Auto) 0.1 Thou/mm3 (0.0-0.2); Basophils % (Auto) 0 % (0-2.5); Eosinophils # (Auto) 0.0 Thou/mm3 (0.0-0.5); Eosinophils % (Auto) 0 % (0-10); Hematocrit 35.0 % (41.0-53.0); Hemoglobin 10.6 g/dL (13.5-16.0); Immature Granulocytes Auto 1.69 Thou/mm3 (0.00-0.00); Lymphocytes # (Auto) 1.1 Thou/mm3 (1.0-4.8); Lymphocytes % (Auto) 4 % (10-50); Mean Corpuscular HGB Conc 30.3 g/dl (31.0-37.0); Mean Corpuscular Hemoglobin 26.6 pg (25.0-35.0); Mean Corpuscular Volume 88 fL (80-100); Monocytes # (Auto) 1.6 Thou/mm3 (0.0-0.8); Monocytes % (Auto) 6 % (0-12); Neutrophils # (Auto) 23.2 Thou/mm3 (1.8-7.7); Neutrophils % (Auto) 84 % (37-80); Nucleated Red Blood Cell # 0.12 Thou/mm3 (0.00-0.00); Nucleated Red Blood Cell % 0 /100 WBC (0); Platelet Count 83 Thou/mm3 (140-440); RDW Standard Deviation 69.3 fL (35.1-43.9); Red Blood Count 3.99 Miln/mm3 (4.50-5.90); White Blood Count 27.6 Thou/mm3 (3.8-10.6)
[2025-06-19 06:15] LABS: Alanine Aminotransferase 36 U/L (10-49); Albumin, Serum 3.1 gm/dL (3.4-4.8); Albumin/Globulin Ratio 0.8 (1.2-2.2); Alkaline Phosphatase 74 U/L (46-116); Anion Gap 13 (7-16); Aspartate Amino Transferase 33 U/L (0-34); BUN/Creatinine Ratio 33 Ratio (12-20); Bilirubin,Total 1.8 mg/dL (0.3-1.2); Blood Urea Nitrogen 49 mg/dL (9-23); Calcium 9.6 mg/dL (8.3-10.6); Calcium (Corrected) 10.3 mg/dL (8.5-10.1); Carbon Dioxide 22.2 mMol/L (20.0-31.0); Chloride 98 mMol/L (98-107); Creatinine (Component) 1.5 mg/dL (0.6-1.3); Estimated Creatinine Clearance 51.0 mL/min (>60); Globulin 3.7 gm/dL (2.3-3.5); Glucose 147 mg/dL (74-106); Magnesium 2.6 mg/dL (1.6-2.6); Osmolality,Calculated 282 (275-295); Phosphorous 3.2 mg/dL (2.4-5.1); Potassium 3.5 mMol/L (3.4-5.1); Sodium 133 mMol/L (136-145); Total Protein 6.8 gm/dL (5.7-8.2); eGFR 52 See Note
[2025-06-19 06:32] LABS: Partial Thromboplastin Time > 139.0 Seconds (22.0-36.0)
[2025-06-19] MEDS: CEFEPIME INJ 2 GM in SODIUM CHLORIDE 0.9% (Popper) 50 ML IV ×3 (06:37→21:02)
[2025-06-19 07:29] LABS: Partial Thromboplastin Time 84.2 Seconds (22.0-36.0)
[2025-06-19] MEDS: ALBUMIN HUMAN-KJDA 25% IVPB 25 GM/100 ML BTL IV ×3 (08:01→20:36)
[2025-06-19] MEDS: NICOTINE PATCH 21 MG/24 HR PATCH.TD24 TOP (08:01)
[2025-06-19 08:19] LABS: Base Excess -1 (-3-3); HCO3 22 mEq/L (20-26); Inspired Oxygen, FIO2 100 %; O2 Saturation 95 % (91-98); PCO2 30 mmHg (32.0-48.0); PO2 71 mmHg (83-108); pH, Arterial 7.48 (7.35-7.45)
[2025-06-19 08:22] LABS: Allen Test Performed/OK; Puncture Site Right Radial
[2025-06-19 08:22] LABS: Reflex Lactate? Y
[2025-06-19] MEDS: KETAMINE 50 MG/ML VIAL 10 ML 15 MG IVP (09:05)
--- NOTE | 2025-06-19 09:42 | PC.SS ---
ELEVATOR CONSTRUCTOR SUPERVISOR conducted phone contact with patient's son, Oliverio Yost ; to confirm designee as patient's surrogate medical decision maker. ELEVATOR CONSTRUCTOR SUPERVISOR relayed to the patient' son roles/responsibilities of designation (making decisions on treatment options, life sustaining procedures, readily available to communicate with medical team and providing consents). Patient's son confirmed designation as patient's surrogate medical decision maker. ELEVATOR CONSTRUCTOR SUPERVISOR updated ICU medical team.
[2025-06-19 09:59] LABS: Lactic Acid, 3 HR 4.3 mMol/L (0.4-2.0)
[2025-06-19] MEDS: ETOMIDATE INJ 2 MG/ML VIAL 10 ML 20 MG IVP (10:38)
[2025-06-19] MEDS: ROCURONIUM INJ 10 MG/ML VIAL 10 ML 70 MG IVP (10:39)
--- NOTE | 2025-06-19 10:46 | XR_ITS ---
EXAMINATION: AP chest single view TECHNIQUE: AP portable semiupright chest single view Date and time: June 19, 2025, 1056 hours, comparison June 18, 2025 INDICATIONS: Hypoxic respiratory failure post intubation FINDINGS: Endotracheal tube tip 5.3 cm above tracee Orogastric tube in the stomach Diffuse left lung pneumonia ARDS again noted as well as pulmonary mass in the right upper lobe and right pleural fluid IMPRESSION: Interval endotracheal tube, tip 5.3 cm above tracee Orogastric tube in the stomach There remains severe pneumonia ARDS left lung and pulmonary mass right upper lobe
[2025-06-19] MEDS: PROPOFOL 1,000 MG IVPB 1,000 MG/100 ML VIAL 2.121 MG IV (10:50)
--- NOTE | 2025-06-19 10:50 | PD.RESPROC ---
PROCEDURES: Procedure Date / Time 06/19/25 1040 Procedure Narrative Procedure Narrative: Attending Attestation: I was present for the entire procedure. No immediate complications. Patient tolerated procedure well. Follow up chest film with adequate positioning of ETT. Intubation Indication(s): acute Resp Failure (increased work of breathing) and other Informed consent obtained: obtained from surrogate decision maker Time out done, and the following verified: correct patient, side and site, procedure, patient position and implants and/or equipment Sedative: etomidate Mg given: 20 Sedative #2: other Paralytic: rocuronium Mg given: 70 Laryngoscope: Nan Assist device used: fiber optic device ET tube size: 7.5 ET tube uncuffed: Yes Tube secured depth (cm): 20 Tube secured location: other Tube placement confirmation: visualized tube passing through cords, equal breath sounds bilaterally, no breath sounds over epigastrium and confirmation by capnometry Patient tolerated procedure: well and no complications EBL(ml): 0 Intubation complications: none Additional comments: INDICATION: Acute on chronic hypoxic respiratory failure PROCEDURE SENIOR TECHNICAL SUPPORT ENGINEER: Dr. Luna ATTENDING PHYSICIAN: Dr. Johnson. In Attendance Yes CONSENT: [Yes, from son, surrogate decision maker] During the informed consent discussion regarding the procedure, or treatment, I explained the following to the patient/designee: a. Nature of the procedure or treatment and who will perform the procedure or treatment. b. Necessity for procedure and the possible benefits. c. Risks and complications (most common and serious). d. Alternative treatments and the risks, benefits and side effects of each (including no treatment). e. Likelihood of the patient achieving his/her goals without this procedure and surgery treatment. f. Problems that might occur during the recuperation. g. Conflicts of interest, if any PROCEDURE SUMMARY: A time out was performed. My hands were washed immediately prior to the procedure. I wore a surgical cap, mask with protective eyewear, gown and gloves throughout the procedure. The patient was placed on a cardiac rehab nurse including continuous pulse oximetry. Rapid Sequence Intubation was conducted, patient was masked and bagged to maintain oxygen saturation over 92% but dropped to 88% therefore an oropharyngeal airway was introduced and bag to mask ventilation was continued. The patient received 20 mg of epotimidate for induction and 70 mg of rocuronium for adequate paralysis. Cricoid pressure was maintained from time induction agent was given to time of cuff balloon inflation. Using a nan laryngoscope and a size 7.5 endotracheal tube with stylet, the patient was intubated on the first attempt. The stylet was removed and cuff balloon was inflated. Appropriate endotracheal tube position was confirmed by direct visualization of vocal cord passage, fogging of the tube, CO2 colormetric indicator and symmetric breath sounds. The tube was secured at 20 cm at the lips with an anchor fast. Post intubation chest x-ray confirmed position.
--- NOTE | 2025-06-19 11:31 | XR_ITS ---
EXAMINATION: AP chest single view TECHNIQUE: AP portable supine chest single view Date and time: June 19, 2025, 12:22 p.m., comparison June 19, 2025 10:56 a.m. INDICATIONS: Post central line placement today. FINDINGS: Right internal jugular central line tip SVC satisfactory position No pneumothorax Chest film otherwise unchanged IMPRESSION: Right internal jugular central line tip SVC satisfactory position, no pneumothorax
--- NOTE | 2025-06-19 13:06 | ESOP_ITS ---
PROCEDURES: Procedure Date / Time 06/19/25 1306 Procedural Time Out Time out performed: yes Procedure Narrative Procedure Narrative: Attending Attestation: I was present for the entire procedure. Patient tolerated procedure well without any immediate complications. Minimal blood loss. Arterial Line Indication(s): inability to monitor non-invasive BP Informed consent obtained: obtained from surrogate decision maker Time out done, and the following verified: correct patient, side and site, procedure, patient position and implants and/or equipment Technique used: guide wire technique Post-Procedure: line sutured into place and dry sterile dressing placed Patient tolerated procedure: well and no complications EBL(ml): 5 Complications: none Site: right Procedure comment: INDICATION: Inability to monitor non-invasive BP PROCEDURE RETAIL CLIENT MANAGER: Dr. Charlie Luna ATTENDING PHYSICIAN: Dr. Johnson In Attendance Yes CONSENT: Yes, from son (surrogate decision maker) During the informed consent discussion regarding the procedure, or treatment, I explained the following to the patient/designee: a. Nature of the procedure or treatment and who will perform the procedure or treatment. b. Necessity for procedure and the possible benefits. c. Risks and complications (most common and serious). d. Alternative treatments and the risks, benefits and side effects of each (including no treatment). e. Likelihood of the patient achieving his/her goals without this procedure and surgery treatment. f. Problems that might occur during the recuperation. g. Conflicts of interest, if any PROCEDURE SUMMARY: A time out was performed. My hands were washed immediately prior to the proced ure. I wore a surgical cap, mask with protective eyewear, sterile gown and sterile gloves throughout the procedure. The right inguinal region was prepped using chlorhexidine scrub and draped in sterile fashion using a three quarter sheet drape and sterile towels. The femoral pulse was identified. Anesthesia was achieved using 1% lidocaine. Palpating the femoral pulse throughout the procedure, the introducer needle was inserted into the femoral artery. Arterial blood was withdrawn. The syringe was removed and a guidewire was advanced through the needle into the femoral artery. The needle was exchanged over the wire for an arterial catheter. The wire was removed and the catheter was secured to the skin using a suture. The patient tolerated the procedure without any hemodynamic compromise. At time of procedure completion, the catheter was connected to the property assessment monitor and calibrated. Appropriate waveform and blood pressure tracing was observed. Estimated blood loss is 5ml.
[2025-06-19] MEDS: LIDOCAINE HCL 1% 20 ML VIAL 6 ML INFL (13:18)
[2025-06-19 13:25] LABS: Base Excess -6 (-3-3); HCO3 22 mEq/L (20-26); Inspired Oxygen, FIO2 94 %; O2 Saturation 94 % (91-98); PCO2 48 mmHg (32.0-48.0); PO2 82 mmHg (83-108); pH, Arterial 7.26 (7.35-7.45)
[2025-06-19 13:33] LABS: Allen Test Not Performed; Puncture Site Arterial Line
--- NOTE | 2025-06-19 14:19 | XR_ITS ---
EXAMINATION: AP chest single view TECHNIQUE: AP portable supine chest single view Date and time: June 19, 2025, 1428 hours, comparison June 19, 2025 12:22 p.m. INDICATIONS: Interval right chest tube placement FINDINGS: Right chest tube satisfactory position, decrease in right pleural fluid No pneumothorax depicted Pulmonary mass right upper lobe again noted Stable position right internal jugular central line and endotracheal tube Extensive pneumonia ARDS left lung again identified IMPRESSION: Interval right chest tube in satisfactory position with decrease in right pleural fluid
--- NOTE | 2025-06-19 14:42 | ESPR_ITS ---
<Statement entered by Arian Gann MD - 06/19/25 18:37> I have reviewed the note and agree with the resident's assessment & plan with exceptions as below. I have personally reviewed labs, imaging, home meds/prior records, examined the patient, formulated and discussed management plan with the IM team. Pt examined at bedside today. We spoke with social work and son today, who agrees to become surrogate decision maker at this time. Patient's son wants interventions and full CODE STATUS at this time. We received consent for procedures including central line placement, arterial line, intubation and chest tube placement. Patient's worsening respiratory failure despite BiPAP like related to pulmonary embolism, bilateral pleural effusions and pneumonia in addition to likely lung cancer. Prior to intubation, patient was on BiPAP, saturating well, however was agitated in which she was given 15 mg of ketamine. Patient was intubated with rocuronium and etomidate and was put on volume control, PEEP of 9, tidal volume 490, respiratory rate. 15. Shortly after, central line in the right IJ was placed (see operative report). Flow then after attempts were made for left and right arterial radial line to be placed, however on successful attempts, he was transition to put right femoral arterial line which was placed successfully (see operative report). Shortly after, thoracostomy tube was placed on right mid axillary line which showed continuous drainage of pleural fluid which was sent for analysis including cytology. Previous fluid analyses have shown to be exudative in nature, anticipate this fluid analysis to also be exudative in nature likely related to malignancy. Patient continued to have lactic acidosis (will continue to trend every 6 hours) which was improving, however managed with fluid boluses. Patient continued to have pulse pressure variation on arterial ABG in which fluid boluses were given. Patient's repeat ABG showed pH of 7.28 and pCO2 of 48 in which the respiratory rate was increased to 20. Repeat ABG showed pH of 7.32, pCO2 of 41, and in which with additional fluid bolus was given. Heparin drip was resumed after it was stopped briefly for procedures. Patient was also started on Vasopressin as Levophed dose increased past 0.2. Shock remains to be multifactorial at this point, likely obstructive and distributive in nature. Patient continues to be on propofol and fentanyl with a RASS of -2. AM triglycerides ordered for the morning. Patient will continue to be on cefepime for pseudomonal and pneumonia coverage. Repeat chemistry and hematology in AM. ABG and CXR for AM as well. #Acute on chronic encephalopathy #History of schizophrenia #Agitation/Anxiety vs Hospital Acquired Delirium #Shock #Hypotension #Acute on chronic hypoxic respiratory failure 2/2 #Bilateral PNA #ARDS #Recurrent pleural effusions #Bilateral pulmonary emboli #Underlying COPD #Right lung mass #Bilateral Pulmonary Embolisms #Cirrhosis #Hyperbilirubinemia #Transaminitis #Anasarca #YASMIN - worsening #Lactic acidosis - Type A&B #?Contraction Alkalosis #HAGMA-improving #Electrolyte imbalance #Hypokalemia - resolving #Right upper lung mass #SURYA #PNA 2/2 GPC VS GNR #Parapneumonic Effusion Arian Gann, PGY-2 Internal Medicine Documentation for date of: 06/19/25 Subjective Subjective Interval history: Patient is a 64 year old male with past medical history of schizophrenia, COPD on supplemental home oxygen, chronic active smoker greater than 40 pack years and status post right inguinal hernia repair in 2018 who presented to ED on 05/29/25 for shortness of breath and admitted telemetry for acute on chronic hypoxic respiratory failure, pleural effusion, pneumonia and pulmonary emboli. Patient initially upgraded to ICU for acute respiratory distress and pressor support on 05/31/25 and downgraded to medicine floors s/p R thoracentesis the next day, and O2 requirements were improving. Throughout hospital stay, patient has been gradually requiring increased O2 requirements, alternating between BIPAP and HFNC. Patient has gotten three thoracentesis procedures since being admitted, started on Heparin gtt for PE seen on CTA, Lactulose, Spironolactone, and Midodrine for his cirrhosis, given scheduled antipsychotics and anxiolytics for underlying psych disorder and ongoing agitation with his BIPAP. Oncology was consulted for patient's R lung mass seen on imaging, and recommended lung biopsy when patient is stable and infection is cleared, and will f/u outpt. There was a rapid response called around 22:18 for low MAP in the mid 50s, with a BP of 72/51, despite midodrine 15mg given 30 min later. Patient also had received Clonazepam 0.25mg and Seroquel 25mg after seen very agitated and yelling at staff. Patient appears to be very somnolent, unable to state his name or mumble intelligible words. Patient?s WOB also was increasing, RR in the 30s, and decision was made to upgrade patient to ICU for vasopressor support and AHRF impending intubation d/t inability to protect airway. Patient?s brother was contacted and made aware of patient?s current status and guarded prognosis, and would patient to remain a FULL code. Shortly after patient arrived in ICU, patient was able to state his name and denied any complaints including any SOB or chest pain. At this time will hold off on intubation, as patient's WOB improved and satting well above 92% on HFNC 40L and 100% FiO2. 06/19/2025 Patient had increased work of breathing requiring intubation. His son was contacted who agreed that he would become a surrogate decision maker and consented to procedures A-line and intubation as well as central line and chest tube. Is currently on vaso 0.03 Levophed 0.21 propofol 10 fentanyl 75 his vent settings are tidal volume 470 flow 40 respiratory rate 20 PEEP of 8 FiO2 16 PEEP trigger 2 point. Initially patient was AO x 3 but became increasingly agitated with increased work of breathing and was overbreathing on BiPAP with worsening confusion which is why his son was contacted surrogate decision maker. As of now the son says his father should be full code but is amenable to revisiting the topic as we monitor his progression. The plan is to keep his MAP above 60 give albumin 25 every 6 hours continue levo and vaso titrating down to less than 0.10 from his current of 0.24. He is on fentanyl and propofol with the RASS of -2. We are considering beginning tube feeds. After 2 L of fluid was sucked from the chest tube suction was turned off and is now gravity dependent. Plan on pulmonary biopsy while patient intubated. Exam Vital Signs Temp Pulse Resp BP Pulse Ox O2 Del Method O2 Flow Rate 96.5 F L 108 H 22 H 80/56 L 98 High Flow Nasal Cannula 40 06/19/25 07:15 06/19/25 14:33 06/19/25 14:24 06/19/25 14:33 06/19/25 14:33 06/18/25 20:00 06/19/25 02:11 FiO2 100 06/19/25 14:33 Narrative Exam General Appearance: Pt appears older than stated age, in acute distress with increased work of breathing, able to communicate somewhat clearly at times, however becomes increasingly anxious and confused. HEENT: NC/AT, no scleral icterus, no conjunctival pallor, dry mucuous membranes, edentulous Lungs: Coarse breath sounds, diminished lung sounds in left lower base. No wheezing noted. CVS: RRR, S1/S2 heard, no murmurs or rubs appreciated ABD: Soft, mildly distended, non-tender, non-distended, BS + in all 4 quadrants; large left inguinal mass EXT: Pedal edema 1+ to ankles b/l. radial pulses 2+ BL, DP pulses 2 + BL SKIN: Skin exam normal without any rashes. Neuro: A&O x 3 intermittently. No gross neurological deficits. Motor and sensory grossly intact in B/L UL and LL. Objective Labs 06/21/25 04:50 06/21/25 11:00 Labs: Laboratory Results - last 24 hr 06/18/25 06/18/25 06/18/25 16:19 18:49 21:51 WBC RBC Hgb Hct MCV MCH MCHC RDW Std Deviation Plt Count Neut % (Auto) Lymph % (Auto) Haskell % (Auto) Eos % (Auto) Baso % (Auto) Neut # (Auto) Lymph # (Auto) Haskell # (Auto) Eos # (Auto) Baso # (Auto) Immature Gran # (Auto) Absolute Nucleated RBC Immature Gran % Nucleated RBC % APTT 74.8 H Puncture Site ABG pH ABG pCO2 ABG pO2 ABG HCO3 ABG O2 Saturation ABG Base Excess VBG pH 7.41 VBG pCO2 32 L VBG pO2 37 VBG O2 Sat (Siddhartha) 60 L D VBG Base Excess -4 L FiO2 Sodium 134 L Potassium 3.3 L Chloride 100 Carbon Dioxide 19.2 L Anion Gap 15 BUN 49 H Creatinine 1.6 H Estim Creat Clear Calc 47.8 L eGFR 48 L BUN/Creatinine Ratio 31 H Glucose 145 H Calculated Osmolality 284 Lactic Acid 6.5 H* 7.4 H* Calcium 9.3 Corrected Calcium 10.1 Phosphorus 3.6 Magnesium Total Bilirubin AST ALT Alkaline Phosphatase Total Protein Albumin 3.0 L Globulin Albumin/Globulin Ratio 06/19/25 06/19/25 06/19/25 01:09 05:00 06:45 WBC 27.6 H RBC 3.99 L Hgb 10.6 L Hct 35.0 L MCV 88 MCH 26.6 MCHC 30.3 L RDW Std Deviation 69.3 H Plt Count 83 L Neut % (Auto) 84 H Lymph % (Auto) 4 L Haskell % (Auto) 6 Eos % (Auto) 0 Baso % (Auto) 0 Neut # (Auto) 23.2 H Lymph # (Auto) 1.1 Haskell # (Auto) 1.6 H Eos # (Auto) 0.0 Baso # (Auto) 0.1 Immature Gran # (Auto) 1.69 H Absolute Nucleated RBC 0.12 H Immature Gran % 6 H Nucleated RBC % 0 APTT > 139.0 H* D 84.2 H D Puncture Site ABG pH ABG pCO2 ABG pO2 ABG HCO3 ABG O2 Saturation ABG Base Excess VBG pH VBG pCO2 VBG pO2 VBG O2 Sat (Siddhartha) VBG Base Excess FiO2 Sodium 133 L Potassium 3.5 Chloride 98 Carbon Dioxide 22.2 Anion Gap 13 BUN 49 H Creatinine 1.5 H Estim Creat Clear Calc 51.0 L eGFR 52 L BUN/Creatinine Ratio 33 H Glucose 147 H Calculated Osmolality 282 Lactic Acid 5.5 H* 5.3 H* Calcium 9.6 Corrected Calcium 10.3 H Phosphorus 3.2 Magnesium 2.6 Total Bilirubin 1.8 H AST 33 ALT 36 Alkaline Phosphatase 74 Total Protein 6.8 Albumin 3.1 L Globulin 3.7 H Albumin/Globulin Ratio 0.8 L 06/19/25 06/19/25 06/19/25 08:12 09:25 13:13 WBC RBC Hgb Hct MCV MCH MCHC RDW Std Deviation Plt Count Neut % (Auto) Lymph % (Auto) Haskell % (Auto) Eos % (Auto) Baso % (Auto) Neut # (Auto) Lymph # (Auto) Haskell # (Auto) Eos # (Auto) Baso # (Auto) Immature Gran # (Auto) Absolute Nucleated RBC Immature Gran % Nucleated RBC % APTT Puncture Site Right Radial Arterial Line ABG pH 7.48 H 7.26 L D ABG pCO2 30 L 48 D ABG pO2 71 L 82 L ABG HCO3 22 22 ABG O2 Saturation 95 94 ABG Base Excess -1 -6 L VBG pH VBG pCO2 VBG pO2 VBG O2 Sat (Siddhartha) VBG Base Excess FiO2 100 94 Sodium Potassium Chloride Carbon Dioxide Anion Gap BUN Creatinine Estim Creat Clear Calc eGFR BUN/Creatinine Ratio Glucose Calculated Osmolality Lactic Acid 4.3 H* Calcium Corrected Calcium Phosphorus Magnesium Total Bilirubin AST ALT Alkaline Phosphatase Total Protein Albumin Globulin Albumin/Globulin Ratio ABG Interpretation ABG results: 05/29/25 05/31/25 05/31/25 05:33 10:53 17:16 ABG pH 7.38 7.30 L 7.52 H D ABG pCO2 24 L 33 28 L ABG pO2 57 L* 125 H D 50 L* D ABG HCO3 14 L 16 L 23 ABG O2 Saturation 87 L 99 H 88 L ABG Base Excess -9 L -9 L 1 VBG pH VBG pCO2 VBG pO2 VBG Base Excess 05/31/25 06/01/25 06/03/25 23:51 05:01 20:42 ABG pH 7.49 H 7.53 H 7.54 H ABG pCO2 29 L 27 L 26 L ABG pO2 57 L* 51 L* 60 L ABG HCO3 22 23 22 ABG O2 Saturation 91 88 L 88 L ABG Base Excess 0 1 0 VBG pH VBG pCO2 VBG pO2 VBG Base Excess 06/04/25 06/06/25 06/15/25 10:17 07:58 13:20 ABG pH 7.54 H 7.50 H 7.51 H ABG pCO2 26 L 24 L 26 L ABG pO2 55 L* 50 L* 67 L ABG HCO3 22 19 L 20 ABG O2 Saturation 91 87 L 95 ABG Base Excess 1 -3 -1 VBG pH VBG pCO2 VBG pO2 VBG Base Excess 06/18/25 06/18/25 06/19/25 09:05 21:51 08:12 ABG pH 7.48 H ABG pCO2 30 L ABG pO2 71 L ABG HCO3 22 ABG O2 Saturation 95 ABG Base Excess -1 VBG pH 7.39 7.41 VBG pCO2 33 L 32 L VBG pO2 45 37 VBG Base Excess -4 L -4 L 06/19/25 13:13 ABG pH 7.26 L D ABG pCO2 48 D ABG pO2 82 L ABG HCO3 22 ABG O2 Saturation 94 ABG Base Excess -6 L VBG pH VBG pCO2 VBG pO2 VBG Base Excess Quality Measures Quality Measures VTE prophylaxis Assessment & Plan Assessment Current Active Medications: Generic Name Dose Route Start Last Admin Trade Name Freq PRN Reason Stop Dose Admin Acetaminophen 325 mg 05/29/25 12:07 06/15/25 01:21 Acetaminophen 325 Mg Tablet PO 06/28/25 12:06 325 mg Q6H PRN Administration Fever >101.5, Pain 1-3 Albuterol/Ipratropium 3 ml 05/29/25 12:07 06/14/25 13:25 Albuterol/Ipratropium (Duoneb) Rt Becky 3 Ml Nebu INH 06/28/25 12:06 3 ml Q2HR PRN Administration SHORTNESS OF BREATH OR WHEEZE Citric Acid/Sodium Citrate 30 ml 06/18/25 09:00 06/19/25 09:28 Citric Acid/Sodium Citr 15 Ml Udc (Bicitra) PO 07/18/25 08:59 Not Given BID COTY Clonazepam 0.25 mg 06/16/25 10:30 06/18/25 20:29 Clonazepam 0.5 Mg Tablet PO 06/21/25 10:29 0.25 mg On Hold: 06/19/25 02:56 BID COTY Administration Haloperidol Lactate 2.5 mg 06/10/25 07:52 Haloperidol Lact Inj 5 Mg/Ml Vial IV X1 PRN Give before procedure Protocol Heparin Sodium/Dextrose 25,000 unit in 250 mls @ 12.957 mls/hr 06/11/25 17:45 06/19/25 09:30 Heparin In D5w Ivpb IV 06/25/25 17:44 0 units/kg/hr On Hold: 06/19/25 09:07 .[id number] COTY 0 mls/hr Protocol Titration 18 UNITS/KG/HR Cefepime HCl 2 gm/ Sodium 50 mls @ 100 mls/hr 06/14/25 22:00 06/19/25 06:37 Chloride IV 06/20/25 08:29 100 mls/hr Q8HR COTY Administration Albumin Human 25 gm in 100 mls @ 100 mls/hr 06/18/25 08:00 06/19/25 08:01 Albuminex 25% Ivpb IV 06/21/25 07:59 100 mls/hr QDAY COTY Administration Norepinephrine/Dextrose 8 mg in 250 mls @ 6.625 mls/hr 06/18/25 22:26 06/19/25 10:00 Levophed In D5w 8mg/250ml IV 07/18/25 22:25 0.11 mcg/kg/min .Q24H PRN 14.576 mls/hr PER PROTOCOL Titration Protocol 0.05 MCG/KG/MIN Dexmedetomidine/Sodium Chloride 400 mcg in 100 mls @ 3.534 mls/hr 06/19/25 03:12 06/19/25 10:44 Precedex Ivpb IV 07/19/25 03:11 0 mcg/kg/hr .Q24H PRN 0 mls/hr Per PROTOCOL Titration Protocol 0.2 MCG/KG/HR Propofol 1,000 mg in 100 mls @ 2.121 mls/hr 06/19/25 10:19 06/19/25 10:50 Diprivan Ivpb IV 07/19/25 10:18 5 mcg/kg/min .Q24H PRN 2.121 mls/hr PER PROTOCOL Administration Protocol 5 MCG/KG/MIN Ipratropium [place] 0.5 mg 06/04/25 19:00 06/19/25 14:23 Ipratropium Rt 0.5 Mg/ 2.5 Ml Nebu INH 07/04/25 18:59 0.5 mg Q4HRRT COTY Administration Lactulose 30 gm 06/15/25 14:00 06/19/25 05:50 Lactulose Syrup 20 Gm/30 Ml Udc PO 07/15/25 13:59 Not Given TID COTY Protocol Levalbuterol HCl 1.25 mg 06/04/25 19:00 06/19/25 14:23 Levalbuterol Rt 1.25 Mg/0.5 Ml Nebu INH 07/04/25 18:59 1.25 mg Q4HRRT COTY Administration Melatonin 6 mg 06/15/25 21:00 06/18/25 20:30 Melatonin 3 Mg Tablet PO 07/15/25 20:59 6 mg HS COTY Administration Midodrine 15 mg 06/04/25 10:20 06/19/25 05:50 Midodrine 5 Mg Tablet PO 07/04/25 10:19 Not Given TID COTY Nicotine 21 mg 05/29/25 12:15 06/19/25 08:01 Nicotine Patch 21 Mg/24 Hr Patch.Td24 TOP 06/28/25 12:14 21 mg QDAY COTY Administration Ondansetron HCl 4 mg 05/29/25 12:07 Ondansetron Inj 2 Mg/Ml Inj 2 Ml IVP 06/28/25 12:06 Q6H PRN NAUSEA OR VOMITING Protocol Pantoprazole Sodium 40 mg 06/08/25 09:00 06/19/25 09:28 Pantoprazole 40 Mg Tablet PO 06/28/25 12:14 Not Given QDAY COTY Rifaximin 550 mg 06/19/25 09:00 06/19/25 09:28 Rifaximin 550 Mg Tablet PO 06/26/25 08:59 Not Given BID COTY Sodium Chloride 3 ml 05/31/25 10:52 06/12/25 02:33 Sodium Chloride Rt Becky 0.9% 3 Ml Nebu INH 06/30/25 10:51 3 ml PRN PRN Administration SOLN Spironolactone 25 mg 06/15/25 09:00 06/17/25 08:28 Spironolactone 25 Mg Tablet PO 07/15/25 08:59 25 mg On Hold: 06/18/25 07:23 QDAY COTY Administration Plan Patient is a 64 year old male with past medical history of schizophrenia, COPD on supplemental home oxygen, chronic active smoker greater than 40 pack years and status post right inguinal hernia repair in 2018 who presented to ED on 05/29/25 for shortness of breath and admitted telemetry for acute on chronic hypoxic respiratory failure, pleural effusion, pneumonia and pulmonary emboli and upgraded to ICU for vasopressor support and AHRF impending intubation. 06/19/2025 patient intubated, Central line (IJ), femoral arterial line (right side), and chest tube placed (draining clear red fluid). Son was spoken to as surrogate decision maker, would like to keep patient full code. NEURO #Acute on chronic encephalopathy #History of schizophrenia #Agitation/Anxiety vs Hospital Acquired Delirium Diagnostic Workup: Patient diagnosed with Schizophrenia years ago by PCP , not on any current outpt psych medications. Patient has been restless and agitated due to prolonged hospital stay and physical distress. Patient upgraded to ICU after presenting with extreme somnolence, unable to state name or speak intelligible words after receiving Seroquel 25mg HS on 06/18/25. Patient's baseline mentation is A&O x3 but has fluctuated throughout his hospital stay complicated with patient's underlying psych disorder and hosptial delirium Treatment: Has received Seroquel 25mg HS and Klonipin 0.25mg BID for his agitation, however will hold for now Avoid overuse of benzodiazepines to prevent respiratory depression. CARDIO #Undifferentiated Shock #Hypotension DDx: cirrhosis vs ongoing sepsis vs obstructive Diagnostic Workup: MAP in the mid-50s, BP 72/51 despite midodrine administration. Bedside echo shows good contractility, with plethoric and congested IVC of 2.25cm Bilateral pulmonary embolisms Treatment: IV albumin 25g for blood pressure stabilization and 500ml LR bolus given prior to bedside echo eval Midodrine 15mg TID for BP support. Levophed and additional vasopressor support as needed to maintain MAP > 65 Follow-up: Monitor blood pressure and ensure appropriate volume status. PULM #Acute on chronic hypoxic respiratory failure / #Bilateral PNA #ARDS #Recurrent pleural effusions #Bilateral pulmonary emboli #Underlying COPD #Right lung mass Diagnostic Workup: Chronic smoking history. CT scan showed bilateral pneumonia (left upper lobe and right lower lobe), large right upper lobe mass, and right hilar lymphadenopathy. Received three thoracentesis during this hospitalization which has improved with SOB Thoracentesis findings: Exudative fluid, Bacillus (likely cereus) cultured. Cytology from thoracentesis showed few atypical epithelial cells, insufficient for definitive malignancy diagnosis. CTA (06/09): Pulmonary emboli in the RLL and LLL branches. Repeated CXR shows extensive b/l PNA with ARDS picture Patient has been requiring an increase in O2 requirments, b/l opacities seen on CXR SpO2/FiO2 < 315 currently on HFNC at 40L at 100% FiO2, satting 92-96% Treatment: BiPAP transitioned to high-flow nasal cannula. Previously on Levofloxacin and started on Cefepime IV 2g every 8 hours started 06/13 for pneumonia in immunocompromised setting. Prednisone 40mg daily (completed 5-day course). DuoNeb treatments (IV and inhaled). Follow-up: Monitor for fluid reaccumulation and manage pleural effusions accordingly. Repeat CT scan in 6 months to monitor for evolution of right middle lobe consolidation. Follow-up pleural studies and lung biopsy if the lesion remains indeterminate. Once patient's PNA is cleared, patient may benefit from PleurxCath #Bilateral Pulmonary Embolisms DDx: Likely secondary to hypercoagulable state in malignancy Diagnostic Workup: CTA showed bilateral pulmonary emboli. Treatment: Heparin GTT per PE protocol and can transition to Eliquis when stable Monitor for bleeding. GI/FEN #Cirrhosis #Hyperbilirubinemia, #Transaminitis -improving #Anasarca - improving Diagnostic Workup: Chronic alcohol use. Elevated INR and thrombocytopenia indicating chronic liver pathology. Mild ascites and anasarca, improved with diuresis. AST 436 -> 41, ALT 398 -> 105. Hepatitis panel negative. Treatment: Lactulose PO 30g TID, titrated to 2-3 BMs - holding 2/2 intolerant of PO intake Restarted spironolactone 25mg PO for stable BP and kidney function, last dose received 06/18/25 this AM and will hold for now in lieu of low BP Rifaximin 550mg BID was given until 06/08, unsure why it was discontinued/held; will restart Midodrine 15mg TID for BP support. Will hold off an diuretics for now in the setting of low BP Follow-up: Monitor liver function and renal status. Outpatient follow-up with hepatology/GI. Patient unable to tolerate PO at this time d/t mental status, will resume PO meds when able RENAL #YASMIN - worsening #Lactic acidosis - Type A&B #?Contraction Alkalosis #HAGMA-improving Diagnostic Workup: Creatinine levels 1.1 --> 1.6, baseline Cr range 0.8?1.0. BUN 49, BUN/Cr ratio 31, eGFR 48 HCO3- and pH increasing on serial VBG taken today in the setting of possible overdiuresis Patient's LA continues to be elevated in the setting of possible active infection and underlying malignancy and hypoxia. Recent LA was 5.5 Treatment: Hold spironolactone and Lasix. Continue monitoring renal function with daily renal panel. Initially on Bicitra to help with HAGMA, which is improving Follow-up: Renally dose medications. Avoid overdiuresis and nephrotoxic medications. #Electrolyte imbalance #Hypokalemia - resolving Repleted with 40mEq IV -Continue to monitor, and replete as needed with daily labs HEME/ONC #Right upper lung mass Diagnostic Workup: CT revealed pulmonary mass in the right upper lobe with hilar lymphadenopathy and pleural effusion. Pleural fluid cultured Bacillus (likely cereus) and also showed very rare epithelial cells. Follow-up: Lung biopsy to confirm malignancy. Follow-up pleural fluid studies and cytology. Consider [place] imaging to assess metastasis. #SURYA Diagnostic Workup: Hemoglobin 12.4, low iron, ferritin, and TIBC normal. Treatment: No active treatment at this time. Follow-up: Start iron supplementation once infection resolves. ENDO no active issues ID #PNA 2/2 GPC VS GNR #Parapneumonic Effusion Diagnostic Workup: WBC has been increasing, currently 29; sputum Gram stain showed GPC, GNR. Pleural fluid cultured Bacillus (likely cereus). +LDH Pleural:serum 378:229 >.66 (exudative) +Protein pleural:serum 3.3:6.5 >0.5 (exudative) Treatment: Discontinued azithromycin, Zosyn, and vancomycin, levofloxacin. Started on IV Cefepime for resistant pneumonia since 06/13/25 Chest tube insertion 06/19/2025 2L out red, clear Follow-up: Monitor CBC and oxygen levels. Follow-up pleural studies and repeat cytology. Once infection clears, patient may benefit from pleurx catheter MSK no active issues PSYCH see neuro Health Maintenance: DVT prophylaxis: Heparin gtt (held will resume next morning following chest tube insertion) GI prophylaxis: PPI Diet: NPO, considering trickle feeds. Aguilar: Yes Lines: PIV, central (IJ), arterial (R fem) Tubes: Chest tube Drips: Levophed, vasopressin CODE STATUS: Full code Disposition: Admitted to ICU for AHRF and vasopressor support. Patient's care and plan discussed with my attending, Dr. Nickerson and senior resident Dr. Arian Gann. Charlie Luna, PGY-1 Attending Provider Attestation/Addendum Patient seen and examined with above resident, Charlie Luna MD. I agree with the findings, assessment, and plan of care as document except for any differences below. Patient transferred to ICU overnight. Continues to have significant impending respiratory failure, successfully intubated with no complications. Large volume of right sided pleural effusion, chest tube was placed with adequate drainage and optimization of patient's respiratory status, this was also to ensure exclusion of empyema as bacillus growth was seen on previous thoracentesis from the side. Simple fluid output suggest against significant infection/empyema may be parapneumonic pending fluid analysis. Follow-up imaging shows masslike consolidation of the right upper lobe concerning for potential malignancy. Fluid was sent for cytology analysis. In interim patient will be treated adequately for septic shock likely secondary to obstructive/healthcare associated pneumonia. Patient also has advanced COPD and significant use of methamphetamines. Follow-up culture data to help direct antibiotic coverage. Patient has hemodynamics are stable on vasopressor support now. Close monitoring and titration with arterial line placement. Patient continues to have poor prognosis though we will continue be aggressive. No family available at bedside though there is a son in [facility] that we have been able to contact with his helping make decisions for his father. Will continue to assess on a daily basis for potential recovery. Total critical care time: I personally spent 60 minutes for review of physiologic parameters, directing plan of care throughout the day, coordination of care with other specialties. This is exclusive of time spent teaching on staff or performing any separate billable procedures. Patient remains at significant risk for further morbidity and mortality warranting close monitoring care only available in the ICU. Critical care services required for acute hypoxic respiratory failure, healthcare associated pneumonia, septic shock, pleural effusion, right lung mass.
[2025-06-19] MEDS: SODIUM CHLORIDE 0.9% 500 ML 500 ML 999 ML IV ×2 (15:03→17:47)
[2025-06-19] MEDS: RINGERS LACTATED 1000 ML 1,000 ML 999 ML IV (15:03)
[2025-06-19] MEDS: VASOPRESSIN IN NS IVPB 20 UNIT/100 ML BAG 9 UNIT IV (15:07)
[2025-06-19] MEDS: fentaNYL 2,500 MCG/250 ML BAG 2,500 MCG/250 ML BAG IV (15:07)
--- NOTE | 2025-06-19 15:47 | ESOP_ITS ---
PROCEDURES: Procedure Date / Time 06/19/25 1547 Procedure Narrative Procedure Narrative: Attending Attestation: I was present for the entire procedure. No immediate complications. Patient tolerated procedure well. Post procedure chest film with adequate positioning of the catheter and no post-procedure PTX. No significant blood loss. Central Line Placement Right IJ: Indication(s): shock Informed consent obtained: obtained from surrogate decision maker and procedure done urgently Time out done, and the following verified: correct patient, side and site, procedure and patient position Patient placed on monitor/pulse ox: Yes Hand Hygiene: soap & water Max Sterile Barrier Techniques used: cap, mask, sterile gown, sterile gloves and sterile full body drape Central line prep: Chlorhexidine scrub Local anesthesia used: lidocaine 1% Amount of anesthesia used (mL): 2 Ultrasound used for placement: Yes Sterile Technique if Ultrasound used, including sterile gel: yes Central line lumen inserted: triple Post procedure: sutured in place, good blood return, all ports aspirated, flushed, capped and sterile dressing applied Post procedure x-ray: tip of catheter in good position and no pneumothorax seen Patient tolerated procedure: well EBL(ml): 2 Complications: none Procedure comment: My hands were washed immediately prior to the procedure. I wore a surgical cap, mask with protective eyewear, full gown and sterile gloves throughout the procedure. The RIGHT chest region was prepped using chlorhexidine scrub and draped in sterile fashion using a full drape and sterile probe cover and sterile gel employed. The medial and lateral heads of the sternocleidomastoid muscle were identified as was the carotid pulse. The Internal Jugular vein was identified using the ultrasound. Anesthesia was achieved over the vein using 1% lidocaine. Using real-time out of plane guidance, the introducer needle was inserted into the Internal Jugular vein under direct ultrasound visualization. Venous blood was withdrawn. The syringe was removed and a guidewire was advanced into the introducer needle. The guidewire was visualized in the Internal Jugular Vein by ultrasound. A small incision was made at the skin surface with a scalpel and the introducer needle was exchanged for a dilator over the guidewire. After appropriate dilation was obtained, the dilator was exchanged over the wire for a triple lumen central venous catheter. The wire was removed and the catheter was sutured in place. A dressing was applied over the catheter at the insertion site. The patient tolerated the procedure without any hemodynamic compromise. At time of procedure completion, all ports aspirated and flushed properly. Post- procedure chest x-ray is pending at this time.
--- NOTE | 2025-06-19 15:51 | PD.RESPROC ---
PROCEDURES: Procedure Date / Time 06/19/25 1551 Procedure Narrative Procedure Narrative: Attending Attestation: I was present for the entire procedure. Patient tolerated procedure well with no immediate complications. Chest tube clamped briefly after 2L removed and then resumed drainage. Minimal output thereafter. Follow up chest fulm shows tube in excellent position. No post procedure PTX. Percutaneous Chest Tube Indication(s): symptomatic Pleural Effusion Informed consent obtained: from patient, obtained from surrogate decision maker and procedure done urgently Time out done and verified the following: correct patient, side and site, procedure and patient position Site cleansed with: Chlorhexidine Site: right, mid and axillary Anesthetic used: 1% Lidocaine Catheter sized used: other (9 F ) Seldinger technique used: yes Chest tube connected to evacuation container: yes CXR ordered post procedure: yes Pleural fluid sent for the following test(s): cell count diff, LDH, total protein, glucose, gram stain, culture and cytology EBL(ml): 3
[2025-06-19] MEDS: Norepinephrine/D5W 8mg/250ml 8 MG/250 ML BAG 27.838 MG IV (16:15)
[2025-06-19 16:54] LABS: Pleural Fluid Mononuclear 30.9 %; Pleural Fluid Polynuclear 69.1 %; Pleural Fluid WBC 719 /cmm
[2025-06-19 17:04] LABS: Amylase,Pleural Fluid < 20 IU/L; Glucose,Pleural Fluid 115 mg/dL; LDH,Pleural Fluid 1299 IU/L; Pleural Fluid Appearance Cloudy; Pleural Fluid Color Red; Pleural Fluid RBC 57000 /cmm; Protein Total,Pleural Fluid 3.4 g/dL
[2025-06-19 17:38] LABS: Base Excess -5 (-3-3); HCO3 21 mEq/L (20-26); Inspired Oxygen, FIO2 60 %; O2 Saturation 94 % (91-98); PCO2 41 mmHg (32.0-48.0); PO2 75 mmHg (83-108); pH, Arterial 7.32 (7.35-7.45)
[2025-06-19 17:41] LABS: Allen Test Not Performed; Puncture Site Arterial Line
[2025-06-19 18:56] LABS: Partial Thromboplastin Time 49.1 Seconds (22.0-36.0)
[2025-06-19] MEDS: Heparin/D5w 25K 250 ML Ivpb 25,000 UNIT/250 ML BAG 12.957 UNIT IV (21:01)
[2025-06-20] VITALS (111 sets, daily range): BP systolic 67–300; BP diastolic 42–90; PULSE 99–133; RESP 14–37; TEMP 36.5–37.1; O2SAT 81–97; BMI 22.4
[2025-06-20] MEDS: VASOPRESSIN IN NS IVPB 20 UNIT/100 ML BAG 9 UNIT IV ×3 (00:20→22:38)
[2025-06-20] MEDS: Norepinephrine/D5W 8mg/250ml 8 MG/250 ML BAG 33.141 MG IV (01:00)
[2025-06-20] MEDS: RINGERS LACTATED 500 ML 500 ML 999 ML IV (01:52)
[2025-06-20] MEDS: IPRATROPIUM RT 0.5 MG/ 2.5 ML NEBU INH ×2 (02:39→06:40)
[2025-06-20] MEDS: LEVALBUTEROL RT 1.25 MG/0.5 ML NEBU INH ×5 (02:39→23:17)
[2025-06-20 04:10] LABS: Base Excess -8 (-3-3); HCO3 18 mEq/L (20-26); Inspired Oxygen, FIO2 21 %; O2 Saturation 91 % (91-98); PCO2 35 mmHg (32.0-48.0); PO2 63 mmHg (83-108); pH, Arterial 7.32 (7.35-7.45)
[2025-06-20 04:15] LABS: Allen Test Performed/OK; Puncture Site Right Femoral
[2025-06-20] MEDS: ALBUMIN HUMAN-KJDA 25% IVPB 25 GM/100 ML BTL IV ×2 (04:17→08:41)
[2025-06-20 04:48] LABS: Basophils # (Auto) 0.1 Thou/mm3 (0.0-0.2); Basophils % (Auto) 0 % (0-2.5); Eosinophils # (Auto) 0.0 Thou/mm3 (0.0-0.5); Eosinophils % (Auto) 0 % (0-10); Hematocrit 35.0 % (41.0-53.0); Hemoglobin 10.5 g/dL (13.5-16.0); Immature Granulocytes Auto 2.18 Thou/mm3 (0.00-0.00); Lymphocytes # (Auto) 1.2 Thou/mm3 (1.0-4.8); Lymphocytes % (Auto) 4 % (10-50); Mean Corpuscular HGB Conc 30.0 g/dl (31.0-37.0); Mean Corpuscular Hemoglobin 26.6 pg (25.0-35.0); Mean Corpuscular Volume 89 fL (80-100); Monocytes # (Auto) 1.0 Thou/mm3 (0.0-0.8); Monocytes % (Auto) 3 % (0-12); Neutrophils # (Auto) 28.2 Thou/mm3 (1.8-7.7); Neutrophils % (Auto) 86 % (37-80); Nucleated Red Blood Cell # 0.64 Thou/mm3 (0.00-0.00); Nucleated Red Blood Cell % 2 /100 WBC (0); RDW Standard Deviation 69.1 fL (35.1-43.9); Red Blood Count 3.95 Miln/mm3 (4.50-5.90); White Blood Count 32.7 Thou/mm3 (3.8-10.6)
[2025-06-20 04:50] LABS: Platelet Count 79 Thou/mm3 (140-440); Slide Review Platelets confirmed
--- NOTE | 2025-06-20 05:00 | XR_ITS ---
EXAMINATION: AP chest single view TECHNIQUE: AP portable semiupright chest single view Date and time: June 20, 2025, 0542 hours, comparison June 19, 2025 INDICATIONS: Acute hypoxic respiratory failure diagnosis hypoxic respiratory failure post intubation FINDINGS: Again noted enlarged cardiac contour, severe pneumonia ARDS left lung Pulmonary mass right upper lobe again depicted Right chest tube overlying the lower right hemithorax with no significant right pleural fluid Right internal jugular central line tip satisfactory position Endotracheal tube tip 6 cm above tracee Orogastric tube in the stomach, the tip is below the level of the film IMPRESSION: No significant change in severe left lung pneumonia ARDS No significant right pleural fluid Right chest tube right central line and endotracheal tube stable position
[2025-06-20 05:16] LABS: Partial Thromboplastin Time 81.7 Seconds (22.0-36.0)
[2025-06-20 05:18] LABS: Path Review Blood Smear Sent to Pathologist
[2025-06-20 05:23] LABS: Alanine Aminotransferase 28 U/L (10-49); Albumin, Serum 3.7 gm/dL (3.4-4.8); Albumin/Globulin Ratio 1.3 (1.2-2.2); Alkaline Phosphatase 60 U/L (46-116); Anion Gap 14 (7-16); Aspartate Amino Transferase 32 U/L (0-34); BUN/Creatinine Ratio 31 Ratio (12-20); Bilirubin,Total 2.0 mg/dL (0.3-1.2); Blood Urea Nitrogen 53 mg/dL (9-23); Calcium 8.9 mg/dL (8.3-10.6); Calcium (Corrected) 9.1 mg/dL (8.5-10.1); Carbon Dioxide 17.2 mMol/L (20.0-31.0); Chloride 102 mMol/L (98-107); Creatinine (Component) 1.7 mg/dL (0.6-1.3); Estimated Creatinine Clearance 45.1 mL/min (>60); Globulin 2.9 gm/dL (2.3-3.5); Glucose 100 mg/dL (74-106); INR 1.5 (0.9-1.3); LDH (Lactate Dehydrogenase) 140 U/L (120-246); Magnesium 2.3 mg/dL (1.6-2.6); Osmolality,Calculated 280 (275-295); Partial Thromboplastin Time 93.3 Seconds (22.0-36.0); Phosphorous 3.9 mg/dL (2.4-5.1); Potassium 3.8 mMol/L (3.4-5.1); Prothrombin Time 15.5 Seconds (9.0-12.2); Sodium 133 mMol/L (136-145); Total Protein 6.6 gm/dL (5.7-8.2); Triglycerides 85 mg/dL (30-150); eGFR 45 See Note
[2025-06-20] MEDS: CEFEPIME INJ 2 GM in SODIUM CHLORIDE 0.9% (Popper) 50 ML IV (05:23)
[2025-06-20 05:28] LABS: Lactate (Lactic Acid) 5.6 mMol/L (0.4-2.0)
[2025-06-20 08:26] LABS: Reflex Lactate? Y
[2025-06-20] MEDS: Norepinephrine/D5W 8mg/250ml 8 MG/250 ML BAG 49.048 MG IV (08:33)
[2025-06-20] MEDS: LANSOPRAZOLE 30 MG TAB.RAP.DR NG (08:40)
[2025-06-20] MEDS: NICOTINE PATCH 21 MG/24 HR PATCH.TD24 TOP (08:40)
[2025-06-20] MEDS: SODIUM CHLORIDE 0.9% 1000 ML 1,000 ML 999 ML IV ×2 (09:23→13:19)
--- NOTE | 2025-06-20 10:15 | XR_ITS ---
EXAMINATION: AP chest single view TECHNIQUE: AP portable supine chest single view Date and time: June 20, 2025, 1137 hours, comparison June 20, 2025 0452 hours INDICATIONS: Difficulty breathing, hypoxic respiratory failure this week. FINDINGS: Again noted mild enlargement cardiac contour, severe pneumonia ARDS left lung pulmonary mass right upper lobe Right central line orogastric tube or endotracheal tube stable position Right chest tube stable position IMPRESSION: No interval change
[2025-06-20] MEDS: SODIUM CHLORIDE RT SOL 0.9% 3 ML NEBU INH ×3 (10:23→23:17)
--- NOTE | 2025-06-20 10:35 | ESPR_ITS ---
<Statement entered by Arian Gann MD - 06/20/25 18:33> I have reviewed the note and agree with the resident's assessment & plan with exceptions as below. I have personally reviewed labs, imaging, home meds/prior records, examined the patient, formulated and discussed management plan with the IM team. Patient examined at bedside today. No acute overnight events. Patient continues to have adequate urine output and chest tube drainage. Patient continues to have persistent lactic acidosis, white count increased at 32, chest x-ray does show some worsening of left fluid on left lung field. ABG continues show acidosis, however improved. Left thoracentesis was performed (see operative report). Continuing to be on vasopressors including vasopressin and uptitrating Levophed (0.8). Continuing mechanical ventilation. Due to patient's poor prognosis, CODE STATUS was discussed with surrogate decision maker, son, who decided to change patient's CODE STATUS to DNR. CT abdomen and pelvis angio with contrast was done and had shown possible cholecystitis, however no acute new findings. Will continue with treatment at this time and may consider bronchoscopy with BAL. Patient's prognosis remains to be poor. Patient's pleural fluid reviewed from chest tube yesterday and shows exudative effusion. Repeat hematology chemistry in AM. #Acute on chronic encephalopathy #History of schizophrenia #Agitation/Anxiety vs Hospital Acquired Delirium #Shock #Hypotension #Acute on chronic hypoxic respiratory failure 2/2 #Bilateral PNA #ARDS #Recurrent pleural effusions #Bilateral pulmonary emboli #Underlying COPD #Right lung mass #Bilateral Pulmonary Embolisms #Cirrhosis #Hyperbilirubinemia #Transaminitis #Anasarca #YASMIN - worsening #Lactic acidosis - Type A&B #?Contraction Alkalosis #HAGMA-improving #Electrolyte imbalance #Hypokalemia - resolving #Right upper lung mass #SURYA #PNA 2/2 GPC VS GNR #Parapneumonic Effusion Arian Gann, PGY-2 Internal Medicine Documentation for date of: 06/20/25 Subjective Subjective Interval history: Patient is a 64 year old male with past medical history of schizophrenia, COPD on supplemental home oxygen, chronic active smoker greater than 40 pack years and status post right inguinal hernia repair in 2018 who presented to ED on 05/29/25 for shortness of breath and admitted telemetry for acute on chronic hypoxic respiratory failure, pleural effusion, pneumonia and pulmonary emboli. Patient initially upgraded to ICU for acute respiratory distress and pressor support on 05/31/25 and downgraded to medicine floors s/p R thoracentesis the next day, and O2 requirements were improving. Throughout hospital stay, patient has been gradually requiring increased O2 requirements, alternating between BIPAP and HFNC. Patient has gotten three thoracentesis procedures since being admitted, started on Heparin gtt for PE seen on CTA, Lactulose, Spironolactone, and Midodrine for his cirrhosis, given scheduled antipsychotics and anxiolytics for underlying psych disorder and ongoing agitation with his BIPAP. Oncology was consulted for patient's R lung mass seen on imaging, and recommended lung biopsy when patient is stable and infection is cleared, and will f/u outpt. There was a rapid response called around 22:18 for low MAP in the mid 50s, with a BP of 72/51, despite midodrine 15mg given 30 min later. Patient also had received Clonazepam 0.25mg and Seroquel 25mg after seen very agitated and yelling at staff. Patient appears to be very somnolent, unable to state his name or mumble intelligible words. Patient?s WOB also was increasing, RR in the 30s, and decision was made to upgrade patient to ICU for vasopressor support and AHRF impending intubation d/t inability to protect airway. Patient?s brother was contacted and made aware of patient?s current status and guarded prognosis, and would patient to remain a FULL code. Shortly after patient arrived in ICU, patient was able to state his name and denied any complaints including any SOB or chest pain. At this time will hold off on intubation, as patient's WOB improved and satting well above 92% on HFNC 40L and 100% FiO2. 06/19/2025 Patient had increased work of breathing requiring intubation. His son was contacted who agreed that he would become a surrogate decision maker and consented to procedures A-line and intubation as well as central line and chest tube. Is currently on vaso 0.03 Levophed 0.21 propofol 10 fentanyl 75 his vent settings are tidal volume 470 flow 40 respiratory rate 20 PEEP of 8 FiO2 16 PEEP trigger 2 point. Initially patient was AO x 3 but became increasingly agitated with increased work of breathing and was overbreathing on BiPAP with worsening confusion which is why his son was contacted surrogate decision maker. As of now the son says his father should be full code but is amenable to revisiting the topic as we monitor his progression. The plan is to keep his MAP above 60 give albumin 25 every 6 hours continue levo and vaso titrating down to less than 0.10 from his current of 0.24. He is on fentanyl and propofol with the RASS of -2. We are considering beginning tube feeds. After 2 L of fluid was sucked from the chest tube suction was turned off and is now gravity dependent. Plan on pulmonary biopsy while patient intubated. 06/20/2025 Patient is overbreathing on the ventilator setting respiratory rate is 24 ventilator is set to tidal volume 470 flow 40 respiratory rate of 20 PEEP 8 FiO2 60 PEEP triggers 2.0 this is the right internal jugular and the arterial femoral lines as well as the right sided chest tube. Drips are on for Fent 75 open 5 levo 0.4 and vaso 0.03. His pressor requirements have gone up overnight and into the day. He had 1.7 L of chest tube over last 24 hours. Patient required increasing sedation as he is getting was waking up during the day. His lactic acid is continued to rise 5.6 was five 4.3 yesterday. His ABG back with pH 7.32 pCO2 35 pO2 63 HCO3 of 18 was 21 yesterday and oxygen saturation 91%. Per [place]aston formula he has respiratory compensation, he is most likely overbreathing his respiratory rate was 24 while vent settings were in the 20s due to his lactic acidosis. His T. bili continues to rise it is 2.0 today. Pleural fluid obtained from thoracentesis yesterday was exudative LDH 1300. A left-sided thoracentesis was done today 1.5 L of fluid was drained it was dark straw colored. Planning for bronchiolar alveolar lavage today with potential for biopsy. Patient son was called and consented to both procedure. As of today for his cirrhosis were only continuing rifaximin. His heparin has been restarted. Will get a CT today to evaluate if patient's hernia is contributing to his lactic acidosis. His son was contacted and changed code status to DNR. Exam Vital Signs Temp Pulse Resp BP Pulse Ox O2 Del Method O2 Flow Rate 97.7 F 121 H 21 H 97/51 L 91 L High Flow Nasal Cannula 40 06/20/25 03:30 06/20/25 10:00 06/20/25 06:40 06/20/25 10:00 06/20/25 10:00 06/18/25 20:00 06/19/25 02:11 FiO2 60 06/20/25 07:36 Narrative Exam General Appearance: Pt appears older than stated age, ventilated and sedated HEENT: NC/AT, no scleral icterus, no conjunctival pallor, dry mucuous membranes, edentulous Lungs: Coarse breath sounds, diminished lung sounds in left lower base. No wheezing noted. CVS: RRR, S1/S2 heard, no murmurs or rubs appreciated ABD: Soft, mildly distended, non-tender, non-distended, BS + in all 4 quadrants; large left inguinal mass EXT: Pedal edema 1+ to ankles b/l. radial pulses 2+ BL, DP pulses 2 + BL SKIN: Skin exam normal without any rashes. Neuro: A&O x 3 intermittently. No gross neurological deficits. Motor and sensory grossly intact in B/L UL and LL. Objective Labs 06/21/25 04:50 06/21/25 11:00 Labs: Laboratory Results - last 24 hr 06/19/25 06/19/25 06/19/25 13:13 14:10 17:25 WBC RBC Hgb Hct MCV MCH MCHC RDW Std Deviation Plt Count Neut % (Auto) Lymph % (Auto) Baxter % (Auto) Eos % (Auto) Baso % (Auto) Neut # (Auto) Lymph # (Auto) Baxter # (Auto) Eos # (Auto) Baso # (Auto) Immature Gran # (Auto) Absolute Nucleated RBC Immature Gran % Nucleated RBC % Smear Path Review PT INR APTT Puncture Site Arterial Line Arterial Line ABG pH 7.26 L D 7.32 L ABG pCO2 48 D 41 ABG pO2 82 L 75 L ABG HCO3 22 21 ABG O2 Saturation 94 94 ABG Base Excess -6 L -5 L FiO2 94 60 Sodium Potassium Chloride Carbon Dioxide Anion Gap BUN Creatinine Estim Creat Clear Calc eGFR BUN/Creatinine Ratio Glucose Calculated Osmolality Lactic Acid Calcium Corrected Calcium Phosphorus Magnesium Total Bilirubin AST ALT Alkaline Phosphatase Lactate Dehydrogenase Total Protein Albumin Globulin Albumin/Globulin Ratio Triglycerides Pleural Color Red Pleural Appearance Cloudy Pleural WBC 719 Pleural RBC 16760 Pleural Polynuclear WBC 69.1 Pleural Mononuclear WBC 30.9 Pleural Total Protein 3.4 Pleural LDH 1299 Pleural Glucose 115 Pleural Amylase < 20 Misc Test Result 06/19/25 06/20/25 06/20/25 18:32 03:42 04:05 WBC RBC Hgb Hct MCV MCH MCHC RDW Std Deviation Plt Count Neut % (Auto) Lymph % (Auto) Baxter % (Auto) Eos % (Auto) Baso % (Auto) Neut # (Auto) Lymph # (Auto) Baxter # (Auto) Eos # (Auto) Baso # (Auto) Immature Gran # (Auto) Absolute Nucleated RBC Immature Gran % Nucleated RBC % Smear Path Review PT INR APTT 49.1 H D 81.7 H D Puncture Site Right Femoral ABG pH 7.32 L ABG pCO2 35 ABG pO2 63 L ABG HCO3 18 L ABG O2 Saturation 91 ABG Base Excess -8 L FiO2 21 Sodium Potassium Chloride Carbon Dioxide Anion Gap BUN Creatinine Estim Creat Clear Calc eGFR BUN/Creatinine Ratio Glucose Calculated Osmolality Lactic Acid Calcium Corrected Calcium Phosphorus Magnesium Total Bilirubin AST ALT Alkaline Phosphatase Lactate Dehydrogenase Total Protein Albumin Globulin Albumin/Globulin Ratio Triglycerides Pleural Color Pleural Appearance Pleural WBC Pleural RBC Pleural Polynuclear WBC Pleural Mononuclear WBC Pleural Total Protein Pleural LDH Pleural Glucose Pleural Amylase Misc Test Result 06/20/25 06/20/25 06/20/25 04:32 05:00 09:05 WBC 32.7 H D RBC 3.95 L Hgb 10.5 L Hct 35.0 L MCV 89 MCH 26.6 MCHC 30.0 L RDW Std Deviation 69.1 H Plt Count 79 L Neut % (Auto) 86 H Lymph % (Auto) 4 L Baxter % (Auto) 3 Eos % (Auto) 0 Baso % (Auto) 0 Neut # (Auto) 28.2 H Lymph # (Auto) 1.2 Baxter # (Auto) 1.0 H Eos # (Auto) 0.0 Baso # (Auto) 0.1 Immature Gran # (Auto) 2.18 H Absolute Nucleated RBC 0.64 H Immature Gran % 7 H Nucleated RBC % 2 H Smear Path Review Sent to Pathologist PT 15.5 H INR 1.5 H APTT 93.3 H D Puncture Site ABG pH ABG pCO2 ABG pO2 ABG HCO3 ABG O2 Saturation ABG Base Excess FiO2 Sodium 133 L Potassium 3.8 Chloride 102 Carbon Dioxide 17.2 L Anion Gap 14 BUN 53 H Creatinine 1.7 H Estim Creat Clear Calc 45.1 L eGFR 45 L BUN/Creatinine Ratio 31 H Glucose 100 Calculated Osmolality 280 Lactic Acid 5.6 H* Cancelled Calcium 8.9 Corrected Calcium 9.1 Phosphorus 3.9 Magnesium 2.3 Total Bilirubin 2.0 H AST 32 ALT 28 Alkaline Phosphatase 60 Lactate Dehydrogenase 140 Total Protein 6.6 Albumin 3.7 D Globulin 2.9 Albumin/Globulin Ratio 1.3 Triglycerides 85 Pleural Color Pleural Appearance Pleural WBC Pleural RBC Pleural Polynuclear WBC Pleural Mononuclear WBC Pleural Total Protein Pleural LDH Pleural Glucose Pleural Amylase Misc Test Result Platelets confirmed ABG Interpretation ABG results: 05/29/25 05/31/25 05/31/25 05:33 10:53 17:16 ABG pH 7.38 7.30 L 7.52 H D ABG pCO2 24 L 33 28 L ABG pO2 57 L* 125 H D 50 L* D ABG HCO3 14 L 16 L 23 ABG O2 Saturation 87 L 99 H 88 L ABG Base Excess -9 L -9 L 1 VBG pH VBG pCO2 VBG pO2 VBG Base Excess 05/31/25 06/01/25 06/03/25 23:51 05:01 20:42 ABG pH 7.49 H 7.53 H 7.54 H ABG pCO2 29 L 27 L 26 L ABG pO2 57 L* 51 L* 60 L ABG HCO3 22 23 22 ABG O2 Saturation 91 88 L 88 L ABG Base Excess 0 1 0 VBG pH VBG pCO2 VBG pO2 VBG Base Excess 06/04/25 06/06/25 06/15/25 10:17 07:58 13:20 ABG pH 7.54 H 7.50 H 7.51 H ABG pCO2 26 L 24 L 26 L ABG pO2 55 L* 50 L* 67 L ABG HCO3 22 19 L 20 ABG O2 Saturation 91 87 L 95 ABG Base Excess 1 -3 -1 VBG pH VBG pCO2 VBG pO2 VBG Base Excess 06/18/25 06/18/25 06/19/25 09:05 21:51 08:12 ABG pH 7.48 H ABG pCO2 30 L ABG pO2 71 L ABG HCO3 22 ABG O2 Saturation 95 ABG Base Excess -1 VBG pH 7.39 7.41 VBG pCO2 33 L 32 L VBG pO2 45 37 VBG Base Excess -4 L -4 L 1206/19/25 06/20/25 13:13 17:25 04:05 ABG pH 7.26 L D 7.32 L 7.32 L ABG pCO2 48 D 41 35 ABG pO2 82 L 75 L 63 L ABG HCO3 22 21 18 L ABG O2 Saturation 94 94 91 ABG Base Excess -6 L -5 L -8 L VBG pH VBG pCO2 VBG pO2 VBG Base Excess Quality Measures Quality Measures VTE prophylaxis Assessment & Plan Assessment Current Active Medications: Generic Name Dose Route Start Last Admin Trade Name Freq PRN Reason Stop Dose Admin Acetaminophen 325 mg 06/20/25 08:00 Acetaminophen Becky 325 Mg/10 Ml Udc NG 07/20/25 07:59 Q6H PRN Fever >101.5, Pain 1-3 Clonazepam 0.25 mg 06/16/25 10:30 06/18/25 20:29 Clonazepam 0.5 Mg Tablet PO 06/21/25 10:29 0.25 mg On Hold: 06/19/25 02:56 BID COTY Administration Heparin Sodium/Dextrose 25,000 unit in 250 mls @ 12.957 mls/hr 06/11/25 17:45 06/20/25 05:24 Heparin In D5w Ivpb IV 06/25/25 17:44 16 units/kg/hr .[id number] COTY 11.518 mls/hr Protocol Titration 18 UNITS/KG/HR Propofol 1,000 mg in 100 mls @ 2.121 mls/hr 06/19/25 10:19 06/20/25 06:00 Diprivan Ivpb IV 07/19/25 10:18 5 mcg/kg/min .Q24H PRN 2.121 mls/hr PER PROTOCOL Titration Protocol 5 MCG/KG/MIN Fentanyl Citrate 2,500 mcg in 250 mls @ 2.5 mls/hr 06/19/25 15:02 06/20/25 10:00 Sublimaze Inj 2,500 Mcg/250 Ml Bag IV 06/24/25 15:01 75 mcg/hr .Q24H PRN 7.5 mls/hr PER PROTOCOL Titration Protocol 25 MCG/HR Albumin Human 25 gm in 100 mls @ 100 mls/hr 06/19/25 15:30 06/20/25 08:41 Albuminex 25% Ivpb IV 06/22/25 15:29 100 mls/hr Q6H COTY Administration Vasopressin/Sodium Chloride 20 unit in 100 mls @ 9 mls/hr 06/19/25 15:04 06/20/25 00:20 Vasostrict/Ns Ivpb IV 07/19/25 15:03 0.03 unit/min .Q11H7M PRN 9 mls/hr PER PROTOCOL Administration Protocol 0.03 UNIT/MIN Norepinephrine/Dextrose 8 mg in 250 mls @ 6.628 mls/hr 06/19/25 15:06 06/20/25 08:15 Levophed In D5w 8mg/250ml IV 07/18/25 22:25 Infused .Q24H PRN Titration PER PROTOCOL Protocol 0.05 MCG/KG/MIN Lansoprazole 30 mg 06/20/25 09:00 06/20/25 08:40 Lansoprazole 30 Mg Tab.Deandre.Dr [email or web address] 07/20/25 08:59 30 mg QDAY COTY Administration Levalbuterol HCl 1.25 mg 06/04/25 19:00 06/20/25 10:23 Levalbuterol Rt 1.25 Mg/0.5 Ml Nebu INH 07/04/25 18:59 1.25 mg Q4HRRT COTY Administration Melatonin 6 mg 06/20/25 21:00 Melatonin 3 Mg Tablet NG 07/20/25 20:59 HS COTY Nicotine 21 mg 05/29/25 12:15 06/20/25 08:40 Nicotine Patch 21 Mg/24 Hr Patch.Td24 TOP 06/28/25 12:14 21 mg QDAY COTY Administration Ondansetron HCl 4 mg 05/29/25 12:07 Ondansetron Inj 2 Mg/Ml Inj 2 Ml IVP 06/28/25 12:06 Q6H PRN NAUSEA OR VOMITING Protocol Rifaximin 550 mg 06/20/25 09:00 06/20/25 08:44 Rifaximin 550 Mg Tablet NG 06/27/25 08:59 550 mg BID COTY Administration Sodium Chloride 3 ml 05/31/25 10:52 06/20/25 10:23 Sodium Chloride Rt Becky 0.9% 3 Ml Nebu INH 06/30/25 10:51 3 ml PRN PRN Administration SOLN Plan Patient is a 64 year old male with past medical history of schizophrenia, COPD on supplemental home oxygen, chronic active smoker greater than 40 pack years and status post right inguinal hernia repair in 2018 who presented to ED on 05/29/25 for shortness of breath and admitted telemetry for acute on chronic hypoxic respiratory failure, pleural effusion, pneumonia and pulmonary emboli and upgraded to ICU for vasopressor support and AHRF impending intubation. 06/19/2025 patient intubated, Central line (IJ), femoral arterial line (right side), and chest tube placed (draining clear red fluid). Son was spoken to as surrogate decision maker, would like to keep patient full code. 06/20/25 son was called for consent for Left sided thora and broncheolar lavage with possible biopsy. His pressor requirement continues to increase and he required increasing sedation for agitation. He has worsening hyperbilirubinemia and lactic acidosis. NEURO #Acute on chronic encephalopathy #History of schizophrenia #Agitation/Anxiety vs Hospital Acquired Delirium Diagnostic Workup: Patient diagnosed with Schizophrenia years ago by PCP , not on any current outpt psych medications. Patient has been restless and agitated due to prolonged hospital stay and physical distress. Patient upgraded to ICU after presenting with extreme somnolence, unable to state name or speak intelligible words after receiving Seroquel 25mg HS on 06/18/25. Patient's baseline mentation is A&O x3 but has fluctuated throughout his hospital stay complicated with patient's underlying psych disorder and hosptial delirium Treatment: Has received Seroquel 25mg HS and Klonipin 0.25mg BID for his agitation, however will hold for now Avoid overuse of benzodiazepines to prevent respiratory depression. CARDIO #Undifferentiated Shock #Hypotension DDx: ongoing sepsis 2/2 pneumonia vs malignancy Diagnostic Workup: Fluid responsive, pulse pressure variation >12% MAP in the mid-50s, BP 72/51 despite midodrine administration. Bedside echo shows good contractility, with plethoric and congested IVC of 2.25cm Bilateral pulmonary embolisms Treatment: IV albumin 25g for blood pressure stabilization and 500ml LR bolus given prior to bedside echo eval Midodrine 15mg TID for BP support. Levophed and additional vasopressor support as needed to maintain MAP > 65 06/20 dobutamine Follow-up: Monitor blood pressure and ensure appropriate volume status. PULM #Acute on chronic hypoxic respiratory failure 2/2 #Bilateral PNA #ARDS #Recurrent pleural effusions #Bilateral pulmonary emboli #Underlying COPD #Right lung mass Diagnostic Workup: Chronic smoking history. CT scan showed bilateral pneumonia (left upper lobe and right lower lobe), large right upper lobe mass, and right hilar lymphadenopathy. Received three thoracentesis during this hospitalization which has improved with SOB Thoracentesis findings: Exudative fluid, Bacillus (likely cereus) cultured. Cytology from thoracentesis showed few atypical epithelial cells, insufficient for definitive malignancy diagnosis. CTA (06/09): Pulmonary emboli in the RLL and LLL branches. Repeated CXR shows extensive b/l PNA with ARDS picture Patient has been requiring an increase in O2 requirments, b/l opacities seen on CXR SpO2/FiO2 < 315 currently on HFNC at 40L at 100% FiO2, satting 92-96% Treatment: BiPAP transitioned to high-flow nasal cannula. Previously on Levofloxacin and started on Cefepime IV 2g every 8 hours started 06/13 for pneumonia in immunocompromised setting. Prednisone 40mg daily (completed 5-day course). DuoNeb treatments (IV and inhaled). Multiple thoracentesis FUP cytology and fluid analysis Follow-up: Monitor for fluid reaccumulation and manage pleural effusions accordingly. Repeat CT scan in 6 months to monitor for evolution of right middle lobe consolidation. Follow-up pleural studies and lung biopsy if the lesion remains indeterminate. Once patient's PNA is cleared, patient may benefit from PleurxCath #Bilateral Pulmonary Embolisms DDx: Likely secondary to hypercoagulable state in malignancy Diagnostic Workup: CTA showed bilateral pulmonary emboli. Treatment: Heparin GTT per PE protocol and can transition to Eliquis when stable Monitor for bleeding. GI/FEN #Cirrhosis #Hyperbilirubinemia, #Transaminitis -improving #Anasarca - improving Diagnostic Workup: Chronic alcohol use. Elevated INR and thrombocytopenia indicating chronic liver pathology. Mild ascites and anasarca, improved with diuresis. AST 436 -> 41, ALT 398 -> 105. Hepatitis panel negative. Treatment: Lactulose PO 30g TID, titrated to 2-3 BMs - holding 2/2 intolerant of PO intake Restarted spironolactone 25mg PO for stable BP and kidney function, last dose received 06/18/25 this AM and will hold for now in lieu of low BP Rifaximin 550mg BID was given until 12/7, unsure why it was discontinued/held; will restart Midodrine 15mg TID for BP support. Will hold off an diuretics for now in the setting of low BP Follow-up: Monitor liver function and renal status. Outpatient follow-up with hepatology/GI. Patient unable to tolerate PO at this time d/t mental status, will resume PO meds when able RENAL #YASMIN - worsening #Lactic acidosis - Type A&B #?Contraction Alkalosis #HAGMA-improving Diagnostic Workup: Creatinine levels 1.1 --> 1.6 --> 1.7, baseline Cr range 0.8?1.0. BUN 53, BUN/Cr ratio 31, eGFR 45.1 HCO3- and pH increasing on serial VBG taken today in the setting of possible overdiuresis Patient's LA continues to be elevated in the setting of possible active infection and underlying malignancy and hypoxia. Recent LA was 5.5 Treatment: Hold spironolactone and Lasix. Continue monitoring renal function with daily renal panel. Initially on Bicitra to help with HAGMA, which is improving - holding bicitra Follow-up: Renally dose medications. Avoid overdiuresis and nephrotoxic medications. #Electrolyte imbalance #Hypokalemia - resolving Repleted with 40mEq IV -Continue to monitor, and replete as needed with daily labs HEME/ONC #Right upper lung mass Diagnostic Workup: CT revealed pulmonary mass in the right upper lobe with hilar lymphadenopathy and pleural effusion. Pleural fluid cultured Bacillus (likely cereus) and also showed very rare epithelial cells. Follow-up: Lung biopsy to confirm malignancy. Follow-up pleural fluid studies and cytology. Consider [place] imaging to assess metastasis. #SURYA Diagnostic Workup: Hemoglobin 12.4, low iron, ferritin, and TIBC normal. Treatment: No active treatment at this time. Follow-up: Start iron supplementation once infection resolves. ENDO no active issues ID #PNA 2/2 GPC VS GNR #Parapneumonic Effusion Diagnostic Workup: WBC has been increasing, currently 29; sputum Gram stain showed GPC, GNR. Pleural fluid cultured Bacillus (likely cereus). +LDH Pleural:serum 378:229 >.66 (exudative) +Protein pleural:serum 3.3:6.5 >0.5 (exudative) Treatment: Discontinued azithromycin, Zosyn, and vancomycin, levofloxacin. Started on IV Cefepime for resistant pneumonia since 06/13/25 Chest tube insertion 06/19/2025 2L out red, clear Follow-up: Monitor CBC and oxygen levels. Follow-up pleural studies and repeat cytology. Once infection clears, patient may benefit from pleurx catheter MSK no active issues PSYCH see neuro Health Maintenance: DVT prophylaxis: Heparin gtt GI prophylaxis: PPI Diet: NPO, considering trickle feeds but pressor requirement too high Aguilar: Yes Lines: PIV, central (IJ), arterial (R fem) Tubes: Chest tube Drips: Levophed, vasopressin CODE STATUS: Full code Disposition: Admitted to ICU for AHRF and vasopressor support. Patient's care and plan discussed with my attending, Dr. Nickerson and senior resident Dr. Arian Gnan. Charlie Luna, PGY-1 Attending Provider Attestation/Addendum Patient seen and examined with the above resident, Charlie Luna MD. I agree with the findings, assessment, and plan of care as documented except for any differences below. Right pleural drainage stable. Hemodynamically unchanged and respiratory compliance similarly unchanged. Still no definitive source identified and starting to favor nonseptic etiology of shock in setting of cirrhosis as well as high clinical suspicion of malignancy. Patient underwent left thoracentesis which we will send again for culture and cytology. Biopsy of the right lung mass like consolidation by IR or by bronchoscopy can be done but unlikely to change prognosis and carries some inherent risk of further rapid decline. He is being treated adequately for a pulmonary infectious process. Patient's son updated on clinical status and agreed given high risk of demise to transition to DNR/SNI status. Remains on heparin for PE, though limited pathophysiologic role now. If metabolic acidosis persists with decline in renal failure, will need to consider role for renal replacement therapy with Tablo given pressor requirement. Remains tenuous, continue supportive care for now. Total critical care time: I personally spent 40 minutes for review of physiologic parameters, directing plan of care, and coordination of care with other specialists. This is exclusive of time spent teaching housestaff or performing any separate billable procedures. The patient remains at high risk for further morbidity and mortality warranting close monitoring and care only available in the ICU. Critical care services for acute hypoxic respiratory failure, septic shock, cirrhosis, pulmonary embolism healthcare associated pneumonia.
--- NOTE | 2025-06-20 10:40 | PD.RESPROC ---
PROCEDURES: Procedure Date / Time 06/20/25 1020 Procedural Time Out Time out performed: yes Procedure Narrative Procedure Narrative: Attending attestation: I was present for entire procedure. Patient tolerated procedure well with no immediate complications. Follow-up chest x-ray shows no postprocedural pneumothorax and adequate clearance of pleural effusion and expansion of the underlying lung parenchyma. Thoracentesis Indication(s): symptomatic Pleural Effusion (intubated with worsening imaging findings, ) Informed consent obtained from: implied Time out done, and the following verified: correct patient, side and site, procedure, patient position and implants and/or equipment Ultrasound used: Yes Procedure location: lt. post pleual space Amount pleural fluid removed (ml): 1,500 EBL(ml): 2 Procedure comment: A time-out was conducted, and after reviewing the chest X-ray, the correct side was confirmed and marked. The procedure was performed alongside the ICU kindergarten assistant Dr. Nickerson. Bedside ultrasound was used to confirm the landmarks and locate the largest pocket of pleural fluid on the Left side. I cleaned my hands immediately before the procedure and wore a surgical cap, mask, protective eyewear, sterile gown, and sterile gloves throughout. The patient is sedated and intubated on [facility] ventilation, so patient remained supine with L arm lifted above the head. The site was prepped and draped in a sterile manner using a chlorhexidine scrub. A total of 10 ml of 1% lidocaine was used to anesthetize the skin, subcutaneous tissue, periosteum of the rib, and parietal pleura. A needle attached to a 60 ml syringe was inserted just superior to the rib at the selected intercostal space under ultrasound guidance. Gentle aspiration confirmed entry into the pleural space and pleural fluid return. A thoracentesis catheter was then advanced over the needle into the pleural space, and the needle was removed. Fluid was aspirated slowly and drained into evacuated collection bottles, monitoring the patient oxygenation saturations A total of 1500 ml of pleural fluid was removed without immediate complications. Samples were sent for cytology. The catheter was removed, and a sterile occlusive dressing was applied to the site. The patient tolerated the procedure well. A post-procedure chest X-ray is pending to evaluate for pneumothorax. Estimated blood loss was less than 5 cc. Case disclosed with my Attending Dr. Liya Broussard MD PGY1
[2025-06-20 10:43] LABS: Lactate (Lactic Acid) 5.7 mMol/L (0.4-2.0)
[2025-06-20 11:09] LABS: Pleural Fluid WBC 7065 /cmm
[2025-06-20 11:13] LABS: Partial Thromboplastin Time 85.3 Seconds (22.0-36.0)
[2025-06-20 11:15] LABS: Amylase,Pleural Fluid 27 IU/L; Glucose,Pleural Fluid 65 mg/dL; LDH,Pleural Fluid 698 IU/L; Protein Total,Pleural Fluid 2.9 g/dL
--- NOTE | 2025-06-20 11:26 | ECHO_ITS ---
Patient Info Name: Zen Yost Age: 64 years : 1960 Gender: Male Ht: 183 cm Wt: 75 kg BSA: 1.95 m2 BP: 89 / 69 mmHg HR: 120 bpm Exam Date: 06/20/2025 12:51 PM Admit Date: 05/29/2025 Site: [facility] Room Number: [id number] Patient Status: I Exam Type: CA echo doppler complete Phone Triage Specialist: Christina Anderson Ordering Physician: Charlie Luna Study Info Indications Shock - Primary Location: S2SX Left Ventricular Outflow Tract Name Value Normal LVOT 2D LVOT Diameter 2.2 cm LVOT Doppler LVOT Peak Velocity 67 cm/s LVOT Mean Gradient 1 mmHg LVOT VTI 10 cm LVOT VTI/AV VTI Ratio 0.7 LVOT Stroke Volume 37 ml Pulmonic Valve Name Value Normal PV Doppler PV Peak Velocity 91 cm/s Mitral Valve Name Value Normal MV Doppler MV Decel [place] 445 cm/s2 MV PHT 30 ms MV Area (PHT) 7.4 cm2 4.0-5.0 MV Diastolic Function MV E Peak Velocity 45 cm/s MV A Peak Velocity 31 cm/s MV E/A 1.5 MV Annular TDI MV Septal e' Velocity 9.8 cm/s MV E/e' (Septal) 4.6 MV Lateral e' Velocity 7.6 cm/s MV E/e' (Lateral) 6.0 MV e' Average 8.71 cm/s MV E/e' (Average) 5.3 Tricuspid Valve Name Value Normal TV Regurgitation Doppler TR Peak Velocity 140 cm/s Estimated PAP/RSVP RA Pressure 8 mmHg <=5 PA Systolic Pressure 16 mmHg <36 RV Systolic Pressure 16 mmHg <36 TV Annular TDI TV Lateral Coleen s' Velocity 10.4 cm/s >=9.5 Aortic Valve Name Value Normal AV 2D/MM AV Cusp Sep (MM) 1.6 cm AV Doppler AV Peak Velocity 86 cm/s AV Mean Gradient 2 mmHg AV VTI 14 cm AV Area (Cont Eq VTI) 2.6 cm2 >=3.0 AV Area (Cont Eq Maulik) 3.0 cm2 AV DI (Maulik) 0.78 AV Regurgitation 2D LVOT Area 3.8 cm2 Ventricles Name Value Normal LV Dimensions 2D/MM IVS Diastolic Thickness (2D) 0.6 cm 0.6-1.0 LVID Diastole (2D) 4.4 cm 4.2-5.8 LVIW Diastolic Thickness (2D) 1.0 cm 0.6-1.0 LVID Systole (2D) 3.1 cm 2.5-4.0 LVOT Diameter 2.2 cm LV Mass (2D Cubed) 109.44 g 88.00-224.00 LV Mass Index (2D Cubed) 56 g/m2 49-115 Relative Wall Thickness (2D) 0.45 <=0.42 IVS/LVIW Diastolic Thickness (2D) 0.60 0.00-1.50 LV Fractional Shortening/Ejection Fraction 2D/MM LV Fractional Shortening (2D) 30 % 25-43 LV EF (2D Teichholz) 57 % RV Dimensions 2D/MM TV Lateral Coleen s' Velocity 10.4 cm/s >=9.5 Atria Name Value Normal LA Dimensions LA Volume (4C A-L) 28 ml LA Volume (BP A-L) 27 ml Left Ventricle Left ventricular chamber dimension is normal. There is concentric remodeling noted in the left ventricle. There is indeterminate diastolic function in the left ventricle. Hypokinetic lateral LV wall. Right Ventricle Right ventricular chamber dimension is normal. Right ventricular systolic function is reduced. Left Atrium Left atrial chamber dimension is mildly enlarged. Right Atrium Right atrial chamber dimension is normal. Aortic Valve The aortic valve is trileaflet. There is no aortic valve sclerosis. There is no aortic valve stenosis with a peak velocity of 86 cm/s, mean gradient of 2 mmHg, and aortic valve area of 2.6 cm2. There is no aortic valve regurgitation. Pulmonic Valve The pulmonic valve is normal. There is no pulmonic valve stenosis. There is no pulmonic regurgitation. Mitral Valve The mitral valve has normal leaflets. There is no mitral valve stenosis. There is trace mitral valve regurgitation. Tricuspid Valve The tricuspid valve leaflets are normal. There is no tricuspid valve stenosis. There is trace tricuspid valve regurgitation. No pulmonary hypertension, estimated pulmonary arterial systolic pressure is 16 mmHg and systemic blood pressure of 89 mmHg in systole. Pericardium/Pleural There is large circumferential pericardial effusion with no evidence of tamponade. Fibrogenous exudate on the RV wall indicating chronic component of the effusion. Pleural effusion visualized with non moving debris fluid. Inferior Vena Cava Dilated inferior vena cava with >50% collapse upon inspiration consistent with normal right atrial pressure, 8 mmHg. Aorta The aortic measurements are indexed to age and body surface area. The aortic root at the sinus of Valsalva is not well visualized. The prox ascending aorta is not well visualized. Summary 1. Left ventricle size is normal and severely reduced EF. Estimated ejection fraction is 30-35%. There is indeterminate diastolic function. Severe hyopkinesis of mid to apical anterior, anterolateral and anteroseptal iqbal along with akinetic apex suggesting takotsubo cardiomyopathy vs LAD territory ischemia. Septal bounce noted. 2. There is large circumferential pericardial effusion with no evidence of tamponade. Fibrogenous exudate on the RV wall indicating chronic component of the effusion. 3. Right ventricle chamber size is normal and systolic function is reduced. Estimated RVSP is 16 mmHg. 4. The left atrium is mildly enlarged. The right atrium is normal. Trace MR and TR. 5. Non collapsing dilated IVC with estimated RA pressure> 15 mmHg. 6. Prior study from 05/30/2025. Report Signatures Finalized by Dillon Pena on 06/20/2025 06:24 PM
[2025-06-20 11:38] LABS: Pleural Fluid Appearance Hazy; Pleural Fluid Color Red; Pleural Fluid Mononuclear 17 %; Pleural Fluid Polynuclear 83 %; Pleural Fluid RBC 9000 /cmm
[2025-06-20 11:54] LABS: Base Excess, Venous -11 (-3-3); O2 Saturation, Venous 60 % (96-97); PCO2, Venous 45 mmHg (36-56); PO2, Venous 38 mmHg (15-58); pH, Venous 7.18 (7.33-7.66)
--- NOTE | 2025-06-20 11:56 | PC.RT ---
RT called to bedside fro PT desat per RN Sandra. PT 79% upon entering room. PT suctioned, cuff pressure and tube placement verified. Dr. Arguelles made aware PT Spo2 not improving more than 89% and increased WOB. Dr Arguelles stated Patient Spo2 ok and PT needed more sedation for comfort. no changes at this time.
[2025-06-20] MEDS: PROPOFOL 1,000 MG IVPB 1,000 MG/100 ML VIAL 2.121 MG IV (12:00)
[2025-06-20] MEDS: RINGERS LACTATED 1000 ML 1,000 ML 999 ML IV ×2 (12:00→14:45)
[2025-06-20] MEDS: DOBUTamine/D5w 500 MG IVPB 500 MG/250 ML BAG IV (12:55)
[2025-06-20] MEDS: Norepinephrine/NS 16mg/250ml 16 MG/250 ML BAG 34.407 MG IV (13:02)
[2025-06-20 13:27] LABS: Reflex Lactate? Y
[2025-06-20 14:03] LABS: Lactic Acid, 3 HR 6.5 mMol/L (0.4-2.0)
--- NOTE | 2025-06-20 14:05 | XR_ITS ---
Examination: . CTA abdomen, with intravenous contrast. CTA pelvis, with intravenous contrast. 2-D sagittal and coronal reconstructions. 3-D reconstructions. Date and time of exam: June 20, 2025, 1530 hours INDICATIONS: Abdominal pain and distention today, clinical diagnosis mesenteric ischemia COMPARISON: May 29, 2025 CTDI vol (mgy) 46.2 DLP (MGycm) 1079 Technique: Multiple CTA images, 2.0 mm slice thickness, obtained , abdomen, pelvis, with the high-resolution 64 slice scanner. 60 cc Isovue-300 is administered intravenously. Sagittal and coronal 2-D reconstructions are obtained. 3-D reconstructions, angiographic images are obtained. 3-D postprocessing, including vascular maximum intensity projections. Low dose protocols were performed. One or more of the following dose reduction techniques were used; automated exposure control, adjustment of the mA and/or KV according to patient size, use of iterative reconstruction technique. Findings: Pericardial effusion measuring up to 21 mm Mild enlargement cardiac contour Pneumonia right base, small bilateral pleural effusions Liver irregular in contour Spleen is not enlarged Ascites Isodense gallbladder Edematous thickened appearing gallbladder Heavy abdominal aortic calcification No significant renal artery stenoses Fluid distended: Fluid distended small bowel loops Negative for pneumoperitoneum No air in the bowel wall Urinary bladder contracted around a Aguilar catheter Left inguinal hernia containing small bowel but no incarcerated bowel Severe osteopenia Grade 1 spondylolisthesis L5 on S1 with moderate disc narrowing at this level IMPRESSION: Pericardial effusion measuring up to 21 mm Pneumonia right base Small bilateral pleural effusions. Cirrhosis. Recommend hepatobiliary sonography to confirm acute cholecystitis Mild to moderate ascites Heavy abdominal aortic calcification Mild colonic small bowel ileus but no ischemic bowel noted Left inguinal hernia containing small bowel but no incarcerated bowel
[2025-06-20] MEDS: MIDAZOLAM INJ 1 MG/ML VIAL 2 ML 4 MG IVP (15:05)
--- NOTE | 2025-06-20 15:09 | PD.RESEVENT ---
Documentation for date of: 06/20/25 Event Note Event Note: On at 15:00 the son, Oliverio Allen. the surrogate decision maker, was contacted about patient's current status. Son confirms that the patient will be DNR moving on. Understands that code status can be changed by contacting us again. Will continue treating the patient's active disease. Patient seen and reviewed with attending Dr. Nickerson and supervising senior Dr. Arian Gann. Note written by Charlie Luna MD PGY-1
[2025-06-20] MEDS: Norepinephrine/NS 16mg/250ml 16 MG/250 ML BAG 70.219 MG IV ×2 (16:54→20:13)
[2025-06-20 17:40] LABS: Lactate (Lactic Acid) 6.8 mMol/L (0.4-2.0)
[2025-06-20] MEDS: fentaNYL 2,500 MCG/250 ML BAG 2,500 MCG/250 ML BAG 12.5 MCG IV (18:16)
[2025-06-20 18:19] LABS: Partial Thromboplastin Time 109.0 Seconds (22.0-36.0)
[2025-06-20 19:32] LABS: Base Excess -16 (-3-3); HCO3 14 mEq/L (20-26); Inspired Oxygen, FIO2 60 %; O2 Saturation 90 % (91-98); PCO2 46 mmHg (32.0-48.0); PO2 72 mmHg (83-108)
[2025-06-20 19:33] LABS: Puncture Site Arterial Line; pH, Arterial 7.08 (7.35-7.45)
[2025-06-20 19:34] LABS: Allen Test Not Performed
--- NOTE | 2025-06-20 19:46 | PC.RT ---
Dr. Coon change RR to 24 per abg results.
[2025-06-20] MEDS: Heparin/D5w 25K 250 ML Ivpb 25,000 UNIT/250 ML BAG 7.918 UNIT IV (20:15)
[2025-06-20 20:36] LABS: Reflex Lactate? Y
[2025-06-20 21:11] LABS: Base Excess -16 (-3-3); HCO3 13 mEq/L (20-26); Inspired Oxygen, FIO2 60 %; O2 Saturation 90 % (91-98); PCO2 42 mmHg (32.0-48.0); PO2 69 mmHg (83-108)
[2025-06-20 21:17] LABS: Allen Test Not Performed; Puncture Site Arterial Line
[2025-06-20 21:18] LABS: Lactate (Lactic Acid) 7.7 mMol/L (0.4-2.0)
[2025-06-20 21:19] LABS: pH, Arterial 7.10 (7.35-7.45)
--- NOTE | 2025-06-20 21:21 | PC.RT ---
DR. Coon aware of abg results per will come to bedside at this time,
[2025-06-20 21:29] LABS: Albumin, Serum 3.8 gm/dL (3.4-4.8); Anion Gap 16 (7-16); BUN/Creatinine Ratio 20 Ratio (12-20); Blood Urea Nitrogen 43 mg/dL (9-23); Calcium 8.0 mg/dL (8.3-10.6); Calcium (Corrected) 8.2 mg/dL (8.5-10.1); Chloride 103 mMol/L (98-107); Creatinine (Component) 2.2 mg/dL (0.6-1.3); Estimated Creatinine Clearance 36.9 mL/min (>60); Osmolality,Calculated 270 (275-295); Phosphorous 6.0 mg/dL (2.4-5.1); Potassium 4.6 mMol/L (3.4-5.1); Sodium 131 mMol/L (136-145); eGFR 33 See Note
[2025-06-20 21:30] LABS: Carbon Dioxide 11.6 mMol/L (20.0-31.0); Glucose 48 mg/dL (74-106)
[2025-06-20] MEDS: DEXTROSE 50%-WATER INJ 50 ML SYRINGE IVP ×2 (21:32→22:36)
--- NOTE | 2025-06-20 21:33 | PC.RT ---
RR increased to [address] Roach post abg results
[2025-06-20] MEDS: Sodium Bicarb Inj 8.4% SYR 50 ML SYRINGE IV ×2 (21:35→21:38)
[2025-06-20] MEDS: Norepinephrine/NS 16mg/250ml 16 MG/250 ML BAG 98.306 MG IV (23:11)
[2025-06-21] VITALS (98 sets, daily range): BP systolic 14–119; BP diastolic 13–84; PULSE 0–128; RESP 20–31; TEMP 35.9–37.3; O2SAT 0–94; BMI 23.1
[2025-06-21 00:08] LABS: Reflex Lactate? Y
[2025-06-21 00:41] LABS: Base Excess -16 (-3-3); HCO3 13 mEq/L (20-26); Inspired Oxygen, FIO2 60 %; O2 Saturation 90 % (91-98); PCO2 40 mmHg (32.0-48.0); PO2 69 mmHg (83-108)
[2025-06-21 00:44] LABS: Allen Test Not Performed; Puncture Site Arterial Line; pH, Arterial 7.11 (7.35-7.45)
[2025-06-21] MEDS: Sodium Bicarb Inj 8.4% SYR 50 ML SYRINGE IV ×2 (01:15→04:57)
[2025-06-21] MEDS: DEXTROSE 50%-WATER INJ 50 ML SYRINGE IVP ×2 (01:27→04:56)
[2025-06-21 01:35] LABS: Lactate (Lactic Acid) 9.5 mMol/L (0.4-2.0)
[2025-06-21] MEDS: Norepinephrine/NS 16mg/250ml 16 MG/250 ML BAG 98.306 MG IV (01:44)
[2025-06-21 01:51] LABS: Albumin, Serum 3.0 gm/dL (3.4-4.8); Anion Gap 16 (7-16); BUN/Creatinine Ratio 22 Ratio (12-20); Blood Urea Nitrogen 52 mg/dL (9-23); Calcium 7.5 mg/dL (8.3-10.6); Calcium (Corrected) 8.3 mg/dL (8.5-10.1); Carbon Dioxide 16.7 mMol/L (20.0-31.0); Chloride 100 mMol/L (98-107); Creatinine (Component) 2.4 mg/dL (0.6-1.3); Estimated Creatinine Clearance 33.8 mL/min (>60); Glucose 282 mg/dL (74-106); Magnesium 2.2 mg/dL (1.6-2.6); Osmolality,Calculated 290 (275-295); Phosphorous 6.1 mg/dL (2.4-5.1); Potassium 4.1 mMol/L (3.4-5.1); Sodium 133 mMol/L (136-145); eGFR 30 See Note
[2025-06-21 02:10] LABS: Partial Thromboplastin Time 111.5 Seconds (22.0-36.0)
[2025-06-21 02:57] LABS: Allen Test Not Performed; Base Excess -16 (-3-3); HCO3 13 mEq/L (20-26); Inspired Oxygen, FIO2 60 %; O2 Saturation 91 % (91-98); PCO2 38 mmHg (32.0-48.0); PO2 69 mmHg (83-108); Puncture Site Arterial Line
[2025-06-21 02:59] LABS: pH, Arterial 7.13 (7.35-7.45)
--- NOTE | 2025-06-21 03:14 | PD.RESEVENT ---
Documentation for date of: 06/21/25 Event Note Event Note: Spoke with surrogate decision maker, Mr. Oliverio Yost, patient's son, and updated him on patient's worsening prognosis, including patient's progression in severe shock, possibly requiring dialysis. Patient's son would also like to change CODE STATUS to FULL CODE. He understands the patient's current status, and would like to proceed with full treatment at this time. Patient's care and plan discussed with my attending, Dr. Zuleta. Seema Coon, PGY-3
[2025-06-21] MEDS: SODIUM CHLORIDE RT SOL 0.9% 3 ML NEBU INH ×3 (03:16→10:20)
[2025-06-21] MEDS: LEVALBUTEROL RT 1.25 MG/0.5 ML NEBU INH ×3 (03:16→10:20)
[2025-06-21] MEDS: Norepinephrine/NS 16mg/250ml 16 MG/250 ML BAG 126.394 MG IV ×2 (03:56→05:55)
[2025-06-21 04:31] LABS: Reflex Lactate? Y
[2025-06-21 05:11] LABS: Lactate (Lactic Acid) 10.5 mMol/L (0.4-2.0)
[2025-06-21 05:13] LABS: Basophils # (Auto) 0.1 Thou/mm3 (0.0-0.2); Basophils % (Auto) 0 % (0-2.5); Eosinophils # (Auto) 0.0 Thou/mm3 (0.0-0.5); Eosinophils % (Auto) 0 % (0-10); Hematocrit 42.4 % (41.0-53.0); Hemoglobin 12.1 g/dL (13.5-16.0); Immature Granulocytes Auto 3.01 Thou/mm3 (0.00-0.00); Lymphocytes # (Auto) 1.2 Thou/mm3 (1.0-4.8); Lymphocytes % (Auto) 4 % (10-50); Mean Corpuscular HGB Conc 28.5 g/dl (31.0-37.0); Mean Corpuscular Hemoglobin 27.1 pg (25.0-35.0); Mean Corpuscular Volume 95 fL (80-100); Monocytes # (Auto) 1.8 Thou/mm3 (0.0-0.8); Monocytes % (Auto) 5 % (0-12); Neutrophils # (Auto) 26.4 Thou/mm3 (1.8-7.7); Neutrophils % (Auto) 81 % (37-80); Nucleated Red Blood Cell # 2.40 Thou/mm3 (0.00-0.00); Nucleated Red Blood Cell % 7 /100 WBC (0); RDW Standard Deviation 72.4 fL (35.1-43.9); Red Blood Count 4.47 Miln/mm3 (4.50-5.90); White Blood Count 32.5 Thou/mm3 (3.8-10.6)
[2025-06-21 05:14] LABS: Platelet Count 61 Thou/mm3 (140-440)
[2025-06-21 05:15] LABS: Slide Review Platelets confirmed
[2025-06-21 05:45] LABS: INR 1.7 (0.9-1.3); Partial Thromboplastin Time 53.9 Seconds (22.0-36.0); Prothrombin Time 17.5 Seconds (9.0-12.2)
[2025-06-21 05:47] LABS: Alanine Aminotransferase 372 U/L (10-49); Albumin, Serum 3.6 gm/dL (3.4-4.8); Albumin/Globulin Ratio 1.4 (1.2-2.2); Alkaline Phosphatase 72 U/L (46-116); Anion Gap 20 (7-16); Aspartate Amino Transferase 1260 U/L (0-34); BUN/Creatinine Ratio 26 Ratio (12-20); Bilirubin,Total 3.2 mg/dL (0.3-1.2); Blood Urea Nitrogen 66 mg/dL (9-23); Calcium 7.7 mg/dL (8.3-10.6); Calcium (Corrected) 8.0 mg/dL (8.5-10.1); Chloride 103 mMol/L (98-107); Creatinine (Component) 2.5 mg/dL (0.6-1.3); Estimated Creatinine Clearance 32.5 mL/min (>60); Globulin 2.6 gm/dL (2.3-3.5); Glucose 50 mg/dL (74-106); LDH (Lactate Dehydrogenase) 1870 U/L (120-246); Magnesium 2.4 mg/dL (1.6-2.6); Osmolality,Calculated 286 (275-295); Phosphorous 6.6 mg/dL (2.4-5.1); Potassium 4.7 mMol/L (3.4-5.1); Sodium 135 mMol/L (136-145); Total Protein 6.2 gm/dL (5.7-8.2); eGFR 28 See Note
[2025-06-21 05:49] LABS: Carbon Dioxide 12.3 mMol/L (20.0-31.0)
--- NOTE | 2025-06-21 05:54 | PD.RESPROC ---
PROCEDURES: Procedure Date / Time 06/21/25 0554 Central Line Placement Right Femoral: Indication(s): shock, poor, or inadequate peripheral venous access and other (Hemodialysis) Informed consent obtained: obtained from surrogate decision maker Time out done, and the following verified: correct patient, side and site, procedure, patient position and implants and/or equipment Patient placed on monitor/pulse ox: Yes Hand Hygiene: scrub, soap & water and alcohol-based hand rub Max Sterile Barrier Techniques used: cap, mask, sterile gown, sterile gloves and sterile full body drape Central line prep: Chlorhexidine scrub and sterile drapes applied Amount of anesthesia used (mL): 0 Ultrasound used for placement: Yes Sterile Technique if Ultrasound used, including sterile gel: yes Central line lumen inserted: triple Post procedure: sutured in place, good blood return, all ports aspirated, flushed, capped and sterile dressing applied Patient tolerated procedure: well and no complications EBL(ml): 30 Complications: none Procedure comment: Procedure done with Senior Resident Dr. Coon under supervision of Dr. Brett Nascimento, PGY2
[2025-06-21] MEDS: PHENYLEPHRINE HCL 40 MG in SODIUM CHLORIDE 0.9% 96 ML 5.618 MG IV (06:27)
[2025-06-21 06:36] LABS: Fibrinogen 357 mg/dL (175-375)
[2025-06-21 06:42] LABS: Base Excess -17 (-3-3); HCO3 12 mEq/L (20-26); Inspired Oxygen, FIO2 60 %; O2 Saturation 92 % (91-98); PCO2 38 mmHg (32.0-48.0); PO2 73 mmHg (83-108)
[2025-06-21 07:05] LABS: pH, Arterial 7.10 (7.35-7.45)
[2025-06-21] MEDS: DEXTROSE 50%-WATER INJ 50 ML SYRINGE IV ×3 (07:34→11:57)
[2025-06-21 07:35] LABS: Puncture Site Arterial Line
[2025-06-21] MEDS: ALBUMIN HUMAN-KJDA 25% IVPB 25 GM/100 ML BTL IV (07:42)
[2025-06-21 08:04] LABS: Reflex Lactate? Y
[2025-06-21] MEDS: Norepinephrine/NS 16mg/250ml 16 MG/250 ML BAG 140.438 MG IV ×4 (08:06→13:22)
[2025-06-21] MEDS: NICOTINE PATCH 21 MG/24 HR PATCH.TD24 TOP (08:07)
[2025-06-21] MEDS: LANSOPRAZOLE 30 MG TAB.RAP.DR NG (08:07)
[2025-06-21 08:31] LABS: Base Excess -16 (-3-3); HCO3 12 mEq/L (20-26); Inspired Oxygen, FIO2 21 %; O2 Saturation 94 % (91-98); PCO2 37 mmHg (32.0-48.0); PO2 80 mmHg (83-108)
[2025-06-21 08:36] LABS: Puncture Site Arterial Line; pH, Arterial 7.13 (7.35-7.45)
[2025-06-21 08:58] LABS: Lactic Acid, 3 HR 11.7 mMol/L (0.4-2.0)
[2025-06-21] MEDS: HEPARIN SOD INJ 1000 UNIT/ML VIAL 10 ML 200 UNIT IV ×3 (09:15→12:45)
[2025-06-21 09:36] LABS: Partial Thromboplastin Time > 139.0 Seconds (22.0-36.0)
--- NOTE | 2025-06-21 09:55 | PD.RESEVENT ---
Documentation for date of: 06/21/25 Event Note Event Note: 06/21/2025 09:50 Son contacted ICU. The prognosis was explained as poor, son believes DNR code status is best for his father. Will not be able to drive in from [place]. Was placed on facetime to speak with father while intubated and sedated, said his goodbyes. Will speak again about possibly initiating comfort care after 24 hours of dialysis. Patient seen and reviewed with attending Dr. Nickerson. Note written by Charlie Luna MD PGY-1
[2025-06-21] MEDS: VASOPRESSIN IN NS IVPB 20 UNIT/100 ML BAG 9 UNIT IV (10:30)
--- NOTE | 2025-06-21 10:41 | PD.RESPRO ---
Documentation for date of: 06/21/25 Exam Vital Signs Temp Pulse Resp BP Pulse Ox O2 Del Method O2 Flow Rate 98.1 F 100 28 H 119/69 86 L High Flow Nasal Cannula 40 06/21/25 05:33 06/21/25 10:30 06/21/25 10:23 06/21/25 10:30 06/21/25 07:30 06/18/25 20:00 06/19/25 02:11 FiO2 60 06/21/25 10:23 Objective Labs 06/21/25 04:50 06/21/25 04:50 Labs: Laboratory Results - last 24 hr 06/20/25 06/20/25 06/20/25 10:19 10:27 11:48 WBC RBC Hgb Hct MCV MCH MCHC RDW Std Deviation Plt Count Neut % (Auto) Lymph % (Auto) Angelina % (Auto) Eos % (Auto) Baso % (Auto) Neut # (Auto) Lymph # (Auto) Angelina # (Auto) Eos # (Auto) Baso # (Auto) Immature Gran # (Auto) Absolute Nucleated RBC Immature Gran % Nucleated RBC % PT INR APTT 85.3 H Fibrinogen Puncture Site ABG pH ABG pCO2 ABG pO2 ABG HCO3 ABG O2 Saturation ABG Base Excess VBG pH 7.18 L VBG pCO2 45 D VBG pO2 38 VBG O2 Sat (Siddhartha) 60 L VBG Base Excess -11 L FiO2 Sodium Potassium Chloride Carbon Dioxide Anion Gap BUN Creatinine Estim Creat Clear Calc eGFR BUN/Creatinine Ratio Glucose Calculated Osmolality Lactic Acid 5.7 H* Calcium Corrected Calcium Phosphorus Magnesium Total Bilirubin AST ALT Alkaline Phosphatase Lactate Dehydrogenase Total Protein Albumin Globulin Albumin/Globulin Ratio Pleural Color Red Pleural Appearance Hazy Pleural WBC 7065 Pleural RBC 9000 Pleural Polynuclear WBC 83 Pleural Mononuclear WBC 17 Pleural Total Protein 2.9 Pleural LDH 698 Pleural Glucose 65 Pleural Amylase 27 Misc Test Result 06/20/25 06/20/25 06/20/25 13:55 17:08 19:11 WBC RBC Hgb Hct MCV MCH MCHC RDW Std Deviation Plt Count Neut % (Auto) Lymph % (Auto) Angelina % (Auto) Eos % (Auto) Baso % (Auto) Neut # (Auto) Lymph # (Auto) Angelina # (Auto) Eos # (Auto) Baso # (Auto) Immature Gran # (Auto) Absolute Nucleated RBC Immature Gran % Nucleated RBC % PT INR APTT 109.0 H* D Fibrinogen Puncture Site Arterial Line ABG pH 7.08 L* D ABG pCO2 46 D ABG pO2 72 L ABG HCO3 14 L ABG O2 Saturation 90 L ABG Base Excess -16 L VBG pH VBG pCO2 VBG pO2 VBG O2 Sat (Siddhartha) VBG Base Excess FiO2 60 Sodium Potassium Chloride Carbon Dioxide Anion Gap BUN Creatinine Estim Creat Clear Calc eGFR BUN/Creatinine Ratio Glucose Calculated Osmolality Lactic Acid 6.5 H* 6.8 H* Calcium Corrected Calcium Phosphorus Magnesium Total Bilirubin AST ALT Alkaline Phosphatase Lactate Dehydrogenase Total Protein Albumin Globulin Albumin/Globulin Ratio Pleural Color Pleural Appearance Pleural WBC Pleural RBC Pleural Polynuclear WBC Pleural Mononuclear WBC Pleural Total Protein Pleural LDH Pleural Glucose Pleural Amylase Misc Test Result 06/20/25 06/20/25 06/21/25 20:55 21:03 00:33 WBC RBC Hgb Hct MCV MCH MCHC RDW Std Deviation Plt Count Neut % (Auto) Lymph % (Auto) Angelina % (Auto) Eos % (Auto) Baso % (Auto) Neut # (Auto) Lymph # (Auto) Angelina # (Auto) Eos # (Auto) Baso # (Auto) Immature Gran # (Auto) Absolute Nucleated RBC Immature Gran % Nucleated RBC % PT INR APTT Fibrinogen Puncture Site Arterial Line Arterial Line ABG pH 7.10 L* 7.11 L* ABG pCO2 42 40 ABG pO2 69 L 69 L ABG HCO3 13 L 13 L ABG O2 Saturation 90 L 90 L ABG Base Excess -16 L -16 L VBG pH VBG pCO2 VBG pO2 VBG O2 Sat (Siddhartha) VBG Base Excess FiO2 60 60 Sodium 131 L Potassium 4.6 D Chloride 103 Carbon Dioxide 11.6 L* Anion Gap 16 BUN 43 H Creatinine 2.2 H D Estim Creat Clear Calc 36.9 L eGFR 33 L BUN/Creatinine Ratio 20 Glucose 48 L* D Calculated Osmolality 270 L Lactic Acid 7.7 H* Calcium 8.0 L Corrected Calcium 8.2 L Phosphorus 6.0 H Magnesium Total Bilirubin AST ALT Alkaline Phosphatase Lactate Dehydrogenase Total Protein Albumin 3.8 Globulin Albumin/Globulin Ratio Pleural Color Pleural Appearance Pleural WBC Pleural RBC Pleural Polynuclear WBC Pleural Mononuclear WBC Pleural Total Protein Pleural LDH Pleural Glucose Pleural Amylase Misc Test Result 06/21/25 06/21/25 06/21/25 01:25 02:49 04:50 WBC 32.5 H RBC 4.47 L Hgb 12.1 L Hct 42.4 MCV 95 MCH 27.1 MCHC 28.5 L RDW Std Deviation 72.4 H Plt Count 61 L D Neut % (Auto) 81 H Lymph % (Auto) 4 L Angelina % (Auto) 5 Eos % (Auto) 0 Baso % (Auto) 0 Neut # (Auto) 26.4 H Lymph # (Auto) 1.2 Angelina # (Auto) 1.8 H Eos # (Auto) 0.0 Baso # (Auto) 0.1 Immature Gran # (Auto) 3.01 H Absolute Nucleated RBC 2.40 H Immature Gran % 9 H Nucleated RBC % 7 H PT 17.5 H INR 1.7 H APTT 111.5 H* 53.9 H D Fibrinogen 357 Puncture Site Arterial Line ABG pH 7.13 L* ABG pCO2 38 ABG pO2 69 L ABG HCO3 13 L ABG O2 Saturation 91 ABG Base Excess -16 L VBG pH VBG pCO2 VBG pO2 VBG O2 Sat (Siddhartha) VBG Base Excess FiO2 60 Sodium 133 L 135 L Potassium 4.1 D 4.7 D Chloride 100 103 Carbon Dioxide 16.7 L 12.3 L* Anion Gap 16 20 H BUN 52 H 66 H Creatinine 2.4 H 2.5 H Estim Creat Clear Calc 33.8 L 32.5 L eGFR 30 L 28 L BUN/Creatinine Ratio 22 H 26 H Glucose 282 H D 50 L D Calculated Osmolality 290 286 Lactic Acid 9.5 H* 10.5 H* Calcium 7.5 L 7.7 L Corrected Calcium 8.3 L 8.0 L Phosphorus 6.1 H 6.6 H Magnesium 2.2 2.4 Total Bilirubin 3.2 H D AST 1260 H* ALT 372 H Alkaline Phosphatase 72 Lactate Dehydrogenase 1870 H Total Protein 6.2 Albumin 3.0 L D 3.6 D Globulin 2.6 Albumin/Globulin Ratio 1.4 Pleural Color Pleural Appearance Pleural WBC Pleural RBC Pleural Polynuclear WBC Pleural Mononuclear WBC Pleural Total Protein Pleural LDH Pleural Glucose Pleural Amylase Misc Test Result Platelets confirmed 06/21/25 06/21/25 06/21/25 06:23 08:22 08:30 WBC RBC Hgb Hct MCV MCH MCHC RDW Std Deviation Plt Count Neut % (Auto) Lymph % (Auto) Angelina % (Auto) Eos % (Auto) Baso % (Auto) Neut # (Auto) Lymph # (Auto) Angelina # (Auto) Eos # (Auto) Baso # (Auto) Immature Gran # (Auto) Absolute Nucleated RBC Immature Gran % Nucleated RBC % PT INR APTT > 139.0 H* D Fibrinogen Puncture Site Arterial Line Arterial Line ABG pH 7.10 L* 7.13 L* ABG pCO2 38 37 ABG pO2 73 L 80 L ABG HCO3 12 L 12 L ABG O2 Saturation 92 94 ABG Base Excess -17 L -16 L VBG pH VBG pCO2 VBG pO2 VBG O2 Sat (Siddhartha) VBG Base Excess FiO2 60 21 Sodium Potassium Chloride Carbon Dioxide Anion Gap BUN Creatinine Estim Creat Clear Calc eGFR BUN/Creatinine Ratio Glucose Calculated Osmolality Lactic Acid 11.7 H* Calcium Corrected Calcium Phosphorus Magnesium Total Bilirubin AST ALT Alkaline Phosphatase Lactate Dehydrogenase Total Protein Albumin Globulin Albumin/Globulin Ratio Pleural Color Pleural Appearance Pleural WBC Pleural RBC Pleural Polynuclear WBC Pleural Mononuclear WBC Pleural Total Protein Pleural LDH Pleural Glucose Pleural Amylase Misc Test Result ABG Interpretation ABG results: 05/29/25 05/31/25 05/31/25 05:33 10:53 17:16 ABG pH 7.38 7.30 L 7.52 H D ABG pCO2 24 L 33 28 L ABG pO2 57 L* 125 H D 50 L* D ABG HCO3 14 L 16 L 23 ABG O2 Saturation 87 L 99 H 88 L ABG Base Excess -9 L -9 L 1 VBG pH VBG pCO2 VBG pO2 VBG Base Excess 05/31/25 06/01/25 06/03/25 23:51 05:01 20:42 ABG pH 7.49 H 7.53 H 7.54 H ABG pCO2 29 L 27 L 26 L ABG pO2 57 L* 51 L* 60 L ABG HCO3 22 23 22 ABG O2 Saturation 91 88 L 88 L ABG Base Excess 0 1 0 VBG pH VBG pCO2 VBG pO2 VBG Base Excess 06/04/25 06/06/25 06/15/25 10:17 07:58 13:20 ABG pH 7.54 H 7.50 H 7.51 H ABG pCO2 26 L 24 L 26 L ABG pO2 55 L* 50 L* 67 L ABG HCO3 22 19 L 20 ABG O2 Saturation 91 87 L 95 ABG Base Excess 1 -3 -1 VBG pH VBG pCO2 VBG pO2 VBG Base Excess 06/18/25 06/18/25 06/19/25 09:05 21:51 08:12 ABG pH 7.48 H ABG pCO2 30 L ABG pO2 71 L ABG HCO3 22 ABG O2 Saturation 95 ABG Base Excess -1 VBG pH 7.39 7.41 VBG pCO2 33 L 32 L VBG pO2 45 37 VBG Base Excess -4 L -4 L 06/19/25 06/19/25 06/20/25 13:13 17:25 04:05 ABG pH 7.26 L D 7.32 L 7.32 L ABG pCO2 48 D 41 35 ABG pO2 82 L 75 L 63 L ABG HCO3 22 21 18 L ABG O2 Saturation 94 94 91 ABG Base Excess -6 L -5 L -8 L VBG pH VBG pCO2 VBG pO2 VBG Base Excess 06/20/25 06/20/25 06/20/25 11:48 19:11 21:03 ABG pH 7.08 L* D 7.10 L* ABG pCO2 46 D 42 ABG pO2 72 L 69 L ABG HCO3 14 L 13 L ABG O2 Saturation 90 L 90 L ABG Base Excess -16 L -16 L VBG pH 7.18 L VBG pCO2 45 D VBG pO2 38 VBG Base Excess -11 L 06/21/25 06/21/25 06/21/25 00:33 02:49 06:23 ABG pH 7.11 L* 7.13 L* 7.10 L* ABG pCO2 40 38 38 ABG pO2 69 L 69 L 73 L ABG HCO3 13 L 13 L 12 L ABG O2 Saturation 90 L 91 92 ABG Base Excess -16 L -16 L -17 L VBG pH VBG pCO2 VBG pO2 VBG Base Excess 06/21/25 08:22 ABG pH 7.13 L* ABG pCO2 37 ABG pO2 80 L ABG HCO3 12 L ABG O2 Saturation 94 ABG Base Excess -16 L VBG pH VBG pCO2 VBG pO2 VBG Base Excess Quality Measures Quality Measures VTE prophylaxis Assessment & Plan Assessment Current Active Medications: Generic Name Dose Route Start Last Admin Trade Name Freq PRN Reason Stop Dose Admin Acetaminophen 325 mg 06/20/25 08:00 Acetaminophen Becky 325 Mg/10 Ml Udc NG 07/20/25 07:59 Q6H PRN Fever >101.5, Pain 1-3 Dextrose 50 ml 06/21/25 10:23 Dextrose 50%-Water Inj 50 Ml Syringe IV 07/20/25 21:41 Q15MIN PRN BG <70 Heparin Sodium (Porcine) 200 unit 06/21/25 08:16 06/21/25 09:15 Heparin Sod Inj 1000 Unit/Ml Vial 10 Ml IV 06/27/25 08:17 200 unit X1 PRN Administration DIALYSIS Heparin Sodium/Dextrose 25,000 unit in 250 mls @ 12.957 mls/hr 06/11/25 17:45 06/21/25 09:40 Heparin In D5w Ivpb IV 06/25/25 17:44 0 units/kg/hr .[id number] COTY 0 mls/hr Protocol Titration 18 UNITS/KG/HR Propofol 1,000 mg in 100 mls @ 2.121 mls/hr 06/19/25 10:19 06/21/25 08:05 Diprivan Ivpb IV 07/19/25 10:18 5 mcg/kg/min .Q24H PRN 2.121 mls/hr PER PROTOCOL Titration Protocol 5 MCG/KG/MIN Fentanyl Citrate 2,500 mcg in 250 mls @ 2.5 mls/hr 06/19/25 15:02 06/21/25 09:00 Sublimaze Inj 2,500 Mcg/250 Ml Bag IV 06/24/25 15:01 125 mcg/hr .Q24H PRN 12.5 mls/hr PER PROTOCOL Titration Protocol 25 MCG/HR Vasopressin/Sodium Chloride 20 unit in 100 mls @ 9 mls/hr 06/19/25 15:04 06/20/25 22:38 Vasostrict/Ns Ivpb IV 07/19/25 15:03 0.03 unit/min .Q11H7M PRN 9 mls/hr PER PROTOCOL Administration Protocol 0.03 UNIT/MIN Norepinephrine Bitartrate 16 mg in 250 mls @ 3.511 mls/hr 06/20/25 12:05 06/21/25 09:45 Levophed In Ns 16mg/250ml IV 07/20/25 12:04 2 mcg/kg/min .Q24H PRN 140.438 mls/hr PER protocol Administration Protocol 0.05 MCG/KG/MIN Phenylephrine HCl 40 mg/ 100 mls @ 5.618 mls/hr 06/21/25 06:01 06/21/25 09:00 Sodium Chloride IV 07/21/25 06:00 1 mcg/kg/min .[id number] PRN 11.235 mls/hr Per Sepsis Protocol Titration Protocol 0.5 MCG/KG/MIN Sodium Bicarbonate 88.23 meq/ 588.23 mls @ 100 mls/hr 06/21/25 09:35 Dextrose IV 07/21/25 09:34 .[id number] COTY Lansoprazole 30 mg 06/20/25 09:00 06/21/25 08:07 Lansoprazole 30 Mg Tab.Rap.Dr VEGA 07/20/25 08:59 30 mg QDAY COTY Administration Midazolam HCl 4 mg 06/20/25 14:53 Midazolam Inj 1 Mg/Ml Vial 2 Ml IVP X1 PRN agitation Nicotine 21 mg 05/29/25 12:15 06/21/25 08:07 Nicotine Patch 21 Mg/24 Hr Patch.Td24 TOP 06/28/25 12:14 21 mg QDAY COTY Administration Ondansetron HCl 4 mg 05/29/25 12:07 Ondansetron Inj 2 Mg/Ml Inj 2 Ml IVP 06/28/25 12:06 Q6H PRN NAUSEA OR VOMITING Protocol Rifaximin 550 mg 06/20/25 09:00 06/21/25 08:07 Rifaximin 550 Mg Tablet NG 06/27/25 08:59 550 mg BID COTY Administration Sodium Chloride 3 ml 05/31/25 10:52 06/21/25 10:20 Sodium Chloride Rt Becky 0.9% 3 Ml Nebu INH 06/30/25 10:51 3 ml PRN PRN Administration SOLN
[2025-06-21] MEDS: Sodium Bicarb 8.4% 50ml Vial* 88.23 MEQ in DEXTROSE 5%-WATER 500 ML 100 MEQ IV (11:00)
--- NOTE | 2025-06-21 11:00 | ESPR_ITS ---
Documentation for date of: 06/21/25 Subjective Subjective Interval history: Patient is a 64 year old male with past medical history of schizophrenia, COPD on supplemental home oxygen, chronic active smoker greater than 40 pack years and status post right inguinal hernia repair in 2018 who presented to ED on 05/29/25 for shortness of breath and admitted telemetry for acute on chronic hypoxic respiratory failure, pleural effusion, pneumonia and pulmonary emboli. Patient initially upgraded to ICU for acute respiratory distress and pressor support on 05/31/25 and downgraded to medicine floors s/p R thoracentesis the next day, and O2 requirements were improving. Throughout hospital stay, patient has been gradually requiring increased O2 requirements, alternating between BIPAP and HFNC. Patient has gotten three thoracentesis procedures since being admitted, started on Heparin gtt for PE seen on CTA, Lactulose, Spironolactone, and Midodrine for his cirrhosis, given scheduled antipsychotics and anxiolytics for underlying psych disorder and ongoing agitation with his BIPAP. Oncology was consulted for patient's R lung mass seen on imaging, and recommended lung biopsy when patient is stable and infection is cleared, and will f/u outpt. There was a rapid response called around 22:18 for low MAP in the mid 50s, with a BP of 72/51, despite midodrine 15mg given 30 min later. Patient also had received Clonazepam 0.25mg and Seroquel 25mg after seen very agitated and yelling at staff. Patient appears to be very somnolent, unable to state his name or mumble intelligible words. Patient?s WOB also was increasing, RR in the 30s, and decision was made to upgrade patient to ICU for vasopressor support and AHRF impending intubation d/t inability to protect airway. Patient?s brother was contacted and made aware of patient?s current status and guarded prognosis, and would patient to remain a FULL code. Shortly after patient arrived in ICU, patient was able to state his name and denied any complaints including any SOB or chest pain. At this time will hold off on intubation, as patient's WOB improved and satting well above 92% on HFNC 40L and 100% FiO2. 06/19/2025 Patient had increased work of breathing requiring intubation. His son was contacted who agreed that he would become a surrogate decision maker and consented to procedures A-line and intubation as well as central line and chest tube. Is currently on vaso 0.03 Levophed 0.21 propofol 10 fentanyl 75 his vent settings are tidal volume 470 flow 40 respiratory rate 20 PEEP of 8 FiO2 16 PEEP trigger 2 point. Initially patient was AO x 3 but became increasingly agitated with increased work of breathing and was overbreathing on BiPAP with worsening confusion which is why his son was contacted surrogate decision maker. As of now the son says his father should be full code but is amenable to revisiting the topic as we monitor his progression. The plan is to keep his MAP above 60 give albumin 25 every 6 hours continue levo and vaso titrating down to less than 0.10 from his current of 0.24. He is on fentanyl and propofol with the RASS of -2. We are considering beginning tube feeds. After 2 L of fluid was sucked from the chest tube suction was turned off and is now gravity dependent. Plan on pulmonary biopsy while patient intubated. 06/20/2025 Patient is overbreathing on the ventilator setting respiratory rate is 24 ventilator is set to tidal volume 470 flow 40 respiratory rate of 20 PEEP 8 FiO2 60 PEEP triggers 2.0 this is the right internal jugular and the arterial femoral lines as well as the right sided chest tube. Drips are on for Fent 75 open 5 levo 0.4 and vaso 0.03. His pressor requirements have gone up overnight and into the day. He had 1.7 L of chest tube over last 24 hours. Patient required increasing sedation as he is getting was waking up during the day. His lactic acid is continued to rise 5.6 was five 4.3 yesterday. His ABG back with pH 7.32 pCO2 35 pO2 63 HCO3 of 18 was 21 yesterday and oxygen saturation 91%. Per [place] formula he has respiratory compensation, he is most likely overbreathing his respiratory rate was 24 while vent settings were in the 20s due to his lactic acidosis. His T. bili continues to rise it is 2.0 today. Pleural fluid obtained from thoracentesis yesterday was exudative LDH 1300. A left-sided thoracentesis was done today 1.5 L of fluid was drained it was dark straw colored. Planning for bronchiolar alveolar lavage today with potential for biopsy. Patient son was called and consented to both procedure. As of today for his cirrhosis were only continuing rifaximin. His heparin has been restarted. Will get a CT today to evaluate if patient's hernia is contributing to his lactic acidosis. His son was contacted and changed code status to DNR. 06/21/2025 Overnight patient had increased pressor requirements. ABG came back with a pH of 7.1 patient requiring emergent dialysis was started on Tablo. Family was spoken to the son says to go back to full code. Urine output overnight he is given 4 amps of bicarb did not resolve acid status. On initial examination today patient was on dialysis. The machine clotted and he lost 200 cc of blood. He discontinued the heparin drip. He had Genell and D50 with a bicarb drip. Lines he is on Fent 125 propyl 5 levo 20 vaso 0.03 and phenylephrine 1.5. His ABG shows continuously have low pH of 7.17 and gap is 20. Lactic acidosis continues to rise to 10. T. bili continues to be elevated 3.2. He now has shock liver with AST of 1260 ALT of 372 ALP of 72 LDH was 1870. Family was contacted again in regards to the patient's multiorgan failure and shock. The son agreed that father will not be DNR. He is agreeable to talking about comfort measures after giving dialysis a chance . He was explained that the prognosis is poor and the son was allowed to FaceTime his father to say goodbye. Exam Vital Signs Temp Pulse Resp BP Pulse Ox O2 Del Method O2 Flow Rate 98.1 F 103 H 28 H 111/64 86 L High Flow Nasal Cannula 40 06/21/25 05:33 06/21/25 10:45 06/21/25 10:23 06/21/25 10:45 06/21/25 07:30 06/18/25 20:00 06/19/25 02:11 FiO2 60 06/21/25 10:23 Narrative Exam General Appearance: Pt appears older than stated age, ventilated and sedated HEENT: NC/AT, no scleral icterus, no conjunctival pallor, dry mucuous membranes, edentulous Lungs: Coarse breath sounds, diminished lung sounds in left lower base. No wheezing noted. CVS: RRR, S1/S2 heard, no murmurs or rubs appreciated ABD: Soft, mildly distended, non-tender, non-distended, BS + in all 4 quadrants; large left inguinal mass EXT: Pedal edema 2+ to ankles b/l. radial pulses 2+ BL, DP pulses 2 + BL SKIN: Skin exam normal without any rashes. Neuro: No gross neurological deficits. Motor and sensory grossly intact in B/L UL and LL. Objective Labs 06/21/25 04:50 06/21/25 11:00 Labs: Laboratory Results - last 24 hr 06/20/25 06/20/25 06/20/25 10:19 10:27 11:48 WBC RBC Hgb Hct MCV MCH MCHC RDW Std Deviation Plt Count Neut % (Auto) Lymph % (Auto) Florence % (Auto) Eos % (Auto) Baso % (Auto) Neut # (Auto) Lymph # (Auto) Florence # (Auto) Eos # (Auto) Baso # (Auto) Immature Gran # (Auto) Absolute Nucleated RBC Immature Gran % Nucleated RBC % PT INR APTT 85.3 H Fibrinogen Puncture Site ABG pH ABG pCO2 ABG pO2 ABG HCO3 ABG O2 Saturation ABG Base Excess VBG pH 7.18 L VBG pCO2 45 D VBG pO2 38 VBG O2 Sat (Siddhartha) 60 L VBG Base Excess -11 L FiO2 Sodium Potassium Chloride Carbon Dioxide Anion Gap BUN Creatinine Estim Creat Clear Calc eGFR BUN/Creatinine Ratio Glucose Calculated Osmolality Lactic Acid Calcium Corrected Calcium Phosphorus Magnesium Total Bilirubin AST ALT Alkaline Phosphatase Lactate Dehydrogenase Total Protein Albumin Globulin Albumin/Globulin Ratio Pleural Color Red Pleural Appearance Hazy Pleural WBC 7065 Pleural RBC 9000 Pleural Polynuclear WBC 83 Pleural Mononuclear WBC 17 Pleural Total Protein 2.9 Pleural LDH 698 Pleural Glucose 65 Pleural Amylase 27 Misc Test Result 06/20/25 06/20/25 06/20/25 13:55 17:08 19:11 WBC RBC Hgb Hct MCV MCH MCHC RDW Std Deviation Plt Count Neut % (Auto) Lymph % (Auto) Florence % (Auto) Eos % (Auto) Baso % (Auto) Neut # (Auto) Lymph # (Auto) Florence # (Auto) Eos # (Auto) Baso # (Auto) Immature Gran # (Auto) Absolute Nucleated RBC Immature Gran % Nucleated RBC % PT INR APTT 109.0 H* D Fibrinogen Puncture Site Arterial Line ABG pH 7.08 L* D ABG pCO2 46 D ABG pO2 72 L ABG HCO3 14 L ABG O2 Saturation 90 L ABG Base Excess -16 L VBG pH VBG pCO2 VBG pO2 VBG O2 Sat (Siddhartha) VBG Base Excess FiO2 60 Sodium Potassium Chloride Carbon Dioxide Anion Gap BUN Creatinine Estim Creat Clear Calc eGFR BUN/Creatinine Ratio Glucose Calculated Osmolality Lactic Acid 6.5 H* 6.8 H* Calcium Corrected Calcium Phosphorus Magnesium Total Bilirubin AST ALT Alkaline Phosphatase Lactate Dehydrogenase Total Protein Albumin Globulin Albumin/Globulin Ratio Pleural Color Pleural Appearance Pleural WBC Pleural RBC Pleural Polynuclear WBC Pleural Mononuclear WBC Pleural Total Protein Pleural LDH Pleural Glucose Pleural Amylase Misc Test Result 06/20/25 06/20/25 06/21/25 20:55 21:03 00:33 WBC RBC Hgb Hct MCV MCH MCHC RDW Std Deviation Plt Count Neut % (Auto) Lymph % (Auto) Florence % (Auto) Eos % (Auto) Baso % (Auto) Neut # (Auto) Lymph # (Auto) Florence # (Auto) Eos # (Auto) Baso # (Auto) Immature Gran # (Auto) Absolute Nucleated RBC Immature Gran % Nucleated RBC % PT INR APTT Fibrinogen Puncture Site Arterial Line Arterial Line ABG pH 7.10 L* 7.11 L* ABG pCO2 42 40 ABG pO2 69 L 69 L ABG HCO3 13 L 13 L ABG O2 Saturation 90 L 90 L ABG Base Excess -16 L -16 L VBG pH VBG pCO2 VBG pO2 VBG O2 Sat (Siddhartha) VBG Base Excess FiO2 60 60 Sodium 131 L Potassium 4.6 D Chloride 103 Carbon Dioxide 11.6 L* Anion Gap 16 BUN 43 H Creatinine 2.2 H D Estim Creat Clear Calc 36.9 L eGFR 33 L BUN/Creatinine Ratio 20 Glucose 48 L* D Calculated Osmolality 270 L Lactic Acid 7.7 H* Calcium 8.0 L Corrected Calcium 8.2 L Phosphorus 6.0 H Magnesium Total Bilirubin AST ALT Alkaline Phosphatase Lactate Dehydrogenase Total Protein Albumin 3.8 Globulin Albumin/Globulin Ratio Pleural Color Pleural Appearance Pleural WBC Pleural RBC Pleural Polynuclear WBC Pleural Mononuclear WBC Pleural Total Protein Pleural LDH Pleural Glucose Pleural Amylase Misc Test Result 06/21/25 06/21/25 06/21/25 01:25 02:49 04:50 WBC 32.5 H RBC 4.47 L Hgb 12.1 L Hct 42.4 MCV 95 MCH 27.1 MCHC 28.5 L RDW Std Deviation 72.4 H Plt Count 61 L D Neut % (Auto) 81 H Lymph % (Auto) 4 L Florence % (Auto) 5 Eos % (Auto) 0 Baso % (Auto) 0 Neut # (Auto) 26.4 H Lymph # (Auto) 1.2 Florence # (Auto) 1.8 H Eos # (Auto) 0.0 Baso # (Auto) 0.1 Immature Gran # (Auto) 3.01 H Absolute Nucleated RBC 2.40 H Immature Gran % 9 H Nucleated RBC % 7 H PT 17.5 H INR 1.7 H APTT 111.5 H* 53.9 H D Fibrinogen 357 Puncture Site Arterial Line ABG pH 7.13 L* ABG pCO2 38 ABG pO2 69 L ABG HCO3 13 L ABG O2 Saturation 91 ABG Base Excess -16 L VBG pH VBG pCO2 VBG pO2 VBG O2 Sat (Siddhartha) VBG Base Excess FiO2 60 Sodium 133 L 135 L Potassium 4.1 D 4.7 D Chloride 100 103 Carbon Dioxide 16.7 L 12.3 L* Anion Gap 16 20 H BUN 52 H 66 H Creatinine 2.4 H 2.5 H Estim Creat Clear Calc 33.8 L 32.5 L eGFR 30 L 28 L BUN/Creatinine Ratio 22 H 26 H Glucose 282 H D 50 L D Calculated Osmolality 290 286 Lactic Acid 9.5 H* 10.5 H* Calcium 7.5 L 7.7 L Corrected Calcium 8.3 L 8.0 L Phosphorus 6.1 H 6.6 H Magnesium 2.2 2.4 Total Bilirubin 3.2 H D AST 1260 H* ALT 372 H Alkaline Phosphatase 72 Lactate Dehydrogenase 1870 H Total Protein 6.2 Albumin 3.0 L D 3.6 D Globulin 2.6 Albumin/Globulin Ratio 1.4 Pleural Color Pleural Appearance Pleural WBC Pleural RBC Pleural Polynuclear WBC Pleural Mononuclear WBC Pleural Total Protein Pleural LDH Pleural Glucose Pleural Amylase Misc Test Result Platelets confirmed 06/21/25 06/21/25 06/21/25 06:23 08:22 08:30 WBC RBC Hgb Hct MCV MCH MCHC RDW Std Deviation Plt Count Neut % (Auto) Lymph % (Auto) Florence % (Auto) Eos % (Auto) Baso % (Auto) Neut # (Auto) Lymph # (Auto) Florence # (Auto) Eos # (Auto) Baso # (Auto) Immature Gran # (Auto) Absolute Nucleated RBC Immature Gran % Nucleated RBC % PT INR APTT > 139.0 H* D Fibrinogen Puncture Site Arterial Line Arterial Line ABG pH 7.10 L* 7.13 L* ABG pCO2 38 37 ABG pO2 73 L 80 L ABG HCO3 12 L 12 L ABG O2 Saturation 92 94 ABG Base Excess -17 L -16 L VBG pH VBG pCO2 VBG pO2 VBG O2 Sat (Siddhartha) VBG Base Excess FiO2 60 21 Sodium Potassium Chloride Carbon Dioxide Anion Gap BUN Creatinine Estim Creat Clear Calc eGFR BUN/Creatinine Ratio Glucose Calculated Osmolality Lactic Acid 11.7 H* Calcium Corrected Calcium Phosphorus Magnesium Total Bilirubin AST ALT Alkaline Phosphatase Lactate Dehydrogenase Total Protein Albumin Globulin Albumin/Globulin Ratio Pleural Color Pleural Appearance Pleural WBC Pleural RBC Pleural Polynuclear WBC Pleural Mononuclear WBC Pleural Total Protein Pleural LDH Pleural Glucose Pleural Amylase Misc Test Result ABG Interpretation ABG results: 05/29/25 05/31/25 05/31/25 05:33 10:53 17:16 ABG pH 7.38 7.30 L 7.52 H D ABG pCO2 24 L 33 28 L ABG pO2 57 L* 125 H D 50 L* D ABG HCO3 14 L 16 L 23 ABG O2 Saturation 87 L 99 H 88 L ABG Base Excess -9 L -9 L 1 VBG pH VBG pCO2 VBG pO2 VBG Base Excess 05/31/25 06/01/25 06/03/25 23:51 05:01 20:42 ABG pH 7.49 H 7.53 H 7.54 H ABG pCO2 29 L 27 L 26 L ABG pO2 57 L* 51 L* 60 L ABG HCO3 22 23 22 ABG O2 Saturation 91 88 L 88 L ABG Base Excess 0 1 0 VBG pH VBG pCO2 VBG pO2 VBG Base Excess 06/04/25 06/06/25 06/15/25 10:17 07:58 13:20 ABG pH 7.54 H 7.50 H 7.51 H ABG pCO2 26 L 24 L 26 L ABG pO2 55 L* 50 L* 67 L ABG HCO3 22 19 L 20 ABG O2 Saturation 91 87 L 95 ABG Base Excess 1 -3 -1 VBG pH VBG pCO2 VBG pO2 VBG Base Excess 06/18/25 06/18/25 06/19/25 09:05 21:51 08:12 ABG pH 7.48 H ABG pCO2 30 L ABG pO2 71 L ABG HCO3 22 ABG O2 Saturation 95 ABG Base Excess -1 VBG pH 7.39 7.41 VBG pCO2 33 L 32 L VBG pO2 45 37 VBG Base Excess -4 L -4 L 06/19/25 06/19/25 06/20/25 13:13 17:25 04:05 ABG pH 7.26 L D 7.32 L 7.32 L ABG pCO2 48 D 41 35 ABG pO2 82 L 75 L 63 L ABG HCO3 22 21 18 L ABG O2 Saturation 94 94 91 ABG Base Excess -6 L -5 L -8 L VBG pH VBG pCO2 VBG pO2 VBG Base Excess 06/20/25 06/20/25 06/20/25 11:48 19:11 21:03 ABG pH 7.08 L* D 7.10 L* ABG pCO2 46 D 42 ABG pO2 72 L 69 L ABG HCO3 14 L 13 L ABG O2 Saturation 90 L 90 L ABG Base Excess -16 L -16 L VBG pH 7.18 L VBG pCO2 45 D VBG pO2 38 VBG Base Excess -11 L 06/21/25 06/21/25 06/21/25 00:33 02:49 06:23 ABG pH 7.11 L* 7.13 L* 7.10 L* ABG pCO2 40 38 38 ABG pO2 69 L 69 L 73 L ABG HCO3 13 L 13 L 12 L ABG O2 Saturation 90 L 91 92 ABG Base Excess -16 L -16 L -17 L VBG pH VBG pCO2 VBG pO2 VBG Base Excess 06/21/25 08:22 ABG pH 7.13 L* ABG pCO2 37 ABG pO2 80 L ABG HCO3 12 L ABG O2 Saturation 94 ABG Base Excess -16 L VBG pH VBG pCO2 VBG pO2 VBG Base Excess Quality Measures Quality Measures VTE prophylaxis Assessment & Plan Assessment Current Active Medications: Generic Name Dose Route Start Last Admin Trade Name Freq PRN Reason Stop Dose Admin Acetaminophen 325 mg 06/20/25 08:00 Acetaminophen Becky 325 Mg/10 Ml Udc NG 07/20/25 07:59 Q6H PRN Fever >101.5, Pain 1-3 Dextrose 50 ml 06/21/25 10:23 Dextrose 50%-Water Inj 50 Ml Syringe IV 07/20/25 21:41 Q15MIN PRN BG <70 Heparin Sodium (Porcine) 200 unit 06/21/25 08:16 06/21/25 09:15 Heparin Sod Inj 1000 Unit/Ml Vial 10 Ml IV 06/27/25 08:17 200 unit X1 PRN Administration DIALYSIS Heparin Sodium/Dextrose 25,000 unit in 250 mls @ 12.957 mls/hr 06/11/25 17:45 06/21/25 09:40 Heparin In D5w Ivpb IV 06/25/25 17:44 0 units/kg/hr .[id number] COTY 0 mls/hr Protocol Titration 18 UNITS/KG/HR Propofol 1,000 mg in 100 mls @ 2.121 mls/hr 06/19/25 10:19 06/21/25 08:05 Diprivan Ivpb IV 07/19/25 10:18 5 mcg/kg/min .Q24H PRN 2.121 mls/hr PER PROTOCOL Titration Protocol 5 MCG/KG/MIN Fentanyl Citrate 2,500 mcg in 250 mls @ 2.5 mls/hr 06/19/25 15:02 06/21/25 09:00 Sublimaze Inj 2,500 Mcg/250 Ml Bag IV 06/24/25 15:01 125 mcg/hr .Q24H PRN 12.5 mls/hr PER PROTOCOL Titration Protocol 25 MCG/HR Vasopressin/Sodium Chloride 20 unit in 100 mls @ 9 mls/hr 06/19/25 15:04 06/20/25 22:38 Vasostrict/Ns Ivpb IV 07/19/25 15:03 0.03 unit/min .Q11H7M PRN 9 mls/hr PER PROTOCOL Administration Protocol 0.03 UNIT/MIN Norepinephrine Bitartrate 16 mg in 250 mls @ 3.511 mls/hr 06/20/25 12:05 06/21/25 09:45 Levophed In Ns 16mg/250ml IV 07/20/25 12:04 2 mcg/kg/min .Q24H PRN 140.438 mls/hr PER protocol Administration Protocol 0.05 MCG/KG/MIN Phenylephrine HCl 40 mg/ 100 mls @ 5.618 mls/hr 06/21/25 06:01 06/21/25 09:00 Sodium Chloride IV 07/21/25 06:00 1 mcg/kg/min .[id number] PRN 11.235 mls/hr Per Sepsis Protocol Titration Protocol 0.5 MCG/KG/MIN Sodium Bicarbonate 88.23 meq/ 588.23 mls @ 100 mls/hr 06/21/25 09:35 Dextrose IV 07/21/25 09:34 .Q5H53M COTY Lansoprazole 30 mg 06/20/25 09:00 06/21/25 08:07 Lansoprazole 30 Mg Tab.Rap.Dr VEGA 07/20/25 08:59 30 mg QDAY COTY Administration Midazolam HCl 4 mg 06/20/25 14:53 Midazolam Inj 1 Mg/Ml Vial 2 Ml IVP X1 PRN agitation Nicotine 21 mg 05/29/25 12:15 06/21/25 08:07 Nicotine Patch 21 Mg/24 Hr Patch.Td24 TOP 06/28/25 12:14 21 mg QDAY COTY Administration Ondansetron HCl 4 mg 05/29/25 12:07 Ondansetron Inj 2 Mg/Ml Inj 2 Ml IVP 06/28/25 12:06 Q6H PRN NAUSEA OR VOMITING Protocol Rifaximin 550 mg 06/20/25 09:00 06/21/25 08:07 Rifaximin 550 Mg Tablet NG 06/27/25 08:59 550 mg BID COTY Administration Sodium Chloride 3 ml 05/31/25 10:52 06/21/25 10:20 Sodium Chloride Rt Becky 0.9% 3 Ml Nebu INH 06/30/25 10:51 3 ml PRN PRN Administration SOLN Plan Patient is a 64 year old male with past medical history of schizophrenia, COPD on supplemental home oxygen, chronic active smoker greater than 40 pack years and status post right inguinal hernia repair in 2018 who presented to ED on 05/29/25 for shortness of breath and admitted telemetry for acute on chronic hypoxic respiratory failure, pleural effusion, pneumonia and pulmonary emboli and upgraded to ICU for vasopressor support and AHRF impending intubation. 06/19/2025 patient intubated, Central line (IJ), femoral arterial line (right side), and chest tube placed (draining clear red fluid). Son was spoken to as surrogate decision maker, would like to keep patient full code. 06/20/25 son was called for consent for Left sided thora and broncheolar lavage with possible biopsy. His pressor requirement continues to increase and he required increasing sedation for agitation. He has worsening hyperbilirubinemia and lactic acidosis. 06/21 pressor requirement is increased, started on dialysis for refracory acidemia, blood clot happened during tablo, son was called and changed code status back to DNR (overnight was changed to full code). NEURO - stable #Acute on chronic encephalopathy #History of schizophrenia #Agitation/Anxiety vs Hospital Acquired Delirium Diagnostic Workup: Patient diagnosed with Schizophrenia years ago by PCP , not on any current outpt psych medications. Patient has been restless and agitated due to prolonged hospital stay and physical distress. Patient upgraded to ICU after presenting with extreme somnolence, unable to state name or speak intelligible words after receiving Seroquel 25mg HS on 06/18/25. Patient's baseline mentation is A&O x3 but has fluctuated throughout his hospital stay complicated with patient's underlying psych disorder and hosptial delirium Treatment: Has received Seroquel 25mg HS and Klonipin 0.25mg BID for his agitation, however will hold for now Avoid overuse of benzodiazepines to prevent respiratory depression. CARDIO #Multiorgan failure #Undifferentiated Shock #Hypotension DDx: ongoing sepsis 2/2 pneumonia vs malignancy Diagnostic Workup: Fluid responsive, pulse pressure variation >12% MAP in the mid-50s, BP 72/51 despite midodrine administration. Bedside echo shows good contractility, with plethoric and congested IVC of 2.25cm Bilateral pulmonary embolisms Treatment: IV albumin 25g for blood pressure stabilization and 500ml LR bolus given prior to bedside echo eval Midodrine 15mg TID for BP support. Levophed + vasopressin and additional vasopressor support as needed to maintain MAP > 65 06/20 dobutamine DC'd 06/21 phenylephrine Follow-up: Monitor blood pressure and ensure appropriate volume status. PULM #Acute on chronic hypoxic respiratory failure 2/2 #Bilateral PNA #ARDS #Recurrent pleural effusions #Bilateral pulmonary emboli #Underlying COPD #Right lung mass Diagnostic Workup: Chronic smoking history. CT scan showed bilateral pneumonia (left upper lobe and right lower lobe), large right upper lobe mass, and right hilar lymphadenopathy. Received three thoracentesis during this hospitalization which has improved with SOB Thoracentesis findings: Exudative fluid, Bacillus (likely cereus) cultured. Cytology from thoracentesis showed few atypical epithelial cells, insufficient for definitive malignancy diagnosis. CTA (06/09): Pulmonary emboli in the RLL and LLL branches. Repeated CXR shows extensive b/l PNA with ARDS picture Patient has been requiring an increase in O2 requirments, b/l opacities seen on CXR SpO2/FiO2 < 315 currently on HFNC at 40L at 100% FiO2, satting 92-96% Treatment: BiPAP transitioned to high-flow nasal cannula. Previously on Levofloxacin and started on Cefepime IV 2g every 8 hours started 06/13 for pneumonia in immunocompromised setting. Prednisone 40mg daily (completed 5-day course). DuoNeb treatments (IV and inhaled). Multiple thoracentesis FUP cytology and fluid analysis Follow-up: Monitor for fluid reaccumulation and manage pleural effusions accordingly. Repeat CT scan in 6 months to monitor for evolution of right middle lobe consolidation. Follow-up pleural studies and lung biopsy if the lesion remains indeterminate. Once patient's PNA is cleared, patient may benefit from PleurxCath #Bilateral Pulmonary Embolisms DDx: Likely secondary to hypercoagulable state in malignancy Diagnostic Workup: CTA showed bilateral pulmonary emboli. Treatment: Heparin GTT per PE protocol and can transition to Eliquis when stable Monitor for bleeding. DC'd heparin 06/21 GI/FEN #Shock liver (AST 1260 ALT 372 ALP 72 LDH 1870) #Cirrhosis #Hyperbilirubinemia, #Transaminitis -improving #Anasarca - improving Diagnostic Workup: Chronic alcohol use. Elevated INR and thrombocytopenia indicating chronic liver pathology. Mild ascites and anasarca, improved with diuresis. Hepatitis panel negative. Treatment: Lactulose PO 30g TID, titrated to 2-3 BMs - holding 2/2 intolerant of PO intake Restarted spironolactone 25mg PO for stable BP and kidney function, last dose received 06/18/25 this AM and will hold for now in lieu of low BP Rifaximin 550mg BID was given until 06/08, unsure why it was discontinued/held; will restart Midodrine 15mg TID for BP support. Will hold off an diuretics for now in the setting of low BP Follow-up: Monitor liver function and renal status. Outpatient follow-up with hepatology/GI. Patient unable to tolerate PO at this time d/t mental status, will resume PO meds when able Tablo RENAL #YASMIN - worsening #Lactic acidosis - Type A&B #?Contraction Alkalosis #HAGMA-worsening Diagnostic Workup: Creatinine levels 1.1 --> 1.6 --> 1.7 --> 2.5, baseline Cr range 0.8?1.0. BUN 60, HCO3- and pH increasing on serial VBG taken today in the setting of possible overdiuresis Patient's LA continues to be elevated in the setting of possible active infection and underlying malignancy and hypoxia. Recent LA was 10.5 and continues to rise Treatment: Hold spironolactone and Lasix. Continue monitoring renal function with daily renal panel. Initially on Bicitra to help with HAGMA, which is improving - holding bicitra Tablo Follow-up: Renally dose medications. Avoid overdiuresis and nephrotoxic medications. Tablo #Electrolyte imbalance #Hypokalemia - resolving Repleted with 40mEq IV -Continue to monitor, and replete as needed with daily labs ENDO #Hypoglycemia Tx with D50 amps and bicarb drip and D5 drip HEME/ONC #Right upper lung mass Diagnostic Workup: CT revealed pulmonary mass in the right upper lobe with hilar lymphadenopathy and pleural effusion. Pleural fluid cultured Bacillus (likely cereus) and also showed very rare epithelial cells. Follow-up: Lung biopsy to confirm malignancy. Pt not stable enough Follow-up pleural fluid studies and cytology - exudative Consider [place] imaging to assess metastasis. #SURYA Diagnostic Workup: Hemoglobin 12.4, low iron, ferritin, and TIBC normal. Treatment: No active treatment at this time. Follow-up: Start iron supplementation once infection resolves. ENDO no active issues ID #PNA 2/2 GPC VS GNR #Parapneumonic Effusion Diagnostic Workup: WBC has been increasing, currently 29; sputum Gram stain showed GPC, GNR. Pleural fluid cultured Bacillus (likely cereus). +LDH Pleural:serum 378:229 >.66 (exudative) +Protein pleural:serum 3.3:6.5 >0.5 (exudative) Treatment: Discontinued azithromycin, Zosyn, and vancomycin, levofloxacin. Started on IV Cefepime for resistant pneumonia since 06/13/25 DC 06/20/2025 Chest tube insertion 06/19/2025 2L out red, clear Follow-up: Monitor CBC and oxygen levels. Follow-up pleural studies and repeat cytology. Once infection clears, patient may benefit from pleurx catheter MSK no active issues PSYCH see neuro Health Maintenance: DVT prophylaxis: Heparin gtt GI prophylaxis: PPI DC'd 06/21 Diet: NPO Aguilar: Yes Lines: PIV, central (IJ), arterial (R fem), R femoral dialysis catheter Tubes: Chest tube Drips: Levophed, vasopressin, phenylephrine CODE STATUS: DNR Disposition: Admitted to ICU for AHRF and vasopressor support. Patient's care and plan discussed with my attending, Dr. Nickerson and senior resident Dr. Artie Luna, PGY-1 Attending Provider Attestation/Addendum Patient seen and examined with the above resident, Charlie Luna MD. I agree with the findings, assessment, and plan of care as documented except for any differences below. Metabolic acidosis worsening overnight despite adequate source control favoring non-hypoperfusion etiology such as high metabolic demand and poor clearance. Patient remains otherwise in septic/ distributive shock. Required placement of HD catheter and underwent Tablo with limited benefit and worsening hemodyanamics. Patient in multiorgan failure with imminent . Ongoing discussion with son who unfortunately could not make it to [place] to see father due to social circumstances. Video visit was arranged by housestaff. Patient ultimately transitioned to comfort measures only after additional input from multiple specialists in setting of multiorgan failure. Demise this afternoon. Total critical care time: I personally spent 35 minutes for review of physiologic parameters, directing plan of care, coordination of care with other specialists, and counseling patients family. This is exclusive of time spent teaching housestaff or performing any separate billable procedures. The patient remained at high risk for further morbidity and mortality warranting close monitoring and care only available in the ICU. Critical care services for acute hypoxic respiratory failure, septic shock, cirrhosis, pulmonary embolism healthcare associated pneumonia.
--- NOTE | 2025-06-21 11:21 | PC.NURSE ---
have not been able to get SPo2 Read off of patient, contacted respiratory therapist to put forehead monitor on. attempt was still unsuccessful MD made aware and orders were given for ABG . ABG was drawn and MD was okay with SP02 reading from lab draw.
[2025-06-21 11:39] LABS: Lactate (Lactic Acid) 14.9 mMol/L (0.4-2.0)
[2025-06-21 11:48] LABS: Albumin, Serum 3.9 gm/dL (3.4-4.8); Anion Gap 22 (7-16); BUN/Creatinine Ratio 19 Ratio (12-20); Blood Urea Nitrogen 48 mg/dL (9-23); Calcium 7.6 mg/dL (8.3-10.6); Calcium (Corrected) 7.7 mg/dL (8.5-10.1); Chloride 102 mMol/L (98-107); Creatinine (Component) 2.5 mg/dL (0.6-1.3); Estimated Creatinine Clearance 33.6 mL/min (>60); Glucose 71 mg/dL (74-106); Magnesium 2.3 mg/dL (1.6-2.6); Osmolality,Calculated 278 (275-295); Phosphorous 6.5 mg/dL (2.4-5.1); Potassium 4.9 mMol/L (3.4-5.1); Sodium 134 mMol/L (136-145); eGFR 28 See Note
[2025-06-21 12:17] LABS: Carbon Dioxide < 10.0 mMol/L (20.0-31.0)
[2025-06-21] MEDS: PHENYLEPHRINE HCL 40 MG in SODIUM CHLORIDE 0.9% 96 ML 11.797 MG IV (13:15)
--- NOTE | 2025-06-21 13:46 | PD.RESCONSUL ---
HPI Data of Consult Consult date: 06/21/25 Requesting Physician: Mike Sultana DO Admitting Provider: Meri Shetty DO Attending Provider: Mike Sultana DO Primary Care Provider: BC Caraballo Consult Narrative Reason for consult: YASMIN, severe metabolic acidosis History of present illness: Patient is a 64 year old male with past medical history of schizophrenia, COPD on supplemental home oxygen, chronic active smoker greater than 40 pack years and status post right inguinal hernia repair in 2018 who presented to [facility] emergency department on 05/29/25 with a chief complaint of shortness of breath from home, per EMS patient appeared to be in respiratory distress was saturating 86% on 10 L oxygen, was started on nonrebreather 12 L by EMS. Patient is a poor historian due to underlying schizophrenia has pressed speech talking continuously about nonrelevant things at times however he reported that he was feeling weak for the last 2 weeks and is not able to move around much. He does complain of shortness of breath, orthopnea and during interview patient had episodes of significant anxiety. Patient is a chronic active heavy smoker with greater than 40 pack years. Patient otherwise denies any other medical history, syncope, chest pain, headache, diarrhea, nausea, vomiting. Some history obtained from patient's brother at bedside who is his next of kin, patient was on 8 L supplemental oxygen per brother at home and was using breathing treatments for the last 2 weeks. Patient follows [facility] as PCP. Nephrology consulted for emergent CRRT secondary to worsening acidosis. 06/21/25: Patient was seen and assessed in ICU. Temporary femoral dialysis line placed last night, on CRRT. Planned to continue CRRT however primary team had another [facility] discussion with patient's family, decided to transition to comfort care. Will withdraw CRRT. cc:: cc: Mike Sultana DO Exam Vital Signs Temp Pulse Resp BP Pulse Ox O2 Del Method O2 Flow Rate 98.1 F 109 H 28 H 82/50 L 86 L High Flow Nasal Cannula 40 06/21/25 11:00 06/21/25 13:30 06/21/25 11:00 06/21/25 13:30 06/21/25 07:30 06/18/25 20:00 06/19/25 02:11 FiO2 60 06/21/25 11:00 Narrative Exam Physical Exam General: Ventilated and sedated. On pressors. HEENT: Normocephalic, atraumatic, mucous membranes dry. Heart: Regular rate and rhythm, normal S1 and S2, no murmurs. Lungs: Coarse breath sounds, diminished lung sounds in left lower base. No wheezing noted. Abdomen: Soft, distended, nontender, positive bowel sounds. No guarding or rebound tenderness. Large left inguinal mass. Neurologic: Unable to assess. Extremities: No edema. Skin: No rash or ecchymoses. Results Labs 06/21/25 04:50 06/21/25 11:00 Labs: Short CBC 06/21/25 Range/Units 04:50 WBC 32.5 H (3.8-10.6) Thou/mm3 Hgb 12.1 L (13.5-16.0) g/dL Hct 42.4 (41.0-53.0) % Plt Count 61 L D (140-440) Thou/mm3 BMP 06/20/25 06/21/25 06/21/25 20:55 01:25 04:50 Sodium 131 L 133 L 135 L Potassium 4.6 D 4.1 D 4.7 D Chloride 103 100 103 Carbon Dioxide 11.6 L* 16.7 L 12.3 L* BUN 43 H 52 H 66 H Creatinine 2.2 H D 2.4 H 2.5 H Glucose 48 L* D 282 H D 50 L D Calcium 8.0 L 7.5 L 7.7 L 06/21/25 11:00 Sodium 134 L Potassium 4.9 Chloride 102 Carbon Dioxide < 10.0 L* BUN 48 H Creatinine 2.5 H Glucose 71 L Calcium 7.6 L Liver Function 06/20/25 06/21/25 06/21/25 Range/Units 20:55 01:25 04:50 Total Bilirubin 3.2 H D (0.3-1.2) mg/dL AST 1260 H* (0-34) U/L ALT 372 H (10-49) U/L Alkaline Phosphatase 72 (46-116) U/L Albumin 3.8 3.0 L D 3.6 D (3.4-4.8) gm/dL 06/21/25 Range/Units 11:00 Total Bilirubin (0.3-1.2) mg/dL AST (0-34) U/L ALT (10-49) U/L Alkaline Phosphatase (46-116) U/L Albumin 3.9 (3.4-4.8) gm/dL ABG Interpretation ABG results: 05/29/25 05/31/25 05/31/25 05:33 10:53 17:16 ABG pH 7.38 7.30 L 7.52 H D ABG pCO2 24 L 33 28 L ABG pO2 57 L* 125 H D 50 L* D ABG HCO3 14 L 16 L 23 ABG O2 Saturation 87 L 99 H 88 L ABG Base Excess -9 L -9 L 1 VBG pH VBG pCO2 VBG pO2 VBG Base Excess 05/31/25 06/01/25 06/03/25 23:51 05:01 20:42 ABG pH 7.49 H 7.53 H 7.54 H ABG pCO2 29 L 27 L 26 L ABG pO2 57 L* 51 L* 60 L ABG HCO3 22 23 22 ABG O2 Saturation 91 88 L 88 L ABG Base Excess 0 1 0 VBG pH VBG pCO2 VBG pO2 VBG Base Excess 06/04/25 06/06/25 06/15/25 10:17 07:58 13:20 ABG pH 7.54 H 7.50 H 7.51 H ABG pCO2 26 L 24 L 26 L ABG pO2 55 L* 50 L* 67 L ABG HCO3 22 19 L 20 ABG O2 Saturation 91 87 L 95 ABG Base Excess 1 -3 -1 VBG pH VBG pCO2 VBG pO2 VBG Base Excess 06/18/25 06/18/25 06/19/25 09:05 21:51 08:12 ABG pH 7.48 H ABG pCO2 30 L ABG pO2 71 L ABG HCO3 22 ABG O2 Saturation 95 ABG Base Excess -1 VBG pH 7.39 7.41 VBG pCO2 33 L 32 L VBG pO2 45 37 VBG Base Excess -4 L -4 L 06/19/25 06/19/25 06/20/25 13:13 17:25 04:05 ABG pH 7.26 L D 7.32 L 7.32 L ABG pCO2 48 D 41 35 ABG pO2 82 L 75 L 63 L ABG HCO3 22 21 18 L ABG O2 Saturation 94 94 91 ABG Base Excess -6 L -5 L -8 L VBG pH VBG pCO2 VBG pO2 VBG Base Excess 06/20/25 06/20/25 06/20/25 11:48 19:11 21:03 ABG pH 7.08 L* D 7.10 L* ABG pCO2 46 D 42 ABG pO2 72 L 69 L ABG HCO3 14 L 13 L ABG O2 Saturation 90 L 90 L ABG Base Excess -16 L -16 L VBG pH 7.18 L VBG pCO2 45 D VBG pO2 38 VBG Base Excess -11 L 06/21/25 06/21/25 06/21/25 00:33 02:49 06:23 ABG pH 7.11 L* 7.13 L* 7.10 L* ABG pCO2 40 38 38 ABG pO2 69 L 69 L 73 L ABG HCO3 13 L 13 L 12 L ABG O2 Saturation 90 L 91 92 ABG Base Excess -16 L -16 L -17 L VBG pH VBG pCO2 VBG pO2 VBG Base Excess 06/21/25 08:22 ABG pH 7.13 L* ABG pCO2 37 ABG pO2 80 L ABG HCO3 12 L ABG O2 Saturation 94 ABG Base Excess -16 L VBG pH VBG pCO2 VBG pO2 VBG Base Excess Quality Measures Quality Measures VTE prophylaxis Medications Home Medications and Allergies Home Medications ?Medication ?Instructions ?Recorded ?Confirmed ?Type No Known Home Medications 03/02/18 05/29/25 History Allergies Allergy/AdvReac Type Severity Reaction Status Date / Time No Known Allergies Allergy Unverified 03/06/18 10:09 Visit Medications Acetaminophen (Acetaminophen Becky 325 Mg/10 Ml Udc) 325 mg NG Q6H PRN PRN Reason: Fever >101.5, Pain 1-3 Stop: 07/20/25 07:59 Dextrose (Dextrose 50%-Water Inj 50 Ml Syringe) 50 ml IV Q15MIN PRN PRN Reason: BG <70 Stop: 07/20/25 21:41 Last Admin: 06/21/25 11:57 Dose: 50 ml Fentanyl Citrate (Fentanyl Cit Inj 50 Mcg/Ml Amp 2ml) 50 mcg IVP Q1H PRN PRN Reason: PAIN SCALE 4-10(Mod-Sev Stop: 06/26/25 13:42 Heparin Sodium (Porcine) (Heparin Sod Inj 1000 Unit/Ml Vial 10 Ml) 200 unit IV X1 PRN PRN Reason: DIALYSIS Stop: 06/27/25 08:17 Last Admin: 06/21/25 12:45 Dose: 200 unit Fentanyl Citrate (Sublimaze Inj 2,500 Mcg/250 Ml Bag) 2,500 mcg in 250 mls @ 2.5 mls/hr IV .Q24H PRN; Protocol PRN Reason: PER PROTOCOL Stop: 06/24/25 15:01 Last Titration: 06/21/25 13:00 Dose: 125 mcg/hr, 12.5 mls/hr Vasopressin/Sodium Chloride (Vasostrict/Ns Ivpb) 20 unit in 100 mls @ 9 mls/hr IV .Q11H7M PRN; Protocol PRN Reason: PER PROTOCOL Stop: 07/19/25 15:03 Last Admin: 06/21/25 10:30 Dose: 0.03 unit/min, 9 mls/hr Norepinephrine Bitartrate (Levophed In Ns 16mg/250ml) 16 mg in 250 mls @ 3.511 mls/hr IV .Q24H PRN; Protocol PRN Reason: PER protocol Stop: 07/20/25 12:04 Last Admin: 06/21/25 13:22 Dose: 2 mcg/kg/min, 140.438 mls/hr Phenylephrine HCl 40 mg/ (Sodium Chloride) 100 mls @ 5.618 mls/hr IV .[id number] PRN; Protocol PRN Reason: Per Sepsis Protocol Stop: 07/21/25 06:00 Last Admin: 06/21/25 13:15 Dose: 1.05 mcg/kg/min, 11.797 mls/hr Sodium Bicarbonate 88.23 meq/ (Dextrose) 588.23 mls @ 125 mls/hr IV .Q4H43M COTY Stop: 07/21/25 12:39 Midazolam HCl (Versed Pf Inj In Ns Premix) 100 mg in 100 mls @ 1 mls/hr IV .Q24H PRN; Protocol PRN Reason: PER PROTOCOL Stop: 06/26/25 13:18 Epinephrine/Sodium Chloride (Adrenalin/Ns 4 Mg Ivpb) 4 mg in 250 mls @ 14.719 mls/hr IV .Q17H PRN; Protocol PRN Reason: per protocol Stop: 07/21/25 13:35 Morphine Sulfate (Morphine Sulfate Iv Drip 100mg/100ml) 100 mls @ 1 mls/hr IV .Q24H PRN; Protocol PRN Reason: PAIN (COMFORT CARE) Stop: 06/26/25 13:42 Lansoprazole (Lansoprazole 30 Mg Tab.Rap.Dr) 30 mg NG QDAY COTY Stop: 07/20/25 08:59 Last Admin: 06/21/25 08:07 Dose: 30 mg Lorazepam (Lorazepam 2 Mg/Ml Vial) 1 mg IVP Q6HR PRN PRN Reason: ANXIETY Stop: 06/26/25 13:42 Lorazepam (Lorazepam 2 Mg/Ml Vial) 2 mg IVP X1 PRN PRN Reason: ANXIETY Midazolam HCl (Midazolam Inj 1 Mg/Ml Vial 2 Ml) 4 mg IVP X1 PRN PRN Reason: agitation Morphine Sulfate (Morphine Sulf Inj 4 Mg/Ml Vial) 2 mg IVP Q30M PRN PRN Reason: PAIN Stop: 06/26/25 13:42 Nicotine (Nicotine Patch 21 Mg/24 Hr Patch.Td24) 21 mg TOP QDAY [facility] Stop: 06/28/25 12:14 Last Admin: 06/21/25 08:07 Dose: 21 mg Ondansetron HCl (Ondansetron Inj 2 Mg/Ml Inj 2 Ml) 4 mg IVP Q6H PRN; Protocol PRN Reason: NAUSEA OR VOMITING Stop: 06/28/25 12:06 Rifaximin (Rifaximin 550 Mg Tablet) 550 mg NG BID [facility] Stop: 06/27/25 08:59 Last Admin: 06/21/25 08:07 Dose: 550 mg Sodium Chloride (Sodium Chloride Rt Becky 0.9% 3 Ml Nebu) 3 ml INH PRN PRN PRN Reason: SOLN Stop: 06/30/25 10:51 Last Admin: 06/21/25 10:20 Dose: 3 ml Discontinued Medications Acetaminophen (Acetaminophen 325 Mg Tablet) 325 mg PO Q6H PRN PRN Reason: Fever >101.5, Pain 1-3 Stop: 06/28/25 12:06 Last Admin: 06/15/25 01:21 Dose: 325 mg Hydrocodone Bitart/Acetaminophen (Hydrocodone/Apap 5/325 Tablet) 1 tab PO Q6HR PRN PRN Reason: PAIN SCALE 4-10(Mod-Sev Stop: 06/05/25 10:36 Last Admin: 06/05/25 05:04 Dose: 1 tab Albuterol (Albuterol Rt 2.5 Mg/0.5 Ml Nebu) 5 mg INH X1 ONE Stop: 05/29/25 06:35 Last Admin: 05/29/25 06:52 Dose: 5 mg Albuterol (Albuterol Rt 2.5 Mg/0.5 Ml Nebu) 5 mg INH X1 ONE Stop: 05/31/25 10:53 Last Admin: 05/31/25 10:59 Dose: 5 mg Albuterol/Ipratropium (Albuterol/Ipratropium (Duoneb) Rt Becky 3 Ml Nebu) 3 ml INH Q2HR PRN PRN Reason: SHORTNESS OF BREATH OR WHEEZE Stop: 06/28/25 12:06 Last Admin: 06/14/25 13:25 Dose: 3 ml Alprazolam (Alprazolam 0.25 Mg Tablet) 0.25 mg PO BID PRN PRN Reason: ANXIETY Stop: 06/10/25 12:03 Citric Acid/Sodium Citrate (Citric Acid/Sodium Citr 15 Ml Udc (Bicitra)) 30 ml PO BID [facility] Stop: 06/08/25 08:59 Last Admin: 06/07/25 21:12 Dose: 30 ml Citric Acid/Sodium Citrate (Citric Acid/Sodium Citr 15 Ml Udc (Bicitra)) 30 ml PO BID [facility] Stop: 07/18/25 08:59 Last Admin: 06/19/25 20:53 Dose: Not Given Citric Acid/Sodium Citrate (Citric Acid/Sodium Citr 15 Ml Udc (Bicitra)) 30 ml NG BID [facility] Stop: 07/20/25 08:59 Clonazepam (Clonazepam 0.5 Mg Tablet) 0.25 mg PO BID PRN PRN Reason: ANXIETY Stop: 06/11/25 20:59 Last Admin: 06/06/25 11:36 Dose: 0.25 mg Clonazepam (Clonazepam 0.5 Mg Tablet) 0.5 mg PO BID [facility] Stop: 06/08/25 20:59 Last Admin: 06/08/25 08:47 Dose: 0.5 mg Clonazepam (Clonazepam 0.5 Mg Tablet) 0.25 mg PO BID [facility] Stop: 06/13/25 20:59 Last Admin: 12/08/25 08:12 Dose: 0.25 mg Clonazepam (Clonazepam 0.5 Mg Tablet) 0.5 mg PO QPM COTY Stop: 06/14/25 20:59 Last Admin: 06/11/25 20:13 Dose: 0.5 mg Clonazepam (Clonazepam 0.5 Mg Tablet) 0.25 mg PO QAM COTY Stop: 06/15/25 08:59 Last Admin: 06/12/25 08:56 Dose: 0.25 mg Clonazepam (Clonazepam 0.5 Mg Tablet) 0.25 mg PO BID COTY Stop: 06/21/25 10:29 Last Admin: 06/18/25 20:29 Dose: 0.25 mg Dextrose (Dextrose 50%-Water Inj 50 Ml Syringe) 50 ml IVP X1 ONE Stop: 06/20/25 21:33 Last Admin: 06/20/25 21:32 Dose: 50 ml Dextrose (Dextrose 50%-Water Inj 50 Ml Syringe) 50 ml IV Q15MIN PRN PRN Reason: BG <50 OR BG <70 & pt unresponsive Stop: 07/20/25 21:41 Last Admin: 06/21/25 09:34 Dose: 50 ml Dextrose (Dextrose 50%-Water Inj 50 Ml Syringe) 50 ml IVP X1 ONE Stop: 06/20/25 22:30 Last Admin: 06/20/25 22:36 Dose: 50 ml Dextrose (Dextrose 50%-Water Inj 50 Ml Syringe) 50 ml IVP X1 ONE Stop: 06/21/25 01:19 Last Admin: 06/21/25 01:27 Dose: 50 ml Dextrose (Dextrose 50%-Water Inj 50 Ml Syringe) 50 ml IVP X1 ONE Stop: 06/21/25 04:16 Last Admin: 06/21/25 04:56 Dose: 50 ml Enoxaparin Sodium (Enoxaparin Sod Inj 80 Mg/0.8 Ml Syringe) 80 mg SC X1 ONE Stop: 05/29/25 09:26 Last Admin: 05/29/25 10:48 Dose: Not Given Etomidate (Etomidate Inj 2 Mg/Ml Vial 10 Ml) 20 mg IVP X1 ONE Stop: 06/19/25 10:19 Last Admin: 06/19/25 10:38 Dose: 20 mg Furosemide (Furosemide Inj 10 Mg/Ml 4ml Vial) 40 mg IVP X1 ONE Stop: 05/29/25 05:21 Last Admin: 05/29/25 05:31 Dose: 40 mg Furosemide (Furosemide Inj 10 Mg/Ml 4ml Vial) 40 mg IVP X1 ONE Stop: 05/30/25 16:51 Last Admin: 05/30/25 18:35 Dose: 40 mg Furosemide (Furosemide Inj 10 Mg/Ml 4ml Vial) 40 mg IVP X1 ONE Stop: 05/31/25 11:05 Last Admin: 05/31/25 12:46 Dose: Not Given Furosemide (Furosemide Inj 10 Mg/Ml Vial 2 Ml) 20 mg IVP X1 ONE Stop: 06/01/25 01:52 Last Admin: 06/01/25 02:00 Dose: 20 mg Furosemide (Furosemide Inj 10 Mg/Ml 4ml Vial) 40 mg IVP X1 ONE Stop: 06/01/25 07:56 Last Admin: 06/01/25 08:13 Dose: 40 mg Furosemide (Furosemide Inj 10 Mg/Ml 4ml Vial) 40 mg IVP QDAY [facility] Stop: 07/03/25 11:44 Last Admin: 06/06/25 09:41 Dose: 40 mg Furosemide (Furosemide Inj 10 Mg/Ml 4ml Vial) 40 mg IVP X1 ONE Stop: 06/04/25 11:00 Last Admin: 06/04/25 11:24 Dose: 40 mg Furosemide (Furosemide Inj 10 Mg/Ml 4ml Vial) 80 mg IVP QDAY [facility] Stop: 07/07/25 08:59 Last Admin: 06/07/25 09:16 Dose: 80 mg Furosemide (Furosemide Inj 10 Mg/Ml 4ml Vial) 40 mg IV X1 ONE Stop: 06/06/25 11:16 Furosemide (Furosemide Inj 10 Mg/Ml 4ml Vial) 40 mg IVP X1 ONE Stop: 06/06/25 11:16 Last Admin: 06/06/25 11:24 Dose: 40 mg Furosemide (Furosemide Inj 10 Mg/Ml 4ml Vial) 40 mg IVP QDAY [facility] Stop: 07/11/25 10:34 Last Admin: 06/11/25 12:56 Dose: Not Given Furosemide (Furosemide Inj 10 Mg/Ml Vial 2 Ml) 20 mg IVP X1 ONE Stop: 06/14/25 10:06 Last Admin: 06/14/25 11:15 Dose: 20 mg Haloperidol Lactate (Haloperidol Lact Inj 5 Mg/Ml Vial) 5 mg IV X1 ONE Stop: 05/31/25 10:41 Last Admin: 05/31/25 10:44 Dose: 5 mg Haloperidol Lactate (Haloperidol Lact Inj 5 Mg/Ml Vial) 2.5 mg IV X1 ONE Stop: 06/03/25 18:48 Last Admin: 06/03/25 18:52 Dose: 2.5 mg Haloperidol Lactate (Haloperidol Lact Inj 5 Mg/Ml Vial) 2.5 mg IV X1 PRN PRN Reason: GIve before CTA Last Admin: 06/09/25 19:48 Dose: 2.5 mg Haloperidol Lactate (Haloperidol Lact Inj 5 Mg/Ml Vial) 2.5 mg IV X1 PRN; Protocol PRN Reason: Give before procedure Heparin Sodium (Porcine) (Heparin Sod Inj 5000 Unit/Ml Vial) 6,550 unit 80 unit/kg (6550 unit) IV X1 ONE; Protocol Stop: 05/29/25 12:15 Last Admin: 05/29/25 14:35 Dose: 6,550 unit Heparin Sodium (Porcine) (Heparin Sod Inj 5000 Unit/Ml Vial) 3,100 unit 40 unit/kg (3100 unit) IV X1 ONE Stop: 05/30/25 13:19 Last Admin: 05/30/25 13:41 Dose: 3,100 unit Heparin Sodium (Porcine) (Heparin Sod Inj 5000 Unit/Ml Vial) 3,200 unit IVP X1 ONE Stop: 06/01/25 07:38 Last Admin: 06/01/25 07:58 Dose: 3,200 unit Heparin Sodium (Porcine) (Heparin Sod Inj 5000 Unit/Ml Vial) 3,240 unit IVP X1 ONE Stop: 06/02/25 01:02 Last Admin: 06/02/25 01:20 Dose: 3,240 unit Heparin Sodium (Porcine) (Heparin Sod Inj 1000 Unit/Ml Vial) 6,336 unit IVP X1 ONE Stop: 06/04/25 18:07 Last Admin: 06/05/25 19:35 Dose: Not Given Heparin Sodium (Porcine) (Heparin Sod Inj 5000 Unit/Ml Vial) 6,350 unit IVP X1 ONE Stop: 06/04/25 18:19 Last Admin: 06/04/25 18:43 Dose: 6,350 unit Heparin Sodium (Porcine) (Heparin Sod Inj 5000 Unit/Ml Vial) 3,100 unit IVP X1 ONE Stop: 06/05/25 10:32 Last Admin: 06/05/25 10:43 Dose: 3,100 unit Heparin Sodium (Porcine) (Heparin Sod Inj 5000 Unit/Ml Vial) 5,750 unit 80 unit/kg (5750 unit) IV X1 ONE; Protocol Stop: 06/11/25 17:37 Last Admin: 06/11/25 19:38 Dose: 5,750 unit Heparin Sodium (Porcine) (Heparin Sod Inj 5000 Unit/Ml Vial) 3,000 unit IVP X1 ONE Stop: 06/12/25 11:05 Last Admin: 06/16/25 07:58 Dose: Not Given Heparin Sodium (Porcine) (Heparin Sod Inj 5000 Unit/Ml Vial) 3,000 unit IVP X1 ONE Stop: 06/12/25 11:08 Last Admin: 06/12/25 11:15 Dose: 3,000 unit Hydroxyzine HCl (Hydroxyzine Hcl 25 Mg Tablet) 25 mg PO X1 ONE Stop: 05/30/25 07:36 Last Admin: 05/30/25 09:22 Dose: 25 mg Hydroxyzine HCl (Hydroxyzine Hcl 25 Mg Tablet) 25 mg PO X1 ONE Stop: 06/03/25 16:12 Last Admin: 06/03/25 17:28 Dose: 25 mg Hydroxyzine HCl (Hydroxyzine Hcl 25 Mg Tablet) 25 mg PO X1 ONE Stop: 06/04/25 21:41 Last Admin: 06/04/25 21:53 Dose: 25 mg Sodium Chloride (Ns) 2,328 mls @ 2,328 mls/hr 30 ml/kg infuse over 60 min (2328 ml) IV .Q1H ONE Stop: 05/29/25 07:34 Last Admin: 05/29/25 10:47 Dose: Not Given Piperacillin/Tazobactam/Dextrose (Zosyn) 3.375 gm in 50 mls @ 100 mls/hr IV X1 ONE Stop: 05/29/25 07:04 Last Infusion: 05/29/25 07:17 Dose: Infused Ceftriaxone Sodium 2 gm/ (Sodium Chloride) 50 mls @ 100 mls/hr IV X1 ONE Stop: 05/29/25 09:24 Last Infusion: 05/29/25 11:29 Dose: Infused Azithromycin 500 mg/ Sodium (Chloride) 250 mls @ 250 mls/hr IV QDAY COTY Stop: 06/01/25 08:55 Last Admin: 05/31/25 09:59 Dose: 250 mls/hr Heparin Sodium/Dextrose (Heparin In D5w Ivpb) 25,000 unit in 250 mls @ 14.696 mls/hr IV .Q17H1M [facility]; Protocol Stop: 06/12/25 12:14 Last Titration: 06/04/25 07:12 Dose: 0 units/kg/hr, 0 mls/hr Ceftriaxone Sodium/Dextrose (Rocephin/D5w 1gm Iv Premix) 1 gm in 50 mls @ 100 mls/hr IV QDAY [facility] Stop: 06/06/25 08:59 Piperacillin/Tazobactam/Dextrose (Zosyn) 3.375 gm in 50 mls @ 12.5 mls/hr IV Q8HR [facility]; Protocol Stop: 06/05/25 13:59 Last Admin: 06/01/25 05:37 Dose: 12.5 mls/hr Vancomycin HCl (Vancomycin/Water 1250 Mg Ivpb) 250 mls @ 120 mls/hr IV BID@1000,2200 COTY; Protocol Stop: 06/06/25 08:29 Last Admin: 06/01/25 10:38 Dose: Not Given Albumin Human (Albuminex 25% Ivpb) 25 gm in 100 mls @ 100 mls/hr IV X1 ONE Stop: 05/30/25 11:39 Last Infusion: 05/30/25 18:35 Dose: Infused Albumin Human (Albuminex 25% Ivpb) 25 gm in 100 mls @ 100 mls/hr IV QDAY [facility] Stop: 06/03/25 11:03 Last Admin: 06/03/25 08:42 Dose: 100 mls/hr Potassium Chloride (Kcl Ivpb) 10 meq in 100 mls @ 100 mls/hr IV Q1H [facility] Stop: 06/01/25 10:11 Last Admin: 06/01/25 08:36 Dose: Not Given Levofloxacin/Dextrose (Levaquin Ivpb) 750 mg in 150 mls @ 100 mls/hr IV QDAY [facility] Stop: 06/08/25 10:29 Last Admin: 06/07/25 09:12 Dose: 100 mls/hr Potassium Chloride (Kcl Ivpb) 10 meq in 100 mls @ 100 mls/hr IV Q1H [facility] Stop: 06/01/25 17:52 Last Admin: 06/01/25 17:34 Dose: 75 mls/hr Lactated Ringer's (Lactated Ringers) 500 mls @ 999 mls/hr IV .Q31M ONE Stop: 06/04/25 08:19 Last Admin: 06/04/25 07:59 Dose: 999 mls/hr Sodium Chloride (Ns) 250 mls @ 999 mls/hr IV .Q16M ONE Stop: 06/04/25 08:06 Last Admin: 06/04/25 08:04 Dose: Not Given Magnesium Sulfate (Magnesium Sulfate Ivpb) 4 gm in 50 mls @ 12.5 mls/hr IV X1 ONE Stop: 06/04/25 12:16 Last Admin: 06/04/25 10:36 Dose: 12.5 mls/hr Heparin Sodium/Dextrose (Heparin In D5w Ivpb) 25,000 unit in 250 mls @ 14.256 mls/hr IV .[id number] [facility]; Protocol Stop: 06/12/25 12:14 Last Admin: 06/10/25 19:09 Dose: Not Given Albumin Human (Albuminar-25 Ivpb) 12.5 gm in 50 mls @ 100 mls/hr IV QDAY COTY Stop: 07/04/25 16:01 Last Admin: 06/04/25 16:47 Dose: Not Given Albumin Human (Albuminar-25 Ivpb) 12.5 gm in 50 mls @ 100 mls/hr IV X1 ONE Stop: 06/04/25 16:39 Last Admin: 06/04/25 16:54 Dose: 100 mls/hr Furosemide 200 mg/ Sodium (Chloride) 100 mls @ 5 mls/hr IV .Q20H [facility] Stop: 07/11/25 15:38 Last Infusion: 06/12/25 09:50 Dose: 0 mls/hr Heparin Sodium/Dextrose (Heparin In D5w Ivpb) 25,000 unit in 250 mls @ 12.957 mls/hr IV .[id number] [facility]; Protocol Stop: 06/25/25 17:44 Last Titration: 06/21/25 09:40 Dose: 0 units/kg/hr, 0 mls/hr Albumin Human (Albuminex 25% Ivpb) 25 gm in 100 mls @ 100 mls/hr IV X1 ONE Stop: 06/12/25 11:53 Last Admin: 06/12/25 11:00 Dose: 100 mls/hr Albumin Human (Albuminex 25% Ivpb) 25 gm in 100 mls @ 100 mls/hr IV X1 ONE Stop: 06/12/25 16:59 Last Admin: 06/12/25 17:22 Dose: 100 mls/hr Cefepime HCl 1 gm/ Sodium (Chloride) 50 mls @ 100 mls/hr IV Q8HR COTY Stop: 06/20/25 08:29 Last Infusion: 06/14/25 22:25 Dose: Infused Cefepime HCl 2 gm/ Sodium (Chloride) 50 mls @ 100 mls/hr IV Q8HR COTY Stop: 06/20/25 08:29 Last Admin: 06/20/25 05:23 Dose: 100 mls/hr Sodium Chloride (Ns) 500 mls @ 999 mls/hr IV .Q31M ONE Stop: 06/17/25 11:46 Last Admin: 06/17/25 11:24 Dose: 999 mls/hr Albumin Human (Albuminex 25% Ivpb) 25 gm in 100 mls @ 100 mls/hr IV QDAY [facility] Stop: 06/21/25 07:59 Last Admin: 06/19/25 08:01 Dose: 100 mls/hr Albumin Human (Albuminar-5 Ivpb) 12.5 gm in 250 mls @ 100 mls/hr IV QDAY [facility] Stop: 06/22/25 22:06 Last Admin: 06/19/25 00:15 Dose: Not Given Albumin Human (Albuminar-5 Ivpb) 12.5 gm in 250 mls @ 100 mls/hr IV X1 ONE Stop: 06/19/25 00:36 Last Admin: 06/18/25 23:25 Dose: Not Given Albumin Human (Albuminar-25 Ivpb) 12.5 gm in 50 mls @ 20 mls/hr IV X1 ONE Stop: 06/19/25 00:59 Last Admin: 06/18/25 23:22 Dose: 20 mls/hr Lactated Ringer's (Lactated Ringers) 500 mls @ 999 mls/hr IV .Q31M ONE Stop: 06/18/25 22:53 Last Admin: 06/18/25 23:23 Dose: 999 mls/hr Norepinephrine/Dextrose (Levophed In D5w 8mg/250ml) 8 mg in 250 mls @ 6.625 mls/hr IV .Q24H PRN; Protocol PRN Reason: PER PROTOCOL Stop: 07/18/25 22:25 Last Titration: 06/19/25 16:00 Dose: 0.21 mcg/kg/min, 27.826 mls/hr Potassium Chloride (Kcl Ivpb) 10 meq in 100 mls @ 100 mls/hr IV Q1H COTY Stop: 06/19/25 02:49 Last Admin: 06/19/25 05:54 Dose: 50 mls/hr Dexmedetomidine/Sodium Chloride (Precedex Ivpb) 400 mcg in 100 mls @ 3.534 mls/hr IV .Q24H PRN; Protocol PRN Reason: Per PROTOCOL Stop: 07/19/25 03:11 Last Titration: 06/19/25 10:44 Dose: 0 mcg/kg/hr, 0 mls/hr Propofol (Diprivan Ivpb) 1,000 mg in 100 mls @ 2.121 mls/hr IV .Q24H PRN; Protocol PRN Reason: PER PROTOCOL Stop: 07/19/25 10:18 Last Titration: 06/21/25 13:00 Dose: 5 mcg/kg/min, 2.121 mls/hr Albumin Human (Albuminex 25% Ivpb) 25 gm in 100 mls @ 100 mls/hr IV Q6H [facility] Stop: 06/22/25 15:29 Last Admin: 06/20/25 08:41 Dose: 100 mls/hr Sodium Chloride (Ns) 500 mls @ 999 mls/hr IV .Q31M ONE Stop: 06/19/25 15:33 Last Admin: 06/19/25 15:03 Dose: 999 mls/hr Norepinephrine/Dextrose (Levophed In D5w 8mg/250ml) 8 mg in 250 mls @ 6.628 mls/hr IV .Q24H PRN; Protocol PRN Reason: PER PROTOCOL Stop: 07/18/25 22:25 Last Titration: 06/20/25 13:00 Dose: Infused Lactated Ringer's (Lactated Ringers) 1,000 mls @ 999 mls/hr IV .Q1H1M ONE Stop: 06/19/25 16:03 Last Admin: 06/19/25 15:03 Dose: 999 mls/hr Sodium Chloride (Ns) 500 mls @ 999 mls/hr IV .Q31M ONE Stop: 06/19/25 18:09 Last Admin: 06/19/25 17:47 Dose: 999 mls/hr Lactated Ringer's (Lactated Ringers) 500 mls @ 999 mls/hr IV .Q31M ONE Stop: 06/20/25 02:16 Last Admin: 06/20/25 01:52 Dose: 999 mls/hr Sodium Chloride (Ns) 1,000 mls @ 999 mls/hr IV .Q1H1M ONE Stop: 06/20/25 10:19 Last Admin: 06/20/25 09:23 Dose: 999 mls/hr Lactated Ringer's (Lactated Ringers) 1,000 mls @ 999 mls/hr IV .Q1H1M ONE Stop: 06/20/25 12:41 Last Admin: 06/20/25 12:00 Dose: 999 mls/hr Nicardipine/Sodium Chloride (Cardene Ivpb) 20 mg in 200 mls @ 50 mls/hr IV .Q4H PRN; Protocol PRN Reason: PER PROTOCOL Stop: 07/20/25 11:48 Dobutamine HCl/Dextrose (Dobutrex/D5w Ivpb) 500 mg in 250 mls @ 2.247 mls/hr IV .Q24H COTY Stop: 07/20/25 12:38 Last Infusion: 06/20/25 13:14 Dose: 0 mcg/kg/min, 0 mls/hr Sodium Chloride (Ns) 1,000 mls @ 999 mls/hr IV .Q1H1M ONE Stop: 06/20/25 14:17 Last Admin: 06/20/25 13:19 Dose: 999 mls/hr Lactated Ringer's (Lactated Ringers) 1,000 mls @ 999 mls/hr IV .Q1H1M ONE Stop: 06/20/25 15:07 Last Admin: 06/20/25 14:45 Dose: 999 mls/hr Albumin Human (Albuminex 25% Ivpb) 25 gm in 100 mls @ 100 mls/hr IV X1 ONE Stop: 06/21/25 08:35 Last Admin: 06/21/25 07:42 Dose: 100 mls/hr Sodium Bicarbonate 88.23 meq/ (Dextrose) 588.23 mls @ 100 mls/hr IV .[id number] [facility] Stop: 07/21/25 09:34 Last Admin: 06/21/25 11:00 Dose: 100 mls/hr Ipratropium [place] (Ipratropium Rt 0.5 Mg/ 2.5 Ml Nebu) 0.5 mg INH Q6HRRT COTY Stop: 06/28/25 12:59 Last Admin: 06/04/25 13:34 Dose: 0.5 mg Ipratropium [place] (Ipratropium Rt 0.5 Mg/ 2.5 Ml Nebu) 0.5 mg INH X1 ONE Stop: 06/01/25 01:52 Last Admin: 06/01/25 02:01 Dose: 0.5 mg Ipratropium [place] (Ipratropium Rt 0.5 Mg/ 2.5 Ml Nebu) 0.5 mg INH Q4HRRT [facility] Stop: 07/04/25 18:59 Last Admin: 06/20/25 06:40 Dose: 0.5 mg Ketamine HCl (Ketamine 50 Mg/Ml Vial 10 Ml) 15 mg IVP X1 ONE Stop: 06/19/25 09:00 Last Admin: 06/19/25 09:05 Dose: 15 mg Labetalol HCl (Labetalol Inj 5 Mg/Ml Vial 4 Ml) 20 mg IVP X1 ONE Stop: 06/20/25 11:44 Last Admin: 06/20/25 11:56 Dose: Not Given Lactulose (Lactulose Syrup 20 Gm/30 Ml Udc) 30 gm PO TID COTY; Protocol Stop: 07/05/25 14:44 Last Admin: 06/12/25 06:02 Dose: 30 gm Lactulose (Lactulose Syrup 10 Gm/15 Ml) 200 gm IL Q4HR COTY; Protocol Stop: 07/12/25 11:14 Last Admin: 06/13/25 07:35 Dose: Not Given Lactulose (Lactulose Syrup 20 Gm/30 Ml Udc) 40 gm PO TID COTY; Protocol Stop: 07/12/25 13:59 Last Admin: 06/15/25 05:07 Dose: Not Given Lactulose (Lactulose Syrup 20 Gm/30 Ml Udc) 30 gm PO TID COTY; Protocol Stop: 07/15/25 13:59 Last Admin: 06/19/25 15:30 Dose: Not Given Levalbuterol HCl (Levalbuterol Rt 1.25 Mg/0.5 Ml Nebu) 1.25 mg INH Q6HRRT [facility] Stop: 06/28/25 12:59 Last Admin: 06/04/25 13:34 Dose: 1.25 mg Levalbuterol HCl (Levalbuterol Rt 1.25 Mg/0.5 Ml Nebu) 1.25 mg INH X1 ONE Stop: 06/01/25 01:52 Last Admin: 06/01/25 02:01 Dose: 1.25 mg Levalbuterol HCl (Levalbuterol Rt 1.25 Mg/0.5 Ml Nebu) 1.25 mg INH Q4HRRT [facility] Stop: 07/04/25 18:59 Last Admin: 06/21/25 10:20 Dose: 1.25 mg Lidocaine HCl (Lidocaine Hcl 1% 20 Ml Vial) 6 ml IM X1 ONE Stop: 06/19/25 13:19 Last Admin: 06/19/25 15:31 Dose: Not Given Lidocaine HCl (Lidocaine Hcl 1% 20 Ml Vial) 6 ml INFL X1 ONE Stop: 06/19/25 13:19 Last Admin: 06/19/25 13:18 Dose: 6 ml Lidocaine HCl (Lidocaine Hcl 1% 20 Ml Vial) 10 ml INFL X1 ONE Stop: 06/20/25 09:45 Last Admin: 06/20/25 10:10 Dose: Not Given Lorazepam (Lorazepam 0.5 Mg Tablet) 0.5 mg PO Q8HR PRN PRN Reason: ANXIETY Stop: 06/08/25 09:27 Last Admin: 06/06/25 23:29 Dose: 0.5 mg Melatonin (Melatonin 3 Mg Tablet) 3 mg PO HS ONE Stop: 06/13/25 20:02 Last Admin: 06/13/25 21:31 Dose: 3 mg Melatonin (Melatonin 3 Mg Tablet) 6 mg PO HS ONE Stop: 06/14/25 19:21 Last Admin: 06/14/25 19:43 Dose: 6 mg Melatonin (Melatonin 3 Mg Tablet) 6 mg PO HS [facility] Stop: 07/15/25 20:59 Last Admin: 06/19/25 20:53 Dose: Not Given Melatonin (Melatonin 3 Mg Tablet) 6 mg NG HS [facility] Stop: 07/20/25 20:59 Methylprednisolone Sodium Succinate (Methylprednisolone Sod Succ 62.5 Mg/Ml 2ml Vial) 125 mg IVP X1 ONE Stop: 05/29/25 06:35 Last Admin: 05/29/25 06:47 Dose: 125 mg Midazolam HCl (Midazolam Inj 1 Mg/Ml Vial 2 Ml) 2 mg IVP X1 ONE Stop: 05/31/25 10:48 Last Admin: 05/31/25 10:51 Dose: 2 mg Midazolam HCl (Midazolam Inj 1 Mg/Ml Vial 2 Ml) 1 mg IVP X1 ONE Stop: 06/01/25 02:31 Last Admin: 06/01/25 02:36 Dose: 1 mg Midazolam HCl (Midazolam Inj 1 Mg/Ml Vial 2 Ml) 4 mg IVP X1 ONE Stop: 06/20/25 14:54 Last Admin: 06/20/25 15:05 Dose: 4 mg Midodrine (Midodrine 5 Mg Tablet) 5 mg PO TID PRN PRN Reason: hypotension Stop: 07/02/25 08:14 Last Admin: 06/03/25 20:45 Dose: 5 mg Midodrine (Midodrine 5 Mg Tablet) 5 mg PO X1 ONE Stop: 06/04/25 00:41 Last Admin: 06/04/25 00:58 Dose: 5 mg Midodrine (Midodrine 5 Mg Tablet) 15 mg PO TID COTY Stop: 07/04/25 10:19 Last Admin: 06/19/25 15:30 Dose: Not Given Midodrine (Midodrine 5 Mg Tablet) 15 mg PO X1 ONE Stop: 06/06/25 09:28 Last Admin: 06/06/25 09:40 Dose: 15 mg Midodrine (Midodrine 5 Mg Tablet) 10 mg PO X1 ONE Stop: 06/11/25 01:16 Last Admin: 06/11/25 01:38 Dose: Not Given Midodrine (Midodrine 5 Mg Tablet) 15 mg PO X1 ONE Stop: 06/11/25 01:16 Last Admin: 06/11/25 01:38 Dose: 15 mg Morphine Sulfate (Morphine Sulf Inj 4 Mg/Ml Vial) 2 mg IV X1 ONE Stop: 05/29/25 05:21 Last Admin: 05/29/25 05:31 Dose: 2 mg Nitroglycerin (Nitroglycerin Oint 2% 1 Inch Packet) 1 inch TOP X1 ONE Stop: 05/29/25 05:21 Last Admin: 05/29/25 05:30 Dose: 1 inch Pantoprazole Sodium (Pantoprazole Inj 40 Mg Vial) 40 mg IVP QDAY [facility] Stop: 06/28/25 12:14 Last Admin: 06/07/25 09:14 Dose: 40 mg Pantoprazole Sodium (Pantoprazole 40 Mg Tablet) 40 mg PO QDAY [facility] Stop: 06/28/25 12:14 Last Admin: 06/19/25 09:28 Dose: Not Given Pharmacy Consult (Vancomycin Pharmacy To Dose 1 Each Each) 1 each IV QDAY PRN PRN Reason: PROTOCOL Stop: 06/29/25 08:59 Polyethylene Glycol (Polyethylene Glycol 17 Gm Packet) 17 gm PO QDAY [facility] Stop: 07/02/25 10:29 Last Admin: 06/07/25 11:26 Dose: Not Given Potassium Chloride (Potassium Chloride 20 Meq Tabcr) 40 meq PO X1 ONE Stop: 05/30/25 08:06 Last Admin: 05/30/25 09:22 Dose: 40 meq Potassium Chloride (Potassium Chloride 10% 20 Meq/15 Ml Udc) 40 meq PO X1 ONE Stop: 05/31/25 09:38 Last Admin: 05/31/25 09:58 Dose: 40 meq Potassium Chloride (Potassium Chloride 10% 20 Meq/15 Ml Udc) 60 meq PO X1 ONE Stop: 06/01/25 08:16 Last Admin: 06/01/25 08:14 Dose: 60 meq Potassium Chloride (Potassium Chloride 10% 20 Meq/15 Ml Udc) 40 meq PO X1 ONE Stop: 06/01/25 08:11 Last Admin: 06/01/25 08:36 Dose: Not Given Potassium Chloride (Potassium Chloride 20 Meq Tabcr) 20 meq PO X1 ONE Stop: 06/01/25 15:53 Last Admin: 06/01/25 16:12 Dose: 20 meq Potassium Phos/Sodium Phos (Naph,Kph Mbdb 1 Packet (1.5 Gm)) 1 packet PO X1 ONE Stop: 06/02/25 07:39 Last Admin: 06/02/25 08:16 Dose: 1 packet Potassium Phos/Sodium Phos (Naph,Kph Mbdb 1 Packet (1.5 Gm)) 1 packet PO X1 ONE Stop: 06/02/25 08:16 Last Admin: 06/02/25 08:16 Dose: 1 packet Prednisone (Prednisone 20 Mg Tablet) 40 mg PO QDAY [facility] Stop: 06/14/25 10:05 Last Admin: 06/11/25 09:02 Dose: 40 mg Quetiapine Fumarate (Quetiapine Fumarate 25 Mg Tablet) 25 mg PO X1 ONE Stop: 06/06/25 23:41 Last Admin: 06/06/25 23:46 Dose: 25 mg Quetiapine Fumarate (Quetiapine Fumarate 25 Mg Tablet) 25 mg PO QDAY [facility] Stop: 07/16/25 12:14 Last Admin: 06/17/25 08:28 Dose: 25 mg Quetiapine Fumarate (Quetiapine Fumarate 25 Mg Tablet) 25 mg PO HS COTY Stop: 07/17/25 20:59 Last Admin: 06/18/25 20:30 Dose: 25 mg Rifaximin (Rifaximin 550 Mg Tablet) 550 mg PO BID [facility] Stop: 06/08/25 10:29 Last Admin: 06/08/25 08:47 Dose: 550 mg Rifaximin (Rifaximin 550 Mg Tablet) 550 mg PO BID [facility] Stop: 06/26/25 08:59 Last Admin: 06/19/25 21:01 Dose: 550 mg Rocuronium [place] (Rocuronium Inj 10 Mg/Ml Vial 10 Ml) 70 mg IVP X1 ONE Stop: 06/19/25 10:19 Last Admin: 06/19/25 10:39 Dose: 70 mg Sodium Bicarbonate (Sodium Bicarb Inj 8.4% Syr 50 Ml Syringe) 50 ml IV X1 ONE Stop: 06/20/25 21:31 Last Admin: 06/20/25 21:35 Dose: 50 ml Sodium Bicarbonate (Sodium Bicarb Inj 8.4% Syr 50 Ml Syringe) 50 ml IV X1 ONE Stop: 06/20/25 21:36 Last Admin: 06/20/25 21:38 Dose: 50 ml Sodium Bicarbonate (Sodium Bicarb Inj 8.4% Syr 50 Ml Syringe) 50 ml IV X1 ONE Stop: 06/21/25 01:07 Last Admin: 06/21/25 01:15 Dose: 50 ml Sodium Bicarbonate (Sodium Bicarb Inj 8.4% Syr 50 Ml Syringe) 50 ml IV X1 ONE Stop: 06/21/25 04:16 Last Admin: 06/21/25 04:57 Dose: 50 ml Sodium Bicarbonate (Sodium Bicarb Inj 8.4% 1 Meq/Ml 50 Ml Vial) 50 meq IV X1 ONE Stop: 06/21/25 12:41 Sodium Chloride (Sodium Chloride Rt Becky 0.9% 3 Ml Nebu) 3 ml INH PRN PRN PRN Reason: SOLN Stop: 06/28/25 06:33 Last Admin: 05/29/25 06:52 Dose: 3 ml Sodium Chloride (Sodium Chloride Rt Becky 0.9% 3 Ml Nebu) 3 ml INH PRN PRN PRN Reason: SOLN Stop: 06/28/25 12:06 Sodium Chloride (Sodium Chloride Rt 10% 15 Ml Nebu) 5 ml INH X1 ONE Stop: 05/29/25 12:21 Last Admin: 05/30/25 18:36 Dose: Not Given Sodium Chloride (Sodium Chloride Rt Becky 0.9% 3 Ml Nebu) 3 ml INH X1 ONE Stop: 06/01/25 01:53 Last Admin: 06/01/25 02:02 Dose: 3 ml Sodium Chloride (Sodium Chloride Rt 10% 15 Ml Nebu) 5 ml INH X1 ONE Stop: 06/19/25 14:43 Last Admin: 06/19/25 16:59 Dose: Not Given Spironolactone (Spironolactone 25 Mg Tablet) 25 mg PO QDAY [facility] Stop: 07/01/25 10:29 Last Admin: 06/03/25 08:43 Dose: 25 mg Spironolactone (Spironolactone 25 Mg Tablet) 100 mg PO QDAY [facility] Stop: 07/03/25 11:44 Last Admin: 06/05/25 09:13 Dose: 100 mg Spironolactone (Spironolactone 25 Mg Tablet) 50 mg PO QDAY [facility] Stop: 07/06/25 08:59 Last Admin: 06/08/25 08:47 Dose: 50 mg Spironolactone (Spironolactone 25 Mg Tablet) 25 mg PO BID [facility] Stop: 07/11/25 10:34 Last Admin: 06/12/25 09:02 Dose: 25 mg Spironolactone (Spironolactone 25 Mg Tablet) 25 mg PO QDAY [facility] Stop: 07/15/25 08:59 Last Admin: 06/17/25 08:28 Dose: 25 mg Spironolactone (Spironolactone 25 Mg Tablet) 50 mg PO X1 ONE Stop: 06/16/25 09:17 Last Admin: 06/16/25 11:36 Dose: 50 mg Spironolactone (Spironolactone 25 Mg Tablet) 25 mg NG QDAY COTY Stop: 07/20/25 08:59 Assessment & Plan Plan Patient is a 64 year old male with past medical history of schizophrenia, COPD on supplemental home oxygen, chronic active smoker greater than 40 pack years and status post right inguinal hernia repair in 2018 who presented to ED on 05/29/25 for shortness of breath and admitted telemetry for acute on chronic hypoxic respiratory failure, pleural effusion, pneumonia and pulmonary emboli and upgraded to ICU for vasopressor support and AHRF impending intubation. Nephrology consulted for CRRT secondary to worsening lactic acidosis #Comfort care #HAGMA #Lactic acidosis #CRRT - Patient has had prolonged admission since 05/29 for acute on chronic hypoxic respiratory failure, pleural effusion, pneumonia and pulmonary emboli and upgraded to ICU for vasopressor support and AHRF impending intubation. - Creatinine levels 1.1 --> 1.6 --> 1.7, baseline Cr range 0.8?1.0. - BUN 53, BUN/Cr ratio 31, eGFR 45.1 - HCO3- and pH increasing on serial VBG taken today in the setting of possible overdiuresis - Patient's LA continues to be elevated in the setting of possible active infection and underlying malignancy and hypoxia, worsened acutely overnight Plan: - Started on CRRT overnight at 4AM - Planned to continue over 24 hours with repeat renal panel; however primary team had another [facility] conversation this afternoon with family, decided to transition patient to comfort care. Will withdraw CRRT. #Acute on chronic encephalopathy #History of schizophrenia #Agitation/Anxiety vs Hospital Acquired Delirium #Shock #Hypotension #Acute on chronic hypoxic respiratory failure 2/2 #Bilateral PNA #ARDS #Recurrent pleural effusions #Bilateral pulmonary emboli #Underlying COPD #Right lung mass #Bilateral Pulmonary Embolisms #Cirrhosis #Hyperbilirubinemia #Transaminitis #Anasarca #YASMIN - worsening #?Contraction Alkalosis #Electrolyte imbalance #Hypokalemia - resolving #Right upper lung mass #SURYA #PNA 2/2 GPC VS GNR #Parapneumonic Effusion. - Defer to ICU team for management Thank you for your consultation, please do not hesitate to reach out if you have any question or concern Patient plan of care was discussed with the attending physician, Dr. Infante. Jeniffer Wilkins DO, PGY-1 Attending Provider Attestation/Addendum Patient currently seen and examined with resident physician Dr. Wilkins. Note reviewed, agree with findings and recommendations. Patient currently seen in ICU Patient with multisystem organ failure. On 3 pressors. Due to severe intractable metabolic acidosis, azotemia dialysis was initiated. Family requested all aggressive measures. Patient will be started on CRRT due to hemodynamic instability Vas-Cath placed by ICU team. Currently on CRRT. CRRT for 24 hours Sodium 138 Potassium 2.0 Calcium 3.5 Citrasate No heparin Blood flow 150-200 Dialysate flow 100 Saline flushes 100 mL/h Renal panel every 6 hours along with magnesium check Care discussed with ICU team Overall long-term prognosis remains very poor. Thank you Dr. Nickerson for allowing me to participate in care of Mr. Zaldivar
[2025-06-21 14:10] LABS: Reflex Lactate? Y
[2025-06-21] MEDS: Morphine IV Drip 100mg/100ml 100 ML IV (14:21)
--- NOTE | 2025-06-21 15:33 | DES_ITS ---
<Statement entered by Junaid Nickerson MD - 06/23/25 15:13> I was not present at the bedside at time of . I was notified of the patient's demise via telephone by the above resident. Condolences given to family members. Documentation for date of: 06/21/25 Pronouncement Note Date and Time of Date of : 06/21/25 Time of : 15:30 PCOD Preliminary cause of : Multiple organ failure Summary Additional details: 15:25 nurse calls with concerns patient had . Patient examined, no family was in the room, volunteer from no person dies alone present, nurse present, respiratory therapist present. He was not breathing, his head was held back, mouth open, eyes open, appeared ashen, no chest rising. Pupils non reactive to light, no breath sounds auscultated and no heart sounds auscultated for one minute along with no pulses palpated. Patient pronounced at 15:30. I person ally called family to notify. Additional Data Confirmation of : no pulse, no respirations, no heart sounds and pupils fixed and dilated Family: attempt made Additional persons at bedside: other Attending/PCP notified?: Yes Attending physician: Dr. Junaid Nickerson Was code activated?: No
--- NOTE | 2025-06-21 15:39 | DES_ITS ---
<Statement entered by Junaid Nickerson MD - 06/23/25 15:12> Attending Attestation: Patient seen and examined on final date of service. See my attestation to daily progress note for full details of plan of care. In brief, patient with significant multifocal organ failure with development of acute renal injury compounded both liver and cephalopathy. Patient was transitioned over to comfort medications. Patient briefly after discontinuation of vasopressor dosing. Condolences given to family by telephone, they remain appreciative for all aggressive cares despite patient's poor prognosis. <Statement entered by Artie Arguelles MD - 06/22/25 15:03> Patient was examined with the team including attending physician. Note reviewed, I agree with the summary as documented. - Artie Arguelles MD PGY 3 Disclaimer: The document may contain phonetic/typographic errors due to voice recognition software. Documentation for date of: 06/21/25 Summary Date and Time Date of admission: 05/29/25 12:57 Date of : 06/21/25 Time of : 15:30 Summary Hospital Course: Patient is a 64 year old male with past medical history of schizophrenia, COPD on supplemental home oxygen, chronic active smoker greater than 40 pack years and status post right inguinal hernia repair in 2018 who presented to ED on 05/29/25 for shortness of breath and admitted telemetry for acute on chronic hypoxic respiratory failure, pleural effusion, pneumonia and pulmonary emboli. Patient initially upgraded to ICU for acute respiratory distress and pressor support on 05/31/25 and downgraded to medicine floors s/p R thoracentesis the next day, and O2 requirements were improving. Throughout hospital stay, patient has been gradually requiring increased O2 requirements, alternating between BIPAP and HFNC. Patient has gotten three thoracentesis procedures since being admitted, started on Heparin gtt for PE seen on CTA, Lactulose, Spironolactone, and Midodrine for his cirrhosis, given scheduled antipsychotics and anxiolytics for underlying psych disorder and ongoing agitation with his BIPAP. Oncology was consulted for patient's R lung mass seen on imaging, and recommended lung biopsy when patient is stable and infection is cleared, and will f/u outpt. There was a rapid response called around 22:18 for low MAP in the mid 50s, with a BP of 72/51, despite midodrine 15mg given 30 min later. Patient also had received Clonazepam 0.25mg and Seroquel 25mg after seen very agitated and yelling at staff. Patient appears to be very somnolent, unable to state his name or mumble intelligible words. Patient?s WOB also was increasing, RR in the 30s, and decision was made to upgrade patient to ICU for vasopressor support and AHRF impending intubation d/t inability to protect airway. Patient?s brother was contacted and made aware of patient?s current status and guarded prognosis, and would patient to remain a FULL code. Shortly after patient arrived in ICU, patient was able to state his name and denied any complaints including any SOB or chest pain. At this time held off on intubation, as patient's WOB improved and satting well above 92% on HFNC 40L and 100% FiO2. In ICU patient was AO x 3 but became increasingly agitated with increased work of breathing and was overbreathing on BiPAP with worsening confusion which is why his son was contacted surrogate decision maker. Brother was no longer able to be contacted and son became surrogate decision maker and consented to procedures A-line and intubation as well as central line and chest tube. Pressors and sedation were initiated, and patient was kept at full code. A chest tube was placed and 1.7L of strawberry red fluid were drained. Son also consented for BAL and potential lung biopsy that did not occur because patient became increasingly more unstable requiring increased pressors. Patient continued to overbreath on ventilator most likely due to his increasing lactic acidosis, and required increasing sedation. Multiple thoracentesis were done all draining +1L of fluid and sent for analysis and cytology. A CTCAP was done which did not reveal any remarkable findings. His son was contacted again and changed his code status to DNR. Over the course of the day and night patients pH continued to drop, his son was contacted about emergent hemodialysis and they decided to change him back to full code. TABLO was initiated, but lactic acid continued to rise and pH remained at 7.1. His liver went in to a shock state, anion gap continued to rise and T bili continued to elevate. Family was contacted again in regards to the patient's multiorgan failure and shock. The son agreed that father will not be DNR. He is agreeable to talking about comfort measures after giving dialysis a chance . He was explained that the prognosis is poor and the son was allowed to FaceTime his father to say goodbye. Patient continued to deteriorate while on TABLO and was going to require his 4th pressor, the son called back and we discussed comfort measures which were initiated, following which the patient peacefully. Additional Data Confirmation of as documented by pronouncing clinician: no pulse, no respirations, no heart sounds and pupils fixed and dilated Family: contacted and attempt made Additional persons at bedside: other Attending/PCP notified?: Yes Attending physician: Dr. Junaid Nickerson Visit Providers Provider Primary care physician: BC Caraballo Consults: 05/29/25 05:20 Referral Respiratory Therapy Stat Comment: BiPAP 05/29/25 16:05 Consult to Cardiology Routine Comment: PE Consulting Provider: Kofi Diaz 05/29/25 16:32 Health [facility]ity Referral - Knowledge Deficit Routine Comment: Positive screening for knowledge deficit needs. [facility]ity Referral - Nutrition Routine Comment: Positive screening for nutrition needs. [facility]ity Referral - Transportation Routine Comment: Positive screening for transportation needs. 05/29/25 17:38 Referral Smoking Cessation Counseling Routine Comment: Smoking Cessation Education Needed 05/30/25 08:10 Consult to Oncology Routine Comment: Lung Mass Consulting Provider: Bismark Love 06/02/25 11:52 Consult to General Surgery Routine Comment: significant L inguinal hernia Consulting Provider: Christina Pritchett 06/12/25 10:20 Consult to Pulmonology Routine Comment: Recurrent pleural effusions Consulting Provider: Magdalena Cuello 06/21/25 04:44 Consult to Nephrology Stat Comment: Consulting Provider: Ilsa Infante Diagnosis PCOD Cause of : Multiple organ failure Discharge Plan Plan Patient Disposition: Prescriptions/Referrals Referrals: Jitendra Rolle FNP [Primary Care Provider] Patient/Caregiver Discharge Instructions Print Language: Setswana Discharge Order Discharge Orders: Discharge (Routine); Ordered 06/21/25 Ordered By: Charlie Luna
[2025-06-30 07:11] LABS: Cortisol,total,LC/MS/MS* 30.1 mcg/dL
== END 2025-06-21 15:30 | disposition expired | DRG 133 ==
LOC: SERX 09:00 → SERHOLD 13:11 → S2NX 14:20 → S2SX 05-31 15:34 → S2NX 06-04 08:38 → S2SX 06-04 08:38 → SERHOLD 06-04 08:38 → S2SX 06-04 08:39 → S3NX 06-04 08:39 → S2NX 06-04 08:39 → S2SX 06-19 11:24
PROVIDERS: Emergency Medicine; Internal Medicine; Student in an Organized Health Care Education/Training Program; Admitting Provider Internal Medicine; Emergency Provider Family Medicine; Visit Provider Internal Medicine Critical Care Medicine
DX: J96.21 Acute and chronic respiratory failure with hypoxia (principal); F20.9 Schizophrenia, unspecified; F17.210 Nicotine dependence, cigarettes, uncomplicated; F15.10 Other stimulant abuse, uncomplicated; I26.99 Other pulmonary embolism without acute cor pulmonale; J44.0 Chronic obstructive pulmonary disease with (acute) lower respiratory infection; E87.20 Acidosis, unspecified; R59.1 Generalized enlarged lymph nodes; R18.8 Other ascites; D69.6 Thrombocytopenia, unspecified; E61.1 Iron deficiency; D64.9 Anemia, unspecified; F41.9 Anxiety disorder, unspecified; I95.9 Hypotension, unspecified; K74.60 Unspecified cirrhosis of liver; Z71.6 Tobacco abuse counseling; D68.59 Other primary thrombophilia; E87.1 Hypo-osmolality and hyponatremia; E87.6 Hypokalemia; F05 Delirium due to known physiological condition; F10.10 Alcohol abuse, uncomplicated; G47.00 Insomnia, unspecified; J84.10 Pulmonary fibrosis, unspecified; K72.00 Acute and subacute hepatic failure without coma; K40.90 Unilateral inguinal hernia, without obstruction or gangrene, not specified as recurrent; N17.9 Acute kidney failure, unspecified; J44.1 Chronic obstructive pulmonary disease with (acute) exacerbation; J15.4 Pneumonia due to other streptococci; R57.8 Other shock; J90 Pleural effusion, not elsewhere classified; J10.08 Influenza due to other identified influenza virus with other specified pneumonia; G93.40 Encephalopathy, unspecified; Z99.81 Dependence on supplemental oxygen; Z51.5 Encounter for palliative care; Z59.00 Homelessness unspecified; Z66 Do not resuscitate; Z79.899 Other long term (current) drug therapy; Y95 Nosocomial condition; R59.0 Localized enlarged lymph nodes
CPT/HCPCS: 36415; 36600; 70470; 71045; 71275; 74174; 74177; 76705; 76870; 80053; 80061; 80069; 80074; 80202; 80307; 80320; 80329; 81001; 82010; 82140; 82150; 82248; 82533; 82550; 82607; 82728; 82746; 82803; 82945; 83036; 83540; 83550; 83605; 83615; 83690; 83735; 83880; 84100; 84145; 84157; 84443; 84478; 84484; 85025; 85379; 85384; 85610; 85652; 85730; 86140; 86331; 86635; 87040; 87070; 87075; 87077; 87081; 87106; 87186; 87205; 87502; 87811; 89051; 92610; 93005; 93306; 93970; 94002; 94003; 94640; 94660; 94664; 94667; 94762; 96365; 96366; 96375; 99291; 99292; A4649; A9270; C1729; J0456; J0692; J0696; J1250; J1630; J1643; J1644; J1938; J1956; J2250; J2270; J2371; J2470; J2543; J2598; J2704; J2919; J3010; J3375; J3475; J3480; J3490; J7030; J7050; J7060; J7120; J7512; J7612; J7644; J7999; P9047; Q9967; G0480; J7611